=== PATIENT | female | born 1950 | race Caucasian/White ===

== ENCOUNTER → 2017-06-16 09:21 | Outpatient (CLI) | payer MEDICARE, OTHER, SELFPAY ==
[2017-06-16 10:08] LABS: Hemoglobin A1C 6.4 % (0.0-7.0)
[2017-06-16 10:50] LABS: Alanine Aminotransferase 48 U/L (12-78); Albumin Level 3.6 gm/dL (3.4-5.0); Albumin/Globulin Ratio 1.2 (1.1-1.8); Alkaline Phosphatase 139 U/L (46-116); Anion Gap 15.3 mEq/L (5-15); Aspartate Amino Transferase 37 U/L (15-37); Bilirubin,Total 0.6 mg/dL (0.2-1.0); Blood Urea Nitrogen 17 mg/dL (7-18); Carbon Dioxide 29 mmol/L (21.0-32.0); Chloride 103 mmol/L (98-107); Chol/HDL Ratio 3.9 (1-3.5); Cholesterol 205 mg/dL (140-200); Creatinine,Serum 0.74 mg/dL (0.55-1.02); Estimated Glomerular Filt Rate 79 ml/min (>60); GFR (African American) 95 ML/MIN (>60); Globulin 3.1 gm/dl (1.3-3.2); Glucose 105 mg/dL (74-106); HDL Cholesterol 52 mg/dL (29-89); LDL Cholesterol 133 mg/dL (0-130); Potassium 3.3 mmoL/L (3.5-5.1); Sodium 144 mmol/L (136-145); Total Protein,Serum 6.7 gm/dL (6.4-8.2); Triglycerides 98 mg/dL (30-200); Uric Acid 4.6 mg/dL (2.6-7.2); VLDL Cholesterol 20 mg/dL (0-40)
[2017-06-18 17:12] LABS: Levetiracetam (Keppra) 54.4 ug/mL (10.0-40.0)
== END ==
PROVIDERS: PCP Family Medicine; Visit Provider Family Medicine
DX: E79.0 Hyperuricemia without signs of inflammatory arthritis and tophaceous disease (principal); R73.9 Hyperglycemia, unspecified; G40.909 Epilepsy, unspecified, not intractable, without status epilepticus; I10 Essential (primary) hypertension; E78.5 Hyperlipidemia, unspecified
CPT/HCPCS: 36415; 80053; 80061; 80177; 83036; 84550

== ENCOUNTER → 2017-11-30 10:00 | Outpatient (CLI) | payer MEDICARE, OTHER, SELFPAY ==
[2017-11-30 11:05] LABS: Basophils % 0.4 % (0.1-2.0); Eosinophils # 0.2 K/mm3 (0.0-0.4); Eosinophils % 2.2 % (0.1-12.0); Hematocrit 39.1 % (37.0-47.0); Hemoglobin 12.1 g/dL (12.2-16.2); Lymphocytes # 2.4 K/mm3 (0.7-4.5); Lymphocytes % 29.4 K/mm3 (10-50); Mean Corpuscular Hemoglobin 25.3 pg (27.0-31.2); Mean Corpuscular Volume 81.5 fl (81-99); Mean Platelet Volume 7.5 fl (7.4-10.4); Monocytes # 0.4 K/mm3 (0.1-1.0); Monocytes % 4.6 % (1.7-9.3); Neutrophils # 5.1 K/mm3 (1.8-7.8); Neutrophils % 63.4 % (37.0-80.0); Platelet Count 325 K/mm3 (142-424); Red Cell Distribution Width 14.5 % (11.5-17.5); White Blood Count 8.1 K/mm3 (4.8-10.8)
[2017-11-30 11:25] LABS: Alanine Aminotransferase 26 U/L (12-78); Albumin Level 3.5 gm/dL (3.4-5.0); Albumin/Globulin Ratio 1.1 (1.1-1.8); Alkaline Phosphatase 122 U/L (46-116); Anion Gap 10.6 mEq/L (5-15); Aspartate Amino Transferase 23 U/L (15-37); Bilirubin,Total 0.6 mg/dL (0.2-1.0); Blood Urea Nitrogen 13 mg/dL (7-18); Calcium 8.6 mg/dL (8.5-10.1); Carbon Dioxide 32 mmol/L (21.0-32.0); Chloride 100 mmol/L (98-107); Creatinine,Serum 0.64 mg/dL (0.55-1.02); Estimated Glomerular Filt Rate 93 ml/min (>60); GFR (African American) 112 ML/MIN (>60); Globulin 3.2 gm/dl (1.3-3.2); Glucose 88 mg/dL (74-106); Potassium 3.6 mmoL/L (3.5-5.1); Sodium 139 mmol/L (136-145); Total Protein,Serum 6.7 gm/dL (6.4-8.2)
[2017-11-30 11:26] LABS: Chol/HDL Ratio 3.9 (1-3.5); Cholesterol 221 mg/dL (140-200); HDL Cholesterol 56 mg/dL (29-89); LDL Cholesterol 145 mg/dL (0-130); Magnesium 2.1 mg/dL (1.4-2.2); Triglycerides 101 mg/dL (30-200); Uric Acid 3.6 mg/dL (2.6-7.2); VLDL Cholesterol 20 mg/dL (0-40)
[2017-11-30 12:24] LABS: Hemoglobin A1C 5.8 % (0.0-7.0)
[2017-11-30 12:28] LABS: Erythrocyte Sedimentation Rate 56 mm/hr (0-30)
[2017-12-01 10:14] LABS: Immunoglobulin A, Qn 307 mg/dL (87-352); Immunoglobulin G, Qn 705 mg/dL (700-1600); Immunoglobulin M, Qn 35 mg/dL (26-217); RA Latex Turbid. <10.0 IU/mL (0.0-13.9)
[2017-12-01 16:38] LABS: Cytoplasmic (C-ANCA) <1:20 titer (Neg:<1:20)
[2017-12-02 08:07] LABS: Anti-DNA (DS) Ab Qn 3 IU/mL (0-9); Hepatitis B Surface Antigen Negative (Negative)
[2017-12-02 08:08] LABS: Perinuclear (P-ANCA) <1:20 titer (Neg:<1:20)
== END ==
PROVIDERS: Family Medicine; Visit Provider Psychiatry & Neurology Neurology
DX: I10 Essential (primary) hypertension (principal); E78.5 Hyperlipidemia, unspecified; E11.9 Type 2 diabetes mellitus without complications; M21.371 Foot drop, right foot; G40.909 Epilepsy, unspecified, not intractable, without status epilepticus
CPT/HCPCS: 36415; 80053; 80061; 80177; 82784; 83036; 83735; 84550; 85025; 85651; 86225; 86256; 86431; 87340

== ENCOUNTER → 2018-08-05 09:20 | Outpatient (CLI) | payer MEDICARE, OTHER, SELFPAY ==
[2018-08-06 12:28] LABS: Occult Blood,Stool Negative (Negative)
[2018-08-06 12:28] LABS: Occult Blood,Stool Negative (Negative)
== END ==
PROVIDERS: Visit Provider Nurse Practitioner Acute Care
DX: R10.9 Unspecified abdominal pain (principal)
CPT/HCPCS: 82272; G0328

== ENCOUNTER → 2018-08-06 11:35 | Outpatient (CLI) | payer MEDICARE, OTHER, SELFPAY ==
[2018-08-06 12:28] LABS: Occult Blood,Stool Negative (Negative)
== END ==
PROVIDERS: Visit Provider Nurse Practitioner Acute Care
DX: R10.9 Unspecified abdominal pain (principal)
CPT/HCPCS: 82272; G0328

== ENCOUNTER → 2018-10-04 11:32 | Outpatient (CLI) | payer MEDICARE, OTHER, SELFPAY ==
[2018-10-04 12:02] LABS: Basophils # 0.1 K/mm3 (0-0.2); Basophils % 0.9 % (0.1-2.0); Eosinophils # 0.2 K/mm3 (0.0-0.4); Eosinophils % 2.5 % (0.1-12.0); Hematocrit 34.2 % (37.0-47.0); Hemoglobin 10.9 g/dL (12.2-16.2); Lymphocytes # 2.9 K/mm3 (0.7-4.5); Mean Corpuscular HGB Conc 31.8 g/dL (31.8-35.4); Mean Corpuscular Hemoglobin 27.3 pg (27.0-31.2); Mean Corpuscular Volume 85.8 fl (81-99); Mean Platelet Volume 7.2 fl (7.4-10.4); Monocytes # 0.4 K/mm3 (0.1-1.0); Monocytes % 4.4 % (1.7-9.3); Neutrophils # 5.3 K/mm3 (1.8-7.8); Neutrophils % 59.3 % (37.0-80.0); Platelet Count 372 K/mm3 (142-424); Red Blood Count 3.98 M/mm3 (4.20-5.40); Red Cell Distribution Width 14.7 % (11.5-17.5); White Blood Count 8.9 K/mm3 (4.8-10.8)
[2018-10-04 14:41] LABS: Alanine Aminotransferase 28 U/L (12-78); Albumin Level 4.2 gm/dL (3.4-5.0); Albumin/Globulin Ratio 1.2 (1.1-1.8); Alkaline Phosphatase 104 U/L (46-116); Anion Gap 15.2 mEq/L (5-15); Aspartate Amino Transferase 23 U/L (15-37); Bilirubin,Total 0.5 mg/dL (0.2-1.0); Blood Urea Nitrogen 25 mg/dL (7-18); Calcium 9.5 mg/dL (8.5-10.1); Carbon Dioxide 29 mmol/L (21.0-32.0); Chloride 102 mmol/L (98-107); Chol/HDL Ratio 3.8 (1-3.5); Cholesterol 252 mg/dL (140-200); Creatinine,Serum 0.89 mg/dL (0.55-1.02); Estimated Glomerular Filt Rate 63 ml/min (>60); GFR (African American) 77 ML/MIN (>60); Globulin 3.5 gm/dl (1.3-3.2); Glucose 98 mg/dL (74-106); HDL Cholesterol 66 mg/dL (29-89); LDL Cholesterol 173 mg/dL (0-130); Magnesium 2.5 mg/dL (1.4-2.2); Potassium 4.2 mmoL/L (3.5-5.1); Sodium 142 mmol/L (136-145); Total Protein,Serum 7.7 gm/dL (6.4-8.2); Triglycerides 66 mg/dL (30-200); Uric Acid 4.2 mg/dL (2.6-7.2); VLDL Cholesterol 13 mg/dL (0-40)
[2018-10-04 18:44] LABS: Hemoglobin A1C 5.5 % (0.0-7.0)
[2018-10-05 09:18] LABS: Iron 59 ug/dL (27-139); UIBC 265 ug/dL (118-369)
[2018-10-05 12:43] LABS: Iron Saturation 18 % (15-55)
[2018-10-07 08:06] LABS: Levetiracetam (Keppra) 65.9 ug/mL (10.0-40.0)
== END ==
PROVIDERS: Visit Provider Family Medicine
DX: E11.9 Type 2 diabetes mellitus without complications (principal); I10 Essential (primary) hypertension; E78.5 Hyperlipidemia, unspecified; E79.0 Hyperuricemia without signs of inflammatory arthritis and tophaceous disease; D50.9 Iron deficiency anemia, unspecified; G40.909 Epilepsy, unspecified, not intractable, without status epilepticus
CPT/HCPCS: 36415; 80053; 80061; 80177; 83036; 83540; 83550; 83735; 84550; 85025

== ENCOUNTER → 2019-01-25 14:01 | Outpatient (POV) | payer MEDICARE, OTHER, SELFPAY | DX: Z00.00 Encounter for general adult medical examination without abnormal findings (principal) ==

== ENCOUNTER → 2019-02-22 15:20 | Outpatient (POV) | payer MEDICARE, OTHER, SELFPAY | DX: Z00.00 Encounter for general adult medical examination without abnormal findings (principal) ==

== ENCOUNTER → 2019-03-29 14:30 | Outpatient (POV) | payer MEDICARE, OTHER, SELFPAY | DX: Z00.00 Encounter for general adult medical examination without abnormal findings (principal) ==

== ENCOUNTER → 2019-09-15 09:15 | Outpatient (CLI) | payer MEDICARE, OTHER, SELFPAY ==
[2019-09-15 11:27] LABS: Chloride 101 mmol/L (98-107)
[2019-09-15 11:28] LABS: Potassium 4.1 mmoL/L (3.5-5.1); Sodium 142 mmol/L (136-145)
[2019-09-15 11:30] LABS: Alanine Aminotransferase 27 U/L (12-78); Albumin Level 4.1 g/dl (3.5-5.0); Albumin/Globulin Ratio 1.6 (1.1-1.8); Alkaline Phosphatase 106 U/L (38-126); Anion Gap 11.1 mEq/L (5-15); Aspartate Amino Transferase 40 U/L (14-36); Bilirubin,Total 0.3 mg/dl (0.2-1.3); Blood Urea Nitrogen 34 mg/dl (7-17); Carbon Dioxide 34 mmol/L (22.0-30.0); Cholesterol 135 mg/dl (140-200); Estimated Glomerular Filt Rate 49 ml/min (>60); GFR (African American) 60 ML/MIN (>60); Globulin 2.6 g/dL (1.3-3.2); Total Protein,Serum 6.7 g/dl (6.3-8.2); Triglycerides 89 mg/dl (30-150); Uric Acid 4.3 mg/dl (2.5-6.2); VLDL Cholesterol 18 mg/dL (0-40)
[2019-09-15 11:31] LABS: Chol/HDL Ratio 2.3 (1-3.5); HDL Cholesterol 60 mg/dl (40-60)
[2019-09-15 11:37] LABS: Calcium 8.9 mg/dl (8.4-10.2)
[2019-09-15 11:42] LABS: Direct LDL Cholesterol 60.93 mg/dL (100-129)
[2019-09-15 11:49] LABS: Glucose 78 mg/dl (74-100)
[2019-09-15 18:04] LABS: Hemoglobin A1C 5.9 % (4.0-6.0)
[2019-09-17 16:19] LABS: Levetiracetam (Keppra) 75.4 ug/mL (10.0-40.0)
== END ==
PROVIDERS: Visit Provider Family Medicine
DX: G40.909 Epilepsy, unspecified, not intractable, without status epilepticus (principal); E79.0 Hyperuricemia without signs of inflammatory arthritis and tophaceous disease; E78.5 Hyperlipidemia, unspecified; I10 Essential (primary) hypertension
CPT/HCPCS: 36415; 80053; 80061; 80177; 83036; 84550

== ENCOUNTER → 2019-12-20 14:40 | Outpatient (POV) | payer MEDICARE, OTHER, SELFPAY | PROVIDERS: PCP Family Medicine | DX: Z00.00 Encounter for general adult medical examination without abnormal findings (principal) ==

== ENCOUNTER → 2019-12-26 10:33 | Outpatient (CLI) | payer MEDICARE, OTHER, SELFPAY ==
[2019-12-27 15:14] LABS: Covid-19 Nasal PCR Sendout Lex NOT DETECTED
== END ==
LOC: UTC.OUT 10:37 → COVID.OUT 10:45
PROVIDERS: PCP Family Medicine; Visit Provider Family Medicine
DX: Z03.818 Encounter for observation for suspected exposure to other biological agents ruled out (principal)
CPT/HCPCS: U0004

== ENCOUNTER → 2020-02-29 12:16 | Outpatient (CLI) | payer MEDICARE, OTHER, SELFPAY ==
[2020-03-01 14:21] LABS: Covid-19 Nasal PCR Sendout Lex NOT DETECTED
== END ==
PROVIDERS: PCP Family Medicine; Visit Provider Family Medicine
DX: Z03.818 Encounter for observation for suspected exposure to other biological agents ruled out (principal)
CPT/HCPCS: U0004

== ENCOUNTER → 2020-03-27 14:39 | Outpatient (POV) | payer MEDICARE, OTHER, SELFPAY | DX: Z00.00 Encounter for general adult medical examination without abnormal findings (principal) ==

== ENCOUNTER → 2020-04-03 14:31 | Outpatient (POV) | payer MEDICARE, OTHER, SELFPAY | DX: Z00.00 Encounter for general adult medical examination without abnormal findings (principal) ==

== ENCOUNTER → 2020-05-13 09:49 | Outpatient (CLI) | payer MEDICARE, OTHER, SELFPAY ==
[2020-05-13 10:58] LABS: Alanine Aminotransferase 23 U/L (12-78); Albumin Level 4.6 g/dl (3.5-5.0); Albumin/Globulin Ratio 1.7 (1.1-1.8); Alkaline Phosphatase 114 U/L (38-126); Anion Gap 12.4 mEq/L (5-15); Aspartate Amino Transferase 40 U/L (14-36); Bilirubin,Total 0.6 mg/dl (0.2-1.3); Blood Urea Nitrogen 34 mg/dl (7-17); Calcium 9.4 mg/dl (8.4-10.2); Carbon Dioxide 33 mmol/L (22.0-30.0); Chloride 99 mmol/L (98-107); Chol/HDL Ratio 2.4 (1-3.5); Cholesterol 180 mg/dl (140-200); Estimated Glomerular Filt Rate 49 ml/min (>60); GFR (African American) 60 ML/MIN (>60); Globulin 2.7 g/dL (1.3-3.2); Glucose 109 mg/dl (74-100); HDL Cholesterol 74 mg/dl (40-60); Potassium 4.4 mmoL/L (3.5-5.1); Sodium 140 mmol/L (136-145); Total Protein,Serum 7.3 g/dl (6.3-8.2); Triglycerides 102 mg/dl (30-150); Uric Acid 4.9 mg/dl (2.5-6.2); VLDL Cholesterol 20 mg/dL (0-40)
[2020-05-13 11:17] LABS: Direct LDL Cholesterol 72.71 mg/dL (100-129)
[2020-05-13 11:46] LABS: Hemoglobin A1C 6.2 % (4.0-6.0)
[2020-05-16 11:01] LABS: Levetiracetam (Keppra) 92.4 ug/mL (10.0-40.0)
== END ==
PROVIDERS: Visit Provider Family Medicine
DX: E79.0 Hyperuricemia without signs of inflammatory arthritis and tophaceous disease (principal); E78.5 Hyperlipidemia, unspecified; E11.9 Type 2 diabetes mellitus without complications; I10 Essential (primary) hypertension; G40.909 Epilepsy, unspecified, not intractable, without status epilepticus
CPT/HCPCS: 36415; 80053; 80061; 80177; 83036; 84550

== ENCOUNTER → 2020-06-22 11:29 | Outpatient (CLI) | payer MEDICARE, OTHER, SELFPAY ==
[2020-06-22 12:20] LABS: Basophils # 0.1 K/mm3 (0-0.2); Basophils % 0.7 % (0.1-2.0); Eosinophils # 0.4 K/mm3 (0.0-0.4); Eosinophils % 3.3 % (0.1-12.0); Hematocrit 33.5 % (37.0-47.0); Hemoglobin 10.5 g/dL (12.2-16.2); Lymphocytes # 2.5 K/mm3 (0.7-4.5); Lymphocytes % 22.4 % (10-50); Mean Corpuscular HGB Conc 31.2 g/dL (31.8-35.4); Mean Corpuscular Volume 86.3 fl (81-99); Mean Platelet Volume 7.6 fl (7.4-10.4); Monocytes # 0.4 K/mm3 (0.1-1.0); Monocytes % 3.3 % (1.7-9.3); Neutrophils # 7.8 K/mm3 (1.8-7.8); Neutrophils % 70.2 % (37.0-80.0); Platelet Count 385 K/mm3 (142-424); Red Blood Count 3.88 M/mm3 (4.20-5.40); Red Cell Distribution Width 15.6 % (11.5-17.5); White Blood Count 11.1 K/mm3 (4.8-10.8)
[2020-06-22 12:40] LABS: Iron 60 ug/dL (37-170)
[2020-06-22 13:16] LABS: Ferritin 89.8 ng/ml (11.1-264)
[2020-06-22 15:08] LABS: Coronavirus 19 IgG Antibody Negative (Negative); Coronavirus 19 IgM Antibody Negative (Negative)
== END ==
PROVIDERS: Physician Assistant Surgical; Visit Provider Internal Medicine Gastroenterology
DX: Z01.812 Encounter for preprocedural laboratory examination; Z11.52 Encounter for screening for COVID-19; E83.10 Disorder of iron metabolism, unspecified; E53.8 Deficiency of other specified B group vitamins; Z98.84 Bariatric surgery status
CPT/HCPCS: 36415; 82728; 83540; 85025; 86328

== ENCOUNTER 2020-06-24 12:16 | Day surgery (SDC) | payer MEDICARE, OTHER, SELFPAY ==
[2020-06-18 14:09] VITALS: BMI 29.9
[2020-06-24] VITALS (7 sets, daily range): BP systolic 95–128; BP diastolic 46–84; PULSE 62–93; RESP 12–20; TEMP 36.4–36.7; O2SAT 95–98
--- NOTE | 2020-06-24 14:27 | P.PCN_ITS ---
[facility] Procedure Note Procedure Note:: Colonoscopy Procedure Report: Colonoscopy with cold biopsies Endoscopist: Mike Rich II, MD Referring physician: Broderick Roberts MD Date of Procedure: June 24, 2020 Equipment: Olympus 180 variable stiffness pediatric colonoscope Sedation: MAC sedation Indication: Mrs. Mondragon is a 69-year-old female with chronic left lower quadrant abdominal pain and IBS. The patient does have a history of sucrase isomaltase deficiency and has improved with dietary changes. The patient does take a mixture of CALM and Konsyl. She has intermittent left lower quadrant abdominal pain that can be excruciating every couple of weeks. She reports no rectal bleeding and was Hemoccult negative last year. She reports no weight loss, change in bowel habits or family history of colon cancer. The patient's last colonoscopy was December 2012. She had a CAT scan of the abdomen and pelvis in April 2015 that showed some sigmoid diverticulosis. 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 She does report getting some leakage or fecal incontinence with fecal residue in her underpants. She also reports having back surgery. Procedure: Prior to the procedure, a history and physical exam was performed, and patient's medications and allergies were reviewed. The risks, benefits and alternatives of the sedation and procedure were discussed with the patient. All questions were answered and informed consent was obtained. The patient was brought to the procedure room. Patient identification and proposed procedure were verified by the physician and the nurse. The patient was placed in a left lateral decubitus position and the scope was passed under direct vision. Throughout the procedure, the patient's blood pressure, pulse, and oxygen saturations were monitored continuously. The colonoscopy was accomplished without difficulty. The patient tolerated the procedure well. Findings: On digital rectal examination there was normal rectal tone. There were no external hemorrhoids. The colonoscope was introduced through the anal canal to the rectum and advanced to the cecum. The ileocecal valve and appendiceal orifice were identified. The scope was advanced a short distance into the ileum which appeared grossly normal. The scope was then withdrawn into the colon. The cecum, ascending and transverse colon and mucosa were grossly normal. There were scattered diverticuli throughout the descending and sigmoid colon (LEFT colon). Cold biopsies were taken from the left colon/sigmoid colon to rule out microscopic colitis. The rectum itself was normal. Upon retroflexion within the rectum there were grade 1-2 internal hemorrhoids. The preparation was fair to good throughout with Kelly Preparation Score of 7 out of 9. The cecal time was 10 minutes. Impression: 1. Left-sided diverticulosis 2. Grade 1-2 internal hemorrhoids Plan: I will follow-up the biopsies. I would encourage bulk fiber but I would like for her to hold the magnesium based CALM. I do suspect that she has some fecal incontinence and obstipation related to some sacral nerve impairment. The patient will not require surveillance/screening colonoscopy again for 10 years by ACS guidelines.
== END 2020-06-24 15:18 | disposition home or self-care (01) ==
LOC: OUTP 12:19
PROVIDERS: PCP Family Medicine; Visit Provider Internal Medicine Gastroenterology
PROC: 0DJD8ZZ Inspection of Lower Intestinal Tract, Via Natural or Artificial Opening Endoscopic (ICD-10-PCS; CPT 45378; principal; 2020-06-24 13:30)
DX: K57.30 Diverticulosis of large intestine without perforation or abscess without bleeding (principal); K64.0 First degree hemorrhoids; Z98.84 Bariatric surgery status; K58.9 Irritable bowel syndrome, unspecified; E74.31 Sucrase-isomaltase deficiency; I10 Essential (primary) hypertension; E78.5 Hyperlipidemia, unspecified; J45.909 Unspecified asthma, uncomplicated; G47.33 Obstructive sleep apnea (adult) (pediatric); R56.9 Unspecified convulsions; Z83.3 Family history of diabetes mellitus; Z80.9 Family history of malignant neoplasm, unspecified
CPT/HCPCS: 45380; 88305

== ENCOUNTER → 2020-11-09 10:35 | Outpatient (CLI) | payer MEDICARE, OTHER, SELFPAY ==
[2020-11-09 11:34] LABS: Creatinine,Urine Random 103 mg/dL (Not Estab.)
[2020-11-09 11:37] LABS: Microalbumin/Creatinine Ratio 8.2
[2020-11-09 12:20] LABS: Hemoglobin A1C 5.7 % (4.0-6.0)
[2020-11-09 13:21] LABS: Alanine Aminotransferase 19 U/L (12-78); Albumin Level 4.2 g/dl (3.5-5.0); Albumin/Globulin Ratio 1.6 (1.1-1.8); Alkaline Phosphatase 107 U/L (38-126); Aspartate Amino Transferase 32 U/L (14-36); Bilirubin,Total 0.7 mg/dl (0.2-1.3); Blood Urea Nitrogen 28 mg/dl (7-17); Calcium 9.1 mg/dl (8.4-10.2); Carbon Dioxide 27 mmol/L (22.0-30.0); Chloride 103 mmol/L (98-107); Chol/HDL Ratio 3.5 (1-3.5); Cholesterol 176 mg/dl (140-200); Estimated Glomerular Filt Rate 55 ml/min (>60); GFR (African American) 67 ML/MIN (>60); Globulin 2.6 g/dL (1.3-3.2); Glucose 120 mg/dl (74-100); HDL Cholesterol 50 mg/dl (40-60); Sodium 136 mmol/L (136-145); Total Protein,Serum 6.8 g/dl (6.3-8.2); Triglycerides 123 mg/dl (30-150); VLDL Cholesterol 25 mg/dL (0-40)
[2020-11-09 13:32] LABS: Direct LDL Cholesterol 91.21 mg/dL (100-129)
[2020-11-12 22:38] LABS: Levetiracetam (Keppra) 62.6 ug/mL (10.0-40.0)
== END ==
PROVIDERS: Visit Provider Family Medicine
DX: I10 Essential (primary) hypertension (principal); E87.5 Hyperkalemia; E11.9 Type 2 diabetes mellitus without complications; R56.9 Unspecified convulsions; M15.9 Polyosteoarthritis, unspecified
CPT/HCPCS: 36415; 80053; 80061; 80177; 82043; 82570; 83036; 83735

== ENCOUNTER → 2020-12-30 08:33 | Outpatient (CLI) | payer MEDICARE, OTHER, SELFPAY ==
--- NOTE | 2020-12-30 08:42 | XR_ITS ---
PROCEDURE: XR LUMBAR SPINE MIN 4V CLINICAL INDICATION: SPONDYLOSIS OF LUMBAR REGION COMPARISON: CR [id number] LUMBAR SPINE-2 TO 3 VIEWS from 08/05/2015 FINDINGS: There are postsurgical changes with inter pedicular screws and connecting rods from T11 to S1. Screws are present also from the inferior aspect of the deisy extending into the sacrum. There is prominent zone of lucency around the sacral screws raising the suspicion of loosening or infection. In the paravertebral region bilaterally at L4 and L5 and on the right at L1-L2 and L3. There is only 1 inter pedicular screw at the L2 region which is on the right and is angulated inferiorly. There has been prior laminectomy from L1-L5. And anterior small bone plate is present at the S1 region. Degenerative disc disease is present involving the lower thoracic spine and the entire lumbar spine. There is 12 mm anterolisthesis of L4 on L5 slightly increased previously measuring 9 mm. There is retrolisthesis of L1 on L2 of 8 mm. No obvious acute fracture or dislocation. Other findings include surgical clips in the right upper quadrant, total left hip prosthesis, and suture lines in the left upper quadrant IMPRESSION: Extensive postsurgical changes of the lower thoracic lumbar spine and sacrum. Prominent zone of lucency around the sacral screws which may indicate loosening or infection. Diffuse spondylosis of the lumbar spine with anterolisthesis of L4 on L5 and retrolisthesis of L1 on L2. Please see above for detail Dictated by: Corey Keller MD 12/30/2020 09:10 Corey Keller MD in [place] 12/30/2020 09:10
== END ==
PROVIDERS: PCP Family Medicine; Visit Provider Family Medicine
DX: M47.816 Spondylosis without myelopathy or radiculopathy, lumbar region (principal)
CPT/HCPCS: 72110

== ENCOUNTER → 2021-01-02 09:03 | Outpatient (CLI) | payer MEDICARE, OTHER, SELFPAY ==
[2021-01-02 11:58] LABS: Basophils # 0.1 K/mm3 (0-0.2); Basophils % 0.9 % (0.1-2.0); Eosinophils # 0.2 K/mm3 (0.0-0.4); Eosinophils % 3.3 % (0.1-12.0); Hematocrit 32.9 % (37.0-47.0); Hemoglobin 10.2 g/dL (12.2-16.2); Lymphocytes # 1.8 K/mm3 (0.7-4.5); Lymphocytes % 24.3 % (10-50); Mean Corpuscular HGB Conc 31.1 g/dL (31.8-35.4); Mean Corpuscular Hemoglobin 27.7 pg (27.0-31.2); Mean Corpuscular Volume 88.9 fl (81-99); Mean Platelet Volume 8.2 fl (7.4-10.4); Monocytes # 0.3 K/mm3 (0.1-1.0); Neutrophils % 67.5 % (37.0-80.0); Platelet Count 283 K/mm3 (142-424); White Blood Count 7.4 K/mm3 (4.8-10.8)
== END ==
LOC: UTC.OUT 09:05 → COVID.OUT 11:12
PROVIDERS: PCP Family Medicine; Visit Provider Nurse Practitioner Family
DX: Z20.822 Contact with and (suspected) exposure to COVID-19 (principal)
CPT/HCPCS: 36415; 85025; U0003

== ENCOUNTER → 2021-01-27 13:43 | Outpatient (CLI) | payer MEDICARE, OTHER, SELFPAY | PROVIDERS: PCP Family Medicine; Visit Provider Family Medicine | DX: Z20.822 Contact with and (suspected) exposure to COVID-19 (principal) | CPT/HCPCS: U0003 ==

== ENCOUNTER → 2021-03-26 08:02 | Outpatient (CLI) | payer MEDICARE, OTHER, SELFPAY ==
[2021-03-26 08:58] LABS: Alanine Aminotransferase 23 U/L (12-78); Albumin Level 3.9 g/dl (3.5-5.0); Albumin/Globulin Ratio 1.5 (1.1-1.8); Alkaline Phosphatase 82 U/L (38-126); Anion Gap 11.4 mEq/L (5-15); Aspartate Amino Transferase 36 U/L (14-36); Bilirubin,Total 0.3 mg/dl (0.2-1.3); Blood Urea Nitrogen 25 mg/dl (7-17); Calcium 9.1 mg/dl (8.4-10.2); Carbon Dioxide 29 mmol/L (22.0-30.0); Chloride 103 mmol/L (98-107); Chol/HDL Ratio 2.5 (1-3.5); Cholesterol 148 mg/dl (140-200); Estimated Glomerular Filt Rate 62 ml/min (>60); GFR (African American) 75 ML/MIN (>60); Globulin 2.6 g/dL (1.3-3.2); Glucose 99 mg/dl (74-100); HDL Cholesterol 60 mg/dl (40-60); Potassium 4.4 mmoL/L (3.5-5.1); Sodium 139 mmol/L (136-145); Total Protein,Serum 6.5 g/dl (6.3-8.2); Triglycerides 113 mg/dl (30-150); Uric Acid 6.5 mg/dl (2.5-6.2); VLDL Cholesterol 23 mg/dL (0-40)
[2021-03-26 09:09] LABS: Direct LDL Cholesterol 59.46 mg/dL (100-129)
[2021-03-29 17:08] LABS: Levetiracetam (Keppra) 85.1 ug/mL (10.0-40.0)
== END ==
PROVIDERS: Visit Provider Family Medicine
DX: I10 Essential (primary) hypertension (principal); E78.5 Hyperlipidemia, unspecified; E79.0 Hyperuricemia without signs of inflammatory arthritis and tophaceous disease; G40.909 Epilepsy, unspecified, not intractable, without status epilepticus
CPT/HCPCS: 36415; 80053; 80061; 80177; 84550

== ENCOUNTER → 2021-09-20 08:33 | Outpatient (CLI) | payer MEDICARE, OTHER, SELFPAY ==
[2021-09-20 09:24] LABS: Basophils # 0.1 K/mm3 (0-0.2); Eosinophils # 0.2 K/mm3 (0.0-0.4); Eosinophils % 2.8 % (0.1-12.0); Hematocrit 34.6 % (37.0-47.0); Hemoglobin 10.9 g/dL (12.2-16.2); Lymphocytes # 2.4 K/mm3 (0.7-4.5); Lymphocytes % 28.5 % (10-50); Mean Corpuscular HGB Conc 31.4 g/dL (31.8-35.4); Mean Corpuscular Hemoglobin 28.3 pg (27.0-31.2); Mean Corpuscular Volume 90.4 fl (81-99); Mean Platelet Volume 8.5 fl (7.4-10.4); Monocytes # 0.4 K/mm3 (0.1-1.0); Monocytes % 4.4 % (1.7-9.3); Neutrophils # 5.3 K/mm3 (1.8-7.8); Neutrophils % 63.3 % (37.0-80.0); Platelet Count 317 K/mm3 (142-424); Red Blood Count 3.83 M/mm3 (4.20-5.40); Red Cell Distribution Width 15.2 % (11.5-17.5); White Blood Count 8.3 K/mm3 (4.8-10.8)
[2021-09-20 11:03] LABS: Alanine Aminotransferase 22 U/L (12-78); Albumin Level 3.9 g/dl (3.5-5.0); Albumin/Globulin Ratio 1.8 (1.1-1.8); Alkaline Phosphatase 86 U/L (38-126); Anion Gap 8.8 mEq/L (5-15); Aspartate Amino Transferase 34 U/L (14-36); Bilirubin,Total 0.7 mg/dl (0.2-1.3); Blood Urea Nitrogen 20 mg/dl (7-17); Calcium 8.8 mg/dl (8.4-10.2); Carbon Dioxide 32 mmol/L (22.0-30.0); Chloride 101 mmol/L (98-107); Chol/HDL Ratio 2.8 (1-3.5); Cholesterol 147 mg/dl (140-200); Estimated Glomerular Filt Rate 62 ml/min (>60); GFR (African American) 75 ML/MIN (>60); Globulin 2.2 g/dL (1.3-3.2); Glucose 102 mg/dl (74-100); HDL Cholesterol 53 mg/dl (40-60); Lipase 248 U/L (23-300); Potassium 3.8 mmoL/L (3.5-5.1); Sodium 138 mmol/L (136-145); Total Protein,Serum 6.1 g/dl (6.3-8.2); Triglycerides 101 mg/dl (30-150); Uric Acid 4.2 mg/dl (2.5-6.2); VLDL Cholesterol 20 mg/dL (0-40)
[2021-09-20 11:14] LABS: Direct LDL Cholesterol 61.08 mg/dL (100-129)
[2021-09-25 17:44] LABS: Levetiracetam (Keppra) 103.7 ug/mL (10.0-40.0)
== END ==
PROVIDERS: PCP Family Medicine; Visit Provider Family Medicine
DX: I10 Essential (primary) hypertension (principal); E78.5 Hyperlipidemia, unspecified; E79.0 Hyperuricemia without signs of inflammatory arthritis and tophaceous disease; K21.9 Gastro-esophageal reflux disease without esophagitis; R11.0 Nausea; G40.909 Epilepsy, unspecified, not intractable, without status epilepticus
CPT/HCPCS: 36415; 80053; 80061; 80177; 83690; 84550; 85025

== ENCOUNTER 2021-09-23 13:00 | Outpatient (RCR) | payer MEDICARE, OTHER, SELFPAY | END 2021-09-23 13:05 | disposition home or self-care (01) | LOC: PT 13:00 | PROVIDERS: PCP Family Medicine; Visit Provider Orthopaedic Surgery Adult Reconstructive Orthopaedic Surgery | DX: M25.552 Pain in left hip (principal); Z96.641 Presence of right artificial hip joint; Z98.1 Arthrodesis status; Z47.1 Aftercare following joint replacement surgery | CPT/HCPCS: 97010; 97014; 97033; 97110; 97163; 97164; G0283 ==

== ENCOUNTER → 2021-10-02 11:51 | Outpatient (CLI) | payer MEDICARE, OTHER, SELFPAY ==
[2021-10-02 12:24] LABS: Basophils # 0.1 K/mm3 (0-0.2); Basophils % 0.7 % (0.1-2.0); Eosinophils # 0.2 K/mm3 (0.0-0.4); Eosinophils % 2.4 % (0.1-12.0); Hematocrit 34.9 % (37.0-47.0); Hemoglobin 10.8 g/dL (12.2-16.2); Lymphocytes # 2.3 K/mm3 (0.7-4.5); Lymphocytes % 23.3 % (10-50); Mean Corpuscular HGB Conc 30.9 g/dL (31.8-35.4); Mean Corpuscular Hemoglobin 27.4 pg (27.0-31.2); Mean Corpuscular Volume 88.7 fl (81-99); Mean Platelet Volume 7.9 fl (7.4-10.4); Monocytes # 0.4 K/mm3 (0.1-1.0); Monocytes % 4.1 % (1.7-9.3); Neutrophils # 6.7 K/mm3 (1.8-7.8); Neutrophils % 69.4 % (37.0-80.0); Platelet Count 313 K/mm3 (142-424); Red Blood Count 3.93 M/mm3 (4.20-5.40); Red Cell Distribution Width 14.5 % (11.5-17.5); White Blood Count 9.7 K/mm3 (4.8-10.8)
[2021-10-02 13:04] LABS: Iron 56 ug/dL (37-170)
[2021-10-02 13:15] LABS: Total Iron Binding Capacity 341 ug/dL (265-497)
[2021-10-02 14:27] LABS: Vitamin B12 530 pg/mL (239-931)
== END ==
PROVIDERS: PCP Family Medicine; Visit Provider Family Medicine
DX: D64.9 Anemia, unspecified (principal)
CPT/HCPCS: 36415; 82607; 82746; 83540; 83550; 85025

== ENCOUNTER → 2022-02-19 10:11 | Outpatient (CLI) | payer MEDICARE, OTHER, SELFPAY ==
[2022-02-19 11:22] LABS: Basophils # 0.1 K/mm3 (0-0.2); Basophils % 0.9 % (0.1-2.0); Eosinophils # 0.4 K/mm3 (0.0-0.4); Eosinophils % 3.9 % (0.1-12.0); Hematocrit 33.2 % (37.0-47.0); Hemoglobin 10.6 g/dL (12.2-16.2); Lymphocytes # 2.2 K/mm3 (0.7-4.5); Lymphocytes % 23.5 % (10-50); Mean Corpuscular HGB Conc 31.8 g/dL (31.8-35.4); Mean Corpuscular Hemoglobin 27.9 pg (27.0-31.2); Mean Corpuscular Volume 87.6 fl (81-99); Mean Platelet Volume 8.4 fl (7.4-10.4); Monocytes # 0.4 K/mm3 (0.1-1.0); Monocytes % 4.1 % (1.7-9.3); Neutrophils # 6.2 K/mm3 (1.8-7.8); Neutrophils % 67.6 % (37.0-80.0); Platelet Count 337 K/mm3 (142-424); Red Blood Count 3.79 M/mm3 (4.20-5.40); Red Cell Distribution Width 15.9 % (11.5-17.5); White Blood Count 9.2 K/mm3 (4.8-10.8)
[2022-02-19 11:30] LABS: Alanine Aminotransferase 20 U/L (12-78); Albumin Level 3.7 g/dl (3.5-5.0); Albumin/Globulin Ratio 1.4 (1.1-1.8); Alkaline Phosphatase 107 U/L (38-126); Anion Gap 16.2 mEq/L (5-15); Aspartate Amino Transferase 36 U/L (14-36); Bilirubin,Total 0.4 mg/dl (0.2-1.3); Blood Urea Nitrogen 30 mg/dl (7-17); Carbon Dioxide 25 mmol/L (22.0-30.0); Chloride 100 mmol/L (98-107); Chol/HDL Ratio 2.6 (1-3.5); Cholesterol 137 mg/dl (140-200); Estimated Glomerular Filt Rate 49 ml/min (>60); GFR (African American) 59 ML/MIN (>60); Globulin 2.6 g/dL (1.3-3.2); Glucose 101 mg/dl (74-100); HDL Cholesterol 52 mg/dl (40-60); Potassium 4.2 mmoL/L (3.5-5.1); Sodium 137 mmol/L (136-145); Total Protein,Serum 6.3 g/dl (6.3-8.2); Triglycerides 101 mg/dl (30-150); Uric Acid 5.1 mg/dl (2.5-6.2); VLDL Cholesterol 20 mg/dL (0-40)
[2022-02-19 11:41] LABS: Direct LDL Cholesterol 56.84 mg/dL (100-129)
[2022-02-25 19:22] LABS: Levetiracetam (Keppra) 117.8 ug/mL (10.0-40.0)
== END ==
PROVIDERS: PCP Family Medicine; Visit Provider Family Medicine
DX: G40.909 Epilepsy, unspecified, not intractable, without status epilepticus (principal); D50.9 Iron deficiency anemia, unspecified; I10 Essential (primary) hypertension; E78.5 Hyperlipidemia, unspecified; E79.0 Hyperuricemia without signs of inflammatory arthritis and tophaceous disease
CPT/HCPCS: 36415; 80053; 80061; 80177; 84550; 85025

== ENCOUNTER → 2022-06-03 11:11 | Outpatient (CLI) | payer MEDICARE, OTHER, SELFPAY ==
[2022-06-03 13:16] LABS: Albumin Level 4.4 g/dl (3.5-5.0); Anion Gap 13.8 mEq/L (5-15); Blood Urea Nitrogen 29 mg/dl (7-17); Calcium 9.6 mg/dl (8.4-10.2); Carbon Dioxide 26 mmol/L (22.0-30.0); Chloride 104 mmol/L (98-107); Estimated Glomerular Filt Rate 40 ml/min (>60); GFR (African American) 49 ML/MIN (>60); Glucose 91 mg/dl (74-100); Phosphorous 4.5 mg/dl (2.5-4.5); Potassium 4.8 mmoL/L (3.5-5.1); Sodium 139 mmol/L (136-145)
[2022-06-05 08:13] LABS: Cystatin C 1.52 mg/L (0.78-1.15)
== END ==
PROVIDERS: PCP Family Medicine; Visit Provider Internal Medicine
DX: M81.0 Age-related osteoporosis without current pathological fracture (principal); R94.4 Abnormal results of kidney function studies
CPT/HCPCS: 36415; 80069; 82610

== ENCOUNTER → 2022-07-10 15:18 | Outpatient (CLI) | payer MEDICARE, OTHER, SELFPAY | PROVIDERS: PCP Family Medicine; Visit Provider Orthopaedic Surgery Orthopaedic Surgery of the Spine | DX: Z01.812 Encounter for preprocedural laboratory examination (principal); Z11.52 Encounter for screening for COVID-19 | CPT/HCPCS: C9803; U0003; U0005 ==

== ENCOUNTER → 2022-07-17 14:02 | Outpatient (CLI) | payer MEDICARE, OTHER, SELFPAY | PROVIDERS: PCP Family Medicine; Visit Provider Orthopaedic Surgery Orthopaedic Surgery of the Spine | DX: Z01.812 Encounter for preprocedural laboratory examination (principal); Z11.52 Encounter for screening for COVID-19 | CPT/HCPCS: C9803; U0003; U0005 ==

== ENCOUNTER → 2022-08-17 11:49 | Outpatient (CLI) | payer MEDICARE, OTHER, SELFPAY ==
[2022-08-17 13:03] LABS: Magnesium 2.1 mg/dl (1.6-2.3)
[2022-08-20 05:23] LABS: Tandem-R Ostase 35.9 ug/L (.)
[2022-08-23 13:45] LABS: C-Telopeptide Serum 1339 pg/mL (.)
== END ==
PROVIDERS: PCP Family Medicine; Visit Provider Internal Medicine
DX: M81.0 Age-related osteoporosis without current pathological fracture (principal)
CPT/HCPCS: 36415; 82523; 83735; 83937; 84080

== ENCOUNTER → 2022-09-08 11:20 | Outpatient (CLI) | payer MEDICARE, OTHER, SELFPAY ==
[2022-09-08 13:55] LABS: Albumin Level 3.9 g/dl (3.5-5.0); Anion Gap 12.7 mEq/L (5-15); Blood Urea Nitrogen 21 mg/dl (7-17); Calcium 8.6 mg/dl (8.4-10.2); Carbon Dioxide 26 mmol/L (22.0-30.0); Chloride 104 mmol/L (98-107); Estimated Glomerular Filt Rate 71 ml/min (>60); GFR (African American) 86 ML/MIN (>60); Glucose 81 mg/dl (74-100); Phosphorous 4.3 mg/dl (2.5-4.5); Potassium 4.7 mmoL/L (3.5-5.1); Sodium 138 mmol/L (136-145)
== END ==
PROVIDERS: PCP Family Medicine; Visit Provider Internal Medicine
DX: M81.0 Age-related osteoporosis without current pathological fracture (principal)
CPT/HCPCS: 36415; 80069

== ENCOUNTER → 2022-10-07 08:52 | Outpatient (CLI) | payer MEDICARE, OTHER, SELFPAY ==
[2022-10-07 09:31] LABS: Basophils # 0.1 K/mm3 (0-0.2); Eosinophils # 0.4 K/mm3 (0.0-0.4); Eosinophils % 5.6 % (0.1-12.0); Hematocrit 33.6 % (37.0-47.0); Hemoglobin 10.3 g/dL (12.2-16.2); Lymphocytes # 2.9 K/mm3 (0.7-4.5); Lymphocytes % 36.6 % (10-50); Mean Corpuscular HGB Conc 30.8 g/dL (31.8-35.4); Mean Corpuscular Hemoglobin 26.9 pg (27.0-31.2); Mean Corpuscular Volume 87.5 fl (81-99); Mean Platelet Volume 8.1 fl (7.4-10.4); Monocytes # 0.3 K/mm3 (0.1-1.0); Monocytes % 4.4 % (1.7-9.3); Neutrophils # 4.1 K/mm3 (1.8-7.8); Neutrophils % 52.5 % (37.0-80.0); Platelet Count 361 K/mm3 (142-424); Red Blood Count 3.84 M/mm3 (4.20-5.40); Red Cell Distribution Width 15.8 % (11.5-17.5); White Blood Count 7.8 K/mm3 (4.8-10.8)
[2022-10-07 09:55] LABS: Hemoglobin A1C 5.3 % (4.0-6.0)
[2022-10-07 09:59] LABS: Chloride 95 mmol/L (98-107)
[2022-10-07 10:00] LABS: Potassium 4.6 mmoL/L (3.5-5.1); Sodium 138 mmol/L (136-145)
[2022-10-07 10:02] LABS: Alanine Aminotransferase 22 U/L (12-78); Albumin Level 3.8 g/dl (3.5-5.0); Albumin/Globulin Ratio 1.5 (1.1-1.8); Alkaline Phosphatase 102 U/L (38-126); Aspartate Amino Transferase 36 U/L (14-36); Bilirubin,Total 0.4 mg/dl (0.2-1.3); Blood Urea Nitrogen 23 mg/dl (7-17); Carbon Dioxide 34 mmol/L (22.0-30.0); Estimated Glomerular Filt Rate 71 ml/min (>60); GFR (African American) 86 ML/MIN (>60); Globulin 2.6 g/dL (1.3-3.2); Total Protein,Serum 6.4 g/dl (6.3-8.2)
[2022-10-07 10:03] LABS: Calcium 8.7 mg/dl (8.4-10.2); Chol/HDL Ratio 1.9 (1-3.5); Cholesterol 134 mg/dl (140-200); Glucose 84 mg/dl (74-100); HDL Cholesterol 70 mg/dl (40-60); Triglycerides 93 mg/dl (30-150); Uric Acid 4.4 mg/dl (2.5-6.2); VLDL Cholesterol 19 mg/dL (0-40)
[2022-10-07 10:08] LABS: Anion Gap 13.6 mEq/L (5-15)
[2022-10-07 10:14] LABS: Direct LDL Cholesterol 54.97 mg/dL (100-129)
[2022-10-10 15:44] LABS: Levetiracetam (Keppra) 82.9 ug/mL (10.0-40.0)
== END ==
PROVIDERS: PCP Family Medicine; Visit Provider Family Medicine
DX: G40.909 Epilepsy, unspecified, not intractable, without status epilepticus (principal); D50.9 Iron deficiency anemia, unspecified; I10 Essential (primary) hypertension; E78.5 Hyperlipidemia, unspecified; E79.0 Hyperuricemia without signs of inflammatory arthritis and tophaceous disease
CPT/HCPCS: 36415; 80053; 80061; 80177; 83036; 84550; 85025

== ENCOUNTER → 2022-11-11 14:50 | Outpatient (CLI) | payer MEDICARE, OTHER, SELFPAY ==
[2022-11-11 16:49] LABS: Albumin Level 4.2 g/dl (3.5-5.0); Anion Gap 16.2 mEq/L (5-15); Blood Urea Nitrogen 26 mg/dl (7-17); Carbon Dioxide 31 mmol/L (22.0-30.0); Chloride 96 mmol/L (98-107); Estimated Glomerular Filt Rate 71 ml/min (>60); GFR (African American) 86 ML/MIN (>60); Glucose 114 mg/dl (74-100); Phosphorous 3.8 mg/dl (2.5-4.5); Potassium 4.2 mmoL/L (3.5-5.1); Sodium 139 mmol/L (136-145)
[2022-11-16 16:12] LABS: Osteocalcin 30.9 ng/mL (.)
[2022-11-16 21:19] LABS: C-Telopeptide Serum 785 pg/mL (.)
[2022-11-17 02:53] LABS: Tandem-R Ostase 23.6 ug/L (.)
== END ==
PROVIDERS: PCP Family Medicine; Visit Provider Internal Medicine
DX: M81.0 Age-related osteoporosis without current pathological fracture (principal)
CPT/HCPCS: 36415; 80069; 82523; 83937; 84080

== ENCOUNTER → 2023-01-14 12:50 | Outpatient (CLI) | payer MEDICARE, OTHER, SELFPAY ==
--- NOTE | 2023-01-14 12:57 | XR_ITS ---
FINAL REPORT CLINICAL HISTORY: lt foot pain pain in toes around 3rd and 4th tingles at night FINDINGS: LEFT FOOT Three views of the left foot demonstrate no acute fracture or dislocation. The visualized joint spaces are normally aligned. There are mild and moderate degenerative changes. The soft tissues are unremarkable. IMPRESSION: No acute bony abnormality. Reviewed, Interpreted and Dictated by Jorge Santana III, MD Transcribed by Yvette Haynes Authenticated and [facility]
== END ==
PROVIDERS: PCP Family Medicine; Visit Provider Orthopaedic Surgery
DX: M79.672 Pain in left foot (principal)
CPT/HCPCS: 73630

== ENCOUNTER 2023-01-15 14:37 | Outpatient (RCR) | payer MEDICARE, OTHER, SELFPAY | END 2023-01-15 15:30 | disposition home or self-care (01) | LOC: PT 14:37 | PROVIDERS: Visit Provider Orthopaedic Surgery | DX: M79.672 Pain in left foot (principal); M25.572 Pain in left ankle and joints of left foot | CPT/HCPCS: 97760 ==

== ENCOUNTER → 2023-04-20 09:36 | Outpatient (POV) | payer MEDICARE, OTHER, SELFPAY | PROVIDERS: PCP Family Medicine; Visit Provider Dermatology | DX: Z00.00 Encounter for general adult medical examination without abnormal findings (principal) ==

== ENCOUNTER → 2023-05-10 10:45 | Outpatient (CLI) | payer MEDICARE, OTHER, SELFPAY ==
--- OUTSIDE RECORDS SUMMARY | 2023-05-10 10:49 | XMS_ITS | Summary of Care ---
Author Name Unknown Organization [facility] Address [address] [place] [address]- Encounter 10/02/20 - 10/02/20 [facility] [address] [place] [address] Discharge Disposition: Discharged to Home or Self Care Attending Physician: Lakeshia Veloz DO Admitting Physician: Lakeshia Veloz DO Referring Physician: Devendra Mcadams MD Allergies, Adverse Reactions, Alerts Substance Reaction Severity Status penicillin unknown Active Entocort Confusion Active Clinoril Chest pain Active Reglan Active Sulfacetamide Sodium Unknown Active Medications Allergy Injections Allergy Injections, Misc, Subcutaneous, q2wk, 0 Refill(s) Start Date: 10/02/20 Status: Ordered allopurinol 100 mg oral tablet 100 mg = 1 tab, Oral, Daily, 30 tab, 0 Refill(s) Start Date: 10/02/20 Status: Ordered azelastine 137 mcg/inh (0.1%) nasal spray 2 spray, Nasal, BID, 0 Refill(s) Start Date: 10/02/20 Status: Ordered Benicar 20 mg oral tablet 20 mg, 1 tab, Tab, Oral, Daily, 30 tab, 0 Refill(s) Start Date: 10/02/20 Status: Ordered fluticasone 50 mcg/inh nasal spray 1 spray, [place]-Nasal, Nasal, BID, 16 gm, 0 Refill(s) Start Date: 10/02/20 Status: Ordered gabapentin 100 mg oral capsule 100 mg, 1 cap, Cap, Oral, QID, 120 cap, 0 Refill(s), Takes 2-4 capsules per day as indicated Start Date: 10/02/20 Status: Ordered Keppra XR 500 mg oral tablet, extended release mg tab, Oral, BID, 0 Refill(s) Start Date: 10/02/20 Status: Ordered meloxicam 15 mg oral tablet 15 mg = 1 tab, Tab, Oral, Daily, 30 tab, 0 Refill(s) Start Date: 10/02/20 Status: Ordered Nitro-Bid 2% transdermal ointment Topical BID, Refill(s) 0 Start Date: 10/02/20 Status: Ordered omeprazole 40 mg oral delayed release capsule 40 mg = 1 cap, Cap-DR, Oral, Before breakfast, 0 Refill(s) Start Date: 10/02/20 Status: Ordered Qvar Redihaler 80 mcg/inh inhalation aerosol 160 mcg = 2 puff, Aerosol, INH, BID, 1 EA, 0 Refill(s) Start Date: 10/02/20 Status: Ordered rosuvastatin 10 mg oral tablet 10 mg, 1 tab, Tab, Oral, QHS, 30 tab, 0 Refill(s) Start Date: 10/02/20 Status: Ordered Vagifem 10 mcg vaginal tablet mcg tab, Vaginal, qM,W,F, 0 Refill(s) Start Date
[2023-05-10 11:11] LABS: Basophils % 0.6 % (0.1-2.0); Eosinophils # 0.2 K/mm3 (0.0-0.4); Eosinophils % 2.2 % (0.1-12.0); Hemoglobin 10.7 g/dL (12.2-16.2); Lymphocytes # 2.2 K/mm3 (0.7-4.5); Mean Corpuscular HGB Conc 31.6 g/dL (31.8-35.4); Mean Corpuscular Hemoglobin 29.1 pg (27.0-31.2); Mean Corpuscular Volume 92.1 fl (81-99); Mean Platelet Volume 8.5 fl (7.4-10.4); Monocytes # 0.4 K/mm3 (0.1-1.0); Neutrophils # 4.5 K/mm3 (1.8-7.8); Neutrophils % 62.2 % (37.0-80.0); Platelet Count 345 K/mm3 (142-424); Red Blood Count 3.69 M/mm3 (4.20-5.40); Red Cell Distribution Width 14.9 % (11.5-17.5); White Blood Count 7.2 K/mm3 (4.8-10.8)
[2023-05-10 12:01] LABS: Uric Acid 4.9 mg/dl (2.5-6.2)
[2023-05-10 12:01] LABS: Alanine Aminotransferase 37 U/L (12-78); Albumin Level 3.9 g/dl (3.5-5.0); Albumin/Globulin Ratio 1.4 (1.1-1.8); Alkaline Phosphatase 83 U/L (38-126); Anion Gap 8.9 mEq/L (5-15); Aspartate Amino Transferase 44 U/L (14-36); Bilirubin,Total 0.5 mg/dl (0.2-1.3); Blood Urea Nitrogen 16 mg/dl (7-17); Calcium 8.6 mg/dl (8.4-10.2); Carbon Dioxide 30 mmol/L (22.0-30.0); Chloride 101 mmol/L (98-107); Chol/HDL Ratio 1.9 (1-3.5); Cholesterol 165 mg/dl (140-200); Estimated Glomerular Filt Rate 82 ml/min (>60); GFR (African American) 100 ML/MIN (>60); Globulin 2.7 g/dL (1.3-3.2); Glucose 94 mg/dl (74-100); HDL Cholesterol 85 mg/dl (40-60); Potassium 3.9 mmoL/L (3.5-5.1); Sodium 136 mmol/L (136-145); Total Protein,Serum 6.6 g/dl (6.3-8.2); Triglycerides 88 mg/dl (30-150); VLDL Cholesterol 18 mg/dL (0-40)
[2023-05-10 12:11] LABS: Direct LDL Cholesterol 70.65 mg/dL (100-129)
[2023-05-10 13:37] LABS: Iron 57 ug/dL (37-170)
[2023-05-17 09:15] LABS: Levetiracetam (Keppra) 70.6
== END ==
PROVIDERS: PCP Family Medicine; Visit Provider Nurse Practitioner Family
DX: I10 Essential (primary) hypertension (principal); E78.5 Hyperlipidemia, unspecified; E79.0 Hyperuricemia without signs of inflammatory arthritis and tophaceous disease; D50.9 Iron deficiency anemia, unspecified; G40.909 Epilepsy, unspecified, not intractable, without status epilepticus
CPT/HCPCS: 36415; 80053; 80061; 80177; 83540; 84550; 85025

== ENCOUNTER → 2023-05-14 16:30 | Outpatient (CLI) | payer MEDICARE, OTHER, SELFPAY ==
--- NOTE | 2023-05-14 16:35 | XR_ITS ---
PROCEDURE INFORMATION: Exam: XR Left Foot Exam date and time: 05/14/2023 4:36 PM Age: 72 years old Clinical indication: Pain; Foot; Left; Additional info: Plantar fascitis of lt foot TECHNIQUE: Imaging protocol: Radiologic exam of the left foot. Views: 3 or more views. COMPARISON: CR XR FOOT LT MIN 3V 01/14/2023 12:58 PM FINDINGS: Bones/joints: Degenerative changes in the tarsometatarsal joints and IP joint and tarsal bones. There is no evidence of acute fracture in any of the visualized osseous structures.. There is no evidence of malalignment or dislocation of any visualized joint. Soft tissues: Normal. IMPRESSION: 1. Degenerative changes in the tarsometatarsal joints and IP joint and tarsal bones. 2. There is no evidence of acute fracture in any of the visualized osseous structures.. 3. There is no evidence of malalignment or dislocation of any visualized joint.
== END ==
PROVIDERS: PCP Family Medicine; Visit Provider Physician Assistant
DX: M72.2 Plantar fascial fibromatosis (principal)
CPT/HCPCS: 73630

== ENCOUNTER 2023-05-24 10:48 | Outpatient (CLI) | payer MEDICARE, OTHER, SELFPAY ==
[2023-05-24 11:10] VITALS: BP 144/75; PULSE 71; RESP 18; TEMP 36.7; O2SAT 97
== END 2023-05-24 11:20 | disposition home or self-care (01) ==
LOC: INF 10:49
PROVIDERS: PCP Family Medicine; Visit Provider Internal Medicine
DX: M81.0 Age-related osteoporosis without current pathological fracture (principal)
CPT/HCPCS: 96372; J0897

== ENCOUNTER 2023-08-10 10:01 | Outpatient (CLI) | payer MEDICARE, OTHER, SELFPAY ==
[2023-08-10 10:44] LABS: Basophils # 0.1 K/mm3 (0-0.2); Basophils % 0.7 % (0.1-2.0); Eosinophils # 0.2 K/mm3 (0.0-0.4); Eosinophils % 2.6 % (0.1-12.0); Hematocrit 37.6 % (37.0-47.0); Hemoglobin 11.5 g/dL (12.2-16.2); Lymphocytes # 2.8 K/mm3 (0.7-4.5); Mean Corpuscular HGB Conc 30.7 g/dL (31.8-35.4); Mean Corpuscular Hemoglobin 28.9 pg (27.0-31.2); Mean Platelet Volume 8.1 fl (7.4-10.4); Monocytes # 0.4 K/mm3 (0.1-1.0); Monocytes % 4.8 % (1.7-9.3); Neutrophils # 5.3 K/mm3 (1.8-7.8); Platelet Count 306 K/mm3 (142-424); Red Blood Count 3.99 M/mm3 (4.20-5.40); Red Cell Distribution Width 15.1 % (11.5-17.5); White Blood Count 8.9 K/mm3 (4.8-10.8)
[2023-08-10 11:03] LABS: Alanine Aminotransferase 26 U/L (12-78); Albumin Level 4.3 g/dl (3.5-5.0); Albumin/Globulin Ratio 1.7 (1.1-1.8); Alkaline Phosphatase 78 U/L (38-126); Anion Gap 12.1 mEq/L (5-15); Aspartate Amino Transferase 39 U/L (14-36); Bilirubin,Total 0.7 mg/dl (0.2-1.3); Blood Urea Nitrogen 18 mg/dl (7-17); Calcium 8.6 mg/dl (8.4-10.2); Carbon Dioxide 27 mmol/L (22.0-30.0); Chloride 104 mmol/L (98-107); Estimated Glomerular Filt Rate 82 ml/min (>60); GFR (African American) 100 ML/MIN (>60); Globulin 2.5 g/dL (1.3-3.2); Glucose 109 mg/dl (74-100); Potassium 4.1 mmoL/L (3.5-5.1); Sodium 139 mmol/L (136-145); Total Protein,Serum 6.8 g/dl (6.3-8.2)
[2023-08-10 11:33] LABS: Thyroid Stimulating Hormone 1.85 uIU/mL (0.465-4.68)
[2023-08-10 12:39] LABS: Iron 69 ug/dL (37-170)
== END 2023-08-10 23:59 ==
LOC: LAB 10:02
PROVIDERS: PCP Family Medicine; Visit Provider Family Medicine
DX: I10 Essential (primary) hypertension (principal); D50.8 Other iron deficiency anemias; R60.0 Localized edema; R74.01 Elevation of levels of liver transaminase levels; Z79.899 Other long term (current) drug therapy
CPT/HCPCS: 36415; 80053; 83540; 84443; 85025

== ENCOUNTER 2023-09-13 08:33 | Outpatient (CLI) | payer MEDICARE, OTHER, SELFPAY ==
--- NOTE | 2023-09-13 08:37 | CA_ITS ---
APPROVED REPORT EXAM: Comprehensive 2D, Doppler, and color-flow Echocardiogram Motor Checker: Jennifer Garza RDCS Ht: 5 ft 6 in Wt: 173lbs BSA: 1.88 BP: 128/82 mmHg Indications: EDEMA HTN M-Mode Dimensions RVDd 2.70 cm (0.9-2.6) LA Diam 3.93 cm (1.9-4.0) LVDd 5.14 cm (3.5-5.7) LVDs 3.42 cm (3.5-5.7) IVSd 0.61 cm (0.6-1.1) PWd 0.57 cm (0.6-1.1) EF (Teich) 61.90% FS 33.50% EDV (Teich) 126.10 mL ESV (Teich) 48.10 mL LV Diastology E Decel Time 280 (160-240 msec) E/A Ratio 0.8 Mitral Valve MV E Max Jason. 75.0 (40-130 cm/s) MV A Velocity 89.0 (40-130 cm/s) E/A Ratio 0.84 MV PHT 82.0 ms Left Ventricle The left ventricle is normal size. The left ventricular systolic function is normal. The left ventricular ejection fraction is within the normal range. There is normal left ventricular wall thickness. There is normal LV segmental wall motion. The left ventricular diastolic function is normal. LVEF is 55%. Right Ventricle The right ventricle is normal size. The right ventricular systolic function is normal. Atria The left atrium size is normal. The right atrium size is normal. There is no Doppler evidence of interatrial shunt. Aortic Valve The aortic valve opens well. There is no aortic valvular stenosis. Trace aortic regurgitation. Mitral Valve The mitral valve is normal in structure. Trace mitral regurgitation. Tricuspid Valve The tricuspid valve leaflets are thin and pliable. Trace tricuspid regurgitation. There is insufficient TR jet to estimate RVSP. Pulmonic Valve The pulmonary valve is normal in structure. Trace pulmonic regurgitation. Great Vessels The aortic root is normal in size. The ascending aorta is normal in size. IVC is normal in size and collapses >50% with inspiration. Pericardium There is no pericardial effusion. Other Information Study Quality: Fair Conclusion Normal biventricular systolic function. No significant valvular stenosis or regurgitation. Electronically signed by : Laura Ellis MD 09/15/2023 22:05:16
== END 2023-09-13 23:59 ==
LOC: RT 08:33
PROVIDERS: PCP Family Medicine; Visit Provider Family Medicine
DX: R60.0 Localized edema (principal); I10 Essential (primary) hypertension
CPT/HCPCS: 93306

== ENCOUNTER 2023-12-17 12:34 | Outpatient (CLI) | payer MEDICARE, OTHER, SELFPAY ==
--- NOTE | 2023-12-17 12:40 | XR_ITS ---
FINAL REPORT CLINICAL HISTORY: LEFT FOOT PAIN, fall one month ago, bruising COMPARISON: 05/14/2023 FINDINGS: Left foot Three views were obtained. There is an acute, comminuted fracture involving the distal aspect of the 2nd metatarsal. There is a chronic fracture of the distal 4th metatarsal. Mild degenerative changes and vascular calcification are identified. There is a plantar calcaneal spur. IMPRESSION: Fracture as above. Reviewed, Interpreted and Dictated by Jorge Santana III, MD Transcribed by Kristina Pfeiffer Authenticated and [facility]
== END 2023-12-17 23:59 | disposition home or self-care (01) ==
PROVIDERS: PCP Family Medicine; Visit Provider Family Medicine
DX: M79.672 Pain in left foot (principal)
CPT/HCPCS: 73630

== ENCOUNTER 2024-01-06 16:17 | Outpatient (CLI) | payer MEDICARE, OTHER, SELFPAY ==
[2024-01-10 15:19] LABS: Anion Gap 12.9 mEq/L (5-15); Blood Urea Nitrogen 27 mg/dl (7-17); Calcium 9.1 mg/dl (8.4-10.2); Carbon Dioxide 23 mmol/L (22.0-30.0); Chloride 108 mmol/L (98-107); Estimated Glomerular Filt Rate 54 ml/min (>60); GFR (African American) 66 ML/MIN (>60); Glucose 120 mg/dl (74-100); Phosphorous 4.5 mg/dl (2.5-4.5); Potassium 3.9 mmoL/L (3.5-5.1); Sodium 140 mmol/L (136-145)
== END 2024-01-06 23:59 | disposition home or self-care (01) ==
LOC: LAB 16:20
PROVIDERS: PCP Family Medicine; Visit Provider Internal Medicine
DX: M81.0 Age-related osteoporosis without current pathological fracture (principal)
CPT/HCPCS: 36415; 80069; 80076

== ENCOUNTER 2024-01-26 11:17 | Outpatient (CLI) | payer MEDICARE, OTHER, SELFPAY ==
[2024-01-26 11:40] VITALS: BP 140/68; PULSE 71; RESP 18; TEMP 36.4; O2SAT 99
[2024-01-26] MEDS: DENOSUMAB 60 MG/ML SYRINGE SQ (11:40)
== END 2024-01-26 11:55 | disposition home or self-care (01) ==
LOC: INF 11:18
PROVIDERS: PCP Family Medicine; Visit Provider Internal Medicine
DX: M81.0 Age-related osteoporosis without current pathological fracture (principal)
CPT/HCPCS: 96372; J0897

== ENCOUNTER 2024-02-14 15:13 | Outpatient (CLI) | payer MEDICARE, OTHER, SELFPAY ==
[2024-02-14 16:34] LABS: Albumin Level 3.9 g/dl (3.5-5.0); Anion Gap 8.8 mEq/L (5-15); Blood Urea Nitrogen 22 mg/dl (7-17); Calcium 8.7 mg/dl (8.4-10.2); Carbon Dioxide 27 mmol/L (22.0-30.0); Chloride 110 mmol/L (98-107); Estimated Glomerular Filt Rate 61 ml/min (>60); GFR (African American) 74 ML/MIN (>60); Glucose 124 mg/dl (74-100); Phosphorous 3.8 mg/dl (2.5-4.5); Potassium 4.8 mmoL/L (3.5-5.1); Sodium 141 mmol/L (136-145)
== END 2024-02-14 23:59 | disposition home or self-care (01) ==
LOC: LAB 15:20
PROVIDERS: PCP Family Medicine; Visit Provider Internal Medicine
DX: M81.0 Age-related osteoporosis without current pathological fracture (principal)
CPT/HCPCS: 36415; 80069

== ENCOUNTER 2024-03-14 11:04 | Outpatient (CLI) | payer MEDICARE, OTHER, SELFPAY ==
[2024-03-14 12:00] LABS: Basophils # 0.1 K/mm3 (0-0.2); Basophils % 0.9 % (0.1-2.0); Eosinophils # 0.3 K/mm3 (0.0-0.4); Eosinophils % 3.4 % (0.1-12.0); Hematocrit 34.7 % (37.0-47.0); Hemoglobin 11.2 g/dL (12.2-16.2); Lymphocytes # 2.1 K/mm3 (0.7-4.5); Lymphocytes % 22.3 % (10-50); Mean Corpuscular HGB Conc 32.2 g/dL (31.8-35.4); Mean Corpuscular Hemoglobin 28.7 pg (27.0-31.2); Mean Corpuscular Volume 89.1 fl (81-99); Mean Platelet Volume 7.7 fl (7.4-10.4); Monocytes # 0.4 K/mm3 (0.1-1.0); Monocytes % 4.3 % (1.7-9.3); Neutrophils # 6.5 K/mm3 (1.8-7.8); Platelet Count 319 K/mm3 (142-424); Red Cell Distribution Width 15.4 % (11.5-17.5); White Blood Count 9.5 K/mm3 (4.8-10.8)
[2024-03-14 12:12] LABS: Albumin Level 4.1 g/dl (3.5-5.0); Chloride 103 mmol/L (98-107)
[2024-03-14 12:13] LABS: Potassium 4.6 mmoL/L (3.5-5.1); Sodium 137 mmol/L (136-145)
[2024-03-14 12:15] LABS: Alanine Aminotransferase 26 U/L (12-78); Albumin/Globulin Ratio 1.6 (1.1-1.8); Anion Gap 12.6 mEq/L (5-15); Aspartate Amino Transferase 35 U/L (14-36); Blood Urea Nitrogen 18 mg/dl (7-17); Carbon Dioxide 26 mmol/L (22.0-30.0); Estimated Glomerular Filt Rate 70 ml/min (>60); GFR (African American) 85 ML/MIN (>60); Globulin 2.5 g/dL (1.3-3.2); Total Protein,Serum 6.6 g/dl (6.3-8.2)
[2024-03-14 12:16] LABS: Alkaline Phosphatase 89 U/L (38-126); Bilirubin,Total 0.7 mg/dl (0.2-1.3); Calcium 9.1 mg/dl (8.4-10.2); Chol/HDL Ratio 2.4 (1-3.5); Cholesterol 164 mg/dl (140-200); Glucose 113 mg/dl (74-100); HDL Cholesterol 67 mg/dl (40-60); Iron 69 ug/dL (37-170); Triglycerides 126 mg/dl (30-150); VLDL Cholesterol 25 mg/dL (0-40)
[2024-03-14 12:27] LABS: Direct LDL Cholesterol 58.95 mg/dL (100-129)
[2024-03-14 12:36] LABS: 25-OH Vitamin D, Total 43.6 ng/mL (30-100)
[2024-03-14 12:46] LABS: Hemoglobin A1C 6.2 % (4.0-6.0)
[2024-03-14 13:17] LABS: Uric Acid 4.6 mg/dl (2.5-6.2)
== END 2024-03-14 23:59 | disposition home or self-care (01) ==
LOC: LAB 11:05
PROVIDERS: PCP Family Medicine; Visit Provider Family Medicine
DX: D50.9 Iron deficiency anemia, unspecified (principal); I10 Essential (primary) hypertension; E78.5 Hyperlipidemia, unspecified; E79.0 Hyperuricemia without signs of inflammatory arthritis and tophaceous disease; G40.909 Epilepsy, unspecified, not intractable, without status epilepticus
CPT/HCPCS: 36415; 80053; 80061; 82306; 83036; 83540; 84550; 85025

== ENCOUNTER 2024-04-25 07:49 | Outpatient (CLI) | payer MEDICARE, OTHER, SELFPAY ==
--- NOTE | 2024-04-25 07:51 | CT_ITS ---
FINAL REPORT TECHNIQUE: Thin section axial images were obtained of the sinuses without contrast. Coronal and sagittal reconstructions were obtained and reviewed. This study was performed with techniques to keep radiation doses as low as reasonably achievable, (ALARA). Individualized dose reduction techniques using automated exposure control or adjustment of mA and/or kV according to the patient's size were employed. CLINICAL HISTORY: CHRONIC SINUSITIS COMPARISON: None FINDINGS: The paranasal sinuses are well aerated. The ostiomeatal units are patent. There is no fracture. There are no air-fluid levels. IMPRESSION: Unremarkable. Reviewed, Interpreted and Dictated by Timmy Jay MD Transcribed by Nahomy Vides Authenticated and [facility]
== END 2024-04-25 23:59 | disposition home or self-care (01) ==
LOC: RAD 07:49
PROVIDERS: PCP Family Medicine; Visit Provider Family Medicine
DX: J32.9 Chronic sinusitis, unspecified (principal)
CPT/HCPCS: 70486

== ENCOUNTER 2024-06-19 12:13 | Outpatient (CLI) | payer MEDICARE, OTHER, SELFPAY ==
--- NOTE | 2024-06-19 12:20 | XR_ITS ---
FINAL REPORT CLINICAL HISTORY: Foot Pain COMPARISON: 12/17/2023 FINDINGS: LEFT FOOT Three views of the left foot demonstrate partial interval healing of the 2nd metatarsal fracture with increased displacement from the prior study. There has been further healing of the 4th metatarsal fracture with complete bony union. Generalized osteopenia is noted. Scattered degenerative changes are seen. There is no new fracture identified. The soft tissues are unremarkable. IMPRESSION: Healed 4th metatarsal fracture. Partial healing 2nd metatarsal fracture with increased displacement. Reviewed, Interpreted and Dictated by Tate Ziegler MD Transcribed by Nahomy Vides Authenticated and [facility]
--- NOTE | 2024-06-19 12:20 | XR_ITS ---
FINAL REPORT CLINICAL HISTORY: Foot Pain COMPARISON: None FINDINGS: RIGHT FOOT 3 views of the right foot were obtained. There is no acute fracture or dislocation. There is severe osteopenia. Moderate diffuse degenerative changes are noted. There is calcaneal spurring. Soft tissues are unremarkable. IMPRESSION: No acute findings. Degenerative changes. Reviewed, Interpreted and Dictated by Tate Ziegler MD Transcribed by Nahomy Vides Authenticated and [facility]
== END 2024-06-19 23:59 | disposition home or self-care (01) ==
LOC: RAD 12:16
PROVIDERS: PCP Family Medicine; Visit Provider Podiatrist
DX: M79.671 Pain in right foot (principal); M79.672 Pain in left foot
CPT/HCPCS: 73630

== ENCOUNTER 2024-09-11 10:30 | Outpatient (CLI) | payer MEDICARE, OTHER, SELFPAY ==
[2024-09-11] MEDS: DENOSUMAB 60 MG/ML SYRINGE SUBCUT (10:38)
[2024-09-11 10:39] VITALS: BP 133/80; PULSE 76; RESP 18; O2SAT 98
== END 2024-09-11 10:41 | disposition home or self-care (01) ==
LOC: INF 10:31
PROVIDERS: PCP Family Medicine; Visit Provider Internal Medicine
DX: M81.0 Age-related osteoporosis without current pathological fracture (principal)
CPT/HCPCS: 96372; J0897

== ENCOUNTER 2024-09-28 13:05 | Outpatient (CLI) | payer MEDICARE, OTHER, SELFPAY ==
[2024-09-28 14:29] LABS: Albumin Level 3.9 g/dl (3.5-5.0); Anion Gap 12.3 mEq/L (5-15); Blood Urea Nitrogen 17 mg/dl (7-17); Calcium 8.1 mg/dl (8.4-10.2); Carbon Dioxide 28 mmol/L (22.0-30.0); Chloride 106 mmol/L (98-107); Estimated Glomerular Filt Rate 82 ml/min (>60); GFR (African American) 99 ML/MIN (>60); Glucose 101 mg/dl (74-100); Phosphorous 2.3 mg/dl (2.5-4.5); Potassium 4.3 mmoL/L (3.5-5.1); Sodium 142 mmol/L (136-145)
== END 2024-09-28 23:59 | disposition home or self-care (01) ==
LOC: LAB 13:07
PROVIDERS: PCP Family Medicine; Visit Provider Internal Medicine
DX: M81.0 Age-related osteoporosis without current pathological fracture (principal)
CPT/HCPCS: 36415; 80069

== ENCOUNTER 2024-10-17 12:42 | Outpatient (CLI) | payer MEDICARE, OTHER, SELFPAY ==
[2024-10-17 13:57] LABS: Albumin Level 4.2 g/dl (3.5-5.0); Anion Gap 9.2 mEq/L (5-15); Blood Urea Nitrogen 23 mg/dl (7-17); Calcium 9.2 mg/dl (8.4-10.2); Carbon Dioxide 28 mmol/L (22.0-30.0); Chloride 107 mmol/L (98-107); Estimated Glomerular Filt Rate 61 ml/min (>60); GFR (African American) 74 ML/MIN (>60); Glucose 121 mg/dl (74-100); Phosphorous 3.5 mg/dl (2.5-4.5); Potassium 4.2 mmoL/L (3.5-5.1); Sodium 140 mmol/L (136-145)
== END 2024-10-17 23:59 | disposition home or self-care (01) ==
LOC: LAB 12:43
PROVIDERS: PCP Family Medicine; Visit Provider Internal Medicine
DX: M81.0 Age-related osteoporosis without current pathological fracture (principal)
CPT/HCPCS: 36415; 80069

== ENCOUNTER 2024-10-31 12:49 | Outpatient (CLI) | payer MEDICARE, OTHER, SELFPAY ==
--- NOTE | 2024-10-31 | US_ITS ---
FINAL REPORT CLINICAL HISTORY: never smoked, HTN, hyperlipidemia, bilateral claudication COMPARISON: None FINDINGS: ANKLE-BRACHIAL PRESSURE INDICES Pressure indices are as follows: RIGHT LOWER EXTREMITY: Ankle-brachial pressure index: 1.33 Comments: Normal LEFT LOWER EXTREMITY: Ankle-brachial pressure index: Noncompressible, may be related to underlying vascular calcification. Comments: Normal IMPRESSION: Normal MARIE in the right. Left is noncompressible which may be related to underlying vascular calcification. No definite evidence of underlying arterial occlusive disease. Reviewed, Interpreted and Dictated by Timmy Jay MD Transcribed by Nahomy Vides Authenticated and [facility]
--- NOTE | 2024-10-31 13:00 | MR_ITS ---
FINAL REPORT CLINICAL HISTORY: eval 2nd met fx healing, plantar plate injury, drop in foot since 2017. entire foot pain. foot pain when walking FINDINGS: Multiplanar MR imaging of the left foot was performed without contrast. There is a healed fracture of the distal second metatarsal best seen on the sagittal images. There is slight deformity but no edema is identified. There is mild edema about the ankle. There is degenerative cyst formation in the anterior/inferior medial cuneiform. There are mild hypertrophic changes of the first tarsometatarsal joint. Couple of small degenerative cysts are seen along the articular surface of the distal tibia. IMPRESSION: Hypertrophic changes of osteoarthritis at the tarsal metatarsal joints, particularly the first tarsometatarsal joint. Healed fracture deformity of the distal second metatarsal. Degenerative cyst formation of the distal tibia. Reviewed, Interpreted and Dictated by Timmy Jay MD Transcribed by Kristina Pfeiffer Authenticated and [facility]
== END 2024-10-31 23:59 | disposition home or self-care (01) ==
PROVIDERS: PCP Family Medicine; Visit Provider Podiatrist
DX: S92.322P Displaced fracture of second metatarsal bone, left foot, subsequent encounter for fracture with malunion (principal); M85.662 Other cyst of bone, left lower leg; M19.072 Primary osteoarthritis, left ankle and foot; S92.34 Fracture of fourth metatarsal bone; R09.89 Other specified symptoms and signs involving the circulatory and respiratory systems; R53.1 Weakness
CPT/HCPCS: 73718; 93923

== ENCOUNTER 2024-12-05 09:59 | Outpatient (CLI) | payer MEDICARE, OTHER, SELFPAY ==
--- OUTSIDE RECORDS SUMMARY | 2024-11-01 13:40 | XMS_ITS | Encounter Summary ---
Author Organization [facility] Address [address] [place] [address] Care Team Providers Care Magazine Grinder Loader Name Role Phone Gary Roberts MD Primary Care Provider [phone] Reason for Visit * Reason Comments Shoulder Pain Left foot Hip Pain * Consultation (Routine) - Closed Specialty Diagnoses / Procedures Referred By Contact Referred To Contact Physical Medicine and Rehabilitation Diagnoses Trochanteric bursitis, left hip Fortino Anne, ALLISON [address] [place] [address] Phone: tel:[phone] fax:[phone] [facility] [address] [place] [address] Phone: tel: fax: Referral ID Status Reason Start Date Expiration Date V isits Requested Visits Authorized [id number] Closed Specialty Services Required 06/21/2024 12/21/2025 1 1 Encounter Details Date Type Department Care Team (Late st Contact Info) Description 11/01/2024 1:40 PM EDT Office Visit [facility] [address] [place] [address] Jace Valero, DO [address] [place] [address] Trochanteric bursitis, left hip (Primary Dx); Altered gait; History of foot fracture Social History Tobacco Use Types Packs/Day Years Used Date Smoking Tobacco: Never Passive Smoke Exposure: Never Smokeless Tobacco: Never Tobacco Cessation:Counseling Given: Not Answered 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. Alcohol Use Standard Drinks/Week Comments Yes 2 (1 standard drink = 0.6 oz pur e alcohol) social PHQ-2 Answer Date Recorded Patient Health Questionnaire-2 Score 0 11/01/2024 PHQ-9 Answer Date Recorded Patient Health Questionnaire-9 Score 0 11/01/2024 CAGE ASSESSMENT Answer Date Recorded Cage unable to access Not on file 07/23/2022 Cage max number of drinks Not on file 2022 Cage Beverages a week Not on file 07/23/2022 Have you ever felt you should CUT down on your d rinking? 0 07/23/2022 Have you been ANNOYED by people criticizing your drinking? 0 07/23/2022 Have you felt GUILTY about your drinking? 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 0 07/23/2022 CAGE Questionnaire Score 0 023 Comments No Sex and Gender Information Value Date Recorded Sex Assigned at Female 05/15/2021 3:09 PM EST Legal Sex Female 8:10 PM EDT Gender Identity Female 05/15/2021 3:09 PM EST Sexual Orientation Straight 05/15/2021 3: 09 PM EST documented as of this encounter Last Filed Vital Signs Vital Sign Reading Time Taken Comments Blood Pressure 121/75 11/01/2024 1:30 PM EDT Pulse 70 11/01/2024 1:30 PM EDT Temperature - - Respiratory Rate 16 11/01/2024 1:30 PM EDT Oxygen Saturation 96% 11/01/2024 1:30 PM EDT Inhaled Oxygen Concentration - - Weight 88.9 kg (196 lb) 11/01/2024 1:30 PM EDT Height - - Body Mass Index 35.85 09/14/2024 10:44 AM EDT documented in this encounter Functional Status * Over the past 2 weeks, how often have you been bothered by any of the following problems? Question Answer Date of Assessment Author Little interest or pleasure in doing things Not at all 11/01/2024 1:34 PM Alyssa López RN Feeling down, depressed, or hopeless Not at all 11/01/2024 1:34 PM Alyssa López RN Patient Health Questionnaire -2 Score 0 11/01/2024 1:34 PM Alyssa López RN * Question Answer Date of Assessment Author Trouble falling or staying asleep, or sleeping too much Not at all 11/01/2024 1:34 PM Ayla López RN Feeling tired or having simon le energy Not at all 11/01/2024 1:34 PM Alyssa López RN Poor appetite or overeating Not at all 11/01/2024 1: 34 PM Alyssa López RN Feeling bad about yourself - or that you are a failure or have let yourself or your family down Not at all 11/01/2024 1:34 PM Alyssa López RN Trouble concentrating on things, such as reading the newspaper or watching television Not at all 11/01/2024 1:34 PM Alyssa López RN Moving or speaking so slowly that other people could have noticed? Or the opposite - being so fidgety or restless that you have been moving around a lot more than usual. Not at all 11/01/2024 1:34 PM Alyssa López RN Thoughts that you would be better off or hurting yourself in some way Not at all 11/01/2024 1:34 PM Alyssa López RN Patient Health Questionnaire -9 Score 0 11/01/2024 1:34 PM Alyssa López RN * If you checked off any problems on this questionnaire so far, Question Answer Date of Assessment Author How difficult have these problems made it for you to do your work, take care of things at home, or get along with other people? Not difficult at all 11/01/2024 1:34 PM Alyssa López RN documented as of this encounter Miscellaneous Notes * Progress Notes - Jace Valero DO - 11/01/2024 1:40 PM EDT Dear ALLISON Gore Thank you for you request for consultation. The reason(s) for this visit is/are M70.62 (ICD-10-CM) - Trochanteric bursitis, left hip Chief Complaint: Back pain Is this visit related to: Worker's Compensation Case No Motor Vehicle Accident No HPI Onset: 2017 - has had ongoing left hip pain, ADINA done in 2018. Location: Lower back/buttock Duration: Staying the same Character: Aching, burning Radiation: Left thigh/foot Timing: Daily, constant Associated Factors: History of left ADINA, bilateral TKA, and T6-T12 and L4-pelvic spinal fusions. Recent left foot fracture (November 2023) and is nonhealing, is working with podiatry and attending therapy for this currently. Admits to intermittent drop foot on the left side. Exacerbating Factors: Being on her feet, extended walking Alleviating Factors: Sitting, laying down Severity: On average pain level 7/10 and at worst pain level 9/10. Red flags: Negative for changes in bowel or bladder function, saddle anesthesia, night sweats, nighttime fever chills, and no unintentional weight loss greater than 20 lb in the last 6 months. Prior Treatment Have You Tried Any Benefit Comments Rest Yes Yes Ice Yes Yes Heat Yes Yes Topical Medications: Voltaren gel, Lidocaine, Aspercream, BenGay, Icy Hot, etc Yes Yes Diclofenac gel/Voltaren and Biofreeze NSAIDs Ibuprofen, Advil, Naproxen, Aleve, Meloxicam, Diclofenac, Celebrex Yes Yes Meloxicam/Mobic - off now with renal issues Tylenol No Muscle Relaxants No Manual Medicine No Other Treatments: Denies Physical Therapy: Patient has completed PT for this concern - Fall 2022; has restarted PT recently for the foot/gait changes at [facility] Injection Therapies: Left GTB CSI 06/2024 - continued benefit Pertinent Imaging: Pelvic xrays 06/21/24 Review of Systems 14 point ROS negative other than mentioned above in HPI. Medical Histories Past Medical: Medical History[1] Past Surgical: Surgical History[2] Allergies: Allergies[3] Family History: Family History[4] Family history reviewed with patient and not pertinent. Social History: Patient lives in [place], [place]. Lives in a(n) house with 2 stairs to enter and [facility] Patient is and lives at home with spouse. 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 Psych: Alert and oriented. Mood and affect normal. Eyes: PERRLA and EOMI. HEENT: Supple, no JVD. Trachea midline Respiratory: nonlabored breathing and normal rate Cardiovascular: no edema and no clubbing Skin: warm, dry and intact. No rashes on exposed skin. Neuro: Speech fluent. Follows commands. MSK: Utilizing cane on right side, mildly antalgic gait. Mild TTP along left GTB with no palpable warmth, reproducing pain. No significant TTP over left SIJ or piriformis muscle. Motor Exam: Lower Extremity Motor Strength Right Left L2: Hip flexion (Iliopsoas) 5/5 5/5 L3: Knee extension (Quads) 5/5 5/5 L4: Ankle DF (TA) 5/5 5/5 L5: Great Toe DF (EHL) 5/5 5/5 S1: Ankle PF (Gastroc and Soleus) Foot Eversion (Peroneal longus/brevis) 5/5 5/5 S2: Great Toe flexion (FHL) Knee flexion 5/5 5/5 Neuro Exam: Sensation Right Left L2: Proximal anterior thigh Normal Normal L3: Mid anterior thigh Normal Normal L4: Medial leg/foot, great toe (Saphenous n.) Normal Normal L5: Dorsum of mid foot Normal Normal S1: Lateral leg/foot, little toe, Back of leg (Sural n.) Normal Normal Results/Data: Referral documentation and associated imaging reviewed today in office. XRAY === 08/08/24 === XR THORACIC SPINE 2 VIEWS - Narrative - CLINICAL INDICATION: pain TECHNIQUE: XR THORACIC SPINE 2 VIEWS COMPARISON: June 22, 2024 FINDINGS: 2 views of the thoracic spine show posterior fusion from T6 into the lumbar spine. Ankylosis of [id number] disc space with thickening of the left paraspinal stripe, unchanged. Moderate degenerative disc changes at C3-C4 through C6-C7 with minimal anterior subluxation at C4-C5. No fracture or bone destruction. Hypoinflated lungs with expected bibasilar atelectasis. Chain sutures in the left upperabdomen. - Impression - 1. Posterior fusion from T6 into the lumbar spine with unchanged ankylosis of the T10-T11 disc space. No hardware complication or acute osseous abnormality. 2. Moderate degenerative disc changes at C3-C4 through C6-C7 with minimal anterior subluxation at C4-C5. CRITICAL RESULT: No. COMMUNICATION: Per this written report. Drafted by Dilan Kirk MD on 08/08/2024 1:59 PM Final report signed by Dilan Kirk MD on 08/08/2024 2:05 PM MRI === 01/15/22 === MR THORACIC SPINE WO IV CONTRAST - Narrative - [facility] - Phone Outpatient NAME: Fani Mondragon DATE OF EXAM: 01/15/2022 Patient No: [id number] Physician: Yuko Date of : 1950 Past Medical/Surgical History (entered by technologist): Symptoms/Reason For Exam (entered by technologist): Spinal fusion, thoracic, follow up Tech Notes (entered by technologist): no contrast Additional History (per [facility]): Exam: MRI thoracic spine without contrast Indication: Spinal fusion, follow-up Comparison: Correlation made with CT thoracic spine performed concurrently. Technique: Noncontrast MRI of the thoracic spine was obtained. FINDINGS: Alignment is normal. There are findings related to prior posterior fusion at T11, T12, L1. Vertebral body heights are maintained. Loss of disc height at T10-11. Suggestion of mild T2 hyperintensity in the thoracic spinal cord at the level of T10-11. Prevertebral structures are unremarkable. Significant findings by level: T1-2: No significant spinal canal or neural foraminal stenosis. T2-3: No significant spinal canal or neural foraminal stenosis. T3-4: No significant spinal canal or neural foraminal stenosis. T4-5: Mild disc bulging and facet degenerative changes. Mild right neural foraminal stenosis without significant left neural foraminal stenosis.No significant spinal canal stenosis. T5-6: Facet degenerative changes with a T2 hypointense focus in the right lateral epidural space possibly a proteinaceous synovial cyst or a large osteophyte measuring approximately 6 mm. Mild spinalcanal stenosis (AP diameter 8 mm). No significant neural foraminal stenosis. T6-7: Mild disc bulging with a right central disc protrusion mildly indenting the right ventral aspect of the spinal cord. No significant spinal canal or neural foraminal stenosis. T7-8: Right central disc protrusion. No significant spinal canal or neural foraminal stenosis. T8-9: Mild disc bulging and facet degenerative changes. Thickening of the ligamentum flavum. Mild spinal canal stenosis (AP diameter 9 mm) without significant neural foraminal stenosis. T9-10: Mild disc bulging and facet degenerative changes. Thickening of the ligamentum flavum. Mild spinal canal stenosis (AP diameter 8 mm). No significant neural foraminal stenosis. T10-11: Disc bulging, facet degenerative changes with thickening of the ligamentum flavum. Severe spinal canal stenosis (AP diameter 5 mm). Moderate neural foraminal stenosis bilaterally. T11-12: Prior fusion. No significant spinal canal or neural foraminal stenosis. - Impression - Prior fusion at T11-L1. Degenerative changes most pronounced at T10-11 where there is severe spinal canal stenosis and mildT2 hyperintensity in the spinal cord. No definite evidence of cord expansion. This may be related to myelomalacia. Report sent at 9 AM Eastern time 01/16/2022 Jared Cabrera M.D. This report has been electronically signed and verified by the Radiologist whose name is printed above. / This report contains privileged and confidential information and is intended solely for the use of the individual or entity to which it is addressed. If you are not the intended recipient of this report, you are hereby notified that any copying, distribution, dissemination or action taken in relation to the contents of this report is strictly prohibited and may be unlawful. If you have received this report in error, please notify the sender immediately at [phone] and permanently delete theoriginal report and destroy any copies or printouts. Assessment: Fani Mondragon is a 73 y.o. 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 As she is working with PT and podiatry at this time with potential future surgery, discussed options of OMT to help with compensatory tissue mechanics with gait change and/or evaluation for PNS/Iovera options for any return of GTB pain for avoidance of repeat steroids with osteopenia history and poor healing of current fracture. Patient would like to pursue current plan for podiatry for the foot and reach out on an as needed basis here. Patient to RTC as needed Thank you very much for allowing me to participate in the care of this patient. If you have any questions, please do not hesitate to contact me. Time spent caring for the patient on today's visit including review of patient chart prior to entering the patient care room, [id number] time with the patient for complaints, history and examination, discussing care options, discussing discharge planning, preparing medication prescriptions and planning next follow-up was 52 minutes total by me. [1] Past Medical History: Diagnosis Date Anemia Most of my life Asthma Cataract Removed in 2018 & 2019 Chronic pain disorder over 20 years ago Depression 2011 GERD (gastroesophageal reflux disease) approx 1990 Gout 04/2021 Headache 1969 Hypertension 10 + years ago Joint pain 1989 Leg pain 2011 Low back pain 2011 Lumbosacral disc disease 2010 Neck pain 11/05/2021 Neuropathic pain 06/07/2002 Obesity Adult life CHER on CPAP uses cpap. Osteoarthritis 2009 Peripheral neuropathy 06/07/1999 Seizures (CMS/HCC) 1977 Spinal stenosis 2010 TMJ dysfunction 1994 [2] Past Surgical History: Procedure Laterality Date BACK SURGERY N/A Back Surgery from [facility] CHOLECYSTECTOMY 01/24/2010 EYE SURGERY Jan 2019 & December 2019 GALLBLADDER SURGERY N/A Gallbladder Surgery from [facility] HERNIA REPAIR HIP SURGERY 04/12/2018 HYSTERECTOMY N/A Hysterectomy from [facility] JOINT REPLACEMENT 03/17/2013; 11/15/2013; 04/12/2018 KNEE SURGERY 03/17/2013; 11/15/2013 LAMINECTOMY 07/03/14 ORTHOPEDIC SURGERY 07/03/2014 SLEEVE GASTROPLASTY N/A Gastrectomy Sleeve from [facility] SPINAL CORD STIMULATOR IMPLANT 04/05/2019 SPINAL FUSION 07/03/2014 SPINE SURGERY 04/04/2019 TONSILLECTOMY N/A Tonsillectomy from [facility] TRIGGER POINT INJECTION WRIST SURGERY 10+ years ago [3] Allergies Allergen Reactions Amlodipine Swelling Budesonide Hallucinations, Other - please document in the comment field and Unknown - Patient states they do not know rxn details chest pain Corticosteroids Metoclopramide Anxiety, Other - please document in the comment field, Unknown - Patient states theydo not know rxn details and Hives vertigo Reglan Karthik Inhibitors Cough Amoxicillin Unknown - Patient states they do not know rxn details and Other - please document in the comment field Pt cant remember, reaction was when she was 20 yrs old Penicillins Patient has tolerated cefuroxime (2nd gen cephalosporin) as outpatient amoxicillin trihydrate Cefdinir Headache Nabumetone Headache Prolia [Denosumab] Rash Noticed red blotchy spots on legs following administration. No systemic symptoms including SOA reported. Sulfa Drugs Unknown - Patient states they do not know rxn details and Other - please document in the comment field took a long time ago, doesnt remember but knows it made her feel bad Substance with sulfonamide structure and antibacterial mechanism of action (substance) Sulindac Unknown - Patient states they do not know rxn details, Other - please document in the comment field and Rash Pt doesnt remember, she does tolerate Mobic, which she takes daily, and IBU just fine sulindac Wound Dressing Adhesive Rash * request cloth tape only* [4] Family History Problem Relation Name Age of Onset Cancer Mother Maria Teresa Mccarthy Mendoza Diabetes Mother Maria Teresa Mccarthy Mendoza Stroke Mother Maria Teresa Mccarthy Mendoza Vision loss Mother Maria Teresa Mendoza Cancer Brother Marco Reynolds Mendoza Arthritis Brother Marco Reynolds Mendoaz Rheumatologic disease Maternal Grandmother Deysi Jones Mendoza Stroke Maternal Grandmother Deysi Jones Mendoza Rheumatologic disease Father's Sister Yessi Mendoza Molony Osteoporosis Father's Sister Yessi Mendoza Molony Kidney disease Father's Sister Yessi Mendoza Molony Arthritis Father's Sister Yessi Mendoza Molony Arthritis Other Diabetes Other Hypertension Other Other cancer Other Heart Problem Other Arthritis Father Broderick Mendoza Heart disease Father Broderick Mendoza Stroke Paternal Grandfather Hira Moncada Mendoza Arthritis Paternal Grandmother Deysi Jones Mendoza Rheumatologic disease Paternal Grandmother Deysi Jones Mendoza Arthritis Sister Zena Mendoza Colin Arthritis Father's Brother Luis Mendoza Arthritis Father's Brother Gold Mendoza Malig Hyperthermia Neg Hx Anesthesia problems Neg Hx [5] Current Outpatient Medications: acetaminophen (Tylenol) 500 MG tablet, Take 2 tablets (1,000 mg total) by mouth every 6 (six) hoursif needed for pain., Disp: 40 tablet, Rfl: 0 albuterol 108 (90 Base) MCG/ACT inhaler, INHALE TWO PUFFS BY MOUTH EVERY 4 TO 6 HOURS FOR SHORTNESSOF BREATH, WHEEZING, CHEST TIGHTNESS, OR COUGHING, Disp: , Rfl: allopurinol (Zyloprim) 300 MG tablet, 1 (one) time each day., Disp: , Rfl: aspirin 81 MG EC tablet, Take 1 tablet by mouth Daily., Disp: , Rfl: azelastine (Astelin) 0.1 % nasal spray, INSTILL 2 SPRAYS IN EACH NOSTRIL TWICE DAILY, Disp: , Rfl: calcitriol (Rocaltrol) 0.25 MCG capsule, Take 1 capsule by mouth daily., Disp: 30 capsule, Rfl: 5 Japfzci-Kzilqgfor-Xhkjnfu D (CALCIUM 1200+D3 PO), Take 1 tablet by mouth 1 (one) time each day., Disp: , Rfl: cetirizine (ZyrTEC) 10 MG tablet, Take 1 tablet (10 mg) by mouth daily., Disp: , Rfl: denosumab (Prolia) 60 MG/ML injection, Inject 1 mL (60 mg) under the skin 1 (one) time., Disp: , Rfl: estradiol (Vagifem) 10 MCG tablet vaginal tablet, 3 times a week, Disp: , Rfl: ferrous sulfate 325 (65 Fe) MG tablet, Take 1 tablet (325 mg) by mouth daily with breakfast., Disp:, Rfl: fluticasone (Flonase) 50 MCG/ACT nasal spray, , Disp: , Rfl: fluticasone (Flovent) 110 MCG/ACT inhaler, , Disp: , Rfl: furosemide (Lasix) 20 MG tablet, Take 1 tablet (20 mg) by mouth daily as needed., Disp: , Rfl: gabapentin (Neurontin) 100 MG capsule, 4 (four) times a day., Disp: , Rfl: Keppra XR 500 MG 24 hr tablet, TAKE ONE TABLET BY MOUTH IN THE MORNING & TAKE 4 TABLETS BY MOUTH AT BEDTIME DAILY DIRECTED, Disp: , Rfl: montelukast (Singulair) 10 MG tablet, Take 1 tablet (10 mg) by mouth nightly., Disp: , Rfl: Multiple Vitamin (multivitamin) tablet, Take 1 tablet by mouth daily., Disp: , Rfl: olmesartan (BENIcar) 20 MG tablet, , Disp: , Rfl: olopatadine (Patanol) 0.1 % ophthalmic solution, every 12 (twelve) hours., Disp: , Rfl: OLOPATADINE HCL OP, , Disp: , Rfl: omega-3 (Fish Oil) 1200 MG capsule, 1 (one) time each day at the same time., Disp: , Rfl: omeprazole (PriLOSEC) [address] capsule, Take 1 capsule by mouth daily., Disp: , Rfl: pancrelipase, Vxz-Beka-Ptiu, (Zenpep) 92861-54299 units capsule delayed-release particles capsule, 3 (three) times a day with meals., Disp: , Rfl: psyllium (Konsyl Daily Fiber) 100 % packet, Take 1 packet by mouth daily., Disp: , Rfl: rosuvastatin (Crestor) 10 MG tablet, Take 1 tablet (10 mg) by mouth daily., Disp: , Rfl: Xiidra 5 % solution, instill 1 drop IN EACH EYE EVERY TWELVE HOURS, Disp: , Rfl: documented in this encounter Plan of Treatment Upcoming Encounters Date Type Department Care Team (Late st Contact Info) Description 03/28/2025 11:00 AM EDT Evaluation [facility] [address], [address] [place] [address] Chapo Santoro, PharmD [address] [place] [address] 03/29/2025 10:40 AM EDT Office Visit [facility] [address], [address] [place] [address] Edinson Reyes MD [address] [place] [id number] documented as of this encounter Visit Diagnoses Diagnosis Trochanteric bursitis, left hip- Primary Altered gait Abnormality of gait History of foot fracture documented in this encounter Additional Health Concerns Assessment Noted Time PHQ-9 Depression Total Score: 0 11/02/19 25 1:34 PM EDT A fall risk assessment has been complete d for the patient 11/01/2024 1:34 PM EDT A Body Mass Index follow-up plan has been documented for the patient 11/01/2024 2:36 PM EDT documented as of this encounter Care Teams Magazine Grinder Loader Relationship Specialty Start Date End Date Gary Roberts MD [address] [place] [address] PCP - General 10/18/20 documented as of this encounter
--- OUTSIDE RECORDS SUMMARY | 2024-12-05 10:03 | XMS_ITS | Encounter Summary ---
Author Organization [facility] Address [address] [place] [address] Care Team Providers Care Steward/Stewardess Dining Room Name Role Phone Gary Roberts MD Primary Care Provider +1- [phone] Encounter Details Date Type Department Care Team (Latest Contact Info) Description 11/01/2024 Travel Social History Tobacco Use Types Packs/Day Years Used Date Smoking Tobacco: Never Passive Smoke Exposure: Never Smokeless Tobacco: Never Comments:Never Used but work ed in tobacco abdul and ata. Alcohol Use [...] drink first t figueroa in the morning (EYE-AWNING FRAME MAKER) to steady your nerves or to get rid of a hangover? 0 07/23/2022 CAGE Questionnaire Score 0 023 Comments No Sex and Gender Information Value Date Recorded Sex Assigned at Female 05/15/2021 3:09 PM EST Legal Sex Female 8:10 PM EDT Gender Identity Female 05/15/2021 3:09 PM EST Sexual Orientation Straight 05/15/2021 3: 09 PM EST documented as of this encounter Functional Status * Over the [...] Not difficult at all 11/01/2024 1:34 PM EDT Alyssa Talbert, RN documented as of this encounter Plan of Treatment Upcoming Encounters Date Type Department Care Team (Late st Contact Info) Description 03/28/2025 11:00 AM EDT Evaluation [facility] Bone & Mineral Metabolism [address] [facility], [address] [place] [address] Chapo Santoro, PharmD [address] [facility] [address] [place] [address] 03/29/2025 10:40 AM EDT Office Visit [facility] Nephrology, Bone & Mineral Metabolism [address], [address] [place] [address] Edinson Reyes MD [address] [place] [address] documented as of this encounter Visit Diagnoses Not on filedocumented in this encounter Additional Health Concerns Assessment Noted Time PHQ-9 Depression Total Score: 0 11/02/19 25 1:34 PM EDT A fall risk assessment has been complete d for the patient 11/01/2024 1:34 PM EDT A Body Mass Index follow-up plan has been documented for the patient 11/01/2024 2:36 PM EDT documented as of this encounter Care Teams Steward/Stewardess Dining Room Relationship Specialty Start Date End Date Gary Roberts MD [address] [place] [address] PCP - General 10/18/20 documented as of this encounter
--- OUTSIDE RECORDS SUMMARY | 2024-12-05 10:03 | XMS_ITS | Encounter Summary ---
Author Organization [facility] Address [address] [place] [address] Care Team Providers Care Song Writer Name Role Phone Gary Roberts MD Primary Care Provider +1- [phone] Encounter Details Date Type Department Care Team ([facility] st Contact Info) Description 10/02/2024 Telephone [facility] Bone & Mineral Metabolism [address] [facility], [address] [place] [address] Chapo Santoro, PharmD [address] [place] [address] Social History Tobacco Use Types Packs/Day Years Used Date Smoking Tobacco: Never Passive Smoke Exposure: Never Smokeless Tobacco: Never Comments:Never Used but work ed in tobacco abdul and ata. Alcohol Use Standard Drinks/Week Comments Yes 2 (1 standard drink = 0.6 oz pur e alcohol) social PHQ-2 Answer Date Recorded Patient Health Questionnaire-2 Score 0 08/25/2024 CAGE ASSESSMENT Answer Date Recorded Cage unable [...] drink first t figueroa in the morning (EYE-WASH MILL OPERATOR) to steady your nerves or to get rid of a hangover? 0 07/23/2022 CAGE Questionnaire Score 0 023 Comments No Sex and Gender Information Value Date Recorded Sex Assigned at Female 05/15/2021 3:09 PM EST Legal Sex Female 8:10 PM EDT Gender Identity Female 05/15/2021 3:09 PM EST Sexual Orientation Straight 05/15/2021 3: 09 PM EST documented as of this encounter Miscellaneous Notes * Clinician Note - Chapo Santoro PharmD - 10/19/2024 11:05 AM EDT External Labs: 10/17/24 Cr 0.90 Ca 9.2 Alb 4.2 Repeat labs return and show calcium has returned to WNL. Called and discussed with patient. She confirms adherence to new calcium supplement. No further intervention required at this time. Will recheck labs with next follow up. Patient expressed understanding of plan outlined above, encouraged to call clinic with any questions or concerns. Adriano ParraD, BCACP Clinical Pharmacist Nephrology, [facility] Clinic [address] [place] [address] * Clinician Note - Chapo Santoro, PharmD - 10/02/2024 12:59 PM EDT Evaluated BMP drawn following recent Prolia (denosumab) injection on 09/11/24. Values of interest returned as follow: Creatinine, Plasma (mg/dL) Date Value 09/14/2024 0.93 08/25/2024 1.00 eGFRcr (mL/min/1.73m*2) Date Value 09/14/2024 65.0 08/25/2024 59.6 Ionized Calcium, Whole Blood (mg/dL) Date Value 07/22/2022 5.4 (H) 07/22/2022 4.4 (L) Total Calcium, Plasma (mg/dL) Date Value 09/14/2024 9.0 08/25/2024 9.6 Albumin, Plasma (g/dL) Date Value 09/14/2024 4.2 08/25/2024 4.3 External Labs: 09/28/24 Cr 0.70 Ca 8.1 (8.4-10.2) Alb 3.9 Assessment/Plan: Calcium is low at 8.1. Patient confirms adherence to calcitriol 0.25mcg once daily that was startedby Dr. Barrientos at last visit. She does report stopping OTC calcium + vitamin D supplement once startingcalcitriol. She is going to restart at previous dose and ensure she is getting at least 600mg of calcium. Will repeat labs in ~2 weeks. Will fax lab orders to [facility]. Patient expressed understanding of plan outlined above, encouraged to call clinic with any questions or concerns. Chapo Santoro, AdrianoD, BCACP Clinical Pharmacist Nephrology, [facility] Clinic [address] [phone] documented in this encounter Plan of Treatment Upcoming Encounters Date Type Department Care Team (Late st Contact Info) Description 03/28/2025 11:00 AM EDT Evaluation [facility] Bone & Mineral Metabolism [address] [facility], [address] [place] [address] Chapo Santoro, PharmD [address] [facility] [address] [place] [address] 03/29/2025 10:40 AM EDT Office Visit [facility] Nephrology, Bone & Mineral Metabolism [address] [facility], [address] [place] [address] Edinson Reyes MD [address] [place] [phone] Scheduled Orders Name Type Priority Associated Diagnoses Orde r Schedule Renal function panel Lab Routine Age-related osteoporosis without current pathological fracture Expected: 10/16/2024 (Approximate), Expires: 04/03/2026 documented as of this encounter Visit Diagnoses Diagnosis Age-related osteoporosis without current pathological fracture- Primary documented in this encounter Additional Health Concerns Assessment Noted Time A fall risk assessment has been complete d for the patient 09/14/2024 10:57 AM EDT A Body Mass Index follow-up plan has been documented for the patient 09/14/2024 3:04 PM EDT documented as of this encounter Care Teams Song Writer Relationship Specialty Start Date End Date Gary Roberts MD [address] [place] [address] PCP - General 10/18/20 documented as of this encounter
--- OUTSIDE RECORDS SUMMARY | 2024-12-05 10:03 | XMS_ITS | Encounter Summary ---
Author Organization [facility] Address [address] [place] [address] Care Team Providers Care Presidential Helicopter Crew Chief Name Role Phone Gary Roberts MD Primary Care Provider +1- [phone] Reason for Visit * Reason Onset Date Comments Prolia 09/15/2024 Encounter Details Date Type Department Care Team (Late st Contact Info) Description 09/15/2024 Telephone [facility] [address] [facility] [address] [place] [address] Race, Hermila Rooney CNA [facility] Prolia Social History Tobacco Use Types Packs/Day Years [...] drink first t figueroa in the morning (EYE-WEIGHT LOSS PHYSICIAN) to steady your nerves or to get [...] as of this encounter Miscellaneous Notes * Telephone Encounter - Sheyla Kaye LPN - 09/18/2024 11:35 AM EDT Patient will have post Prolia labs week of 09/25/24 and will fax order to [facility]. P * Telephone Encounter - Sheyla Kaye LPN - 09/18/2024 10:55 AM EDT Called patient to coordinate post Prolia labs. Left voicemail to return call to the clinic. documented in this encounter Plan of Treatment Upcoming Encounters Date Type Department Care Team (Late st Contact Info) Description 03/28/2025 11:00 AM EDT Evaluation [facility] Bone & Mineral Metabolism [address] [facility], [address] [place] [address] Chapo Santoro, PharmD [address] [place] [facility] [address] [place] [address] 03/29/2025 10:40 AM EDT Office Visit [facility] Nephrology, Bone & Mineral Metabolism [address] [place] [facility], [address] [place] [address] Edinson Reyes MD [address] [place] [phone] documented as of this encounter Visit Diagnoses Not on filedocumented in this encounter Additional Health Concerns Assessment Noted Time A fall risk assessment has been complete d for the patient 09/14/2024 10:57 AM EDT A Body Mass Index follow-up plan has been documented for the patient 09/14/2024 3:04 PM EDT documented as of this encounter Care Teams Presidential Helicopter Crew Chief Relationship Specialty Start Date End Date Gary Roberts MD [address] [place] [address] PCP - General 10/18/20 documented as of this encounter
--- OUTSIDE RECORDS SUMMARY | 2024-12-05 10:03 | XMS_ITS | Encounter Summary ---
Author Organization [facility] Address [address] [place] [address] Care Team Providers Care Paste Mixing Supervisor Name Role Phone Gary Roberts MD Primary Care Provider +1- [phone] Encounter Details Date Type Department Care Team ([facility] st Contact Info) Description 09/18/2024 Results Follow-Up [facility] Nephrology, Bone & Mineral Metabolism [address] [facility], [address] [place] [address] Edinson Reyes MD [address] [place] [address] Social History Tobacco Use Types Packs/Day Years [...] drink first t figueroa in the morning (EYE-OFF PREMISE SERVICE REPRESENTATIVE) to steady your nerves or to get [...] way Not at all 11/01/2024 1:34 PM EDT Alyssa Talbert, RN Patient Health Questionnaire -9 Score 0 11/01/2024 1:34 PM EDT Alyssa Talbert, RN * If you checked off any [...] Info) Description 03/28/2025 11:00 AM EDT Evaluation [facility] Bone & Mineral Metabolism [address] [facility], [address] [place] [address] Chapo Santoro, PharmD [address] [facility] [address] [place] [address] 03/29/2025 10:40 AM EDT Office Visit [facility] Nephrology, Bone & Mineral Metabolism [address] [facility], [address] [place] [address] Edinson Reyes MD [address] [place] [address] documented as of this encounter Visit Diagnoses Not on filedocumented in this encounter Additional Health Concerns Assessment Noted Time A fall risk assessment has been complete d for the patient 09/14/2024 10:57 AM EDT A Body Mass Index follow-up plan has been documented for the patient 09/14/2024 3:04 PM EDT documented as of this encounter Care Teams Paste Mixing Supervisor Relationship Specialty Start Date End Date Gary Roberts MD [address] [place] [address] PCP - General 10/18/20 documented as of this encounter
--- OUTSIDE RECORDS SUMMARY | 2024-12-05 10:03 | XMS_ITS | Referral Summary ---
Author Organization [employer] [employer] [facility] ([place], [place], [place], [place]) Address [address] [place] [address] Care Team Providers Care Doctor Of Pharmacy Name Role Phone Gary Roberts MD Primary Care Provider +1- [phone] Allergies Active Allergy Reactions Criticality Noted Date Comments Karthik Inhibitors Low 03/17/2013 Other reaction(s): Cough Amoxicillin Low 11/30/2011 Other reaction(s): Unknown Penicillins Pt cant remember, reaction was when she was 20 yrs old Penicillins Patient has tolerated cefuroxime (2nd gen cephalosporin) as outpatient Budesonide Medium 11/30/2011 Other reaction(s): Hallucinations, Other, Uncoded Allergy (See Comment), Unknown 1'felt out of her Head' Corticosteroids chest pain Corticosteroids Corticosteroids Cheese 11/16/2022 Other reaction(s): Unknown Metoclopramide Anxiety Low 11/30/2011 Other reaction(s): Other, Unknown vertigo Sulfa (Sulfonamide Antibiotics) Low 11/30/2011 Other reaction(s): C/O - cough, Unknown took a long time ago, doesnt remember but knows it made her feel bad Sulindac Low 11/30/2011 Other reaction(s): Unknown Pt doesnt remember, she does tolerate Mobic, which she takes daily, and IBU just fine Medications estradioL (VAGIFEM) 10 mcg tablet SMARTSI Tablet(s) Vaginal 3 Times a Week 10/16/2022 Active allopurinoL (ZYLOPRIM) 300 MG tablet Take 1 tablet (300 mg total) by mouth in the morning. 08/18/2022 Active azelastine (ASTELIN) 137 mcg (0.1 %) nasal spray 1-2 sprays in the morning and 1-2 sprays before bedtime. 10/16/2022 Active Qvar RediHaler 80 mcg/actuation inhaler 2 puffs in the morning and 2 puffs before bedtime. 10/22/2022 Active omeprazole (PriLOSEC) 20 MG capsule Take 1 capsule (20 mg total) by mouth in the morning. 09/15/2022 Active Keppra XR 500 mg 24 hr tablet Take by mouth. 10/16/2022 Active Zenpep 20,000-63,000- 84,000 unit CpDR capsule Take 1 capsule (20,000 units of lipase total) by mouth in the morning and 1 capsule (20,000 units of lipase total) at noon and 1 capsule (20,000 units of lipase total) in the evening. 10/16/2022 Active acetaminophen (TYLENOL) 500 MG tablet Take 2 tablets (1,000 mg total) by mouth every 6 (six) hours if needed. 07/25/2022 Active aspirin 81 MG EC tablet Take 1 tablet (81 mg total) by mouth. Active cetirizine (ZyrTEC) 10 MG tablet Take 1 tablet (10 mg total) by mouth in the morning. 10/16/2022 Active cholecalciferol , vitamin D3, 50 mcg (2,000 unit) Cap Take 1 capsule (2,000 Units total) by mouth. Active olmesartan (BENICAR) 40 MG tablet Take 1 tablet (40 mg total) by mouth in the morning. 10/21/2022 Active traMADoL (ULTRAM) 50 mg tablet Take 1 tablet (50 mg total) by mouth in the morning and 1 tablet (50 mg total) at noon and 1 tablet (50 mg total) in the evening. Max Daily Amount: 150 mg. 10/23/2022 Active gabapentin (NEURONTIN) 100 MG capsule SMARTSI-3 Capsule(s) By Mouth 3 Times Daily 11/09/2022 Active montelukast (SINGULAIR) 10 mg tablet Take 1 tablet (10 mg total) by mouth nightly. 10/20/2022 Active rosuvastatin (CRESTOR) 10 MG tablet Take 1 tablet (10 mg total) by mouth in the morning. 08/18/2022 Active furosemide (LASIX) 40 MG tablet Take 1 tablet (40 mg total) by mouth daily as needed. 10/30/2022 Active Xhance 93 mcg/actuation AerB 1 spray in the morning and 1 spray before bedtime. 10/16/2022 Active teriparatide 20 mcg/dose (620mcg/2.48mL) PnIj Inject subcutaneous ly. 11/03/2022 Active Social History Tobacco Use Types Packs/Day Years Used Date Smoking Tobacco: Never Smokeless Tobacco: Never Alcohol Use Standard Drinks/Week Comments Never 0 (1 standard drink = 0.6 oz pur e alcohol) Food Insecurity Answer Date Recorded Food run out past 12 months Not on file 06/07 Food did not last past 12 months Not on file 06/18/2023 Employment Answer Date Recorded Help finding and keeping a job Not on file 0 06/18/2023 Family and Community Support Answer Silvestre e Recorded Help with Day to Day Activities Not on file 06/18/2023 Feeling Lonely or Isolated Not on file 06/18 Educational Attainment Answer Date Delfin rded Speak language other than Telugu at home Not on file 06/18/2023 Want help with school or training Not on file 06/18/2023 Substance Use Answer Date Recorded Used prescription meds for non-medical reasons N ot on file 06/18/2023 Used illegal drugs past 12 months Not on file 06/18/2023 Comments Unknown Sex and Gender Information Value Date Recorded Sex Assigned at Not on file Legal Sex Female 2:36 PM CDT Gender Identity Not on file Sexual Orientation Not on file Last Filed Vital Signs Vital Sign Reading Time Taken Comments Blood Pressure 130/80 11/16/2022 2:06 PM EDT Pulse 64 11/16/2022 2:06 PM EDT Temperature - - Respiratory Rate - - Oxygen Saturation - - Inhaled Oxygen Concentration - - Weight 78.5 kg (173 lb) 11/16/2022 2:06 PM EDT Height 167.6 cm (5' 6 ) 11/16/2022 2:06 PM EDT Body Mass Index 27.92 11/16/2022 2:06 PM EDT Plan of Treatment Upcoming Encounters Date Type Department Care Team (Late st Contact Info) Description 12/20/2024 1:00 PM EDT Office Visit [facility] Bariatric Services [address] [facility] [address] [place] [address] Shahida Orellana MD [address] [place] [address] Insurance [facility] MEDICARE ADVANTAGE Care Teams Doctor Of Pharmacy Relationship Specialty Start Date End Date Gary Roberts MD [address] [place] [address] PCP - General Family Medicine 11/16/22
--- OUTSIDE RECORDS SUMMARY | 2024-12-05 10:04 | XMS_ITS | Clinical Summary ---
Author Organization [facility] Address [address] [place] [address] Care Team Providers Care Automobile Mechanic Motor Name Role Phone Gary Roberts MD Primary Care Provider [phone]- [phone] Allergies Active Allergy Reactions Criticality Noted Date Comments Karthik Inhibitors Cough Low 03/17/2013 Amlodipine Swelling High 09/14/2024 Amoxicillin Unknown - Patient states they do not know rxn details,Other - please document in the comment field Low 11/30/2011 Pt cant remember, reaction was when she was 20 yrs old Penicillins Patient has tolerated cefuroxime (2nd gen cephalosporin) as outpatient amoxicillin trihydrate Budesonide Hallucinations,Oth er - please document in the comment field,Unknown - Patient states they do not know rxn details Medium 11/30/2011 chest pain Corticosteroids Cefdinir Headache Low 09/14/2024 Metoclopramide Anxiety,Other - please document in the comment field,Unknown - Patient states they do not know rxn details,Hives Medium 11/30/2011 vertigo Reglan Nabumetone Headache Low 09/14/2024 Denosumab Rash Low 06/02/2023 Noticed red blotchy spots on legs following administration. No systemic symptoms including SOA reported. Sulfa Drugs Unknown - Patient states they do not know rxn details,Other - please document in the comment field Low 11/30/2011 took a long time ago, doesnt remember but knows it made her feel bad Substance with sulfonamide structure and antibacterial mechanism of action (substance) Sulindac Unknown - Patient states they do not know rxn details,Other - please document in the comment field,Rash Low 11/30/2011 Pt doesnt remember, she does tolerate Mobic, which she takes daily, and IBU just fine sulindac Wound Dressing Adhesive Rash Low 01/29/2022 * request cloth tape only* Medications pancrelipase, Ehq-Lidt-Sqar, (Zenpep) 25193-01907 units capsule delayed-release particles capsule 3 (three) times a day with meals. 7 Active allopurinol (Zyloprim) 300 MG tablet 1 (one) time each day. 0 Active estradiol (Vagifem) 10 MCG tablet vaginal tablet 3 times a week 9 Active gabapentin (Neurontin) 100 MG capsule 4 (four) times a day. Active azelastine (Astelin) 0.1 % nasal spray INSTILL 2 SPRAYS IN EACH NOSTRIL TWICE DAILY 2 Active cetirizine (ZyrTEC) 10 MG tablet Take 1 tablet (10 mg) by mouth daily. 2 Active Keppra XR 500 MG 24 hr tablet TAKE ONE TABLET BY MOUTH IN THE MORNING & TAKE 4 TABLETS BY MOUTH AT BEDTIME DAILY DIRECTED 2 Active montelukast (Singulair) 10 MG tablet Take 1 tablet (10 mg) by mouth nightly. 2 Active rosuvastatin (Crestor) 10 MG tablet Take 1 tablet (10 mg) by mouth daily. Active Calcium-Magnesium -Vitamin D (CALCIUM 1200+D3 PO) Take 1 tablet by mouth 1 (one) time each day. Active ferrous sulfate 325 (65 Fe) MG tablet Take 1 tablet (325 mg) by mouth daily with breakfast. Active Multiple Vitamin (multivitamin) tablet Take 1 tablet by mouth daily. Active psyllium (Konsyl Daily Fiber) 100 % packet Take 1 packet by mouth daily. Active acetaminophen (Tylenol) 500 MG tablet Take 2 tablets (1,000 mg total) by mouth every 6 (six) hours if needed for pain. 40 tablet 3 Active denosumab (Prolia) 60 MG/ML injection Inject 1 mL (60 mg) under the skin 1 (one) time. Active albuterol 108 (90 Base) MCG/ACT inhaler INHALE TWO PUFFS BY MOUTH EVERY 4 TO 6 HOURS FOR SHORTNESS OF BREATH, WHEEZING, CHEST TIGHTNESS, OR COUGHING 3 Active fluticasone (Flonase) 50 MCG/ACT nasal spray 4 Active fluticasone (Flovent) 110 MCG/ACT inhaler 5 Active furosemide (Lasix) 20 MG tablet Take 1 tablet (20 mg) by mouth daily as needed. 4 Active Xiidra 5 % solution instill 1 drop IN EACH EYE EVERY TWELVE HOURS Active olmesartan (BENIcar) 20 MG tablet 5 Active calcitriol (Rocaltrol) 0.25 MCG capsuleIndication s:Age-related osteoporosis without current pathological fracture Take 1 capsule by mouth daily. 30 capsule 5 5 03/02/20 25 Active omega-3 (Fish Oil) 1200 MG capsule 1 (one) time each day at the same time. Active olopatadine (Patanol) 0.1 % ophthalmic solution every 12 (twelve) hours. Active aspirin 81 MG EC tablet Take 1 tablet by mouth Daily. Active omeprazole (PriLOSEC) [address] capsule Take 1 capsule by mouth daily. 5 Active OLOPATADINE HCL OP 4 Active Active Problems Problem Noted Date Diagnosed Date Stage 3a chronic kidney disease 08/25/2024 Fusion of spine of thoracolumbar region 08/09/19 25 Exocrine pancreatic insufficiency 05/04/2023 Fusion of lumbosacral spine 07/22/2022 Age-related osteoporosis wit hout current pathological fracture 04/23/2022 Seizures 04/15/2022 GERD (gastroesophageal reflux disease) 2 Spondylolisthesis, thoracic region 01/29/2022 Neurogenic claudication 01/29/2022 Overview (01/29/2022): Added automatically from request for surgery [id number] Pseudarthrosis after fusion or arthrodesis 01/29 S/P total hip arthroplasty 04/27/2018 Impairment of balance 01/04/2018 Foot drop, left foot 11/19/2017 Hiatal hernia 11/17/2016 Physical deconditioning 01/30/2016 Lumbar stenosis with neurogenic claudication History of bilateral knee replacement 01/30/2016 Borderline type 2 diabetes mellitus 01/30/2016 CHER on CPAP Overview (11/28/2022): uses cpap. Encounters Date Type Department Care Team Description 11/01/2024 1:40 PM EDT Office Visit [facility] [address] [address] Jace Valero, Trochanteric bursitis, left hip (Primary Dx); Altered gait; History of foot fracture 11/01/2024 Travel 10/03/[address] [facility] [address] [place] [address] Maude Macias, PharmD 10/02/2024 Telephone [facility] Mineral Metabolism [address] [place] [address] Chapo Santoro, PharmD 09/26/2024 Telephone [facility] [address] [facility], [address] [place] [address] Sheyla Kaye, PICTURE BOOKER 09/18/2024 Travel 09/18/2024 Results Follow-Up [facility] Nephrology, Bone & Mineral Metabolism [address], [address] [place] [address] Edinson Reyes MD 09/15/2024 Telephone [facility] [address] [place] [address] Hermila Gore CNA Prolia 09/14/2024 10:40 AM EDT Consult [facility] Nephrology, Bone & Mineral Metabolism [address], [address] [place] [address] Edinson Reyes MD Acute kidney injury superimposed on CKD (CMS/HCC) (Primary Dx); CKD (chronic kidney disease), stage II; Essential hypertension; Hyperuricemia; Chronic kidney disease-mineral and bone disorder; Age-related osteoporosis without current pathological fracture; Osteoarthritis, unspecified osteoarthritis type, unspecified site 09/14/2024 Travel 09/13/2024 Travel from Last 3 Months Immunizations Immunization Administration Dates Next Due Hep A, Adult 09/24/2018,03/23/2018 Influenza, Unspecified 03/07/2017 Influenza, high-dose, quadrivalent 04/03/2021 Influenza, injectable, quadrivalent 03/11/2020 Pneumococcal 20-rj Conj Vaccine 04/20/2023 Pneumococcal Polysaccharide PPV23 03/12/2017 Pneumococcal, Unspecified 03/07/2017 Rsvpref, Recombinant, Protein Subunit, Adjuvent 05/06/2023 Varicella 05/24/2007,03/29/2007 Family History Medical History Relation Name Comments Arthritis Brother Marco Reynolds Mendoza Cancer Brother Marco Reynolds Mendoza Arthritis Father Broderick Mendoza Heart disease Father Broderick Mendoza Arthritis Father's Brother 1 Luis Mendoza Arthritis Father's Brother 2 Gold Pablo Mendoza Arthritis Father's Sister Yessi Mendoza Molony Kidney disease Father's Sister Yessi Mendoza Molony Osteoporosis Father's Sister Yessi Mendoza Molony Rheumatologic disease Father's Sister Yessi Mendoza M olony Rheumatologic disease Maternal Grandmother Deysi Mendoza Stroke Maternal Grandmother Deysi Perla n Cancer Mother Maria Teresa Mendoza Diabetes Mother Maria Teresa Mendoza Stroke Mother Maria Teresa Mendoza Vision loss Mother Maria Teresa Mccarthy Mendoza Arthritis Other 1 Diabetes Other 2 Hypertension Other 3 Other cancer Other 4 Heart Problem Other 5 Stroke Paternal Grandfather Hira Mendoza Arthritis Paternal Grandmother Deysi tom Rheumatologic disease Paternal Grandmother Deysi Mendoza Arthritis Sister Zena Shaw Anesthesia problems Neg Hx Malig Hyperthermia Neg Hx Relation Name Status Comments Brother Marco Reynolds Mendoza Father Broderick Mendoza Alive Father's Brother 1 Luis Mendoza Alive Father's Brother 2 Gold Mendoza Alive Father's Sister Yessi Mendoza Molony Maternal Grandmother Deysi Mendoza Mother Maria Teresa Mendoza Other 1 Other 2 Other 3 Other 4 Other 5 Paternal Grandfather Hira Mendoza Alive Paternal Grandmother Deysi Mendoza Alive Sister Zena Shaw Alive Social History Tobacco Use Types Packs/Day Years Used Date Smoking Tobacco: Never Passive Smoke Exposure: Never Smokeless Tobacco: Never Tobacco Cessation:Counseling Given: Not Answered Comments:Never Used but 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 0 07/23/2022 CAGE Questionnaire Score 0 023 Comments No Sex and Gender Information Value Date Recorded Sex Assigned at Female 05/15/2021 3:09 PM EST Legal Sex Female 8:10 PM EDT Gender Identity Female 05/15/2021 3:09 PM EST Sexual Orientation Straight 05/15/2021 3: 09 PM EST Last Filed Vital Signs Vital Sign Reading Time Taken Comments Blood Pressure 121/75 11/01/2024 1:30 PM EDT Pulse 70 11/01/2024 1:30 PM EDT Temperature 36.7 C (98.1 F) 09/14/2024 10:44 AM EDT Respiratory Rate 16 11/01/2024 1:30 PM EDT Oxygen Saturation 96% 11/01/2024 1:30 PM EDT Inhaled Oxygen Concentration - - Weight 88.9 kg (196 lb) 11/01/2024 1:30 PM EDT Height 157.5 cm (5' 2 ) 09/14/2024 10:44 AM EDT Body Mass Index 35.85 09/14/2024 10:44 AM EDT Plan of Treatment Upcoming Encounters Date Type Department Care Team ([facility] st Contact Info) Description 03/28/2025 11:00 AM EDT Evaluation Professional [facility] Min[facility] [address] [facility], [address] [place] [address] Chapo Santoro, PharmD [address] [place] [address] 03/29/2025 10:40 AM EDT Office Visit [facility] Nephrology, Bone & Mineral Metabolism [address] , [address] [place] [address] Edinson Reyes MD [address] [place] [phone] Health Maintenance Due Date Last Done Comments [facility]-Hepatitis C Screening 1950 [facility]-Medicare Annual Wellness (AWV) 1950 [facility]-/Child/Adol SDOH Screenings 1950 [facility]- SDOH Screenings 1968 [facility]-Adult SDOH Screenings 1968 CT Colonography 12/24/1995 Colonoscopy 12/24/1995 FIT-DNA 12/24/1995 FIT 12/24/1995 FOBT 12/24/1995 Sigmoidoscopy 12/24/1995 [facility]-Colorectal Cancer Screening 12/24/1995 [facility]-Zoster Vaccines (1 of 2) 2000 05/24/2007, 03/29/2007 [id number] Vaccine ( season) 2024 03/11/2022, 03/12/2021, 07/22/2020, Additional history exists [facility]-Influenza Vaccine (Season Ended) 2025 04/03/2021, 03/11/2020, 02/23/2020, Additional history exists [facility]-DTaP,Tdap,and Td Vaccines (2 - Td or Tdap) 04/12/2025 04/12/2015 [facility]-Bone Density Scan 08/25/2025 08/25/2024 , 04/19/2023, 03/12/2022, Additional history exists [facility]-Depression Screening 11/01/2025 11/01/2024, 10/06 [facility]-Breast Cancer Screening 04/21/202604/07, 04/21/2024, 04/11/2024, Additional history exists [facility]-Hepatitis A Vaccines Aged Out 09/24/2018, 03/07 No longer eligible based on patient's age to complete this topic [facility]-Diabetes: Hemoglobin A1C Discontinued 04/09/2022, 03/20/2019 [facility]-Pneumococcal Vaccine: 50+ Years Completed 04/20/2023, 03/12/2017, 03/07/2017, Additional history exists [facility]-RSV Vaccine: 60+ Years or Completed 05/06/2023 [facility]-Obesity Intervention Completed 025, 09/14/2024, 08/25/2024, Additional history exists HPV Vaccines Aged Out No longer eligi ble based on patient's age to complete this topic [facility]-HIB Vaccines Aged Out No longer e ligible based on patient's age to complete this topic [facility]-IPV Vaccines Aged Out No longer e ligible based on patient's age to complete this topic [facility]-Rotavirus Vaccines Aged Out No lo nger eligible based on patient's age to complete this topic Medical Devices Implanted Type Area Farm 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-[id number] 02/23/2027 PCAN1/2 / [id number] / [id number] Screw 5.5mm Viper Ti Fen Crtcl Polyax 6mm X 30mm - [id number] Implanted:Qty: 8 on 07/22/2022 by Pratik Carver MD at [facility] N/A: Spine Lumbar [employer]-[id number] 07/22/2023 [id number] / / Chip Bone 40cc - [id number] - [id number] Implanted:Qty: 1 on 07/22/2022 by Pratik Carver MD at [facility] N/A: Spine Lumbar [facility]-[id number] 04/21/2027 PCAN1/2 / [id number] / [id number] Graft Vivigen 5cc - [id number] - [id number] Implanted:Qty: 1 on 07/22/2022 by Pratik Carver MD at [facility] N/A: Spine Lumbar [facility]-722856 07/01/2023 BL-1500-002 / [id number] / [id number] Screw 5.5mm Viper Ti Fen Crtcl Polyax 5mm X 40mm - [id number] Implanted:Qty: 2 on 07/22/2022 by Pratik Carver MD at [facility] N/A: Spine Lumbar [employer]-[id number] 07/22/2023 [id number] / / Screw Exp Viper Lg Tit 9x100 - [id number] Implanted:Qty: 1 on 07/22/2022 by Pratik Carver MD at [facility] N/A: Spine Lumbar [employer]-[id number] 07/22/2023 [id number] / / Screw 5.5mm Viper Ti Polyax Fullthrd 8mm X 100mm - [id number] Implanted:Qty: 1 on 07/22/2022 by Pratik Carver MD at [facility] N/A: Spine Lumbar [employer]-[id number] 07/22/2023 [id number] / / Single Inner Setscrew - [id number] Implanted:Qty: 23 on 07/22/2022 by Pratik Carver MD at [facility] N/A: Spine Lumbar [employer]-[id number] 07/22/2023 [id number] / / Ap Expedium Ti Precontoured Small 5.5mm - [id number] Implanted:Qty: 2 on 07/22/2022 by Pratik Carver MD at [facility] N/A: Spine Lumbar [employer]-[id number] 07/22/2023 [id number] / / Plate Sfx 5.5 Ti Med Size A5 - [id number] Implanted:Qty: 1 on 07/22/2022 by Pratik Carver MD at [facility] N/A: Spine Lumbar [employer]-[id number] 07/22/2023 [id number] / / Procedures Procedure Name Priority Date/Time Associated Diagnosis Comments CBC WITH AUTO DIFFERENTIAL Routine 09/14/2024 11:48 AM EDT Acute kidney injury superimposed on CKD (CMS/HCC) RENAL FUNCTION PANEL, PLASMA Routine 09/14/2024 11:48 AM EDT Acute kidney injury superimposed on CKD (CMS/HCC) PROTEIN, URINE, RANDOM WITH CREATININE Routine 09/14/2024 11:48 AM EDT Acute kidney injury superimposed on CKD (CMS/HCC) URINALYSIS WITH REFLEX MICROSCOPIC Routine 09/14/2024 11:48 AM EDT Acute kidney injury superimposed on CKD (CMS/HCC) DEXA BONE DENSITY Routine 08/25/2024 11: 50 AM EDT Age-related osteoporosis without current pathological fracture HEMOGLOBIN A1C Routine 04/09/2022 11:21 AM EDT Spondylolisthesis, thoracic region Neurogenic claudication (CMS/HCC) Pseudarthrosis after fusion or arthrodesis from Last 3 Months or Most Recently Relevant to Health Maintenance Results * Protein, Random, Urine with Creatinine (09/14/2024 11:48 AM EDT) Protein, Urine <6 mg/dL 09/14/2024 3:07 PM EDT [facility] Creatinine, Urine 35 mg/dL 09/14/2024 3:07 PM EDT [facility] Protein/Creati nine Ratio 09/14/2024 3:07 PM EDT [facility] Urine Urine specimen obtained by clean catch procedure / Unknown Non-blood Collection / Unknown 09/14/2024 11:48 AM EDT 09/14/2024 12:10 PM EDT us Edinson Reyes MD LAB URINE ORDERABLES Final Re sult [facility] [address] [place] [address] * Urinalysis with reflex microscopic (Culture NOT Included) (09/14/2024 11:48 AM EDT) Color, Urine Yellow LAB URINALYSIS - AUTOMATED METHOD 09/14/2024 2:35 PM EDT [facility] Clarity, Urine Clear LAB URINALYSIS - AUTOMATED METHOD 09/14/2024 2:35 PM EDT [facility] Spec C[place], Urine 1.010 1.005 - 1.030 LAB URINALYSIS - AUTOMATED METHOD 09/14/2024 2:35 PM EDT [facility] pH, Urine 6.0 5.0 - 8.0 LAB URINALYSIS - AUTOMATED METHOD 09/14/2024 2:35 PM EDT [facility] Protein, Urine Negative Negative mg/dL LAB URINALYSIS - AUTOMATED METHOD 09/14/2024 2:35 PM EDT [facility] Glucose, Urine Negative Negative mg/dL LAB URINALYSIS - AUTOMATED METHOD 09/14/2024 2:35 PM EDT [facility] Ketones, Urine Negative Negative mg/dL LAB URINALYSIS - AUTOMATED METHOD 09/14/2024 2:35 PM EDT [facility] Blood, Urine Negative Negative LAB URINALYSIS - AUTOMATED METHOD 09/14/2024 2:35 PM EDT [facility] Bilirubin, Urine Negative Negative LAB URINALYSIS - AUTOMATED METHOD 09/14/2024 2:35 PM EDT [facility] Urobilinogen, Urine 0.2 0.2 to 1.0 mg/dL LAB URINALYSIS - AUTOMATED METHOD 09/14/2024 2:35 PM EDT [facility] Leukocytes, Urine Negative Negative LAB URINALYSIS - AUTOMATED METHOD 09/14/2024 2:35 PM EDT [facility] Nitrite, Urine Negative Negative LAB URINALYSIS - AUTOMATED METHOD 09/14/2024 2:35 PM EDT [facility] Urine Urine specimen obtained by clean catch procedure / Unknown Non-blood Collection / Unknown 09/14/2024 11:48 AM EDT 09/14/2024 12:10 PM EDT us Edinson Reyes MD LAB URINE ORDERABLES Final Re sult [facility] [address] [place] [address] * (ABNORMAL) CBC and Differential (09/14/2024 11:48 AM EDT) WBC Count 12.02(H) 3.70 - 10.30 10*3/uL LAB HEMATOLOGY METHOD 09/14/2024 2:33 PM EDT [facility] RBC Count 4.10 3.90 - 5.20 10*6/uL LAB HEMATOLOGY METHOD 09/14/2024 2:33 PM EDT [facility] HGB 11.1(L) 11.2 - 15.7 g/dL LAB HEMATOLOGY METHOD 09/14/2024 2:33 PM EDT [facility] HCT 35.9 34.0 - 45.0 % LAB HEMATOLOGY METHOD 09/14/2024 2:33 PM EDT [facility] Platelet Count 343 155 - 369 10*3/uL LAB HEMATOLOGY METHOD 09/14/2024 2:33 PM EDT [facility] MCV 88 79 - 98 fL LAB HEMATOLOGY METHOD 09/14/2024 2:33 PM EDT [facility] MCH 27.1 26.0 - 32.0 pg LAB HEMATOLOGY METHOD 09/14/2024 2:33 PM EDT [facility] MCHC 30.9 30.7 - 35.5 g/dL LAB HEMATOLOGY METHOD 09/14/2024 2:33 PM EDT [facility] RDW 14.6(H) 11.5 - 14.5 % LAB HEMATOLOGY METHOD 09/14/2024 2:33 PM EDT [facility] MPV 10.4 8.8 - 12.5 fL LAB HEMATOLOGY METHOD 09/14/2024 2:33 PM EDT [facility] nRBC 0.0 <=0.0 per 100 WBCs LAB HEMATOLOGY METHOD 09/14/2024 2:33 PM EDT [facility] Differential Type Automated LAB HEMATOLOGY METHOD 09/14/2024 2:33 PM EDT [facility] Neutrophils % 63 % LAB HEMATOLOGY METHOD 09/14/2024 2:33 PM EDT [facility] Lymphocytes % 27 % LAB HEMATOLOGY METHOD 09/14/2024 2:33 PM EDT [facility] Monocytes % 6 % LAB HEMATOLOGY METHOD 09/14/2024 2:33 PM EDT [facility] Eosinophils % 2 % LAB HEMATOLOGY METHOD 09/14/2024 2:33 PM EDT [facility] Basophils % 1 % LAB HEMATOLOGY METHOD 09/14/2024 2:33 PM EDT [facility] Immature Granulocytes % 1 % LAB HEMATOLOGY METHOD 09/14/2024 2:33 PM EDT [facility] Neutrophils Absolute 7.73(H) 1.60 - 6.10 10*3/uL LAB HEMATOLOGY METHOD 09/14/2024 2:33 PM EDT [facility] Lymphocytes Absolute 3.25 1.20 - 3.90 10*3/uL LAB HEMATOLOGY METHOD 09/14/2024 2:33 PM EDT [facility] Monocytes Absolute 0.71 0.30 - 0.90 10*3/uL LAB HEMATOLOGY METHOD 09/14/2024 2:33 PM EDT [facility] Eosinophils Absolute 0.18 0.00 - 0.50 10*3/uL LAB HEMATOLOGY METHOD 09/14/2024 2:33 PM EDT [facility] Basophils Absolute 0.09 0.00 - 0.10 10*3/uL LAB HEMATOLOGY METHOD 09/14/2024 2:33 PM EDT [facility] Immature Granulocytes Absolute 0.06 0.00 - 0.06 10*3/uL LAB HEMATOLOGY METHOD 09/14/2024 2:33 PM EDT [facility] Blood Venous blood specimen / Unknown Venipuncture / Unknown 09/14/2024 11:48 AM EDT 09/14/2024 12:10 PM EDT Narrative [facility] - 09/14/2024 2:33 PM EDT Therapeutic decision making should be based on absolute values, rather than percentages. Edinson Reyes MD LAB BLOOD ORDERABLES Final Re sult [facility] [address] [place] [id number] * (ABNORMAL) Renal Function Panel, Plasma (09/14/2024 11:48 AM EDT) Glucose, Plasma 120(H) 74 - 99 mg/dL 09/14/2024 3:12 PM EDT [facility] BUN, Plasma 26(H) 8 - 23 mg/dL 09/14/2024 3:12 PM EDT [facility] Creatinine, Plasma 0.93 0.60 - 1.10 mg/dL 09/14/2024 3:12 PM EDT [facility] BUN/Creatinine Ratio 28 09/14/2024 3:12 PM EDT [facility] Sodium, Plasma 138 136 - 145 mmol/L 09/14/2024 3:12 PM EDT [facility] Potassium, Plasma 4.0 3.6 - 4.9 mmol/L 09/14/2024 3:12 PM EDT [facility] Chloride, Plasma 101 97 - 107 mmol/L 09/14/2024 3:12 PM EDT [facility] CO2, Plasma 24 22 - 29 mmol/L 09/14/2024 3:12 PM EDT [facility] Anion Gap 13 6 - 16 mmol/L 09/14/2024 3:12 PM EDT [facility] Total Calcium, Plasma 9.0 8.9 - 10.2 mg/dL 09/14/2024 3:12 PM EDT [facility] Phosphorus, Plasma 3.1 2.5 - 4.5 mg/dL 09/14/2024 3:12 PM EDT [facility] Albumin, Plasma 4.2 3.5 - 5.2 g/dL 09/14/2024 3:12 PM EDT [facility] eGFRcr 65.0 mL/min/1.7 3m*2 09/14/2024 3:12 PM EDT [facility] Comment:Reported eGFRcr in m L/min/1.73m2 is based the CKD-EPI 2020 equation that does not use a race coefficient. Blood Venous blood specimen / Unknown Venipuncture / Unknown 09/14/2024 11:48 AM EDT 09/14/2024 12:10 PM EDT us Edinson Reyes MD LAB BLOOD ORDERABLES Final Re sult [facility] [address] [place] [address] * Dexa Bone Density (08/25/2024 11:50 AM EDT) Anatomical Region Laterality Modality L-spine Radiographic Deepali ging Narrative 09/06/2024 8:02 AM EDT [facility] [address] [place] [address] DXA Bone Densitometry Report: [08/25/2024] BMD test performed using the [employer] DXA System (analysis version: 14.10) manufactured by [employer]. REFERRING PROVIDER: Dr. Eric Barrientos MD CLINICAL INFORMATION: osteoporosis PATIENT NAME: Fani Mondragon PATIENT AGE: 73 y.o. LEGAL SEX: female RADIOGRAPHIC VIEWS: Sites scanned: HIP Right , RADIUS Right , and RADIUS Left COMPARISON STUDY: DXA Axial 04/19/2023 and DXA Extremity 04/19/2023 FINDINGS: Based on WHO criteria (post-menopausal female) the diagnosis is Osteoporosis The lowest T- score is -2.5 in the LFA There is decline in the left forearm and stability in the right hip compared to prior measurements The presence of arthritic or degenerative joint changes in the spine could artefactually increase measured BMD. TREATMENT RECOMMENDATIONS: Measured bone density crosses threshold for treatment of osteoporosis Specific anti-osteoporotic therapy remains indicated given high risk of future fracture Patient has received specific treatment for osteoporosis in the last year. Work up for secondary osteoporosis and metabolic bone disease could be considered based on clinical indications. Treatment decisions may be based on clinical considerations. Suggest VFA for complete evaluation. Suggest general measures to optimize calcium and vitamin D status, fall prevention measures and reduce fracture risk. Consider repeating this study in 1 year(s) or as clinically indicated to assess bone density change or response to treatment (should be performed on the same DXA scanner to allow for direct comparison and calculation of change in BMD). Eric Barrientos MD [facility] [place] DXA PROCEDURES Final Resul t * (ABNORMAL) Hemoglobin A1c (04/09/2022 11:21 AM EDT) Hemoglobin A1c 6.4(H) <5.7 % 04/10/2022 8:39 AM EDT [facility] Blood Venous blood specimen / Unknown Venipuncture / Unknown 04/09/2022 11:21 AM EDT 04/09/2022 11:22 AM EDT Narrative [facility] - 04/10/2022 8:39 AM EDT HA1C Interpretive Data: Diagnosis of Diabetes: Diabetic > or = 6.5% Pre-diabetic 5.7 to 6.4% Non-diabetic < or = 5.6% Glycemic Targets for Type I and Type II Diabetics: Non- Adults <7.0% Adults <6.0% Children and Adolescents <7.5% Source: [place] [employer]. Standards of medical care in diabetes,2017. Diabetes Care.2017:40 (suppl 1):S1-S135. HbA1c assay performed by an ion-exchange chromatography method that is certified traceable to the DCCT. us Pratik Carver MD LAB BLOOD ORDERABLES Final Res [facility] [address] [place] [address] from Last 3 Months or Most Recently Relevant to Health Maintenance Insurance [place] [id number] [facility] MEDICARE Advance Directives * Full Code (Latest Code Status on File) Date Activated Date Inactivated Comments 07/22/2022 1:01 PM 07/25/2022 4:04 PM Question Answer Comments Patient has decision-making capacity? Yes Care Teams Automobile Mechanic Motor Relationship Specialty Start Date End Date Gary Roberts MD [address] [place] [id number] PCP - General 10/18/20
--- OUTSIDE RECORDS SUMMARY | 2024-12-05 10:04 | XMS_ITS | Data Portability ---
Author Organization CHATO Allison castillo, CKS HEADRICK CLOSED Address [address] [facility] [address] [place] [address] Care Team Providers Care Employment Educational Coord Name Role Phone IRWIN LUNA Primary Care Provider [phone] [place] Podiatric Surgeon Assessment Encounter Date Assessment Date Assessment LastModified by Organization Details LastModified Time 04/21/2021 04/21/2021 1. Peripheral neuropathy 2. Epilepsy, she is free of seizure 3. Restless Leg syndrome, she says doing well without med 4. Headaches, occurred during use of nabumetone headache stopped when stopped this med 5. Abnormal gait due to neuropathy. uses cane 5. impairment of balance Plan 1. Continue Keppra XR 750 mg 1 in AM and 4 at bed 2. Neuropathy is very stable, no changes evident 3. Continue walk with straight cane 4. Follow up in 1 year, sooner if needed. [email or web address] Not available 04/21/2021 12:13:31 10/16/2021 10/16/2021 1. Tired, feels never rested 2. Intermittent confusion 3. Epilepsy, complete control of seizure 4. Free of seizure for 16 years, last seizure approx 2005 5. Disease controlled on brand Keppra XR 6. Sensory neuropathy Plan 1. I do not known the cause of her symptoms 2. Today submit blood tests B12, B1, TSH, T4, CMP, CBC , ESR 3. Schedule brain MRI 4. Follow up with me on day of MRI to review images 5. I did not change any med or any doses today [email or web address] Not available 10/19/2021 10:15:16 04/21/2022 04/21/2022 1. Epilepsy 2. Free of seizure 3. Disease controlled by levetiracetam 4. Idiopathic neuropathy 5. Neuropathic pain better with gabapentin 100 mgm 2 caps tid and 2 hs ( 8 caps per day) 6 Severe DJD spine, S/p spine surgery 7. Abnormal gait, walks with cane Plan 1. She plans to wean off gabapentin to see if this is needed/necessary ; I advised slow wean over 3 or 4 or 5 weeks 2. Continue levetiracetam 500 mgm dose 1 in AM and 4 tabs hs 3. No changes needed 4. Follow up visit in 1 year Not available 04/21/2022 12:02:30 08/09/2023 08/09/2023 Assessment: 1. Epilepsy, onset at approximately late 20's 2. Seizure free on medication, her last seizure was July 2005 3. Disease controlled by Keppra XR 500mg (brand name) 1 tablet in the morning and 4 tablets at bedtime Plan: 1. She is doing very well 2. No changes are needed 3. I will e-scribe her medication for 3 month supply with refills 4. I commented to her that I plan to retire at [place] [id number]. We spoke that her next follow up will be scheduled with Kassandra Andrews PA-C. I commented to the patient that I will be present for all of 2023 and that she can telephone the office if needed. 5. Follow up in 1 year with Kassandra Andrews PA-C. NOTE: PCP is Dr. Broderick Luna [email or web address] Not available 08/16/2023 09:36:33 08/09/2024 08/09/2024 73 yo here today for recheck 1) neuropathy - continues on gabapentin 100mg 1 cap TID then 3 cap QHS. CSA signed today, CEE reviewed today. She will think about trying to eliminate 1 day time dose to see if she has any problems 2) seizure - last seizure in 2005. She continues on Keppra XR (brand name only per MD preference) 500mg 1 in am, 4 QHS. RTC 6m, PRN [email or web address] Not available 08/09/2024 14:12:48 Plan of Treatment Reminders Order Date Submit Date Provider Last Modified By Organization Details Last Modified Time Details Appointments NEUROLOG Y RECHECK 2024 01:00P [facility] Not available Not available Not available Lab CMP, serum or plasma 2021 [email or web address] [facility], [address] [place] [address], [phone], 10/16/2021 21:59:52 vitamin B12, serum 2021 [facility], [address] [place] [address], [address], 10/16/2021 21:59:52 ESR (erythro cyte sediment ation rate), blood 2021 [email or web address] [facility], [address] [place] [address], [address], 10/16/2021 21:59:52 TSH, serum or plasma 2021 [email or web address] [facility], [address] [place] [address], [address], 10/16/2021 21:59:52 T4, free, serum 2021 [email or web address] [facility], [address] [place] [address], [id number], 10/16/2021 21:59:52 CBC w/ auto diff [address] [facility], [address] [place] [address], [address], 10/16/2021 21:59:52 vitamin B1 (thiamin e), blood 2021 [facility], [address] [place] [address], [address], 10/20/2021 18:15:19 Referral None recorded . Procedures None recorded . Surgeries None recorded . Imaging MRI, brain, w/o contrast 2021 [facility], [address] [place], [address], 10/23/2021 08:57:00 Medication Orders Keppra XR 500 mg tablet,e xtended release 2024 025 [facility], [address] [place] [address] [place], [id number], 08/09/2024 14:01:47 gabapent in 100 mg capsule 2024 025 [facility], [address] [place] [address] [place], [id number], 08/09/2024 14:01:47 Keppra XR 500 mg tablet,e xtended release 2023 024 [facility], [address] [place] [address] [place], [id number], 06/26/2024 16:36:50 levetira cetam 500 mg tablet [email or web address], [address] [place] [address] [place], [id number], 08/09/2024 13:02:01 gabapent in 100 mg capsule 2021 022 [facility], [address] [place] [address] [place], [phone], 04/21/2022 12:11:24 Patient TargetsNo targets recorded. Patient InstructionsNo instructions recorded. Reason for Referral None Reported. Results Created Date Observation Date Name Description Value Unit Range Abnormal Flag Note LastModifiedBy Organization Detail LastModifiedTime 10/17/19 22 10/16/2021 COMPL ETE BLOOD COUNT white blood cells 10.1 K/uL 3.8-10 .8 normal Not Available [facility] [address] [place] [address], [address], 10/16/2021 17:39:13 10/17/19 22 10/16/2021 COMPL ETE BLOOD COUNT red blood cells 3.89 M/uL 3.80-5 .20 normal Not Available [facility] [address] [place] [address], [address], 10/16/2021 17:39:13 10/17/19 22 10/16/2021 COMPL ETE BLOOD COUNT hemoglobin 10.6 g/dL 12.0-1 6.0 low Not Available [facility] [address] [place] [address], [address], 10/16/2021 17:39:13 10/17/19 22 10/16/2021 COMPL ETE BLOOD COUNT hematocrit 32.5 % 35.0-4 7.0 low Not Available [facility] [address] [place] [address], [address], 10/16/2021 17:39:13 10/17/19 22 10/16/2021 COMPL ETE BLOOD COUNT MCV 84 fL 80-100 normal Not Available [facility] [address] [place] [address], [address], 10/16/2021 17:39:13 10/17/1910/16/2021 COMPL ETE BLOOD COUNT MCH 27 pg 26-35 normal Not Available [facility] [address] [place] [address], [address], 10/16/2021 17:39:13 10/17/1910/16/2021 COMPL ETE BLOOD COUNT MCHC 33 g/dL 32-36 normal Not Available [facility] [address] [place] [address], [address], 10/16/2021 17:39:13 10/17/19 22 10/16/2021 COMPL ETE BLOOD COUNT RDW 15.5 % 11.0-1 5.0 high Not Available [facility] [address] [place] [address], [address], 10/16/2021 17:39:13 10/17/19 22 10/16/2021 COMPL ETE BLOOD COUNT MPV 8.2 fL 6.2-10 .5 normal Not Available [facility] [address] [place] [address], [address], 10/16/2021 17:39:13 10/17/19 22 10/16/2021 COMPL ETE BLOOD COUNT platelet count 336 K/uL 130-40 0 normal Not Available [facility] [address] [place] [address], [address], 10/16/2021 17:39:13 10/17/19 22 10/16/2021 COMPL ETE BLOOD COUNT neutrophil,a bsolute 6.8 K/uL 1.6-8. 4 normal Not Available [facility] [address] [place] [address], [address], 10/16/2021 17:39:13 10/17/19 22 10/16/2021 COMPL ETE BLOOD COUNT lymphocyte,a bsolute 2.5 K/uL 0.4-5. 1 normal Not Available [facility] [address] [place] [address], [address], 10/16/2021 17:39:13 10/17/19 22 10/16/2021 COMPL ETE BLOOD COUNT monocyte,abs olute 0.6 K/uL 0.0-1. 2 normal Not Available [facility] [address] [place] [address], [address], 10/16/2021 17:39:13 10/17/19 22 10/16/2021 COMPL ETE BLOOD COUNT eosinophil,a bsolute 0.2 K/uL 0.0-0. 8 normal Not Available [facility] [address] [place] [address], [address], 10/16/2021 17:39:13 10/17/19 22 10/16/2021 COMPL ETE BLOOD COUNT basophil,abs olute 0.1 K/uL 0.0-0. 3 normal Not Available [facility] [address] [place] [address], [address], 10/16/2021 17:39:13 10/17/19 22 10/16/2021 COMPL ETE BLOOD COUNT % neutrophils 67.4 % 42.0-7 8.0 normal Not Available [facility] [address] [place] [address], [address], 10/16/2021 17:39:13 10/17/19 22 10/16/2021 COMPL ETE BLOOD COUNT % lymphocytes 24.3 % 11.0-4 7.0 normal Not Available [facility] [address] [place] [address], [address], 10/16/2021 17:39:13 10/17/19 22 10/16/2021 COMPL ETE BLOOD COUNT % monocytes 5.5 % 0.0-11 .0 normal Not Available [facility] [address] [place] [address], [address], 10/16/2021 17:39:13 10/17/19 22 10/16/2021 COMPL ETE BLOOD COUNT % eosinophils 1.9 % 0.0-7. 0 normal Not Available [facility] [address] [place] [address], [address], 10/16/2021 17:39:13 10/17/19 22 10/16/2021 COMPL ETE BLOOD COUNT % basophils 0.9 % 0.0-3. 0 normal Not Available [facility] [address] [place] [address], [address], 10/16/2021 17:39:13 10/17/1910/16/2021 COMPL ETE BLOOD COUNT nucleated red cells 0.1 % 0.0-0. 9 normal Not Available [facility] [address] [place] [address], [address], 10/16/2021 17:39:13 10/17/19 22 10/16/2021 COMPL ETE BLOOD COUNT nucleated RBCs, absolute 0.01 K/uL not estab. normal Not Available [facility] [address] [place] [address], [address], 10/16/2021 17:39:13 10/17/19 22 10/16/2021 COMP. METAB OLIC PANEL glucose 102 mg/dL 74-100 high Not Available [facility] [address] [place] [address], [address], 10/16/2021 18:01:02 10/17/19 22 10/16/2021 COMP. METAB OLIC PANEL blood urea nitrogen 23 mg/dL 6-20 high Not Available [facility] [address] [place] [address], [address], 10/16/2021 18:01:02 10/17/19 22 10/16/2021 COMP. METAB OLIC PANEL creatinine 1.09 mg/dL 0.50-0 .95 high Not Available [facility] [address] [place] [address], [address], 10/16/2021 18:01:02 10/17/19 22 10/16/2021 COMP. METAB OLIC PANEL BUN/creatini ne ratio 21 (calc ) 10-20 high Not Available [facility] [address] [place] [address], [address], 10/16/2021 18:01:02 10/17/19 22 10/16/2021 COMP. METAB OLIC PANEL sodium 142 mmol/ L 136-14 5 normal Not Available [facility] [address] [place] [address], [address], 10/16/2021 18:01:02 10/17/19 22 10/16/2021 COMP. METAB OLIC PANEL potassium 3.6 mmol/ L 3.4-5. 0 normal Not Available [facility] [address] [place] [address], [address], 10/16/2021 18:01:02 10/17/19 22 10/16/2021 COMP. METAB OLIC PANEL chloride 100 mmol/ L 98-107 normal Not Available [facility] [address] [place] [address], [address], 10/16/2021 18:01:02 10/17/19 22 10/16/2021 COMP. METAB OLIC PANEL carbon dioxide 28 mmol/ L 22-31 normal Not Available [facility] [address] [place] [address], [address], 10/16/2021 18:01:02 10/17/19 22 10/16/2021 COMP. METAB OLIC PANEL anion gap 14 (calc ) 7-25 normal Not Available [facility] [address] [place] [address], [address], 10/16/2021 18:01:02 10/17/19 22 10/16/2021 COMP. METAB OLIC PANEL calcium 9.4 mg/dL 8.6-10 .2 normal Not Available [facility] [address] [place] [address], [address], 10/16/2021 18:01:02 10/17/19 22 10/16/2021 COMP. METAB OLIC PANEL total protein 7.4 g/dL 6.4-8. 3 normal Not Available [facility] [address] [place] [address], [address], 10/16/2021 18:01:02 10/17/19 22 10/16/2021 COMP. METAB OLIC PANEL albumin 4.4 g/dL 3.5-5. 2 normal Not Available [facility] [address] [place] [address], [address], 10/16/2021 18:01:02 10/17/19 22 10/16/2021 COMP. METAB OLIC PANEL globulin 3.0 g/dL_ (calc ) 1.5-4. 5 normal Not Available [facility] [address] [place] [address], [address], 10/16/2021 18:01:02 10/17/19 22 10/16/2021 COMP. METAB OLIC PANEL albumin/glob ulin ratio 1.5 (calc ) 1.1-2. 5 normal Not Available [facility] [address] [place] [address], [address], 10/16/2021 18:01:02 10/17/19 22 10/16/2021 COMP. METAB OLIC PANEL bilirubin, total 0.3 mg/dL 0.1-1. 2 normal Not Available [facility] [address] [place] [address], [address], 10/16/2021 18:01:02 10/17/19 22 10/16/2021 COMP. METAB OLIC PANEL alkaline phosphatase 103 U/L 30-121 normal Not Available [facility] [address] [place] [address], [address], 10/16/2021 18:01:02 10/17/19 22 10/16/2021 COMP. METAB OLIC PANEL AST 20 U/L 0-32 normal Not Available [facility] [address] [place] [address], [address], 10/16/2021 18:01:02 10/17/19 22 10/16/2021 COMP. METAB OLIC PANEL ALT 12 U/L 0-33 normal Not Available [facility] [address] [place] [address], [address], 10/16/2021 18:01:02 10/17/19 22 10/16/2021 COMP. METAB OLIC PANEL GFR 59 >= 60 abnormal Not Available [facility] [address] [place] [address], [address], 10/16/2021 18:01:02 10/17/19 22 10/16/2021 COMP. METAB OLIC PANEL GFR non- 51 >= 60 abnormal NOT E Chron ic kidzack y disea se is defin ed as kidne y damag e for more than 3 month s or a GFR less than 60 mL/mi n/1.7 3 m2 for great er than 3 month s. This calcu latio n has not been valid ated in pregn ant women . For pedia tric patie nts refer to Maria Luz Zendejas y Found ation [email or web address] :[email or web address] [email or web address] rg/pr ofess ional s/KDO QI/gf r_cal culat orPed Not Available [facility] [address] [place] [address], [address], 10/16/2021 18:01:02 10/17/19 22 10/16/2021 T4,FR EE T4,free 1.40 NG/dL 0.93-1 .70 normal Not Available [facility] [address] [place] [address], [address], 10/16/2021 18:05:44 10/17/19 22 10/16/2021 TSH TSH 1.020 uIU/m L 0.270- 4.200 normal Not Available [facility] [address] [place] [address], [address], 10/16/2021 18:05:46 10/17/19 22 10/16/2021 ESR, AUTOM ATED ESR, automated 39 mm 0-29 high Not Available [facility] [address] [place] [address], [address], 10/16/2021 18:15:09 10/17/19 22 10/16/2021 VITAM IN B12 vitamin B12 635 pg/mL 232-12 45 normal Not Available [facility] [address] [place] [address], [address], 10/16/2021 18:42:24 10/17/19 22 10/20/2021 VITAM IN B1 vitamin B1 <7 nmol/ L 8-30 low Vitam in suppl ement ation withi n 24 hours prior to blood draw may affec t the accur acy of resul ts. This test was devel oped and its brittani tical perfo rmanc e quincy cteri stics have been deter mined by [facility]. It has not been clear ed or appro carrie by the FDA. This assay has been valid ated pursu ant to the CLIA regul ation s and is used for clini shawn purpo ses. TEST PERFO RMED AT: [facility] [address] [facility] [address] Nevin MAYA Not Available [facility] [address] [place] [address], [address], 10/20/2021 18:15:19 10/24/19 22 10/23/2021 MRI, brain , w/o contr ast [facility] [address] [place] [address], [place] [address] Patimira t Name: ISMAEL Gimenez t : 951 Patien t 0 Orderi ng Provid er: MITALI MCADAMS EXAM DATE: 2021 EXAM: MR BRAIN W/O CONTRA ST HISTOR Y: 70-yea r-old female with dizzin ess and confus ion. COMPAR DELORIS: None. FINDIN GS: The ventri cles are symmet leoncio, and mildly enlarg ed. There is no mass, mass effect , or midlin e shift. There is no abnorm al extra- axial fluid, intrac ranial hemorr gala, or infarc tion. The diffus ion weight ed sequen david are normal . There are mild perive ntricu lar white matter change s. The legal intern al caroti d and basila r flow-v oids are normal . There is no mucosa l thicke naresh in the parana tanisha sinuse s. The patien t is status post bilate ral catara ct surger y. The mastoi d air cells are clear. IMPRES DANELLE: 1. There is mild diffus e cerebr al atroph y and white matter change s in the brain. No acute intrac ranial abnorm ality is identi fied. Interp reted By: Rashida padilla MD Electr onical ly Signed By: Rashida padilla MD on 022 8:51 AM [email or web address] [facility] [address] [place] [address], [address], 10/30/2021 11:47:55 Result Notes Documentation Provider Name and Address Organization Details Recorded Time Mri, Brain, W/o Contrast : [facility] [address] [place] [address] Patient Name: ISMAEL CARTER Patient : 1950 Patient Ordering Provider: MITALI MCADAMS EXAM DATE: 10/23/2021 EXAM: MR BRAIN W/O CONTRAST HISTORY: 70-year-old female with dizziness and confusion. COMPARISON: None. FINDINGS: The ventricles are symmetric, and mildly enlarged. There is no mass, mass effect, or midline shift. There is no abnormal extra-axial fluid, intracranial hemorrhage, or infarction. The diffusion weighted sequences are normal. There are mild periventricular white matter changes. The internal carotid and basilar flow-voids are normal. There is no mucosal thickening in the paranasal sinuses. The patient is status post bilateral cataract surgery. The mastoid air cells are clear. IMPRESSION: 1. There is mild diffuse cerebral atrophy and white matter changes in the brain. No acute intracranial abnormality is identified. Interpreted By: Emre Muro MD Aftab Lemon [facility] 10/30/2021 11:47:55 Problems Name Problem SNOMED Code Status Onset Date Resolution Date Notes Provider Name and Address Organization Details Recorded Time Neuropath y 674405618 Active 2015 From Automated Load;Prov ider: Mitali Mcadams;Sta tus: Active Not Available [facility] 3 18:07:53 Clinical finding Active 2015 From Automated Load;Prov ider: Mitali Mcadams;Sta tus: Active Not Available [facility] 3 18:07:53 Abnormal gait 52024803 Active 2017 Not Available [facility] 3 18:07:53 Impairmen t of balance 091146653 Active 2017 Not Available [facility] 3 18:07:53 Difficult y walking up stairs 792988994 Active 2017 Not Available [facility] 3 18:07:53 Muscle weakness 31771037 Active 2017 Not Available [facility] 3 18:07:53 Ankle and/or foot joint stiffness Active 2018 Not Available [facility] 3 18:07:53 Pain of left hip joint 01990783050 9100 Active 2020 Not Available [facility] 3 18:07:53 Problem Notes None recorded. Procedures Surgical History Date Name Laterality Status Provider Name and Address Organization Details Recorded Time 021 PT Therapeutic Exercise cancelled BYRON FREITAS, PT, DPT [address] [place], [address], [facility] 02/11/2021 07:47:14 021 PT Therapeutic Exercise completed BYRON FREITAS, PT, DPT [address] [place], [address], [facility] 01/21/2021 12:02:26 021 PT Evaluation - Moderate Complexity completed BYRON FREITAS, PT, DPT [address] [place], [address], [facility] 01/09/2021 11:16:19 021 PT Therapeutic Exercise completed BYRON FREITAS, PT, DPT [address] [place], [address], [facility] 01/09/2021 11:14:32 020 Tympanogram completed KERLINE JONES , AUD [address] [place], [address], [facility] 11/16/2019 14:08:22 020 Audiogram completed KERLINE JONES , AUD [address] [place], [address], [facility] 11/16/2019 14:08:14 020 cataract surgery completed Rekha Alvarado [facility] 11/16/2019 13:39:48 019 PT Gait Training completed BYRON FREITAS, PT, DPT [address] [place], [address], [facility] 12/30/2018 13:42:33 019 PT Manual Therapy completed BYRON FREITAS, PT, DPT [address] [place], [address], [facility] 12/30/2018 13:41:47 019 PT Evaluation - Moderate Complexity completed BYRON FREITAS, PT, DPT [address] [place], [address], [facility] 12/16/2018 12:57:15 019 PT Therapeutic Exercise completed BYRON FREITAS, PT, DPT [address] [place], [address], [facility] 12/16/2018 12:57:36 018 PT Functional Reporting, Mobility, Discharge Status completed BYRON FREITAS, PT, DPT [address] [place], [address], [facility] 03/04/2018 10:28:39 018 PT Functional Reporting, Mobility, Projected Status completed BYRON FREITAS, PT, DPT [address] [place], [address], [facility] 03/04/2018 10:28:36 018 PT Therapeutic Exercise completed BYRON FREITAS, PT, DPT [address] [place], [address], [facility] 03/04/2018 10:22:41 018 PT/OT Neuromuscular Re-Education completed BYRON FREITAS, PT, DPT [address] [place], [address], [facility] 02/02/2018 12:01:54 018 PT Therapeutic Exercise completed BYRON FREITAS, PT, DPT [address] [place], [address], [facility] 02/02/2018 12:02:43 018 PT/OT Neuromuscular Re-Education completed BYRON FREITAS, PT, DPT [address] [place], [address], [facility] 01/18/2018 12:00:55 018 PT Therapeutic Exercise completed BYRON FREITAS, PT, DPT [address] [place], [address], [facility] 01/18/2018 12:01:00 018 PT Functional Reporting, Mobility, Current Status completed BYRON FREITAS, PT, DPT [address] [place], [address], [facility] 01/04/2018 13:20:18 018 PT Functional Reporting, Mobility, Projected Status completed BYRON FREITAS, PT, DPT [address] [place], [address], [facility] 01/04/2018 13:20:15 018 PT Evaluation - Moderate Complexity completed BYRON FREITAS, PT, DPT [address] [place], [address], [facility] 01/04/2018 13:20:22 018 PT/OT Neuromuscular Re-Education completed BYRON FREITAS, PT, DPT [address] [place], [address], [facility] 01/04/2018 14:22:37 018 Tonsillectomy completed Yareli Lai [facility] 02/01/2018 15:28:58 018 Electromyography (EMG) with Nerve Conduction Study (NCV) completed nAn Ryan (Camille) [facility] 11/30/2017 11:57:23 017 Electromyography (EMG) with Nerve Conduction Study (NCV) completed Moises Nicole [facility] 02/04/2017 14:51:24 015 Back Surgery completed Yareli Lai [facility] 02/01/2018 15:28:58 014 Knee Surgery completed Yareli Lai [facility] 02/01/2018 15:28:58 013 Knee Surgery completed Yareli Lai [facility] 02/01/2018 15:28:58 012 Hernia Repair completed Yarelila nena Lai [facility] 02/01/2018 15:28:58 010 Gastrointestinal Surgery completed Yarelila nena Lai [facility] 02/01/2018 15:28:58 008 Ears/Nose/Throat Surgery completed Yarelila nena Lai [facility] 02/01/2018 15:28:58 990 [place] Teeth Extraction completed Yareli Lai [facility] 02/01/2018 15:28:58 Back Surgery completed Darnell Roberts [facility] 04/19/2017 10:19:39 Knee Surgery completed Darnell Armando [facility] 04/19/2017 10:20:08 Hysterectomy completed Darnell Armando [facility] 04/19/2017 10:20:17 cataract surgery completed Rekha Alvarado [facility] 11/16/2019 13:39:51 Back Surgery completed Kathi Alvarezlin [facility] 08/09/2023 14:31:49 Imaging Results None recorded. Procedure Notes None recorded. Medical Equipment None Reported. Allergies Allergen ID Allergen Name Allergen Category Reaction Reaction Severity Criticality Documentation Date Start Date Code Code System Note Provider Name and Address Organization Details Recorded Time 021402 amoxicill in trihydrat e medicatio n Not available Not available Not available 04/30/20162011 02449 8 RxNorm Comme nt: Creat ed By: Surya Gloria; Creat ed Date: 2011 1:42: 36 PM; Not Available [facility] 6 12:01:21 [id number] Entocort medicatio n Not available Not available Not available 04/30/20162011 71183 1 RxNorm Comme nt: Creat ed By: Surya Gloria; Creat ed Date: 2011 1:42: 17 PM; Not Available [facility] 6 14:21:10 [id number] sulindac medicatio n Not available Not available Not available 04/30/20162011 84319 RxNorm Comme nt: Creat ed By: Surya Gloria; Creat ed Date: 2011 1:42: 49 PM; Not Available [facility] 6 14:21:10 [id number] Reglan medicatio n Not available Not available Not available 05/01/20162011 9230 RxNorm Comme nt: Creat ed By: Surya Gloria; Creat ed Date: 2011 1:42: 27 PM; Not Available [facility] 6 08:22:17 [id number] Substance with sulfonami de structure and antibacte rial mechanism of action (substanc e) medicatio n Not available Not available Not available 05/01/20162011 38056 8003 SNOMED Comme nt: Creat ed By: Surya Gloria; Creat ed Date: 2011 1:43: 00 PM; Not Available [facility] 6 08:22:17 Medications Name Sig Start Date Stop Date Status Note LastModified by Organization Details LastModified Time furosemid e 40 mg tablet Daily 08/04 completed Frequenc y: daily;Me dication Descript ion: furosemi de; Dosage:1 ; Route:or al; refills: 0; Quantity :30 tablet Not Available Not Available Not Available Qvar 80 mcg/actua tion Metered Aerosol oral inhaler 2 SPRAYS BID 08/09 completed Medicati on Descript ion: beclomet hasone; Route:in halation ; refills: 0 Not Available Not Available Not Available venlafaxi ne 75 mg tablet Take 1 tablet twice a day by oral route. 04/21 completed Not Available Not Available Not Available Multiple Vitamin capsule Daily active Duration : 30 days;Garo quency: daily;Me dication Descript ion: multivit vee; Dosage:1 ; Route:or al; refills: 3; Quantity :100 capsule Not Available Not Available Not Available tizanidin e 4 mg tablet Take 1 tablet every 6 hours by oral route. 08/09 completed Not Available Not Available Not Available levetirac etam 500 mg tablet 1 in am and 4 hs 08/09 completed Not Available Not Available Not Available meloxicam 15 mg tablet Take 1 tablet every day by oral route. active Not Available Not Available No t Available omeprazol e 40 mg capsule,d elayed release Take 1 capsule every day by oral route. active Not Available Not Available No t Available Nasacort AQ 55 mcg nasal spray aerosol Daily 04/19 completed Instruct ions: each nostril, Quantity 16.5g;Fr equency: daily;Me dication Descript ion: triamcin olone nasal; Dosage:2 ; Route:na tanisha; refills: 5; Quantity :1 spray Not Available Not Available Not Available potassium 99 mg tablet Take by oral route. active Not Available Not Available No t Available gabapenti n 300 mg capsule Take 1 capsule by oral route. 11/29 completed Not Available Not Available Not Available omeprazol e 20 mg capsule,d elayed release Two times a day 11/15 completed Duration : 90 days;Ins truction s: 2, bid;Freq uency: bid;Medi cation Descript ion: omeprazo le; Dosage:2 ; Route:or al; refills: 3; Quantity :360 delayed release capsule Not Available Not Available Not Available allopurin ol 300 mg tablet Take 1 tablet every day by oral route. active Not Available Not Available No t Available magnesium 250 mg tablet Take by oral route. active Not Available Not Available No t Available furosemid e 20 mg tablet Take 1 tablet by oral route. active Not Available Not Available No t Available gabapenti n 100 mg capsule Take 2 capsules 3 times a day by oral route for 90 days, for neuropat hy. 2024 active Not Available Not Available Not Avai lable azelastin e 137 mcg (0.1 %) nasal spray [place] 2 sprays twice a day by intranas al route. active Not Available Not Available No t Available fluticaso ne propionat e 50 mcg/actua tion nasal spray,luis alberto pension [place] 1 spray twice a day by intranas al route. 04/21 completed Not Available Not Available Not Available Benicar 20 mg tablet Daily 04/19 completed Duration : 30 days;Garo quency: daily;Me dication Descript ion: olmesart an; Dosage:1 ; Route:or al; refills: 0; Quantity :30 tablet Not Available Not Available Not Available iron 325 mg (65 mg iron) tablet Take 1 tablet every day by oral route. active Not Available Not Available No t Available Benicar HCT 20 mg-12.5 mg tablet 2017 active Not Available Not Available Not Avai lable Benicar HCT 40 mg-25 mg tablet Daily 04/19 completed Duration : 30 days;Garo quency: daily;Me dication Descript ion: hydrochl orothiaz lm-olme sartan; Route:or al; refills: 0; Quantity :30 tablet Not Available Not Available Not Available rosuvasta tin 10 mg tablet Take 1 tablet every day by oral route. active Not Available Not Available No t Available gabapenti n 100 mg tablet 04/19 completed Medicati on Descript ion: gabapent in; Route:or al; refills: 0; Quantity :30 Not Available Not Available Not Available aspirin 11/29 completed Medicati on Descript ion: aspirin; refills: 0 Not Available Not Available Not Available Calcium-V itamin D active Medicati on Descript ion: calcium- vitamin D; Route:or al; refills: 0; Quantity :otc tablet Not Available Not Available Not Available neomycin 08/20 completed Not Available Not Available Not Available Fish Oil active Not Available Not Avai lable Not Available ketorolac 08/20 completed Not Available Not Available Not Available prednisol one 08/20 completed Not Available Not Available Not Available Fluticaso ne Propionat e (Nasal) 11/29 completed 1spray twice a day Not Available Not Available Not Available montel[address] 1 qd active Not Available Not Available Not Available Glucosami ne 08/04 completed Not Available Not Available Not Available Vitamin D3 active Medicati on Descript ion: cholecal ciferol; Route:or al; refills: 0 Not Available Not Available Not Available Konsyl Fiber 11/29 completed Instruct ions: 1/4 tsp bid;Medi cation Descript ion: psyllium ; Route:or al; refills: 0 Not Available Not Available Not Available Zyrtec active Not Available Not Availa ble Not Available Miralax Two times a day 11/29 completed Instruct ions: 17gm in 8oz fluids QTY QS;Frequ ency: bid;Medi cation Descript ion: polyethy gonzalo glycol 3350; Dosage:a s directed ; Route:or al; refills: 0; Quantity :1 powder for reconsti tution Not Available Not Available Not Available Super B Complex + C active Not Available Not Available Not Available Keppra XR 500 mg tablet,ex tended release 2024 active Not Available Not Available Not Avai lable Keppra XR 750 mg tablet,ex tended release 04/19 completed Medicati on Descript ion: levetira cetam; Route:or al; refills: 0 Not Available Not Available Not Available Astepro 205.5 mcg (0.15 %) nasal spray 11/29 completed Medicati on Descript ion: azelasti ne nasal; Route:na tanisha; refills: 0 Not Available Not Available Not Available Zenpep 20,000 unit-68,0 00 unit-109, 000 unit capsule,d elayed release before meals 2015 active Instruct ions: 1, ac, 1, with meals, 20,000 unit capsule; Frequenc y: ac;Medic ation Descript ion: pancreli pase; Dosage:1 ; Route:or al; refills: 11; Quantity :180 delayed release capsule Not Available Not Available Not Available Vagifem 10 mcg vaginal tablet 08/09 completed Medicati on Descript ion: estradio l topical; Route:va ginal; refills: 0 Not Available Not Available Not Available Probiotic 04/21 completed Not Available Not Available Not Available Konsyl (sugar) 1 tbsp per day 08/09 completed Not Available Not Available Not Available Xhance active Not Available Not Availa ble Not Available Vitals Date Recorded Body weight Heart rate Oxygen saturation Oxygen saturation in Arterial blood by Pulse oximetry Systolic blood pressure Diastolic blood pressure Provider Name and Address Organization Details Last Updated DateTime 4 80619.1 4 g 78 /min 96 % 96 % 142 mm[Hg] 86 mm[Hg] Kathi Alvarezlin [facility] 4 14:29:33 Date Recorded Body weight Heart rate Oxygen saturation Oxygen saturation in Arterial blood by Pulse oximetry Systolic blood pressure Diastolic blood pressure Provider Name and Address Organization Details Last Updated DateTime 5 08104.2 9 g 77 /min 98 % 98 % 132 mm[Hg] 84 mm[Hg] Kathi Parham [facility] 5 13:00:50 Date Recorded Body height Body mass index (BMI) Body weight Provider Name and Address Organization Details Last Updated DateTime 10/16/2021 162.56 cm 31.8 kg/m2 67391.59 g Nae Thomasholz [facility] 10/16/2021 16:03:18 Date Recorded Body height Body mass index (BMI) Body weight Provider Name and Address Organization Details Last Updated DateTime 04/21/2021 162.56 cm 32.1 kg/m2 69699.77 g Nae Thomasholz [facility] 04/21/2021 11:40:54 Date Recorded Body height Body mass index (BMI) Body weight Systolic blood pressure Diastolic blood pressure Provider Name and Address Organization Details Last Updated DateTime 04/21/2022 162.56 cm 31.8 kg/m2 50823.69 g 124 mm[Hg] 76 mm[Hg] Luisneville Santizo [facility] 2 10:59:11 Social History Question Answer Notes LastModified by Organizat ion Details LastModified Time Tobacco Smoking Status [facility] 10:30:55 Marital Status Informatio n not available 04/19/2017 What Was The Date Of Your Most Recent Tobacco Screening? 04/21/2022 [email or web address] Information not available 04/21/2022 How Much Tobacco Do You Smoke? No [email or web address] Information not available 04/19/2017 Sex: Female Functional Status Question Answer Note LastModified by Organizat ion Details LastModified Time What is your level of alcohol consumption? None [email or web address] Information not available 04/19/2017 What is your occupation? Retired [employer] Information not available 04/19/2017 Mental Status None recorded. Family History Relationship Description Onset Age of this Age Resolved Age Notes LastModified by Organization Details LastModified Time Mother Hypertensive disorder 42 Not available 2018 08:48:43 Mother Family history of malignant neoplasm Not available 2018 08:48:43 Mother Diabetes mellitus 44 69 Not available 2017 15:28:35 Mother Obesity Not available 08/03/2018 08:48:43 Sister Hypertensive disorder 40 Not available 2018 08:48:43 Sister Arthritis 45 Not availabl e 08/03/2018 08:48:43 Brother Hypertensive disorder 46 Not available 2018 08:48:43 Brother Arthritis 50 Not availab le 08/03/2018 08:48:43 Father Heart disease 50 64 Not available 2017 15:28:35 Father Arthritis 45 Not availabl e 08/03/2018 08:48:43 Father Hypercholest erolemia 40 64 Not available 2017 15:28:35 Father Disorder of back 42 Not available 2018 08:48:43 Father Cerebrovascu lar accident 40 Not available 08:48:43 Maternal Grandfather Cerebrovascu lar accident Not available 15:28:35 Maternal Grandmother Diabetes mellitus 60 Not available 2018 08:48:43 Paternal Grandfather Hypertensive disorder 50 70 Not available 2017 15:28:35 Paternal Grandmother Rheumatoid arthritis 35 50 Not available 2017 15:28:35 Paternal Grandmother Arthritis 35 50 Not available 15:28:35 Son Hypercholest erolemia 10 Not available 2018 08:48:43 Maternal Aunt Diabetes mellitus 47 62 Not available 2017 15:28:35 Paternal Aunt Hypertensive disorder 45 Not available 2018 08:48:43 Medical History Condition Response Coronary Artery Disease N Gout Y Hyperthyroidism N Head Trauma/Injury Y Emphysema N Hernia N Depression Y COPD N Lung Disease N Hypothyroidism N Glaucoma N Pacemaker N Anxiety Disorder Y Muscle, Joint, or Bone Problems N Arthritis Y Serious Illness or Injuries N Cancer N Stroke N Neck Injury N Leg or Foot Ulcers N High Cholesterol Y Neurologic Disorder N Liver Disease N Organ Transplant N Rheumatoid Arthritis N Headaches N Kidney Disease N Allergies/Hayfever Y Heart Problems N Parkinson's Disease N Alzheimer's N Migraines Y Thyroid Problems N Carpel Tunnel N Anemia N Ulcers N Heart Attack ([place]) N Neurological Problems Y Diabetes N Bleeding Disorder N Seizures/Epilepsy N Tuberculosis N AIDS/HIV N Asthma Y Peripheral Vascular Disease N Reflux/GERD N Hepatitis N Neuropathy N Heart Disease N Pulmonary Embolism N Hypertension Y Osteoporosis N Gynecological HistoryNo gynecological history recorded. Obstetrics History GPAL:G 0 P 0 0 0 0 Immunizations Vaccine Type Date Status Note Provider Nam e and Address Organization Details Recorded Time influenza, unspecified formulation 7 completed Not Available [facility] 06/04/2023 18:07:54 pneumococcal, unspecified formulation 7 completed Not Available [facility] 06/04/2023 18:07:54 Influenza, split virus, quadrivalent, preservative 0 completed Not Available [facility] 06/04/2023 18:07:54 SARS-COV-2 (COVID-19) vaccine, UNSPECIFIED 1 completed Not Available [facility] 06/04/2023 18:07:54 SARS-COV-2 (COVID-19) vaccine, UNSPECIFIED 1 completed Not Available [facility] 06/04/2023 18:07:54 Past Encounters Encounter ID Performer Location Encounter Start Date Encounter Closed Date Diagnosis/Indication Diagnosis SNOMED-CT Code Diagnosis ICD10 Code Diagnosis Note [id number] JO-ANN MCHUGH MD NEUROLOGY [facility] CLOSED [address] [place] [address] 02/04/2017 13:43:14 02/04/2017 14:52:04 Lumbar radiculopathy 279172400 M54.16 Chronic right L5 radiculopa thy. Medial mary ntar nerve compression 973208013 G57.63 Bilateral medial plantar neuropathi es. [id number] MITALI MCADAMS MD NEUROLOGY [facility] [address] [place] [address] 04/19/2017 09:51:55 04/19/2017 12:01:11 Epilepsy 27301464 G40.909 Pain in le ft lower limb 625693803 M79.605 Long-term drug therapy 761515377 Z79.025 [id number] MITALI MCADAMS MD NEUROLOGY [facility] [address] [facility] [address] [place] [address] 11/29/2017 14:38:20 11/29/2017 17:20:48 Right foot drop 1039522063 15997 M21.371 Left foot drop 718778871 1 15809 M21.921 [id number] MITALI MCADAMS MD NEUROLOGY [facility] [address] 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 Erythrocyt e sedimentation rate above reference range 668977743 R70.0 Bilateral foot drop 1563 513905 5622766 M21.371 M21.372 Foot-drop gait 95105648 R26.89 At [facility] risk for falls 583394973 Z91.81 Epilepsy 41681451 G40.90 9 Low back pain 357450889 M54.5 Overweight 371467688 E66 .3 [id number] BYRON FREITAS, PT, DPT PHYSICAL THERAPY / HAND THERAPY [facility] [address] [place] [address] 01/04/2018 12:55:02 01/04/2018 15:12:19 Abnormal gait 80615284 R26.9 Impairment of balance 38 8394689 R26.89 Difficulty walking up stairs 976324335 R26.2 Muscle weakness 65365413 M62.81 [id number] BYRON FREITAS, PT, DPT PHYSICAL THERAPY / HAND THERAPY [facility] [address] [place] [address] 01/18/2018 10:59:22 01/18/2018 16:07:23 Muscle weakness 27888307 M62.81 Abnormal gait 71111670 R 26.9 Difficulty walking up stairs 014377676 R26.2 Impairment of balance 38 1147175 R26.89 [id number] BYRON FREITAS, PT, DPT PHYSICAL THERAPY / HAND THERAPY [facility] [address] [address] 02/02/2018 10:57:43 02/02/2018 13:18:35 Abnormal gait 58859143 R26.9 Impairment of balance 38 5740177 R26.89 Difficulty walking up stairs 669400811 R26.2 Muscle weakness 56455144 M62.81 [id number] MITALI MCADAMS MD NEUROLOGY [facility] [address] [facility] [address] [place] [address] 02/02/2018 14:49:58 02/02/2018 16:56:40 Impairment of balance 138356750 R26.89 Neuropathy 175230936 G62 .9 Abnormal gait 74487036 R 26.9 Bilateral foot drop 1563 148091 1404777 M21.371 M21.372 Epilepsy 54597926 G40.90 [id number] BYRON FREITAS, PT, DPT PHYSICAL THERAPY / HAND THERAPY [facility] [address] [address] 03/04/2018 09:36:45 03/04/2018 10:32:11 Abnormal gait 23075053 R26.9 Difficulty walking up stairs 759421801 R26.2 Impairment of balance 38 6847906 R26.89 Muscle weakness 37772209 M62.81 [id number] MITALI MCADAMS MD NEUROLOGY [facility] [address] [facility] [address] [place] [address] 08/04/2018 10:02:14 08/04/2018 11:10:00 Epilepsy 29519567 G40.909 Paresthesia 27667459 R20 .2 Right comm on peroneal nerve palsy 2484608063 81876 G57.31 Left commo n peroneal nerve palsy 0709691450 22310 G57.32 [id number] BYRON FREITAS, PT, DPT PHYSICAL THERAPY / HAND THERAPY [facility] [address] [place] [address] 12/16/2018 10:11:48 12/16/2018 13:32:47 Ankle and/or foot joint stiffness 442623318 M25.673 Muscle weakness 64419051 M62.81 Abnormal gait 42170863 R 26.9 [id number] BYRON FREITAS, PT, DPT PHYSICAL THERAPY / HAND THERAPY [facility] [address] [place] [address] 12/30/2018 11:18:49 12/30/2018 13:57:05 Ankle and/or foot joint stiffness 914110532 M25.673 Abnormal gait 99481213 R 26.9 Muscle weakness 92086579 M62.81 [id number] MITALI MCADAMS MD NEUROLOGY [facility] [address] [place] [address] 08/03/2019 09:15:16 08/03/2019 10:49:37 Epilepsy 22213728 G40.909 Paresthesia 73883593 R20 .2 [id number] NELLA AVILA MD [place] [facility] [address] [place] [address] 11/16/2019 12:26:01 11/16/2019 14:48:42 Sensorineural hearing loss of bilateral ears 720689604 H90.3 Bilateral earache 879007 003 H92.03 Bilateral tinnitus 51365 05230 102 H93.13 R>L Headache 26132534 R51 Migraine 51445256 G43.90 9 hx [id number] NAN LARRY [place] [facility] [address] [place] [address] 11/16/2019 13:50:33 11/16/2019 14:09:26 Sensorineural hearing loss of bilateral ears 212202232 H90.3 Bilateral earache 720999 003 H92.03 [id number] MITALI MCADAMS MD NEUROLOGY [facility] [address] [place] [address] 08/20/2020 10:39:57 08/20/2020 11:45:45 Neuropathy 290331162 G62.9 Epilepsy 60606954 G40.90 9 Abnormal gait 46998841 R 26.9 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 939232709 G40.009 Long-term current use of drug therapy 496338295 Z79.899 Abnormal g ait due to muscle weakness 849341485 M62.81 [id number] BYRON FREITAS, PT, DPT PHYSICAL THERAPY / HAND THERAPY [facility] [address] [place] [address] 01/09/2021 09:40:50 01/09/2021 14:10:52 Pain of left hip joint 7499702465 29397 M25.552 Muscle weakness 21163357 M62.81 Abnormal gait 43866834 R 26.9 [id number] BYRON FREITAS, PT, DPT PHYSICAL THERAPY / HAND THERAPY [facility] [address] [place] [address] 01/21/2021 10:44:59 01/21/2021 13:50:19 Pain of left hip joint 4769734529 19848 M25.552 Muscle weakness 02157555 M62.81 Abnormal gait 68406418 R 26.9 [id number] MITALI MCADAMS MD NEUROLOGY CLOSED [address] [place] [address] 1 04/21/2021 10:55:59 04/21/2021 12:22:07 Impairment of balance 789272643 R26.89 Pain of le ft hip joint 7260885537 57369 M25.552 Neuropathy 839831400 G62 .9 Abnormal gait 33363692 R 26.9 Muscle weakness 80801342 M62.81 Idiopathic peripheral neuropathy 14266435 G60.9 Epilepsy 36978962 G40.90 9 Long-term current use of drug therapy 589845309 Z79.899 Restless legs 25291367 G 25.81 Headache 66127072 R51.9 Abnormal g ait due to impairment of balance 544351223 R26.89 [id number] MITALI MCADAMS MD NEUROLOGY [facility] [address] [place] [address] 10/16/2021 14:45:57 10/16/2021 16:54:21 Muscle weakness 61505576 M62.81 Neuropathy 068778747 G62 .9 Poor short -term memory 383309456 R41.3 Tired all the time 33361 2008 R53.82 Intermitte nt confusion 719184856 R41.0 Epilepsy 66031095 G40.90 9 Long-term current use of drug therapy 065286959 Z79.899 Sensory neuropathy 53287 005 G62.9 [id number] MITALI MCADAMS MD NEUROLOGY [facility] [address] [place] [address] 1 04/21/2022 10:33:03 05/04/2022 09:24:53 Muscle weakness 13553992 M62.81 Neuropathy 013112753 G62 .9 Epilepsy 70392847 G40.90 9 Long-term current use of drug therapy 806250010 Z79.899 Abnormal gait 35071957 R 26.9 [id number] MITALI MCADAMS MD NEUROLOGY [facility] [address] [place] [address] 08/09/2023 14:19:20 08/17/2023 04:04:29 Epilepsy 33852138 G40.909 Long-term current use of drug therapy 832489305 Z79.899 [id number] MARTIN ANDREWS PA-C NEUROLOGY [facility] [address] [place] [address] 1 08/09/2024 12:45:31 08/10/2024 05:42:10 Neuropathy 247320651 G62.9 Long-term current use of drug therapy 923635546 Z79.899 Health Concerns Section Related Observation LastModified by Organization Detai ls LastModified Time None Recorded Concern Status LastModified by Organization Details LastModified Time None Recorded Advance Directives Directive None Recorded Payers Insurance Date Sequence Insurance Name Policy Number Policy Osborne Covered Member ID Osborne Member ID Guarantor Name 08/06/2024 1 [facility] (PPO) [id number] Ismael Carter [id number] Ismael Carter 09/05/2024 2 FOR LIFE ( - MEDICARE SUPPLEMENT) Ismael Carter [id number] Ismael Carter 04/16/2022 1 [facility] (MEDICARE REPLACEMENT/ ADVANTAGE - PPO) [id number] Ismael Carter [id number] Ismael Carter Notes Date Note Type Note Provider Name and Address Organization Details Recorded Time 1 text/htm l Recheck 70 year old woman she says she's overall doing well gabapentin 100 mg x 3 tid is helpful for neuropathy in feet this improves pins and needle sensation seizure free with brand name keppra XR 500 mg x 1 am and 4 hs last seizure was approx 2005 sudden headaches in the summerchanged arthritis meds and tizanidineheadaches have resolved MITALI [facility]ADAMS [facility] [place], [address], [facility] 04/21/2021 12:14:42 2 text/htm l Recheck 70 year old woman episodes of dizziness, disorientation she says levetiracetam level 103 Keppra XR 500 x 1 pill and 4 hs free of seizure x 16 years she says she's overall doing well gabapentin 100 mg x 3 tid is helpful for neuropathy in feet this improves pins and needle sensation seizure free with brand name keppra XR 500 mg x 1 am and 4 hs last seizure was approx 2005 recently began having light headedness and disorientation would like to review blood work from PCP I discussed the blood level ov levetiracetam range widely in all patients and are not reliable I said I think the current blood level is OK and does not require change loss of appetite and taste is off increasingly tiredsays this is very unusual says disorientationfeels like her body is lagging behindoccasional confusion RBC level was low says she sleeps well MITALI MCADAMS MD [facility] [place], [address], [facility] 10/19/2021 10:15:48 2 text/htm l Recheck 71 year old womanEpilepsyfree of seizureNeuropathyMuscle Weakness Gabapentin 100 mg x 3 tid is helpful for neuropathy in feet Pt has been seizure free with brand name keppra XR 500 mg x 1 am and 4 hs Pt stated medications are helping Pt stated no seizures since last visit Pt stated she is still having the issue of pins and needles in her feet Pt stated she only gets the pins and needles feeling in her feet when going to bed Pt is overall doing well MITALI MCADAMS MD [facility] [place], [address], [facility] 04/21/2022 12:06:05 4 text/htm l Recheck for Cloazhjk42 year old woman from [place] in [facility]. EpilepsyThe patient reports that she has had a good year and is seizure free. Seizures are controlled with Keppra XR 500mg. Current Medications:Keppra XR 500mg x1 tablet in the morning and 4 tablets, HS MITALI MCADAMS MD [address] [place], [address], [facility] 08/16/2023 09:37:46 5 text/htm l 73 yo here today for 1y seizure recheck. Last saw Dr. Mcadams on 24: 1. Epilepsy, onset at approximately late 20's 2. Seizure free on medication, her last seizure was July. Disease controlled by Keppra XR 500mg (brand name) 1 tablet in the morning and 4 tablets at bedtime Brand name Keppra only - this was the plan per Dr. Mcadams because it has worked well for her.Also on gabapentin 100mg 2-3 cap TID for paresthesia from Dr. Mcadams No seizure since last visit, confirms last seizure on 07/2005.She confirms Keppra XL 500mg 1in am, 4 QHS. Today she reports that she uses the gabapentin 100mg 1cap TID and then 3 QHSSome tingling in her toes.Really bothers her only at night, even if she lays down during the dayShe has noted sugar in the evening makes symptoms worse, dehydration makes symptoms worseWalks with a cane - trouble with left leg - had a left drop foot about 6-7 years ago - now more of an ankle mobility issue. MARTIN ANDREWS PA-C [address] [place], [address], [facility] 08/09/2024 14:13:11 OBGyn Episode No OBEpisode recorded.
--- OUTSIDE RECORDS SUMMARY | 2024-12-05 10:04 | XMS_ITS | Clinical Summary ---
Author Organization [employer] ([place], [place], [place], [place]) Address [address] [place] [address] Care Team Providers Care Break And Load Operator Name Role Phone Gary Roberts MD Primary Care Provider [phone] Allergies Active Allergy Reactions Criticality Noted Date [...] Date Delfin rded Speak language other than Solomon Islander at home Not on file 06/18/2023 Want [...] Description 12/20/2024 1:00 PM EDT Office Visit [facility] Bariatric Services [address] [facility] [address] [place] [address] Shahida Orellana MD [address] [facility] [address] [place] [address] Health Maintenance Due Date Last Done Comments CT Colonography 1950 Colonoscopy 1950 Colorectal Cancer Screening 1950 DXA SCAN 1950 FOBT/FIT 1950 Fit-DNA (Cologuard) 1950 Sigmoidoscopy 1950 Depression Screening (12+) 1962 Hepatitis C Screening 1968 DTAP/TDAP/TD VACCINES (1 - Tdap) 1969 Breast Cancer Screening 1990 Shingles Vaccine (Zoster) (1 of 2) 2000 Medicare Initial AWV G0438 06/08/2023 Tobacco Cessation Counseling and Screening (12+) 11/17/2023 11/16/2022 COVID-19 VACCINE ( - 2023-2 5 season) 2024 03/11/2022, 03/12/2021, 07/22/2020, Additional history exists Falls Risk Screening 06/07/2024 Influenza Vaccine (Season Ended) 2025 04/03/2021, 03/11/2020, 02/23/2020, Additional history exists Respiratory Syncytial Virus (RSV) Adult or (1 - 1-dose 75+ series) 2025 Pneumococcal 50+ years Completed 04/20/2023, 2016 Insurance [place] [id number] [facility] MEDICARE ADVANTAGE Care Teams Break And Load Operator Relationship Specialty Start Date End Date Gary Roberts MD [address] [place] [address] PCP - General Family Medicine 11/16/22
[2024-12-05 10:51] LABS: Hematocrit 37.0 % (37.0-47.0); Hemoglobin 11.0 g/dL (12.2-16.2); Immature Granulocytes % 0.4 %; Mean Corpuscular HGB Conc 29.7 g/dL (31.8-35.4); Mean Corpuscular Hemoglobin 26.1 pg (27.0-31.2); Mean Corpuscular Volume 87.9 fl (81-99); Nucleated Red Blood Cells % 0 %; Platelet Count 299 K/mm3 (142-424); Red Blood Count 4.21 M/mm3 (4.20-5.40); Red Cell Distribution Width-SD 46.4 fL; White Blood Count 10.1 K/mm3 (4.8-10.8)
[2024-12-05 11:42] LABS: Alanine Aminotransferase 27 U/L (12-78); Albumin Level 4.2 g/dl (3.5-5.0); Albumin/Globulin Ratio 1.7 (1.1-1.8); Alkaline Phosphatase 73 U/L (38-126); Anion Gap 12.0 mEq/L (5-15); Aspartate Amino Transferase 42 U/L (14-36); Bilirubin,Total 0.5 mg/dl (0.2-1.3); Blood Urea Nitrogen 19 mg/dl (7-17); Calcium 9.2 mg/dl (8.4-10.2); Carbon Dioxide 30 mmol/L (22.0-30.0); Chloride 100 mmol/L (98-107); Cholesterol 164 mg/dl (140-200); Creatinine,Serum 0.80 mg/dl (0.52-1.04); Estimated Glomerular Filt Rate 70 ml/min (>60); GFR (African American) 85 ML/MIN (>60); Globulin 2.5 g/dL (1.3-3.2); Glucose 103 mg/dl (74-100); HDL Cholesterol 63 mg/dl (40-60); Potassium 4.0 mmoL/L (3.5-5.1); Sodium 138 mmol/L (136-145); Total Protein,Serum 6.7 g/dl (6.3-8.2); Triglycerides 130 mg/dl (30-150); Uric Acid 4.8 mg/dl (2.5-6.2)
[2024-12-05 12:23] LABS: Iron 55 ug/dL (37-170)
== END 2024-12-05 23:59 | disposition home or self-care (01) ==
LOC: LAB 10:01
PROVIDERS: PCP Family Medicine; Visit Provider Family Medicine
DX: I10 Essential (primary) hypertension (principal); E78.5 Hyperlipidemia, unspecified; D50.9 Iron deficiency anemia, unspecified
CPT/HCPCS: 36415; 80053; 80061; 80177; 83540; 84550; 85025

== ENCOUNTER 2024-12-26 10:31 | Outpatient (CLI) | payer MEDICARE, OTHER, SELFPAY ==
--- OUTSIDE RECORDS SUMMARY | 2024-10-26 14:00 | XMS_ITS | Encounter Summary ---
[facility] Organization [facility] Address [address] [place] [address] Care Team Providers Care Special Events Planner Name Role Phone Gary Roberts MD Primary Care Provider Reason for Referral * Diagnostic Imaging (Routine) - Closed Specialty Diagnoses / Procedures Referred By Kenya hastings Referred To Contact Radiology Diagnoses Abnormal mammogram Procedures Mammo Diagnostic Digital Tomosynthesis Right With CAD Martha Hutchinson MD [address] [place] [address] Phone: tel: fax: Referral ID Status Reason Start Date Expiration Date Visits Re quested Visits Authorized [id number] Closed 04/24/2024 04/24/2025 1 1 Reason for Visit * Diagnostic Imaging (Routine) - Closed Specialty Diagnoses / Procedures Referred By Kenya hastings Referred To Contact Radiology Diagnoses Abnormal mammogram Procedures Mammo Diagnostic Digital Tomosynthesis Right With Martha Lee MD [address] [place] [address] Phone: tel: fax: Referral ID Status Reason Start Date Expiration Date Visits Re quested Visits Authorized [id number] Closed 04/24/2024 04/24/2025 1 1 Encounter Details Date Type Department Care Team (Late st Contact Info) Description 10/26/2024 2:00 PM EDT - 10/26/2024 11:59 PM EDT Hospital Encounter [facility] [address] [facility] [place] [address] Noemi Aguila MD [address] [facility] [address] [place] [address] Abnormal mammogram Discharge Disposition: Home or Self Care Social History Tobacco Use Types Packs/Day Years Used Date Smoking Tobacco: Never Smokeless Tobacco: Never Alcohol Use Standard Drinks/Week Comments No 0 (1 standard drink = 0.6 oz pur e alcohol) SOCIAL/OCCASIONAL Comments No Sex and Gender Information Value Date Recorded Sex Assigned at Not on file Legal Sex Female 10:06 AM EDT Gender Identity Not on file Sexual Orientation Straight 01/23/2022 3: 53 PM EDT documented as of this encounter Medications at Time of Discharge albuterol sulfate HFA 108 (90 Base) MCG/ACT inhaler INHALE TWO PUFFS BY MOUTH EVERY 4 HOURS NEEDED. MAY USE 2 puffs 20 TO 30 minutes BEFORE physical exertion. 01/08/2021 allopurinol (ZYLOPRIM) 300 MG tablet 07/24/2016 aspirin 81 MG EC tablet Take 1 tablet by mouth Daily. azelastine (ASTELIN) 0.1 % nasal spray Use in each nostril as directed cetirizine (zyrTEC) 10 MG tablet Take 10 mg by mouth Daily. 01/25/2021 Cholecalciferol 50 MCG (2000 UT) capsule Take 1 capsule by mouth Daily. clobetasol (TEMOVATE) 0.05 % ointment Apply 1 Application topically to the appropriate area as directed 2 (Two) Times a Day. 30 g 1 03/15/2024 denosumab (PROLIA) 60 MG/ML solution prefilled syringe syringe Inject 1 mL under the skin into the appropriate area as directed 1 (One) Time. estradiol (VAGIFEM) 10 MCG tablet vaginal tabletIndication s:Atrophy of vagina Insert 1 tablet into the vagina 3 (Three) Times a Week. 12 tablet 12 02/28/2024 ferrous sulfate 325 (65 FE) MG tablet Take 1 tablet by mouth Daily. furosemide (LASIX) 20 MG tablet Take 1 tablet by mouth Daily As Needed. gabapentin (NEURONTIN) 100 MG capsule Take 1 capsule by mouth 3 (Three) Times a Day. Patient also takes 300 mg at bedtime. 600 mg daily. levETIRAcetam XR (Keppra XR) 500 MG 24 hr tablet Keppra XR 500 mg tablet,extended release TAKE 1 TABLET BY MOUTH EVERY DAY IN THE MORNING AND TAKE 4 TABLETS EVERY DAY AT BEDTIME DIRECTED meloxicam (MOBIC) 7.5 MG tablet Take 1 tablet by mouth Daily. montelukast (SINGULAIR) 10 MG tablet Take 10 mg by mouth Daily. 11/13/2019 multivitamin tablet tablet Take 1 tablet by mouth Daily. olmesartan (BENICAR) 20 MG tablet Take 1 tablet by mouth Daily. 12/31/2022 [place]-3 Fatty Acids (fish oil) 1000 MG capsule capsule Take 1 capsule by mouth Daily With Breakfast. omeprazole (priLOSEC) 20 MG capsule Take 1 capsule by mouth Daily. 12/15/2022 PATIENT SUPPLIED ALLERGY INJECTION Inject under the skin 1 (One) Time Per Week. psyllium (Konsyl Daily Fiber) 100 % pack packet Take 1 packet by mouth Daily. Qvar RediHaler 80 MCG/ACT inhaler INHALE TWO PUFFS BY MOUTH EVERY TWELVE HOURS --SHAKE WELL BEFORE USE-- --RINSE MOUTH AFTER USE-- 01/22/2021 rosuvastatin (CRESTOR) 10 MG tablet Take 10 mg by mouth Daily. 10/19/2019 Xiidra 5 % ophthalmic solution Administer 1 drop to both eyes 2 (Two) Times a Day. 02/14/2024 ZENPEP 15927-36066 units capsule delayed-release particles TAKE 1 CAPSULE BY MOUTH BEFORE A MEAL (THREE TIMES DAILY) 11/07/2019 documented as of this encounter Plan of Treatment Upcoming Encounters Date Type Department Care Team (Late st Contact Info) Description 03/19/2025 2:10 PM EDT Office Visit [facility] [address] [address] Martha Hutchinson MD [address] [address] documented as of this encounter Procedures Procedure Name Priority Date/Time Associated Diagnosis Comments MAMMO DIAGNOSTIC DIGITAL TOMOSYNTHESIS RIGHT W CAD Routine 10/26/2024 3:09 PM EDT Abnormal mammogram documented in this encounter Results * Mammo Diagnostic Digital Tomosynthesis Right With CAD (10/26/2024 3:09 PM EDT) Anatomical Region Laterality Modality Breast Right Mammography 10/26/2024 3:08 PM EDT Impressions 10/26/2024 4:49 PM EDT Interval resolution of previously seen mass attributed to resolved fat necrosis. ACR BI-RADS CATEGORY: 2, BENIGN RECOMMENDATION: Patient may return to routine annual screening mammography. CAD was utilized. The standard false-negative rate of mammography is between 10% and 25%. Complex patterns or increased breast density will markedly elevate the false-negative rate of mammography. A letter, in lay terminology, with the results of this exam was given to the patient at the time of the visit. 10/26/2024 4:49 PM by Shelly Carmona MD on Narrative 10/26/2024 4:49 PM EDT RIGHT DIGITAL DIAGNOSTIC MAMMOGRAM WITH TOMOSYNTHESIS CLINICAL HISTORY: Short-term interval follow-up for probable area of fat necrosis within the lateral right breast TECHNIQUE: 2D and tomosynthesis CC and MLO views were obtained. COMPARISON: Prior diagnostic exam from 04/21/2024 MAMMOGRAM FINDINGS: The breasts are predominantly adipose tissue. There is been interval resolution of the previously seen oval mass which is consistent with resolved fat necrosis. There are no new masses, areas of distortion or suspicious microcalcifications in either breast. us Noemi Aguila MD IMG MAMMOGRAPHY ORDERABLES Final Result documented in this encounter Visit Diagnoses Diagnosis Abnormal mammogram Abnormal mammogram, unspecified documented in this encounter Care Teams Special Events Planner Relationship Specialty Start Date End Date Gary Roberts MD [address] [facility] [address] [place] [id number] PCP - General 11/11/15 documented as of this encounter
--- OUTSIDE RECORDS SUMMARY | 2024-11-01 13:40 | XMS_ITS | Encounter Summary ---
Author Organization [facility] Address [address] [place] [address] Care Team Providers Care Lamp Shade Sewer Name Role Phone Gary Roberts MD Primary Care Provider [phone]- [phone] Reason for Visit * Reason Comments Shoulder Pain Left foot Hip Pain * Consultation (Routine) - Closed Specialty Diagnoses / Procedures Referred By Contact Referred To Contact Physical Medicine and Rehabilitation Diagnoses Trochanteric bursitis, left hip Fortino Anne, ALLISON [address] [place] [address] Phone: tel:[phone] fax:[phone] [facility] [address] [address] Phone: tel: fax: Referral ID Status Reason Start Date Expiration Date V isits Requested Visits Authorized [id number] Closed Specialty Services Required 06/21/2024 12/21/2025 1 1 Encounter Details Date Type Department Care Team (Late st Contact Info) Description 11/01/2024 1:40 PM EDT Office Visit [facility] [address] [address] Jace Valero, DO [address] [place] [address] Trochanteric bursitis, left hip (Primary [...] drink first t figueroa in the morning (EYE-DINKEY MOTOR OPERATOR) to steady your nerves or to get [...] PT recently for the foot/gait changes at [facility] Injection Therapies: Left GTB CSI 06/2024 - continued benefit Pertinent Imaging: Pelvic xrays 06/21/24 Review of Systems 14 point ROS negative other than mentioned above in HPI. Medical Histories Past Medical: Medical History[1] Past Surgical: Surgical History[2] Allergies: Allergies[3] Family History: Family History[4] Family history reviewed with patient and not pertinent. Social History: Patient lives in [place], [place]. Lives in a(n) house with 2 stairs to enter and [facility] Patient is and lives at home with spouse. 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 [...] Mondragon DATE OF EXAM: 01/15/2022 Patient No: [id number] Physician: Yuko Date of : 1950 Past [...] error, please notify the sender immediately at [phone] and permanently delete theoriginal report and destroy [...] prior to entering the patient care room, [id number] time with the patient for complaints, history [...] Date BACK SURGERY N/A Back Surgery from [facility] CHOLECYSTECTOMY 01/24/2010 EYE SURGERY Jan 2019 & December 2019 GALLBLADDER SURGERY N/A Gallbladder Surgery from [facility] HERNIA REPAIR HIP SURGERY 04/12/2018 HYSTERECTOMY N/A Hysterectomy from [facility] JOINT REPLACEMENT 03/17/2013; 11/15/2013; 04/12/2018 KNEE SURGERY 03/17/2013; 11/15/2013 LAMINECTOMY 07/03/14 ORTHOPEDIC SURGERY 07/03/2014 SLEEVE GASTROPLASTY N/A Gastrectomy Sleeve from [facility] SPINAL CORD STIMULATOR IMPLANT 04/05/2019 SPINAL FUSION 07/03/2014 SPINE SURGERY 04/04/2019 TONSILLECTOMY N/A Tonsillectomy from [facility] TRIGGER POINT INJECTION WRIST SURGERY 10+ years [...] Marco Reynolds Mendoza Arthritis Brother Marco Reynolds Mendoza Rheumatologic disease Maternal Grandmother Deysi Jones Mendoza [...] mouth daily., Disp: 30 capsule, Rfl: 5 Yeyyrzt-Cmvszqhdp-Lhkurto D (CALCIUM 1200+D3 PO), Take 1 tablet [...] by mouth daily., Disp: , Rfl: pancrelipase, Rad-Qind-Lyjj, (Zenpep) [id number] units capsule delayed-release particles capsule, 3 (three) [...] Info) Description 03/28/2025 11:00 AM EDT Evaluation [facility] Bone & Mineral Metabolism [address] [facility], [address] [place] [address] Chapo Santoro, PharmD [address] [facility] [address] [place] [address] 03/29/2025 10:40 AM EDT Office Visit [facility] Nephrology, Bone & Mineral Metabolism [address] [facility], [address] [place] [address] Edinson Reyes MD [address] [place] [address] documented as of this encounter Visit [...] documented as of this encounter Care Teams Lamp Shade Sewer Relationship Specialty Start Date End Date Gary Roberts MD [address] [place] [address] PCP - General 10/18/20 documented as of this encounter
--- OUTSIDE RECORDS SUMMARY | 2024-12-12 05:15 | XMS_ITS ---
Author Organization [facility] Address [address] [place] [id number] Care Team Providers Care Fur Comber Name Role Phone Samy Roberts Primary Care Provider Allergies Allergen (clinical drug ingredient) Drug/Non Drug Allergy documented on EMR Reaction Allergy Type Onset Date Status amoxicillin Amoxicillin Unknown Drug Allergy Act alexis budesonide Budesonide Unknown Drug Allergy Activ e cefdinir Cefdinir does not help Drug Allergy Act alexis nabumetone Nabumetone Headaches Drug Allergy Activ e metoclopramide Reglan anxiety Drug Allergy Ac tive sulindac Sulindac chest tightness Drug Allergy A ctive angiotensin-convertin g enzyme inhibitor (FN) FABRICE Inhibitors cough Drug Allergy Active amlodipine amLODIPine swelling Drug Allergy Activ e Substance with sulfonamide structure and antibacterial mechanism of action (substance) Sulfa Antibiotics Unknown Drug Allergy Active REASON FOR VISIT checkup, f/u labs and Annual Wellness visit Medications Medication SIG (Take, Route, Frequency, Duration) Notes Start Date End Date Status Furosemide 20 MG 1 tablet Orally once daily; Duration: 90 days Active Allopurinol 300 mg TAKE ONE TABLET BY MOUTH EVERY DAY; Duration: 90 Active Zenpep 12200-17382 UNIT 1 cap(s) Orally Three times a day Active Nystatin-Triamcino lone 009071-6.1 UNIT/GM 1 application Externally Twice a day 04/28/2024 Active CPAP SUPPLIES DIRECTED *Please review for potential replacement for e-prescription and drug interaction check* 10/20/2022 Active CPAP SUPPLIES DIRECTED 2017 Act alexis CareTouch CPAP & BIPAP Hose 1 DIRECTED 08/18/2021 Active Keppra XR 500 MG 1 q am, 4 q hs orally Active Omeprazole 40 MG 1 cap(s) orally once a day Active Albuterol Sulfate HFA 108 (90 Base) MCG/ACT 1 puff as needed Inhalation every 4 hrs Active Vagifem 10 MCG 1 tab(s) intravaginally 3 times a week Active Azelastine HCl 137 MCG/SPRAY 2 spray(s) intranasally 2 times a day Active Fish Oil 1200 MG 1 cap(s) orally once daily Active Gabapentin 100 MG 2 caps orally qid Active Multiple Vitamin - 1 cap(s) orally once a day; Duration: 30 day(s) Active Calcium 600 + Minerals 600-200 MG-UNIT 2 tab(s) orally once a day; Duration: 30 day(s) Active Olmesartan Medoxomil 20 mg take 1 tablet orally once a day; Duration: 90 days Active Olopatadine HCl 0.1 % 1 drop into affected eye Ophthalmic Twice a day Active Prolia 60 MG/ML as directed Subcutaneous every 6 months Active Aspirin 81 81 MG 1 tablet Orally Once a day; Duration: 30 day(s) Active Rosuvastatin Calcium 10 mg TAKE ONE TABLET BY MOUTH EVERY DAY; Duration: 90 Active ZyrTEC Allergy 10 MG 1 tab(s) orally once a day Not-Taking Xhance 93 MCG/ACT 1 spray(s) in each nostril 2 times a day Not-Taking Montelukast Sodium 10 MG 1 tab(s) orally once a day Not-Taking Qvar RediHaler 40 MCG/ACT 2 puff(s) inhaled 2 times a day Not-Taking Problems Problem Type SNOMED Code ICD Code Onset Dates Problem Status W/U Status Risk Notes Problem BMI 30+ - obesity (385317011) BMI 32.0-32.9,a dult (Z68.32) Active confirmed Vital Signs Weight 194.0 lbs 12/12/2024 Blood pressure systolic 132 mm Hg 12/13/19 25 Blood pressure diastolic 70 mm Hg 025 Heart Rate 86 /min 12/12/2024 Height 64.50 in 12/12/2024 BMI 32.78 kg/m2 12/12/2024 Encounters Encounter Location Date Provider Diagnosis [facility] [address] [facility] [address] [place] [id number] 12/12/2024 Samy Roberts Adult general medica l examination Z00.00 ; HTN (hypertension) I10 ; Dyslipidemia E78.5 ; Hyperuricemia E79.0 ; Iron deficiency anemia, unspecified iron deficiency anemia type D50.9 ; Seizure disorder G40.909 ; Gastroesophageal reflux disease without esophagitis K21.9 ; Seasonal allergies J30.2 ; CHER (obstructive sleep apnea) G47.33 and BMI 32.0-32.9,adult Z68.32 Assessments Encounter Date Diagnosis (ICD Code) Assessment Notes Treatment Notes Treatment Clinical Notes Section Notes 12/12/2024 Adult general medical examination (ICD-10 - Z00.00) Patient instructed to return to office Annually for Annual Wellness Visits to include annual screenings of Pain assessment, Functional Ability assessment, Cognitive Ability assessment, Fall Risk assessment, Depression screening and Bladder control screening. 12/12/2024 HTN (hypertension) (ICD-10 - I10) 12/12/2024 Dyslipidemia (ICD-10 - E78.5) 12/12/2024 Hyperuricemia (ICD-10 - E79.0) 12/12/2024 Iron deficiency anemia, unspecified iron deficiency anemia type (ICD-10 - D50.9) 12/12/2024 Seizure disorder (ICD-10 - G40.909) 12/12/2024 Gastroesophageal reflux disease without esophagitis (ICD-10 - K21.9) 12/12/2024 Seasonal allergies (ICD-10 - J30.2) 12/12/2024 CHER (obstructive sleep apnea) (ICD-10 - G47.33) 12/12/2024 BMI 32.0-32.9,adult (ICD-10 - Z68.32) Plan Of Treatment Medication Medication Name Sig Start Date Stop Date Notes Olmesartan Medoxomil 20 mg take 1 tablet orally once a day; Duration: 90 days Rosuvastatin Calcium 10 mg TAKE ONE TABL ET BY MOUTH EVERY DAY; Duration: 90 Treatment Notes Assessment Notes Adult general medical examination Patien t instructed to return to office Annually for Annual Wellness Visits to include annual screenings of Pain assessment, Functional Ability assessment, Cognitive Ability assessment, Fall Risk assessment, Depression screening and Bladder control screening. Next Appt Details Follow Up: 6 Months, Reason: Progress Notes * RILEY CARTER:1950 ( 74 yo F)Acc No.[id number]:12/12/2024 Annual Wellness Visit Patient: ISMAEL HENLEY Provider: Samy Roberts M.D. :1950 A ge:73 Y S ex:Female Date:12/12/2024 Address:[address] [id number] Subjective: * Chief Complaints: * 1 . checkup, f/u labs and Annual Wellness visit. * HPI: H PI: Patient is here today for a check up , to f/u on labs and?a Medicare Annual Wellness Visit, see labs performed at [facility] 12/05/2024 in patient chart. Pt states she is having some itchy lesions on her legs and hands. Pt states this started about 2 weeks ago .? Denies rash. Pt states she has had her labs done at [facility] and would like to discuss the results. * ROS: D ERMATOLOGY: no R soto. n o H hubert. G ASTROENTEROLOGY: no N ausea. n o V omiting. n o D iarrhea.? O PTHALMOLOGY: Negative for d enies vision issues. U ROLOGY: no D ifficulty urinating. n o B lood in urine. * Medical History: S eizure disorder, Seasonal allergies, Hypertension, Sleep Apnea, Osteoarthritis, Lumbar Spinal Stenosis, GERD, Anemia, Depression, Hyperlipidemia. * Surgical History: D &C , Vocal Cord Callus Removal 1998, Lt Wrist Cyst Removal , Colonoscopy 11/2006, Tonsillectomy, Adenoidectomy 12/2007, Epidural Shot 06/04/2008, Cholecystectomy 12/31/2009, Lumbar Epidural Steroid Injection 08/28/2010, Back surgery 01/30/2011, MORRO/BSO - Dr. Quezada 12/07/2011, Hernia Repair 02/23/2012, Negative Heart Cath 02/2013, Lt Total Knee Replacement 03/17/2013, Rt Total Knee Replacement 11/15/2013, [facility]-Lumbar Fusion (L3,L4,L5) - Dr. Gipson 06/2014, Gastric Sleeve 03/26/17, Lt Eye Cataract- Dr. Zaman 02/2019, T11-L5 spinal fusion, Dr. Wen quintero 04/05/2019, Rt Cataract 10/2019, Back Surgery/ Rods placed by Dr. Carver - 07/22/2022. * Hospitalization/Major Diagno stic Procedure: S ranorman 1978 ,1995. * Family History: F ather: 64 yrs, [place]. M other: 69 yrs, [place]. P aternal Grand Father: . P aternal Grand Mother: . M aternal Grand Father: . M aternal Grand Mother: . 1 brother(s) , 1 sister(s) - healthy. 2 son(s) - healthy. . * Social History: C URRENT TOBACCO USE S moking Status: Patient does NOT smoke. C affeine: yes, frequency:. Exercise: yes. Home smoke detector use: yes. Marital Status: . New since last visit: none. Past smoking status: no, Smoking status: Does not smoke, Former Smoker: No. Occup. exposure: none. Recreational drug use: no. Alcohol: no, Type: , Frequency: ,Years: , Determination:. Sexually active: yes. Travel ouside [place]: no. * Medications: T aking Olopatadine HCl 0.1 % Solution 1 drop into affected eye Ophthalmic Twice a day , Taking Prolia 60 MG/ML Solution Prefilled Syringe as directed Subcutaneous every 6 months , Taking Aspirin 81 81 MG Tablet Delayed Release 1 tablet Orally Once a day , Taking Calcium 600 + Minerals 600-200 MG-UNIT Tablet 2 tab(s) orally once a day , Taking Multiple Vitamin - Capsule 1 cap(s) orally once a day , Taking Gabapentin 100 MG Capsule 2 caps orally qid , Taking Vagifem 10 MCG Tablet 1 tab(s) intravaginally 3 times a week , Taking Azelastine HCl 137 MCG/SPRAY Solution 2 spray(s) intranasally 2 times a day , Taking Fish Oil 1200 MG Capsule 1 cap(s) orally once daily , Taking CPAP SUPPLIES DIRECTED , Taking CareTouch CPAP & BIPAP Hose MACHINE AND SUPPLIES 1 DIRECTED , Taking Keppra XR 500 MG Tablet Extended Release 24 Hour 1 q am, 4 q hs orally , Taking Omeprazole 40 MG Capsule Delayed Release 1 cap(s) orally once a day , Taking Albuterol Sulfate HFA 108 (90 Base) MCG/ACT Aerosol Solution 1 puff as needed Inhalation every 4 hrs , Taking CPAP SUPPLIES DIRECTED , Notes to Pharmacist: *Please review for potential replacement for e-prescription and drug interaction check*, Taking Zenpep 39110-48353 UNIT Capsule Delayed Release Particles 1 cap(s) Orally Three times a day , Taking Nystatin-Triamcinolone 315562-4.1 UNIT/GM Cream 1 application Externally Twice a day , Taking Rosuvastatin Calcium 10 mg Tablet TAKE ONE TABLET BY MOUTH EVERY DAY , Taking Furosemide 20 MG Tablet 1 tablet Orally once daily , Taking Allopurinol 300 mg Tablet TAKE ONE TABLET BY MOUTH EVERY DAY , Taking Olmesartan Medoxomil 20 mg Tablet take 1 tablet orally once a day , Not-Taking ZyrTEC Allergy 10 MG Tablet 1 tab(s) orally once a day , Not-Taking Xhance 93 MCG/ACT Exhaler Suspension 1 spray(s) in each nostril 2 times a day , Not-Taking Montelukast Sodium 10 MG Tablet 1 tab(s) orally once a day , Not-Taking Qvar RediHaler 40 MCG/ACT Aerosol Breath Activated 2 puff(s) inhaled 2 times a day , Discontinued Magic Mouth Wash - - 1 or 2 tsp swish and spit every 4 to 6 hours , Discontinued Fluconazole 150 MG Tablet 1 tablet Orally once daily , Discontinued Cefuroxime Axetil 500 MG Tablet 1 tablet Orally Two times a day , Discontinued Zithromax Z-Devan 250 MG Tablet 2 pills first day then one daily for 4 days orally as directed , Medication List reviewed and reconciled with the patient * Allergies: A moxicillin, FABRICE Inhibitors: cough, Sulindac: chest tightness, Reglan: anxiety, Sulfa Antibiotics, Budesonide, Cefdinir: does not help, amLODIPine: swelling - Side Effects, Nabumetone: Headaches - Side Effects. Objective: * Vitals: W t: 194.0, Temp: 97.8, BP: 132/70, HR: 86, Nurse: REZA, Ht: 64.50, BMI:32.78. * Examination: G eneral Examination: General Appearance: N AD. H EENT: u nremarkable.?Oral cavity: n o lesions, mucosa moist and WNL, no erythema. N luh: s upple, no lymphadenopathy. C hest: n ormal shape and expansion. H eart: R SR. L ungs: c lear to auscultation. N eurologic Exam: I ntact, gait normal. S kin: T here are few purpuric lesions on her arms. No rash or excoriations.. P eripheral pulses: n ormal (2+) bilaterally. E xtremities: n o leg edema. * Physical Examination: G ENERAL: Pain Assessment: P ain level: 7, on a scale of 0-10 (with 10 being extreme pain). F unctional Status Assessment: P atient response to question of how often physical health interferes with daily activities: Frequently. Able to perform ADLs-including meal preparation, grocery shopping, housework, laundry, taking medications or handling finances. Cognitive Status: alert and oriented. Ambulation Status: Fully ambulatory. F all Risk Assessment: I ndependant in ambulation, adequate lighting in home. Patient has NOT fallen or had trouble walking within the past 12 months. D epression Screening: Windy anderson depressed mood or anxiety. Describes emotional health as: calm. B ladder Control Screening: D monica problems. Assessment: * Assessment: 1. A dult general medical examination - Z00.00 (Primary) 2 . H TN (hypertension) - I10 3 . D yslipidemia - E78.5 4 . H yperuricemia - E79.0 5 . I aidan deficiency anemia, unspecified iron deficiency anemia type - D50.9 6 . S eizure disorder - G40.909 7 . G astroesophageal reflux disease without esophagitis - K21.9 8 . S easonal allergies - J30.2 ? 9 . O SA (obstructive sleep apnea) - G47.33 1 0. B LA 32.0-32.9,adult - Z68.32 Plan: * Treatment: 2. H TN (hypertension) Refill Olmesartan Medoxomil Tablet, 20 mg, take 1 tablet, orally, once a day, 90 days, 90, Refills 1. 3. D yslipidemia Refill Rosuvastatin Calcium Tablet, 10 mg, TAKE ONE TABLET BY MOUTH EVERY DAY, 90, 90 Tablet, Refills 1. * Procedure Codes: G 0439 ANNUAL WELLNESS VST; PPS SUBSQT VST, G2211 Complex e/m visit add on, 1090F PRES/ABSN URINE INCON ASSESS, 3288F FALL RISK ASSESSMENT DOCD, 1170F FXNL STATUS ASSESSED, 1159F MED LIST DOCD IN RCRD, 1003F LEVEL OF ACTIVITY ASSESS, 3017F COLORECTAL CA SCREEN DOC REV, 1036F TOBACCO NON-USER, G8510 NEG SCR Depression PT NOT ELIG F/U/PLN DOC, G8950 PREHTN/HTN BP DOC INDCD F/U DOC, G8752 MOST RECENT SYSTOLIC BP < 140MM HG, G8754 MOST RECENT DIASTOLIC BP < 90MM HG * Preventive Medicine: Counseling: E motional health: D iscussed ways to improve socialization. B ladder control: M ethods of controlling or managing leakage of urine discussed. E xercise: Patient advised to start, increase or maintain level of exercise/physical activity. I njury prevention: F all prevention discussed. Discussed need for cane/walker. Potential trip hazards discussed. Immunizations: P neumococcal u p to date. I nfluenza u p to date, recommended seasonally. Screening / Special Tests: M ammogram R ecent history:, recommended today. C olonoscopy R ecent history:06/24/2020, diverticulosis, hemorrhoids, repeat 10 years. B one mineral Density R ecent history:, recommended. * Follow Up: 6 Months * Images: Billing Information: * Visit Code: 00748 Office Visit, Est Pt., Level 4. Modifiers: 25 * Procedure Codes: G0439 ANNUAL WELLNESS VST; PPS SUBSQT VST. G2211 Complex e/m visit add on. 1090F PRES/ABSN URINE INCON ASSESS. 3288F FALL RISK ASSESSMENT DOCD. 1170F FXNL STATUS ASSESSED. 1159F MED LIST DOCD IN RCRD. 1003F LEVEL OF ACTIVITY ASSESS. 3017F COLORECTAL CA SCREEN DOC REV. 1036F TOBACCO NON-USER. G8510 NEG SCR Depression PT NOT ELIG F/U/PLN DOC. G8950 PREHTN/HTN BP DOC INDCD F/U DOC. G8752 MOST RECENT SYSTOLIC BP < 140MM HG. G8754 MOST RECENT DIASTOLIC BP < 90MM HG. * Electronic signature of Samy Roberts MD on 12/26/2024 at 10:35 AM EDT Sign off status: Pending * Provider: Samy Roberts M.D. Date: 0 12/12/2024 Generated for Rose varela/Aida/Franitting on: 0 12/26/2024 10:35 AM EDT History and Physical Notes * HPI (History of Present Illness) Category Sub-Category Detail Notes Category Not es HPI Patient is here today for a [facility] k up , to f/u on labs and a Medicare Annual Wellness Visit, see labs performed at [facility] 12/05/2024 in patient chart. Pt states she is having some itchy lesions on her legs and hands. Pt states this started about 2 weeks ago . Denies rash. Pt states she has had her labs done at [facility] and would like to discuss the results Physical Examination Category Sub-Category Detail Notes Section Note s GENERAL Pain Assessment: Pain level: 7, on a scale of 0-10 (with 10 being extreme pain) Functional Status Assessment: Patient re sponse to question of how often physical health interferes with daily activities: Frequently. Able to perform ADLs-including meal preparation, grocery shopping, housework, laundry, taking medications or handling finances.Cognitive Status: alert and oriented.Ambulation Status: Fully ambulatory Fall Risk Assessment: Independant in amb ulation, adequate lighting in home. Patient has NOT fallen or had trouble walking within the past 12 months Depression Screening: Denies depressed m ood or anxiety. Describes emotional health as: calm Bladder Control Screening: Denies proble ms Examination Category Sub-Category Detail Notes Category Not es General Examination HEENT: unremarkable Heart: RSR Lungs: clear to auscultatio n Extremities: no leg edema General Appearance: NAD Skin: There are few purpur ic lesions on her arms. No rash or excoriations. Neurologic Exam: Intact, gait normal Neck: supple, no lymphaden opathy Oral cavity: no lesions, mucosa m oist and WNL, no erythema Peripheral pulses: normal (2+) bilatera lly Chest: normal shape and exp ansion
--- OUTSIDE RECORDS SUMMARY | 2024-12-14 11:30 | XMS_ITS ---
[facility] Address [address] [place] [id number] Care Team Providers Care Coal Crusher Operator Name Role Phone Samy Roberts Primary Care [...] (substance) Sulfa Antibiotics Unknown Drug Allergy Active Reason For Referral Reason [facility] physical therapy nurse apy; Percy Diagnosis 1 Muscle strain of rig ht upper back, initial encounter (S29.012A) [facility] Referring Provider First Name Samy Villafana Referring Provider Last Name Armando Referring Provider Speciality Family Pra ctice Referred Provider Physical Therapy, . Referred Provider Specialty Physical The rapist General Notes Lisseth Delgado 2024 04:09:26 PM > faxed to [facility] Referral Priority Routine REASON FOR VISIT Back Pain Medications Medication SIG (Take, Route, Frequency, Duration) Notes Start Date End Date Status Rosuvastatin Calcium 10 mg TAKE ONE TABLET BY MOUTH EVERY DAY; Duration: 90 Active Allopurinol 300 mg TAKE ONE TABLET BY MOUTH EVERY DAY; Duration: 90 Active Furosemide 20 MG 1 tablet Orally once daily; Duration: 90 days Active Nystatin-Triamcino lone 691875-3.1 UNIT/GM 1 application Externally Twice a day 04/28/2024 Active Zenpep 73266-86383 UNIT 1 cap(s) Orally Three times a day Active CPAP SUPPLIES DIRECTED *Please review for potential replacement for e-prescription and drug interaction check* 10/20/2022 Active Albuterol Sulfate HFA 108 (90 Base) MCG/ACT 1 puff as needed Inhalation every 4 hrs Active Omeprazole 40 MG 1 cap(s) orally once a day Active Keppra XR 500 MG 1 q am, 4 q hs orally Active CareTouch CPAP & BIPAP Hose 1 DIRECTED 08/18/2021 Active Gabapentin 100 MG 2 caps orally qid Active CPAP SUPPLIES DIRECTED 2017 Act alexis Fish Oil 1200 MG 1 cap(s) orally once daily Active Azelastine HCl 137 MCG/SPRAY 2 spray(s) intranasally 2 times a day Active Vagifem 10 MCG 1 tab(s) intravaginally 3 times a week Active Multiple Vitamin - 1 cap(s) orally once a day; Duration: 30 day(s) Active Calcium 600 + Minerals 600-200 MG-UNIT 2 tab(s) orally once a day; Duration: 30 day(s) Active Aspirin 81 81 MG 1 tablet Orally Once a day; Duration: 30 day(s) Active Prolia 60 MG/ML as directed Subcutaneous every 6 months Active Olopatadine HCl 0.1 % 1 drop into affected eye Ophthalmic Twice a day Active ZyrTEC Allergy 10 MG 1 tab(s) orally once a day Not-Taking Olmesartan Medoxomil 20 mg take 1 tablet orally once a day; Duration: 90 days Active Qvar RediHaler 40 MCG/ACT 2 puff(s) inhaled 2 times a day Not-Taking Montelukast Sodium 10 MG 1 tab(s) orally once a day Not-Taking Xhance 93 MCG/ACT 1 spray(s) in each nostril 2 times a day Not-Taking Problems Problem Type SNOMED Code ICD Code Onset Dates Problem Status W/U Status Risk Notes Problem Seasonal allergic rhinitis, unspecified trigger (J30.2) Active confirmed Vital Signs Weight 192.8 lbs 12/14/2024 Blood pressure systolic 120 mm Hg 12/15/19 25 Blood pressure diastolic 70 mm Hg 025 Heart Rate 94 /min 12/14/2024 Height 64.50 in 12/14/2024 BMI 32.58 kg/m2 12/14/2024 Encounters Encounter Location Date Provider Diagnosis [facility] [address] [facility] [address] [place] [id number] 12/14/2024 Samy Roberts Muscle strain of rig ht upper back, initial encounter S29.012A and Seasonal allergic rhinitis, unspecified trigger J30.2 Assessments Encounter Date Diagnosis (ICD Code) Assessment Notes Treatment Notes Treatment Clinical Notes Section Notes 12/14/2024 Muscle strain of right upper back, initial encounter (ICD-10 - S29.012A) Alternate heat and ice. Instructed on gentle stretching exercises. 12/14/2024 Seasonal allergic rhinitis, unspecified trigger (ICD-10 - J30.2) Plan Of Treatment Treatment Notes Assessment Notes Muscle strain of right upper back, initial encounter Alternate heat and ice. Instructed on gentle stretching exercises. Referrals Referral Date Details 12/14/2024 12/14/2024, [facility] therapy; [facility] Next Appt Details Follow Up: prn, Reason: Medications Administered Medication Instructions Date of Administration Dosage Notes allergy 12/14/2024 0.05 mL allergy 12/14/2024 Progress Notes * SADIA CARTERLEAB:1950 ( 74 yo F)Acc No.[id number]:12/14/2024 Extended Visit Patient: ISMAEL HENLEY Provider: Samy Roberts M.D. :1950 A ge:73 Y S ex:Female Date:12/14/2024 Address:[address] [place], [place] [address] Subjective: * Chief Complaints: * 1 . Back Pain. * HPI: U pper back: She presents with complaints of pain in her right upper back for the past 3 days. It has been insidious in onset but gradually getting worse. She recalls no specific injury. It does not keep her awake at night. It causes some stiffness in her neck as it pulls into the trapezius on rotation to the right. No radicular symptoms. H PI: c/o Patient is here today for P t would like her allergy shots today as well. * ROS: D ERMATOLOGY: no R soto. n o H hubert. G ASTROENTEROLOGY: no N ausea. n o V omiting. n o D iarrhea.? U ROLOGY: no D ifficulty urinating. n [...] Replacement 03/17/2013, Rt Total Knee Replacement 11/15/2013, [facility]Lumbar Fusion (L3,L4,L5) - Dr. Gipson 06/2014, Gastric Sleeve 03/26/17, Lt Eye Cataract- Dr. Zaman 02/2019, T11-L5 spinal fusion, Dr. Wen quintero 04/05/2019, Rt Cataract 10/2019, Back Surgery/ Rods placed by Dr. Carver - 07/22/2022. * Hospitalization/Major Diagno stic Procedure: S eizures 1978 ,1995. * Family History: F ather: 64 yrs, MD. M other: 69 yrs, DM. P aternal [...] , Taking CPAP SUPPLIES DIRECTED , [facility] B[facility] Hose MACHINE AND SUPPLIES [...] e-prescription and drug interaction check*, Taking Zenpep 83132-99024 UNIT Capsule Delayed Release Particles 1 cap(s) Orally Three times a day , Taking Nystatin-Triamcinolone 093714-5.1 UNIT/GM Cream 1 application Externally Twice a day , Taking Furosemide 20 MG Tablet 1 tablet Orally once daily , Taking Allopurinol 300 mg Tablet TAKE ONE TABLET BY MOUTH EVERY DAY , Taking Rosuvastatin Calcium 10 mg Tablet [...] puff(s) inhaled 2 times a day , Medication List reviewed and reconciled with the patient * Allergies: A moxicillin, FABRICE Inhibitors: cough, Sulindac: chest tightness, Reglan: anxiety, Sulfa Antibiotics, Budesonide, Cefdinir: does not help, amLODIPine: swelling - Side Effects, Nabumetone: Headaches - Side Effects. Objective: * Vitals: W t: 192.8, Temp: 97.8, BP: 120/70, HR: 94, Nurse: bari, Ht: 64.50, BMI:32.58. * Examination: G eneral Examination: General Appearance: N AD. N luh: H ead forward posturing. Moderate thoracic kyphosis. No bony tenderness of the C-spine. There is tenderness along the right lower trapezius to the medial scapula. Range of motion of the neck is nearly full with some increased pain on rotation to the right. Assessment: * Assessment: 1. M uscle strain of right upper back, initial encounter - S29.012A (Primary) 2 . S easonal allergic rhinitis, unspecified trigger - J30.2 Plan: * Treatment: * Therapeutic Injections: allergy : 0.05 mL (Route: Subcutaneous) given by BARI Li on subcutaneus (Seasonal allergic rhinitis, unspecified trigger) allergy (Route: Subcutaneous) given by BARI Li on subcutaneus (Seasonal allergic rhinitis, unspecified trigger) * Procedure Codes: 9 5115 IMMUNOTHERAPY, ONE INJECTION * Follow Up: p rn * Images: Billing Information: * Visit Code: 47049 Office Visit, Est Pt., Level 3. * Procedure Codes: 90461 IMMUNOTHERAPY, ONE INJECTION. * Electronic signature of Samy Roberts MD on 12/26/2024 at 10:35 AM EDT Sign off status: Pending * Provider: Samy Roberts M.D. Date: 12/14/2024 Generated for Rose varela/Aida/Franitting on: 12/26/2024 10:35 AM EDT History and Physical Notes * HPI (History of Present Illness) Category Sub-Category Detail Notes Category Not es HPI Patient is here today for Pt wou ld like her allergy shots today as well Examination Category Sub-Category Detail Notes Category Not es General Examination General Appearance: NAD Neck: Head forward posturi ng. Moderate thoracic kyphosis. No bony tenderness of the C-spine. There is tenderness along the right lower trapezius to the medial scapula. Range of motion of the neck is nearly full with some increased pain on rotation to the right Consultation Request Notes Referral Date Referring Provider Referred Provider Not es 12/14/2024 Samy Roberts Physical Therapy, . Dra dill physical therapy; [facility]
--- OUTSIDE RECORDS SUMMARY | 2024-12-20 13:00 | XMS_ITS | Encounter Summary ---
Author Organization [email or web address] ([place], [place], [place], [place]) Address [address] [place] [address] Care Team Providers Care Breastfeeding Peer Counselor Name Role Phone Gary Roberts MD Primary Care Provider [phone] Reason for Visit * Reason Comments Follow-up 8 yrs post op Encounter Details Date Type Department Care Team (Late st Contact Info) Description 12/20/2024 1:00 PM EDT Office Visit [facility]ariat[facility] [address] [address] Shahida Orellana MD [address] [facility] [address] [place] [address] S/P gastric sleeve procedure (Primary Dx); Disorder of iron metabolism; Vitamin D deficiency; Vitamin B deficiency; Weight gain Social History Tobacco Use Types Packs/Day Years Used Date Smoking Tobacco: Never Smokeless Tobacco: Never Tobacco Cessation:Counseling Given: Not Answered Alcohol Use Standard Drinks/Week Comments Never 0 (1 standard drink = 0.6 oz pur e alcohol) Family and Community Support Answer Silvestre e Recorded Help with Day to Day Activities Not on file 06/18/2023 Feeling Lonely or Isolated Not on file 06/18 Educational Attainment Answer Date Deflin rded Speak language other than Emirati at home Not on file 06/18/2023 Want [...] on file Sexual Orientation Not on file documented as of this encounter Last Filed Vital Signs Vital Sign Reading Time Taken Comments Blood Pressure 140/72 12/20/2024 1:21 PM EDT Pulse 64 12/20/2024 1:21 PM EDT Temperature - - Respiratory Rate - - Oxygen Saturation - - Inhaled Oxygen Concentration - - Weight 88.1 kg (194 lb 3.2 oz) 12/20/2024 1:21 P M EDT Height - - Body Mass Index 31.34 11/16/2022 2:06 PM EDT documented in this encounter Progress Notes * Shahida Orellana MD - 12/20/2024 1:00 PM EDT Subjective: Fani Mondragon is a 73 y.o. female. Chief Complaint Patient presents with Follow-up 8 yrs post op Pt reports tolerating diet no n/v. Reports not getting adequate fluids- 24 ozs and 1 protein supplements Taking vitamins as directed. Taking Mariano Adv Info given No complaints per pt. Up about 20 lbs since last appt 2 yrs ago. Wanting to lose 10-15 lbs. Electronically signed by Syl Johnson RN - 12/20/2024 - 1:21 PM EDT Doing well. No dysphagia. No reflux. Off PPIs. No complaints or concerns. Weight gain- 20lbs since last visit 2 years ago. Wants to lose 10-15lbs. Objective: BP (!) 140/72 Pulse 64 Wt 88.1 kg (194 lb 3.2 oz) BMI 31.34 kg/m?? Physical Exam Vitals and nursing note reviewed. Constitutional: General: She is not in acute distress. Appearance: Normal appearance. HENT: Head: Normocephalic and atraumatic. Nose: Nose normal. Mouth/Throat: Mouth: Mucous membranes are moist. Pharynx: Oropharynx is clear. Eyes: Extraocular Movements: Extraocular movements intact. Cardiovascular: Rate and Rhythm: Normal rate. Pulmonary: Effort: Pulmonary effort is normal. Abdominal: General: There is no distension. Palpations: Abdomen is soft. Musculoskeletal: General: No deformity. Cervical back: Neck supple. Skin: General: Skin is warm and dry. Coloration: Skin is not jaundiced. Neurological: General: No focal deficit present. Mental Status: She is alert and oriented to person, place, and time. Psychiatric: Mood and Affect: Mood normal. Behavior: Behavior normal. Assessment: 1. S/P gastric sleeve procedure 2. Disorder of iron metabolism 3. Vitamin D deficiency 4. Vitamin B deficiency 5. Weight gain Plan: Diagnoses and all orders for this visit: S/P gastric sleeve procedure - CBC with automated diff; Future - Comprehensive metabolic panel; Future - MMA Serum/Plasma, Vitamin B12 Status(SENDOUT); Future - Ferritin; Future - Iron, serum; Future - Vitamin D, 25-Hydroxy; Future - PTH, intact; Future Disorder of iron metabolism - CBC with automated diff; Future - Ferritin; Future - Iron, serum; Future Vitamin D deficiency - Comprehensive metabolic panel; Future - Vitamin D, 25-Hydroxy; Future - PTH, intact; Future Vitamin B deficiency - CBC with automated diff; Future - MMA Serum/Plasma, Vitamin B12 Status(SENDOUT); Future Weight gain - Doing fairly well. Has had weight regain of 20lbs in 2 years, due to injury . Will work to get back on track with weight loss with our dietary and exercise recommendations. She is interested in pursuing medical weight loss. Will check post op bariatric labs and call if any lab abnormalities. Follow up yearly. Shahida Orellana MD General and Bariatric Surgery 12/20/24 1:49 PM documented in this encounter Plan of Treatment Upcoming Encounters Date Type Department Care Team (Late st Contact Info) Description 02/15/2025 1:00 PM EDT Office Visit [facility] Bariat[facility] [address] [facility] [address] [place] [address] Jennifer Van, TIRE SETTER [address] [place] [address] 12/19/2025 1:00 PM EDT Office Visit [facility] Bariat[facility] [address] [facility] [address] [place] [id number] Shahida Orellana MD [address] [place] [address] [place] [address] documented as of this encounter Procedures Procedure Name Priority Date/Time Associated Diagnosis Comments VITAMIN D, 25-HYDROXY Routine 12/20/2024 2:06 PM EDT S/P gastric sleeve procedure Vitamin D deficiency PTH, INTACT Routine 12/20/2024 2:06 PM EDT S/P gastric sleeve procedure Vitamin D deficiency IRON, SERUM Routine 12/20/2024 2:06 PM EDT S/P gastric sleeve procedure Disorder of iron metabolism FERRITIN Routine 12/20/2024 2:06 PM EDT S/P gastric sleeve procedure Disorder of iron metabolism COMPREHENSIVE METABOLIC PANEL Routine 12/20/2024 2:06 PM EDT S/P gastric sleeve procedure Vitamin D deficiency documented in this encounter Results * (ABNORMAL) PTH, intact (12/20/2024 2:06 PM EDT) PTH 91.4(H) 18.4 - 80.1 pg/mL 12/20/2024 4:13 PM EDT [facility] PTH Type (pg/mL) Non-IntraO p pg/mL 12/20/2024 4:13 PM EDT [facility] Blood Venipuncture / Unknown 12/20/2024 2:06 PM EDT 12/20/2024 2:06 PM EDT us Shahida Orellana MD LAB BLOOD ORDERABLES Final Resu lt [facility] [address] [place] [address], [facility] [phone] * Vitamin D, 25-Hydroxy (12/20/2024 2:06 PM EDT) Vitamin D 25-Hydroxy 70.02 30.0 - 100.0 ng/mL 12/20/2024 6:53 PM EDT [facility] Blood Venipuncture / Unknown 12/20/2024 2:06 PM EDT 12/20/2024 2:06 PM EDT Shahida Orellana MD LAB BLOOD ORDERABLES Final Resu lt Performing Organization Address City/[facility]/ZIP Co de Phone Number [facility] [address] [place] [address], [facility] [phone] * Iron, serum (12/20/2024 2:06 PM EDT) Pathologist [facility] Iron 51 50.0 - 170.0 ug/dL 12/20/2024 6:53 PM EDT [facility] Blood Venipuncture / Unknown 12/20/2024 2:06 PM EDT 12/20/2024 2:06 PM EDT Shahida Orellana MD LAB BLOOD ORDERABLES Final Resu lt Performing Organization Address [facility] Co de Phone Number [facility] [address] [place] [address], [facility] [phone] * Ferritin (12/20/2024 2:06 PM EDT) Ferritin 92.00 8.00 - 252.00 ng/mL 12/20/2024 6:53 PM EDT [facility] Blood Venipuncture / Unknown 12/20/2024 2:06 PM EDT 12/20/2024 2:06 PM EDT us Shahida Orellana MD LAB BLOOD ORDERABLES Final Resu lt Performing Organization Address [facility]/ZIP Co de Phone Number [facility] [address] [place] [address], [facility] [phone] * MMA Serum/Plasma, Vitamin B12 Status(SENDOUT) (12/20/2024 2:06 PM EDT) Pathologist [facility] MMA Serum/Plasma, Vitamin B12 Status 0.23 0.00 - 0.40 umol/L 12/26/2024 2:15 AM EDT [facility] Comment: INTERPRETIVE INFORMATION: MMA Serum/Plasma, Vitamin B12 Status This test was developed and its performance characteristics determined by [facility]. It has not been cleared or approved by the US Food and Drug Administration. This test was performed in a CLIA certified laboratory and is intended for clinical purposes. Performed By: [facility] [address] [place] [address] Integration Director: Myron Dejesus MD, PhD CLIA Number: [id number] Blood Venipuncture / Unknown 12/20/2024 2:06 PM EDT 12/20/2024 2:06 PM EDT Shahida Orellana MD LAB BLOOD ORDERABLES Final Resu lt [facility] [address] [place] [address], [facility] [phone] * (ABNORMAL) Comprehensive metabolic panel (12/20/2024 2:06 PM EDT) Pathologist [facility] Sodium 141 136 - 146 meq/L 12/20/2024 6:53 PM EDT [facility] Potassium 4.5 3.5 - 5.1 meq/L 12/20/2024 6:53 PM EDT [facility] Chloride 105 102 - 112 meq/L 12/20/2024 6:53 PM EDT [facility] CO2 30 21 - 32 meq/L 12/20/2024 6:53 PM EDT [facility] Calcium 8.9 8.5 - 10.1 mg/dL 12/20/2024 6:53 PM EDT [facility] Glucose 96 74 - 106 mg/dL 12/20/2024 6:53 PM EDT [facility] BUN 19 7 - 22 mg/dL 12/20/2024 6:53 PM EDT [facility] Creatinine 0.89 0.55 - 1.02 mg/dL 12/20/2024 6:53 PM EDT [facility] BUN/Creatinine 21(H) 8 - 20 12/20/2024 6:53 PM EDT [facility] Albumin 3.5 3.4 - 5.0 g/dL 12/20/2024 6:53 PM EDT [facility] Alkaline Phosphatase 83 27 - 136 U/L 12/20/2024 6:53 PM EDT [facility] ALT 30 12 - 78 U/L 12/20/2024 6:53 PM EDT [facility] AST 27 5 - 37 U/L 12/20/2024 6:53 PM EDT [facility] Total Bilirubin 0.4 0.2 - 1.3 mg/dL 12/20/2024 6:53 PM EDT [facility] Protein, Total 7.0 6.4 - 8.2 gm/dL 12/20/2024 6:53 PM EDT [facility] Anion Gap 11 9 - 20 12/20/2024 6:53 PM EDT [facility] A/G Ratio 1.0(L) 1.1 - 2.5 12/20/2024 6:53 PM EDT [facility] Globulin 3.5 1.5 - 4.5 g/dL 12/20/2024 6:53 PM T [facility] Osmolality Calc 283.4 mOsm/kg 6:53 PM EDT [facility] eGFR (mL/min/1.73m2) >60 >=60 mL/min/1.7 3m2 12/20/2024 6:53 PM EDT [facility] Comment:ESTIMATED GFR IS NOT ACCURATE CREATININE CLEARANCE IN PREDICTING GLOMERULAR FILTRATION RATE. ESTIMATED GFR IS NOT APPLICABLE FOR DIALYSIS PATIENTS. Blood Venipuncture / Unknown 12/20/2024 2:06 PM EDT 12/20/2024 2:06 PM EDT us Shahida Orellana MD LAB BLOOD ORDERABLES Final Resu lt [facility] [address] [place] [address], [facility] [phone] * (ABNORMAL) CBC with automated diff (12/20/2024 2:06 PM EDT) WBC 11.8(H) 3.9 - 10.0 K/ L 12/20/2024 3:52 PM EDT [facility] RBC 4.17 3.93 - 6.08 M/ L 12/20/2024 3:52 PM EDT [facility] Hemoglobin 11.4 11.2 - 15.7 GM/DL 12/20/2024 3:52 PM EDT [facility] Hematocrit 36.9 34.1 - 44.9 % 12/20/2024 3:52 PM EDT [facility] MCV 89 79 - 95 fL 12/20/2024 3:52 PM EDT [facility] MCH 27.3 25.6 - 32.2 pg 12/20/2024 3:52 PM EDT [facility] MCHC 30.9(L) 32.2 - 36.5 GM/DL 12/20/2024 3:52 PM EDT [facility] RDW 14.8(H) 11.6 - 14.4 % 12/20/2024 3:52 PM EDT [facility] Platelets 310 163 - 369 K/CU MM 12/20/2024 3:52 PM EDT [facility] MPV 10.8 9.4 - 12.4 fL 12/20/2024 3:52 PM EDT [facility] % Neutros 64 34 - 71 % 12/20/2024 3:52 PM EDT [facility] % Lymphs 28 19 - 53 % 12/20/2024 3:52 PM EDT [facility] % Monos 6 4 - 13 % 12/20/2024 3:52 PM EDT [facility] % Eos 2 1 - 7 % 12/20/2024 3:52 PM EDT [facility] % Baso 1 0 - 1 % 12/20/2024 3:52 PM EDT [facility] # Neutros 7.55(H) 1.56 - 6.13 K/ L 12/20/2024 3:52 PM EDT [facility] # Lymphs 3.25 1.18 - 3.74 K/ L 12/20/2024 3:52 PM EDT [facility] # Monos 0.67 0.24 - 0.82 K/ L 12/20/2024 3:52 PM EDT [facility] # Eos 0.20 0.04 - 0.54 K/ L 12/20/2024 3:52 PM EDT [facility] # Baso 0.08 0.01 - 0.08 K/ L 12/20/2024 3:52 PM EDT [facility] Immature Granulocytes-Re lative 0.30 0.00 - 0.60 % 12/20/2024 3:52 PM EDT [facility] # IG 0.04 0.00 - 0.05 K/uL 12/20/2024 3:52 PM EDT [facility] Blood Venipuncture / Unknown 12/20/2024 2:06 PM EDT 12/20/2024 2:06 PM EDT Narrative [facility] - 12/20/2024 3:52 PM EDT When CBC w/ Auto Diff is ordered the lab will add a Manual Differential as a quality check at no additional charge if: Lymphocytes greater than seventy five percent with normal or increased WBC Monocytes greater than Fifteen percent Basophil greater than four percent Bands >10% or several immature myeloids are seen on scan Blast? 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
--- OUTSIDE RECORDS SUMMARY | 2024-12-20 14:00 | XMS_ITS | Encounter Summary ---
Author Organization [employer] ([place], [place], [place] Address [address] [place] [address] Care Team Providers Care Hydrogenation Still Operator Name Role Phone Gary Roberts MD Primary Care Provider +1- [phone] Encounter Details Date Type Department Care Team (Latest Contact Info) Description 12/20/2024 2:00 PM EDT Lab Patient Walk-In [facility] [address] [place] [address] S/P gastric sleeve procedure; Disorder of iron metabolism; Vitamin B deficiency Social History Tobacco Use Types Packs/Day Years [...] Date Delfin rded Speak language other than [place] at home Not on file 06/18/2023 Want [...] on file documented as of this encounter Plan of Treatment Upcoming Encounters Date Type Department Care Team (Late st Contact Info) Description 02/15/2025 1:00 PM EDT Office Visit [facility] [address] [facility] [address] [place] [address] Jennifer Van, SAND MILL OPERATOR CORE SAND [address] [place] [phone] 12/19/2025 1:00 PM EDT Office Visit 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 It has not been cleared or approved by the US Food and Drug Administration. This test was performed in a CLIA certified laboratory and is intended for clinical purposes. Performed By: [facility] [address] [place] [id number] Head Chef: Myron Dejesus MD, PhD CLIA Number: [id number] Blood Venipuncture / Unknown 12/20/2024 2:06 PM EDT 12/20/2024 2:06 PM EDT us Shahida Orellana MD LAB BLOOD ORDERABLES Final Resu lt [facility] [address] [phone] * (ABNORMAL) CBC with automated diff (12/20/2024 2:06 PM EDT) WBC 11.8(H) 3.9 - 10.0 K/ L 12/20/2024 3:52 PM EDT [facility] RBC 4.17 3.93 - 6.08 M/ L 12/20/2024 3:52 PM EDT [facility] Hemoglobin 11.4 11.2 - 15.7 GM/DL 12/20/2024 3:52 PM EDT [facility] Hematocrit 36.9 34.1 - 44.9 % 12/20/2024 3:52 PM EDT [facility] MCV 89 79 - 95 fL 12/20/2024 3:52 PM EDT [facility] MCH 27.3 25.6 - 32.2 pg 12/20/2024 3:52 PM EDT [facility] MCHC 30.9(L) 32.2 - 36.5 GM/DL 12/20/2024 3:52 PM EDT [facility] RDW 14.8(H) 11.6 - 14.4 % 12/20/2024 3:52 PM EDT [facility] Platelets 310 163 - 369 K/CU MM 12/20/2024 3:52 PM EDT [facility] MPV 10.8 9.4 - 12.4 fL 12/20/2024 3:52 PM EDT [facility] % Neutros 64 34 - 71 % 12/20/2024 3:52 PM EDT [facility] % Lymphs 28 19 - 53 % 12/20/2024 3:52 PM EDT [facility] % Monos 6 4 - 13 % 12/20/2024 3:52 PM EDT [facility] % Eos 2 1 - 7 % 12/20/2024 3:52 PM EDT [facility] % Baso 1 0 - 1 % 12/20/2024 3:52 PM EDT [facility] # Neutros 7.55(H) 1.56 - 6.13 K/ L 12/20/2024 3:52 PM EDT [facility] # Lymphs 3.25 1.18 - 3.74 K/ L 12/20/2024 3:52 PM EDT [facility] # Monos 0.67 0.24 - 0.82 K/ L 12/20/2024 3:52 PM EDT [facility] # Eos 0.20 0.04 - 0.54 K/ L 12/20/2024 3:52 PM EDT [facility] # Baso 0.08 0.01 - 0.08 K/ L 12/20/2024 3:52 PM EDT [facility] Immature Granulocytes-Re lative 0.30 0.00 - 0.60 % 12/20/2024 3:52 PM EDT [facility] # IG 0.04 0.00 - 0.05 K/uL 12/20/2024 3:52 PM EDT [facility] Blood Venipuncture / Unknown 12/20/2024 2:06 PM EDT 12/20/2024 2:06 PM EDT Narrative [facility] - 12/20/2024 3:52 PM EDT [...] MD LAB BLOOD ORDERABLES Final Resu lt [facility] [address] [place], [place] [address] [phone] documented in this encounter Visit Diagnoses Diagnosis S/P 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
--- OUTSIDE RECORDS SUMMARY | 2024-12-21 07:55 | XMS_ITS ---
Author Organization [facility] Address [address] [facility] [address] [place] [id number] Care Team Providers Care Strike Off Machine Operator Name Role Phone Samy Roberts Primary [...] (substance) Sulfa Antibiotics Unknown Drug Allergy Active Encounters Encounter Location Date Provider Diagnosis [facility] [facility] [address] [place] [id number] 12/21/2024 Samy Roberts Seasonal allergic rhinitis, unspecified trigger J30.2 Assessments Encounter Date Diagnosis (ICD Code) Assessment Notes Treatment Notes Treatment Clinical Notes Section Notes 12/21/2024 Seasonal allergic rhinitis, unspecified trigger (ICD-10 - J30.2) Plan Of Treatment No Information Medications Administered Medication Instructions Date of Administration Dosage Notes allergy 12/21/2024 allergy 12/21/2024 Progress Notes * JOSÉ MIGUEL CARTERB:1950 ( 74 yo F)Acc No.[id number]:12/21/2024 Patient: ISMAEL HENLEY Provider: Samy Roberts M.D. :1950 A ge:73 Y S ex:Female Date:12/21/2024 Address:[place], [id number] Subjective: * Chief Complaints: * * Medical History: S eizure disorder, Seasonal allergies, Hypertension, Sleep Apnea, Osteoarthritis, Lumbar Spinal Stenosis, GERD, Anemia, Depression, Hyperlipidemia. * Allergies: A moxicillin, FABRICE Inhibitors: cough, Sulindac: chest tightness, Reglan: anxiety, Sulfa Antibiotics, Budesonide, Cefdinir: does not help, amLODIPine: swelling - Side Effects, Nabumetone: Headaches - Side Effects. Objective: * Vitals: Assessment: * Assessment: 1. S easonal allergic rhinitis, unspecified trigger - J30.2 (Primary) Plan: * Treatment: * Therapeutic Injections: allergy (Route: Subcutaneous) given by VASYL Li on subcutaneus allergy (Route: Subcutaneous) given by VASYL Li on subcutaneus * Procedure Codes: 9 5115 IMMUNOTHERAPY, ONE INJECTION * Images: Billing Information: * Visit Code: * Procedure Codes: 54861 IMMUNOTHERAPY, ONE INJECTION. * Electronic signature of Samy Roberts MD on 12/26/2024 at 10:34 AM EDT Sign off status: Pending * Provider: Samy Roberts M.D. Date: 0 12/21/2024 Generated for Rose varela/Aida/Franitting on: 12/26/2024 10:34 AM EDT
--- OUTSIDE RECORDS SUMMARY | 2024-12-26 10:34 | XMS_ITS | Referral Summary ---
Author Organization [employer] ([place], [place], [place]) Address [address] [place] [address] Care Team Providers Care Tower Hoist Operator Name Role Phone Gary Roberts MD Primary Care Provider +1- [phone] Encounters Date Type Department Care Team Description 12/20/2024 2:00 PM EDT Lab Patient Walk-In [facility] [address] [place] [address] S/P gastric sleeve procedure; Disorder of iron metabolism; Vitamin B deficiency 12/20/2024 1:00 PM EDT Office Visit [facility] [address] [facility] [address] [place] [address] Shahida Orellana MD S/P gastric sleeve procedure (Primary Dx); Disorder of iron metabolism; Vitamin D deficiency; Vitamin B deficiency; Weight gain from Last 3 Months Allergies Active Allergy Reactions Criticality Noted Date Comments Karthik Inhibitors Low 03/17/2013 Other reaction(s): Cough Adhesive Bandage Rash Low 01/29/2022 * request cloth tape only* Amlodipine Swelling High 12/20/2024 Amoxicillin Low 11/30/2011 Other reaction(s): Unknown Penicillins Pt cant remember, reaction was when she was 20 yrs old Penicillins Patient has tolerated cefuroxime (2nd gen cephalosporin) as outpatient Budesonide Medium 11/30/2011 Other reaction(s): Hallucinations, Other, Uncoded Allergy (See Comment), Unknown 1'felt out of her Head' Corticosteroids chest pain Corticosteroids Corticosteroids Cefdinir Other (See Comments) Low 09/14/2024 Cheese 11/16/2022 Other reaction(s): Unknown Denosumab Rash Low 06/02/2023 Noticed red blotchy spots on legs following administration. No systemic symptoms including SOA reported. Metoclopramide Anxiety Low 11/30/2011 Other reaction(s): Other, Unknown vertigo Sulfa (Sulfonamide Antibiotics) Low 11/30/2011 Other reaction(s): C/O - cough, Unknown took a long time ago, doesnt remember but knows it made her feel bad Sulindac Low 11/30/2011 Other reaction(s): Unknown Pt doesnt remember, she does tolerate Mobic, which she takes daily, and IBU just fine Medications allopurinoL (ZYLOPRIM) 300 MG tablet Take 1 tablet (300 mg total) by mouth in the morning. 08/19/19 Active azelastine (ASTELIN) 137 mcg (0.1 %) nasal spray 1-2 sprays in the morning and 1-2 sprays before bedtime. 10/17/19 23 Active Keppra XR 500 mg 24 hr tablet Take by mouth. 10/17/19 23 Active Zenpep 20,000-63,000- 84,000 unit CpDR capsule Take 1 capsule (20,000 units of lipase total) by mouth in the morning and 1 capsule (20,000 units of lipase total) at noon and 1 capsule (20,000 units of lipase total) in the evening. 10/17/19 Active acetaminophen (TYLENOL) 500 MG tablet Take 2 tablets (1,000 mg total) by mouth every 6 (six) hours if needed. 07/25/19 Active aspirin 81 MG EC tablet Take 1 tablet (81 mg total) by mouth. Active cholecalcifero l, vitamin D3, 50 mcg (2,000 unit) Cap Take 1 capsule (2,000 Units total) by mouth. Active gabapentin (NEURONTIN) 100 MG capsule SMARTSI-3 Capsule(s) By Mouth 3 Times Daily 11/10/19 Active montelukast (SINGULAIR) 10 mg tablet Take 1 tablet (10 mg total) by mouth nightly. 10/21/19 Active rosuvastatin (CRESTOR) 10 MG tablet Take 1 tablet (10 mg total) by mouth in the morning. 08/19/19 Active omeprazole (PriLOSEC) 40 MG capsule Take 1 capsule (40 mg total) by mouth daily. 11/21/19 Active olmesartan (BENICAR) 20 MG tablet Take 1 tablet (20 mg total) by mouth daily. 09/17/19 Active furosemide (LASIX) 20 MG tablet Take 1 tablet (20 mg total) by mouth daily. 12/05/19 Active fluticasone propionate (FLOVENT HFA) 110 mcg/actuation inhaler 2 puffs 2 (two) times daily. 10/17/19 Active fluticasone propionate (FLONASE) 50 mcg/actuation nasal spray 1 spray 2 (two) times daily. 09/13/19 Active psyllium husk (Konsyl Sugar-Free) 6 gram pwpk packet Take 1 packet by mouth daily. Active multivitamin per tablet Take 1 tablet by mouth daily. Active Xiidra 5 % dpet 1 drop. 12/05/19 Active denosumab (Prolia) 60 mg/mL syrg as directed Subcutaneous every 6 months Active calcitRIOL (ROCALTROL) 0.25 MCG capsule Take 1 capsule (0.25 mcg total) by mouth daily. 12/05/19 Active estradioL (VAGIFEM) 10 mcg tablet SMARTSI Tablet(s) Vaginal 3 Times a Week 10/17/19 025 Discontinued Qvar RediHaler 80 mcg/actuation inhaler 2 puffs in the morning and 2 puffs before bedtime. 10/23/19 025 Discontinued omeprazole (PriLOSEC) 20 MG capsule Take 1 capsule (20 mg total) by mouth in the morning. 09/16/19 23 025 Discontinued cetirizine (ZyrTEC) 10 MG tablet Take 1 tablet (10 mg total) by mouth in the morning. 10/17/19 23 025 Discontinued olmesartan (BENICAR) 40 MG tablet Take 1 tablet (40 mg total) by mouth in the morning. 10/22/19 23 025 Discontinued traMADoL (ULTRAM) 50 mg tablet Take 1 tablet (50 mg total) by mouth in the morning and 1 tablet (50 mg total) at noon and 1 tablet (50 mg total) in the evening. Max Daily Amount: 150 mg. 10/24/19 025 Discontinued furosemide (LASIX) 40 MG tablet Take 1 tablet (40 mg total) by mouth daily as needed. 10/31/19 025 Discontinued Xhance 93 mcg/actuation AerB 1 spray in the morning and 1 spray before bedtime. 10/17/19 025 Discontinued teriparatide 20 mcg/dose (620mcg/2.48mL ) PnIj Inject subcutaneously. 11/04/19 025 Discontinued Social History Tobacco Use Types Packs/Day Years [...] Date Delfin rded Speak language other than Citizen [place] at home Not on file 06/18/2023 Want [...] oz) 12/20/2024 1:21 P M EDT Height 167.6 cm (5' 6 ) 11/16/2022 2:06 PM EDT Body Mass Index 31.34 11/16/2022 2:06 PM EDT Plan of Treatment Upcoming Encounters Date Type Department Care Team (Late st Contact Info) Description 02/15/2025 1:00 PM EDT Office Visit [facility] [address] [place] [address] Jennifer Van, AMUSEMENT PARK WORKER [address] [place] [phone] 12/19/2025 1:00 PM EDT Office Visit [facility] Bariat[facility] [address] [place] [address] Shahida Orellana MD [address] [place] [address] Procedures Procedure Name Priority Date/Time Associated Diagnosis Comments MMA SERUM/PLASMA, VITAMIN B12 STATUS(SENDOUT) Routine 12/20/2024 2:06 PM EDT S/P gastric sleeve procedure Vitamin B deficiency CBC W/ AUTO DIFF Routine 12/20/2024 2:06 PM EDT S/P gastric sleeve procedure Disorder of iron metabolism Vitamin B deficiency PTH, INTACT Routine 12/20/2024 2:06 PM EDT S/P gastric sleeve procedure Vitamin D deficiency VITAMIN D, 25-HYDROXY Routine 12/20/2024 2:06 PM EDT S/P gastric sleeve procedure Vitamin D deficiency IRON, SERUM Routine 12/20/2024 2:06 PM EDT S/P gastric sleeve procedure Disorder of iron metabolism FERRITIN Routine 12/20/2024 2:06 PM EDT S/P gastric sleeve procedure Disorder of iron metabolism COMPREHENSIVE METABOLIC PANEL Routine 12/20/2024 2:06 PM EDT S/P gastric sleeve procedure Vitamin D deficiency from Last 3 Months Results * (ABNORMAL) CBC with automated diff (12/20/2024 2:06 PM EDT) WBC 11.8(H) 3.9 - 10.0 K/ L 12/20/2024 3:52 PM EDT [facility] RBC 4.17 3.93 - 6.08 M/ L 12/20/2024 3:52 PM EDT [facility] Hemoglobin 11.4 11.2 - 15.7 GM/DL 12/20/2024 3:52 PM EDT [facility] Hematocrit 36.9 34.1 - 44.9 % 12/20/2024 3:52 PM EDT [facility] MCV 89 79 - 95 fL 12/20/2024 3:52 PM EDT [facility] MCH 27.3 25.6 - 32.2 pg 12/20/2024 3:52 PM EDT [facility] MCHC 30.9(L) 32.2 - 36.5 GM/DL 12/20/2024 3:52 PM EDT [facility] RDW 14.8(H) 11.6 - 14.4 % 12/20/2024 3:52 PM EDT [facility] Platelets 310 163 - 369 K/CU MM 12/20/2024 3:52 PM EDT [facility] MPV 10.8 9.4 - 12.4 fL 12/20/2024 3:52 PM EDT [facility] % Neutros 64 34 - 71 % 12/20/2024 3:52 PM EDT [facility] % Lymphs 28 19 - 53 % 12/20/2024 3:52 PM EDT [facility] % Monos 6 4 - 13 % 12/20/2024 3:52 PM EDT [facility] % Eos 2 1 - 7 % 12/20/2024 3:52 PM EDT [facility] % Baso 1 0 - 1 % 12/20/2024 3:52 PM EDT [facility] # Neutros 7.55(H) 1.56 - 6.13 K/ L 12/20/2024 3:52 PM EDT [facility] # Lymphs 3.25 1.18 - 3.74 K/ L 12/20/2024 3:52 PM EDT [facility] # Monos 0.67 0.24 - 0.82 K/ L 12/20/2024 3:52 PM EDT [facility] # Eos 0.20 0.04 - 0.54 K/ L 12/20/2024 3:52 PM EDT [facility] # Baso 0.08 0.01 - 0.08 K/ L 12/20/2024 3:52 PM EDT [facility] Immature Granulocytes-Re lative 0.30 0.00 - 0.60 % 12/20/2024 3:52 PM EDT [facility] # IG 0.04 0.00 - 0.05 K/uL 12/20/2024 3:52 PM EDT [facility] Blood Venipuncture / Unknown 12/20/2024 2:06 PM EDT 12/20/2024 2:06 PM EDT Narrative [facility] - 12/20/2024 3:52 PM EDT [...] MD LAB BLOOD ORDERABLES Final Resu lt [facility] [address] [place] [address], [facility] [phone] * MMA Serum/Plasma, Vitamin B12 Status(SENDOUT) (12/20/2024 2:06 PM EDT) MMA Serum/Plasma, Vitamin B12 Status 0.23 0.00 - 0.40 umol/L 12/26/2024 2:15 AM EDT [employer] Comment: INTERPRETIVE INFORMATION: MMA Serum/Plasma, Vitamin B12 Status This test was developed and its performance characteristics determined by [facility]. It has not been cleared or approved by the US Food and Drug Administration. This test was performed in a CLIA certified laboratory and is intended for clinical purposes. Performed By: [facility] [address] [place] [address] Travel Insurance Agent: Myron Dejesus MD, PhD CLIA Number: [id number] Blood Venipuncture / Unknown 12/20/2024 2:06 PM EDT 12/20/2024 2:06 PM EDT Shahida Orellana MD LAB BLOOD ORDERABLES Final Resu lt Performing Organization Address City/[facility]/ZIP Co de Phone Number [facility] [employer] [address] [phone] * Vitamin D, 25-Hydroxy (12/20/2024 2:06 PM EDT) Vitamin D 25-Hydroxy 70.02 30.0 - 100.0 ng/mL 12/20/2024 6:53 PM EDT [facility] Blood Venipuncture / Unknown 12/20/2024 2:06 PM EDT 12/20/2024 2:06 PM EDT Shahida Orellana MD LAB BLOOD ORDERABLES Final Resu lt Performing Organization Address [facility] de Phone Number [facility] [address] [phone] * (ABNORMAL) PTH, intact (12/20/2024 2:06 PM EDT) PTH 91.4(H) 18.4 - 80.1 pg/mL 12/20/2024 4:13 PM EDT [facility] PTH Type (pg/mL) Non-IntraO p pg/mL 12/20/2024 4:13 PM EDT [facility] Blood Venipuncture / Unknown 12/20/2024 2:06 PM EDT 12/20/2024 2:06 PM EDT Shahida Orellana MD LAB BLOOD ORDERABLES Final Resu lt Performing Organization Address [facility] Co de Phone Number [facility] [address] [phone] * Iron, serum (12/20/2024 2:06 PM EDT) Iron 51 50.0 - 170.0 ug/dL 12/20/2024 6:53 PM EDT [facility] Blood Venipuncture / Unknown 12/20/2024 2:06 PM EDT 12/20/2024 2:06 PM EDT Shahida Orellana MD LAB BLOOD ORDERABLES Final Resu lt [facility] [address] [phone] * Ferritin (12/20/2024 2:06 PM EDT) Ferritin 92.00 8.00 - 252.00 ng/mL 12/20/2024 6:53 PM EDT [facility] Blood Venipuncture / Unknown 12/20/2024 2:06 PM EDT 12/20/2024 2:06 PM EDT Shahida Orellana MD LAB BLOOD ORDERABLES Final Resu lt [facility] [address] [phone] * (ABNORMAL) Comprehensive metabolic panel (12/20/2024 2:06 PM EDT) Sodium 141 136 - 146 meq/L 12/20/2024 6:53 PM EDT [facility] Potassium 4.5 3.5 - 5.1 meq/L 12/20/2024 6:53 PM EDT [facility] Chloride 105 102 - 112 meq/L 12/20/2024 6:53 PM EDT [facility] CO2 30 21 - 32 meq/L 12/20/2024 6:53 PM EDT [facility] Calcium 8.9 8.5 - 10.1 mg/dL 12/20/2024 6:53 PM [facility] Glucose 96 74 - 106 mg/dL 12/20/2024 6:53 PM [facility] BUN 19 7 - 22 mg/dL 12/20/2024 6:53 PM [facility] Creatinine 0.89 0.55 - 1.02 mg/dL 12/20/2024 6:53 PM [facility] BUN/Creatinine 21(H) 8 - 20 12/20/2024 6:53 PM [facility] Albumin 3.5 3.4 - 5.0 g/dL 12/20/2024 6:53 PM [facility] Alkaline Phosphatase 83 27 - 136 U/L 12/20/2024 6:53 PM [facility] ALT 30 12 - 78 U/L 12/20/2024 6:53 PM [facility] AST 27 5 - 37 U/L 12/20/2024 6:53 PM [facility] Total Bilirubin 0.4 0.2 - 1.3 mg/dL 12/20/2024 6:53 PM [facility] Protein, Total 7.0 6.4 - 8.2 gm/dL 12/20/2024 6:53 PM [facility] Anion Gap 11 9 - 20 12/20/2024 6:53 PM [facility] A/G Ratio 1.0(L) 1.1 - 2.5 12/20/2024 6:53 PM [facility] Globulin 3.5 1.5 - 4.5 g/dL 12/20/2024 6:53 PM [facility] Osmolality Calc 283.4 mOsm/kg 6:53 PM [facility] eGFR (mL/min/1.73m2) >60 >=60 mL/min/1.7 3m2 12/20/2024 6:53 PM [facility] Comment:ESTIMATED GFR IS NOT ACCURATE CREATININE CLEARANCE IN PREDICTING GLOMERULAR FILTRATION RATE. ESTIMATED GFR IS NOT APPLICABLE FOR DIALYSIS PATIENTS. Blood Venipuncture / Unknown 12/20/2024 2:06 PM EDT 12/20/2024 2:06 PM EDT us Shahida Orellana MD LAB BLOOD ORDERABLES Final Resu lt [facility] [address] [place] [id number], [facility] [phone] from Last 3 Months Insurance [facility] MEDIC[facility] [employer] Care Teams Tower Hoist Operator Relationship Specialty Start Date End Date Gary Roberts MD [address] [place] [address] PCP - General Family Medicine 11/16/22
--- OUTSIDE RECORDS SUMMARY | 2024-12-26 10:34 | XMS_ITS | Encounter Summary ---
Author Organization Healthcare Address [address] [place] [address] Care Team Providers Care Data Warehousing Manager Name Role Phone Gary Roberts MD Primary Care Provider +1- [phone] Encounter Details Date Type Department Care Team [...] drink first t figueroa in the morning (EYE-DRUG REGULATORY AFFAIRS SPECIALIST) to steady your nerves or to get [...] Info) Description 03/28/2025 11:00 AM EDT Evaluation [facility] Bone & Mineral Metabolism [address], [address] [place] [address] Chapo Santoro, PharmD [address] [place] [address] 03/29/2025 10:40 AM EDT Office Visit [facility] Nephrology, Bone & Mineral Metabolism [address], [address] [place] [address] Edinson Reyes MD [address] [place] [address] documented as of this encounter Visit [...] documented as of this encounter Care Teams Data Warehousing Manager Relationship Specialty Start Date End Date Gary Roberts MD [address] [place] [address] PCP - General 10/18/20 documented as of this encounter
--- OUTSIDE RECORDS SUMMARY | 2024-12-26 10:34 | XMS_ITS | Encounter Summary ---
Author Organization [facility] Address [address] [place] [address] Care Team Providers Care Medical Record Assistant Name Role Phone Gary Roberts MD Primary Care Provider +1- [phone] Encounter Details Date Type Department Care Team ([facility] st Contact Info) Description 09/18/2024 Results Follow-Up [facility] Nephrology, Bone & Mineral Metabolism [address], [address] [place] [address] Edinson Reyes MD [address] [place] [address] Social History Tobacco Use Types [...] drink first t figueroa in the morning (EYE-CHIEF DOG LICENSE INSPECTOR) to steady your nerves or to get [...] Info) Description 03/28/2025 11:00 AM EDT Evaluation [facility] Bone & Mineral Metabolism [address], [address] [place] [address] Chapo Santoro, PharmD [address] [place] [address] 03/29/2025 10:40 AM EDT Office Visit [facility] Nephrology, Bone & Mineral Metabolism [address], [address] [place] [address] Edinson Reyes MD [address] [place] [address] documented as of this encounter Visit Diagnoses Not on filedocumented in this encounter Additional Health Concerns Assessment Noted Time A fall risk assessment has been complete d for the patient 09/14/2024 10:57 AM EDT A Body Mass Index follow-up plan has been documented for the patient 09/14/2024 3:04 PM EDT documented as of this encounter Care Teams Medical Record Assistant Relationship Specialty Start Date End Date Gary Roberts MD [address] [place] [address] PCP - General 10/18/20 documented as of this encounter
--- OUTSIDE RECORDS SUMMARY | 2024-12-26 10:34 | XMS_ITS | Clinical Summary ---
Author Organization [employer] ([place], [place], [place], [place]) Address [address] [place] [address] Care Team Providers Care Senior Vice President Name Role Phone Gary Roberts MD Primary Care Provider [phone] Allergies Active Allergy Reactions Criticality Noted Date [...] morning and 1-2 sprays before bedtime. 10/17/19 Active Keppra XR 500 mg 24 hr tablet Take by mouth. 10/17/19 Active Zenpep 20,000-63,000- 84,000 unit CpDR capsule [...] total) by mouth in the morning. 09/16/19 025 Discontinued cetirizine (ZyrTEC) 10 MG tablet Take 1 tablet (10 mg total) by mouth in the morning. 10/17/19 025 Discontinued olmesartan (BENICAR) 40 MG tablet Take 1 tablet (40 mg total) by mouth in the morning. 10/22/19 025 Discontinued traMADoL (ULTRAM) 50 mg tablet [...] ) PnIj Inject subcutaneously. 11/04/19 025 Discontinued Encounters Date Type Department Care Team Description 12/20/2024 2:00 PM EDT Lab Patient Walk-In [facility] [address] [place] [address] S/P gastric sleeve procedure; Disorder of iron metabolism; Vitamin B deficiency 12/20/2024 1:00 PM EDT Office Visit [facility] [address] [facility] [address] [place] [address] Shahida Orellana MD S/P gastric sleeve procedure (Primary Dx); Disorder of iron metabolism; Vitamin D deficiency; Vitamin B deficiency; Weight gain from Last 3 Months Social History Tobacco Use Types Packs/Day Years [...] Date 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 Speak language other than Czech at home Not on file 06/18/2023 Want [...] Description 02/15/2025 1:00 PM EDT Office Visit [facility] [address] [facility] [address] [place] [address] Jennifer Van, SUPERVISORY CLERK [address] [place] [id number] 12/19/2025 1:00 PM EDT Office Visit [facility] [address] [facility] [address] [place] [address] Shahida Orellana MD [address] [facility] [address] [place] [address] Health Maintenance Due Date Last Done Comments CT Colonography 1950 Colonoscopy 1950 Colorectal Cancer Screening 1950 DXA SCAN 1950 FOBT/FIT 1950 Fit-DNA (Cologuard) 1950 Sigmoidoscopy 1950 Depression Screening (12+) 1962 Hepatitis C Screening 1968 DTAP/TDAP/TD VACCINES (1 - Tdap) 1969 Shingles Vaccine (Zoster) (1 of 2) 2000 Medicare Initial AWV G0438 06/08/2023 COVID-19 VACCINE (7 - 2023-2 5 season) 2024 03/11/2022, 03/12/2021, 07/22/2020, Additional history exists Falls Risk Screening 06/07/2024 Influenza Vaccine (#1) 2025 , 03/11/2020, 02/23/2020, Additional history exists Tobacco Cessation Counseling and Screening (12+) 12/20/2025 12/20/2024 Respiratory Syncytial Virus (RSV) Adult or (1 - 1-dose 75+ series) 2025 Breast Cancer Screening 10/26/2026 10/26/2024, 10/26 Pneumococcal 50+ years Completed 04/20/2023, 2016 Procedures Procedure Name Priority Date/Time Associated Diagnosis [...] Blast? Flag noted Atypical Lymph flag noted Shahida Orellana MD LAB BLOOD ORDERABLES Final Resu lt Performing Organization Address City/[facility]/ZIP Co de Phone Number [facility] [address] [phone] * MMA Serum/Plasma, Vitamin B12 Status(SENDOUT) (12/20/2024 2:06 PM EDT) Pathologist [facility] MMA Serum/Plasma, Vitamin B12 Status 0.23 0.00 - 0.40 umol/L 12/26/2024 2:15 AM EDT [facility] Comment: INTERPRETIVE INFORMATION: MMA Serum/Plasma, Vitamin B12 Status This test was developed and its performance characteristics determined by [facility]. It has not been cleared or approved by the [place] Food and Drug Administration. This test was performed in a CLIA certified laboratory and is intended for clinical purposes. Performed By: [facility] [address] [place] [address] Break Out Man: Myron Dejesus MD, PhD CLIA Number: [id number] Blood Venipuncture / Unknown 12/20/2024 2:06 PM EDT 12/20/2024 2:06 PM EDT Shahida Orellana MD LAB BLOOD ORDERABLES Final Resu lt Performing Organization Address [facility] Co de Phone Number [facility] [address] [place] [address], [facility] [phone] * Vitamin D, 25-Hydroxy (12/20/2024 2:06 PM EDT) Pathologist [facility] Vitamin D 25-Hydroxy 70.02 30.0 - 100.0 ng/mL 12/20/2024 6:53 PM EDT [facility] Blood Venipuncture / Unknown 12/20/2024 2:06 PM EDT 12/20/2024 2:06 PM EDT Shaihda Orellana MD LAB BLOOD ORDERABLES Final Resu lt Performing Organization Address [facility]/ZIP Co de Phone Number [facility] [address] [phone] * (ABNORMAL) PTH, intact (12/20/2024 2:06 PM EDT) PTH 91.4(H) 18.4 - 80.1 pg/mL 12/20/2024 4:13 PM EDT [facility] PTH Type (pg/mL) Non-IntraO p pg/mL 12/20/2024 4:13 PM EDT [facility] Blood Venipuncture / Unknown 12/20/2024 2:06 PM EDT 12/20/2024 2:06 PM EDT Shahida Orellana MD LAB BLOOD ORDERABLES Final Resu lt Performing Organization Address [facility] Co de Phone Number [facility] [address] [place] [address], [facility] [phone] * Iron, serum (12/20/2024 2:06 PM EDT) Iron 51 50.0 - 170.0 ug/dL 12/20/2024 6:53 PM EDT [facility] Blood Venipuncture / Unknown 12/20/2024 2:06 PM EDT 12/20/2024 2:06 PM EDT Shahida Orellana MD LAB BLOOD ORDERABLES Final Resu lt Performing Organization Address [facility]/ZIP Co de Phone Number [facility] [address] [phone] * Ferritin (12/20/2024 2:06 PM EDT) Ferritin 92.00 8.00 - 252.00 ng/mL 12/20/2024 6:53 PM EDT [facility] Blood Venipuncture / Unknown 12/20/2024 2:06 PM EDT 12/20/2024 2:06 PM EDT us Shahida Orellana MD LAB BLOOD ORDERABLES Final Resu lt [facility] [address] [address], [facility] [phone] * (ABNORMAL) Comprehensive metabolic panel (12/20/2024 2:06 PM EDT) Sodium 141 136 - 146 meq/L 12/20/2024 6:53 PM EDT [facility] Potassium 4.5 3.5 - 5.1 meq/L 12/20/2024 6:53 PM EDT [facility] Chloride 105 102 - 112 meq/L 12/20/2024 6:53 PM EDT [facility] CO2 30 21 - 32 meq/L 12/20/2024 6:53 PM EDT [facility] Calcium 8.9 8.5 - 10.1 mg/dL 12/20/2024 6:53 PM EDT [facility] Glucose 96 74 - 106 mg/dL 12/20/2024 6:53 PM EDT [facility] BUN 19 7 - 22 mg/dL 12/20/2024 6:53 PM EDT [facility] Creatinine 0.89 0.55 - 1.02 mg/dL 12/20/2024 6:53 PM EDT [facility] BUN/Creatinine 21(H) 8 - 20 12/20/2024 6:53 PM EDT [facility] Albumin 3.5 3.4 - 5.0 g/dL 12/20/2024 6:53 PM EDT [facility] Alkaline Phosphatase 83 27 - 136 U/L 12/20/2024 6:53 PM EDT [facility] ALT 30 12 - 78 U/L 12/20/2024 6:53 PM EDT [facility] AST 27 5 - 37 U/L 12/20/2024 6:53 PM EDT [facility] Total Bilirubin 0.4 0.2 - 1.3 mg/dL 12/20/2024 6:53 PM EDT [facility] Protein, Total 7.0 6.4 - 8.2 gm/dL 12/20/2024 6:53 PM EDT [facility] Anion Gap 11 9 - 20 12/20/2024 6:53 PM EDT [facility] A/G Ratio 1.0(L) 1.1 - 2.5 12/20/2024 6:53 PM EDT [facility] Globulin 3.5 1.5 - 4.5 g/dL 12/20/2024 6:53 PM EDT [facility] Osmolality Calc 283.4 mOsm/kg 6:53 PM EDT [facility] eGFR (mL/min/1.73m2) >60 >=60 mL/min/1.7 3m2 12/20/2024 6:53 PM EDT [facility] Comment:ESTIMATED GFR IS NOT ACCURATE CREATININE CLEARANCE IN PREDICTING GLOMERULAR FILTRATION RATE. ESTIMATED GFR IS NOT APPLICABLE FOR DIALYSIS PATIENTS. Blood Venipuncture / Unknown 12/20/2024 2:06 PM EDT 12/20/2024 2:06 PM EDT us Shahida Orellana MD LAB BLOOD ORDERABLES Final Resu lt [facility] [address] [place] [address], [facility] [phone] from Last 3 Months Insurance [facility] [place] [phone] [facility] MEDICARE ADVANTAGE Care Teams Senior Vice President Relationship Specialty Start Date End Date Gary Roberts MD [address] [place] [id number] PCP - General Family Medicine 11/16/22
--- OUTSIDE RECORDS SUMMARY | 2024-12-26 10:36 | XMS_ITS | Clinical Summary ---
[facility] Address [address] [place] [address] Care Team Providers Care Geologic Technician Name Role Phone Gary Roberts MD Primary Care Provider Allergies Active Allergy Reactions Criticality Noted Date Comments Karthik Inhibitors 11/06/2015 Amoxicillin 11/06/2015 Penicillins Cheese Other (See Comments) 11/16/2022 Other reaction(s): Unknown Budesonide 02/09/2017 Corticosteroids Metoclopramide 11/06/2015 Sulfa Antibiotics 02/09/2017 Sulindac 11/06/2015 Wound Dressing Adhesive Rash Low 01/29/2022 Medications azelastine (ASTELIN) 0.1 % nasal spray Use in each nostril as directed Active PATIENT SUPPLIED ALLERGY INJECTION Inject under the skin 1 (One) Time Per Week. Active allopurinol (ZYLOPRIM) 300 MG tablet 7 Active ZENPEP 22448-13303 units capsule delayed-release particles TAKE 1 CAPSULE BY MOUTH BEFORE A MEAL (THREE TIMES DAILY) 0 Active levETIRAcetam XR (Keppra XR) 500 MG 24 hr tablet Keppra XR 500 mg tablet,extended release TAKE 1 TABLET BY MOUTH EVERY DAY IN THE MORNING AND TAKE 4 TABLETS EVERY DAY AT BEDTIME DIRECTED Active rosuvastatin (CRESTOR) 10 MG tablet Take 10 mg by mouth Daily. 0 Active montelukast (SINGULAIR) 10 MG tablet Take 10 mg by mouth Daily. 0 Active albuterol sulfate HFA 108 (90 Base) MCG/ACT inhaler INHALE TWO PUFFS BY MOUTH EVERY 4 HOURS NEEDED. MAY USE 2 puffs 20 TO 30 minutes BEFORE physical exertion. 1 Active Qvar RediHaler 80 MCG/ACT inhaler INHALE TWO PUFFS BY MOUTH EVERY TWELVE HOURS --SHAKE WELL BEFORE USE-- --RINSE MOUTH AFTER USE-- 1 Active cetirizine (zyrTEC) 10 MG tablet Take 10 mg by mouth Daily. 1 Active omeprazole (priLOSEC) 20 MG capsule Take 1 capsule by mouth Daily. 3 Active furosemide (LASIX) 20 MG tablet Take 1 tablet by mouth Daily As Needed. Active olmesartan (BENICAR) 20 MG tablet Take 1 tablet by mouth Daily. 3 Active Cholecalciferol 50 MCG (2000 UT) capsule Take 1 capsule by mouth Daily. Active psyllium (Konsyl Daily Fiber) 100 % pack packet Take 1 packet by mouth Daily. Active [place]-3 Fatty Acids (fish oil) 1000 MG capsule capsule Take 1 capsule by mouth Daily With Breakfast. Active multivitamin tablet tablet Take 1 tablet by mouth Daily. Active meloxicam (MOBIC) 7.5 MG tablet Take 1 tablet by mouth Daily. Active Xiidra 5 % ophthalmic solution Administer 1 drop to both eyes 2 (Two) Times a Day. 4 Active ferrous sulfate 325 (65 FE) MG tablet Take 1 tablet by mouth Daily. Active denosumab (PROLIA) 60 MG/ML solution prefilled syringe syringe Inject 1 mL under the skin into the appropriate area as directed 1 (One) Time. Active aspirin 81 MG EC tablet Take 1 tablet by mouth Daily. Active gabapentin (NEURONTIN) 100 MG capsule Take 1 capsule by mouth 3 (Three) Times a Day. Patient also takes 300 mg at bedtime. 600 mg daily. Active estradiol (VAGIFEM) 10 MCG tablet vaginal tabletIndicatio ns:Atrophy of vagina Insert 1 tablet into the vagina 3 (Three) Times a Week. 12 tablet 12 4 Active clobetasol (TEMOVATE) 0.05 % ointment Apply 1 Application topically to the appropriate area as directed 2 (Two) Times a Day. 30 g 1 4 Active Active Problems Problem Noted Date Diagnosed Date Hiatal hernia 11/17/2016 Physical deconditioning 01/30/2016 History of epilepsy 01/30/2016 Lumbar stenosis with neurogenic claudication History of lumbar fusion 01/30/2016 Cervical spondylosis without myelopathy 01/30/20 16 History of bilateral knee replacement 01/30/2016 Displacement of lumbar intervertebral disc 01/29 Borderline type 2 diabetes mellitus 01/30/2016 Cervical pain 12/20/2015 Vaginal atrophy Seizures Rectocele Obesity Menopause Hypertension GERD (gastroesophageal reflux disease) Epilepsy Resolved Problems Problem Noted Date Diagnosed Date Resolved Date Moderate obesity 01/30/2016 11/17/2016 Rectocele 11/17/2016 Encounters Date Type Department Care Team Description 10/26/2024 2:00 PM EDT - 10/26/2024 11:59 [place] [address] Noemi Aguila MD Abnormal mammogram Discharge Disposition: Home or Self Care 10/26/2024 Travel from Last 3 Months Family History Medical History Relation Name Comments Heart attack Father Heart disease Father Hypertension Father Osteoarthritis Father Heart failure Maternal Grandfather Stroke Maternal Grandmother Breast cancer Maternal Great-Grandmother DX AGE UNKNOWN Cancer Mother Diabetes Mother Hypertension Mother Stroke Mother Uterine cancer Mother Rheum arthritis Other Grandparent Stroke Other Grandparent Stroke Paternal Grandfather Rheum arthritis Paternal Grandmother Ovarian cancer Neg Hx Relation Name Status Comments Father Maternal Grandfather Maternal Grandmother Maternal Great-Grandmother Mother Other Grandparent Paternal Grandfather Paternal Grandmother Social History Tobacco Use Types Packs/Day Years Used Date Smoking Tobacco: Never Smokeless Tobacco: Never Tobacco Cessation:Counseling Given: Not Answered Alcohol Use Standard Drinks/Week Comments No 0 (1 standard drink = 0.6 oz pur e alcohol) SOCIAL/OCCASIONAL Comments No Sex and Gender Information Value Date Recorded Sex Assigned at Not on file Legal Sex Female 10:06 AM EDT Gender Identity Not on file Sexual Orientation Straight 01/23/2022 3: 53 PM EDT Last Filed Vital Signs Vital Sign Reading Time Taken Comments Blood Pressure 160/78 02/28/2024 1:03 PM EDT Pulse 77 02/15/2017 10:20 AM EDT Temperature 36.6 C (97.8 F) 12/29/2017 8:01 AM EDT Respiratory Rate 17 11/19/2017 10:29 AM EDT Oxygen Saturation 98% 11/19/2017 10:29 AM EDT Inhaled Oxygen Concentration - - Weight 88.2 kg (194 lb 6.4 oz) 02/28/2024 1:03 P M EDT Height 162.6 cm (5' 4 ) 02/28/2024 1:03 PM EDT Body Mass Index 33.37 02/28/2024 1:03 PM EDT Plan of Treatment Upcoming Encounters Date Type Department Care Team (Late st Contact Info) Description 03/19/2025 2:10 PM EDT Office Visit [facility] [address] [id number] Martha Hutchinson MD [address] [address] Health Maintenance Due Date Last Done Comments TDAP/TD VACCINES (1 - Tdap) 1969 COLOGUARD 12/24/1995 COLON CANCER SCREENING 5 YEA R SIGMOIDOSCOPY 12/24/1995 CT COLONOGRAPHY 12/24/1995 FECAL OCCULT BLOOD TEST 12/24/1995 FIT Testing (1 year) 12/24/1995 ZOSTER VACCINE (1 of 2) 2000 ANNUAL WELLNESS VISIT 10/09/2016 HEPATITIS C SCREENING 10/09/2016 HEMOGLOBIN A1C 10/07/2022 04/09/2022, 11/0 08/2021, 06/26/2014 COLONOSCOPY 12/21/2022 12/21/2012 COLORECTAL CANCER SCREENING 12/21/2022 COVID-19 Vaccine (7 2023-2 5 season) 2024 03/11/2022, 03/12/2021, 07/22/2020, Additional history exists INFLUENZA VACCINE 03/07/2025 04/03/2021, , 02/23/2020, Additional history exists DXA SCAN 08/25/2026 08/25/2024, 08/06, 04/19/2023, Additional history exists MAMMOGRAM 10/26/2026 10/26/2024, 04/07, 04/11/2024, Additional history exists Pneumococcal Vaccine 50+ Completed 023, 03/07/2018, 03/12/2017, Additional history exists Procedures Procedure Name Priority Date/Time Associated Diagnosis Comments MAMMO DIAGNOSTIC DIGITAL TOMOSYNTHESIS RIGHT W CAD Routine 10/26/2024 3:09 PM EDT Abnormal mammogram DEXA BONE DENSITY AXIAL Routine 11/22/2018 3:16 PM EDT Menopause HEMOGLOBIN A1C Routine 06/26/2014 10:55 AM EST from Last 3 Months or Most Recently Relevant to Health Maintenance Results * Mammo Diagnostic Digital Tomosynthesis Right [...] distortion or suspicious microcalcifications in either breast. Noemi Aguila MD IMG MAMMOGRAPHY ORDERABLES Final Result * DEXA Bone Density Axial (11/22/2018 3:16 PM EDT) Anatomical Region Laterality Modality Wrist, Hip, L-spine N/A Other 11/23/2018 3:10 PM EDT Impressions 11/24/2018 12:42 PM EDT Bone mineral density results are within normal limits. The ten year fracture risk assessment was not calculated because all T-scores were at or above -1.0, and because the patient has reported a previous hip, or vertebral fracture. All the treatment decisions require clinical judgment and consideration of individual patient factors, including patient preferences, co-morbidities, previous drug use, risk factors not captured in the FRAX model (frailty, falls, vitamin D deficiency, increased bone turnover, interval significant decline in bone density) and possible under or over estimation of fracture risk by FRAX. Approaches to reduce osteoporosis related fracture risk include optimizing calcium and vitamin D status, appropriate weight bearing exercises and fall-prevention measurements. The National Osteoporosis Foundation recommends (http://www.nof.org/hcp/practice/ssyedwdc-vyx-nhfuamed-guidelines/clinic ans-guide) that FDA-approved medical therapies be considered in postmenopausal women and men aged equal or greater than 50 years with : a) hip or vertebral (clinical or morphometric) fracture; b) T-score of -2.5 or less at the spine or hip; c) Ten-year fracture probability by FRAX of greater than 3% for hip fracture of greater than 20% for major osteoporotic fracture. Secondary causes of bone loss should be evaluated if clinically indicated since the etiology of low BMD cannot be determined by BMD measurement alone. FOLLOWUP: Consider repeating the study in 2-3 years to reassess the patient's status or sooner if there is some new clinical indication. INTERVAL CHANGE: There were no previous studies for comparison. At this facility, the least significant change in the BMD at the left hip with 95% confidence is 0.729726 gm/cm2 at the hip and 0.452187 g/cm2 at the lumbar spine. This report was finalized on 11/24/2018 12:[address] Jose Latif. Narrative 11/24/2018 12:42 PM EDT DUAL-ENERGY X-RAY ABSORPTIOMETRY (DXA) INDICATION: Postmenopausal, screening for osteoporosis, height loss, prior fracture, seizure disorder, asthma or emphysema, hysterectomy COMPARISON: There are no previous studies for comparison PROCEDURE: A DXA scan was performed using a Hologic densitometer. The total right hip was evaluated as well as the right forearm. The T-score compares the patient's bone mineral density with the peak bone mass of young normal patients. According to criteria established by the World Health Organization, patients with T-scores between 1.0 and 2.5 standard deviations BELOW the mean are osteopenic (low bone mass). Patients with T-scores EQUAL TO OR GREATER than 2.5 standard deviations below the mean are osteoporotic. The Z-score compares the patient bone mineral density with age and sex matched peers. According to the International Society for Clinical Densitometry's 2007 consensus conference: In women prior to menopause and men less than age 50, Z-scores, not T-scores are preferred. A Z-score of -2.0 or lower is defined as below the expected range for age and a Z-score above -2.0 is within the expected range for age. The WHO diagnostic criteria may be applied in women in the menopausal transition. Osteoporosis cannot be diagnosed in men under age 50 on the basis of BMD alone. TECHNICAL QUALITY: The study is of good technical quality. RESULTS: Total Hip: The BMD measured at the right total proximal femur is 0.903 g/cm2. The T-score is -0.3. The Z-score is 1.1. Femoral neck: The BMD measured at the right femoral neck is 0.758 g/cm2. The T score is -0.8. The Z score is 0.9. 1/3 Radius: The BMD measured at the right one-third radius is 0.663 g/cm2. The T-score is -0.5. The Z-score is 1.4. Procedure Note Zhanna Solano PA - 11/24/2018 DUAL-ENERGY X-RAY ABSORPTIOMETRY (DXA) INDICATION: Postmenopausal, screening for osteoporosis, height loss, prior fracture, seizure disorder, asthma or emphysema, hysterectomy COMPARISON: There are no previous studies for comparison PROCEDURE: A DXA scan was performed using a Hologic densitometer. The total right hip was evaluated as well as the right forearm. The T-score compares the patient's bone mineral density with the peak bone mass of young normal patients. According to criteria established by the World Health Organization, patients with T-scores between 1.0 and 2.5 standard deviations BELOW the mean are osteopenic (low bone mass). Patients with T-scores EQUAL TO OR GREATER than 2.5 standard deviations below the mean are osteoporotic. The Z-score compares the patient bone mineral density with age and sex matched peers. According to the International Society for Clinical Densitometry's 2007 consensus conference: In women prior to menopause and men less than age 50, Z-scores, not T-scores are preferred. A Z-score of -2.0 or lower is defined as below the expected range for age and a Z-score above -2.0 is within the expected range for age. The WHO diagnostic criteria may be applied in women in the menopausal transition. Osteoporosis cannot be diagnosed in men under age 50 on the basis of BMD alone. TECHNICAL QUALITY: The study is of good technical quality. RESULTS: Total Hip: The BMD measured at the right total proximal femur is 0.903 g/cm2. The T-score is -0.3. The Z-score is 1.1. Femoral neck: The BMD measured at the right femoral neck is 0.758 g/cm2. The T score is -0.8. The Z score is 0.9. 1/3 Radius: The BMD measured at the right one-third radius is 0.663 g/cm2. The T-score is -0.5. The Z-score is 1.4. IMPRESSION: Bone mineral density results are within normal limits. The ten year fracture risk assessment was not calculated because all T-scores were at or above -1.0, and because the patient has reported a previous hip, or vertebral fracture. All the treatment decisions require clinical judgment and consideration of individual patient factors, including patient preferences, co-morbidities, previous drug use, risk factors not captured in the FRAX model (frailty, falls, vitamin D deficiency, increased bone turnover, interval significant decline in bone density) and possible under or over estimation of fracture risk by FRAX. Approaches to reduce osteoporosis related fracture risk include optimizing calcium and vitamin D status, appropriate weight bearing exercises and fall-prevention measurements. The National Osteoporosis Foundation recommends (http://www.nof.org/hcp/practice/sxbantjh-xyb-pdfcfebm-guidelines/clinic ans-guide) that FDA-approved medical therapies be considered in postmenopausal women and men aged equal or greater than 50 years with : a) hip or vertebral (clinical or morphometric) fracture; b) T-score of -2.5 or less at the spine or hip; c) Ten-year fracture probability by FRAX of greater than 3% for hip fracture of greater than 20% for major osteoporotic fracture. Secondary causes of bone loss should be evaluated if clinically indicated since the etiology of low BMD cannot be determined by BMD measurement alone. FOLLOWUP: Consider repeating the study in 2-3 years to reassess the patient's status or sooner if there is some new clinical indication. INTERVAL CHANGE: There were no previous studies for comparison. At this facility, the least significant change in the BMD at the left hip with 95% confidence is 0.976552 gm/cm2 at the hip and 0.130314 g/cm2 at the lumbar spine. This report was finalized on 11/24/2018 12:[address] Jose Latif. us Jacky Quezada MD IMG DXA ORDERABLES Final Result * (ABNORMAL) Hemoglobin A1c (06/26/2014 10:55 AM EST) Hemoglobin A1C 6.5(H) 4.00 - 6.00 % [facility] Comment: DF by IF @ 06/26/2014 11:44 The [place] [employer] recommends maintenance of Hemoglobin A1C at 7.0% or lower. Goals for Hemoglobin A1C reduction may need to be modified if hypoglycemia is a problem. Mean Bld Glu Estim. 135 mg/dL [facility] Blood specimen (specimen) 06/26/2014 10:55 AM EST Narrative [facility] - 06/26/2014 11:44 AM EST Specimen Type: Blood us Curt Gipson MD LAB BLOOD ORDERABLES Final Resu lt [facility] [address] [place] [address], from Last 3 Months or Most Recently Relevant to Health Maintenance Insurance [place] [id number] [facility] SU[facility] Medicare Advantage [employer] PPO Care Teams Geologic Technician Relationship Specialty Start Date End Date Gary Roberts MD [address] [facility] [id number] [place] [id number] PCP - General 11/11/15
--- OUTSIDE RECORDS SUMMARY | 2024-12-26 10:36 | XMS_ITS | Patient Health Record ---
[facility] [address] [place] [id number] Care Team Providers Care Waiter/Waitress Club Name Role Phone Samy Roberts Primary Care Provider Paulzahida Gretchen Unavailable [phone] Allergies Allergen (clinical drug ingredient) Drug/Non Drug [...] (substance) Sulfa Antibiotics Unknown Drug Allergy Active Results Component Value Reference Range Notes H-Lipid Panel (Not yet revie wed by provider) Interpretation: Performing Lab: Notes/Report: Patient Fasting? Y TRIG 130 30-150 mg/dl CHOL 164 140-200 mg/dl DLDL 54.52 100-129 mg/dL VLDL 26 0-40 mg/dL HDL 63 40-60 mg/dl CHLHDL 2.6 1-3.5 H-CMP (Not yet reviewed by gabrielle lock) Interpretation: Performing Lab: Notes/Report: NA 138 136-145 mmol/L K 4.0 3.5-5.1 mmoL/L CL 100 98-107 mmol/L CO2 30 22.0-30.0 mmol/L GAP 12.0 5-15 mEq/L BUN 19 7-17 mg/dl CREATT 0.80 0.52-1.04 mg/dl GFRAA 85 >60 ML/MIN EGFR 70 >60 ml/min GLU 103 74-100 mg/dl CA 9.2 8.4-10.2 mg/dl BILIT 0.5 0.2-1.3 mg/dl AST 42 14-36 U/L ALT 27 12-78 U/L TP 6.7 6.3-8.2 g/dl ALB 4.2 3.5-5.0 g/dl GLOB 2.5 1.3-3.2 g/dL AGRATIO 1.7 1.1-1.8 ALP 73 38-126 U/L H-URIC ACID (Not yet reviewe d by provider) Interpretation: Performing Lab: Notes/Report: URIC 4.8 2.5-6.2 mg/dl H-Iron (Not yet reviewed by provider) Interpretation: Performing Lab: Notes/Report: FE 55 37-170 ug/dL H-Iron Reviewed date:12/11/2024 12:47:43 PM Interpretation:see cmp Performing Lab: Notes/Report: see cmp H-URIC ACID Reviewed date:12/11/2024 12:47:58 PM Interpretation:see cmp Performing Lab: Notes/Report: see cmp H-CMP Reviewed date:12/13/2024 02:48:28 PM Interpretation: Performing Lab: Notes/Report: H-Lipid Panel Reviewed date:12/11/2024 12:48:16 PM Interpretation:see cmp Performing Lab: Notes/Report: see cmp H-CBC (Not yet reviewed by gabrielle lock) Interpretation: Performing Lab: Notes/Report: WBC 10.1 4.8-10.8 K/mm3 RBC 4.21 4.20-5.40 M/mm3 HGB 11.0 12.2-16.2 g/dL HCT 37.0 37.0-47.0 % MCV 87.9 81-99 fl MCH 26.1 27.0-31.2 pg MCHC 29.7 31.8-35.4 g/dL RDW-SD 46.4 RDW 14.6 11.5-17.5 % PLT 299 142-424 K/mm3 MPV 10.2 7.4-10.4 fl NE% 61.6 37.0-80.0 % LY% 29.0 10-50 % MO% 5.7 1.7-9.3 % EO% 2.4 0.1-12.0 % BA% 0.9 0.1-2.0 % NRBC% 0 IG% 0.4 NE# 6.2 1.8-7.8 K/mm3 LY# 2.9 0.7-4.5 K/mm3 MO# 0.6 0.1-1.0 K/mm3 EO# 0.2 0.0-0.4 Kmm3 BA# 0.1 0-0.2 K/mm3 NRBC# 0 IG# 0.04 CBC Fingerstick (in house) Reviewed date:03/21/2024 12:02:23 PM Interpretation: Performing Lab: Notes/Report: wbc 9.6 3.5 - 10 lym 21.6 15 - 50 mid 4.5 2 - 15 gran 73.9 35 - 80 rbc 3.75 3.5 - 5.5 hgb 10.4 11.5 - 16.5 hct 33.6 35 - 55 mcv 89.6 75 - 100 mch 27.8 25 - 35 mchc 31.1 31 - 38 plat 302 100 - 400 CBC Fingerstick (in house) Reviewed date:10/03/2024 08:01:11 PM Interpretation: Performing Lab: Notes/Report: wbc 12.9 3.5 - 10 lym 19.6 15 - 50 mid 6.1 2 - 15 gran 74.3 35 - 80 rbc 4.07 3.5 - 5.5 hgb 11.4 11.5 - 16.5 hct 35.4 35 - 55 mcv 86.7 75 - 100 mch 28.0 25 - 35 mchc 32.3 31 - 38 plat 315 100 - 400 CBC Fingerstick (in house) Reviewed date:10/22/2024 11:23:03 PM Interpretation: Performing Lab: Notes/Report: wbc 10.5 3.5 - 10 lym 31.3 15 - 50 mid 7.1 2 - 15 gran 61.6 35 - 80 rbc 4.19 3.5 - 5.5 hgb 11.5 11.5 - 16.5 hct 36.1 35 - 55 mcv 86.1 75 - 100 mch 27.5 25 - 35 mchc 31.9 31 - 38 plat 259 100 - 400 H-Keppra (Not yet reviewed b y provider) Interpretation: Performing Lab: Notes/Report: LEV 63.2 10.0-40.0 ug/mL Performed at: [address] [id number] Forging Engineer: Emmett Savage MD, Phone: [phone] CMP Reviewed date:03/14/2024 01:53:34 PM Interpretation: Performing Lab: Notes/Report: VITAMIN D, 25-HYDROXY Reviewed date:03/14/2024 01:53:49 PM Interpretation: Performing Lab: Notes/Report: CBC Reviewed date:03/14/2024 01:54:12 PM Interpretation: Performing Lab: Notes/Report: H-CBC Reviewed date:03/19/2024 10:37:44 PM Interpretation:rbc 3.9, hgb 11.2, hct 34.7 Performing Lab: Notes/Report: WBC 9.5 4.8-10.8 K/mm3 RBC 3.90 4.20-5.40 M/mm3 HGB 11.2 12.2-16.2 g/dL HCT 34.7 37.0-47.0 % MCV 89.1 81-99 fl MCH 28.7 27.0-31.2 pg MCHC 32.2 31.8-35.4 g/dL RDW 15.4 11.5-17.5 % PLT 319 142-424 K/mm3 MPV 7.7 7.4-10.4 fl NE% 69.0 37.0-80.0 % LY% 22.3 10-50 % MO% 4.3 1.7-9.3 % EO% 3.4 0.1-12.0 % BA% 0.9 0.1-2.0 % NE# 6.5 1.8-7.8 K/mm3 LY# 2.1 0.7-4.5 K/mm3 MO# 0.4 0.1-1.0 K/mm3 EO# 0.3 0.0-0.4 K/mm3 BA# 0.1 0-0.2 K/mm3 H-VITAMIN D Reviewed date:03/19/2024 10:37:44 PM Interpretation:43.6 Performing Lab: Notes/Report: TVITD 43.6 30-100 ng/mL Deficient <20 ng/mL Insufficient 20-30 ng/mL Sufficient 30-100 ng/mL Potential Toxicity >100 ng/mL H-Lipid Panel Reviewed date:03/19/2024 10:37:44 PM Interpretation:dldl 59, hdl 67 Performing Lab: Notes/Report: Patient Fasting? Y TRIG 126 30-150 mg/dl CHOL 164 140-200 mg/dl DLDL 58.95 100-129 mg/dL VLDL 25 0-40 mg/dL HDL 67 40-60 mg/dl CHLHDL 2.4 1-3.5 H-CMP Reviewed date:03/19/2024 10:37:44 PM Interpretation:bun 18, gluc 113 Performing Lab: Notes/Report: NA 137 136-145 mmol/L K 4.6 3.5-5.1 mmoL/L CL 103 98-107 mmol/L CO2 26 22.0-30.0 mmol/L GAP 12.6 5-15 mEq/L BUN 18 7-17 mg/dl CREATT 0.80 0.52-1.04 mg/dl GFRAA 85 >60 ML/MIN EGFR 70 >60 ml/min GLU 113 74-100 mg/dl CA 9.1 8.4-10.2 mg/dl BILIT 0.7 0.2-1.3 mg/dl AST 35 14-36 U/L ALT 26 12-78 U/L TP 6.6 6.3-8.2 g/dl ALB 4.1 3.5-5.0 g/dl GLOB 2.5 1.3-3.2 g/dL AGRATIO 1.6 1.1-1.8 ALP 89 38-126 U/L H-Glycohemoglobin A1C Reviewed date:03/19/2024 10:37:44 PM Interpretation:6.2 Performing Lab: Notes/Report: HGBA1C 6.2 4.0-6.0 % < 6% Non-Diabetic Level < 7% Controlled Diabetic Level > 8% Poorly Controlled Diabetic Level H-URIC ACID Reviewed date:03/19/2024 10:37:44 PM Interpretation:Normal Performing Lab: Notes/Report: URIC 4.6 2.5-6.2 mg/dl H-Iron Reviewed date:03/19/2024 10:37:44 PM Interpretation:Normal Performing Lab: Notes/Report: FE 69 37-170 ug/dL Urinalysis - Inhouse Reviewed date:04/13/2024 04:56:16 PM Interpretation: Performing Lab: Notes/Report: Color/Clarity yellow/clear Leuk trace Nitrite neg Urobili 3.2 Protein neg pH 5.5 Blood neg Sp. Gr. <=1.005 Ketone neg Bili neg Gluc neg TEN-UTI panel Reviewed date:04/17/2024 12:48:10 PM Interpretation:Abnormal Performing Lab: Notes/Report: Abnormal CT Scan : Sinuses, without c ontrast Reviewed date:05/02/2024 08:21:25 AM Interpretation:unremarkable Performing Lab: Notes/Report: unremarkable Iron Reviewed date:03/14/2024 01:53:22 PM Interpretation: Performing Lab: Notes/Report: Uric acid Reviewed date:03/14/2024 01:53:10 PM Interpretation: Performing Lab: Notes/Report: Glycohemoglobin (HbA1C) Reviewed date:03/14/2024 01:52:58 PM Interpretation: Performing Lab: Notes/Report: Lipid Profile Reviewed date:03/14/2024 01:52:45 PM Interpretation: Performing Lab: Notes/Report: Covid test (in house) Reviewed date:01/21/2024 05:24:27 PM Interpretation:Negative Performing Lab: Notes/Report: Negative Result: neg CBC Fingerstick (in house) Reviewed date:01/21/2024 05:24:20 PM Interpretation: Performing Lab: Notes/Report: wbc 9.3 3.5 - 10 lym 27.3 15 - 50 mid 5.7 2 - 15 gran 67.0 35 - 80 rbc 3.78 3.5 - 5.5 hgb 10.6 11.5 - 16.5 hct 33.7 35 - 55 mcv 89.2 75 - 100 mch 28.0 25 - 35 mchc 31.4 31 - 38 plat 265 100 - 400 Influenza Screen (in house) Reviewed date:01/21/2024 05:24:34 PM Interpretation:Negative Performing Lab: Notes/Report: Negative results neg Medications Medication SIG (Take, Route, Frequency, Duration) Notes Start Date End Date Status ZyrTEC Allergy 10 MG 1 tab(s) orally onc e a day Not-Taking Olmesartan Medoxomil 20 mg take 1 tablet orally once a day; Duration: 90 days Active Rosuvastatin Calcium 10 mg TAKE ONE TABLET BY MOUTH EVERY DAY; Duration: 90 Active Allopurinol 300 mg TAKE ONE TABLET BY MOUTH EVERY DAY; Duration: 90 Active Furosemide 20 MG 1 tablet Orally once daily; Duration: 90 days Active Nystatin-Triamcinolone 115240-4.1 UNIT/GM 1 application Externally Twice a day 04/28/2024 Active Multiple Vitamin - 1 cap(s) orally once a day; Duration: 30 day(s) Active Zenpep 50405-36920 UNIT 1 cap(s) Orally Three times a day Active Calcium 600 + Minerals 600-200 MG-UNIT 2 tab(s) orally once a day; Duration: 30 day(s) Active Qvar RediHaler 40 MCG/ACT 2 puff(s) inha led 2 times a day Not-Taking Montelukast Sodium 10 MG 1 tab(s) orally once a day Not-Taking Cyclobenzaprine HCl 5 MG 1 tablet Orally twice a day 12/21/2024 Active Xhance 93 MCG/ACT 1 spray(s) in each nostril 2 times a day Not-Taking Gabapentin 100 MG 2 caps orally qid Active CareTouch CPAP & BIPAP Hose as directed 08/18/2021 Active Aspirin 81 81 MG 1 tablet Orally Once a day; Duration: 30 day(s) Active Albuterol Sulfate HFA 108 (90 Base) MCG/ACT 1 puff as needed Inhalation every 4 hrs Active Prolia 60 MG/ML as directed Subcutaneous every 6 months Active Omeprazole 40 MG 1 cap(s) orally once a day Active Olopatadine HCl 0.1 % 1 drop into affect ed eye Ophthalmic Twice a day Active Keppra XR 500 MG 1 q am, 4 q hs orally Active Fish Oil 1200 MG 1 cap(s) orally once daily Active Azelastine HCl 137 MCG/SPRAY 2 spray(s) intranasally 2 times a day Active Vagifem 10 MCG 1 tab(s) intravagina lly 3 times a week Active Immunizations Vaccine Route Administration Date Status Comme nts COVID 19 Moderna Unknown 06/12/2020 Administered COVID 19 Moderna Unknown 07/10/2020 Administered Fluzone High Dose (65yr and older) IM Intramuscular 02/14/2016 Administered Hepatitis A (adult) IM Intramuscular 09/24/2018 Administer ed Varivax Unknown 03/29/2007 Administered Varivax Unknown 05/24/2007 Administered Varivax Unknown 05/24/2007 Administered xFlu shot-36 months and older IM Intramuscular 02/27/2009 Administered xFlu shot-36 months and older IM 04/07/2010 Administered xFluzone Intradermal (18-64yrs)-trivalent ID Intradermal 03/11/2012 Administered xFlu shot-36 months and older IM Intramuscular 03/26/2008 Administered xFlu shot-36 months and older IM Intramuscular 03/12/2007 Administered Tetanus Tdap-Adacel (over 7yrs) ID Intradermal 04/12/2015 Administered Prevnar (PCV20) IM Intramuscular 04/20/2023 Administered Prevnar (PCV13) IM Intramuscular 03/13/2016 Administered PNEUMOVAX 23 VACCINE IM Intramuscular 03/11/2012 Administe red Fluzone High Dose (65yr and older) IM Intramuscular 03/07/2024 Administered Fluzone High Dose (65yr and older) IM Intramuscular 04/20/2023 Administered Fluzone High Dose (65yr and older) IM Intramuscular 03/24/2019 Administered xFluzone (6mos and older)-trivalent IM Intramuscular 03/26/2014 Administered xFlu shot-36 months and older IM Intramuscular 04/24/2005 Administered Fluzone High Dose (65yr and older) IM Intramuscular 02/23/2020 Administered Fluzone High Dose (65yr and older) IM Intramuscular 03/03/2018 Administered Fluzone High Dose (65yr and older) IM Intramuscular 04/03/2021 Administered xFluzone (6mos and older)-trivalent IM Intramuscular 05/19/2013 Administered Hepatitis A (adult) Unknown 03/23/2018 Administered xFlu shot-36 months and older IM Intramuscular 03/13/2011 Administered PNEUMOVAX 23 VACCINE IM Intramuscular 03/12/2017 Administe red Fluzone High Dose (65yr and older) IM Intramuscular 03/12/2017 Administered xFlu shot-36 months and older IM Intramuscular 04/21/2006 Administered COVID 19 Moderna Unknown 03/12/2021 Administered Problems Problem Type SNOMED Code ICD Code Onset Dates Problem Status W/U Status Risk Notes Problem Hypertension (95323346) HTN (hypertension) (I10) Active confirmed Problem Chronic renal insufficiency (879711456) Chronic renal insufficiency (N18.9) Active confirmed Problem Venous insufficiency of leg (disorder) (648983645) Venous insufficiency (I87.2) Active confirmed Problem Seasonal allergy (892703346) Seasonal allergies (J30.2) Active confirmed Problem Chronic sinusitis (96361870) Chronic sinusitis (J32.9) Active confirmed Problem Hyperuricemia (84377249) Hyperuricemia (E79.0) Active confirmed Problem BMI 30+ - obesity (826628722) BMI 32.0-32.9,adult (Z68.32) Active confirmed Problem Obese class I (409495009945510) BMI 33.0-33.9,adult (Z68.33) Active confirmed Problem Seizure disorder (385067832) Seizure disorder (G40.909) Active confirmed Problem Cataract (761594029) Cataract (H26.9) Active confirmed Problem Generalized osteoarthritis (479105578) Generalized osteoarthritis (M15.9) Active confirmed Problem Depressive disorder (40030823) Depressive disorder (F32.9) Active confirmed Problem Gastroesophageal reflux disease without esophagitis (508788915) Gastroesophageal reflux disease without esophagitis (K21.9) Active confirmed Problem Allergic rhinitis (61437144) Allergic rhinitis (J30.9) Active confirmed Problem Lumbosacral spondylosis without myelopathy (62217626) 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 myelopathy or radiculopathy (M47.816) Active confirmed Problem Obstructive sleep apnea syndrome (91554499) CHER (obstructive sleep apnea) (G47.33) Active confirmed Problem Iron deficiency anemia (70269663) Iron deficiency anemia, unspecified iron deficiency anemia type (D50.9) Active confirmed Problem Dyslipidemia (232675388) Dyslipidemia (E78.5) Active confirmed Problem Ulcer of left foot (disorder) (458704229) Foot ulcer, left, with unspecified severity (L97.529) Active confirmed Problem Seasonal allergic rhinitis (001194098) Seasonal allergic rhinitis, unspecified trigger (J30.2) Active confirmed Problem Allergic rhinitis (78768584) Allergic rhinitis, unspecified seasonality, unspecified trigger (J30.9) Active confirmed Problem Allergic rhinitis (80894258) Acute allergic rhinitis (J30.9) Active confirmed Problem Allergic rhinitis (02638957) Allergic rhinitis due to other allergic trigger, unspecified seasonality (J30.89) Active confirmed Vital Signs Heart Rate 94 /min 12/14/2024 Blood pressure diastolic 70 mm Hg 12/14/2024 Height 64.50 in 12/14/2024 Blood pressure systolic 120 mm Hg 12/14/2024 Weight 192.8 lbs 12/14/2024 BMI 32.58 kg/m2 12/14/2024 Encounters Encounter Location Date Provider Diagnosis Nikki 1210 [facility] [address] [place] [id number] 01/21/2024 Gretchen Oconnell Acute URI J06.9 [facility] [address] [place] [id number] 03/07/2024 R Broderick Armando Adult general medica l examination Z00.00 ; HTN (hypertension) I10 ; Dyslipidemia E78.5 ; Hyperuricemia E79.0 ; Gastroesophageal reflux disease without esophagitis K21.9 ; Seasonal allergies J30.2 ; 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 myelopathy or radiculopathy M47.816 ; Seizure disorder G40.909 ; CHER (obstructive sleep apnea) G47.33 ; Iron deficiency anemia, unspecified iron deficiency anemia type D50.9 and BMI 33.0-33.9,adult Z68.33 [facility] [address] [place] [id number] 03/16/2024 R Broderick Armando Seasonal allergies J 30.2 [facility] [address] [place] [id number] 03/21/2024 R Broderick Armando Acute sinusitis J01. 90 [facility] [address] [place] [id number] 03/24/2024 R Broderick Armando Allergic rhinitis, unspecified seasonality, unspecified trigger J30.9 [facility] [address] [place] [id number] 03/30/2024 R Broderick Armando Acute sinusitis J01. 90 and Allergic rhinitis J30.9 Thierry 1210 [facility] [address] [place] [id number] 04/07/2024 R Broderick Armando Allergic rhinitis J3 0.9 [facility] [address] [place], [place] [id number] 04/13/2024 R Broderick Armando Chronic sinusitis J3 2.9 ; Foot pain M79.673 ; Dysuria R30.0 and Allergic rhinitis, unspecified seasonality, unspecified trigger J30.9 [facility] [address] [place], [place] [id number] 04/21/2024 R Broderick Armando Allergic rhinitis J3 0.9 [facility] [address] [place], [place] [id number] 04/28/2024 Gretchen Crowdy Yeast infection B37. 9 [facility] [address] [place], [place] [id number] 05/05/2024 R Broderick Armando Seasonal allergies J 30.2 [facility] [address] [place], [place] [id number] 05/12/2024 R Broderick Armando [facility] [address] [place], [place] [id number] 05/18/2024 R Broderick Armando Seasonal allergies J 30.2 [facility] [address] [place], [place] [id number] 05/25/2024 R Broderick Armando Seasonal allergies J 30.2 and Leg edema R60.0 [facility] [address] [place], [place] [id number] 06/01/2024 R Broderick Armando Seasonal allergies J 30.2 [facility] [address] [place], [place] [id number] 06/09/2024 R Broderick Armando Allergic rhinitis J3 0.9 [facility] [address] [place], [place] [id number] 06/15/2024 R Broderick Armando Allergic rhinitis, unspecified seasonality, unspecified trigger J30.9 [facility] [address] [place], [place] [id number] 06/21/2024 R Broderick Armando [facility] [address] [place], [place] [id number] 06/29/2024 R Broderick Armando Allergic rhinitis, unspecified seasonality, unspecified trigger J30.9 [facility] [address] [place], [place] [id number] 08/10/2024 R Broderick Armando Allergic rhinitis, unspecified seasonality, unspecified trigger J30.9 [facility] [address] [place], [place] [id number] 08/17/2024 R Broderick Armando Allergic rhinitis J3 0.9 [facility] [address] [place] [id number] 08/24/2024 R Broderick Armando Allergic rhinitis J3 0.9 [facility] [address] [place] [id number] 09/07/2024 R Broderick Armando Allergic rhinitis J3 0.9 [facility] [address] [place], [place] [id number] 09/13/2024 R Broderick Armando Allergic rhinitis J3 0.9 and Acute allergic rhinitis J30.9 [facility] [address] [place] [id number] 09/21/2024 R Broderick Armando Seasonal allergies J 30.2 [facility] [address] [place], [place] [id number] 09/28/2024 R Broderick Armando Allergic rhinitis J3 0.9 [facility] [address] [place] [id number] 10/03/2024 R Broderick Armando Acute sinusitis J01. 90 [facility] [address] [place] [id number] 10/05/2024 R Broderick Armando [facility] [address] [place] [id number] 10/06/2024 R Broderick Armando Allergic rhinitis J3 0.9 [facility] [address] [place] [id number] 10/12/2024 R Broderick Armando Allergic rhinitis J3 0.9 [facility] [address] [place], [place] [id number] 10/20/2024 Gretchen Oconnell Acute URI J06.9 and HTN (hypertension) I10 [facility] [address] [place], [place] [id number] 10/31/2024 R Broderick Armando Allergic rhinitis J3 0.9 [facility] [address] [place], [place] [id number] 11/17/2024 R Broderick Armando Allergic rhinitis du e to other allergic trigger, unspecified seasonality J30.89 [facility] [address] [place], [place] [id number] 11/23/2024 R Broderick Armando [facility] [address] [place], [place] [id number] 12/12/2024 R Broderick Armando Adult general medica l examination Z00.00 ; HTN (hypertension) I10 ; Dyslipidemia E78.5 ; Hyperuricemia E79.0 ; Iron deficiency anemia, unspecified iron deficiency anemia type D50.9 ; Seizure disorder G40.909 ; Gastroesophageal reflux disease without esophagitis K21.9 ; Seasonal allergies J30.2 ; CHER (obstructive sleep apnea) G47.33 and BMI 32.0-32.9,adult Z68.32 [facility] [address] [place], [place] [id number] 12/14/2024 R Broderick Armando Muscle strain of rig ht upper back, initial encounter S29.012A and Seasonal allergic rhinitis, unspecified trigger J30.2 [facility] [address] [place] [id number] 12/21/2024 R Broderick Armando Seasonal allergic rhinitis, unspecified trigger J30.2 [facility] [address] [place] [id number] 01/27/2024 Gretchen Oconnell [facility] [address] [place] [id number] 01/27/2024 Gretchen Oconnell [facility] [address] [place], [place] [id number] 01/28/2024 R Broderick Armando Acute URI J06.9 [facility] [address] [place], [place] [id number] 03/19/2024 R Broderick Armando [facility] [address] [place] [id number] 04/10/2024 R Broderick Armando Left foot pain M79.6 72 [facility] [address] [place], [place] [id number] 04/17/2024 R Broderick Armando [facility] [address] [place], [place] [id number] 05/02/2024 R Broderick Armando [facility] [address] [place], [place] [id number] 06/21/2024 R Broderick Armando [facility] [address] [place], [place] [id number] 08/09/2024 R Broderick Armando [facility] [address] [place], [place] [id number] 10/05/2024 R Broderick Armando Leg edema R60.0 [facility] [address] [place], [place] [id number] 11/15/2024 R Broderick Armando [facility] [address] [place], [place] [id number] 11/30/2024 R Broderick Armando HTN (hypertension) I 10 ; Dyslipidemia E78.5 ; Hyperuricemia E79.0 ; Iron deficiency anemia, unspecified iron deficiency anemia type D50.9 and Seizure disorder G40.909 [facility] [address] [place], [place] [id number] 12/21/2024 R Broderick Armando CHER (obstructive sle ep apnea) G47.33 [facility] [address] [place], [place] [id number] 12/21/2024 Samy Roberts Assessments Encounter Date Diagnosis (ICD Code) Assessment Notes Treatment Notes Treatment Clinical Notes Section Notes 03/24/2024 Allergic rhinitis, unspecified seasonality, unspecified trigger (ICD-10 - J30.9) 06/15/2024 Allergic rhinitis, unspecified seasonality, unspecified trigger (ICD-10 - J30.9) 06/29/2024 Allergic rhinitis, unspecified seasonality, unspecified trigger (ICD-10 - J30.9) 08/10/2024 Allergic rhinitis, unspecified seasonality, unspecified trigger (ICD-10 - J30.9) 08/17/2024 Allergic rhinitis (ICD-10 - J30.9) 08/24/2024 Allergic rhinitis (ICD-10 - J30.9) 09/07/2024 Allergic rhinitis (ICD-10 - J30.9) 09/13/2024 Allergic rhinitis (ICD-10 - J30.9) 04/21/2024 Allergic rhinitis (ICD-10 - J30.9) 04/28/2024 Yeast infection (ICD-10 - B37.9) 05/05/2024 Seasonal allergies (ICD-10 - J30.2) 05/18/2024 Seasonal allergies (ICD-10 - J30.2) 05/25/2024 Seasonal allergies (ICD-10 - J30.2) 05/25/2024 Leg edema (ICD-10 - R60.0) Continue compression stockings. Elevate legs when possible. 06/01/2024 Seasonal allergies (ICD-10 - J30.2) 06/09/2024 Allergic rhinitis (ICD-10 - J30.9) 09/21/2024 Seasonal allergies (ICD-10 - J30.2) 09/28/2024 Allergic rhinitis (ICD-10 - J30.9) 10/03/2024 Acute sinusitis (ICD-10 - J01.90) 10/05/2024 Leg edema (ICD-10 - R60.0) 10/06/2024 Allergic rhinitis (ICD-10 - J30.9) 10/12/2024 Allergic rhinitis (ICD-10 - J30.9) 10/20/2024 HTN (hypertension) (ICD-10 - I10) 10/20/2024 Acute URI (ICD-10 - J06.9) 10/31/2024 Allergic rhinitis (ICD-10 - J30.9) 11/17/2024 Allergic rhinitis due to other allergic trigger, unspecified seasonality (ICD-10 - J30.89) 11/30/2024 HTN (hypertension) (ICD-10 - I10) 11/30/2024 Dyslipidemia (ICD-10 - E78.5) 12/12/2024 HTN (hypertension) (ICD-10 - I10) 12/12/2024 Adult general medical examination (ICD-10 - Z00.00) Patient instructed to return to office Annually for Annual Wellness Visits to include annual screenings of Pain assessment, Functional Ability assessment, Cognitive Ability assessment, Fall Risk assessment, Depression screening and Bladder control screening. 12/14/2024 Muscle strain of right upper back, initial encounter (ICD-10 - S29.012A) Alternate heat and ice. Instructed on gentle stretching exercises. 12/14/2024 Seasonal allergic rhinitis, unspecified trigger (ICD-10 - J30.2) 12/21/2024 CHER (obstructive sleep apnea) (ICD-10 - G47.33) 12/21/2024 Seasonal allergic rhinitis, unspecified trigger (ICD-10 - J30.2) 03/30/2024 Acute sinusitis (ICD-10 - J01.90) 03/30/2024 Allergic rhinitis (ICD-10 - J30.9) 04/07/2024 Allergic rhinitis (ICD-10 - J30.9) 04/10/2024 Left foot pain (ICD-10 - M79.672) 03/07/2024 Adult general medical examination (ICD-10 - Z00.00) Patient instructed to return to office Annually for Annual Wellness Visits to include annual screenings of Pain assessment, Functional Ability assessment, Cognitive Ability assessment, Fall Risk assessment, Depression screening and Bladder control screening. 03/16/2024 Seasonal allergies (ICD-10 - J30.2) 03/21/2024 Acute sinusitis (ICD-10 - J01.90) 04/13/2024 Chronic sinusitis (ICD-10 - J32.9) 04/13/2024 Foot pain (ICD-10 - M79.673) 01/21/2024 Acute URI (ICD-10 - J06.9) Covid and flu are negative. CBC is not bacterial. Will treat symptomatically . Patient has cough medication and an inhaler if she needs it. 01/28/2024 Acute URI (ICD-10 - J06.9) 03/07/2024 HTN (hypertension) (ICD-10 - I10) 04/13/2024 Dysuria (ICD-10 - R30.0) 03/07/2024 Dyslipidemia (ICD-10 - E78.5) 12/12/2024 Dyslipidemia (ICD-10 - E78.5) 11/30/2024 Hyperuricemia (ICD-10 - E79.0) 09/13/2024 Acute allergic rhinitis (ICD-10 - J30.9) 12/12/2024 Hyperuricemia (ICD-10 - E79.0) 11/30/2024 Iron deficiency anemia, unspecified iron deficiency anemia type (ICD-10 - D50.9) 03/07/2024 Hyperuricemia (ICD-10 - E79.0) 04/13/2024 Allergic rhinitis, unspecified seasonality, unspecified trigger (ICD-10 - J30.9) 03/07/2024 Gastroesophageal reflux disease without esophagitis (ICD-10 - K21.9) 12/12/2024 Iron deficiency anemia, unspecified iron deficiency anemia type (ICD-10 - D50.9) 11/30/2024 Seizure disorder (ICD-10 - G40.909) 12/12/2024 Seizure disorder (ICD-10 - G40.909) 03/07/2024 Seasonal allergies (ICD-10 - J30.2) 03/07/2024 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) 12/12/2024 Gastroesophageal reflux disease without esophagitis (ICD-10 - K21.9) 12/12/2024 Seasonal allergies (ICD-10 - J30.2) 03/07/2024 Seizure disorder (ICD-10 - G40.909) 03/07/2024 CHER (obstructive sleep apnea) (ICD-10 - G47.33) 12/12/2024 CHER (obstructive sleep apnea) (ICD-10 - G47.33) 12/12/2024 BMI 32.0-32.9,adult (ICD-10 - Z68.32) 03/07/2024 Iron deficiency anemia, unspecified iron deficiency anemia type (ICD-10 - D50.9) 03/07/2024 BMI 33.0-33.9,adult (ICD-10 - Z68.33) Plan Of Treatment Pending Test Test Name Order Date Uric acid 11/12/2020 H-CBC 11/30/2024 H-CBC 04/20/2023 H-Lipid Panel 04/20/2023 H-Lipid Panel 12/05/2024 H-CMP 12/05/2024 H-CMP 04/20/2023 H-Glycohemoglobin A1C 04/20/2023 H-URIC ACID 12/05/2024 H-URIC ACID 05/10/2023 H-Iron 04/20/2023 H-Iron 12/05/2024 H-Keppra 11/30/2024 Insurance Providers Payer Name Payer Address Payer Phone Subscriber Number Group Number Insured Name Patient Relationship to Insured Coverage Start Date Coverage End Date [facility] [address] [address] [place] [address] [id number] ISMAEL CARTER Self - patient is the insured [facility] [address] [place] [address] [phone] [id number] ISMAEL CARTER Self - patient is the insured Medications Administered Medication Instructions Date of Administration Dosage Notes allergy 02/09/2015 0.15 mL allergy 02/09/2015 0.15 mL allergy 01/17/2016 0.10 mL allergy 02/14/2016 0.10 mL allergy 02/14/2016 0.10 mL allergy 02/21/2016 0.10 mL allergy 02/21/2016 0.10 mL allergy 03/13/2016 .10 mL allergy 03/13/2016 .10 mL allergy 03/20/2016 0.05 mL allergy 03/20/2016 0.05 mL allergy 03/27/2016 .10 allergy 03/27/2016 .10 allergy 04/03/2016 0.15 mL allergy 04/03/2016 0.15 mL allergy 05/22/2016 0.50 mg allergy 05/22/2016 0.50 mg allergy 05/29/2016 0.05 mg allergy 05/29/2016 0.05 mg allergy 06/05/2016 0.10 mL allergy 06/05/2016 0.10 mL allergy 06/12/2016 0.15 mL allergy 06/12/2016 0.15 mL allergy 06/19/2016 0.20 mL allergy 06/19/2016 0.20 mL allergy 10/30/2016 .50 mL Gave .50. THe dose should have been .10 allergy 10/30/2016 .10 mL allergy 11/27/2016 0.20 mL allergy 11/27/2016 0.20 mL allergy 12/05/2016 0.25 mL allergy 12/05/2016 0.25 mL allergy 12/11/2016 30 mL allergy 12/11/2016 30 mL allergy 12/18/2016 0.35 mL allergy 12/18/2016 0.35 mL allergy 12/26/2016 0.40 mL allergy 12/26/2016 0.40 mL allergy 01/01/2017 0.50 mL allergy 01/01/2017 0.50 mL allergy 02/13/2017 .20 mL allergy 02/13/2017 0.20 mL allergy 02/19/2017 0.20 mL allergy 02/19/2017 0.20 mL allergy 02/26/2017 allergy 02/26/2017 allergy 03/05/2017 0.05 mL allergy 03/05/2017 0.05 mL allergy 03/12/2017 0.05 mL allergy 03/12/2017 0.05 mL allergy 06/11/2017 0.05 mL allergy 06/11/2017 0.05 mL allergy 07/23/2017 0.35 mL allergy 07/23/2017 0.35 mL allergy 07/30/2017 0.40 mL allergy 07/30/2017 0.40 mL allergy 08/06/2017 0.45 mL allergy 08/06/2017 0.45 mL allergy 12/10/2017 0.30 mL allergy 12/10/2017 0.30 mL allergy 12/24/2017 0.35 mL allergy 12/24/2017 0.35 mL allergy 01/07/2018 0.35 mL allergy 01/07/2018 0.35 mL allergy 01/24/2018 0.35 mL allergy 01/24/2018 0.35 mL allergy 02/18/2018 0.35 mL allergy 02/18/2018 0.35 mL allergy 03/03/2018 0.35 mL allergy 03/03/2018 0.35 mL allergy 05/13/2018 .30 mL allergy 05/13/2018 allergy 09/02/2018 allergy 09/02/2018 allergy 10/03/2018 0.35 mL allergy 10/03/2018 0.35 mL allergy 10/14/2018 0.35 mL allergy 10/14/2018 0.35 mL allergy 10/28/2018 0.35 mg allergy 10/28/2018 0.35 mg allergy 11/25/2018 0.35 mL allergy 11/25/2018 0.35 mL allergy 12/09/2018 0.35 mL allergy 12/09/2018 0.35 mL allergy 01/20/2019 0.20 mg allergy 01/20/2019 0.20 mg allergy 03/03/2019 .20 allergy 03/03/2019 .20 allergy 03/31/2019 0.25 allergy 03/31/2019 0.25 allergy 05/26/2019 0.20 mL allergy 05/26/2019 0.20 mL allergy 06/09/2019 0.25 mL allergy 06/09/2019 0.25 mL allergy 08/04/2019 0.35 mL allergy 08/04/2019 0.35 mL allergy 12/21/2019 0.35 mg allergy 12/21/2019 0.35 mg allergy 01/05/2020 0.35 mL allergy 01/05/2020 0.35 mL allergy 03/15/2020 0.20 mL allergy 03/15/2020 0.20 mL allergy 03/29/2020 0.25 mg allergy 03/29/2020 0.25 mg allergy 04/12/2020 0.30 mL allergy 04/12/2020 0.30 mL allergy 05/10/2020 0.35 mg allergy 05/10/2020 0.35 mg allergy 07/05/2020 0.35 mL allergy 07/05/2020 0.35 mL allergy 08/16/2020 0.25 mg allergy 08/16/2020 0.25 mg allergy 10/11/2020 0.35 mL allergy 10/11/2020 0.35 mL allergy 11/21/2020 0.35 mL allergy 11/21/2020 0.35 mL allergy 03/21/2021 .2 mL allergy 03/21/2021 .2 mL allergy 03/21/2021 .2 mL allergy 04/03/2021 0.4 mL allergy 04/03/2021 0.4 mL allergy 04/03/2021 0.4 mL allergy 04/21/2021 0.10 mL Vial #1 Left u pper arm top allergy 04/21/2021 0.10 mL Vial #3 right upper arm allergy 04/21/2021 0.10 mL Vial #2 Left u pper arm bottom allergy 04/23/2021 0.20 mL #1 RA top allergy 04/23/2021 0.20 mL #2 RA bottom allergy 04/23/2021 0.20 mL #3 LA allergy 04/28/2021 0.3 mL allergy 04/28/2021 0.3 mL allergy 04/28/2021 0.3 mL allergy 05/13/2021 0.1 mL allergy 05/13/2021 0.1 mL allergy 05/13/2021 0.1 mL allergy 05/27/2021 0.3 mL allergy 05/27/2021 0.3 mL allergy 05/27/2021 0.3 mL allergy 05/29/2021 0.35 mL allergy 05/29/2021 0.35 mL allergy 05/29/2021 0.35 allergy 06/02/2021 0.4 mL allergy 06/02/2021 0.4 mL allergy 06/02/2021 0.4 mL allergy 06/05/2021 0.45 mL Right arm allergy 06/05/2021 0.45 mL Left arm upper allergy 06/05/2021 0.45 mL Left arm lower allergy 03/30/2024 0.20 mL allergy 03/30/2024 0.20 mL allergy 05/05/2024 right arm allergy 05/05/2024 left arm allergy 05/25/2024 0.05 mL allergy 05/25/2024 0.05 mL allergy 06/01/2024 0.10 mL right arm allergy 06/01/2024 0.10 mL left arm allergy 08/24/2024 0.15 mL allergy 08/24/2024 0.15 mL allergy 09/28/2024 0.25 mL allergy 09/28/2024 0.25 mL allergy 10/12/2024 0.25 mL allergy 10/12/2024 0.25 mL allergy 11/17/2024 allergy 11/17/2024 allergy 12/14/2024 0.05 mL allergy 12/14/2024 allergy 12/21/2024 allergy 12/21/2024 Depo- Medrol 40 mg/ml 05/01/2016 1.5 mL Depo- Medrol 40 mg/ml 05/15/2016 1 mL Dexamethasone 04/25/2007 1 mL Dexamethasone 05/26/2022 1.5 mL Dexamethasone 12/04/2021 1 mL Dexamethasone 11/15/2018 1 mL Dexamethasone 11/11/2018 1 mL Dexamethasone 06/06/2007 1.5 mL Dexamethasone 10/28/2006 1 mL Dexamethasone 12/15/2005 1 mL Depo- Medrol 40 mg/ml 03/21/2024 1 mL Depo- Medrol 40 mg/ml 09/16/2015 1.5 mL Depo- Medrol 40 mg/ml 11/22/2007 1.5 mL allergy 10/31/2024 0.25 mL allergy 10/31/2024 0.25 mL allergy 10/06/2024 0.25 mL allergy 10/06/2024 0.25 mL allergy 09/21/2024 0.25 mL MCP right arm allergy 09/21/2024 0.25 mL DP left arm allergy 09/13/2024 0.20 mL allergy 09/13/2024 0.20 mL allergy 09/07/2024 0.15 mL allergy 09/07/2024 0.15 mL allergy 08/17/2024 0.1 mL allergy 08/17/2024 0.1 mL allergy 08/10/2024 DP right arm allergy 08/10/2024 RON left arm allergy 06/29/2024 0.20 mL allergy 06/29/2024 0.20 mL allergy 06/09/2024 0.1 mL allergy 06/09/2024 0.1 mL allergy 05/18/2024 0.05 mL allergy 05/18/2024 0.05 mL allergy 04/21/2024 0.35 mL allergy 04/21/2024 0.35 mL allergy 04/13/2024 0.30 mL allergy 04/13/2024 0.30 mL allergy 04/07/2024 0.25 mL allergy 04/07/2024 0.25 mL allergy 03/24/2024 0.15 mL allergy 03/24/2024 0.15 mL allergy 03/16/2024 0.10 mL Left Arm allergy 03/16/2024 0.10 mL Right Arm allergy 03/07/2024 0.05 mL Back of Right Arm allergy 03/07/2024 0.05 mL Back of Left A rm allergy 11/18/2021 0.5 mL allergy 11/18/2021 0.5 mL allergy 11/18/2021 0.5 mL allergy 11/13/2021 0.5 mL allergy 11/13/2021 0.5 mL allergy 11/13/2021 0.5 mL allergy 11/11/2021 0.5 mL allergy 11/11/2021 0.5 mL allergy 11/11/2021 0.5 mL allergy 11/07/2021 0.5 mL allergy 11/07/2021 0.5 mL allergy 11/07/2021 0.5 mL allergy 11/05/2021 0.5 mg allergy 11/05/2021 0.5 mg allergy 11/05/2021 0.5 mg allergy 10/31/2021 0.5 mL allergy 10/31/2021 0.5 mL allergy 10/31/2021 0.5 mL allergy 10/29/2021 allergy 10/29/2021 0.5 mL allergy 10/29/2021 0.5 mL allergy 10/24/2021 0.35 mL allergy 10/24/2021 0.35 mL Mix 2 allergy 10/24/2021 0.35 mL Mix 1 allergy 10/10/2021 0.5 mL allergy 10/10/2021 0.5 mL allergy 10/10/2021 0.5 mL allergy 10/07/2021 0.5 mL Mix 3 RU allergy 10/07/2021 0.5 mL Mix 2 LL allergy 10/07/2021 0.5 mL Mix 1 JOSE LUIS allergy 10/03/2021 0.5 mL allergy 10/03/2021 0.5 mL allergy 10/03/2021 0.5 mL allergy 09/26/2021 0.5 mL allergy 09/26/2021 0.5 mL allergy 09/26/2021 0.5 mL allergy 09/22/2021 0.5 mL allergy 09/22/2021 0.5 mL allergy 09/22/2021 0.5 mL allergy 09/19/2021 0.5 mL allergy 09/19/2021 0.5 mL allergy 09/19/2021 0.5 mL allergy 09/08/2021 0.35 mL Mix 3 allergy 09/08/2021 0.35 mL Mix 2 allergy 09/08/2021 0.35 mL Mix 1 allergy 09/01/2021 0.5 mg allergy 09/01/2021 0.5 mg allergy 09/01/2021 0.5 mg allergy 08/29/2021 0.5 mL allergy 08/29/2021 0.5 mL allergy 08/29/2021 0.5 mL allergy 08/22/2021 0.5 mL allergy 08/22/2021 0.5 mL allergy 08/22/2021 0.5 mL allergy 08/18/2021 0.5 mL Mix 3 RU allergy 08/18/2021 0.5 mL Mix 2 JOSE LUIS allergy 08/18/2021 0.5 mL Mix 1 LL allergy 08/14/2021 0.5 mL Mix 3 JOSE LUIS allergy 08/14/2021 0.5 mL Mix 2 RL allergy 08/14/2021 0.5 mL Mix 1 RU allergy 08/06/2021 0.5 mL allergy 08/06/2021 0.5 mL allergy 08/06/2021 0.5 mL Mix 1 allergy 07/31/2021 0.35 mL allergy 07/31/2021 0.35 mL allergy 07/31/2021 0.35 mL allergy 06/24/2021 0.5 mL allergy 06/24/2021 0.5 mL allergy 06/24/2021 0.5 mL allergy 06/10/2021 0.5 mL mix 3 allergy 06/10/2021 0.5 mL mix 2 allergy 06/10/2021 0.5 mL mix 1 allergy 05/23/2021 0.25 mL allergy 05/23/2021 0.25 mL allergy 05/23/2021 0.25 mL allergy 05/20/2021 0.2 mL allergy 05/20/2021 0.2 mL allergy 05/20/2021 0.2 allergy 05/17/2021 0.15 mL allergy 05/17/2021 0.15 mL allergy 05/17/2021 0.15 mL allergy 05/05/2021 0.5 mL allergy 05/05/2021 0.5 mL allergy 05/05/2021 0.5 mL allergy 05/02/2021 0.5 mL allergy 05/02/2021 0.5 mL allergy 05/02/2021 0.5 mL given by Vicki Singer allergy 04/07/2021 0.50 mL allergy 04/07/2021 0.50 mL allergy 04/07/2021 0.50 mL allergy 03/25/2021 0.20 mL Mix 3 allergy 03/25/2021 0.20 mL Mix 2 allergy 03/25/2021 0.20 mL Mix 1 allergy 03/18/2021 0.10 mL Blue Vial Mix 3 allergy 03/18/2021 0.10 mL Blue Vial Mix 2 allergy 03/18/2021 0.10 mL Blue vial Mix 1 allergy 03/07/2021 0.5 mL allergy 03/07/2021 0.5 mL allergy 03/07/2021 0.5 mL allergy 03/04/2021 0.4 mL allergy 03/04/2021 0.4 mL allergy 03/04/2021 0.4 mL allergy 02/27/2021 0.3 mg allergy 02/27/2021 0.3 mg allergy 02/27/2021 0.3 mg allergy 02/21/2021 0.20 mL allergy 02/21/2021 0.20 mL allergy 02/21/2021 0.20 mL allergy 02/13/2021 0.10 mL Left Upper- 3 allergy 02/13/2021 0.10 mL Right Upper-2 allergy 02/13/2021 0.10 mL Right Upper-1 allergy 01/17/2021 0.3 mL allergy 01/17/2021 0.3 mL allergy 01/03/2021 0.25 mL allergy 01/03/2021 0.25 mL allergy 12/20/2020 0.20 mL allergy 12/20/2020 0.20 mL allergy 12/06/2020 0.15 mL allergy 12/06/2020 0.15 mL allergy 11/12/2020 0.35 mL allergy 11/12/2020 0.35 mL allergy 10/25/2020 0.35 mL allergy 10/25/2020 .35 mL allergy 09/30/2020 0.35 mL allergy 09/30/2020 0.35 mL allergy 09/14/2020 0.35 mL allergy 09/14/2020 0.35 mL allergy 08/30/2020 0.3 mL allergy 08/30/2020 0.3 mL allergy 08/02/2020 0.20 mg allergy 08/02/2020 0.20 mg allergy 07/19/2020 0.15 mL allergy 07/19/2020 0.15 mL allergy 06/21/2020 0.35 mL allergy 06/21/2020 0.35 mL allergy 06/06/2020 0.35 mL allergy 06/06/2020 0.35 mL allergy 05/24/2020 0.35 mL allergy 05/24/2020 0.35 mL allergy 04/26/2020 0.30 mL allergy 04/26/2020 0.30 mL allergy 03/02/2020 0.15 mg allergy 03/02/2020 0.15 mg allergy 02/16/2020 0.35 mL allergy 02/16/2020 0.35 mL allergy 02/02/2020 0.35 mL allergy 02/02/2020 0.35 mL allergy 01/19/2020 0.35 mL allergy 01/19/2020 0.35 mL allergy 12/01/2019 0.35 mL allergy 12/01/2019 0.35 mL allergy 11/17/2019 allergy 11/17/2019 allergy 11/03/2019 0.25 mg allergy 11/03/2019 0.25 mg allergy 10/24/2019 0.20 mg allergy 10/24/2019 0.20 mg allergy 10/13/2019 0.15 mL allergy 10/13/2019 0.15 mL allergy 09/29/2019 allergy 09/29/2019 allergy 09/15/2019 0.35 mg allergy 09/15/2019 0.35 mg allergy 09/06/2019 allergy 09/06/2019 allergy 08/25/2019 0.35 allergy 08/25/2019 0.35 allergy 07/21/2019 0.35 allergy 07/21/2019 0.35 allergy 05/12/2019 .15 allergy 05/12/2019 .15 allergy 05/05/2019 0.30 mg allergy 05/05/2019 0.30 mg allergy 03/17/2019 .2 mL allergy 03/17/2019 .2 mL allergy 02/17/2019 allergy 02/17/2019 allergy 02/03/2019 0.20 mL allergy 02/03/2019 0.20 mL allergy 01/06/2019 .20 mL allergy 01/06/2019 .20 mL allergy 2018 0.15 mg allergy 2018 0.15 mg allergy 11/09/2018 0.35 allergy 11/09/2018 0.35 allergy 09/16/2018 0.30 mL allergy 09/16/2018 0.30 mL allergy 08/19/2018 0.20 mg allergy 08/19/2018 0.20 mg allergy 08/05/2018 0.15 mg allergy 08/05/2018 0.15 mg allergy 07/23/2018 0.35 mL allergy 07/23/2018 0.35 mL allergy 06/10/2018 0.35 mg allergy 06/10/2018 0.35 mg allergy 05/27/2018 0.35 mL allergy 05/27/2018 0.35 mL allergy 04/22/2018 0.25 mL allergy 04/22/2018 0.25 mL allergy 04/01/2018 0.20 mg allergy 04/01/2018 0.20 mg allergy 03/18/2018 0.35 mg allergy 03/18/2018 0.35 mg allergy 02/04/2018 0.35 mL allergy 02/04/2018 0.35 mL allergy 11/26/2017 0.25 mL allergy 11/26/2017 0.25 mL allergy 11/12/2017 0.20 mg allergy 11/12/2017 0.20 mg allergy 10/28/2017 0.15 mL allergy 10/28/2017 0.15 mL allergy 10/22/2017 0.35 mL allergy 10/22/2017 0.35 mL allergy 10/15/2017 0.35 mL allergy 10/15/2017 0.35 mL allergy 10/08/2017 0.35 mL allergy 10/08/2017 0.35 mL allergy 10/01/2017 0.35 mL allergy 10/01/2017 0.35 mL allergy 09/24/2017 0.30 mL allergy 09/24/2017 0.30 mL allergy 09/16/2017 0.25 mL allergy 09/16/2017 0.25 mL allergy 09/10/2017 0.20 mL allergy 09/10/2017 0.20 mL allergy 09/02/2017 0.15 mg allergy 09/02/2017 0.15 mg allergy 08/27/2017 0.10 mL allergy 08/27/2017 0.10 mL allergy 08/20/2017 0.05 mL allergy 08/20/2017 0.05 ng allergy 08/13/2017 0.50 mL allergy 08/13/2017 0.50 mL allergy 06/25/2017 0.15 mL allergy 06/25/2017 0.15 mL allergy 06/17/2017 allergy 06/17/2017 allergy 05/28/2017 0.15 mL allergy 05/28/2017 0.15 mL allergy 05/21/2017 0.10 mL allergy 05/21/2017 0.10 mL allergy 05/14/2017 0.05 mL allergy 05/14/2017 0.05 mL allergy 05/07/2017 0.40 mL allergy 05/07/2017 0.40 mL allergy 04/30/2017 0.35 mL allergy 04/30/2017 0.35 mL allergy 04/23/2017 0.30 mL allergy 04/23/2017 0.30 mL allergy 04/17/2017 0.25 mL allergy 04/17/2017 0.25 mL allergy 04/09/2017 0.20 mL allergy 04/09/2017 0.20 mL allergy 04/02/2017 0.15 mL allergy 04/02/2017 0.15 mL allergy 03/25/2017 0.10 mL allergy 03/25/2017 0.10 mL allergy 03/19/2017 0.05 mL allergy 03/19/2017 0.05 mL allergy 02/06/2017 0.20 mL allergy 02/06/2017 0.20 mL allergy 01/29/2017 0.20 mL allergy 01/29/2017 0.20 mL allergy 01/22/2017 0.20 mL allergy 01/22/2017 0.20 mL allergy 01/15/2017 0.15 mL allergy 01/15/2017 0.15 mL allergy 01/08/2017 0.10 mL allergy 01/08/2017 allergy 11/20/2016 0.20 mg allergy 11/20/2016 0.20 mg allergy 11/12/2016 0.15 mL allergy 11/12/2016 0.15 mL allergy 10/24/2016 0.05 mL allergy 10/24/2016 0.05 mL allergy 10/16/2016 0.50 mL allergy 10/16/2016 0.50 mL allergy 10/09/2016 0.45 mL allergy 10/09/2016 0.45 mL allergy 10/02/2016 0.40 mL allergy 10/02/2016 0.40 mL allergy 09/25/2016 0.35 mL allergy 09/25/2016 0.35 mL allergy 09/18/2016 0.30 mL allergy 09/18/2016 0.30 mL allergy 09/11/2016 0.25 mL allergy 09/11/2016 0.25 mL allergy 09/04/2016 0.20 mL allergy 09/04/2016 0.20 mL allergy 08/28/2016 0.15 mL allergy 08/28/2016 0.15 mL allergy 08/21/2016 0.10 mL allergy 08/21/2016 0.10 mL allergy 08/14/2016 0.05 mL allergy 08/14/2016 0.05 mL allergy 08/01/2016 0.50 mL allergy 08/01/2016 0.50 mL allergy 06/26/2016 0.25 mL allergy 06/26/2016 0.25 mL allergy 05/15/2016 0.45 mL allergy 05/15/2016 0.45 mL allergy 05/08/2016 0.40 mL allergy 05/08/2016 0.40 mL allergy 05/01/2016 0.35 mL allergy 05/01/2016 0.35 mL allergy 04/24/2016 0.30 mL allergy 04/24/2016 0.30 mL allergy 04/17/2016 0.25 mL allergy 04/17/2016 0.25 mL allergy 04/10/2016 0.20 mL allergy 04/10/2016 0.20 mL allergy 03/06/2016 0.10 mg allergy 03/06/2016 0.10 mg allergy 02/27/2016 0.10 mg allergy 02/27/2016 0.10 mL allergy 02/07/2016 0.10 mL allergy 02/07/2016 0.10 mL allergy 02/01/2016 0.10 mL allergy 02/01/2016 0.10 mL allergy 01/24/2016 0.10 mL allergy 01/24/2016 0.10 mL allergy 01/17/2016 0.10 mL allergy 01/10/2016 0.05 mL allergy 01/10/2016 0.05 mL allergy 11/28/2015 0.35 mL allergy 11/28/2015 0.35 mL allergy 10/28/2015 0.30 mL allergy 10/28/2015 0.30 mL allergy 09/27/2015 0.25 mL allergy 09/27/2015 0.25 mL allergy 08/29/2015 0.20 mL allergy 08/29/2015 0.20 mL allergy 08/05/2015 .15 mL allergy 08/05/2015 .15 mL allergy 06/01/2015 0.30 mL allergy 06/01/2015 0.30 mL allergy 05/03/2015 0.25 mL allergy 05/03/2015 0.25 mL allergy 04/05/2015 0.20 mL allergy 04/05/2015 0.20 mL allergy 03/12/2015 0.15 mL allergy 03/12/2015 0.15 mL Medical (General) History Medical History History ICD Code Seizure disorder Seasonal allergies Hypertension Sleep Apnea Osteoarthritis Lumbar Spinal Stenosis GERD Anemia Depression Hyperlipidemia Surgical History Surgery Date(Month/Year) D&C Vocal Cord Callus Removal 1998 Lt Wrist Cyst Removal Colonoscopy 11/2006 Tonsillectomy, Adenoidectomy 12/2007 Epidural Shot 06/04/2008 Cholecystectomy 12/31/2009 Lumbar Epidural Steroid Injection 2010 Back surgery 01/30/2011 MORRO/BSO - Dr. Quezada 12/07/2011 Hernia Repair 02/23/2012 Negative Heart Cath 02/2013 Lt Total Knee Replacement 03/17/2013 Rt Total Knee Replacement 11/15/2013 [facility],L4,L5) - Dr. Gipson 06/2014 Gastric Sleeve 03/26/17 Lt Eye Cataract- Dr. Zaman 02/2019 T11-L5 spinal fusion, Dr. Carver lexmeet ton 04/05/2019 Rt Cataract 10/2019 Back Surgery/ Rods placed by Dr. Carver - 07/22/2022 Hospitalization History Reason Date(Month/Year) Seizures 1978 ,1995
--- OUTSIDE RECORDS SUMMARY | 2024-12-26 10:36 | XMS_ITS | Clinical Summary ---
Author Organization [facility] Address [address] [place] [address] Care Team Providers Care Chef Under Name Role Phone Gary Roberts MD Primary Care Provider [phone] Allergies Active Allergy Reactions Criticality Noted Date [...] * request cloth tape only* Medications pancrelipase, Wcw-Mdon-Axea, (Zenpep) 85375-38061 units capsule delayed-release particles capsule 3 (three) [...] (01/29/2022): Added automatically from request for surgery [id number] Pseudarthrosis after fusion or arthrodesis 01/29 S/P [...] [facility] [address] [place] [address] Jace Valero, DO Trochanteric bursitis, left hip (Primary Dx); Altered gait; History of foot fracture 11/01/2024 Travel 10/03/2024 Orders Only [facility] [address] [place] [address] Maude Macias, PharmD 10/02/2024 [facility] Mineral Met[facility] [address], [address] [place] [address] Chapo Santoro, PharmD 09/26/2024 [facility] [address], [address] [place] [address] Sheyla Kaye, MATIAS from Last 3 Months Immunizations Immunization Administration Dates Next Due Hep A, Adult 09/24/2018,03/23/2018 Influenza, Unspecified 03/07/2017 Influenza, high-dose, quadrivalent 04/03/2021 Influenza, injectable, quadrivalent 03/11/2020 Pneumococcal 20-rj Conj Vaccine 04/20/2023 Pneumococcal Polysaccharide PPV23 03/12/2017 Pneumococcal, Unspecified 03/07/2017 Rsvpref, Recombinant, Protein Subunit, Adjuvent 05/06/2023 Varicella 05/24/2007,03/29/2007 Family History Medical History Relation Name Comments Arthritis Brother Marco Mendoza Cancer Brother Marco Mendoza Arthritis Father Broderick Mendoza Heart disease Father Broderick Mendoza Arthritis Father's Brother 1 Luis Reji Arthritis Father's Brother 2 Gold Mendoza Arthritis Father's Sister Yessi Buchanan Kidney disease Father's Sister Yessi Buchanan Osteoporosis Father's Sister Yessi Buchanan Rheumatologic disease Father's Sister Yessi Rooney olony Rheumatologic disease Maternal Grandmother Deysi Karen Mendoza Stroke Maternal Grandmother Deysi Perla n Cancer Mother Maria Teresa Mendoza Diabetes Mother Maria Teresa Mendoza Stroke Mother Maria Teresa Mendoza Vision loss Mother Maria Teresa Mendoza Arthritis Other 1 Diabetes Other 2 Hypertension Other 3 Other cancer Other 4 Heart Problem Other 5 Stroke Paternal Grandfather Hira Moncada Mendoza Arthritis Paternal Grandmother Deysi Perla n Rheumatologic disease Paternal Grandmother Deysi Mendoza Arthritis Sister Zena Shaw Anesthesia problems Neg Hx Malig Hyperthermia Neg Hx Relation Name Status Comments Brother Marco Reynolds Mendoza Father Broderick Mendoza Alive Father's Brother 1 Luis Mendoza Alive Father's Brother 2 Gold Pablo Mendoza Alive Father's Sister Yessi Mendoza Molony Maternal Grandmother Deysi Mendoza Mother Maria Teresa Mendoza Other 1 Other 2 Other 3 Other 4 Other 5 Paternal Grandfather Hira Moncada Mendoza Alive Paternal Grandmother Deysi Mendoza Alive Sister Zena Shaw Alive Social History Tobacco Use Types Packs/Day Years Used Date Smoking Tobacco: Never Passive Smoke Exposure: Never Smokeless Tobacco: Never Tobacco Cessation:Counseling Given: Not Answered Comments:Never Used 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) to steady your nerves or to [...] Upcoming Encounters Date Type Department Care Team ([facility] st Contact Info) Description 03/28/2025 11:00 AM EDT Evaluation [facility] Mineral Metabolism [address], [address] [place] [address] Chapo Santoro, PharmD [address] [place] [address] 03/29/2025 10:40 AM EDT Office Visit [facility] Nephrology, Bone & Mineral Metabolism [address], [address] [place] [address] Edinson Reyes MD [address] [place] [phone] Health Maintenance Due Date Last Done Comments [facility]-Hepatitis C Screening 1950 [facility]Medicare Annual Wellness (AWV) 1950 [facility]-Infant/Child/Adol SDOH Screenings 1950 [facility]- SDOH Screenings 1968 [facility]-Adult SDOH Screenings 1968 CT Colonography 12/24/1995 Colonoscopy 12/24/1995 FIT-DNA 12/24/1995 FIT 12/24/1995 FOBT 12/24/1995 Sigmoidoscopy 12/24/1995 [facility]-Colorectal Cancer Screening 12/24/1995 [facility]-Zoster Vaccines (1 of 2) 2000 05/24/2007, 03/29/2007 JSW-RAIZT-16 Vaccine ( season) 2024 03/11/2022, 03/12/2021, 07/22/2020, Additional history exists [facility]-Influenza Vaccine (#1) 02/05/202504/03, 03/11/2020, 02/23/2020, Additional history exists [facility]-DTaP,Tdap,and Td [...] this topic Medical Devices Implanted Type Area Manager Technical Training Device Identifier Shelf Expiration Date Model / Serial / Lot Chip Bone 40cc - [id number] - [id number] Implanted:Qty: 1 on 07/22/2022 by Pratik Carver MD at [facility] N/A: Spine Lumbar [facility]-[id number] 02/23/2027 PCAN1/2 / [id number] / [id number] Screw 5.5mm Viper Ti Fen Crtcl Polyax 6mm X 30mm - [id number] Implanted:Qty: 8 on 07/22/2022 by Pratik Carver MD at [facility] N/A: Spine Lumbar [id number] 07/22/2023 [id number] / / Chip Bone 40cc - [id number] - [id number] Implanted:Qty: 1 on 07/22/2022 by Pratik Carver MD at [facility] N/A: Spine Lumbar [facility]-[id number] 04/21/2027 PCAN1/2 / [id number] / [id number] Graft Vivigen 5cc - [id number] - [id number] Implanted:Qty: 1 on 07/22/2022 by Pratik Carver MD at [facility] N/A: Spine Lumbar [facility]-[id number] 07/01/2023 [id number] / [id number] / [id number] Screw 5.5mm Viper Ti Fen Crtcl Polyax 5mm X 40mm - [id number] Implanted:Qty: 2 on 07/22/2022 by Pratik Carver MD at [facility] N/A: Spine Lumbar [id number] 07/22/2023 [id number] / / Screw Exp Viper Lg Tit 9x100 - [id number] Implanted:Qty: 1 on 07/22/2022 by Pratik Carver MD at [facility] N/A: Spine Lumbar [employer] LP-[id number] 07/22/2023 [id number] / / Screw 5.5mm Viper Ti Polyax Fullthrd 8mm X 100mm - [id number] Implanted:Qty: 1 on 07/22/2022 by Pratik Carver MD at [facility] N/A: Spine Lumbar [employer]-[id number] 07/22/2023 [id number] / / Single Inner Setscrew - [id number] Implanted:Qty: 23 on 07/22/2022 by Pratik Carver MD at [facility] N/A: Spine Lumbar [employer]-[id number] 07/22/2023 [id number] / / Ap Expedium Ti Precontoured Small 5.5mm - [id number] Implanted:Qty: 2 on 07/22/2022 by Pratik Carver MD at [facility] N/A: Spine Lumbar [employer] [id number] 07/22/2023 [id number] / / Plate Sfx 5.5 Ti Med Size A5 - [id number] Implanted:Qty: 1 on 07/22/2022 by Pratik Carver MD at [facility] N/A: Spine Lumbar [employer] [id number] 07/22/2023 [id number] / / Procedures Procedure Name Priority Date/Time Associated Diagnosis Comments DEXA BONE DENSITY Routine 08/25/2024 11: 50 AM EDT Age-related osteoporosis without current pathological fracture HEMOGLOBIN A1C Routine 04/09/2022 11:21 AM EDT Spondylolisthesis, thoracic region Neurogenic claudication (CMS/HCC) Pseudarthrosis after fusion or arthrodesis from Last 3 Months or Most Recently Relevant to Health Maintenance Results * Dexa Bone Density (08/25/2024 11:50 AM EDT) Anatomical Region Laterality Modality L-spine Radiographic Deepali ging Narrative 09/06/2024 8:02 AM EDT [facility] - [facility] [address] [place] [address] DXA Bone Densitometry Report: [08/25/2024] BMD test performed using the [employer] DXA System (analysis version: 14.10) manufactured by [employer]. REFERRING PROVIDER: Dr. Eric Barrientos MD CLINICAL [...] of change in BMD). Eric Barrientos MD [facility] DXA PROCEDURES Final Resul t * (ABNORMAL) Hemoglobin A1c (04/09/2022 11:21 AM EDT) Hemoglobin A1c 6.4(H) <5.7 % 04/10/2022 8:39 AM EDT [facility] Blood Venous blood specimen / Unknown [...] Adults <6.0% Children and Adolescents <7.5% Source: [place] [employer]. Standards of medical care in diabetes,2017. Diabetes Care.2017:40 (suppl 1):S1-S135. HbA1c assay performed by an ion-exchange chromatography method that is certified traceable to the DCCT. us Pratik Carver MD LAB BLOOD ORDERABLES Final Res [facility] [address] [place] [address] from Last 3 Months or Most Recently Relevant to Health Maintenance Insurance [facility] MEDICARE Advance Directives * Full Code (Latest Code Status on File) Date Activated Date Inactivated Comments 07/22/2022 1:01 PM 07/25/2022 4:04 PM Question Answer Comments Patient has decision-making capacity? Yes Care Teams Chef Under Relationship Specialty Start Date End Date Gary Roberts MD [address] [place] [address] PCP - General 10/18/20
--- NOTE | 2024-12-26 10:45 | CT_ITS ---
FINAL REPORT CLINICAL HISTORY: ABNL MARIE, pain in left leg and foot FINDINGS: CT ABDOMEN, CT PELVIS, CTA ABDOMEN, CTA PELVIS AND CTA LOWER EXTREMITY RUNOFF COMPARISON: None TECHNIQUE: Thin section axial CT with IV contrast supplemented with 3D MIP reconstruction under CT Angiogram protocol This study was performed with techniques to keep radiation doses as low as reasonably achievable, (ALARA). Individualized dose reduction techniques using automated exposure control or adjustment of mA and/or kV according to the patient''s size were employed. FINDINGS: CT ANGIOGRAM ABDOMEN AND PELVIS: Abdominal aorta shows no significant stenosis, aneurysm or dissection. Central mesenteric and renal arteries are widely patent. Iliac vessels show no significant stenosis, dissection or aneurysm. CTA RIGHT LOWER EXTREMITY: The femoral and popliteal vessels showed no significant stenosis or occlusion. There is three-vessel runoff of the calf. CTA LEFT LOWER EXTREMITY: The femoral and popliteal vessels show no significant stenosis or occlusion. There is three-vessel runoff of the calf. Abdomen: There is a right renal cyst. Remaining solid abdominal organs are grossly unremarkable. No bowel obstruction is seen. There is no free fluid or free air. Patient is status post gastric sleeve. Pelvis: Patient is status post hysterectomy. Appendix is not visualized. There are surgical changes of the lower abdominal wall. Pelvic bowel loops are unremarkable. No mass or fluid collection is seen. IMPRESSION: No significant arterial inflow or outflow disease of the lower extremities Reviewed, Interpreted and Dictated by Tate Ziegler MD Transcribed by Yvette Haynes Authenticated and [facility]
[2024-12-26] MEDS: IOPAMIDOL-370 (76%);100ML BOTTLE 100 ML IV (10:58)
[2024-12-26] MEDS: 0.9 % SODIUM CHLORIDE 50 ML VIAL IV ×2 (10:58)
[2024-12-26] MEDS: SODIUM CHLORIDE 0.9% 10ML SYR (RAD ONLY) 10 ML IV (10:58)
[2024-12-26] MEDS: IOPAMIDOL-370 (76%);100ML BOTTLE 20 ML IV (10:59)
== END 2024-12-26 23:59 | disposition home or self-care (01) ==
LOC: RAD 10:32
PROVIDERS: PCP Family Medicine; Visit Provider Nurse Practitioner Family
DX: I70.212 Atherosclerosis of native arteries of extremities with intermittent claudication, left leg (principal); R94.39 Abnormal result of other cardiovascular function study
CPT/HCPCS: 75635; Q9967

== ENCOUNTER 2025-03-13 12:10 | Outpatient (CLI) | payer MEDICARE, OTHER, SELFPAY ==
--- OUTSIDE RECORDS SUMMARY | 2025-02-01 10:45 | XMS_ITS ---
Author Organization [facility] Address [address] [place] [phone] Care Team Providers Care Swahili Teacher Name Role Phone Samy Roberts Primary Care [...] Drug Allergy Active Reason For Referral Reason She is an establishe d patient with Percy at [facility] in [facility]. Needs referral to eval and treat for sciatica Diagnosis 1 Sciatica (M54.30) Referral Organization [facility] Referring Provider First Name Samy Villafana Referring Provider Last Name Armando Referring Provider Speciality Family Pra ctice Referred Provider Physical Therapy, . Referred Provider Specialty Physical The rapist General Notes Lisseth Delgado 2024 03:37:22 PM > faxed to [facility] Referral Priority Routine REASON FOR VISIT pulled muscle/sciatica in right leg Medications Medication SIG (Take, Route, Frequency, Duration) Notes Start Date End Date Status Rosuvastatin Calcium 10 mg TAKE ONE TABLET BY MOUTH EVERY DAY; Duration: 90 Active Allopurinol 300 mg TAKE ONE TABLET BY M OUT EVERY DAY; Duration: 90 Active CareTouch CPAP & BIPAP Hose as directed 08/18/2021 Active Olmesartan Medoxomil 20 mg take 1 tablet orally once a day; Duration: 90 days Active levoFLOXacin 500 MG 1 tablet Orally Once a day; Duration: 10 day(s) 01/23/2025 Active Furosemide 20 MG 1 tablet Orally once daily; Duration: 90 days Active Albuterol Sulfate HFA 108 (90 Base) MCG/ACT 1 puff as needed Inhalation every 4 hrs Active Omeprazole 40 MG 1 cap(s) orally once a day Active Nystatin-Triamcinolone 920178-5.1 UNIT/GM 1 application Externally Twice a day 04/28/2024 Active Zenpep 65694-24265 UNIT 1 cap(s) Orally Three times a day Active Gabapentin 100 MG 2 caps orally qid Active Azelastine HCl 137 MCG/SPRAY 2 spray(s) intranasally 2 times a day Active Vagifem 10 MCG 1 tab(s) intravagina lly 3 times a week Active Keppra XR 500 MG 1 q am, 4 q hs orally Active Fish Oil 1200 MG 1 cap(s) orally once daily Active Multiple Vitamin - 1 cap(s) orally once a day; Duration: 30 day(s) Active Olopatadine HCl 0.1 % 1 drop into affect ed eye Ophthalmic Twice a day Active Aspirin 81 81 MG 1 tablet Orally Once a day; Duration: 30 day(s) Active Prolia 60 MG/ML as directed Subcutan eous every 6 months Active Calcium 600 + Minerals 600-200 MG-UNIT 2 tab(s) orally once a day; Duration: 30 day(s) Active Problems Problem Type SNOMED Code ICD Code Onset Dates Problem Status W/U Status Risk Notes Problem Sciatica (23194231) Sciatica (M54.30) Active confirmed Vital Signs Blood pressure systolic 120 mm Hg 02/02/20 25 Blood pressure diastolic 76 mm Hg 025 Heart Rate 88 /min 02/01/2025 Height 64.50 in 02/01/2025 Weight 192.8 lbs 02/01/2025 BMI 32.58 kg/m2 02/01/2025 Encounters Encounter Location Date Provider Diagnosis [facility] [address] [facility] [address] [place] [id number] 02/01/2025 Samy Roberts Sciatica M54.30 and Allergic rhinitis, unspecified J30.9 Assessments Encounter Date Diagnosis (ICD Code) Assessment Notes Treatment Notes Treatment Clinical Notes Section Notes 02/01/2025 Sciatica (ICD-10 - M54.30) 02/01/2025 Allergic rhinitis, unspecified (ICD-10 - J30.9) Plan Of Treatment Referrals Referral Date Details 02/01/2025 02/01/2025, She is a n established patient with Percy at [facility] in [facility]. Needs referral to eval and treat for sciatica, . Physical Therapy Next Appt Details Follow Up: prn, Reason: Medications Administered Medication Instructions Date of Administration Dosage Notes allergy 02/01/2025 0.25 mL allergy 02/01/2025 0.25 mL Progress Notes * SADIA CARTERADOB:1950 ( 74 yo F)Acc No.[id number]:02/01/2025 Progress Notes Patient: ISMAEL HENLEY Provider: Samy Roberts M.D. :1950 A ge:74 Y S ex:Female Date:02/01/2025 Address:[address] [place] [address] [id number] Subjective: * Chief Complaints: * 1 . Pulled muscle/sciatica in right leg. * HPI: L eg: She presents with complaints of pain in the right posterior thigh which radiates down to the right foot for about a week. She recalls no specific injury but has been doing a lot of driving recently. She is following with [facility] in regards to the foot and would like referral to address her sciatica. * ROS: D ERMATOLOGY: no R soto. [...] Replacement 03/17/2013, Rt Total Knee Replacement 11/15/2013, [facility]-Lumbar Fusion (L3,L4,L5) - Dr. Gipson 06/2014, [...] Inhalation every 4 hrs , Taking Zenpep 44918-28912 UNIT Capsule Delayed Release Particles 1 cap(s) Orally Three times a day , Taking Nystatin-Triamcinolone 171673-2.1 UNIT/GM Cream 1 application Externally Twice a [...] MACHINE AND SUPPLIES as directed , Taking levoFLOXacin 500 MG Tablet 1 tablet Orally Once a day , Medication List reviewed and reconciled with the patient * Allergies: A moxicillin, FABRICE Inhibitors: cough, Sulindac: chest tightness, Reglan: anxiety, Sulfa Antibiotics, Budesonide, Cefdinir: does not help, amLODIPine: swelling - Side Effects, Nabumetone: Headaches - Side Effects. Objective: * Vitals: W t: 192.8, Temp: 97.7, BP: 120/76, HR: 88, O2 Sat: 96% on RA, Nurse: bari, Ht: 64.50, BMI:32.58. * Examination: G eneral Examination: B ut slowly from chair to standing position. Walks with a limp. Tenderness in the right hamstrings. Hamstrings are tight. No muscle weakness. Assessment: * Assessment: 1. S ciatica - M54.30 (Primary) 2 . A llergic rhinitis, unspecified - J30.9? Plan: * Treatment: * Therapeutic Injections: allergy : 0.25 mL (Route: Subcutaneous) given by BARI Li on subcutaneus (Allergic rhinitis, unspecified) allergy : 0.25 mL (Route: Subcutaneous) given by BARI Li on subcutaneus (Allergic rhinitis, unspecified) * Procedure Codes: G 2211 Complex e/[place], [address] IMMUNOTHERAPY INJECTIONS, 1036F TOBACCO NON-USER, G8783 BP SCR PRFRM RCMDD DEFIND SCR INTVL, G8752 MOST RECENT SYSTOLIC BP < 140MM HG, G8754 MOST RECENT DIASTOLIC BP < 90MM HG * Follow Up: p rn * Images: Billing Information: * Visit Code: 49928 Office Visit, Est Pt., Level 3. * Procedure Codes: G2211 Complex e/[place]. [address] IMMUNOTHERAPY INJECTIONS. 1036F TOBACCO NON-USER. G8783 BP SCR PRFRM RCMDD DEFIND SCR INTVL. G8752 MOST RECENT SYSTOLIC BP < 140MM HG. G8754 MOST RECENT DIASTOLIC BP < 90MM HG. * Electronic signature of Samy Roberts MD on 03/13/2025 at 12:13 PM EDT Sign off status: Pending * Provider: Samy Roberts M.D. Date: 0 02/01/2025 Generated for Rose varela/Aida/Jae on: 1 12:13 PM EDT History and Physical Notes * HPI (History of Present Illness) Category Sub-Category Detail Notes Category Not es Leg She is followin g with [facility] in regards to the foot and would like referral to address her sciatica Examination Category Sub-Category Detail Notes Category Not es General Examination But slow ly from chair to standing position. Walks with a limp. Tenderness in the right hamstrings. Hamstrings are tight. No muscle weakness. Consultation Request Notes Referral Date Referring Provider Referred Provider Not es 02/01/2025 Samy Roberts Therapy, . She is an established patient with Percy at [facility] in [facility]. Needs referral to eval and treat for sciatica
--- OUTSIDE RECORDS SUMMARY | 2025-02-08 12:15 | XMS_ITS ---
Author Organization [facility] [address] [facility] [address] [place] [phone] Care Team Providers Care Foreclosure Field Inspector Name Role Phone Samy Roberts Primary Care Provider [phone] REASON FOR VISIT allergy shot Medications Medication [...] needed Inhalation every 4 hrs Active Zenpep 98889-52636 UNIT 1 cap(s) Orally Three times a day Active Nystatin-Triamcinolone 748648-9.1 UNIT/GM 1 application Externally Twice a day [...] Provider Diagnosis [facility] [address] [facility] [address] [place] [id number] 02/08/2025 Samy Roberts Allergic rhinitis J30.9 Assessments [...] JOSÉ MIGUEL CARTERB:1950 ( 74 yo F)Acc No.[id number]:02/08/2025 Patient: Samy DARBY ISMAEL Provider: Samy Roberts M.D. :1950 A ge:74 Y S ex:Female Date:02/08/2025 Address:[address] [place], [place] [phone] Subjective: * Chief Complaints: * 1 . [...] Inhalation every 4 hrs , Taking Zenpep 34115-48264 UNIT Capsule Delayed Release Particles 1 cap(s) Orally Three times a day , Taking Nystatin-Triamcinolone 050848-4.1 UNIT/GM Cream 1 application Externally Twice a [...] Information: * Visit Code: * Procedure Codes: 98860 IMMUNOTHERAPY INJECTIONS. * Electronic signature of Samy Roberts MD on 03/13/2025 at 12:13 PM EDT Sign off status: Pending * Provider: Samy Roberts M.D. Date: 0 02/08/2025 Generated for Rose varela/Aida/Jae on: 1 12:13 PM EDT
--- OUTSIDE RECORDS SUMMARY | 2025-02-20 12:00 | XMS_ITS ---
Author Organization [facility] Address [address] [facility] [address] [place] [phone] Care Team Providers Care Motor Vehicle Representative Name Role Phone Samy Roberts Primary Care [...] a day; Duration: 90 days Active Zenpep 58604-24931 UNIT 1 cap(s) Orally Three times a day Active Furosemide 20 MG 1 tablet Orally once daily; Duration: 90 days Active Nystatin-Triamcinolone 691966-4.1 UNIT/GM 1 application Externally Twice a day [...] 3 times a week Active Vital Signs Blood pressure systolic 120 mm Hg 02/21/20 25 Blood pressure diastolic 72 mm Hg 025 Heart Rate 103 /min 02/20/2025 Height 64.50 in 02/20/2025 Weight 191.4 lbs 02/20/2025 BMI 32.34 kg/m2 02/20/2025 Encounters Encounter Location Date Provider Diagnosis [facility] [address] [place] [phone] 02/20/2025 Samy Roberts Allergic rhinitis J30.9 and [...] extract: RON- LA Progress Notes * SADIA CARTERLEAB:1950 ( 74 yo F)Acc No.[id number]:02/20/2025 Progress Notes Patient: ISMAEL HENLEY Provider: Samy Roberts M.D. :1950 A ge:74 Y S ex:Female Date:02/20/2025 Address:[address] [place] [id number] Subjective: * Chief Complaints: * 1 . [...] Replacement 03/17/2013, Rt Total Knee Replacement 11/15/2013, [facility]-Lumbar Fusion (L3,L4,L5) - Dr. Gipson 06/2014, Gastric Sleeve 03/26/17, Lt Eye Cataract- Dr. Zaman 02/2019, T11-L5 spinal fusion, Dr. Wen quintero 04/05/2019, Rt Cataract 10/2019, Back Surgery/ Rods placed by Dr. Carver - 07/22/2022. * Hospitalization/Major Diagno stic Procedure: S vijay 1978 ,1995. * Family History: F ather: 64 yrs, [place]. M other: 69 yrs, [place]. P aternal [...] Inhalation every 4 hrs , Taking Zenpep 03057-33464 UNIT Capsule Delayed Release Particles 1 cap(s) Orally Three times a day , Taking Nystatin-Triamcinolone 514452-5.1 UNIT/GM Cream 1 application Externally Twice a [...] 0.25 mL (Route: Subcutaneous) given by Sara Earlywine , EPE on left deltoid (Allergic rhinitis) [...] G 2211 Complex e/[place], [address] CAPILLARY BLOOD DRAW, 41987 CBC WITH AUTO DIFF, 70417 IMMUNOTHERAPY INJECTIONS, 1036F TOBACCO NON-USER, G8783 BP SCR PRFRM RCMDD DEFIND SCR INTVL, 3074F SYST BP LT 130 MM HG, 3078F DIAST BP < 80 MM HG * Follow Up: p rn * Images: Billing Information: * Visit Code: 63196 Office Visit, Est Pt., Level 3. Modifiers: 25 * Procedure Codes: G2211 Complex e/[place]. [address] CAPILLARY BLOOD DRAW. 33966 CBC WITH AUTO DIFF. 36445 IMMUNOTHERAPY INJECTIONS. 1036F TOBACCO NON-USER. G8783 BP SCR PRFRM RCMDD DEFIND SCR INTVL. 3074F SYST BP LT 130 MM HG. 3078F DIAST BP < 80 MM HG. * Electronic signature of Samy Roberts MD on 03/13/2025 at 12:13 PM EDT Sign off status: Pending * Provider: Samy Roberts M.D. Date: 0 02/20/2025 Generated for Rose varela/Aida/Jae on: 1 12:13 [...]
--- OUTSIDE RECORDS SUMMARY | 2025-02-26 12:29 | XMS_ITS | Encounter Summary ---
Author Organization Healthcare Address [address] 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 0 07/23/2022 CAGE Questionnaire Score 0 023 Comments No Sex and Gender Information Value Date Recorded Sex Assigned at Female 05/15/2021 3:09 PM EST Legal Sex Female 8:10 PM EDT Gender Identity Female 05/15/2021 3:09 PM EST Sexual Orientation Straight 05/15/2021 3: 09 PM EST documented as of this encounter Medications at Time of Discharge acetaminophen (Tylenol) 500 MG tablet Take 2 tablets (1,000 mg total) by mouth every 6 (six) hours if needed for pain. 40 tablet 07/25/2022 albuterol 108 (90 Base) MCG/ACT inhaler INHALE TWO PUFFS BY MOUTH EVERY 4 TO 6 HOURS FOR SHORTNESS OF BREATH, WHEEZING, CHEST TIGHTNESS, OR COUGHING 06/02/2023 allopurinol (Zyloprim) 300 MG tablet 1 (one) time each day. 05/03/2010 aspirin 81 MG EC tablet Take 1 tablet by mouth Daily. azelastine (Astelin) 0.1 % nasal spray INSTILL 2 SPRAYS IN EACH NOSTRIL TWICE DAILY 06/11/2021 calcium citrate 600 mg and vitamin D3 (Citrical & Minerals + Vit D) 600-200 MG-UNIT tablet 1 (one) time each day at the same time. Calcium-Magnesium- Vitamin D (CALCIUM 1200+D3 PO) Take 1 tablet by mouth 1 (one) time each day. cetirizine (ZyrTEC) 10 MG tablet Take 1 tablet (10 mg) by mouth daily. 10/21/2021 denosumab (Prolia) 60 MG/ML injection Inject 1 mL (60 mg) under the skin 1 (one) time. doxycycline (Vibramycin) 100 MG capsule TAKE ONE CAPSULE BY MOUTH TWICE DAILY -- FINISH ALL MEDICINE -- 02/20/2025 estradiol (Vagifem) 10 MCG tablet vaginal tablet 3 times a week 11/14/2018 ferrous sulfate 325 (65 Fe) MG tablet Take 1 tablet (325 mg) by mouth daily with breakfast. fluticasone (Flonase) 50 MCG/ACT nasal spray 03/06/2024 fluticasone (Flovent) 110 MCG/ACT inhaler 06/19/2024 furosemide (Lasix) 20 MG tablet Take 1 tablet (20 mg) by mouth daily as needed. 10/11/2023 gabapentin (Neurontin) 100 MG capsule 4 (four) times a day. Keppra XR 500 MG 24 hr tablet TAKE ONE TABLET BY MOUTH IN THE MORNING & TAKE 4 TABLETS BY MOUTH AT BEDTIME DAILY DIRECTED 10/24/2021 montelukast (Singulair) 10 MG tablet Take 1 tablet (10 mg) by mouth nightly. 01/19/2022 Multiple Vitamin (multivitamin) tablet Take 1 tablet by mouth daily. olmesartan (BENIcar) 20 MG tablet 06/19/2024 olopatadine (Patanol) 0.1 % ophthalmic solution every 12 (twelve) hours. OLOPATADINE HCL OP 03/06/2024 omega-3 (Fish Oil) 1200 MG capsule 1 (one) time each day at the same time. omeprazole (PriLOSEC) [address] capsule Take 1 capsule by mouth daily. 08/23/2024 pancrelipase, Zet-Tgzh-Ftvw, (Zenpep) 68919-38[address] units capsule delayed-release particles capsule 3 (three) times a day with meals. 03/15/2017 psyllium (Konsyl Daily Fiber) 100 % packet Take 1 packet by mouth daily. rosuvastatin (Crestor) 10 MG tablet Take 1 tablet (10 mg) by mouth daily. Xiidra 5 % solution instill 1 drop IN EACH EYE EVERY TWELVE HOURS calcitriol (Rocaltrol) 0.25 MCG capsuleIndications :Age-related osteoporosis without current pathological fracture Take 1 capsule by mouth daily. 30 capsule 5 09/03/2024 documented as of this encounter Plan of Treatment Upcoming Encounters Date Type Department Care Team (Late st Contact Info) Description 03/28/2025 11:00 AM EDT Pharmacist Visit [facility] [address], [address] [place] [address] Chapo Santoro, PharmD [address] [place] [address] 03/29/2025 10:40 AM EDT Office Visit [facility] Nephrology, Bone & Mineral Metabolism [address], [address] [place] [address] Edinson Reyes MD [address] [place] [address] documented as of this encounter Procedures Procedure Name Priority Date/Time Associated Diagnosis Comments XR HIPS BILATERAL 2 VIEWS Routine 02/26/2025 12:51 PM EDT Hip pain, bilateral XR KNEE RIGHT 1 OR 2 VIEWS Routine 02/26/2025 12:51 PM EDT Pain XR KNEE LEFT 1 OR 2 VIEWS Routine 02/26/2025 12:51 PM EDT Left knee pain, unspecified chronicity documented in this encounter Results * XR Knee Right 1 or 2 Views (02/26/2025 12:51 PM EDT) Anatomical Region Laterality Modality Lower Extremities, Knee Right Digital Radiography Impressions 02/26/2025 3:04 PM EDT Redemonstration of bilateral total knee arthroplasties in unchanged alignment with no hardware complications. Left total hip arthroplasty in unchanged alignment with no evidence of hardware loosening or failure. Nkfg-df-vpynrlff right hip osteoarthrosis. CRITICAL RESULT: No. COMMUNICATION: Per this written report. By electronically signing this report, I, the attending physician, attest that I have personally reviewed the images/data for the above examination(s) and agree with the final edited report. Drafted by Braulio Thurman MD on 02/26/2025 1:10 PM Final report signed by Jaiden Bower on 02/26/2025 3:04 PM Narrative 02/26/2025 3:04 PM EDT CLINICAL INDICATION: pain TECHNIQUE: XR KNEE RIGHT 1 OR 2 VIEWS, XR KNEE LEFT 1 OR 2 VIEWS, XR HIPS BILATERAL 2 VIEWS COMPARISON: X-ray 06/21/2024. FINDINGS: Right knee: Redemonstration of right total knee arthroplasty in unchanged alignment. No evidence of hardware loosening or failure. No newly visualized fractures. Soft tissue swelling. No suprapatellar effusion. Left knee: Redemonstration of left total knee arthroplasty in unchanged alignment. No evidence of hardware loosening or failure. Small suprapatellar effusion. No newly visualized fractures. Vascular calcifications.. Bilateral hips: Left total knee arthroplasty. No hardware loosening or fracture. Lower lumbar spine and sacroiliac joints posterior fusion hardware is partially visualized. Kajh-ad-cphjnpbp osteoarthrosis of the right hip. Femoral head is well-seated within the acetabulum. No acute fracture or dislocation.. Procedure Note Jaiden Bower MD - 02/26/2025 CLINICAL INDICATION: pain TECHNIQUE: XR KNEE RIGHT 1 OR 2 VIEWS, XR KNEE LEFT 1 OR 2 VIEWS, XR HIPS BILATERAL 2VIEWS COMPARISON: X-ray 06/21/2024. FINDINGS: Right knee: Redemonstration of right total knee arthroplasty in unchangedalignment. No evidence of hardware loosening or failure. No newlyvisualized fractures. Soft tissue swelling. No suprapatellar effusion. Left knee: Redemonstration of left total knee arthroplasty in unchangedalignment. No evidence of hardware loosening or failure. Smallsuprapatellar effusion. No newly visualized fractures. Vascularcalcifications.. Bilateral hips: Left total knee arthroplasty. No hardware loosening orfracture. Lower lumbar spine and sacroiliac joints posterior fusionhardware is partially visualized. Zvhx-nt-afyuozwc osteoarthrosis of theright hip. Femoral head is well-seated within the acetabulum. No acutefracture or dislocation.. IMPRESSION: Redemonstration of bilateral total knee arthroplasties in unchangedalignment with no hardware complications. Left total hip arthroplasty in unchanged alignment with no evidence ofhardware loosening or failure. Ybgj-vd-vlogutgf right hip osteoarthrosis. CRITICAL RESULT: No. COMMUNICATION: Per this written report. By electronically signing this report, I, the attending physician, attestthat I have personally reviewed the images/data for the aboveexamination(s) and agree with the final edited report. Drafted by Braulio Thurman MD on 02/26/2025 1:10 PM Final report signed by Jaiden Bower on 02/26/2025 3:04 PM us Fortino COOPER IMG XR PROCEDURES Final Resul t * New Patient: XR Hip (AP Pelvis Standing with Enmanuel Marker / Frog Leg Lateral Standing) (02/26/2025 12:51 PM EDT) Anatomical Region Laterality Modality Hip, Pelvis Bilateral Digital Radiogra phy Impressions 02/26/2025 3:04 PM EDT Redemonstration of bilateral total knee arthroplasties in unchanged alignment with no hardware complications. Left total hip arthroplasty in unchanged alignment with no evidence of hardware loosening or failure. Rdhi-pm-nohfpieo right hip osteoarthrosis. CRITICAL RESULT: No. COMMUNICATION: Per this written report. By electronically signing this report, I, the attending physician, attest that I have personally reviewed the images/data for the above examination(s) and agree with the final edited report. Drafted by Braulio Thurman MD on 02/26/2025 1:10 PM Final report signed by Jaiden Bower on 02/26/2025 3:04 PM Narrative 02/26/2025 3:04 PM EDT CLINICAL INDICATION: pain TECHNIQUE: XR KNEE RIGHT 1 OR 2 VIEWS, XR KNEE LEFT 1 OR 2 VIEWS, XR HIPS BILATERAL 2 VIEWS COMPARISON: X-ray 06/21/2024. FINDINGS: Right knee: Redemonstration of right total knee arthroplasty in unchanged alignment. No evidence of hardware loosening or failure. No newly visualized fractures. Soft tissue swelling. No suprapatellar effusion. Left knee: Redemonstration of left total knee arthroplasty in unchanged alignment. No evidence of hardware loosening or failure. Small suprapatellar effusion. No newly visualized fractures. Vascular calcifications.. Bilateral hips: Left total knee arthroplasty. No hardware loosening or fracture. Lower lumbar spine and sacroiliac joints posterior fusion hardware is partially visualized. Jerw-ju-gmspdzeh osteoarthrosis of the right hip. Femoral head is well-seated within the acetabulum. No acute fracture or dislocation.. Procedure Note Jaiden Bower MD - 02/26/2025 CLINICAL INDICATION: pain TECHNIQUE: XR KNEE RIGHT 1 OR 2 VIEWS, XR KNEE LEFT 1 OR 2 VIEWS, XR HIPS BILATERAL 2VIEWS COMPARISON: X-ray 06/21/2024. FINDINGS: Right knee: Redemonstration of right total knee arthroplasty in unchangedalignment. No evidence of hardware loosening or failure. No newlyvisualized fractures. Soft tissue swelling. No suprapatellar effusion. Left knee: Redemonstration of left total knee arthroplasty in unchangedalignment. No evidence of hardware loosening or failure. Smallsuprapatellar effusion. No newly visualized fractures. Vascularcalcifications.. Bilateral hips: Left total knee arthroplasty. No hardware loosening orfracture. Lower lumbar spine and sacroiliac joints posterior fusionhardware is partially visualized. Ptbi-fc-aohrtmbh osteoarthrosis of theright hip. Femoral head is well-seated within the acetabulum. No acutefracture or dislocation.. IMPRESSION: Redemonstration of bilateral total knee arthroplasties in unchangedalignment with no hardware complications. Left total hip arthroplasty in unchanged alignment with no evidence ofhardware loosening or failure. Usqz-gm-xicksrsm right hip osteoarthrosis. CRITICAL RESULT: No. COMMUNICATION: Per this written report. By electronically signing this report, I, the attending physician, attestthat I have personally reviewed the images/data for the aboveexamination(s) and agree with the final edited report. Drafted by Braulio Thurman MD on 02/26/2025 1:10 PM Final report signed by Jaiden Bower on 02/26/2025 3:04 PM us Jaiden Fuentes MD IMG XR PROCEDURES Final Resul t * XR Knee Left 1 or 2 Views (02/26/2025 12:51 PM EDT) Anatomical Region Laterality Modality Lower Extremities, Knee Left Digital Radiography Impressions 02/26/2025 3:04 PM EDT Redemonstration of bilateral total knee arthroplasties in unchanged alignment with no hardware complications. Left total hip arthroplasty in unchanged alignment with no evidence of hardware loosening or failure. Qeew-qf-yvkucqdk right hip osteoarthrosis. CRITICAL RESULT: No. COMMUNICATION: Per this written report. By electronically signing this report, I, the attending physician, attest that I have personally reviewed the images/data for the above examination(s) and agree with the final edited report. Drafted by Braulio Thurman MD on 02/26/2025 1:10 PM Final report signed by Jaiden Bower on 02/26/2025 3:04 PM Narrative 02/26/2025 3:04 PM EDT CLINICAL INDICATION: pain TECHNIQUE: XR KNEE RIGHT 1 OR 2 VIEWS, XR KNEE LEFT 1 OR 2 VIEWS, XR HIPS BILATERAL 2 VIEWS COMPARISON: X-ray 06/21/2024. FINDINGS: Right knee: Redemonstration of right total knee arthroplasty in unchanged alignment. No evidence of hardware loosening or failure. No newly visualized fractures. Soft tissue swelling. No suprapatellar effusion. Left knee: Redemonstration of left total knee arthroplasty in unchanged alignment. No evidence of hardware loosening or failure. Small suprapatellar effusion. No newly visualized fractures. Vascular calcifications.. Bilateral hips: Left total knee arthroplasty. No hardware loosening or fracture. Lower lumbar spine and sacroiliac joints posterior fusion hardware is partially visualized. Kqan-xy-icdaqtuf osteoarthrosis of the right hip. Femoral head is well-seated within the acetabulum. No acute fracture or dislocation.. Procedure Note Jaiden Bower MD - 02/26/2025 CLINICAL INDICATION: pain TECHNIQUE: XR KNEE RIGHT 1 OR 2 VIEWS, XR KNEE LEFT 1 OR 2 VIEWS, XR HIPS BILATERAL 2VIEWS COMPARISON: X-ray 06/21/2024. FINDINGS: Right knee: Redemonstration of right total knee arthroplasty in unchangedalignment. No evidence of hardware loosening or failure. No newlyvisualized fractures. Soft tissue swelling. No suprapatellar effusion. Left knee: Redemonstration of left total knee arthroplasty in unchangedalignment. No evidence of hardware loosening or failure. Smallsuprapatellar effusion. No newly visualized fractures. Vascularcalcifications.. Bilateral hips: Left total knee arthroplasty. No hardware loosening orfracture. Lower lumbar spine and sacroiliac joints posterior fusionhardware is partially visualized. Fhel-hz-ljjkmdow osteoarthrosis of theright hip. Femoral head is well-seated within the acetabulum. No acutefracture or dislocation.. IMPRESSION: Redemonstration of bilateral total knee arthroplasties in unchangedalignment with no hardware complications. Left total hip arthroplasty in unchanged alignment with no evidence ofhardware loosening or failure. Cvvu-qi-cmqpzyri right hip osteoarthrosis. CRITICAL RESULT: No. COMMUNICATION: Per this written report. By electronically signing this report, I, the attending physician, attestthat I have personally reviewed the images/data for the aboveexamination(s) and agree with the final edited report. Drafted by Braulio Thurman MD on 02/26/2025 1:10 PM Final report signed by Jaiden Bower on 02/26/2025 3:04 PM us Fortino COOPER IMG XR PROCEDURES Final Resul t documented in this encounter Visit Diagnoses Diagnosis Left knee pain, unspecified chronicity Hip pain, bilateral Pain in joint, pelvic region and thigh Pain Generalized pain documented in this encounter Additional Health Concerns Assessment Noted Time PHQ-9 Depression Total Score: 0 11/02/19 25 1:34 PM EDT A fall risk assessment has been complete d for the patient 02/26/2025 12:58 PM EDT A Body Mass Index follow-up plan has been documented for the patient 02/26/2025 3:03 PM EDT documented as of this encounter Care Teams Surveyor Oil Well Directional Relationship Specialty Start Date End Date Gary Roberts MD [address] [place] [address] PCP - General 10/18/20 documented as of this encounter
--- OUTSIDE RECORDS SUMMARY | 2025-02-26 12:50 | XMS_ITS | Encounter Summary ---
Author Organization [facility] Address [address] [place] [address] Care Team Providers Care Power Marketer Name Role Phone Gary Roberts MD Primary Care Provider +1- [phone] Reason for Referral * Other Medical (Routine) - Pending Review Specialty Diagnoses / Procedures Referred By Contac t Referred To Contact Diagnoses Hip pain, bilateral Procedures Injection - Large Joint: bilateral greater trochanteric bursa Jaiden Fuentes MD [address] [address] Phone: tel: fax: Referral ID Status Reason Start Date Expiration Date V isits Requested Visits Authorized [id number] Pending Review 02/26/2025 08/28/2026 1 1 Reason for Visit * Reason Comments Follow-up Follow-up Follow-up Follow-up Encounter Details Date Type Department Care Team ([facility] st Contact Info) Description 02/26/2025 12:50 PM EDT Office Visit Medical Office Building Surgery Spine & Joint [address], [address] [place] [address] [facility]iden [facility]entes MD [address] [facility] [address] [place] [address] Hip pain, bilateral (Primary Dx) [...] drink first t figueroa in the morning (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 She cannot take anti-inflammatories because her diesel technician mechanic told her she should not. HPI Review [...] procedure. Hank Painting MD PGY-5, Orthopaedic Surgery [facility] Patient ID: Fani Mondragon is a 74 [...] called to verify the correctpatient, procedure, equipment, care support representative and site/side marked as required. Patient was [...] Description 03/28/2025 11:00 AM EDT Pharmacist Visit [facility] [place] Bone & Mineral Metabolism [address], [address] [place] [address] Chapo Santoro, PharmD [address] [place] [address] 03/29/2025 10:40 AM EDT Office Visit [facility] [place] Nephrology, Bone & Mineral Metabolism [address], [address] [place] [address] Edinson Reyes MD [address] [place] [address] documented as of this encounter Procedures Procedure Name Priority Date/Time Associated Diagnosis Comments NE ARTHROCENTESIS ASPIR&/INJ MAJOR JT/BURSA W/O US Routine [...] no evidence of hardware loosening or failure. Iyec-lt-mbytqoxk right hip osteoarthrosis. CRITICAL RESULT: No. COMMUNICATION: [...] joints posterior fusion hardware is partially visualized. Rmnb-pc-rntsjiuc osteoarthrosis of the right hip. Femoral head [...] sacroiliac joints posterior fusionhardware is partially visualized. Dpnk-ye-hjeofseg osteoarthrosis of theright hip. Femoral head is well-seated within the acetabulum. No acutefracture or dislocation.. IMPRESSION: Redemonstration of bilateral total knee arthroplasties in unchangedalignment with no hardware complications. Left total hip arthroplasty in unchanged alignment with no evidence ofhardware loosening or failure. Edcw-ww-mtombihm right hip osteoarthrosis. CRITICAL RESULT: No. COMMUNICATION: [...] IMG XR PROCEDURES Final Resul t * NE ARTHROCENTESIS ASPIR&/INJ MAJOR JT/BURSA W/O US (02/26/2025 [...] to verify the correct patient, procedure, equipment, care support representative and site/side marked as required. Patient was [...] Once PRN Procedure, 1 dose, Starting on 02/26/25 at 1250, Until Wed02/26/25 at 1250, RoutineIndications:Hip [...] Time PHQ-9 Depression Total Score: 0 11/02/19 1:34 PM EDT A fall risk assessment has been complete d for the patient 02/26/2025 12:58 PM EDT A Body Mass Index follow-up plan has been documented for the patient 02/26/2025 3:03 PM EDT documented as of this encounter Care Teams Power Marketer Relationship Specialty Start Date End Date Gary Roberts MD [address] [place] [address] PCP - General 10/18/20 documented as of this encounter
--- OUTSIDE RECORDS SUMMARY | 2025-03-02 09:30 | XMS_ITS ---
[facility] Address [address] [place] [id number] Care Team Providers Care Pediatric Dental Assistant Name Role Phone Samy Roberts Primary Care Provider REASON FOR VISIT allergy shot Medications Medication [...] OUTH EVERY DAY; Duration: 90 Active Nystatin-Triamcinolone 640755-7.1 UNIT/GM 1 application Externally Twice a day 04/28/2024 Active Albuterol Sulfate HFA 108 (90 Base) MCG/ACT 1 puff as needed Inhalation every 4 hrs Active Zenpep 43790-55806 UNIT 1 cap(s) Orally Three times a [...] Active Encounters Encounter Location Date Provider Diagnosis [facility] [address] [facility] [address] [place], [place] [phone] 03/02/2025 Samy Roberts Allergic rhinitis, unspecified seasonality, [...] JOSÉ MIGUEL CARTERB:1950 ( 74 yo F)Acc No.[id number]:03/02/2025 Patient: ISMAEL HENLEY Provider: Samy Roberts M.D. :1950 A ge:74 Y S ex:Female Date:03/02/2025 Address:[address] [place], [place] [id number] Subjective: * Chief Complaints: * 1 . [...] Inhalation every 4 hrs , Taking Zenpep 04019-14841 UNIT Capsule Delayed Release Particles 1 cap(s) Orally Three times a day , Taking Nystatin-Triamcinolone 838238-3.1 UNIT/GM Cream 1 application Externally Twice a [...] Information: * Visit Code: * Procedure Codes: 85313 IMMUNOTHERAPY INJECTIONS. * Electronic signature of Samy Roberts MD on 03/13/2025 at 12:13 PM EDT Sign off status: Pending * Provider: Samy Roberts M.D. Date: 0 03/02/2025 Generated for Rose varela/Aida/Jae on: 1 12:13 PM EDT
--- OUTSIDE RECORDS SUMMARY | 2025-03-06 10:30 | XMS_ITS ---
[facility] Address [address] [place] [id number] Care Team Providers Care Large Animal Veterinarian Name Role Phone Samy Roberts Primary Care Provider [phone] Allergies Allergen (clinical drug ingredient) Drug/Non Drug [...] once daily; Duration: 90 days Active Nystatin-Triamcinolone 073821-5.1 UNIT/GM 1 application Externally Twice a day 04/28/2024 Active Zenpep 01627-67972 UNIT 1 cap(s) Orally Three times a [...] Status W/U Status Risk Notes Problem Leukocytosis (042883214) Leukocytosis (D72.829) Active confirmed Vital Signs Blood pressure systolic 100 mm Hg 03/06/20 25 Blood pressure diastolic 60 mm Hg 025 Heart Rate 90 /min 03/06/2025 Height 64.50 in 03/06/2025 Weight 191.4 lbs 03/06/2025 BMI 32.34 kg/m2 03/06/2025 Encounters Encounter Location Date Provider Diagnosis [facility] [address] [facility] [address] [place] [id number] 03/06/2025 Samy Roberts Leukocytosis D72.829 ; Cough [...] Follow Up: prn, Reason: Progress Notes * EMMA JOSÉ MIGUELB:1950 ( 74 yo F)Acc No.[id number]:03/06/2025 Progress Notes Patient: ISMAEL HENLEY Provider: Samy Roberts M.D. :1950 A ge:74 Y S ex:Female Date:03/06/2025 Address:[id number] Subjective: * Chief Complaints: * 1 . [...] Replacement 03/17/2013, Rt Total Knee Replacement 11/15/2013, [facility]-Lumbar Fusion (L3,L4,L5) - Dr. Gipson 06/2014, Gastric Sleeve 03/26/17, Lt Eye Cataract- Dr. Zaman 02/2019, T11-L5 spinal fusion, Dr. Wen quintero 04/05/2019, Rt Cataract 10/2019, Back Surgery/ Rods placed by Dr. Carver - 07/22/2022. * Hospitalization/Major Diagno stic Procedure: S vijay 1978 ,1995. * Family History: F ather: 64 yrs, [place]. M other: 69 yrs, [place]. P aternal [...] Inhalation every 4 hrs , Taking Zenpep 86971-46112 UNIT Capsule Delayed Release Particles 1 cap(s) Orally Three times a day , Taking Nystatin-Triamcinolone 294749-1.1 UNIT/GM Cream 1 application Externally Twice a [...] G 2211 Complex e/[place], [address] CBC WITH AUTO DIFF, 84282 GLUCOSE TEST, 27923 CAPILLARY BLOOD DRAW * Follow Up: p rn * Images: Billing Information: * Visit Code: 46264 Office Visit, Est Pt., Level 3. * Procedure Codes: G2211 Complex e/[place]. [address] CBC WITH AUTO DIFF. 57265 GLUCOSE TEST. 78617 CAPILLARY BLOOD DRAW. * Electronic signature of Samy Roberts MD on 03/13/2025 at 12:13 PM EDT Sign off status: Pending * Provider: Samy Roberts M.D. Date: 0 03/06/2025 Generated for Rose varela/Aida/Franitting on: 12:13 PM EDT History and Physical Notes * Examination Category Sub-Category Detail Notes Category Not es General Examination She come s in by wheelchair accompanied by her . She appears in no distress. HEENT is unremarkable. Neck is supple with no masses or bruits. Lungs are clear to auscultation. Heart is regular with no murmurs. Extremities no edema.
[2025-03-13 08:51] VITALS: BMI 34.9
--- NOTE | 2025-03-13 12:13 | XR_ITS ---
FINAL REPORT CLINICAL HISTORY: SOA, COUGH FINDINGS: 2 views of the chest were obtained . The heart is normal in size. The mediastinum is within normal limits. The lungs are clear. There is no pneumothorax. Osseous structures are unremarkable. IMPRESSION: No acute cardiopulmonary process. Reviewed, Interpreted and Dictated by Leila Basilio MD Transcribed by Yvette Haynes Authenticated and [facility]
--- OUTSIDE RECORDS SUMMARY | 2025-03-13 12:13 | XMS_ITS | Referral Summary ---
Author Organization [employer] ([place], [place], [place], [place]) Address [address] [place] [address] Care Team Providers Care Trade Specialist Name Role Phone Gary Roberts MD Primary Care Provider [phone]- [phone] Encounters Date Type Department Care Team Description 12/20/2024 2:00 PM EDT Lab Patient Walk-In Lab [address] [place] [address] S/P gastric sleeve procedure; Disorder of iron metabolism; Vitamin B deficiency 12/20/2024 1:00 PM EDT Office Visit Bariatric Services [address] [facility] [address] [place] [address] Shahida Orellana MD S/P gastric [...] mg total) by mouth in the morning. 3 Active azelastine (ASTELIN) 137 mcg (0.1 %) nasal spray 1-2 sprays in the morning and 1-2 sprays before bedtime. 3 Active Keppra XR 500 mg 24 hr tablet Take by mouth. 3 Active Zenpep 20,000-63,000- 84,000 unit CpDR capsule Take 1 capsule (20,000 units of lipase total) by mouth in the morning and 1 capsule (20,000 units of lipase total) at noon and 1 capsule (20,000 units of lipase total) in the evening. 3 Active acetaminophen (TYLENOL) 500 MG tablet Take 2 tablets (1,000 mg total) by mouth every 6 (six) hours if needed. 3 Active aspirin 81 MG EC tablet Take 1 tablet (81 mg total) by mouth. Active cholecalciferol , vitamin D3, 50 mcg (2,000 unit) Cap Take 1 capsule (2,000 Units total) by mouth. Active gabapentin (NEURONTIN) 100 MG capsule SMARTSI-3 Capsule(s) By Mouth 3 Times Daily 3 Active montelukast (SINGULAIR) 10 mg tablet Take 1 tablet (10 mg total) by mouth nightly. 3 Active rosuvastatin (CRESTOR) 10 MG tablet Take 1 tablet (10 mg total) by mouth in the morning. 3 Active omeprazole (PriLOSEC) 40 MG capsule Take 1 capsule (40 mg total) by mouth daily. 5 Active olmesartan (BENICAR) 20 MG tablet Take 1 tablet (20 mg total) by mouth daily. 5 Active furosemide (LASIX) 20 MG tablet Take 1 tablet (20 mg total) by mouth daily. 5 Active fluticasone propionate (FLOVENT HFA) 110 mcg/actuation inhaler 2 puffs 2 (two) times daily. 5 Active fluticasone propionate (FLONASE) 50 mcg/actuation nasal spray 1 spray 2 (two) times daily. 5 Active psyllium husk (Konsyl Sugar-Free) 6 gram pwpk packet Take 1 packet by mouth daily. Active multivitamin per tablet Take 1 tablet by mouth daily. Active Xiidra 5 % dpet 1 drop. 5 Active denosumab (Prolia) 60 mg/mL syrg as directed Subcutaneous every 6 months Active calcitRIOL (ROCALTROL) 0.25 MCG capsule Take 1 capsule (0.25 mcg total) by mouth daily. 5 Active Social History Tobacco Use Types Packs/Day [...] Date Delfin rded Speak language other than Botswanan at home Not on file 06/18/2023 Want [...] Care Team (Late st Contact Info) Description 12/19/2025 1:00 PM EDT Office Visit Bariatric Services [address] [place] [address] Shahida Orellana MD [address] [place] [address] Procedures Procedure Name Priority Date/Time Associated Diagnosis [...] 10.0 K/ L 12/20/2024 3:52 PM EDT [facility] RBC 4.17 3.93 - 6.08 M/ L 12/20/2024 3:52 PM EDT [facility] Hemoglobin 11.4 11.2 - 15.7 GM/DL 12/20/2024 3:52 PM EDT [facility] Hematocrit 36.9 34.1 - 44.9 % 12/20/2024 3:52 PM EDT [facility] MCV 89 79 - 95 fL 12/20/2024 3:52 PM EDT [facility] MCH 27.3 25.6 - 32.2 pg 12/20/2024 3:52 PM EDT [facility] MCHC 30.9(L) 32.2 - 36.5 GM/DL 12/20/2024 3:52 PM EDT [facility] RDW 14.8(H) 11.6 - 14.4 % 12/20/2024 3:52 PM EDT [facility] Platelets 310 163 - 369 K/CU MM 12/20/2024 3:52 PM EDT [facility] MPV 10.8 9.4 - 12.4 fL 12/20/2024 3:52 PM EDT [facility] % Neutros 64 34 - 71 % 12/20/2024 3:52 PM EDT [facility] % Lymphs 28 19 - 53 % 12/20/2024 3:52 PM EDT [facility] % Monos 6 4 - 13 % 12/20/2024 3:52 PM EDT [facility] % Eos 2 1 - 7 % 12/20/2024 3:52 PM EDT [facility] % Baso 1 0 - 1 % 12/20/2024 3:52 PM EDT [facility] # Neutros 7.55(H) 1.56 - 6.13 K/ L 12/20/2024 3:52 PM EDT [facility] # Lymphs 3.25 1.18 - 3.74 K/ L 12/20/2024 3:52 PM EDT [facility] # Monos 0.67 0.24 - 0.82 K/ L 12/20/2024 3:52 PM EDT [facility] # Eos 0.20 0.04 - 0.54 K/ L 12/20/2024 3:52 PM EDT [facility] # Baso 0.08 0.01 - 0.08 K/ L 12/20/2024 3:52 PM EDT [facility] Immature Granulocytes-Re lative 0.30 0.00 - 0.60 % 12/20/2024 3:52 PM EDT [facility] # IG 0.04 0.00 - 0.05 K/uL 12/20/2024 3:52 PM EDT [facility] Blood Venipuncture / Unknown 12/20/2024 2:06 PM EDT 12/20/2024 2:06 PM EDT Narrative [facility] - 12/20/2024 3:52 PM EDT When [...] MD LAB BLOOD ORDERABLES Final Resu lt [facility] [address] [phone] * MMA Serum/Plasma, Vitamin B12 Status(SENDOUT) (12/20/2024 2:06 PM EDT) MMA Serum/Plasma, Vitamin B12 Status 0.23 0.00 - 0.40 umol/L 12/26/2024 2:15 AM EDT [facility] Comment: INTERPRETIVE INFORMATION: MMA Serum/Plasma, Vitamin B12 Status This test was developed and its performance characteristics determined by [facility]. It has not been cleared or approved by the US Food and Drug Administration. This test was performed in a CLIA certified laboratory and is intended for clinical purposes. Performed By: [facility] [address] [place] [address] Car Inspector: Myron Dejesus MD, PhD CLIA Number: [id number] Blood Venipuncture / Unknown 12/20/2024 2:06 PM EDT 12/20/2024 2:06 PM EDT Shahida Orellana MD LAB BLOOD ORDERABLES Final Resu lt Performing Organization Address [facility]/ZIP Co de Phone Number [facility] [address] [place] [address], [facility] [phone] * Vitamin D, 25-Hydroxy (12/20/2024 2:06 PM EDT) Vitamin D 25-Hydroxy 70.02 30.0 - 100.0 ng/mL 12/20/2024 6:53 PM EDT [facility] Blood Venipuncture / Unknown 12/20/2024 2:06 PM EDT 12/20/2024 2:06 PM EDT Result [facility] Shahida Orellana MD LAB BLOOD ORDERABLES Final Resu lt Performing Organization Address City/[facility]/ZIP Co de Phone Number [facility] [address] [place] [address] * (ABNORMAL) PTH, intact (12/20/2024 2:06 PM EDT) PTH 91.4(H) 18.4 - 80.1 pg/mL 12/20/2024 4:13 PM EDT [facility] PTH Type (pg/mL) Non-IntraO p pg/mL 12/20/2024 4:13 PM EDT [facility] Blood Venipuncture / Unknown 12/20/2024 2:06 PM EDT 12/20/2024 2:06 PM EDT Result [facility] Shahida Orellana MD LAB BLOOD ORDERABLES Final Resu lt Performing Organization Address [facility]/ZIP Co de Phone Number [facility] [address] [phone] * Iron, serum (12/20/2024 2:06 PM EDT) Iron 51 50.0 - 170.0 ug/dL 12/20/2024 6:53 PM EDT [facility] Blood Venipuncture / Unknown 12/20/2024 2:06 PM EDT 12/20/2024 2:06 PM EDT Shahida Orellana MD LAB BLOOD ORDERABLES Final Resu lt Performing Organization Address [facility]/ZIP Co de Phone Number [facility] [address] [phone] * Ferritin (12/20/2024 2:06 PM EDT) Pathologist [facility] Ferritin 92.00 8.00 - 252.00 ng/mL 12/20/2024 6:53 PM EDT [facility] Blood Venipuncture / Unknown 12/20/2024 2:06 PM EDT 12/20/2024 2:06 PM EDT Shahida Orellana MD LAB BLOOD ORDERABLES Final Resu lt Performing Organization Address City/[facility]/ZIP Co de Phone Number [facility] [address] [phone] * (ABNORMAL) Comprehensive metabolic panel (12/20/2024 2:06 PM EDT) Sodium 141 136 - 146 meq/L 12/20/2024 6:53 PM EDT [facility] Potassium 4.5 3.5 - 5.1 meq/L 12/20/2024 6:53 PM EDT [facility] Chloride 105 102 - 112 meq/L 12/20/2024 6:[facility] CO2 30 21 - 32 meq/L 12/20/2024 6:53 PM [facility] Calcium 8.9 8.5 - 10.1 mg/dL 12/20/2024 6:53 PM [facility] Glucose 96 74 - 106 mg/dL 12/20/2024 6:53 PM [facility] BUN 19 7 - 22 mg/dL 12/20/2024 6:53 PM [facility] Creatinine 0.89 0.55 - 1.02 mg/dL 12/20/2024 6:53 PM [facility] BUN/Creatinine 21(H) 8 - 20 12/20/2024 6:53 PM [facility] Albumin 3.5 3.4 - 5.0 g/dL 12/20/2024 6:53 PM [facility] Alkaline Phosphatase 83 27 - 136 U/L 12/20/2024 6:53 PM [facility] ALT 30 12 - 78 U/L 12/20/2024 6:53 PM [facility] AST 27 5 - 37 U/L 12/20/2024 6:53 PM [facility] Total Bilirubin 0.4 0.2 - 1.3 mg/dL 12/20/2024 6:53 PM [facility] Protein, Total 7.0 6.4 - 8.2 gm/dL 12/20/2024 6:53 PM [facility] Anion Gap 11 9 - 20 12/20/2024 6:53 PM [facility] A/G Ratio 1.0(L) 1.1 - 2.5 12/20/2024 6:53 PM [facility] Globulin 3.5 1.5 - 4.5 g/dL 12/20/2024 6:53 PM [facility] Osmolality Calc 283.4 mOsm/kg 6:53 PM [facility] eGFR (mL/min/1.73m2) >60 >=60 mL/min/1.7 3m2 12/20/2024 6:53 PM [facility] Comment:ESTIMATED GFR IS NOT ACCURATE CREATININE CLEARANCE IN PREDICTING GLOMERULAR FILTRATION RATE. ESTIMATED GFR IS NOT APPLICABLE FOR DIALYSIS PATIENTS. Blood Venipuncture / Unknown 12/20/2024 2:06 PM EDT 12/20/2024 2:06 PM EDT us Shahida Orellana MD LAB BLOOD ORDERABLES Final Resu lt [facility] [address] [id number], [facility] [phone] from Last 3 Months Insurance [place] [id number] [facility] MEDICARE ADVANTAGE Care Teams Trade Specialist Relationship Specialty Start Date End Date Gary Rboerts MD [address] [place], [place] [address] PCP - General Family Medicine 11/16/22
--- OUTSIDE RECORDS SUMMARY | 2025-03-13 12:13 | XMS_ITS | Clinical Summary ---
Author Organization [employer] ([place], [place], [place], [place]) Address [address] [place] [address] Care Team Providers Care Bead Builder Name Role Phone Gary Roberts MD Primary Care Provider +1- [phone] Allergies Active Allergy Reactions Criticality Noted Date [...] Active Xiidra 5 % dpet 1 drop. Active denosumab (Prolia) 60 mg/mL syrg as directed Subcutaneous every 6 months Active calcitRIOL (ROCALTROL) 0.25 MCG capsule Take 1 capsule (0.25 mcg total) by mouth daily. 5 Active Encounters Date Type Department Care Team Description 12/20/2024 2:00 PM EDT Lab Patient Walk-In [facility] Lab [address] [place] [address] S/P gastric sleeve procedure; Disorder of iron metabolism; Vitamin B deficiency 12/20/2024 1:00 PM EDT Office Visit [facility] Bariatric Services [address] [facility] [address] [place] [address] Shahida Orellana MD S/P gastric [...] Date Delfin rded Speak language other than Beninese at home Not on file 06/18/2023 Want [...] Description 12/19/2025 1:00 PM EDT Office Visit [facility] Bariatric Services [address] [place] [address] Shahida Orellana MD [address] [place] [address] Health Maintenance Due Date Last Done Comments CT Colonography 1950 Colonoscopy 1950 Colorectal Cancer Screening 1950 DXA SCAN 1950 FOBT/FIT 1950 Fit-DNA (Cologuard) 1950 Sigmoidoscopy 1950 Depression Screening (12+) 1962 Hepatitis C Screening 1968 DTAP/TDAP/TD VACCINES (1 - Tdap) 1969 Shingles Vaccine (Zoster) (1 of 2) 2000 Medicare Initial AWV G0438 06/08/2023 Falls Risk Screening 06/07/2024 COVID-19 VACCINE (7 - 2024-2 6 season) 2025 03/11/2022, 03/12/2021, 07/22/2020, Additional history exists Influenza Vaccine (#1) 2025 , 03/11/2020, 02/23/2020, [...] 10.0 K/ L 12/20/2024 3:52 PM EDT [facility] RBC 4.17 3.93 - 6.08 M/ L 12/20/2024 3:52 PM EDT [facility] Hemoglobin 11.4 11.2 - 15.7 GM/DL 12/20/2024 3:52 PM EDT [facility] Hematocrit 36.9 34.1 - 44.9 % 12/20/2024 3:52 PM EDT [facility] MCV 89 79 - 95 fL 12/20/2024 3:52 PM EDT [facility] MCH 27.3 25.6 - 32.2 pg 12/20/2024 3:52 PM EDT [facility] MCHC 30.9(L) 32.2 - 36.5 GM/DL 12/20/2024 3:52 PM EDT [facility] RDW 14.8(H) 11.6 - 14.4 % 12/20/2024 3:52 PM EDT [facility] Platelets 310 163 - 369 K/CU MM 12/20/2024 3:52 PM EDT [facility] MPV 10.8 9.4 - 12.4 fL 12/20/2024 3:52 PM EDT [facility] % Neutros 64 34 - 71 % 12/20/2024 3:52 PM EDT [facility] % Lymphs 28 19 - 53 % 12/20/2024 3:52 PM EDT [facility] % Monos 6 4 - 13 % 12/20/2024 3:52 PM EDT [facility] % Eos 2 1 - 7 % 12/20/2024 3:52 PM EDT [facility] % Baso 1 0 - 1 % 12/20/2024 3:52 PM EDT [facility] # Neutros 7.55(H) 1.56 - 6.13 K/ L 12/20/2024 3:52 PM EDT [facility] # Lymphs 3.25 1.18 - 3.74 K/ L 12/20/2024 3:52 PM EDT [facility] # Monos 0.67 0.24 - 0.82 K/ L 12/20/2024 3:52 PM EDT [facility] # Eos 0.20 0.04 - 0.54 K/ L 12/20/2024 3:52 PM EDT [facility] # Baso 0.08 0.01 - 0.08 K/ L 12/20/2024 3:52 PM EDT [facility] Immature Granulocytes-Re lative 0.30 0.00 - 0.60 % 12/20/2024 3:52 PM EDT [facility] # IG 0.04 0.00 - 0.05 K/uL 12/20/2024 3:52 PM EDT [facility] Blood Venipuncture / Unknown 12/20/2024 2:06 PM EDT 12/20/2024 2:06 PM EDT Narrative [facility] - 12/20/2024 3:52 PM EDT When [...] ORDERABLES Final Resu lt Performing Organization Address [facility]/ZIP Co de Phone Number [facility] [address] [phone] * MMA Serum/Plasma, Vitamin B12 Status(SENDOUT) (12/20/2024 2:06 PM EDT) MMA Serum/Plasma, Vitamin B12 Status 0.23 0.00 - 0.40 umol/L 12/26/2024 2:15 AM EDT [facility] Comment: INTERPRETIVE INFORMATION: MMA Serum/Plasma, Vitamin B12 Status This test was developed and its performance characteristics determined by [facility]. It has not been cleared or approved by the US Food and Drug Administration. This test was performed in a CLIA certified laboratory and is intended for clinical purposes. Performed By: [facility] [address] [place] [address] Remote Sensing Engineer: Myron Dejesus MD, PhD CLIA Number: [id number] Blood Venipuncture / Unknown 12/20/2024 2:06 PM EDT 12/20/2024 2:06 PM EDT Shahida Orellana MD LAB BLOOD ORDERABLES Final Resu lt Performing Organization Address [facility] Co de Phone Number [facility] [address] [place] [address], [facility] [phone] * Vitamin D, 25-Hydroxy (12/20/2024 2:06 PM EDT) Vitamin D 25-Hydroxy 70.02 30.0 - 100.0 ng/mL 12/20/2024 6:53 PM EDT [facility] Blood Venipuncture / Unknown 12/20/2024 2:06 PM EDT 12/20/2024 2:06 PM EDT Shahida Orellana MD LAB BLOOD ORDERABLES Final Resu lt Performing Organization Address City/[facility]/ZIP Co de Phone Number [facility] [address] [place] [address], [facility] [phone] * (ABNORMAL) PTH, intact (12/20/2024 2:06 PM EDT) PTH 91.4(H) 18.4 - 80.1 pg/mL 12/20/2024 4:13 PM EDT [facility] PTH Type (pg/mL) Non-IntraO p pg/mL 12/20/2024 4:13 PM EDT [facility] Blood Venipuncture / Unknown 12/20/2024 2:06 PM EDT 12/20/2024 2:06 PM EDT us Shahida Orellana MD LAB BLOOD ORDERABLES Final Resu lt Performing Organization Address [facility]/ZIP Co de Phone Number [facility] [address] [place] [address], [facility] [phone] * Iron, serum (12/20/2024 2:06 PM EDT) Iron 51 50.0 - 170.0 ug/dL 12/20/2024 6:53 PM EDT [facility] Blood Venipuncture / Unknown 12/20/2024 2:06 PM EDT 12/20/2024 2:06 PM EDT Shahida Orellana MD LAB BLOOD ORDERABLES Final Resu lt [facility] [address] [place] [address], [facility] [phone] * Ferritin (12/20/2024 2:06 PM EDT) Pathologist [facility] Ferritin 92.00 8.00 - 252.00 ng/mL 12/20/2024 6:53 PM EDT [facility] Blood Venipuncture / Unknown 12/20/2024 2:06 PM EDT 12/20/2024 2:06 PM EDT us Shahida Orellana MD LAB BLOOD ORDERABLES Final Resu lt Performing Organization Address City/[facility]/ZIP Co de Phone Number [facility] [address] [phone] * (ABNORMAL) Comprehensive metabolic panel (12/20/2024 2:06 PM EDT) [facility] Sodium 141 136 - 146 meq/L 12/20/2024 6:53 PM EDT [facility] Potassium 4.5 3.5 - 5.1 meq/L 12/20/2024 6:53 PM EDT [facility] Chloride 105 102 - 112 meq/L 12/20/2024 6:53 PM EDT [facility] CO2 30 21 - 32 meq/L 12/20/2024 6:53 PM EDT [facility] Calcium 8.9 8.5 - 10.1 mg/dL 12/20/2024 6:53 PM EDT [facility] Glucose 96 74 - 106 mg/dL 12/20/2024 6:53 PM EDT [facility] BUN 19 7 - 22 mg/dL 12/20/2024 6:53 PM EDT [facility] Creatinine 0.89 0.55 - 1.02 mg/dL 12/20/2024 6:53 PM EDT [facility] BUN/Creatinine 21(H) 8 - 20 12/20/2024 6:53 PM EDT [facility] Albumin 3.5 3.4 - 5.0 g/dL 12/20/2024 6:53 PM EDT [facility] Alkaline Phosphatase 83 27 - 136 U/L 12/20/2024 6:53 PM EDT [facility] ALT 30 12 - 78 U/L 12/20/2024 6:53 PM EDT [facility] AST 27 5 - 37 U/L 12/20/2024 6:53 PM EDT [facility] Total Bilirubin 0.4 0.2 - 1.3 mg/dL 12/20/2024 6:53 PM EDT [facility] Protein, Total 7.0 6.4 - 8.2 gm/dL 12/20/2024 6:53 PM EDT [facility] Anion Gap 11 9 - 20 12/20/2024 6:53 PM EDT [facility] A/G Ratio 1.0(L) 1.1 - 2.5 12/20/2024 6:53 PM EDT [facility] Globulin 3.5 1.5 - 4.5 g/dL 12/20/2024 6:53 PM EDT [facility] Osmolality Calc 283.4 mOsm/kg 6:53 PM EDT [facility] eGFR (mL/min/1.73m2) >60 >=60 mL/min/1.7 3m2 12/20/2024 6:53 PM EDT [facility] Comment:ESTIMATED GFR IS NOT ACCURATE CREATININE CLEARANCE IN PREDICTING GLOMERULAR FILTRATION RATE. ESTIMATED GFR IS NOT APPLICABLE FOR DIALYSIS PATIENTS. Blood Venipuncture / Unknown 12/20/2024 2:06 PM EDT 12/20/2024 2:06 PM EDT us Shahida Orellana MD LAB BLOOD ORDERABLES Final Resu lt [facility] [address] [facility] [place] [address], [facility] [phone] from Last 3 Months Insurance [place] [id number] [employer] MEDICARE ADVANTAGE Care Teams Bead Builder Relationship Specialty Start Date End Date Gary Roberts MD [address] [place] [phone] PCP - General Family Medicine 11/16/22
--- OUTSIDE RECORDS SUMMARY | 2025-03-13 12:13 | XMS_ITS | Encounter Summary ---
Author Organization [facility] Address [address] [place] [address] Care Team Providers Care Business Area Manager Name Role Phone Gary Roberts MD Primary Care Provider +1- [phone] Reason for Visit * Reason Onset Date Comments Med Refill 03/12/2025 Encounter Details Date Type Department Care Team (Late st Contact Info) Description 03/12/2025 Refill [facility] [address], [address] [place] [address] Eric Barrientos MD [address] [place] [address] Age-related osteoporosis without current pathological fracture Social History Tobacco Use Types Packs/Day [...] drink first t figueroa in the morning (EYE-DIRECTOR OF LEADERSHIP DEVELOPMENT) to steady your nerves or to get [...] Telephone Encounter - Sheyla Kaye LPN - 03/13/2025 9:30 AM EDT Medication calcitriol 0.25 mcg capsule once daily refilled per protocol. #[facility] Follow up scheduled 03/28/25. documented in this encounter Plan of Treatment Upcoming Encounters Date Type Department Care Team (Late st Contact Info) Description 03/28/2025 11:00 AM EDT Pharmacist Visit [facility] [address] [facility], [address] [place] [address] Chapo Santoro, PharmD [address] [place] [address] 03/29/2025 10:40 AM EDT Office Visit [facility] Nephrology, Bone & Mineral Metabolism [address], [address] [place] [address] Edinson Reyes MD [address] [place] [phone] documented as of this encounter Visit Diagnoses Diagnosis Age-related osteoporosis without current pathological fracture documented in this encounter Additional Health Concerns Assessment Noted Time PHQ-9 Depression Total Score: 0 11/02/19 25 1:34 PM EDT A fall risk assessment has been complete d for the patient 02/26/2025 12:58 PM EDT A Body Mass Index follow-up plan has been documented for the patient 02/26/2025 3:03 PM EDT documented as of this encounter Care Teams Business Area Manager Relationship Specialty Start Date End Date Gary Roberts MD [address] [place] [id number] PCP - General 10/18/20 documented as of this encounter
--- OUTSIDE RECORDS SUMMARY | 2025-03-13 12:13 | XMS_ITS | Clinical Summary ---
[facility] Address [address] [place] [address] Care Team Providers Care Painter And Decorator Apprentice Name Role Phone Gary Roberts MD Primary [...] (ZYLOPRIM) 300 MG tablet 7 Active ZENPEP 60587-81478 units capsule delayed-release particles TAKE 1 CAPSULE [...] Take 1 packet by mouth Daily. Active [place]-3 Fatty Acids (fish oil) 1000 MG capsule [...] Date Moderate obesity 01/30/2016 11/17/2016 Rectocele 11/17/2016 Family History Medical History Relation Name Comments [...] Description 03/19/2025 2:10 PM EDT Office Visit [facility] [address] [address] Martha Hutchinson MD [address] [address] Health Maintenance Due Date Last Done Comments [...] COLONOSCOPY 12/21/2022 12/21/2012 COLORECTAL CANCER SCREENING 12/21/2022 INFLUENZA VACCINE 01/05/2025 04/03/2021, , 02/23/2020, Additional history exists COVID-19 Vaccine (2024-2 6 season) 2025 03/11/2022, 03/12/2021, 07/22/2020, Additional history exists DXA SCAN 08/25/2026 08/25/2024, [...] fall-prevention measurements. The National Osteoporosis Foundation recommends (http://www.nof.org/hcp/practice/ioociods-boi-xgzmssth-guidelines/clinic ans-guide) that FDA-approved medical therapies be considered [...] the left hip with 95% confidence is 0.463048 gm/cm2 at the hip and 0.577275 g/cm2 at the lumbar spine. This report [...] fall-prevention measurements. The National Osteoporosis Foundation recommends (http://www.nof.org/hcp/practice/wnptigms-xns-voglzwxn-guidelines/clinic ans-guide) that FDA-approved medical therapies be considered [...] the left hip with 95% confidence is 0.481548 gm/cm2 at the hip and 0.182966 g/cm2 at the lumbar spine. This report was finalized on 11/24/2018 12:[address] Jose Latif. Jacky Quezada MD IMG DXA ORDERABLES Final Result * (ABNORMAL) Hemoglobin A1c (06/26/2014 10:55 AM EST) Hemoglobin A1C 6.5(H) 4.00 - 6.00 % [facility] Comment: DF by IF @ 06/26/2014 11:44 The [place] [employer] recommends maintenance of Hemoglobin A1C at 7.0% or lower. Goals for Hemoglobin A1C reduction may need to be modified if hypoglycemia is a problem. Mean Bld Glu Estim. 135 mg/dL [facility] Blood specimen (specimen) 06/26/2014 10:55 AM EST Narrative [facility] [employer] [facility] - 06/26/2014 11:44 AM EST Specimen Type: Blood Curt Gpison MD LAB BLOOD ORDERABLES Final Resu lt [facility] [address] [place] [address], from Last 3 Months or Most Recently Relevant to Health Maintenance Insurance [facility] Medicare [employer] PPO Care Teams Painter And Decorator Apprentice Relationship Specialty Start Date End Date Gary Roberts MD [address] [facility] [address] [facility] [address] [place] [address] PCP - General 11/11/15
--- OUTSIDE RECORDS SUMMARY | 2025-03-13 12:13 | XMS_ITS | Clinical Summary ---
Author Organization [facility] Address [address] [place] [address] Care Team Providers Care Tinning Machine Set Up Operator Name Role Phone Gary Roberts MD Primary Care Provider +1- [phone] Allergies Active Allergy Reactions Criticality Noted Date [...] * request cloth tape only* Medications pancrelipase, Brr-Lzia-Bryb, (Zenpep) 53533-85199 units capsule delayed-release particles capsule 3 (three) [...] tablet (10 mg) by mouth daily. Active Calcium-Magnesiu m-Vitamin D (CALCIUM 1200+D3 PO) Take 1 tablet [...] olmesartan (BENIcar) 20 MG tablet 5 Active omega-3 (Fish Oil) 1200 MG capsule 1 (one) time each day at the same time. Active olopatadine (Patanol) 0.1 % ophthalmic solution every 12 (twelve) hours. Active aspirin 81 MG EC tablet Take 1 tablet by mouth Daily. Active omeprazole (PriLOSEC) [address] capsule Take 1 capsule by mouth daily. 5 Active OLOPATADINE HCL OP 4 Active doxycycline (Vibramycin) 100 MG capsule TAKE ONE CAPSULE BY MOUTH TWICE DAILY -- FINISH ALL MEDICINE -- 5 Active calcium citrate 600 mg and vitamin D3 (Citrical & Minerals + Vit D) 600-200 MG-UNIT tablet 1 (one) time each day at the same time. Active calcitriol (Rocaltrol) 0.25 MCG capsuleIndicatio ns:Age-related osteoporosis without current pathological fracture Take 1 capsule by mouth daily. 30 capsule 5 09/10/19 26 Active calcitriol (Rocaltrol) 0.25 MCG capsuleIndicatio ns:Age-related osteoporosis without current pathological fracture Take 1 capsule by mouth daily. 30 capsule 5 5 03/12/20 25 Discontin ued([facility]) Hospital, Clinic, or Other Facility Administered Medication Ordered Dose Route Frequency Start Date End Date Status bupivacaine (Marcaine) 0.5 % injection 20 mgIndications:Hip pain, bilateral 20 mg IJ Once PRN Procedure 02/26/2025 02/26/2025 Ended bupivacaine (Marcaine) 0.5 % injection 20 mgIndications:Hip pain, bilateral 20 mg IJ Once PRN Procedure 02/26/2025 02/26/2025 Ended triamcinolone acetonide (Kenalog-40) injection 80 mgIndications:Hip pain, bilateral 80 mg IX Once PRN Procedure 02/26/2025 02/26/2025 Ended triamcinolone acetonide (Kenalog-40) injection 80 mgIndications:Hip pain, bilateral 80 mg IX Once PRN Procedure 02/26/2025 02/26/2025 Ended lidocaine (Xylocaine) 1 % injection 40 mgIndications:Hip pain, bilateral 40 mg IX Once PRN Procedure 02/26/2025 02/26/2025 Ended lidocaine (Xylocaine) 1 % injection 40 mgIndications:Hip pain, bilateral 40 mg IX Once PRN Procedure 02/26/2025 02/26/2025 Ended Active Problems Problem Noted Date Diagnosed Date Stage 3a chronic kidney disease 08/25/2024 Fusion of spine of thoracolumbar region 08/09/19 Exocrine pancreatic insufficiency 05/04/2023 Fusion of lumbosacral spine 07/22/2022 Age-related osteoporosis wit hout current pathological fracture 04/23/2022 Seizures 04/15/2022 GERD (gastroesophageal reflux disease) Spondylolisthesis, thoracic region 01/29/2022 Neurogenic claudication 01/29/2022 Overview (01/29/2022): Added automatically from request for surgery [id number] Pseudarthrosis after fusion or arthrodesis 01/29 S/P total hip arthroplasty 04/27/2018 Impairment of balance 01/04/2018 Foot drop, left foot 11/19/2017 Hiatal hernia 11/17/2016 Lumbar stenosis with neurogenic claudication History of bilateral knee replacement 01/30/2016 Borderline type 2 diabetes mellitus 01/30/2016 CHER on CPAP Overview (11/28/2022): uses cpap. Resolved Problems Problem Noted Date Diagnosed Date Resolved Date Physical deconditioning 01/30/201602/06 Encounters Date Type Department Care Team Description 03/12/2025 [facility] [address], [address] [place] [address] Eric Barrientos MD Age-related osteoporosis without current pathological fracture 02/26/2025 12:50 PM EDT Office Visit Medical Office Building [facility] [address], [address] [place] [address] Jaiden Fuentes MD Hip pain, bilateral (Primary Dx) 02/26/2025 12:29 PM EDT - 02/26/2025 11:59 PM EDT Hospital Encounter Medical Office Building Radiology [address] [place] [address] Left knee pain, unspecified chronicity; Hip pain, bilateral; Pain Discharge Disposition: Home or Self Care 02/26/2025 Travel from Last 3 Months Immunizations Immunization Administration Dates Next Due Hep A, Adult 09/24/2018,03/23/2018 Influenza, Unspecified 03/07/2017 Influenza, high-dose, quadrivalent 04/03/2021 Influenza, injectable, quadrivalent 03/11/2020 Pneumococcal 20-rj Conj Vaccine 04/20/2023 Pneumococcal Polysaccharide PPV23 03/12/2017 Pneumococcal, Unspecified 03/07/2017 Rsvpref, Recombinant, Protein Subunit, Adjuvent 05/06/2023 Varicella 05/24/2007,03/29/2007 Family History Medical History Relation Name Comments Arthritis Brother Marco Mendoza Cancer Brother Marco Reynolds Mendoza Arthritis Father Broderick Mendoza Heart disease Father Broderick Mendoza Arthritis Father's Brother 1 Luis Mendoza Arthritis Father's Brother 2 Gold Samy Mendoza Arthritis Father's Sister Yessi Reji Molony Kidney disease Father's Sister Yessi Reji Molony Osteoporosis Father's Sister Yessi Mendoza Molony Rheumatologic disease Father's Sister Yessi Mendoza M olony Diabetes Maternal Grandmother Joy Ismael Mccarthy Rheumatologic disease Maternal Grandmother Joy Mohr M oss Stroke Maternal Grandmother Joylashawn Mccarthy Cancer Mother Maria Teresa Gonzalez Fabio Mendoza Diabetes Mother Maria Teresa Ellismaricruz Mccarthy Mendoza Obesity Mother Maria Teresa Gonzalez Fabio Mendoza Stroke Mother Maria Teresa Gonzalez Fabio Mendoza Vision loss Mother Maria Teresa Gonzalez Fabio Mendoza Arthritis Other 1 Joy Ismael Mccarthy Obesity Other 1 Joy Mccarthy Diabetes Other 2 Hank Fabio Obesity Other 2 Hank Mccarthy Hypertension Other 3 Sarabjit Liang Obesity Other 3 Sarabjit Liang Other cancer Other 4 Heart Problem Other 5 Stroke Paternal Grandfather Hira Moncada Mendoza Arthritis Paternal Grandmother Deysi Perla n Rheumatologic disease Paternal Grandmother Deysi Mendoza Arthritis Sister Zena Shaw Anesthesia problems Neg Hx Malig Hyperthermia Neg Hx Relation Name Status Comments Brother Marco Mendoza Father Broderick Mendoza Alive Father's Brother 1 Luis Natarajanburn Alive Father's Brother 2 Gold Pablo Mendoza Alive Father's Sister Yessi Loveony Maternal Grandmother Joy Mccarthy Mother Maria Teresa Mendoza Other 1 Joy Mccarthy Other 2 Hank Mccarthy Other 3 Sarabjit Liang Other 4 Other 5 Paternal Grandfather Hira [...] drink first t figueroa in the morning (EYE-AIR TRAFFIC CONTROL SPECIALIST) to steady your nerves or to [...] Pulse 77 02/26/2025 12:58 PM EDT Temperature 36.7 C (98.1 F) 09/14/2024 10:44 AM EDT Respiratory Rate 18 02/26/2025 12:58 PM EDT Oxygen Saturation 93% 02/26/2025 12:58 PM EDT Inhaled Oxygen Concentration - - Weight 87 kg (191 lb 12.8 oz) 02/26/2025 12:58 P M EDT Height 165.1 cm (5' 5 ) 02/26/2025 12:58 PM EDT Body Mass Index 31.92 02/26/2025 12:58 PM EDT Plan of Treatment Upcoming Encounters Date Type Department Care Team (Late st Contact Info) Description 03/28/2025 11:00 AM EDT Pharmacist Visit [facility] [address], [address] [place] [address] Chapo Santoro, PharmD [address] [place] [address] 03/29/2025 10:40 AM EDT Office Visit [facility] Nephrology, Bone & Mineral Metabolism [address], [address] [place] [address] Edinson Reyes MD [address] [place] [address] Health Maintenance Due Date Last Done Comments [facility]-Hepatitis C Screening 1950 [facility]Medicare Annual Wellness (AWV) 1950 [facility]-/Child/Adol SDOH Screenings 1950 [facility]- SDOH Screenings 1968 [facility]-Adult SDOH Screenings 1968 CT Colonography 12/24/1995 Colonoscopy 12/24/1995 FIT-DNA 12/24/1995 FIT 12/24/1995 FOBT 12/24/1995 Sigmoidoscopy 12/24/1995 [facility]-Colorectal Cancer Screening 12/24/1995 [facility]-Zoster Vaccines (1 of 2) 2000 05/24/2007, 03/29/2007 KNG-EDSEG-95 Vaccine ( season) 2025 03/11/2022, 03/12/2021, 07/22/2020, Additional history exists [facility]-Influenza [...] or Completed 05/06/2023 [facility]-Obesity Intervention Completed 025, 11/01/2024, 09/14/2024, Additional history exists HPV Vaccines Aged Out [...] this topic Medical Devices Implanted Type Area Plywood Layup Line Core Layer Device Identifier Shelf Expiration Date Model / Serial / Lot Chip Bone 40cc - [id number] - [id number] Implanted:Qty: 1 on 07/22/2022 by Pratik Carver MD at [facility] N/A: Spine Lumbar [facility]-[id number] 02/23/2027 PCAN1/2 / [id number] / [id number] Screw 5.5mm Viper Ti Fen Crtcl Polyax 6mm X 30mm - [id number] Implanted:Qty: 8 on 07/22/2022 by Pratik Carver MD at [facility] N/A: Spine Lumbar [employer] [id number] 07/22/2023 [id number] / / Chip Bone 40cc - [id number] - [id number] Implanted:Qty: 1 on 07/22/2022 by Pratik Carver MD at [facility] N/A: Spine Lumbar [facility]-[id number] 04/21/2027 PCAN1/2 / [id number] / [id number] Graft Vivigen 5cc - [id number] - [id number] Implanted:Qty: 1 on 07/22/2022 by Pratik Carver MD at [facility] N/A: Spine Lumbar [facility]-[id number] 07/01/2023 BL-1500-002 / [id number] / [id number] Screw 5.5mm Viper Ti Fen Crtcl Polyax 5mm X 40mm - [id number] Implanted:Qty: 2 on 07/22/2022 by Pratik Carver MD at [facility] N/A: Spine Lumbar [employer]-[id number] 07/22/2023 [id number] / / Screw Exp Viper Lg Tit 9x100 - [id number] Implanted:Qty: 1 on 07/22/2022 by Pratik Carver MD at [facility] N/A: Spine Lumbar [employer] LP-[id number] 07/22/2023 [id number] / / Screw 5.5mm Viper Ti Polyax Fullthrd 8mm X 100mm - [id number] Implanted:Qty: 1 on 07/22/2022 by Pratik Carver MD at [facility] N/A: Spine Lumbar [employer] LP-[id number] 07/22/2023 [id number] / / Single Inner Setscrew - [id number] Implanted:Qty: 23 on 07/22/2022 by Pratik Carver MD at [facility] N/A: Spine Lumbar [employer] LP-[id number] 07/22/2023 [id number] / / Ap Expedium Ti Precontoured Small 5.5mm - [id number] Implanted:Qty: 2 on 07/22/2022 by Pratik Carver MD at [facility] N/A: Spine Lumbar [employer] LP-[id number] 07/22/2023 [id number] / / Plate Sfx 5.5 Ti Med Size A5 - [id number] Implanted:Qty: 1 on 07/22/2022 by Pratik Carver MD at [facility] N/A: Spine Lumbar [employer] LP-[id number] 07/22/2023 [id number] / / Procedures Procedure Name Priority Date/Time Associated Diagnosis Comments XR KNEE RIGHT 1 OR 2 VIEWS Routine 02/26/2025 12:51 PM EDT Pain XR HIPS BILATERAL 2 VIEWS Routine 02/26/2025 12:51 PM EDT Hip pain, bilateral XR KNEE LEFT 1 OR 2 VIEWS Routine 02/26/2025 12:51 PM EDT Left knee pain, unspecified chronicity CA ARTHROCENTESIS ASPIR&/INJ MAJOR JT/BURSA W/O US Routine 02/26/2025 12:50 PM EDT Hip pain, bilateral DEXA BONE DENSITY Routine 08/25/2024 11: 50 AM EDT Age-related osteoporosis without current pathological fracture HEMOGLOBIN A1C Routine 04/09/2022 11:21 AM EDT Spondylolisthesis, thoracic region Neurogenic claudication (CMS/HCC) Pseudarthrosis after fusion or arthrodesis from Last 3 Months or Most Recently Relevant to Health Maintenance Results * New Patient: XR Hip (AP [...] no evidence of hardware loosening or failure. Omey-yo-rqxqtfkr right hip osteoarthrosis. CRITICAL RESULT: No. COMMUNICATION: [...] joints posterior fusion hardware is partially visualized. Cbum-up-mlwtlslj osteoarthrosis of the right hip. Femoral head [...] sacroiliac joints posterior fusionhardware is partially visualized. Hpkv-ij-uxfaaefs osteoarthrosis of theright hip. Femoral head is well-seated within the acetabulum. No acutefracture or dislocation.. IMPRESSION: Redemonstration of bilateral total knee arthroplasties in unchangedalignment with no hardware complications. Left total hip arthroplasty in unchanged alignment with no evidence ofhardware loosening or failure. Hrla-lb-lltsbtoc right hip osteoarthrosis. CRITICAL RESULT: No. COMMUNICATION: [...] PROCEDURES Final Resul t * XR Knee Right 1 or 2 Views (02/26/2025 12:51 PM EDT) Anatomical Region Laterality Modality Lower Extremities, Knee Right Digital Radiography Impressions 02/26/2025 3:04 PM EDT Redemonstration of bilateral total knee arthroplasties in unchanged alignment with no hardware complications. Left total hip arthroplasty in unchanged alignment with no evidence of hardware loosening or failure. Bnip-ji-xgyrvwag right hip osteoarthrosis. CRITICAL RESULT: No. COMMUNICATION: [...] joints posterior fusion hardware is partially visualized. Izsc-dd-sdtpdcww osteoarthrosis of the right hip. Femoral head [...] sacroiliac joints posterior fusionhardware is partially visualized. Mqku-ex-zwceknqi osteoarthrosis of theright hip. Femoral head is well-seated within the acetabulum. No acutefracture or dislocation.. IMPRESSION: Redemonstration of bilateral total knee arthroplasties in unchangedalignment with no hardware complications. Left total hip arthroplasty in unchanged alignment with no evidence ofhardware loosening or failure. Rkmo-az-bjngayak right hip osteoarthrosis. CRITICAL RESULT: No. COMMUNICATION: Per this written report. By electronically signing this report, I, the attending physician, attjuanat I have personally reviewed the images/data for [...] no evidence of hardware loosening or failure. Eabo-ff-hcrjdpxq right hip osteoarthrosis. CRITICAL RESULT: No. COMMUNICATION: [...] joints posterior fusion hardware is partially visualized. Egvy-gf-vnsdbkxs osteoarthrosis of the right hip. Femoral head [...] sacroiliac joints posterior fusionhardware is partially visualized. Ekir-rh-bpnjkczt osteoarthrosis of theright hip. Femoral head is well-seated within the acetabulum. No acutefracture or dislocation.. IMPRESSION: Redemonstration of bilateral total knee arthroplasties in unchangedalignment with no hardware complications. Left total hip arthroplasty in unchanged alignment with no evidence ofhardware loosening or failure. Uikx-el-usnapipt right hip osteoarthrosis. CRITICAL RESULT: No. COMMUNICATION: [...] IMG XR PROCEDURES Final Resul t * CA ARTHROCENTESIS ASPIR&/INJ MAJOR JT/BURSA W/O US (02/26/2025 [...] to verify the correct patient, procedure, equipment, child support investigator and site/side marked as required. Patient was prepped and draped in the usual sterile fashion. us Jaiden Fuentes MD IN CLINIC/BEDSIDE ORDERABLES Final Result * Dexa Bone Density (08/25/2024 11:50 AM EDT) Anatomical Region Laterality Modality L-spine Radiographic Deepali ging Narrative 09/06/2024 8:02 AM EDT [facility] - [facility] [address] [place] [address] DXA Bone Densitometry Report: [08/25/2024] BMD test performed using the [employer] DXA System (analysis version: 14.10) manufactured by [employer]. REFERRING PROVIDER: Dr. Eric Barrientos MD CLINICAL INFORMATION: osteoporosis PATIENT NAME: Ismael Carter PATIENT AGE: 73 y.o. LEGAL SEX: female [...] comparison and calculation of change in BMD). us Eric Barrientos MD IMG DXA PROCEDURES Final Resul t * (ABNORMAL) Hemoglobin A1c (04/09/2022 11:21 AM EDT) Hemoglobin A1c 6.4(H) <5.7 % 04/10/2022 8:39 AM EDT [facility] Blood Venous blood specimen / Unknown [...] Adults <6.0% Children and Adolescents <7.5% Source: [place] [employer]. Standards of medical care in diabetes,2017. Diabetes Care.2017:40 (suppl 1):S1-S135. HbA1c assay performed by an ion-exchange chromatography method that is certified traceable to the DCCT. us Pratik Carver MD LAB BLOOD ORDERABLES Final Res ult [facility] [address] [place] [address] from Last 3 Months or Most Recently Relevant to Health Maintenance [facility] [id number] [facility] MEDIC[facility] Advance Directives * Full Code (Latest Code Status on File) Date Activated Date Inactivated Comments 07/22/2022 1:01 PM 07/25/2022 4:04 PM Question Answer Comments Patient has decision-making capacity? Yes Care Teams Tinning Machine Set Up Operator Relationship Specialty Start Date End Date Gary Roberts MD [address] [place] [address] PCP - General 10/18/20
--- OUTSIDE RECORDS SUMMARY | 2025-03-13 12:14 | XMS_ITS | Encounter Summary ---
Author Organization Healthcare Address [address] [place] [address] Care Team Providers Care Kinesiotherapist Name Role Phone Gary Roberts MD Primary Care Provider +1- [phone] Encounter Details Date Type Department Care Team (Latest Contact Info) Description 02/26/2025 Travel Social History Tobacco Use Types Packs/Day [...] drink first t figueroa in the morning (EYE-RAGS LABORER) to steady your nerves or to get rid of a hangover? 0 07/23/2022 CAGE Questionnaire Score 0 023 Comments No Sex and Gender Information Value Date Recorded Sex Assigned at Female 05/15/2021 3:09 PM EST Legal Sex Female 8:10 PM EDT Gender Identity Female 05/15/2021 3:09 PM EST Sexual Orientation Straight 05/15/2021 3: 09 PM EST documented as of this encounter Plan of Treatment Upcoming Encounters Date Type Department Care Team ([facility] st Contact Info) Description 03/28/2025 11:00 AM EDT Pharmacist Visit [facility] Min[facility] [address] [facility], [address] [place] [address] Chapo Santoro, PharmD [address] [facility] [address] [place] [address] 03/29/2025 10:40 AM EDT Office Visit [facility] Nephrology, Bone & Mineral Metabolism [address] [facility], [address] [place] [address] Edinson Reyes MD [address] [place] [address] documented as of this encounter [...] documented as of this encounter Care Teams Kinesiotherapist Relationship Specialty Start Date End Date Gary Roberts MD [address] [place] [address] PCP - General 10/18/20 documented as of this encounter
--- OUTSIDE RECORDS SUMMARY | 2025-03-13 12:15 | XMS_ITS | Patient Health Record ---
[facility] [address] [place] [id number] Care Team Providers [employer] Coordinator Name Role Phone Samy Roberts Primary Care Provider Guero Estrada Unavailable [phone] Jared Oconnella Unavailable [phone] Allergies Allergen (clinical drug ingredient) Drug/Non Drug [...] - 38 plat 236 100 - 400 Glucose (In-House) Reviewed date:03/06/2025 04:11:20 PM Interpretation: [...] - 38 platlet 312 100 - 400 H-CBC Reviewed date:12/31/2024 10:26:15 PM Interpretation:hgb 11, mch 26.1, mchc 29.7 Performing Lab: Notes/Report: WBC 10.1 4.8-10.8 K/mm3 [...] 0.1 0-0.2 K/mm3 NRBC# 0 IG# 0.04 H-Lipid Panel Reviewed date:12/11/2024 12:48:16 PM Interpretation:see cmp Performing Lab: Notes/Report: see cmp H-CMP Reviewed date:12/13/2024 02:48:28 PM Interpretation: Performing Lab: Notes/Report: H-URIC ACID Reviewed date:12/11/2024 12:47:58 PM Interpretation:see cmp Performing Lab: Notes/Report: see cmp H-Iron Reviewed date:12/11/2024 12:47:43 PM Interpretation:see cmp Performing Lab: Notes/Report: see cmp H-Keppra Reviewed date:12/31/2024 10:26:15 PM Interpretation:63.2 Performing Lab: Notes/Report: LEV 63.2 10.0-40.0 ug/mL Performed at: [facility] [address] [id number] [employer] Furn[employer] Operator: Emmett Savage MD, Phone: [phone] CBC Fingerstick (in house) Reviewed date:03/21/2024 12:02:23 [...] - 38 plat 302 100 - 400 Influenza Screen (in house) Reviewed date:01/19/2025 05:02:40 [...] Interpretation:neg Performing Lab: Notes/Report: neg Result: neg H-URIC ACID Reviewed date:03/19/2024 10:37:44 PM Interpretation:Normal Performing Lab: Notes/Report: URIC 4.6 2.5-6.2 mg/dl H-Iron Reviewed date:03/19/2024 10:37:44 PM Interpretation:Normal Performing Lab: Notes/Report: FE 69 37-170 ug/dL H-CBC Reviewed date:03/19/2024 10:37:44 PM Interpretation:rbc 3.9, [...] Level > 8% Poorly Controlled Diabetic Level Urinalysis - Inhouse Reviewed date:04/13/2024 04:56:16 PM Interpretation: Performing Lab: Notes/Report: Color/Clarity yellow/clear Leuk trace Nitrite neg Urobili 3.2 Protein neg pH 5.5 Blood neg Sp. Gr. <=1.005 Ketone neg Bili neg Gluc neg TEN-UTI panel Reviewed date:04/17/2024 12:48:10 PM Interpretation:Abnormal Performing Lab: Notes/Report: Abnormal CT Scan : Sinuses, without c ontrast Reviewed date:05/02/2024 08:21:25 AM Interpretation:unremarkable Performing Lab: Notes/Report: unremarkable CBC Fingerstick (in house) Reviewed date:10/22/2024 11:23:03 [...] - 38 plat 259 100 - 400 CBC Fingerstick (in house) [...] - 400 CBC Fingerstick (in house) Reviewed date:01/25/2025 08:17:31 [...] - 38 plat 286 100 - 400 H-Lipid Panel Reviewed date:12/31/2024 10:26:15 PM Interpretation:LDL 54 Performing Lab: Notes/Report: Patient Fasting? Y TRIG 130 30-150 mg/dl CHOL 164 140-200 mg/dl DLDL 54.52 100-129 mg/dL VLDL 26 0-40 mg/dL HDL 63 40-60 mg/dl CHLHDL 2.6 1-3.5 H-CMP Reviewed date:12/31/2024 10:26:15 PM Interpretation:gluc 103, ast 42 Performing Lab: Notes/Report: NA 138 136-145 mmol/L [...] 1.1-1.8 ALP 73 38-126 U/L H-URIC ACID Reviewed date:12/31/2024 10:26:15 PM Interpretation:Normal Performing Lab: Notes/Report: URIC 4.8 2.5-6.2 mg/dl H-Iron Reviewed date:12/31/2024 10:26:15 PM Interpretation:Normal Performing Lab: Notes/Report: FE 55 37-170 ug/dL Medications Medication SIG (Take, Route, Frequency, Duration) Notes Start Date End Date Status Benzonatate 200 MG 1 capsule as needed Orally Three times a day 03/06/2025 Active CareTouch CPAP & BIPAP Hose as directed 08/18/2021 Active Olmesartan Medoxomil 20 mg take 1 tablet orally once a day; Duration: 90 days Active Gabapentin 100 MG 2 caps orally qid Active Rosuvastatin Calcium 10 mg TAKE ONE TABLET BY MOUTH EVERY DAY; Duration: 90 Active levoFLOXacin 500 MG 1 tablet Orally Once a day; Duration: 10 day(s) 03/06/2025 Active Multiple Vitamin - 1 cap(s) orally once a day; Duration: 30 day(s) Active Allopurinol 300 mg TAKE ONE TABLET BY M OUTH EVERY DAY; Duration: 90 Active Calcium 600 + Minerals 600-200 MG-UNIT 2 tab(s) orally once a day; Duration: 30 day(s) Active Furosemide 20 MG 1 tablet Orally once daily; Duration: 90 days Active Aspirin 81 81 MG 1 tablet Orally Once a day; Duration: 30 day(s) Active Nystatin-Triamcinolone 417301-3.1 UNIT/GM 1 application Externally Twice a day 04/28/2024 Active Prolia 60 MG/ML as directed Subcutan eous every 6 months Active Zenpep 31225-29627 UNIT 1 cap(s) Orally Three times a day Active Olopatadine HCl 0.1 % 1 drop into affect ed eye Ophthalmic Twice a day Active Albuterol Sulfate HFA 108 [...] (65yr and older) IM Intramuscular 04/03/2021 Administered Hepatitis A (adult) IM Intramuscular 09/24/2018 Administer ed Tetanus Tdap-Adacel (over 7yrs) ID Intradermal 04/12/2015 Administered Varivax Unknown 03/29/2007 Administered Varivax Unknown 05/24/2007 Administered xFlu shot-36 months and older IM Intramuscular 03/13/2011 Administered xFluzone Intradermal (18-64yrs)-trivalent ID Intradermal 03/11/2012 Administered xFlu shot-36 months and older IM Intramuscular 03/26/2008 Administered xFlu shot-36 months and older IM Intramuscular 04/21/2006 Administered Prevnar (PCV20) IM Intramuscular 04/20/2023 Administered PNEUMOVAX 23 VACCINE IM Intramuscular 03/12/2017 Administe red PNEUMOVAX 23 VACCINE IM Intramuscular 03/11/2012 Administe red Hepatitis A (adult) Unknown 03/23/2018 Administered Fluzone High Dose (65yr and older) IM Intramuscular 03/07/2024 Administered Fluzone High Dose (65yr and older) IM Intramuscular 04/20/2023 Administered Fluzone High Dose (65yr and older) IM Intramuscular 03/24/2019 Administered Fluzone High Dose (65yr and older) IM Intramuscular 03/03/2018 Administered Fluzone High Dose (65yr and older) IM Intramuscular 03/12/2017 Administered Fluzone High Dose (65yr and older) IM Intramuscular 02/14/2016 Administered COVID 19 Moderna Unknown 03/12/2021 Administered xFluzone (6mos and older)-trivalent IM Intramuscular 03/26/2014 Administered xFlu shot-36 months and older IM 04/07/2010 Administered xFlu shot-36 months and older IM Intramuscular 02/27/2009 Administered xFlu shot-36 months and older IM Intramuscular 03/12/2007 Administered xFlu shot-36 months and older IM Intramuscular 04/24/2005 Administered Varivax Unknown 05/24/2007 Administered Prevnar (PCV13) IM Intramuscular 03/13/2016 Administered Fluzone High Dose (65yr and older) IM Intramuscular 02/23/2020 Administered xFluzone (6mos and older)-trivalent IM Intramuscular 05/19/2013 Administered Problems Problem Type SNOMED Code ICD Code Onset Dates Problem Status W/U Status Risk Notes Problem Leukocytosis (655122090) Leukocytosis (D72.829) Active confirmed Problem Sciatica (22030544) Sciatica (M54.30) Active co nfirmed Problem Hypertension (43014985) HTN (hypertension) (I10) Active confirmed Problem Chronic renal insufficiency (861980738) Chronic renal insufficiency (N18.9) Active confirmed Problem Peripheral venous insufficiency (58809084) Venous insufficiency (I87.2) Active confirmed Problem Seasonal allergy (064836193) Seasonal allergies (J30.2) Active confirmed Problem Chronic sinusitis (40387518) Chronic sinusitis (J32.9) Active confirmed Problem Hyperuricemia (16236467) Hyperuricemia (E79.0) Active confirmed Problem BMI 30+ - obesity (148716629) BMI 32.0-32.9,adult (Z68.32) Active confirmed Problem Obese class I (161834784727697) BMI 33.0-33.9,adult (Z68.33) Active confirmed Problem Seizure disorder (586741084) Seizure disorder (G40.909) Active confirmed Problem Cataract (878080594) Cataract (H26.9) Active confirmed Problem Generalized osteoarthritis (508882943) Generalized osteoarthritis (M15.9) Active confirmed Problem Depressive disorder (50539554) Depressive disorder (F32.9) Active confirmed Problem Gastroesophageal reflux disease without esophagitis (054649012) Gastroesophageal reflux disease without esophagitis (K21.9) Active confirmed Problem Allergic rhinitis (55884417) Allergic rhinitis (J30.9) Active confirmed Problem Lumbosacral spondylosis without myelopathy (99358299) 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 myelopathy or radiculopathy (M47.816) Active confirmed Problem Obstructive sleep apnea syndrome (15871350) CHER (obstructive sleep apnea) (G47.33) Active confirmed Problem Iron deficiency anemia (55157278) Iron deficiency anemia, unspecified iron deficiency anemia type (D50.9) Active confirmed Problem Dyslipidemia (809442235) Dyslipidemia (E78.5) Active confirmed Problem Ulcer of left foot (disorder) (927151014) Foot ulcer, left, with unspecified severity (L97.529) Active confirmed Problem Seasonal allergic rhinitis (764658157) Seasonal allergic rhinitis, unspecified trigger (J30.2) Active confirmed Problem Allergic rhinitis (98649349) Allergic rhinitis, unspecified seasonality, unspecified trigger (J30.9) Active confirmed Problem Allergic rhinitis (45312820) Acute allergic rhinitis (J30.9) Active confirmed Problem Allergic rhinitis (83978131) Allergic rhinitis due to other allergic trigger, unspecified seasonality (J30.89) Active confirmed Vital Signs Heart Rate 90 /min 03/06/2025 Blood pressure diastolic 60 mm Hg 03/06/2025 Height 64.50 in 03/06/2025 Blood pressure systolic 100 mm Hg 03/06/2025 Weight 191.4 lbs 03/06/2025 BMI 32.34 kg/m2 03/06/2025 Encounters Encounter Location Date Provider Diagnosis [facility] [address] [facility] [address] [facility] [address] [place] [id number] 03/16/2024 R Broderick Elisefleet Seasonal allergies J 30.2 [facility] [address] [facility] [address] [facility] [address] [place] [id number] 03/21/2024 R Broderick Armando Acute sinusitis J01. 90 [facility] [address] [facility] [address] [facility] [address] [place] [id number] 03/24/2024 R Broderick Armando Allergic rhinitis, unspecified seasonality, unspecified trigger J30.9 [facility] [address] [facility] [address] [facility] [address] [place] [id number] 03/30/2024 R Broderick Armando Acute sinusitis J01. 90 and Allergic rhinitis J30.9 [facility] [address] [place], [place] [id number] 04/07/2024 R Broderick Armando Allergic rhinitis J3 0.9 [facility] [address] [place], [place] [id number] 04/13/2024 R Broderick Armando Chronic sinusitis J3 2.9 ; Foot pain M79.673 ; Dysuria R30.0 and Allergic rhinitis, unspecified seasonality, unspecified trigger J30.9 [facility] [address] [place], [place] [id number] 04/21/2024 R Broderick Armando Allergic rhinitis J3 0.9 [facility] [address] [place] [id number] 04/28/2024 Gretchen Crowdy Yeast infection B37. 9 [facility] [address] [place] [id number] 05/05/2024 R Broderick Armando Seasonal allergies J 30.2 [facility] [address] [place] [id number] 05/12/2024 R Broderick Armando [facility] [address] [place] [id number] 05/18/2024 R Broderick Armando Seasonal allergies J 30.2 [facility] [address] [place] [id number] 05/25/2024 R Broderick Armando Seasonal allergies J 30.2 and Leg edema R60.0 [facility] [address] [place] [id number] 06/01/2024 R Broderick Armando Seasonal allergies J 30.2 [facility] [address] [place] [id number] 06/09/2024 R Broderick Armando Allergic rhinitis J3 0.9 [facility] [address] [place] [id number] 06/15/2024 R Broderick Armando Allergic rhinitis, unspecified seasonality, unspecified trigger J30.9 [facility] [address] [place] [id number] 06/21/2024 R Broderick Armando [facility] [address] [place] [id number] 06/29/2024 R Broderick Armando Allergic rhinitis, unspecified seasonality, unspecified trigger J30.9 [facility] [address] [place] [id number] 08/10/2024 R Broderick Armando Allergic rhinitis, unspecified seasonality, unspecified trigger J30.9 [facility] [address] [place] [id number] 08/17/2024 R Broderick Armando Allergic rhinitis J3 0.9 [facility] [address] [place] [id number] 08/24/2024 R Broderick Armando Allergic rhinitis J3 0.9 [facility] [address] [place] [id number] 09/07/2024 R Broderick Armando Allergic rhinitis J3 0.9 [facility] [address] [place] [id number] 09/13/2024 R Broderick Armando Allergic rhinitis J3 0.9 and Acute allergic rhinitis J30.9 [facility] [address] [place] [id number] 09/21/2024 R Broderick Armando Seasonal allergies J 30.2 [facility] [address] [place] [id number] 09/28/2024 R Broderick Armando Allergic rhinitis J3 0.9 [facility] [address] [place] [id number] 10/03/2024 R Broderick Armando Acute sinusitis J01. 90 [facility] [address] [place] [id number] 10/05/2024 R Broderick Armando [facility] [address] [place] [id number] 10/06/2024 R Broderick Armando Allergic rhinitis J3 0.9 [facility] [address] [place] [id number] 10/12/2024 R Broderick Armando Allergic rhinitis J3 0.9 [facility] [address] [place] [id number] 10/20/2024 Gretchen Crowdy Acute URI J06.9 and HTN (hypertension) I10 [facility] [address] [place] [id number] 10/31/2024 R Broderick Armando Allergic rhinitis J3 0.9 [facility] [address] [facility] [address] [place] [id number] 11/17/2024 R Broderick Armando Allergic rhinitis du e to other allergic trigger, unspecified seasonality J30.89 [facility] [address] [place] [id number] 11/23/2024 R Broderick Armando [facility] [address] [place], [place] [id number] 12/12/2024 R Broderick Armando Adult general medica l examination Z00.00 ; HTN (hypertension) I10 ; Dyslipidemia E78.5 ; Hyperuricemia E79.0 ; Iron deficiency anemia, unspecified iron deficiency anemia type D50.9 ; Seizure disorder G40.909 ; Gastroesophageal reflux disease without esophagitis K21.9 ; Seasonal allergies J30.2 ; CHER (obstructive sleep apnea) G47.33 and BMI 32.0-32.9,adult Z68.32 [facility] [address] [facility] [address] [place] [id number] 12/14/2024 R Broderick Armando Muscle strain of rig ht upper back, initial encounter S29.012A and Seasonal allergic rhinitis, unspecified trigger J30.2 [facility] [address] [facility] [address] [place] [id number] 12/21/2024 R Broderick Armando Seasonal allergic rhinitis, unspecified trigger J30.2 [facility] [address] [place] [id number] 12/28/2024 R Broderick Armando Allergic rhinitis, unspecified seasonality, unspecified trigger J30.9 [facility] [address] [place] [id number] 01/05/2025 Guero [place] Allergic rhinitis, unspecified seasonality, unspecified trigger J30.9 [facility] [address] [place] [id number] 01/11/2025 R Broderick Armando Allergic rhinitis, unspecified seasonality, unspecified trigger J30.9 [facility] [address] [place] [id number] 01/19/2025 Gretchen Crowdy Acute URI J06.9 [facility] [address] [place] [id number] 01/23/2025 R Broderick Armando Acute sinusitis J01. 90 [facility] [address] [place] [id number] 02/01/2025 R Broderick Armando Sciatica M54.30 and Allergic rhinitis, unspecified J30.9 [facility] [address] [place] [id number] 02/08/2025 R Broderick Armando Allergic rhinitis J3 0.9 [facility] [address] [place] [id number] 02/20/2025 R Broderick Armando Allergic rhinitis J3 0.9 and Acute sinusitis J01.90 [facility] [address] [place] [id number] 03/02/2025 R Broderick Armando Allergic rhinitis, unspecified seasonality, unspecified trigger J30.9 [facility] [address] [place] [id number] 03/06/2025 R Broderick Armando Leukocytosis D72.829 ; Cough R05.9 ; Hypotension I95.9 and Hyperglycemia R73.9 [facility] [address] [place] [id number] 03/19/2024 R Broderick Armando [facility] [address] [place] [id number] 04/10/2024 R Broderick Armando Left foot pain M79.6 72 [facility] [address] [place] [id number] 04/17/2024 R Broderick Armando [facility] [address] [place] [id number] 05/02/2024 R Broderick Armando [facility] [address] [place] [id number] 06/21/2024 R Broderick Armando [facility] [address] [place] [id number] 08/09/2024 R Broderick Armando [facility] [address] [place] [id number] 10/05/2024 R Broderick Armando Leg edema R60.0 [facility] [address] [place] [id number] 11/15/2024 R Broderick Armando [facility] [address] [place] [id number] 11/30/2024 R Broderick Armando HTN (hypertension) I 10 ; Dyslipidemia E78.5 ; Hyperuricemia E79.0 ; Iron deficiency anemia, unspecified iron deficiency anemia type D50.9 and Seizure disorder G40.909 [facility] [address] [place] [id number] 12/21/2024 R Broderick Armando CHER (obstructive sle ep apnea) G47.33 [facility] [address] [place] [id number] 12/21/2024 R Broderick Armando [facility] [address] [place] [id number] 01/02/2025 Samy Roberts [facility] [facility] [address] [place], [place] [id number] 02/20/2025 R Broderick Roberts [facility] [address] [facility] [address] [facility] [address] [place], [place] [id number] 03/02/2025 R Broderick Roberts Assessments Encounter Date Diagnosis (ICD Code) [...] J30.9) 09/13/2024 Allergic rhinitis (ICD-10 - J30.9) 09/21/2024 Seasonal allergies (ICD-10 - J30.2) 09/28/2024 Allergic rhinitis (ICD-10 - J30.9) 10/03/2024 Acute sinusitis (ICD-10 - J01.90) 10/05/2024 Leg edema (ICD-10 - R60.0) 10/06/2024 Allergic rhinitis (ICD-10 - J30.9) 10/12/2024 Allergic rhinitis (ICD-10 - J30.9) 04/13/2024 Chronic sinusitis (ICD-10 - J32.9) 04/13/2024 Foot pain (ICD-10 - M79.673) 04/21/2024 Allergic rhinitis (ICD-10 - J30.9) 04/28/2024 Yeast infection (ICD-10 - B37.9) 05/05/2024 Seasonal allergies (ICD-10 - J30.2) 05/18/2024 Seasonal allergies (ICD-10 - J30.2) 05/25/2024 Seasonal allergies (ICD-10 - J30.2) 05/25/2024 Leg edema (ICD-10 - R60.0) Continue compression stockings. Elevate legs when possible. 06/01/2024 Seasonal allergies (ICD-10 - J30.2) 06/09/2024 Allergic rhinitis (ICD-10 - J30.9) 03/30/2024 Acute sinusitis (ICD-10 - J01.90) 03/30/2024 Allergic rhinitis (ICD-10 - J30.9) 04/07/2024 Allergic rhinitis (ICD-10 - J30.9) 04/10/2024 Left foot pain (ICD-10 - M79.672) 10/20/2024 Acute URI (ICD-10 - J06.9) 10/20/2024 HTN (hypertension) (ICD-10 - I10) 10/31/2024 Allergic rhinitis (ICD-10 - J30.9) 11/17/2024 Allergic rhinitis due to other allergic trigger, unspecified seasonality (ICD-10 - J30.89) 11/30/2024 HTN (hypertension) (ICD-10 - I10) 11/30/2024 Dyslipidemia (ICD-10 - E78.5) 12/12/2024 Adult general medical examination (ICD-10 - Z00.00) Patient instructed to return to office Annually for Annual Wellness Visits to include annual screenings of Pain assessment, Functional Ability assessment, Cognitive Ability assessment, Fall Risk assessment, Depression screening and Bladder control screening. 12/12/2024 HTN (hypertension) (ICD-10 - I10) 12/14/2024 Muscle strain of right upper back, initial encounter (ICD-10 - S29.012A) Alternate heat and ice. Instructed on gentle stretching exercises. 12/14/2024 Seasonal allergic rhinitis, unspecified trigger (ICD-10 - J30.2) 12/21/2024 CHER (obstructive sleep apnea) (ICD-10 - G47.33) 12/21/2024 Seasonal allergic rhinitis, unspecified trigger (ICD-10 - J30.2) 12/28/2024 Allergic rhinitis, unspecified seasonality, unspecified trigger (ICD-10 - J30.9) 01/05/2025 Allergic rhinitis, unspecified seasonality, unspecified trigger (ICD-10 - J30.9) 01/11/2025 Allergic rhinitis, unspecified seasonality, unspecified trigger (ICD-10 - J30.9) 01/19/2025 Acute URI (ICD-10 - J06.9) Has cough medication at home. 01/23/2025 Acute sinusitis (ICD-10 - J01.90) 02/01/2025 Sciatica (ICD-10 - M54.30) 02/01/2025 Allergic rhinitis, unspecified (ICD-10 - J30.9) 02/08/2025 Allergic rhinitis (ICD-10 - J30.9) 02/20/2025 Allergic rhinitis (ICD-10 - J30.9) 02/20/2025 Acute sinusitis (ICD-10 - J01.90) 03/02/2025 Allergic rhinitis, unspecified seasonality, unspecified trigger (ICD-10 - J30.9) 03/06/2025 Leukocytosis (ICD-10 - D72.829) Source of infection is not immediately evident. May be a stress reaction. 03/16/2024 Seasonal allergies (ICD-10 - J30.2) 03/21/2024 Acute sinusitis (ICD-10 - J01.90) 03/06/2025 Cough (ICD-10 - R05.9) 04/13/2024 Dysuria (ICD-10 - R30.0) 03/06/2025 Hypotension (ICD-10 - I95.9) She will monitor her blood pressure at home and hold her olmesartan for systolic pressure less than 110 12/12/2024 Dyslipidemia (ICD-10 - E78.5) 11/30/2024 Hyperuricemia (ICD-10 - E79.0) 09/13/2024 Acute allergic rhinitis (ICD-10 - J30.9) 04/13/2024 Allergic rhinitis, unspecified seasonality, unspecified trigger (ICD-10 - J30.9) 11/30/2024 Iron deficiency anemia, unspecified iron deficiency anemia type (ICD-10 - D50.9) 12/12/2024 Hyperuricemia (ICD-10 - E79.0) 03/06/2025 Hyperglycemia (ICD-10 - R73.9) 12/12/2024 Iron deficiency anemia, unspecified iron deficiency anemia type (ICD-10 - D50.9) 11/30/2024 Seizure disorder (ICD-10 - G40.909) 12/12/2024 Seizure disorder (ICD-10 - G40.909) 12/12/2024 Gastroesophageal reflux disease without esophagitis (ICD-10 - K21.9) 12/12/2024 Seasonal allergies (ICD-10 - J30.2) 12/12/2024 CHER (obstructive sleep apnea) (ICD-10 - G47.33) 12/12/2024 BMI 32.0-32.9,adult (ICD-10 - Z68.32) Plan Of Treatment Pending Test Test Name Order Date Uric acid 11/12/2020 H-CBC 04/20/2023 H-Lipid Panel 04/20/2023 H-CMP 04/20/2023 H-Glycohemoglobin A1C 04/20/2023 H-URIC ACID 05/10/2023 H-Iron 04/20/2023 Insurance Providers Payer Name Payer Address Payer Phone Subscriber Number Group Number Insured Name Patient Relationship to Insured Coverage Start Date Coverage End Date [facility] [address] [address] [place] [phone] [id number] ISMAEL CARTER Self - patient is the insured [facility] [address] [place] [id number] ISMAEL CARTER Self - patient is the insured Medications Administered Medication Instructions Date of Administration Dosage Notes allergy 03/12/2015 0.15 mL allergy 03/12/2015 0.15 mL allergy 05/03/2015 0.25 mL allergy 05/03/2015 0.25 mL allergy 10/28/2015 0.30 mL allergy 10/28/2015 0.30 mL allergy 11/28/2015 0.35 mL allergy 11/28/2015 0.35 mL allergy 01/17/2016 0.10 mL allergy 01/17/2016 0.10 mL allergy 01/24/2016 0.10 mL allergy 01/24/2016 0.10 mL allergy 02/14/2016 0.10 mL allergy 02/14/2016 0.10 mL allergy 02/21/2016 0.10 mL allergy 02/21/2016 0.10 mL allergy 03/13/2016 .10 mL allergy 03/13/2016 .10 mL allergy 03/27/2016 .10 allergy 03/27/2016 .10 allergy 04/03/2016 0.15 mL allergy 04/03/2016 0.15 mL allergy 05/01/2016 0.35 mL allergy 05/01/2016 0.35 mL allergy 05/08/2016 0.40 mL allergy 05/08/2016 0.40 mL allergy 05/15/2016 0.45 mL allergy 05/15/2016 0.45 mL allergy 05/22/2016 0.50 mg allergy 05/22/2016 0.50 mg allergy 06/12/2016 0.15 mL allergy 06/12/2016 0.15 mL allergy 06/19/2016 0.20 mL allergy 06/19/2016 0.20 mL allergy 08/01/2016 0.50 mL allergy 08/01/2016 0.50 mL allergy 09/04/2016 0.20 mL allergy 09/04/2016 0.20 mL allergy 09/11/2016 0.25 mL allergy 09/11/2016 0.25 mL allergy 09/18/2016 0.30 mL allergy 09/18/2016 0.30 mL allergy 10/24/2016 0.05 mL allergy 10/24/2016 0.05 mL allergy 12/26/2016 0.40 mL allergy 12/26/2016 0.40 mL allergy 01/01/2017 0.50 mL allergy 01/01/2017 0.50 mL allergy 02/26/2017 allergy 02/26/2017 allergy 03/12/2017 0.05 mL allergy 03/12/2017 0.05 mL allergy 04/02/2017 0.15 mL allergy 04/02/2017 0.15 mL allergy 04/23/2017 0.30 mL allergy 04/23/2017 0.30 mL allergy 04/30/2017 0.35 mL allergy 04/30/2017 0.35 mL allergy 07/23/2017 0.35 mL allergy 07/23/2017 0.35 mL allergy 07/30/2017 0.40 mL allergy 07/30/2017 0.40 mL allergy 08/06/2017 0.45 mL allergy 08/06/2017 0.45 mL allergy 09/02/2017 0.15 mg allergy 09/02/2017 0.15 mg allergy 09/10/2017 0.20 mL allergy 09/10/2017 0.20 mL allergy 09/16/2017 0.25 mL allergy 09/16/2017 0.25 mL allergy 09/24/2017 0.30 mL allergy 09/24/2017 0.30 mL allergy 10/08/2017 0.35 mL allergy 10/08/2017 0.35 mL allergy 10/28/2017 0.15 mL allergy 10/28/2017 0.15 mL allergy 11/12/2017 0.20 mg allergy 11/12/2017 0.20 mg allergy 11/26/2017 0.25 mL allergy 11/26/2017 0.25 mL allergy 12/10/2017 0.30 mL allergy 12/10/2017 0.30 mL allergy 12/24/2017 0.35 mL allergy 12/24/2017 0.35 mL allergy 01/07/2018 0.35 mL allergy 01/07/2018 0.35 mL allergy 01/24/2018 0.35 mL allergy 01/24/2018 0.35 mL allergy 03/03/2018 0.35 mL allergy 03/03/2018 0.35 mL allergy 03/18/2018 0.35 mg allergy 03/18/2018 0.35 mg allergy 04/01/2018 0.20 mg allergy 04/01/2018 0.20 mg allergy 07/23/2018 0.35 mL allergy 07/23/2018 0.35 mL allergy 08/19/2018 0.20 mg allergy 08/19/2018 0.20 mg allergy 09/16/2018 0.30 mL allergy 09/16/2018 0.30 mL allergy 10/28/2018 0.35 mg allergy 10/28/2018 0.35 mg allergy 11/25/2018 0.35 mL allergy 11/25/2018 0.35 mL allergy 12/09/2018 0.35 mL allergy 12/09/2018 0.35 mL allergy 2018 0.15 mg allergy 2018 0.15 mg allergy 01/06/2019 .20 mL allergy 01/06/2019 .20 mL allergy 03/31/2019 0.25 allergy 03/31/2019 0.25 allergy 05/05/2019 0.30 mg allergy 05/05/2019 0.30 mg allergy 07/21/2019 0.35 allergy 07/21/2019 0.35 allergy 08/04/2019 0.35 mL allergy 08/04/2019 0.35 mL allergy 03/02/2020 0.15 mg allergy 03/02/2020 0.15 mg allergy 03/15/2020 0.20 mL allergy 03/15/2020 0.20 mL allergy 03/29/2020 0.25 mg allergy 03/29/2020 0.25 mg allergy 05/24/2020 0.35 mL allergy 05/24/2020 0.35 mL allergy 06/06/2020 0.35 mL allergy 06/06/2020 0.35 mL allergy 07/19/2020 0.15 mL allergy 07/19/2020 0.15 mL allergy 09/14/2020 0.35 mL allergy 09/14/2020 0.35 mL allergy 09/30/2020 0.35 mL allergy 09/30/2020 0.35 mL allergy 11/12/2020 0.35 mL allergy 11/12/2020 0.35 mL allergy 02/13/2021 0.10 mL Right Upper-1 allergy 02/13/2021 0.10 mL Right Upper-2 allergy 02/13/2021 0.10 mL Left Upper- 3 allergy 02/21/2021 0.20 mL allergy 02/21/2021 0.20 mL allergy 02/21/2021 0.20 mL allergy 02/27/2021 0.3 mg allergy 02/27/2021 0.3 mg allergy 02/27/2021 0.3 mg allergy 03/04/2021 0.4 mL allergy 03/04/2021 0.4 mL allergy 03/04/2021 0.4 mL allergy 03/07/2021 0.5 mL allergy 03/07/2021 0.5 mL allergy 03/07/2021 0.5 mL allergy 04/03/2021 0.4 mL allergy 04/03/2021 0.4 mL allergy 04/03/2021 0.4 mL allergy 05/17/2021 0.15 mL allergy 05/17/2021 0.15 mL allergy 05/17/2021 0.15 mL allergy 05/20/2021 0.2 allergy 05/20/2021 0.2 mL allergy 05/20/2021 0.2 mL allergy 05/23/2021 0.25 mL allergy 05/23/2021 0.25 mL allergy 05/23/2021 0.25 mL allergy 06/05/2021 0.45 mL Right arm allergy 06/05/2021 0.45 mL Left arm upper allergy 06/05/2021 0.45 mL Left arm lower allergy 06/10/2021 0.5 mL mix 1 allergy 06/10/2021 0.5 mL mix 2 allergy 06/10/2021 0.5 mL mix 3 allergy 06/24/2021 0.5 mL allergy 06/24/2021 0.5 mL allergy 06/24/2021 0.5 mL allergy 08/06/2021 0.5 mL Mix 1 allergy 08/06/2021 0.5 mL allergy 08/06/2021 0.5 mL allergy 08/14/2021 0.5 mL Mix 1 RU allergy 08/14/2021 0.5 mL Mix 2 RL allergy 08/14/2021 0.5 mL Mix 3 JOSE LUIS allergy 08/22/2021 0.5 mL allergy 08/22/2021 0.5 mL allergy 08/22/2021 0.5 mL allergy 10/03/2021 0.5 mL allergy 10/03/2021 0.5 mL allergy 10/03/2021 0.5 mL allergy 10/10/2021 0.5 mL allergy 10/10/2021 0.5 mL allergy 10/10/2021 0.5 mL allergy 10/24/2021 0.35 mL Mix 1 allergy 10/24/2021 0.35 mL Mix 2 allergy 10/24/2021 0.35 mL allergy 11/11/2021 0.5 mL allergy 11/11/2021 0.5 mL allergy 11/11/2021 0.5 mL allergy 03/07/2024 0.05 mL Back of Left A rm allergy 03/07/2024 0.05 mL Back of Right Arm allergy 03/16/2024 0.10 mL Right Arm allergy 03/16/2024 0.10 mL Left Arm allergy 03/24/2024 0.15 mL allergy 03/24/2024 0.15 mL allergy 05/18/2024 0.05 mL allergy 05/18/2024 0.05 mL allergy 06/01/2024 0.10 mL right arm allergy 06/01/2024 0.10 mL left arm allergy 06/29/2024 0.20 mL allergy 06/29/2024 0.20 mL allergy 12/14/2024 0.05 mL allergy 12/14/2024 allergy 12/21/2024 allergy 12/21/2024 allergy 12/28/2024 0.1 mL mix 1; JOSE LUIS allergy 12/28/2024 0.10 mL mix 2; RU allergy 01/05/2025 0.1 mL Mix RON: RU allergy 01/05/2025 0.1 mL Mix DP: JOSE LUIS allergy 01/11/2025 0.20 mL allergy 01/11/2025 0.20 mL allergy 02/01/2025 0.25 mL allergy 02/01/2025 0.25 mL allergy 02/08/2025 0.20 mL mix DP: right arm allergy 02/08/2025 0.20 mL mix RON: left arm allergy 02/20/2025 0.25 mL extract: DP- R A allergy 02/20/2025 0.25 mL extract: RON- LA allergy 03/02/2025 0.30 mL allergy 03/02/2025 0.30 mL Depo- Medrol 40 mg/ml 05/01/2016 1.5 mL Depo- Medrol 40 mg/ml 05/15/2016 1 mL Depo- Medrol 40 mg/ml 03/21/2024 1 mL Dexamethasone 04/25/2007 1 mL allergy 11/17/2024 allergy 11/17/2024 allergy 10/31/2024 0.25 mL allergy 10/31/2024 0.25 mL allergy 10/12/2024 0.25 mL allergy 10/12/2024 0.25 mL allergy 10/06/2024 0.25 mL allergy 10/06/2024 0.25 mL allergy 09/28/2024 0.25 mL allergy 09/28/2024 0.25 mL allergy 09/21/2024 0.25 mL MCP right arm allergy 09/21/2024 0.25 mL DP left arm allergy 09/13/2024 0.20 mL allergy 09/13/2024 0.20 mL allergy 09/07/2024 0.15 mL allergy 09/07/2024 0.15 mL allergy 08/24/2024 0.15 mL allergy 08/24/2024 0.15 mL allergy 08/17/2024 0.1 mL allergy 08/17/2024 0.1 mL allergy 08/10/2024 DP right arm allergy 08/10/2024 RON left arm allergy 06/09/2024 0.1 mL allergy 06/09/2024 0.1 mL allergy 05/25/2024 0.05 mL allergy 05/25/2024 0.05 mL allergy 05/05/2024 left arm allergy 05/05/2024 right arm allergy 04/21/2024 0.35 mL allergy 04/21/2024 0.35 mL allergy 04/13/2024 0.30 mL allergy 04/13/2024 0.30 mL allergy 04/07/2024 0.25 mL allergy 04/07/2024 0.25 mL allergy 03/30/2024 0.20 mL allergy 03/30/2024 0.20 mL allergy 11/18/2021 0.5 mL allergy 11/18/2021 0.5 mL allergy 11/18/2021 0.5 mL allergy 11/13/2021 0.5 mL allergy 11/13/2021 0.5 mL allergy 11/13/2021 0.5 mL allergy 11/07/2021 0.5 mL allergy 11/07/2021 0.5 mL allergy 11/07/2021 0.5 mL allergy 11/05/2021 0.5 mg allergy 11/05/2021 0.5 mg allergy 11/05/2021 0.5 mg allergy 10/31/2021 0.5 mL allergy 10/31/2021 0.5 mL allergy 10/31/2021 0.5 mL allergy 10/29/2021 allergy 10/29/2021 0.5 mL allergy 10/29/2021 0.5 mL allergy 10/07/2021 0.5 mL Mix 3 RU allergy 10/07/2021 0.5 mL Mix 2 LL allergy 10/07/2021 0.5 mL Mix 1 JOSE LUIS allergy 09/26/2021 0.5 mL allergy 09/26/2021 0.5 [...] 0.5 mL allergy 08/29/2021 0.5 mL allergy 08/18/2021 0.5 mL Mix 3 RU allergy 08/18/2021 0.5 mL Mix 2 JOSE LUIS allergy 08/18/2021 0.5 mL Mix 1 LL allergy 07/31/2021 0.35 mL allergy 07/31/2021 0.35 mL allergy 07/31/2021 0.35 mL allergy 06/02/2021 0.4 mL allergy 06/02/2021 0.4 mL allergy 06/02/2021 0.4 mL allergy 05/29/2021 0.35 allergy 05/29/2021 0.35 mL allergy 05/29/2021 0.35 mL allergy 05/27/2021 0.3 mL allergy 05/27/2021 0.3 mL allergy 05/27/2021 0.3 mL allergy 05/13/2021 0.1 mL allergy 05/13/2021 0.1 mL allergy 05/13/2021 0.1 mL allergy 05/05/2021 0.5 mL allergy 05/05/2021 0.5 mL allergy 05/05/2021 0.5 mL allergy 05/02/2021 0.5 mL allergy 05/02/2021 0.5 mL allergy 05/02/2021 0.5 mL given by Vicki Singer allergy 04/28/2021 0.3 mL allergy 04/28/2021 0.3 mL allergy 04/28/2021 0.3 mL allergy 04/23/2021 0.20 mL #3 LA allergy 04/23/2021 0.20 mL #2 RA bottom allergy 04/23/2021 0.20 mL #1 RA top allergy 04/21/2021 0.10 mL Vial #2 Left u pper arm bottom allergy 04/21/2021 0.10 mL Vial #3 right upper arm allergy 04/21/2021 0.10 mL Vial #1 Left u pper arm top allergy 04/07/2021 0.50 mL allergy 04/07/2021 0.50 mL allergy 04/07/2021 0.50 mL allergy 03/25/2021 0.20 mL Mix 3 allergy 03/25/2021 0.20 mL Mix 2 allergy 03/25/2021 0.20 mL Mix 1 allergy 03/21/2021 .2 mL allergy 03/21/2021 .2 mL allergy 03/21/2021 .2 mL allergy 03/18/2021 0.10 mL Blue Vial Mix 3 allergy 03/18/2021 0.10 mL Blue Vial Mix 2 allergy 03/18/2021 0.10 mL Blue vial Mix 1 allergy 01/17/2021 0.3 mL allergy 01/17/2021 0.3 mL allergy 01/03/2021 0.25 mL allergy 01/03/2021 0.25 mL allergy 12/20/2020 0.20 mL allergy 12/20/2020 0.20 mL allergy 12/06/2020 0.15 mL allergy 12/06/2020 0.15 mL allergy 11/21/2020 0.35 mL allergy 11/21/2020 0.35 mL allergy 10/25/2020 0.35 mL allergy 10/25/2020 .35 mL allergy 10/11/2020 0.35 mL allergy 10/11/2020 0.35 mL allergy 08/30/2020 0.3 mL allergy 08/30/2020 0.3 mL allergy 08/16/2020 0.25 mg allergy 08/16/2020 0.25 mg allergy 08/02/2020 0.20 mg allergy 08/02/2020 0.20 mg allergy 07/05/2020 0.35 mL allergy 07/05/2020 0.35 mL allergy 06/21/2020 0.35 mL allergy 06/21/2020 0.35 mL allergy 05/10/2020 0.35 mg allergy 05/10/2020 0.35 mg allergy 04/26/2020 0.30 mL allergy 04/26/2020 0.30 mL allergy 04/12/2020 0.30 mL allergy 04/12/2020 0.30 mL allergy 02/16/2020 0.35 mL allergy 02/16/2020 0.35 mL allergy 02/02/2020 0.35 mL allergy 02/02/2020 0.35 mL allergy 01/19/2020 0.35 mL allergy 01/19/2020 0.35 mL allergy 01/05/2020 0.35 mL allergy 01/05/2020 0.35 mL allergy 12/21/2019 0.35 mg allergy 12/21/2019 0.35 mg allergy 12/01/2019 0.35 mL allergy 12/01/2019 0.35 mL allergy 11/17/2019 allergy 11/17/2019 allergy 11/03/2019 0.25 mg allergy 11/03/2019 0.25 mg allergy 10/24/2019 0.20 mg allergy 10/24/2019 0.20 mg allergy 10/13/2019 0.15 mL allergy 10/13/2019 0.15 mL allergy 09/29/2019 allergy 09/29/2019 allergy 09/15/2019 0.35 mg allergy 09/15/2019 0.35 mg allergy 09/06/2019 allergy 09/06/2019 allergy 08/25/2019 0.35 allergy 08/25/2019 0.35 allergy 06/09/2019 0.25 mL allergy 06/09/2019 0.25 mL allergy 05/26/2019 0.20 mL allergy 05/26/2019 0.20 mL allergy 05/12/2019 .15 allergy 05/12/2019 .15 allergy 03/17/2019 .2 mL allergy 03/17/2019 .2 mL allergy 03/03/2019 .20 allergy 03/03/2019 .20 allergy 02/17/2019 allergy 02/17/2019 allergy 02/03/2019 0.20 mL allergy 02/03/2019 0.20 mL allergy 01/20/2019 0.20 mg allergy 01/20/2019 0.20 mg allergy 11/09/2018 0.35 allergy 11/09/2018 0.35 allergy 10/14/2018 0.35 mL allergy 10/14/2018 0.35 mL allergy 10/03/2018 0.35 mL allergy 10/03/2018 0.35 mL allergy 09/02/2018 allergy 09/02/2018 allergy 08/05/2018 0.15 mg allergy 08/05/2018 0.15 mg allergy 06/10/2018 0.35 mg allergy 06/10/2018 0.35 mg allergy 05/27/2018 0.35 mL allergy 05/27/2018 0.35 mL allergy 05/13/2018 allergy 05/13/2018 .30 mL allergy 04/22/2018 0.25 mL allergy 04/22/2018 0.25 mL allergy 02/18/2018 0.35 mL allergy 02/18/2018 0.35 mL allergy 02/04/2018 0.35 mL allergy 02/04/2018 0.35 mL allergy 10/22/2017 0.35 mL allergy 10/22/2017 0.35 mL allergy 10/15/2017 0.35 mL allergy 10/15/2017 0.35 mL allergy 10/01/2017 0.35 mL allergy 10/01/2017 0.35 mL allergy 08/27/2017 0.10 mL allergy 08/27/2017 0.10 mL allergy 08/20/2017 0.05 mL allergy 08/20/2017 0.05 ng allergy 08/13/2017 0.50 mL allergy 08/13/2017 0.50 mL allergy 06/25/2017 0.15 mL allergy 06/25/2017 0.15 mL allergy 06/17/2017 allergy 06/17/2017 allergy 06/11/2017 0.05 mL allergy 06/11/2017 0.05 mL allergy 05/28/2017 0.15 mL allergy 05/28/2017 0.15 mL allergy 05/21/2017 0.10 mL allergy 05/21/2017 0.10 mL allergy 05/14/2017 0.05 mL allergy 05/14/2017 0.05 mL allergy 05/07/2017 0.40 mL allergy 05/07/2017 0.40 mL allergy 04/17/2017 0.25 mL allergy 04/17/2017 0.25 mL allergy 04/09/2017 0.20 mL allergy 04/09/2017 0.20 mL allergy 03/25/2017 0.10 mL allergy 03/25/2017 0.10 mL allergy 03/19/2017 0.05 mL allergy 03/19/2017 0.05 mL allergy 03/05/2017 0.05 mL allergy 03/05/2017 0.05 mL allergy 02/19/2017 0.20 mL allergy 02/19/2017 0.20 mL allergy 02/13/2017 0.20 mL allergy 02/13/2017 .20 mL allergy 02/06/2017 0.20 mL allergy 02/06/2017 0.20 mL allergy 01/29/2017 0.20 mL allergy 01/29/2017 0.20 mL allergy 01/22/2017 0.20 mL allergy 01/22/2017 0.20 mL allergy 01/15/2017 0.15 mL allergy 01/15/2017 0.15 mL allergy 01/08/2017 0.10 mL allergy 01/08/2017 allergy 12/18/2016 0.35 mL allergy 12/18/2016 0.35 mL allergy 12/11/2016 30 mL allergy 12/11/2016 30 mL allergy 12/05/2016 0.25 mL allergy 12/05/2016 0.25 mL allergy 11/27/2016 0.20 mL allergy 11/27/2016 0.20 mL allergy 11/20/2016 0.20 mg allergy 11/20/2016 0.20 mg allergy 11/12/2016 0.15 mL allergy 11/12/2016 0.15 mL allergy 10/30/2016 .10 mL allergy 10/30/2016 .50 mL Gave .50. THe dose should have been .10 allergy 10/16/2016 0.50 mL allergy 10/16/2016 0.50 mL allergy 10/09/2016 0.45 mL allergy 10/09/2016 0.45 mL allergy 10/02/2016 0.40 mL allergy 10/02/2016 0.40 mL allergy 09/25/2016 0.35 mL allergy 09/25/2016 0.35 mL allergy 08/28/2016 0.15 mL allergy 08/28/2016 0.15 mL allergy 08/21/2016 0.10 mL allergy 08/21/2016 0.10 mL allergy 08/14/2016 0.05 mL allergy 08/14/2016 0.05 mL allergy 06/26/2016 0.25 mL allergy 06/26/2016 0.25 mL allergy 06/05/2016 0.10 mL allergy 06/05/2016 0.10 mL allergy 05/29/2016 0.05 mg allergy 05/29/2016 0.05 mg allergy 04/24/2016 0.30 mL allergy 04/24/2016 0.30 mL allergy 04/17/2016 0.25 mL allergy 04/17/2016 0.25 mL allergy 04/10/2016 0.20 mL allergy 04/10/2016 0.20 mL allergy 03/20/2016 0.05 mL allergy 03/20/2016 0.05 mL allergy 03/06/2016 0.10 mg allergy 03/06/2016 0.10 mg allergy 02/27/2016 0.10 mg allergy 02/27/2016 0.10 mL allergy 02/07/2016 0.10 mL allergy 02/07/2016 0.10 mL allergy 02/01/2016 0.10 mL allergy 02/01/2016 0.10 mL allergy 01/10/2016 0.05 mL allergy 01/10/2016 0.05 mL allergy 09/27/2015 0.25 mL allergy 09/27/2015 0.25 mL allergy 08/29/2015 0.20 mL allergy 08/29/2015 0.20 mL allergy 08/05/2015 .15 mL allergy 08/05/2015 .15 mL allergy 06/01/2015 0.30 mL allergy 06/01/2015 0.30 mL allergy 04/05/2015 0.20 mL allergy 04/05/2015 0.20 mL allergy 02/09/2015 0.15 mL allergy 02/09/2015 0.15 mL Dexamethasone 05/26/2022 1.5 mL Dexamethasone 12/04/2021 1 mL Dexamethasone 11/15/2018 1 mL Dexamethasone 11/11/2018 1 mL Dexamethasone 06/06/2007 1.5 mL Dexamethasone 10/28/2006 1 mL Dexamethasone 12/15/2005 1 mL Depo- Medrol 40 mg/ml 09/16/2015 1.5 mL Depo- Medrol 40 mg/ml 11/22/2007 1.5 mL Medical (General) History Medical History History [...] Replacement 03/17/2013 Rt Total Knee Replacement 11/15/2013 [facility]-Lumbar Fusion (L3,L4,L5) - Dr. Gipson 06/2014 Gastric Sleeve 03/26/17 Lt Eye Cataract- Dr. Zaman 02/2019 T11-L5 spinal fusion, Dr. Wen castañeda ton 04/05/2019 Rt Cataract 10/2019 Back Surgery/ Rods placed by Dr. Carver - 07/22/2022 Hospitalization History Reason Date(Month/Year) Seizures 1978 ,1995
--- NOTE | 2025-03-13 12:45 | ECG_ITS ---
APPROVED REPORT Exam: Resting ECG HR:68 bpm ECG Measurements Heart Rate 68 AXES [place] 156 P 50 QRSd 83 QRS 58 QT 394 T 211 QTc 411 Conclusion SINUS RHYTHM LOW QRS VOLTAGE IN PRECORDIAL LEADS [QRS DEFLECTION < 1.0 mV IN CHEST LEADS] ANTEROSEPTAL MYOCARDIAL INFARCTION , OF INDETERMINATE AGE [40+ ms Q WAVE IN V1-V4] ABNORMAL ECG UNCONFIRMED REPORT Electronically signed by : Tiburcio Pinto MD 03/13/2025 17:04:42
[2025-03-13 13:04] LABS: Hematocrit 33.6 % (37.0-47.0); Hemoglobin 10.7 g/dL (12.2-16.2); Immature Granulocytes % 0.6 %; Mean Corpuscular HGB Conc 31.8 g/dL (31.8-35.4); Mean Corpuscular Hemoglobin 27.6 pg (27.0-31.2); Mean Corpuscular Volume 86.6 fl (81-99); Nucleated Red Blood Cells % 0 %; Platelet Count 335 K/mm3 (142-424); Red Blood Count 3.88 M/mm3 (4.20-5.40); Red Cell Distribution Width-SD 47.3 fL; White Blood Count 15.4 K/mm3 (4.8-10.8)
[2025-03-13 13:19] LABS: Alanine Aminotransferase 57 U/L (12-78); Albumin Level 3.7 g/dl (3.5-5.0); Albumin/Globulin Ratio 1.5 (1.1-1.8); Alkaline Phosphatase 87 U/L (38-126); Anion Gap 14.2 mEq/L (5-15); Aspartate Amino Transferase 44 U/L (14-36); Bilirubin,Total 0.7 mg/dl (0.2-1.3); Blood Urea Nitrogen 34 mg/dl (7-17); Calcium 8.5 mg/dl (8.4-10.2); Carbon Dioxide 23 mmol/L (22.0-30.0); Chloride 105 mmol/L (98-107); Creatinine Clearance Estimated 68 mL/min (50-200); Creatinine,Serum 1.00 mg/dl (0.52-1.04); Estimated Glomerular Filt Rate 54 ml/min (>60); GFR (African American) 66 ML/MIN (>60); Globulin 2.4 g/dL (1.3-3.2); Glucose 146 mg/dl (74-100); Potassium 4.2 mmoL/L (3.5-5.1); Sodium 138 mmol/L (136-145); Total Protein,Serum 6.1 g/dl (6.3-8.2)
[2025-03-13 13:27] LABS: Hemoglobin A1C 6.9 % (4.0-6.0)
[2025-03-13 15:03] LABS: 25-OH Vitamin D, Total 54.0 ng/mL (30-100)
== END 2025-03-13 23:59 | disposition home or self-care (01) ==
LOC: PREOP 12:11
PROVIDERS: PCP Family Medicine; Visit Provider Podiatrist
DX: Z01.810 Encounter for preprocedural cardiovascular examination (principal); Z01.811 Encounter for preprocedural respiratory examination; Z01.812 Encounter for preprocedural laboratory examination; I25.2 Old myocardial infarction; R94.31 Abnormal electrocardiogram [ECG] [EKG]
CPT/HCPCS: 71046; 80053; 82306; 83036; 85025; 93005

== ENCOUNTER 2025-03-15 10:49 | Outpatient (CLI) | payer MEDICARE, OTHER, SELFPAY ==
[2025-03-15 11:50] LABS: Albumin Level 3.5 g/dl (3.5-5.0); Anion Gap 13.1 mEq/L (5-15); Blood Urea Nitrogen 29 mg/dl (7-17); Calcium 8.4 mg/dl (8.4-10.2); Carbon Dioxide 25 mmol/L (22.0-30.0); Chloride 104 mmol/L (98-107); Creatinine,Serum 1.00 mg/dl (0.52-1.04); Estimated Glomerular Filt Rate 54 ml/min (>60); GFR (African American) 66 ML/MIN (>60); Glucose 164 mg/dl (74-100); Phosphorous 3.4 mg/dl (2.5-4.5); Potassium 4.1 mmoL/L (3.5-5.1); Sodium 138 mmol/L (136-145)
[2025-03-15 12:07] LABS: 25-OH Vitamin D, Total 51.2 ng/mL (30-100)
== END 2025-03-15 23:59 | disposition home or self-care (01) ==
LOC: LAB 10:50
PROVIDERS: PCP Family Medicine; Visit Provider Internal Medicine
DX: N18.31 Chronic kidney disease, stage 3a (principal); M81.0 Age-related osteoporosis without current pathological fracture
CPT/HCPCS: 36415; 80069; 82306; 82523; 82610; 83937; 84080

== ENCOUNTER 2025-03-30 10:09 | Outpatient (CLI) | payer MEDICARE, OTHER, SELFPAY ==
--- OUTSIDE RECORDS SUMMARY | 2025-01-05 09:40 | XMS_ITS ---
Author Organization [facility] Address [address] [place] [id number] Care Team Providers Care Automotive Tire Technician Name Role Phone Samy Roberts Primary Care Provider Mckinney, Guero Unavailable [phone] REASON FOR VISIT allergy shot Medications Medication SIG (Take, Route, Frequency, Duration) Notes Start Date End Date Status Furosemide 20 MG 1 tablet Orally once daily; Duration: 90 days Active CareTouch CPAP & BIPAP Hose as directed 08/18/2021 Active Rosuvastatin Calcium 10 mg TAKE ONE TABLET BY MOUTH EVERY DAY; Duration: 90 Active Olmesartan Medoxomil 20 mg take 1 tablet orally once a day; Duration: 90 days Active Allopurinol 300 mg TAKE ONE TABLET BY MOUTH EVERY DAY; Duration: 90 Active Nystatin-Triamcinolone 591023-3.1 UNIT/GM 1 application Externally Twice a day 04/28/2024 Active Albuterol Sulfate HFA 108 (90 Base) MCG/ACT 1 puff as needed Inhalation every 4 hrs Active Zenpep 47942-32261 UNIT 1 cap(s) Orally Three times a day Active Keppra XR 500 MG 1 q am, 4 q hs orally Active Omeprazole 40 MG 1 cap(s) orally once a day Active Azelastine HCl 137 MCG/SPRAY 2 spray(s) intranasally 2 times a day Active Fish Oil 1200 MG 1 cap(s) orally once daily Active Gabapentin 100 MG 2 caps orally qid Active Vagifem 10 MCG 1 tab(s) intravagina lly 3 times a week Active Multiple Vitamin - 1 cap(s) orally once a day; Duration: 30 day(s) Active Aspirin 81 81 MG 1 tablet Orally Once a day; Duration: 30 day(s) Active Calcium 600 + Minerals 600-200 MG-UNIT 2 tab(s) orally once a day; Duration: 30 day(s) Active Olopatadine HCl 0.1 % 1 drop into affect ed eye Ophthalmic Twice a day Active Prolia 60 MG/ML as directed Subcutaneous every 6 months Active Qvar RediHaler 40 MCG/ACT 2 puff(s) inha led 2 times a day Not-Taking Montelukast Sodium 10 MG 1 tab(s) orally once a day Not-Taking ZyrTEC Allergy 10 MG 1 tab(s) orally onc e a day Not-Taking Xhance 93 MCG/ACT 1 spray(s) in each nostril 2 times a day Not-Taking Cyclobenzaprine HCl 5 MG 1 tablet Orally twice a day 12/21/2024 Active Encounters Encounter Location Date Provider Diagnosis [facility] [address] [facility] [address] [place], [place] [id number] 01/05/2025 Guero Estrada Allergic rhinitis, unspecified seasonality, unspecified trigger J30.9 Assessments Encounter Date Diagnosis (ICD Code) Assessment Notes Treatment Notes Treatment Clinical Notes Section Notes 01/05/2025 Allergic rhinitis, unspecified seasonality, unspecified trigger (ICD-10 - J30.9) Plan Of Treatment No Information Medications Administered Medication Instructions Date of Administration Dosage Notes allergy 01/05/2025 0.1 mL Mix RON: RU allergy 01/05/2025 0.1 mL Mix DP: JOSE LUIS Progress Notes * JHONCLEMENTE JOSÉ MIGUELB:1950 ( 74 yo F)Acc No.[id number]:01/05/2025 Patient: ISMAEL HENLEY Provider: Aracelis Estrada M.D. :1950 A ge:74 Y S ex:Female Date:01/05/2025 Address:[id number] Pcp:Samy Roberts Subjective: * Chief Complaints: * 1 . Allergy shot. * Medical History: * Medications: T aking Olopatadine HCl 0.1 [...] 1 cap(s) orally once daily , Taking Keppra XR 500 MG Tablet Extended Release 24 Hour 1 q am, 4 q hs orally , Taking Omeprazole 40 MG Capsule Delayed Release 1 cap(s) orally once a day , Taking Albuterol Sulfate HFA 108 (90 Base) MCG/ACT Aerosol Solution 1 puff as needed Inhalation every 4 hrs , Taking Zenpep 47380-59167 UNIT Capsule Delayed Release Particles 1 cap(s) Orally Three times a day , Taking Nystatin-Triamcinolone 686150-9.1 UNIT/GM Cream 1 application Externally Twice a day , Taking Furosemide 20 MG Tablet 1 tablet Orally once daily , Taking Allopurinol 300 mg Tablet TAKE ONE TABLET BY MOUTH EVERY DAY , Taking Rosuvastatin Calcium 10 mg Tablet TAKE ONE TABLET BY MOUTH EVERY DAY , Taking Olmesartan Medoxomil 20 mg Tablet take 1 tablet orally once a day , Taking CareTouch CPAP & BIPAP Hose MACHINE AND SUPPLIES as directed , Taking Cyclobenzaprine HCl 5 MG Tablet 1 tablet Orally twice a day , Not-Taking ZyrTEC Allergy 10 [...] List reviewed and reconciled with the patient Objective: * Vitals: Assessment: * Assessment: 1. A llergic rhinitis, unspecified seasonality, unspecified trigger - J30.9 (Primary) ? Plan: * Treatment: * Therapeutic Injections: allergy : 0.1 mL (Route: Subcutaneous) given by Vicki Singer on subcutaneus (Allergic rhinitis, unspecified seasonality, unspecified trigger) allergy : 0.1 mL (Route: Subcutaneous) given by Vicki Singer on subcutaneus (Allergic rhinitis, unspecified seasonality, unspecified trigger) * Procedure Codes: 9 5117 IMMUNOTHERAPY INJECTIONS * Images: Billing Information: * Visit Code: * Procedure Codes: 34940 IMMUNOTHERAPY INJECTIONS. * Electronic signature of Deb Estrada MD on 03/30/2025 at 10:18 AM EDT Sign off status: Pending * Provider: Aracelis Estrada M.D. Date: 0 01/05/2025 Generated for Rose varela/Aida/Jae on: 1 10:18 AM EDT
--- OUTSIDE RECORDS SUMMARY | 2025-01-11 08:00 | XMS_ITS ---
Author Organization [facility] Address [address] [facility] [address] [facility] [address] [place] [id number] Care Team Providers Care Inventory Control Assistant Name Role Phone Samy Roberts Primary Care Provider REASON FOR VISIT allergy shot Encounters Encounter Location Date Provider Diagnosis [facility] [address] [facility] [address] [facility] [address] [place] [id number] 01/11/2025 Samy Roberts Allergic rhinitis, unspecified seasonality, unspecified trigger J30.9 Assessments Encounter Date Diagnosis (ICD Code) Assessment Notes Treatment Notes Treatment Clinical Notes Section Notes 01/11/2025 Allergic rhinitis, unspecified seasonality, unspecified trigger (ICD-10 - J30.9) Plan Of Treatment No Information Medications Administered Medication Instructions Date of Administration Dosage Notes allergy 01/11/2025 0.20 mL allergy 01/11/2025 0.20 mL Progress Notes * SADIA CARTERADOB:1950 ( 74 yo F)Acc No.[id number]:01/11/2025 Patient: ISMAEL HENLEY Provider: Samy Roberts M.D. :1950 A ge:74 Y S ex:Female Date:01/11/2025 Address:[id number] Subjective: * Chief Complaints: * 1 . Allergy shot. * Medical History: Objective: * Vitals: Assessment: * Assessment: 1. A llergic rhinitis, unspecified seasonality, unspecified trigger - J30.9 (Primary) ? Plan: * Treatment: * Therapeutic Injections: allergy : 0.20 mL (Route: Subcutaneous) given by VASYL Li on subcutaneus allergy : 0.20 mL (Route: Subcutaneous) given by VASYL Li on subcutaneus * Procedure Codes: 9 5117 IMMUNOTHERAPY INJECTIONS * Images: Billing Information: * Visit Code: * Procedure Codes: 83806 IMMUNOTHERAPY INJECTIONS. * Electronic signature of Samy Roberts MD on 03/30/2025 at 10:20 AM EDT Sign off status: Pending * Provider: Samy Roberts M.D. Date: 0 01/11/2025 Generated for Rose varela/Aida/Jae on: 1 10:20 AM EDT
--- OUTSIDE RECORDS SUMMARY | 2025-01-19 10:15 | XMS_ITS ---
Author Organization [facility] Address [address] [place] [id number] Care Team Providers Care Service Secretary Name Role Phone Samy Roberts Primary Care Provider Gretchen Oconnell Unavailable [phone] Allergies Allergen (clinical drug ingredient) Drug/Non Drug Allergy documented on EMR Reaction Allergy Type Onset Date Status Information temporarily unavailable Amoxicillin Unknown Drug Allergy Active Information temporarily unavailable Budesonide Unknown Drug Allergy Active Information temporarily unavailable Cefdinir does not help Drug Allergy Active Information temporarily unavailable Nabumetone Headaches Drug Allergy Active Information temporarily unavailable Reglan anxiety Drug Allergy Active Information temporarily unavailable Sulindac chest tightness Drug Allergy Active Information temporarily unavailable FABRICE Inhibitors cough Drug Allergy Active Information temporarily unavailable amLODIPine swelling Drug Allergy Active Information temporarily unavailable Sulfa Antibiotics Unknown Drug Allergy Active Results Component Value Reference Range Notes Influenza Screen (in house) Reviewed date:01/19/2025 05:02:40 PM Interpretation:neg Performing Lab: Notes/Report: neg results neg CBC Fingerstick (in house) Reviewed date:01/19/2025 05:02:40 PM Interpretation: Performing Lab: Notes/Report: wbc 9.3 3.5 - 10 lym 28.4 15 - 50 mid 6.4 2 - 15 gran 65.2 35 - 80 rbc 4.27 3.5 - 5.5 hgb 11.7 11.5 - 16.5 hct 36.5 35 - 55 mcv 85.5 75 - 100 mch 27.4 25 - 35 mchc 32.0 31 - 38 plat 298 100 - 400 Covid test (in house) Reviewed date:01/19/2025 05:02:40 PM Interpretation:neg Performing Lab: Notes/Report: neg Result: neg REASON FOR VISIT Headache Medications Medication SIG (Take, Route, Frequency, Duration) Notes Start Date End Date Status ZyrTEC Allergy 10 MG 1 tab(s) orally onc e a day Not-Taking Xhance 93 MCG/ACT 1 spray(s) in each nostril 2 times a day Not-Taking Olopatadine HCl 0.1 % 1 drop into affect ed eye Ophthalmic Twice a day Active Montelukast Sodium 10 MG 1 tab(s) orally once a day Not-Taking Qvar RediHaler 40 MCG/ACT 2 puff(s) inha led 2 times a day Not-Taking Allopurinol 300 mg TAKE ONE TABLET BY MOUTH EVERY DAY; Duration: 90 Active Rosuvastatin Calcium 10 mg TAKE ONE TABLET BY MOUTH EVERY DAY; Duration: 90 Active Olmesartan Medoxomil 20 mg take 1 tablet orally once a day; Duration: 90 days Active CareTouch CPAP & BIPAP Hose as directed 08/18/2021 Active Cyclobenzaprine HCl 5 MG 1 tablet Orally twice a day 12/21/2024 Not-Taking Nystatin-Triamcinolone 139207-9.1 UNIT/GM 1 application Externally Twice a day 04/28/2024 Active Furosemide 20 MG 1 tablet Orally once daily; Duration: 90 days Active Omeprazole 40 MG 1 cap(s) orally once a day Active Albuterol Sulfate HFA 108 (90 Base) MCG/ACT 1 puff as needed Inhalation every 4 hrs Active Zenpep 96718-23525 UNIT 1 cap(s) Orally Three times a day Active Vagifem 10 MCG 1 tab(s) intravagina lly 3 times a week Active Gabapentin 100 MG 2 caps orally qid Active Keppra XR 500 MG 1 q am, 4 q hs orally Active Azelastine HCl 137 MCG/SPRAY 2 spray(s) intranasally 2 times a day Active Fish Oil 1200 MG 1 cap(s) orally once daily Active Aspirin 81 81 MG 1 tablet Orally Once a day; Duration: 30 day(s) Active Calcium 600 + Minerals 600-200 MG-UNIT 2 tab(s) orally once a day; Duration: 30 day(s) Active Multiple Vitamin - 1 cap(s) orally once a day; Duration: 30 day(s) Active Prolia 60 MG/ML as directed Subcutaneous every 6 months Active Vital Signs Weight 192.2 lbs 01/19/2025 Blood pressure systolic 120 mm Hg 01/20/20 25 Blood pressure diastolic 74 mm Hg 025 Heart Rate 94 /min 01/19/2025 Height 64.50 in 01/19/2025 BMI 32.48 kg/m2 01/19/2025 Encounters Encounter Location Date Provider Diagnosis [facility] [address] [place] [id number] 01/19/2025 Gretchen Kourtney Acute URI J06.9 Assessments Encounter Date Diagnosis (ICD Code) Assessment Notes Treatment Notes Treatment Clinical Notes Section Notes 01/19/2025 Acute URI (ICD-10 - J06.9) Has cough medication at home. Plan Of Treatment Treatment Notes Assessment Notes Acute URI Has cough medication at home. Next Appt Details Follow Up: prn, Reason: Progress Notes * SADIA CARTERADOB:1950 ( 74 yo F)Acc No.[id number]:01/19/2025 Progress Notes Patient: ISMAEL HENLEY Provider: ALLISON Pagan :1950 A ge:74 Y S ex:Female Date:01/19/2025 Address:[address] [place] [address] [id number] Pcp:Samy Roberts Subjective: * Chief Complaints: * 1 . Headache. * HPI: E NT/respiratory: 74 year old female presents with c/o cough P t sts she has a cough off and on and sts it is a small cough. c/o headache P t sts she started feeling bad on Wednesday and sts afternoon she had light headaches throughout the day and felt stopped up. Pt sts this morning she woke up with a terrible headache. Pt sts she has been using tylenol for her headaches. c/o body aches P t sts she has aches in both legs. Denies : sore throat. D enies : Fever. * ROS: D ERMATOLOGY: no R soto. [...] Replacement 03/17/2013, Rt Total Knee Replacement 11/15/2013, [facility]-Lumbar Fusion (L3,L4,L5) - Dr. Gipson 06/2014, Gastric Sleeve 03/26/17, Lt Eye Cataract- Dr. Zaman 02/2019, T11-L5 spinal fusion, Dr. Wen quintero 04/05/2019, Rt Cataract 10/2019, Back Surgery/ Rods placed by Dr. Carver - 07/22/2022. * Hospitalization/Major Diagno stic Procedure: S eizures 1978 ,1995. * Family History: F ather: 64 yrs, [place]. M other: 69 yrs, [place]. P aternal [...] Inhalation every 4 hrs , Taking Zenpep 41475-93399 UNIT Capsule Delayed Release Particles 1 cap(s) Orally Three times a day , Taking Nystatin-Triamcinolone 042910-4.1 UNIT/GM Cream 1 application Externally Twice a [...] Hose MACHINE AND SUPPLIES as directed , Not-Taking Cyclobenzaprine HCl 5 MG Tablet 1 tablet Orally twice a day , Not- Taking ZyrTEC Allergy 10 MG Tablet 1 tab(s) [...] Side Effects. Objective: * Vitals: W t: 192.2, Temp: 98.2, BP: 120/74, HR: 94, Nurse: bari, Ht: 64.50, BMI:32.48. * Examination: E NT/Respiratory: General Appearance: N AD. E ars: a uditory canals normal bilaterally, TM's WNL. N ose : t urbinates red, congested. S inuses : t ken maxillary sinuses bilaterally. O ral cavity : e rythema without exudate on pharynx. N luh : n o cervical lymphadenopathy. H eart : R RR, normal S1 S2, no murmurs. L ungs:?clear to auscultation bilaterally. Assessment: * Assessment: 1. Ayla lea URI - J06.9 (Primary) Plan: * Treatment: Value Reference Range r esults neg * Yin Walker 01/19/2025 02:4 6:38 PM EDT > Provider reviewed results while patient in office. ?LAB: CBC Fingerstick (in house) (Collection Date & Time - 01/19/2025)* Value Reference Range w bc 9.3 3.5 - 10 * l ym 28.4 15 - 50 * m id 6.4 2 - 15 * g ran 65.2 35 - 80 * r bc 4.27 3.5 - 5.5 * h gb 11.7 11.5 - 16.5 * h ct 36.5 35 - 55 * m cv 85.5 75 - 100 * m ch 27.4 25 - 35 * m chc 32.0 31 - 38 * p lat 298 100 - 400 * Yin Walker 01/19/2025 02:1 6:16 PM EDT > Provider reviewed results while patient in office. ?LAB: Covid test (in house) (Collection Date & Time - 01/19/2025)?neg* Value Reference Range R esult: neg * Yin Walker 01/19/2025 02:4 6:55 PM EDT > Provider reviewed results while patient in office. Notes: Has cough medication at home.?? * Procedure Codes: 3 4050 CAPILLARY BLOOD DRAW, 40945 CBC WITH AUTO DIFF, 76695 Flu Test- Nasal Swab, Modifiers: QW , 63916 COVID TEST IN HOUSE, Modifiers: QW , G2211 Complex e/m visit add on, 1036F TOBACCO NON-USER, G8783 BP SCR PRFRM RCMDD DEFIND SCR INTVL, G8752 MOST RECENT SYSTOLIC BP < 140MM HG, G8754 MOST RECENT DIASTOLIC BP < 90MM HG * Follow Up: p rn * Images: Billing Information: * Visit Code: 00648 Office Visit, Est Pt., Level 3. * Procedure Codes: 57645 CAPILLARY BLOOD DRAW. 89205 CBC WITH AUTO DIFF. 26841 Flu Test- Nasal Swab. Modifiers: QW 85622 COVID TEST IN HOUSE. Modifiers: QW G2211 Complex e/m visit add on. 1036F TOBACCO NON-USER. G8783 BP SCR PRFRM RCMDD DEFIND SCR INTVL. G8752 MOST RECENT SYSTOLIC BP < 140MM HG. G8754 MOST RECENT DIASTOLIC BP < 90MM HG. * Electronic signature of ALLISON Robert on 03/30/2025 at 10:18 AM EDT Sign off status: Pending * Provider: ALLISON Pagan Date: 0 01/19/2025 Generated for Rose varela/Fafede/eTransmitting on: 1 10:18 AM EDT History and Physical Notes * HPI (History of Present Illness) Category Sub-Category Detail Notes Category Not es ENT/respiratory sore throat cough Pt sts she has a cou gh off and on and sts it is a small cough Fever headache Pt sts she started f eeling bad on Wednesday and sts yesterday afternoon she had light headaches throughout the day and felt stopped up. Pt sts this morning she woke up with a terrible headache. Pt sts she has been using tylenol for her headaches body aches Pt sts she has aches in both legs Examination Category Sub-Category Detail Notes Category Not es ENT/Respiratory Oral cavity : erythema without exudate on pharynx Sinuses : tender maxillary sin uses bilaterally Ears: auditory canals norm al bilaterally, TM's WNL Neck : no cervical lymphade nopathy Heart : RRR, normal S1 S2, n o murmurs Lungs: clear to auscultatio n bilaterally General Appearance: NAD Nose : turbinates red, misbah ested
--- OUTSIDE RECORDS SUMMARY | 2025-01-23 11:45 | XMS_ITS ---
Author Organization [facility] Address [address] [place] [id number] Care Team Providers Care Logging Shovel Operator Name Role Phone Samy Roberts Primary [...] Active Results Component Value Reference Range Notes CBC Fingerstick (in house) Reviewed date:01/25/2025 08:17:31 AM Interpretation: Performing Lab: Notes/Report: wbc 11.8 3.5 - 10 lym 23.9% 15 - 50 mid 6.4% 2 - 15 gran 69.7% 35 - 80 rbc 4.30 3.5 - 5.5 hgb 11.9 11.5 - 16.5 hct 37.1 35 - 55 mcv 86.2 75 - 100 mch 27.7 25 - 35 mchc 32.1 31 - 38 plat 286 100 - 400 REASON FOR VISIT not feeling well Medications Medication SIG (Take, Route, Frequency, Duration) Notes Start Date End Date Status Olmesartan Medoxomil 20 mg take 1 tablet orally once a day; Duration: 90 days Active Rosuvastatin Calcium 10 mg TAKE ONE TABLET BY MOUTH EVERY DAY; Duration: 90 Active CareTouch CPAP & BIPAP Hose as directed 08/18/2021 Active Allopurinol 300 mg TAKE ONE TABLET BY M OUT EVERY DAY; Duration: 90 Active Furosemide 20 MG 1 tablet Orally once daily; Duration: 90 days Active Nystatin-Triamcinolone 159214-3.1 UNIT/GM 1 application Externally Twice a day 04/28/2024 Active Zenpep 06177-82844 UNIT 1 cap(s) Orally Three times a day Active Keppra XR 500 MG 1 q am, 4 q hs orally Active Albuterol Sulfate HFA 108 (90 Base) MCG/ACT 1 puff as needed Inhalation every 4 hrs Active Omeprazole 40 MG 1 cap(s) orally once a day Active Vagifem 10 MCG 1 tab(s) intravagina lly 3 times a week Active Gabapentin 100 MG 2 caps orally qid Active Fish Oil 1200 MG 1 cap(s) orally once daily Active Azelastine HCl 137 MCG/SPRAY 2 spray(s) intranasally 2 times a day Active Multiple Vitamin - 1 cap(s) orally once a day; Duration: 30 day(s) Active levoFLOXacin 500 MG 1 tablet Orally Once a day; Duration: 10 day(s) 01/23/2025 Active Aspirin 81 81 MG 1 tablet Orally Once a day; Duration: 30 day(s) Active Prolia 60 MG/ML as directed Subcutan eous every 6 months Active Calcium 600 + Minerals 600-200 MG-UNIT 2 tab(s) orally once a day; Duration: 30 day(s) Active Olopatadine HCl 0.1 % 1 drop into affect ed eye Ophthalmic Twice a day Active Vital Signs Weight 192 lbs 01/23/2025 Blood pressure systolic 122 mm Hg 01/24/20 25 Blood pressure diastolic 70 mm Hg 025 Heart Rate 82 /min 01/23/2025 Height 64.50 in 01/23/2025 BMI 32.44 kg/m2 01/23/2025 Encounters Encounter Location Date Provider Diagnosis [facility] [address] [place] [id number] 01/23/2025 Samy Roberts Acute sinusitis J01.90 Assessments Encounter Date Diagnosis (ICD Code) Assessment Notes Treatment Notes Treatment Clinical Notes Section Notes 01/23/2025 Acute sinusitis (ICD-10 - J01.90) Plan Of Treatment Medication Medication Name Sig Start Date Stop Date Notes levoFLOXacin 500 MG 1 tablet Orally Once a day; Duration: 10 day(s) 01/23/2025 Next Appt Details Follow Up: prn, Reason: Progress Notes * JOSÉ MIGUEL CARTERB:1950 ( 74 yo F)Acc No.[id number]:01/23/2025 Progress Notes Patient: ISMAEL HENLEY Provider: Samy Roberts M.D. :1950 A ge:74 Y S ex:Female Date:01/23/2025 Address:[address] [place] [address] [id number] Subjective: * Chief Complaints: * 1 . Not feeling well. * HPI: E NT/respiratory: Pt states these symptoms stared 2 weeks ago. Pt was here Friday 01/19 and she is some worse and some better she states. 74 year old female presents with c/o cough s mall amount of white sputum. c/o nasal congestion a ll the time. c/o Short of Breath. c/o headache. c/o dizziness. c/o ringing in ear. Denies : sore throat. D enies : Fever. D enies : ear pain. D enies : Chest Pain. D enies : chest congestion. D enies : body aches. * ROS: D ERMATOLOGY: no R soto. [...] Epidural Steroid Injection 08/28/2010, Back surgery 01/30/2011, [facility] - Dr. Quezada 12/07/2011, Hernia Repair 02/23/2012, Negative Heart Cath 02/2013, Lt Total Knee Replacement 03/17/2013, Rt Total Knee Replacement 11/15/2013, [facility]-Lumbar Fusion (L3,L4,L5) - Dr. Gipson 06/2014, Gastric Sleeve 03/26/17, Lt Eye Cataract- Dr. Zaman 02/2019, T11-L5 spinal fusion, Dr. Wen quintero 04/05/2019, Rt Cataract 10/2019, Back Surgery/ Rods placed by Dr. Carver - 07/22/2022. * Hospitalization/Major Diagno stic Procedure: S vijay 1978 ,1995. * Family History: F ather: 64 yrs, [place]. M other: 69 yrs, [place]. P aternal [...] Inhalation every 4 hrs , Taking Zenpep 85927-38439 UNIT Capsule Delayed Release Particles 1 cap(s) Orally Three times a day , Taking Nystatin-Triamcinolone 108384-7.1 UNIT/GM Cream 1 application Externally Twice a [...] Hose MACHINE AND SUPPLIES as directed , Discontinued Cyclobenzaprine HCl 5 MG Tablet 1 tablet Orally twice a day , Discontinued ZyrTEC Allergy 10 MG Tablet 1 tab(s) orally once a day , Discontinued Xhance 93 MCG/ACT Exhaler Suspension 1 spray(s) in each nostril 2 times a day , Discontinued Montelukast Sodium 10 MG Tablet 1 tab(s) orally once a day , Discontinued Qvar RediHaler 40 MCG/ACT Aerosol Breath Activated 2 puff(s) inhaled 2 times a day , Medication List reviewed and reconciled with the patient * Allergies: A moxicillin, FABRICE Inhibitors: cough, Sulindac: chest tightness, Reglan: anxiety, Sulfa Antibiotics, Budesonide, Cefdinir: does not help, amLODIPine: swelling - Side Effects, Nabumetone: Headaches - Side Effects. Objective: * Vitals: W t: 192, Temp: 97.5, BP: 122/70, HR: 82, O2 Sat: 93% on ra, Nurse: pe, Ht: 64.50, BMI:32.44. * Examination: E NT/Respiratory: Ears: d iminished light reflex. N ose : m ild congestion. S inuses : T ken over left maxillary sinus. H eart : R RR, normal S1 S2, no murmurs. L ungs: c lear to auscultation bilaterally. Assessment: * Assessment: 1. A lea sinusitis - J01.90 (Primary) Plan: * Treatment: * Labs: * L ab: CBC Fingerstick (in house) (Collection Date & Time - 01/23/2025) Value Reference Range w bc 11.8 3.5 - 10 * l ym 23.9% 15 - 50 * m id 6.4% 2 - 15 * g ran 69.7% 35 - 80 * r bc 4.30 3.5 - 5.5 * h gb 11.9 11.5 - 16.5 * h ct 37.1 35 - 55 * m cv 86.2 75 - 100 * m ch 27.7 25 - 35 * m chc 32.1 31 - 38 * p lat 286 100 - 400 * Sara Thornton 01/23/2025 0 4:03:34 PM EDT > Provider reviewed results while patient in office. * Procedure Codes: G 2211 Complex e/[place], [address] CAPILLARY BLOOD DRAW, 04476 CBC WITH AUTO DIFF, 1036F TOBACCO NON-USER, G8783 BP SCR PRFRM RCMDD DEFIND SCR INTVL, G8752 MOST RECENT SYSTOLIC BP < 140MM HG, G8754 MOST RECENT DIASTOLIC BP < 90MM HG * Follow Up: p rn * Images: Billing Information: * Visit Code: 93293 Office Visit, Est Pt., Level 3. * Procedure Codes: G2211 Complex e/[place]. [address] CAPILLARY BLOOD DRAW. 87072 CBC WITH AUTO DIFF. 1036F TOBACCO NON-USER. G8783 BP SCR PRFRM RCMDD DEFIND SCR INTVL. G8752 MOST RECENT SYSTOLIC BP < 140MM HG. G8754 MOST RECENT DIASTOLIC BP < 90MM HG. * Electronic signature of Samy Roberts MD on 03/30/2025 at 10:17 AM EDT Sign off status: Pending * Provider: Samy Roberts M.D. Date: 0 01/23/2025 Generated for Rose varela/Aida/Jae on: 1 10:17 AM EDT History and Physical Notes * HPI (History of Present Illness) Category Sub-Category Detail Notes Category Not es ENT/respiratory sore throat ear pain Short of Breath Chest Pain cough small amount of whit e sputum Fever headache chest congestion nasal congestion all the time dizziness body aches ringing in ear Examination Category Sub-Category Detail Notes Category Not es ENT/Respiratory Sinuses : Tender over left maxillar y sinus Ears: diminished light ref james Heart : RRR, normal S1 S2, n o murmurs Lungs: clear to auscultatio n bilaterally Nose : mild congestion
--- OUTSIDE RECORDS SUMMARY | 2025-02-01 10:45 | XMS_ITS ---
Author Organization [facility] Address [address] [place] [id number] Care Team Providers Care Certified Surgical Tech/First Assistant Name Role Phone Samy Roberts Primary Care Provider [phone] Allergies Allergen (clinical drug ingredient) Drug/Non Drug [...] unavailable Sulfa Antibiotics Unknown Drug Allergy Active Reason For Referral Reason She is an establishe d patient with Percy at [facility] in [facility]. Needs referral to eval and treat for sciatica Diagnosis 1 Sciatica (M54.30) Referral Organization [facility] Referring Provider First Name Samy Villafana Referring [...] 300 mg TAKE ONE TABLET BY M OUTH EVERY DAY; Duration: 90 Active CareTouch CPAP [...] cap(s) orally once a day Active Nystatin-Triamcinolone 977168-4.1 UNIT/GM 1 application Externally Twice a day 04/28/2024 Active Zenpep 56555-80514 UNIT 1 cap(s) Orally Three times a [...] Problem Status W/U Status Risk Notes Problem Information temporarily unavailable Sciatica (M54.30) Active confirmed Vital Signs Weight 192.8 lbs 02/01/2025 Blood pressure systolic 120 mm Hg 02/02/20 25 Blood pressure diastolic 76 mm Hg 025 Heart Rate 88 /min 02/01/2025 Height 64.50 in 02/01/2025 BMI 32.58 kg/m2 02/01/2025 Encounters Encounter Location Date Provider Diagnosis [facility] [address] [facility] [address] [place], [place] [id number] 02/01/2025 R Broderick Roberts Sciatica M54.30 and Allergic rhinitis, unspecified J30.9 Assessments Encounter Date Diagnosis (ICD Code) Assessment Notes Treatment Notes Treatment Clinical Notes Section Notes 02/01/2025 Sciatica (ICD-10 - M54.30) 02/01/2025 Allergic rhinitis, unspecified (ICD-10 - J30.9) Plan Of Treatment Referrals Referral Date Details 02/01/2025 02/01/2025, She is a n established patient with Percy at [facility] in [facility]. Needs referral to eval and treat for sciatica, . Physical Therapy Next Appt Details Follow Up: prn, Reason: Medications Administered Medication Instructions Date of Administration Dosage Notes allergy 02/01/2025 0.25 mL allergy 02/01/2025 0.25 mL Progress Notes * JOSÉ MIGUEL CARTERB:1950 ( 74 yo F)Acc No.[id number]:02/01/2025 Progress Notes Patient: ISMAEL HENLEY Provider: Samy Roberts M.D. :1950 A ge:74 Y S ex:Female Date:02/01/2025 Address:[address] [place], [place] [phone] Subjective: * Chief Complaints: * 1 . [...] Replacement 03/17/2013, Rt Total Knee Replacement 11/15/2013, [facility]-Lumbar Fusion (L3,L4,L5) - Dr. Gipson 06/2014, Gastric Sleeve 03/26/17, Lt Eye Cataract- Dr. Zaman 02/2019, T11-L5 spinal fusion, Dr. Wen quintero 04/05/2019, Rt Cataract 10/2019, Back Surgery/ Rods placed by Dr. Carver - 07/22/2022. * Hospitalization/Major Diagno stic Procedure: S vijay 1978 ,1995. * Family History: F ather: 64 yrs, [place]. M other: 69 yrs, [place]. P aternal [...] Inhalation every 4 hrs , Taking Zenpep 47174-88161 UNIT Capsule Delayed Release Particles 1 cap(s) Orally Three times a day , Taking Nystatin-Triamcinolone 359506-1.1 UNIT/GM Cream 1 application Externally Twice a [...] G 2211 Complex e/[place], [address] IMMUNOTHERAPY INJECTIONS, 1036F TOBACCO NON-USER, G8783 BP SCR PRFRM RCMDD DEFIND SCR INTVL, G8752 MOST RECENT SYSTOLIC BP < 140MM HG, G8754 MOST RECENT DIASTOLIC BP < 90MM HG * Follow Up: p rn * Images: Billing Information: * Visit Code: 69579 Office Visit, Est Pt., Level 3. * Procedure Codes: G2211 Complex e/[place]. [address] IMMUNOTHERAPY INJECTIONS. 1036F TOBACCO NON-USER. G8783 BP SCR PRFRM RCMDD DEFIND SCR INTVL. G8752 MOST RECENT SYSTOLIC BP < 140MM HG. G8754 MOST RECENT DIASTOLIC BP < 90MM HG. * Electronic signature of Samy Roberts MD on 03/30/2025 at 10:18 AM EDT Sign off status: Pending * Provider: Samy Roberts M.D. Date: 0 02/01/2025 Generated for Rose varela/Aida/Aliyahsmitting on: 1 10:18 AM EDT History and [...] Referred Provider Not es 02/01/2025 Samy Roberts Physical Therapy, . She is an established patient with Percy at [facility] in [facility]. Needs referral to eval and treat for sciatica
--- OUTSIDE RECORDS SUMMARY | 2025-02-08 12:15 | XMS_ITS ---
Author Organization [facility] Address [address] [facility] [address] [place] [phone] Care Team Providers Care Learning Disabilities Teacher Name Role Phone Samy Roberts Primary Care Provider [phone] REASON FOR VISIT allergy shot Medications Medication [...] needed Inhalation every 4 hrs Active Zenpep 01657-94565 UNIT 1 cap(s) Orally Three times a day Active Nystatin-Triamcinolone 428771-6.1 UNIT/GM 1 application Externally Twice a day [...] Provider Diagnosis [facility] [address] [facility] [address] [place] [phone] 02/08/2025 Samy Roberts Allergic rhinitis J30.9 Assessments Encounter Date Diagnosis (ICD Code) Assessment Notes Treatment Notes Treatment Clinical Notes Section Notes 02/08/2025 Allergic rhinitis (ICD-10 - J30.9) Plan Of Treatment Next Appt Details Follow Up: as scheduled, Thelma son: Medications Administered Medication Instructions Date of Administration Dosage Notes allergy 02/08/2025 0.20 mL mix DP: right arm allergy 02/08/2025 0.20 mL mix RON: left arm Progress Notes * JOSÉ MIGUEL CARTERB:1950 ( 74 yo F)Acc No.[id number]:02/08/2025 Patient: Samy DARBY ISMAEL Provider: Samy Roberts M.D. :1950 A ge:74 Y S ex:Female Date:02/08/2025 Address:[address] [place], [place] [phone] Subjective: * Chief Complaints: * 1 . [...] Inhalation every 4 hrs , Taking Zenpep 69785-32729 UNIT Capsule Delayed Release Particles 1 cap(s) Orally Three times a day , Taking Nystatin-Triamcinolone 936251-7.1 UNIT/GM Cream 1 application Externally Twice a [...] Information: * Visit Code: * Procedure Codes: 29415 IMMUNOTHERAPY INJECTIONS. * Electronic signature of Samy Roberts MD on 03/30/2025 at 10:18 AM EDT Sign off status: Pending * Provider: Samy Roberts M.D. Date: 0 02/08/2025 Generated for Rose varela/Aida/Jae on: 10:18 AM EDT
--- OUTSIDE RECORDS SUMMARY | 2025-02-20 12:00 | XMS_ITS ---
[facility] Address [address] [place] [phone] Care Team Providers Care Animal Services Officer Name Role Phone Samy Roberts Primary Care [...] a day; Duration: 90 days Active Zenpep 19589-61243 UNIT 1 cap(s) Orally Three times a day Active Furosemide 20 MG 1 tablet Orally once daily; Duration: 90 days Active Nystatin-Triamcinolone 727790-4.1 UNIT/GM 1 application Externally Twice a day [...] 02/20/2025 Encounters Encounter Location Date Provider Diagnosis [facility] [address] [facility] [address] [place], [place] [address], [place] [phone] 02/20/2025 R Broderick Roberts Allergic rhinitis J30.9 and Acute sinusitis [...] mL extract: RON- LA Progress Notes * SADIA CARTERADOB:1950 ( 74 yo F)Acc No.[id number]:02/20/2025 Progress Notes Patient: ISMAEL HENLEY Provider: Samy Roberts M.D. :1950 A ge:74 Y S ex:Female Date:02/20/2025 Address:[address] [place], [place] [phone] Subjective: * Chief Complaints: * 1 . [...] Epidural Steroid Injection 08/28/2010, Back surgery 01/30/2011, [facility] - Dr. Quezada 12/07/2011, Hernia Repair 02/23/2012, Negative Heart Cath 02/2013, Lt Total Knee Replacement 03/17/2013, Rt Total Knee Replacement 11/15/2013, [facility]-Lumbar Fusion (L3,L4,L5) - Dr. Gipson 06/2014, Gastric Sleeve 03/26/17, Lt Eye Cataract- Dr. Zaman 02/2019, T11-L5 spinal fusion, Dr. Wen quintero 04/05/2019, Rt Cataract 10/2019, Back Surgery/ Rods placed by Dr. Carver - 07/22/2022. * Hospitalization/Major Diagno stic Procedure: S vijay 1978 ,1995. * Family History: F ather: 64 yrs, [place]. M other: 69 yrs, [place]. P aternal [...] Inhalation every 4 hrs , Taking Zenpep 40617-08865 UNIT Capsule Delayed Release Particles 1 cap(s) Orally Three times a day , Taking Nystatin-Triamcinolone 434251-1.1 UNIT/GM Cream 1 application Externally Twice a [...] G 2211 Complex e/[place], [address] CAPILLARY BLOOD DRAW, 37410 CBC WITH AUTO DIFF, 99490 IMMUNOTHERAPY INJECTIONS, 1036F TOBACCO NON-USER, G8783 BP SCR PRFRM RCMDD DEFIND SCR INTVL, 3074F SYST BP LT 130 MM HG, 3078F DIAST BP < 80 MM HG * Follow Up: p rn * Images: Billing Information: * Visit Code: 07088 Office Visit, Est Pt., Level 3. Modifiers: 25 * Procedure Codes: G2211 Complex e/[place]. [address] CAPILLARY BLOOD DRAW. 83564 CBC WITH AUTO DIFF. 76918 IMMUNOTHERAPY INJECTIONS. 1036F TOBACCO NON-USER. G8783 BP SCR PRFRM RCMDD DEFIND SCR INTVL. 3074F SYST BP LT 130 MM HG. 3078F DIAST BP < 80 MM HG. * Electronic signature of Samy Roberts MD on 03/30/2025 at 10:19 AM EDT Sign off status: Pending * Provider: Samy Roberts M.D. Date: 0 02/20/2025 Generated for Geovannyi ng/Aida/eTransmitting on: 1 10:19 AM EDT History and Physical Notes * [...]
--- OUTSIDE RECORDS SUMMARY | 2025-02-26 12:29 | XMS_ITS | Encounter Summary ---
Author Organization Healthcare Address [address] 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 denosumab (Prolia) 60 MG/ML injection Inject 1 [...] BY MOUTH AT BEDTIME DAILY DIRECTED 10/24/2021 Multiple Vitamin (multivitamin) tablet Take 1 tablet by mouth daily. olmesartan (BENIcar) 20 MG tablet 06/19/2024 olopatadine (Patanol) 0.1 % ophthalmic solution every 12 (twelve) hours. OLOPATADINE HCL OP 03/06/2024 omega-3 (Fish Oil) 1200 MG capsule 1 (one) time each day at the same time. omeprazole (PriLOSEC) [address] capsule Take 1 capsule by mouth daily. 08/23/2024 pancrelipase, Exn-Fido-Iogp, (Zenpep) 11579-59749 units capsule delayed-release particles capsule 3 (three) [...] by mouth daily. 30 capsule 5 09/03/2024 cetirizine (ZyrTEC) 10 MG tablet Take 1 tablet (10 mg) by mouth daily. 10/21/2021 montelukast (Singulair) 10 MG tablet Take 1 tablet (10 mg) by mouth nightly. 01/19/2022 5 documented as of this encounter Plan of Treatment Upcoming Encounters Date Type Department Care Team (Late st Contact Info) Description 03/21/2026 11:40 AM EDT Office Visit Professional [facility] Nephrology, Bone & Mineral Metabolism [address], [address] [place] [address] Edinson Reyes MD [address] [place] [address] documented as of this encounter [...] no evidence of hardware loosening or failure. Ugrv-kz-ynizzwhp right hip osteoarthrosis. CRITICAL RESULT: No. COMMUNICATION: [...] joints posterior fusion hardware is partially visualized. Mbmh-jc-agvwqomv osteoarthrosis of the right hip. Femoral head [...] sacroiliac joints posterior fusionhardware is partially visualized. Qlul-ed-qyovszml osteoarthrosis of theright hip. Femoral head is well-seated within the acetabulum. No acutefracture or dislocation.. IMPRESSION: Redemonstration of bilateral total knee arthroplasties in unchangedalignment with no hardware complications. Left total hip arthroplasty in unchanged alignment with no evidence ofhardware loosening or failure. Diio-lm-eptqoqur right hip osteoarthrosis. CRITICAL RESULT: No. COMMUNICATION: [...] no evidence of hardware loosening or failure. Luiu-ll-uxovlkyf right hip osteoarthrosis. CRITICAL RESULT: No. COMMUNICATION: [...] joints posterior fusion hardware is partially visualized. Wtcc-wf-bdbdruvj osteoarthrosis of the right hip. Femoral head [...] sacroiliac joints posterior fusionhardware is partially visualized. Afzu-wt-yijpdmcl osteoarthrosis of theright hip. Femoral head is well-seated within the acetabulum. No acutefracture or dislocation.. IMPRESSION: Redemonstration of bilateral total knee arthroplasties in unchangedalignment with no hardware complications. Left total hip arthroplasty in unchanged alignment with no evidence ofhardware loosening or failure. Rtga-du-mlonuvrq right hip osteoarthrosis. CRITICAL RESULT: No. COMMUNICATION: [...] no evidence of hardware loosening or failure. Ttnk-ye-wszbfnmw right hip osteoarthrosis. CRITICAL RESULT: No. COMMUNICATION: [...] joints posterior fusion hardware is partially visualized. Xunu-yl-popdcfou osteoarthrosis of the right hip. Femoral head [...] sacroiliac joints posterior fusionhardware is partially visualized. Mhqr-nn-qxpvitep osteoarthrosis of theright hip. Femoral head is well-seated within the acetabulum. No acutefracture or dislocation.. IMPRESSION: Redemonstration of bilateral total knee arthroplasties in unchangedalignment with no hardware complications. Left total hip arthroplasty in unchanged alignment with no evidence ofhardware loosening or failure. Skke-az-txiwhgsh right hip osteoarthrosis. CRITICAL RESULT: No. COMMUNICATION: Per this written report. By electronically signing this report, I, the attending physician, attlindathat I have personally reviewed the images/data for [...] documented as of this encounter Care Teams Preform Plate Maker Relationship Specialty Start Date End Date Gary Roberts MD [address] [place] [address] PCP - General 10/18/20 documented as of this encounter
--- OUTSIDE RECORDS SUMMARY | 2025-02-26 12:50 | XMS_ITS | Encounter Summary ---
Author Organization [facility] Address [address] [place] [address] Care Team Providers Care Animal Impersonator Name Role Phone Gary Roberts MD Primary Care Provider +1- [phone] Reason for Referral * Other Medical (Routine) - Pending Review Specialty Diagnoses / Procedures Referred By Contac t Referred To Contact Diagnoses Hip pain, bilateral Procedures Injection - Large Joint: bilateral greater trochanteric bursa Jaiden Fuentes MD [address] [address] Phone: tel: fax: Referral ID Status Reason Start Date Expiration Date V isits Requested Visits Authorized [id number] Pending Review 02/26/2025 08/28/2026 1 1 Reason for Visit * Reason Comments Follow-up Follow-up Follow-up Follow-up Encounter Details Date Type Department Care Team ([facility] st Contact Info) Description 02/26/2025 12:50 PM EDT Office Visit Medical Office Building Surgery Spine & Joint [address], [address] [place] [address] Jaiden Fuentes MD [address] [facility] [address] [place] [address] Hip pain, bilateral (Primary Dx) Social History Tobacco Use Types Packs/Day Years Used Date Smoking Tobacco: Never Passive Smoke Exposure: Never Smokeless Tobacco: Never Tobacco Cessation:Counseling Given: No 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 [...] drink first t figueroa in the morning (EYE-FITNESS MANAGEMENT DIRECTOR) to steady your nerves or to get [...] Sign Reading Time Taken Comments Blood Pressure 126/76 02/26/2025 12:58 PM EDT Pulse 77 02/26/2025 12:58 PM EDT Temperature - - Respiratory Rate 18 02/26/2025 12:58 PM EDT Oxygen Saturation 93% 02/26/2025 12:58 PM EDT Inhaled Oxygen Concentration - - Weight 87 kg (191 lb 12.8 oz) 02/26/2025 12:58 P M EDT Height 165.1 cm (5' 5 ) 02/26/2025 12:58 PM EDT Body Mass Index 31.92 02/26/2025 12:58 PM EDT documented in this encounter Miscellaneous Notes * Progress Notes - Hank Painting MD - 02/26/2025 12:50 PM EDTAssociated Order(s): Injection - Large Joint: bilateral greater trochanteric bursa Post-Procedure Diagnose(s): Hip pain, bilateral Subjective: Fani Mondragon is a 74 y.o. female who comes in today for evaluation of bilateral lower extremity pain. On the right side, she says that the pain radiates down her leg into the bottom of her foot. It is worse when she is using the accelerator a break in the car. She has a longstanding history of back issues in his had a fusion before. She has not discuss these with her spine doctors. She also states on the right side that she has pain over the lateral aspect of the hip. He has been present for about 6 months. It was not associated with an injury. She does not have pain in the right groin. On the left side she says that the pain is located over the lateral aspect of the hip just like it is on the right side. She does not have any radicular pain on the left. She had a overall denies numbnesstingling or weakness. She has been doing physical therapy and has not had much improvement. She cannot take anti-inflammatories because her solar thermal technician told her she should not. HPI Review of Systems Tobacco Use History[1] Allergies[2] Objective: BMI is Body mass index is 31.92 kg/m??. On examination of the bilateral lower extremities, she is tender to palpation over the greater trochanters bilaterally. It is mild. She is also tender over the proximal portion of the iliotibial band. On the right side, she has hip internal rotation to 25?? and external rotation to 35?? and there was no pain in the groin. She is tender to palpation over the adductors bilaterally. On the left sideshe is tender to palpation over the greater trochanter and she has symmetric internal and external rotation without pain. She has painless knee range of motion. There was no effusion. My independent interpretation of radiographic testing shows: Radiographs obtained today show well-appearing bilateral total knee arthroplasties without loosening or complication. Ulcer shows a left total hip arthroplasty in place without any complication. The hardware that is visualized in her lumbosacral spine is in good position without failure. Previous imaging shows: none viewed Assessment and plan: Hip pain, bilateral Orders Placed This Encounter Injection - Large Joint New Patient: XR Hip (AP Pelvis Standing with Enmanuel Marker / Frog Leg Lateral Standing) This is a 74-year-old female with atraumatic onset of 6 months of bilateral lateral hip pain. She says that the pain has not improved despite physical therapy. We discussed options for this includingcontinued therapy to focus on trochanteric bursitis, anti-inflammatories, ultimately an injection. She would like to proceed with an injection today. We will see how she does with this. A lot of the pain on the right side probably coming from her back in his seems like she has an S1 radiculopathy. The bilateral groin pain that is really over the proximal adductor compartment does not seem to be related to her hips and is more so tender to palpation over the muscles and subcutaneous tissues than anything deep. We will see her back as needed for any concerns. This problem is an undiagnosed new with uncertain prognosis problem with out progression. Minor procedure risk factors were discussed: (Injection site pain, infection, inflammation) and decision was made for procedure. Hank Painting MD PGY-5, Orthopaedic Surgery [facility] Patient ID: Fani Mondragon is a 74 y.o. female. Encounter Diagnosis Name Primary? Hip pain, bilateral Yes Injection - Large Joint: bilateral greater trochanteric bursa Indications: pain Details: 22 G needle, lateral approach Medications (Right): 20 mg bupivacaine 0.5 %; 40 mg lidocaine 1 %; 80 mg Kenalog-40 40 MG/ML Medications (Left): 20 mg bupivacaine 0.5 %; 40 mg lidocaine 1 %; 80 mg Kenalog- 40 40 MG/ML Outcome: tolerated well, no immediate complications Procedure, treatment alternatives, risks and benefits explained, specific risks discussed. Consent was given by the patient. Immediately prior to procedure a time out was called to verify the correctpatient, procedure, equipment, sales support engineer and site/side marked as required. Patient was prepped and draped in the usual sterile fashion. 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 [2] Allergies Allergen Reactions Amlodipine Swelling Budesonide Hallucinations, [...] Adhesive Rash * request cloth tape only* Cosigned by Jaiden Fuentes MD at 02/26/2025 3:03 PM EDT Associated attestation - Jaiden Fuentes MD - 02/26/2025 3:03 PM EDT I saw and evaluated the patient with the resident/fellow. I discussed the case with the resident/fellow and agree with the findings and plan as documented. I was present for the entirety of the procedure. documented in this encounter Plan of Treatment Upcoming Encounters Date Type Department Care Team (Late st Contact Info) Description 03/21/2026 11:40 AM EDT Office Visit [facility] Nephrology, Bone & Mineral Metabolism [address], [address] [place] [address] Edinson Reyes MD [address] [place] [address] documented as of this encounter Procedures Procedure Name Priority Date/Time Associated Diagnosis Comments FL ARTHROCENTESIS ASPIR&/INJ MAJOR JT/BURSA W/O US Routine 02/26/2025 12:50 PM EDT Hip pain, bilateral documented in this encounter Results * New Patient: XR Hip (AP Pelvis Standing with Enmanuel Marker / Frog Leg Lateral Standing) (02/26/2025 12:51 PM EDT) Anatomical Region Laterality Modality Hip, Pelvis Bilateral Digital Radiogra phy Impressions 02/26/2025 3:04 PM EDT Redemonstration of bilateral total knee arthroplasties in unchanged alignment with no hardware complications. Left total hip arthroplasty in unchanged alignment with no evidence of hardware loosening or failure. Numm-gk-xnrpniim right hip osteoarthrosis. CRITICAL RESULT: No. COMMUNICATION: [...] joints posterior fusion hardware is partially visualized. Ocfp-re-xhagimtd osteoarthrosis of the right hip. Femoral head [...] sacroiliac joints posterior fusionhardware is partially visualized. Yrey-gh-fwogskcl osteoarthrosis of theright hip. Femoral head is well-seated within the acetabulum. No acutefracture or dislocation.. IMPRESSION: Redemonstration of bilateral total knee arthroplasties in unchangedalignment with no hardware complications. Left total hip arthroplasty in unchanged alignment with no evidence ofhardware loosening or failure. Migj-lz-vbxqehwf right hip osteoarthrosis. CRITICAL RESULT: No. COMMUNICATION: Per this written report. By electronically signing this report, I, the attending physician, melva I have personally reviewed the images/data for the aboveexamination(s) and agree with the final edited report. Drafted by Braulio Thurman MD on 02/26/2025 1:10 PM Final report signed by Jaiden Bower on 02/26/2025 3:04 PM us Jaiden Fuentes MD IMG XR PROCEDURES Final Resul t * FL ARTHROCENTESIS ASPIR&/INJ MAJOR JT/BURSA W/O US (02/26/2025 12:50 PM EDT) Narrative Jaiden Fuentes MD - 02/26/2025 12:50 PM EDT Jaiden Fuentes MD 02/26/2025 3:03 PM Injection - Large Joint: bilateral greater trochanteric bursa Indications: pain Details: 22 G needle, lateral approach Medications (Right): 20 mg bupivacaine 0.5 %; 40 mg lidocaine 1 %; 80 mg Kenalog-40 40 MG/ML Medications (Left): 20 mg bupivacaine 0.5 %; 40 mg lidocaine 1 %; 80 mg Kenalog-40 40 MG/ML Outcome: tolerated well, no immediate complications Procedure, treatment alternatives, risks and benefits explained, specific risks discussed. Consent was given by the patient. Immediately prior to procedure a time out was called to verify the correct patient, procedure, equipment, sales support engineer and site/side marked as required. Patient was prepped and draped in the usual sterile fashion. us Jaiden Fuentes MD IN CLINIC/BEDSIDE ORDERABLES Final Result documented in this encounter Visit Diagnoses Diagnosis Hip pain, bilateral- Primary Pain in joint, pelvic region and thigh Left knee pain, unspecified chronicity Hip pain, bilateral Pain in joint, pelvic region and thigh Pain Generalized pain documented in this encounter Administered Medications Inactive Administered Medications - up to 3 most recent administrations Medication Order MAR Action Action Date Dose Rate Site bupivacaine (Marcaine) 0.5 % injection 20 mg 20 mg, Injection, Once PRN Procedure, 1 dose, Starting on Wed02/26/25 at 1250, Until Wed02/26/25 at 1250, RoutineIndications:Hip pain, bilateral Given 02/26/2025 12:50 PM EDT 20 mg bupivacaine (Marcaine) 0.5 % injection 20 mg 20 mg, Injection, Once PRN Procedure, 1 dose, Starting on Wed02/26/25 at 1250, Until Wed02/26/25 at 1250, RoutineIndications:Hip pain, bilateral Given 02/26/2025 12:50 PM EDT 20 mg lidocaine (Xylocaine) 1 % injection 40 mg 40 mg, Intra-articular, Once PRN Procedure, 1 dose, Starting on Wed02/26/25 at 1250, Until Wed02/26/25 at 1250, RoutineIndications:Hip pain, bilateral Given 02/26/2025 12:50 PM EDT 40 mg lidocaine (Xylocaine) 1 % injection 40 mg 40 mg, Intra-articular, Once PRN Procedure, 1 dose, Starting on Wed02/26/25 at 1250, Until Wed02/26/25 at 1250, RoutineIndications:Hip pain, bilateral Given 02/26/2025 12:50 PM EDT 40 mg triamcinolone acetonide (Kenalog-40) injection 80 mg 80 mg, Intra-articular, Once PRN Procedure, 1 dose, Starting on Wed02/26/25 at 1250, Until 9/22/25 at 1250, RoutineIndications:Hip pain, bilateral Given 02/26/2025 12:50 PM EDT 80 mg triamcinolone acetonide (Kenalog-40) injection 80 mg 80 mg, Intra-articular, Once PRN Procedure, 1 dose, Starting on Wed02/26/25 at 1250, Until Wed02/26/25 at 1250, RoutineIndications:Hip pain, bilateral Given 02/26/2025 12:50 PM EDT 80 mg documented in this encounter Additional Health Concerns Assessment Noted Time PHQ-9 Depression Total Score: 0 11/02/19 25 1:34 PM EDT A fall risk assessment has been complete d for the patient 02/26/2025 12:58 PM EDT A Body Mass Index follow-up plan has been documented for the patient 02/26/2025 3:03 PM EDT documented as of this encounter Care Teams Animal Impersonator Relationship Specialty Start Date End Date Gary Roberts MD [address] [place] [address] PCP - General 10/18/20 documented as of this encounter
--- OUTSIDE RECORDS SUMMARY | 2025-03-02 09:30 | XMS_ITS ---
Author Organization [facility] Address [address] [place] [id number] Care Team Providers Care [employer] French Teacher Name Role Phone Samy Roberts Primary Care Provider [phone] REASON FOR VISIT allergy shot Medications Medication [...] OUTH EVERY DAY; Duration: 90 Active Nystatin-Triamcinolone 899647-9.1 UNIT/GM 1 application Externally Twice a day 04/28/2024 Active Albuterol Sulfate HFA 108 (90 Base) MCG/ACT 1 puff as needed Inhalation every 4 hrs Active Zenpep 35527-08568 UNIT 1 cap(s) Orally Three times a [...] Active Encounters Encounter Location Date Provider Diagnosis [facility] [address] [facility] [address] [place], [place] [id number] 03/02/2025 Samy Roberts Allergic rhinitis, unspecified seasonality, unspecified trigger J30.9 Assessments Encounter Date Diagnosis (ICD Code) Assessment Notes Treatment Notes Treatment Clinical Notes Section Notes 03/02/2025 Allergic rhinitis, unspecified seasonality, unspecified trigger (ICD-10 - J30.9) Plan Of Treatment No Information Medications Administered Medication Instructions Date of Administration Dosage Notes allergy 03/02/2025 0.30 mL allergy 03/02/2025 0.30 mL Progress Notes * JOSÉ MIGUEL CARTERB:1950 ( 74 yo F)Acc No.[id number]:03/02/2025 Patient: ISMAEL HENLEY Provider: Samy Roberts M.D. :1950 A ge:74 Y S ex:Female Date:03/02/2025 Address:[address] [place], [place] [phone] Subjective: * Chief Complaints: * 1 . [...] Inhalation every 4 hrs , Taking Zenpep 03363-90860 UNIT Capsule Delayed Release Particles 1 cap(s) Orally Three times a day , Taking Nystatin-Triamcinolone 258675-1.1 UNIT/GM Cream 1 application Externally Twice a [...] Information: * Visit Code: * Procedure Codes: 40671 IMMUNOTHERAPY INJECTIONS. * Electronic signature of Samy Roberts MD on 03/30/2025 at 10:18 AM EDT Sign off status: Pending * Provider: Samy Roberts M.D. Date: 0 03/02/2025 Generated for Rose varela/Aida/Jae on: 10:18 AM EDT
--- OUTSIDE RECORDS SUMMARY | 2025-03-06 10:30 | XMS_ITS ---
Author Organization [facility] Address [address] [place] [id number] Care Team Providers Care Transit Planning Manager Name Role Phone Samy Roberts Primary Care [...] once daily; Duration: 90 days Active Nystatin-Triamcinolone 985183-8.1 UNIT/GM 1 application Externally Twice a day 04/28/2024 Active Zenpep 13725-59907 UNIT 1 cap(s) Orally Three times a [...] Status Risk Notes Problem Information temporarily unavailable Leukocytosis (D72.829) Active confirmed Vital Signs Weight 191.4 lbs 03/06/2025 Blood pressure systolic 100 mm Hg 03/06/20 25 Blood pressure diastolic 60 mm Hg 025 Heart Rate 90 /min 03/06/2025 Height 64.50 in 03/06/2025 BMI 32.34 kg/m2 03/06/2025 Encounters Encounter Location Date Provider Diagnosis [facility] [address] [place] [id number] 03/06/2025 Samy Roberts Leukocytosis D72.829 ; Cough [...] * SADIA CARTERADOB:1950 ( 74 yo F)Acc No.[id number]:03/06/2025 Progress Notes Patient: ISMAEL HENLEY Provider: Samy Roberts M.D. :1950 A ge:74 Y S ex:Female Date:03/06/2025 Address:[address] [place], [place] [address] Subjective: * Chief Complaints: * 1 . [...] Replacement 03/17/2013, Rt Total Knee Replacement 11/15/2013, [facility]-Lumbar Fusion (L3,L4,L5) - Dr. Gipson 06/2014, Gastric Sleeve 03/26/17, Lt Eye Cataract- Dr. Zaman 02/2019, T11-L5 spinal fusion, Dr. Wen quintero 04/05/2019, Rt Cataract 10/2019, Back Surgery/ Rods placed by Dr. Carver - 07/22/2022. * Hospitalization/Major Diagno stic Procedure: S vijay 1978 ,1995. * Family History: F ather: 64 yrs, [place]. M other: 69 yrs, [place]. P aternal [...] Inhalation every 4 hrs , Taking Zenpep 27472-13903 UNIT Capsule Delayed Release Particles 1 cap(s) Orally Three times a day , Taking Nystatin-Triamcinolone 177675-4.1 UNIT/GM Cream 1 application Externally Twice a [...] 90, O2 Sat: 94% on ra, Nurse: pe, Ht: 64.50, BMI:32.34. * Examination: G eneral [...] 312 100 - 400 * Cira Sears L 03/06/2025 03 :01:49 PM EDT > Provider reviewed results while patient in office. * Procedure Codes: G 2211 Complex e/[place], [address] CBC WITH AUTO DIFF, 59502 GLUCOSE TEST, 15318 CAPILLARY BLOOD DRAW * Follow Up: p rn * Images: Billing Information: * Visit Code: 21801 Office Visit, Est Pt., Level 3. * Procedure Codes: G2211 Complex e/[place]. [address] CBC WITH AUTO DIFF. 87281 GLUCOSE TEST. 16955 CAPILLARY BLOOD DRAW. * Electronic signature of Samy Roberts MD on 03/30/2025 at 10:19 AM EDT Sign off status: Pending * Provider: Samy Roberts M.D. Date: 0 03/06/2025 Generated for Printi avery/Aida/eTransmitting on: 1 10:19 AM EDT History and Physical Notes * Examination Category Sub-Category Detail Notes Category Not es General Examination She come s in by wheelchair accompanied by her . She appears in no distress. HEENT is unremarkable. Neck is supple with no masses or bruits. Lungs are clear to auscultation. Heart is regular with no murmurs. Extremities no edema.
--- OUTSIDE RECORDS SUMMARY | 2025-03-19 14:10 | XMS_ITS | Encounter Summary ---
[facility] Address [address] [place] [address] Care Team Providers Care Boat Dock Operator Name Role Phone Gary Roberts MD Primary Care Provider Reason for Referral * Diagnostic Imaging (Routine) - Authorized Specialty Diagnoses / Procedures Referred By Contac t Referred To Contact Radiology Diagnoses Encounter for screening mammogram for breast cancer Procedures Mammo Screening Digital Tomosynthesis Bilateral With CAD Martha Hutchinson MD [address] [place] [address] Phone: tel: fax: [facility] [address] [place] [address] Phone: tel: Referral ID Status Reason Start Date Expiration Date V isits Requested Visits Authorized [id number] Authorized 03/19/2025 06/18/2026 1 1 Reason for Visit * Reason Comments Gynecologic Exam Annual, pt c/o bladd er leaking with bending over. Encounter Details Date Type Department Care Team (Late st Contact Info) Description 03/19/2025 2:10 PM EDT Office Visit [facility] [address] [place] [phone] Martha Hutchinson MD [address] [place] [address] Women's annual routine gynecological examination (Primary Dx); [...] of sciatica and drop foot managed by pairer odds. She also reports a history of a [...] of the external genitalia including Bartholin's and [place]'s glands. : urethral meatus normal; urethra normal: [...] Medications Ordered This Visit Medications nystatin (MYCOSTATIN) 749859 UNIT/GM powder Sig: Apply topically to the appropriate area as directed 2 (Two) Times a Day. For 14 days or until symptom resolution Dispense: 30 g Refill: 3 Patient or patient patient care representative verbalized consent for the use of Ambient Listening during the visit with Martha Hutchinson MD for chart documentation. 03/19/2025 15:53 EDT This note was electronically signed. Martha Hutchinson MD March 19, 2025 documented in this encounter Plan of Treatment Upcoming Encounters Date Type Department Care Team (Late st Contact Info) Description 03/28/2026 11:10 AM EDT Office Visit [facility] [address] [phone] Martha Hutchinson MD [address] [address] Scheduled Orders Name Type Priority Associated Diagnoses Orde r Schedule Mammo Screening Digital Tomosynthesis Bilateral With CAD Imaging Routine Encounter for screening mammogram for breast cancer Expected: 09/15/2025, Expires: 03/19/2026 documented as of this encounter Visit Diagnoses Diagnosis Women's annual routine gynecological examination- Primary Encounter for screening mammogram for breast cancer Vaginal atrophy Postmenopausal atrophic vaginitis documented in this encounter Care Teams Boat Dock Operator Relationship Specialty Start Date End Date Gary Roberts MD [address] [place] [facility] [address] [facility] [address] [place] [id number] PCP - General 11/11/15 documented as of this encounter
--- OUTSIDE RECORDS SUMMARY | 2025-03-20 11:30 | XMS_ITS ---
Author Organization [facility] Address [address] [place] [id number] Care Team Providers Care Sand Mixer Operator Name Role Phone Samy Roberts Primary Care Provider [phone] Allergies Allergen (clinical drug ingredient) Drug/Non Drug [...] growth Performing Lab: Notes/Report: Test performed by [facility], [address] , [address], [place] [address] Eddie Rose MD, Pack Puller CLIA: [id number] Specimen Source Urine - Void Culture, Urine [...] needed Inhalation every 4 hrs Active Zenpep 47946-12653 UNIT 1 cap(s) Orally Three times a day Active Nystatin-Triamcinolone 195297-3.1 UNIT/GM 1 application Externally Twice a day [...] 03/20/2025 Encounters Encounter Location Date Provider Diagnosis [facility] [address] [place], [place] [id number] 03/20/2025 Samy Roberts Leucocytosis D72.829 ; Allergic [...] mL mix RON: LA Progress Notes * SADIA CARTERLEAB:1950 ( 74 yo F)Acc No.[id number]:03/20/2025 Progress Notes Patient: ISMAEL HENLEY Provider: Samy Roberts M.D. :1950 A ge:74 Y S ex:Female Date:03/20/2025 Address[id number] Subjective: * Chief Complaints: * 1 . [...] Replacement 03/17/2013, Rt Total Knee Replacement 11/15/2013, [facility]-Lumbar Fusion (L3,L4,L5) - Dr. Gipson 06/2014, Gastric Sleeve 03/26/17, Lt Eye Cataract- Dr. Zaman 02/2019, T11-L5 spinal fusion, Dr. Wen quintero 04/05/2019, Rt Cataract 10/2019, Back Surgery/ Rods placed by Dr. Carver - 07/22/2022. * Hospitalization/Major Diagno stic Procedure: Angelique linares 1978 ,1995. * Family History: F ather: 64 yrs, [place]. M other: 69 yrs, [place]. P aternal [...] Inhalation every 4 hrs , Taking Zenpep 70448-95368 UNIT Capsule Delayed Release Particles 1 cap(s) Orally Three times a day , Taking Nystatin-Triamcinolone 477739-9.1 UNIT/GM Cream 1 application Externally Twice a [...] Temp: 97.5, BP: 126/62, HR: 64, Nurse: pe, Ht: 64.50, BMI:32.31. * Examination: E NT/Respiratory: [...] Source Urine - Void - * Samy Roberts 03/23/2025 10:24:55 PM EDT > reviewed Notes: [...] p lat 283 100 - 400 * Cira Sears 03/20/2025 0 4:23:41 PM EDT > Provider reviewed results while patient in office. * Procedure Codes: 3 6416 CAPILLARY BLOOD DRAW, 78388 CBC WITH AUTO DIFF, 45428 Urinalysis, no micro, 33647 IMMUNOTHERAPY, ONE INJECTION * Follow Up: 3 Months * Images: Billing Information: * Visit Code: 41142 Office Visit, Est Pt., Level 4. * Procedure Codes: 64191 CAPILLARY BLOOD DRAW. 31481 CBC WITH AUTO DIFF. 35170 Urinalysis, no micro. 68431 IMMUNOTHERAPY, ONE INJECTION. * Electronic signature of Samy Roberts MD on 03/30/2025 at 10:19 AM EDT Sign off status: Pending * Provider: Samy Roberts M.D. Date: Generated for Printi ng/Faxing/eTransmitting on: 10:19 AM EDT History and Physical Notes [...]
--- OUTSIDE RECORDS SUMMARY | 2025-03-28 11:00 | XMS_ITS | Encounter Summary ---
Author Organization [facility] Address [address] [place] [address] Care Team Providers Care Business Solutions Architect Name Role Phone Gary Roberts MD Primary Care Provider [phone]- [phone] Reason for Referral * Consultation (Routine) - Authorized Specialty Diagnoses / Procedures Referred By Contac t Referred To Contact Diagnoses Age-related osteoporosis without current pathological fracture Eric Barrientos MD [address] [place] [address] Phone: tel: fax: Referral ID Status Reason Start Date Expiration Date V isits Requested Visits Authorized [id number] Authorized 03/28/2025 09/27/2026 1 1 Reason for Visit * Reason Comments Follow-up Osteoporosis Encounter Details Date Type Department Care Team (Latest Contact Info) Description 03/28/2025 11:00 AM EDT Pharmacist Visit [facility] [address], [address] [place] [address] Chapo Santoro, PharmD [address] [place] [address] Age-related osteoporosis without current pathological [...] drink first t figueroa in the morning (EYE-PHARMACEUTICAL WORKER) to steady your nerves or to get [...] Miscellaneous Notes * Patient Instructions - Chapo Santoro, PharmD - 03/28/2025 11:00 AM EDT Prolia now. Labs 2 weeks after dose to check calcium. Follow up in 7 months with labs and DXA with provider documented in this encounter Plan of Treatment Upcoming Encounters Date Type Department Care Team (Late st Contact Info) Description 03/21/2026 11:40 AM EDT Office Visit [facility] Nephrology, Bone & Mineral Metabolism [address] [facility], [address] [place] [address] Edinson Reyes MD [address] [place] [address] Scheduled Orders Name Type Priority Associated Diagnoses [...] as of this encounter Care Teams Business Solutions Architect Relationship Specialty Start Date End Date Gary Roberts MD [address] [place] [address] PCP - General 10/18/20 documented as of this encounter
--- OUTSIDE RECORDS SUMMARY | 2025-03-29 10:40 | XMS_ITS | Encounter Summary ---
Author Organization [facility] Address [address] [place] [address] Care Team Providers Care Paranormal Investigator Name Role Phone Gary Roberts MD Primary Care Provider +1- [phone] Reason for Referral * Consultation (Routine) - Authorized Specialty Diagnoses / Procedures Referred By Contac t Referred To Contact Diagnoses Stage 3a chronic kidney disease (CMS/HCC) Edinson Reyes MD [address] [place] [address] Phone: tel: fax: Referral ID Status Reason Start Date Expiration Date V isits Requested Visits Authorized [id number] Authorized 03/29/2025 09/28/2026 1 1 Reason for Visit * Reason Comments Follow-up Encounter Details Date Type Department Care Team ([facility] Contact Info) Description 03/29/2025 10:40 AM EDT Office Visit [facility] [place] Nephrology, Bone & Mineral Metabolism [address], [address] [place] [address] Edinson Reyes MD [address] [place] [address] Acute kidney injury superimposed on [...] drink first t figueroa in the morning (EYE-VIDEO ARCADE MANAGER) to steady your nerves or to [...] 600-200 MG- UNIT tablet Every 24 hours Kheolcf-Crgkehkud-Nzqxcrm D (CALCIUM 1200+D3 PO) 1 tablet, Daily [...] hours omeprazole (PRILOSEC) 40 mg, Daily pancrelipase, Dvu-Beuc-Wfyr, (Zenpep) 66089-69906 units capsule delayed-release particles capsule 3times daily [...] Expiration Date: 03/29/2026 [facility]: Immediate Urinalysis with reflex microscopic (Culture NOT Included) Standing Status: Future Expected Date: 03/29/2026 Expiration Date: 03/29/2026 Release [facility]: Immediate Protein, Random, Urine with Creatinine Standing Status: Future Expected Date: 03/29/2026 Expiration Date: 03/29/2026 Release to [facility]: Immediate Creatinine, Random, Urine Standing Status: Future Expected Date: 03/29/2026 Expiration Date: 03/29/2026 Release to [facility]: Immediate CBC W/O Differential Standing Status: Future Expected Date: 03/29/2026 Expiration Date: 03/29/2026 Release to [facility]: Immediate Cystatin C Standing Status: Future Expected Date: 03/29/2026 Expiration Date: 09/30/2026 [facility] [[facility]] Follow Up Nephrology Standing Status: Future Expected Date: 03/29/2026 Expiration Date: 04/29/2026 Referral Priority: Routine Referral Type: Consultation Number of Visits Requested: 1 [1] Past Medical History: Diagnosis Date Anemia Most of my life Asthma Cataract Removed in 2018 & 2019 Chronic pain disorder over 20 years ago Depression 2012 Flexion contractures October 2018 GERD (gastroesophageal reflux disease) approx 1990 Gout 04/2021 Headache 1969 Hypertension 10 + years ago Joint pain 1989 Leg pain 2011 Low back pain 2012 Lumbosacral disc disease 2011 Neck pain 11/05/2021 Neuropathic pain 06/07/2002 Obesity Adult life CHER on CPAP uses cpap. Osteoarthritis 2010 Peripheral neuropathy 06/07/1999 Scoliosis 2018 Seizures (CMS/HCC) 1978 Spinal stenosis 2010 TMJ dysfunction 1994 [...] Description 03/21/2026 11:40 AM EDT Office Visit [facility] [place] Nephrology, Bone & Mineral Metabolism [address], [address] [place] [address] Edinson Reyes MD [address] [place] [phone] Scheduled Orders Name Type Priority Associated Diagnoses Orde r Schedule Renal Function Panel, Plasma Lab Routine Stage 3a chronic kidney disease ([facility]/HCC) Expected: 03/29/2026, Expires: 03/29/2026 Urinalysis with reflex microscopic (Culture NOT Included) Lab Routine Stage 3a chronic kidney disease ([facility]/HCC) Expected: 03/29/2026, Expires: 03/29/2026 Protein, Random, Urine with Creatinine Lab Routine Stage 3a chronic kidney disease ([facility]/HCC) Expected: 03/29/2026, Expires: 03/29/2026 Creatinine, Random, [...] documented as of this encounter Care Teams Paranormal Investigator Relationship Specialty Start Date End Date Gary Roberts MD [address] [place] [address] PCP - General 10/18/20 documented as of this encounter
--- OUTSIDE RECORDS SUMMARY | 2025-03-30 10:17 | XMS_ITS | Encounter Summary ---
[facility] Address [address] [place] [id number] Care Team Providers Care Shop Tech Name Role Phone Gary Roberts MD Primary Care Provider Encounter Details Date Type Department Care Team (Latest Contact Info) Description 03/19/2025 Travel Social History Tobacco Use Types Packs/Day [...] PM EDT documented as of this encounter Plan of Treatment Upcoming Encounters Date Type Department Care Team (Late st Contact Info) Description 03/28/2026 11:10 AM EDT Office Visit [facility] GYNECOLOGY [address] [facility] [address] [place] [phone] Martha Hutchinson MD [address] [facility] [address] [place] [address] documented as of this encounter Visit Diagnoses Not on filedocumented in this encounter Care Teams Shop Tech Relationship Specialty Start Date End Date Gary Roberts MD [address] [facility] [address] [place] [address] PCP - General 11/11/15 documented as of this encounter
--- OUTSIDE RECORDS SUMMARY | 2025-03-30 10:17 | XMS_ITS | Encounter Summary ---
Author Organization [facility] Address [address] [place] [address] Care Team Providers Care Magazine Designer Name Role Phone Gary Roberts MD Primary Care Provider +1- [phone] Encounter Details Date Type Department Care Team ([facility] st Contact Info) Description 03/20/2025 Telephone [facility] Mineral Metabolism [address] [facility], [address] [place] [address] Kalia Sanz Social History Tobacco Use Types Packs/Day Years [...] drink first t figueroa in the morning (EYE-PROJECT INSPECTOR) to steady your nerves or to [...] encounter Miscellaneous Notes * Telephone Encounter - Kalia Sanz - 03/20/2025 2:51 PM EDT Called pt regarding labs, pt states she did labs last at [facility] documented in this encounter Plan of Treatment Upcoming Encounters Date Type Department Care Team (Late st Contact Info) Description 03/21/2026 11:40 AM EDT Office Visit [facility] Nephrology, Bone & Mineral Metabolism [address] [facility], [address] [place] [phone] Edinson Reyes MD [address] [place] [phone] documented as of this encounter Visit Diagnoses [...] as of this encounter Care Teams Magazine Designer Relationship Specialty Start Date End Date Gary Roberts MD [address] [place] [address] PCP - General 10/18/20 documented as of this encounter
--- OUTSIDE RECORDS SUMMARY | 2025-03-30 10:17 | XMS_ITS | Encounter Summary ---
[facility] [address] [place] [address] Care Team Providers Care Field Artillery Cannoneer Name Role Phone Gary Roberts MD Primary Care Provider Reason for Visit * Reason Onset Date Comments Med Refill 03/13/2025 Encounter Details Date Type Department Care Team (Late st Contact Info) Description 03/13/2025 Telephone [facility] GYNECOLOGY [address] [place] [phone] Martha Hutchinson MD [address] [place] [address] Med Refill Social History Tobacco Use Types Packs/Day Years [...] PM EDT documented as of this encounter Miscellaneous Notes * Telephone Encounter - Ann Waterman MA - 03/13/2025 2:24 PM EDT Pt informed and stated understanding. * Telephone Encounter - Ann Waterman MA - 03/13/2025 2:24 PM EDT ----- Message from Martha Hutchinson sent at 03/13/2025 2:19 PM EDT ----- Requested rx for Vagifem sent to listed pharmacy. Martha Hutchinson MD ----- Message ----- From: Shelly Rojas Sent: 03/13/2025 1:31 PM EDT To: Martha Hutchinson MD documented in this encounter Plan of Treatment Upcoming Encounters Date Type Department Care Team (Late st Contact Info) Description 03/28/2026 11:10 AM EDT Office Visit [facility] GYNECOLOGY [address] [address] Martha Hutchinson MD [address] [address] documented as of this encounter Visit Diagnoses Not on filedocumented in this encounter Care Teams Field Artillery Cannoneer Relationship Specialty Start Date End Date Gary Roberts MD [address] [facility] [address] [facility] 2 [place] [address] PCP - General 11/11/15 documented as of this encounter
--- OUTSIDE RECORDS SUMMARY | 2025-03-30 10:17 | XMS_ITS | Clinical Summary ---
Author Organization [facility] ([place], [place] Address [address] [place] [address] Care Team Providers Care Scoop Operator Name Role Phone Gary Roberts MD Primary Care Provider +1- [phone] Allergies Active Allergy Reactions Criticality Noted Date [...] capsule (0.25 mcg total) by mouth daily. Active Social History Tobacco Use Types Packs/Day [...] Date Delfin rded Speak language other than [place]ese at home Not on file 06/18/2023 Want [...] Description 12/19/2025 1:00 PM EDT Office Visit [facility] Bariatric Services [address] [place] [address] Shahida Orellana MD [address] [place] [address] Health Maintenance Due Date Last [...] 10/26 Pneumococcal 50+ years Completed 04/20/2023, 2016 [place] [facility] [place] [id number] [facility] MEDICARE ADVANTAGE Care Teams Scoop Operator Relationship Specialty Start Date End Date Gary Roberts MD [address] [place] [address] PCP - General Family Medicine 11/16/22
--- OUTSIDE RECORDS SUMMARY | 2025-03-30 10:17 | XMS_ITS | Encounter Summary ---
Author Organization [facility] Address [address] [place] [address] Care Team Providers Care Manager Dialysis Name Role Phone Gary Roberts MD Primary Care Provider +1- [phone] Encounter Details Date Type Department Care Team ([facility] st Contact Info) Description 03/13/2025 Telephone [facility] [address] [facility], [address] [place] [address] Kalia Sanz Social History Tobacco [...] drink first t figueroa in the morning (EYE-CHICK ROOM SUPERVISOR) to steady your nerves or to get [...] * Telephone Encounter - Kalia Sanz - 03/13/2025 3:35 PM EDT Called pt regarding labs, pt states she wants labs fax to [facility], pt states diana try to go this week documented in this encounter Plan of Treatment Upcoming Encounters Date Type Department Care Team (Late st Contact Info) Description 03/21/2026 11:40 AM EDT Office Visit [facility] Nephrology, Bone & Mineral Metabolism [address] [facility], [address] [place] [address] Edinson Reyes MD [address] [place] [phone] documented as of this encounter Visit Diagnoses [...] documented as of this encounter Care Teams Manager Dialysis Relationship Specialty Start Date End Date Gary Roberts MD [address] [place] [address] PCP - General 10/18/20 documented as of this encounter
--- OUTSIDE RECORDS SUMMARY | 2025-03-30 10:17 | XMS_ITS | Referral Summary ---
Author Organization [employer] ([place], [place], [place], [place]) Address [address] [place] [address] Care Team Providers Care Wood Tile Installation Helper Name Role Phone Gary Roberts MD Primary Care Provider +1- [phone] Allergies Active Allergy Reactions Criticality Noted Date [...] Date Delfin rded Speak language other than [place] Leonean at home Not on file 06/18/2023 Want [...] Description 12/19/2025 1:00 PM EDT Office Visit [facility] Bariatric Services [address] [place] [address] Shahida Orellana MD [address] [place] [phone] Insurance [facility] MEDICARE ADVANTAGE Care Teams Wood Tile Installation Helper Relationship Specialty Start Date End Date Gary Roberts MD [address] [place] [address] PCP - General Family Medicine 11/16/22
--- OUTSIDE RECORDS SUMMARY | 2025-03-30 10:18 | XMS_ITS | Encounter Summary ---
Author Organization [facility] Address [address] [place] [address] Care Team Providers Care Liner Installer Name Role Phone Gary Roberts MD Primary Care Provider +1- [phone] Reason for Visit * Reason Onset Date Comments Med Refill 03/12/2025 Encounter Details Date Type Department Care Team (Late st Contact Info) Description 03/12/2025 Refill [facility] [address], [address] [place] [address] Eric Barrientos MD [address] [place] [address] Age-related osteoporosis without current pathological [...] drink first t figueroa in the morning (EYE-ART OBJECTS REPAIRER) to steady your nerves or to [...] Description 03/21/2026 11:40 AM EDT Office Visit [facility] Nephrology, Bone & Mineral Metabolism [address] [facility], [address] [place] [address] Edinson Reyes MD [address] [place] [phone] documented as of this encounter Visit [...] documented as of this encounter Care Teams Liner Installer Relationship Specialty Start Date End Date Gary Roberts MD [address] [place] [address] PCP - General 10/18/20 documented as of this encounter
--- OUTSIDE RECORDS SUMMARY | 2025-03-30 10:18 | XMS_ITS | Clinical Summary ---
Author Organization [facility] Address [address] [place] [address] Care Team Providers Care Tag And Label Cutter Name Role Phone Gary Robetrs MD Primary Care Provider [phone] Allergies Active Allergy Reactions Criticality Noted Date [...] * request cloth tape only* Medications pancrelipase, Tts-Tfuh-Waeu, (Zenpep) 19688-98093 units capsule delayed-release particles capsule 3 (three) times a day with meals. 03/15/20 17 Active allopurinol (Zyloprim) 300 MG tablet 1 (one) time each day. 05/03/20 10 Active estradiol (Vagifem) 10 MCG tablet vaginal tablet 3 times a week 11/15/19 19 Active gabapentin (Neurontin) 100 MG capsule 4 (four) times a day. Active azelastine (Astelin) 0.1 % nasal spray INSTILL 2 SPRAYS IN EACH NOSTRIL TWICE DAILY 06/11/19 22 Active Keppra XR 500 MG 24 hr tablet TAKE ONE TABLET BY MOUTH IN THE MORNING & TAKE 4 TABLETS BY MOUTH AT BEDTIME DAILY DIRECTED 10/25/19 22 Active rosuvastatin (Crestor) 10 MG tablet Take 1 tablet (10 mg) by mouth daily. Active Calcium-Magnesi um-Vitamin D (CALCIUM 1200+D3 PO) Take 1 tablet [...] hours if needed for pain. 40 tablet 07/25/19 23 Active denosumab (Prolia) 60 MG/ML injection Inject 1 mL (60 mg) under the skin 1 (one) time. Active albuterol 108 (90 Base) MCG/ACT inhaler INHALE TWO PUFFS BY MOUTH EVERY 4 TO 6 HOURS FOR SHORTNESS OF BREATH, WHEEZING, CHEST TIGHTNESS, OR COUGHING 06/02/20 23 Active fluticasone (Flonase) 50 MCG/ACT nasal spray 03/06/20 24 Active fluticasone (Flovent) 110 MCG/ACT inhaler 06/19/19 25 Active furosemide (Lasix) 20 MG tablet Take 1 tablet (20 mg) by mouth daily as needed. 10/11/19 24 Active Xiidra 5 % solution instill 1 drop IN EACH EYE EVERY TWELVE HOURS Active olmesartan (BENIcar) 20 MG tablet 06/19/19 25 Active omega-3 (Fish Oil) 1200 MG capsule 1 (one) time each day at the same time. Active olopatadine (Patanol) 0.1 % ophthalmic solution every 12 (twelve) hours. Active aspirin 81 MG EC tablet Take 1 tablet by mouth Daily. Active omeprazole (PriLOSEC) [address] capsule Take 1 capsule by mouth daily. 08/24/19 25 Active OLOPATADINE HCL OP 03/06/20 24 Active doxycycline (Vibramycin) 100 MG capsule TAKE ONE CAPSULE BY MOUTH TWICE DAILY -- FINISH ALL MEDICINE -- 02/21/20 25 Active calcium citrate 600 mg and vitamin D3 (Citrical & Minerals + Vit D) 600-200 MG-UNIT tablet 1 (one) time each day at the same time. Active calcitriol (Rocaltrol) 0.25 MCG capsuleIndicati ons:Age-related osteoporosis without current pathological fracture Take 1 capsule by mouth daily. 30 capsule 03/13/20 25 026 Active cetirizine (ZyrTEC) 10 MG tablet Take 1 tablet (10 mg) by mouth daily. 10/22/19 22 025 Discontinued montelukast (Singulair) 10 MG tablet Take 1 tablet (10 mg) by mouth nightly. 01/20/20 22 025 Discontinued calcitriol (Rocaltrol) 0.25 MCG capsuleIndicati ons:Age-related osteoporosis without current pathological fracture Take 1 capsule by mouth daily. 30 capsule 5 09/04/19 25 025 Discontinued(Re order) Active Problems Problem Noted Date Diagnosed Date Stage 3a chronic kidney disease 08/25/2024 Fusion of spine of thoracolumbar region 08/09/19 25 Exocrine pancreatic insufficiency 05/04/2023 Fusion of lumbosacral spine 07/22/2022 Age-related osteoporosis wit hout current pathological fracture 04/23/2022 Seizures 04/15/2022 GERD (gastroesophageal reflux disease) Spondylolisthesis, thoracic region 01/29/2022 Neurogenic claudication 01/29/2022 Overview (01/29/2022): Added automatically from request for surgery [id number] Pseudarthrosis after fusion or arthrodesis 01/29 S/P [...] Encounters Date Type Department Care Team Description 03/29/2025 10:40 AM EDT Office Visit [facility] Nephrology, Bone & Mineral Metabolism [address], [address] [place] [address] Edinson Reyes MD Acute kidney injury superimposed on CKD (Primary Dx); Stage 3a chronic kidney disease (CMS/HCC); Essential hypertension; Hyperuricemia; Chronic kidney disease-mineral and bone disorder; Hypervolemia, unspecified hypervolemia type 03/29/2025 Travel 03/28/2025 11:00 AM EDT Pharmacist Visit [facility] Bone & Mineral Metabolism [address], [address] [place] [address] Chapo Santoro, PharmD Age-related osteoporosis without current pathological fracture (Primary Dx) 03/28/2025 Travel 03/20/2025 Telephone [facility] Bone & Mineral Metabolism [address], [address] [place] [address] Kalia Sanz 03/13/2025 Telephone [facility] Bone & Mineral Metabolism [address], [address] [place] [address] Kalia Sanz 03/12/2025 Refill [facility] Bone & Mineral Metabolism [address], [address] [place] [address] Eric Barrientos MD Age-related osteoporosis without current pathological fracture 02/26/2025 12:50 PM EDT Office Visit [facility] [address], [address] [place] [address] Jaiden Fuentes MD Hip pain, bilateral (Primary Dx) 02/26/2025 12:29 PM EDT - 02/26/2025 11:59 PM EDT Hospital Encounter [facility] Radiology [address] [place] [address] Left knee pain, unspecified chronicity; [...] Broderick Mendoza Arthritis Father's Brother 1 Luis Natarajanburn Arthritis Father's Brother 2 Gold Pablo Mendoza Arthritis Father's Sister Yessi Natarajanburn Molony Kidney disease Father's Sister Yessi Natarajanburn Molony Osteoporosis Father's Sister Yessi Reji Molony Rheumatologic disease Father's Sister Yessi Reji Rooney olony Diabetes Maternal Grandmother Joy Mccarthy Rheumatologic disease Maternal Grandmother Joy Rooney oss Stroke Maternal Grandmother Joylashawn Mccarthy Cancer Mother Maria Teresa Carlos Mendoza Diabetes Mother Maria Teresa Gonzalez Fabio Mendoza Obesity Mother Maria Teresa Gonzalez Fabio Mendoza Stroke Mother Maria Teresa Gonzalez Fabio Mendoza Vision loss Mother Maria Teresa Gonzalez Fabio Mendoza Arthritis Other 1 Joy Mccarthy Obesity Other 1 Joy Mccarthy Diabetes Other 2 Hank Mccarthy Obesity Other 2 Hank Mccarthy Hypertension Other 3 Sarabjit Liang Obesity Other 3 Sarabjit Linag Other cancer Other 4 Heart Problem Other [...] No Comments:Never Used 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 Alcohol Use Standard Drinks/Week Comments Yes 2 [...] drink first t figueroa in the morning (EYE-HVAC SHEET METAL INSTALLER HELPER) to steady your nerves or to get [...] F) 03/29/2025 10:27 AM EDT Respiratory Rate 18 02/26/2025 12:58 PM EDT Oxygen Saturation 99% 03/29/2025 10:27 AM EDT Inhaled Oxygen Concentration - - Weight 87.2 kg (192 lb 3.9 oz) 03/29/2025 10:27 AM EDT Height 165.1 cm (5' 5 ) 03/29/2025 10:27 AM EDT Body Mass Index 31.99 03/29/2025 10:27 AM EDT Plan of Treatment Upcoming Encounters Date Type Department Care Team (Late st Contact Info) Description 03/21/2026 11:40 AM EDT Office Visit [facility] Nephrology, Bone & Mineral Metabolism [address] [facility], [address] [place] [address] Edinson Reyes MD [address] [place] [id number] Health Maintenance Due Date Last Done Comments [facility]-Hepatitis C Screening 1950 [facility]-Medicare Annual Wellness (AWV) 1950 [facility]-/Child/Adol SDOH Screenings 1950 [facility]- SDOH Screenings 1968 [facility]-Adult SDOH Screenings 1968 CT Colonography 12/24/1995 Colonoscopy 12/24/1995 FIT-DNA 12/24/1995 FIT 12/24/1995 FOBT 12/24/1995 Sigmoidoscopy 12/24/1995 [facility]-Colorectal Cancer Screening 12/24/1995 [facility]-Zoster Vaccines (1 of 2) 2000 05/24/2007, 03/29/2007 [id number] Vaccine ( season) 2025 03/11/2022, 03/12/2021, 07/22/2020, Additional history exists [facility]-DTaP,Tdap,and Td Vaccines (2 - Td or Tdap) 04/12/2025 04/12/2015 [facility]-Bone Density Scan 08/25/2025 08/25/2024 , 04/19/2023, 03/12/2022, Additional history exists [facility]-Depression Screening 03/29/2026 03/29/2025, 10/06 [facility]-Breast Cancer Screening 04/21/202604/07, 04/21/2024, 04/11/2024, Additional history exists [facility]-Hepatitis A Vaccines Aged Out 09/24/2018, 03/07 No longer eligible based on patient's age to complete this topic [facility]-Diabetes: Hemoglobin A1C Discontinued 04/09/2022, 03/20/2019 [facility]-Pneumococcal Vaccine: 50+ Years Completed 04/20/2023, 03/12/2017, 03/07/2017, Additional history exists [facility]-RSV Vaccine: 60+ Years or Completed 05/06/2023 [facility]-Influenza Vaccine Completed 03/15/2025 , 04/03/2021, 03/11/2020, Additional history exists [facility]-Obesity Intervention Completed 025, 02/26/2025, 11/01/2024, Additional history exists HPV Vaccines Aged Out [...] this topic Medical Devices Implanted Type Area Drafting Layout Worker Device Identifier Shelf Expiration Date Model / Serial / Lot Chip Bone 40cc - [id number] - [id number] Implanted:Qty: 1 on 07/22/2022 by Pratik Carver MD at [facility] N/A: Spine Lumbar [facility]-[id number] 02/23/2027 PCAN1/2 / [id number] / [id number] Screw 5.5mm Viper Ti Fen Crtcl Polyax 6mm X 30mm - [id number] Implanted:Qty: 8 on 07/22/2022 by Pratik Carver MD at [facility] N/A: Spine Lumbar [employer]-[id number] 07/22/2023 [id number] / / Chip Bone 40cc - [id number] - [id number] Implanted:Qty: 1 on 07/22/2022 by Pratik Carver MD at [facility] N/A: Spine Lumbar [facility]-[id number] 04/21/2027 PCAN1/2 / [id number] / [id number] Graft Vivigen 5cc - [id number] - [id number] Implanted:Qty: 1 on 07/22/2022 by Pratik Carver MD at [facility] N/A: Spine Lumbar [facility]-[id number] 07/01/2023 BL-1500-002 / [id number] / [id number] Screw 5.5mm Viper Ti Fen Crtcl Polyax 5mm X 40mm - [id number] Implanted:Qty: 2 on 07/22/2022 by Pratik Carver MD at [facility] N/A: Spine Lumbar [employer]-[id number] 07/22/2023 [id number] / / Screw Exp Viper Lg Tit 9x100 - [id number] Implanted:Qty: 1 on 07/22/2022 by Pratik Carver MD at [facility] N/A: Spine Lumbar [employer]-[id number] 07/22/2023 [id number] / / Screw 5.5mm Viper Ti Polyax Fullthrd 8mm X 100mm - [id number] Implanted:Qty: 1 on 07/22/2022 by Pratik Carver MD at [facility] N/A: Spine Lumbar [employer]-[id number] 07/22/2023 [id number] / / Single Inner Setscrew - [id number] Implanted:Qty: 23 on 07/22/2022 by Pratik Carver MD at [facility] N/A: Spine Lumbar [employer]-[id number] 07/22/2023 [id number] / / Ap Expedium Ti Precontoured Small 5.5mm - [id number] Implanted:Qty: 2 on 07/22/2022 by Pratik Carver MD at [facility] N/A: Spine Lumbar [employer]-[id number] 07/22/2023 [id number] / / Plate Sfx 5.5 Ti Med Size A5 - [id number] Implanted:Qty: 1 on 07/22/2022 by Pratik Carver MD at [facility] N/A: Spine Lumbar [employer]-[id number] 07/22/2023 [id number] / / Procedures Procedure Name Priority Date/Time Associated Diagnosis Comments XR KNEE RIGHT 1 OR 2 VIEWS Routine 02/26/2025 12:51 PM EDT Pain XR HIPS BILATERAL 2 VIEWS Routine 02/26/2025 12:51 PM EDT Hip pain, bilateral XR KNEE LEFT 1 OR 2 VIEWS Routine 02/26/2025 12:51 PM EDT Left knee pain, unspecified chronicity [place] ARTHROCENTESIS ASPIR&/INJ MAJOR JT/BURSA W/O US Routine [...] no evidence of hardware loosening or failure. Cicx-xj-metezjsb right hip osteoarthrosis. CRITICAL RESULT: No. COMMUNICATION: [...] joints posterior fusion hardware is partially visualized. Bmvt-jt-svvcicqp osteoarthrosis of the right hip. Femoral head [...] sacroiliac joints posterior fusionhardware is partially visualized. Lfsx-te-irgksqzx osteoarthrosis of theright hip. Femoral head is well-seated within the acetabulum. No acutefracture or dislocation.. IMPRESSION: Redemonstration of bilateral total knee arthroplasties in unchangedalignment with no hardware complications. Left total hip arthroplasty in unchanged alignment with no evidence ofhardware loosening or failure. Yrlr-ct-iqwepicr right hip osteoarthrosis. CRITICAL RESULT: No. COMMUNICATION: [...] no evidence of hardware loosening or failure. Quwe-og-cwzndkfc right hip osteoarthrosis. CRITICAL RESULT: No. COMMUNICATION: [...] joints posterior fusion hardware is partially visualized. Vjis-qs-vxvcujaj osteoarthrosis of the right hip. Femoral head [...] sacroiliac joints posterior fusionhardware is partially visualized. Vfym-qx-bffhhawi osteoarthrosis of theright hip. Femoral head is well-seated within the acetabulum. No acutefracture or dislocation.. IMPRESSION: Redemonstration of bilateral total knee arthroplasties in unchangedalignment with no hardware complications. Left total hip arthroplasty in unchanged alignment with no evidence ofhardware loosening or failure. Lhss-ji-jzpxveke right hip osteoarthrosis. CRITICAL RESULT: No. COMMUNICATION: [...] no evidence of hardware loosening or failure. Nfwq-ku-rkobpypn right hip osteoarthrosis. CRITICAL RESULT: No. COMMUNICATION: [...] joints posterior fusion hardware is partially visualized. Lbbd-tp-pxiwykww osteoarthrosis of the right hip. Femoral head [...] sacroiliac joints posterior fusionhardware is partially visualized. Vtfd-jz-itubdjsr osteoarthrosis of theright hip. Femoral head is well-seated within the acetabulum. No acutefracture or dislocation.. IMPRESSION: Redemonstration of bilateral total knee arthroplasties in unchangedalignment with no hardware complications. Left total hip arthroplasty in unchanged alignment with no evidence ofhardware loosening or failure. Sccb-ke-xykelzjl right hip osteoarthrosis. CRITICAL RESULT: No. COMMUNICATION: [...] IMG XR PROCEDURES Final Resul t * [place] ARTHROCENTESIS ASPIR&/INJ MAJOR JT/BURSA W/O US (02/26/2025 [...] to verify the correct patient, procedure, equipment, supportive employment case manager and site/side marked as required. Patient was prepped and draped in the usual sterile fashion. us Jaiden Fuentes MD IN CLINIC/BEDSIDE ORDERABLES Final Result * Dexa Bone Density (08/25/2024 11:50 AM EDT) Anatomical Region Laterality Modality L-spine Radiographic Deepali ging Narrative 09/06/2024 8:02 AM EDT [facility] - [facility] Mineral [facility] [address] [place] [address] DXA Bone Densitometry Report: [08/25/2024] BMD test performed using the [employer] DXA System (analysis version: 14.10) manufactured by [employer]. REFERRING PROVIDER: Dr. Eric Barrientos MD CLINICAL [...] 6.4(H) <5.7 % 04/10/2022 8:39 AM EDT [facility] Blood Venous blood [...] Adults <6.0% Children and Adolescents <7.5% Source: [place] Diabetes Association. Standards of medical care in diabetes,2017. Diabetes Care.2017:40 (suppl 1):S1-S135. HbA1c assay performed by an ion-exchange chromatography method that is certified traceable to the DCCT. us Pratik Carver MD LAB BLOOD ORDERABLES Final Res [facility] [address] [place] [phone] from Last 3 Months or Most Recently Relevant to Health Maintenance Insurance [facility] MEDICARE Advance Directives * Full Code (Latest Code Status on File) Date Activated Date Inactivated Comments 07/22/2022 1:01 PM 07/25/2022 4:04 PM Question Answer Comments Patient has decision-making capacity? Yes Care Teams Tag And Label Cutter Relationship Specialty Start Date End Date Gary Roberts MD [address] [place] [address] PCP - General 10/18/20
--- OUTSIDE RECORDS SUMMARY | 2025-03-30 10:19 | XMS_ITS | Clinical Summary ---
[facility] Organization [facility] Address [address] [place] [address] Care Team Providers Care Veterans Service Representative Name Role Phone Gary Roberts MD Primary Care Provider Allergies Active Allergy Reactions Criticality Noted Date Comments Karthik Inhibitors 11/06/2015 Amlodipine Swelling High 09/14/2024 Amoxicillin 11/06/2015 Penicillins Cefdinir Headache Low 09/14/2024 Cheese Other (See Comments) 11/16/2022 Other reaction(s): Unknown Budesonide 02/09/2017 Corticosteroids Nabumetone Headache Low 09/14/2024 Metoclopramide 11/06/2015 Sulfa Antibiotics 02/09/2017 Sulindac 11/06/2015 Wound Dressing Adhesive Rash Low 01/29/2022 Medications azelastine (ASTELIN) 0.1 % nasal spray Use in each nostril as directed Active PATIENT SUPPLIED ALLERGY INJECTION Inject under the skin 1 (One) Time Per Week. Active allopurinol (ZYLOPRIM) 300 MG tablet 7 Active ZENPEP 58629-67339 units capsule delayed-releas e particles TAKE 1 CAPSULE BY MOUTH BEFORE [...] 30 minutes BEFORE physical exertion. 1 Active omeprazole (priLOSEC) 20 MG capsule Take 1 capsule by mouth Daily. 3 Active furosemide (LASIX) 20 MG tablet Take 1 tablet by mouth Daily As Needed. Active olmesartan (BENICAR) 20 MG tablet Take 1 tablet by mouth Daily. 3 Active Cholecalcifero l 50 MCG (2000 UT) capsule Take 1 capsule by mouth Daily. Active psyllium (Konsyl Daily Fiber) 100 % pack packet Take 1 packet by mouth Daily. Active [place]-3 Fatty Acids (fish oil) 1000 MG capsule [...] mg at bedtime. 600 mg daily. Active clobetasol (TEMOVATE) 0.05 % ointment Apply 1 Application topically to the appropriate area as directed 2 (Two) Times a Day. 30 g 1 4 Active Additional Information Patient taking differently:1 Application Topical 2 Times Daily,As needed, Reported on 03/19/2025 SUPER B COMPLEX/C PO Active benzonatate (TESSALON) 200 MG capsule Every 8 (Eight) Hours. 5 Active calcitriol (ROCALTROL) 0.25 MCG capsule Take 1 capsule by mouth Daily. 5 09/10/19 26 Active Calcium Carbonate-Vit D-Min (Calcium 600 + Minerals) 600-200 MG-UNIT tablet 1 (one) time each day at the same time. Active fluticasone (FLONASE) 50 MCG/ACT nasal spray instill one spray in each nostril twice daily 5 Active fluticasone (FLOVENT HFA) 110 MCG/ACT inhaler Inhale 2 puffs 2 (Two) Times a Day. Active olopatadine (PATANOL) 0.1 % ophthalmic solution Every 12 (Twelve) Hours. Active nystatin (MYCOSTATIN) 486422 UNIT/GM powder Apply topically to the appropriate area as directed 2 (Two) Times a Day. For 14 days or until symptom resolution 30 g 3 5 Active estradiol (VAGIFEM) 10 MCG tablet vaginal tabletIndicati ons:Atrophy of vagina Insert 1 tablet into the vagina 3 (Three) Times a Week. 12 tablet 12 5 Active montelukast (SINGULAIR) 10 MG tablet Take 10 mg by mouth Daily. 0 03/19/20 25 Discontin ued(*Ther apy completed ) Qvar RediHaler 80 MCG/ACT inhaler INHALE TWO PUFFS BY MOUTH EVERY TWELVE HOURS --SHAKE WELL BEFORE USE-- --RINSE MOUTH AFTER USE-- 1 03/19/20 25 Discontin ued(Formu raghav change) cetirizine (zyrTEC) 10 MG tablet Take 10 mg by mouth Daily. 1 03/19/20 25 Discontin ued(*Ther apy completed ) meloxicam (MOBIC) 7.5 MG tablet Take 1 tablet by mouth Daily. 03/19/20 25 Discontin ued(*Ther apy completed ) estradiol (VAGIFEM) 10 MCG tablet vaginal tabletIndicati ons:Atrophy of vagina Insert 1 tablet into the vagina 3 (Three) Times a Week. 12 tablet 12 4 03/13/20 25 Discontin ued(Reord er) estradiol (VAGIFEM) 10 MCG tablet vaginal tabletIndicati ons:Atrophy of vagina Insert 1 tablet into the vagina 3 (Three) Times a Week. 12 tablet 12 5 03/28/20 25 Discontin ued(Reord er) Active Problems Problem Noted Date Diagnosed Date [...] Encounters Date Type Department Care Team Description 03/28/2025 Refill [facility] [address] [phone] Martha Hutchinson MD Atrophy of vagina 03/19/2025 2:10 PM EDT Office Visit [facility] [address] [address] Martha Hutchinson MD Women's annual routine gynecological examination (Primary Dx); Encounter for screening mammogram for breast cancer; Vaginal atrophy 03/19/2025 Travel 03/13/2025 Telephone [facility] [address] [address] Martha Hutchinson MD Med Refill from Last 3 Months Family History Medical [...] Pressure 144/74 03/19/2025 2:04 PM EDT Pulse 77 02/15/2017 10:20 AM EDT Temperature 36.6 C (97.8 F) 12/29/2017 8:01 AM EDT Respiratory Rate 17 11/19/2017 10:2 9 AM EDT Oxygen Saturation 98% 11/19/2017 10: 29 AM EDT Inhaled Oxygen Concentration - - Weight 86.1 kg (189 lb 12.8 oz) 03/19/2025 2:04 PM EDT Height 166.4 cm (5' 5.5 ) 03/19/2025 2:04 PM EDT per pt Body Mass Index 31.1 03/19/2025 2:04 PM EDT Plan of Treatment Upcoming Encounters Date Type Department Care Team (Late st Contact Info) Description 03/28/2026 11:10 AM EDT Office Visit [facility] [address] [address] Martha Hutchinson MD [address] [place] [address] Health Maintenance Due Date Last Done Comments TDAP/TD VACCINES (1 - Tdap) 1969 COLOGUARD 12/24/1995 COLON CANCER SCREENING 5 YEAR SIGMOIDOSCOPY 12/24/1995 CT COLONOGRAPHY 12/24/1995 FECAL OCCULT BLOOD TEST 12/24/1995 FIT Testing (1 year) 12/24/1995 ZOSTER VACCINE (1 of 2) 2000 ANNUAL WELLNESS VISIT 10/09/2016 HEPATITIS C SCREENING 10/09/2016 HEMOGLOBIN A1C 10/07/2022 04/09/2022, 11/0 08/2021, 06/26/2014 COLONOSCOPY 12/21/2022 12/21/2012 INFLUENZA VACCINE 01/05/2025 04/03/2021, , 02/23/2020, Additional history exists COVID-19 Vaccine ( season) 2025 03/11/2022, 03/12/2021, 07/22/2020, Additional history exists COLORECTAL CANCER SCREENING 05/07/2025 Postponed from 12/24/1995 (Pending event) DXA SCAN 08/25/2026 08/25/2024, 08/06, 04/19/2023, Additional [...] fall-prevention measurements. The National Osteoporosis Foundation recommends (http://www.nof.org/hcp/practice/rkxtwecq-afy-lnrbzomh-guidelines/clinic ans-guide) that FDA-approved medical therapies be considered [...] the left hip with 95% confidence is 0.303609 gm/cm2 at the hip and 0.457289 g/cm2 at the lumbar spine. This report [...] fall-prevention measurements. The National Osteoporosis Foundation recommends (http://www.nof.org/hcp/practice/duzfsugv-mjn-vhtpotih-guidelines/clinic ans-guide) that FDA-approved medical therapies be considered [...] the left hip with 95% confidence is 0.071921 gm/cm2 at the hip and 0.986161 g/cm2 at the lumbar spine. This report was finalized on 11/24/2018 12:[address] Jose Latif. us Jacky Quezada MD IMG DXA ORDERABLES Final Result * (ABNORMAL) Hemoglobin A1c (06/26/2014 10:55 AM EST) Hemoglobin A1C 6.5(H) 4.00 - 6.00 % [facility] Comment: DF by IF @ 06/26/2014 11:44 The [place] Diabetes Association recommends maintenance of Hemoglobin A1C at 7.0% or lower. Goals for Hemoglobin A1C reduction may need to be modified if hypoglycemia is a problem. Mean Bld Glu Estim. 135 mg/dL [facility] [employer] Blood specimen (specimen) 06/26/2014 10:55 AM EST [facility]ative [facility] - 06/26/2014 11:44 AM EST Specimen Type: Blood us Curt Gipson MD LAB BLOOD ORDERABLES Final Resu lt [facility] [address] [place] [address], from Last 3 Months or Most Recently Relevant to Health Maintenance Insurance [place] [id number] [facility] Medicare Advantage GROUP PPO Care Teams Veterans Service Representative Relationship Specialty Start Date End Date Gary Roberts MD [address] [facility] [address] [place] [id number] PCP - General 11/11/15
--- OUTSIDE RECORDS SUMMARY | 2025-03-30 10:19 | XMS_ITS | Encounter Summary ---
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, [address] [place] [phone] Edinson Reyes MD [address] [place] [phone] documented as of this encounter Visit Diagnoses [...] documented as of this encounter Care Teams Career Orientation Teacher Relationship Specialty Start Date End Date Gary Roberts MD [address] [place] [address] PCP - General 10/18/20 documented as of this encounter
--- OUTSIDE RECORDS SUMMARY | 2025-03-30 10:20 | XMS_ITS | Encounter Summary ---
[facility] [address] [place] [id number] Care Team Providers Care Flame Hardener Name Role Phone Gary Roberts MD Primary Care Provider Encounter Details Date Type Department Care Team (Late st Contact Info) Description 03/28/2025 Refill [facility] [address] [phone] Martha Hutchinson MD [address] [place] [address] Atrophy of vagina Social History Tobacco Use Types Packs/Day Years [...] encounter Miscellaneous Notes * Telephone Encounter - Alberta Hernandez MA - 03/28/2025 10:54 AM EDT Pharmacy change * Telephone Encounter - Umm Amaya RegSched Rep - 03/28/2025 9:38 AM EDT Patient needs a refill of Estradiol 10 MCG [facility] [place] [phone] documented in this encounter Plan of Treatment Upcoming Encounters Date Type Department Care Team (Late st Contact Info) Description 03/28/2026 11:10 AM EDT Office Visit [facility] [address] [phone] Martha Hutchinson MD [address] [id number] documented as of this encounter Visit Diagnoses Diagnosis Atrophy of vagina Postmenopausal atrophic vaginitis documented in this encounter Care Teams Flame Hardener Relationship Specialty Start Date End Date Gary Roberts MD [address] [facility] [address] [place] [address] PCP - General 11/11/15 documented as of this encounter
--- OUTSIDE RECORDS SUMMARY | 2025-03-30 10:21 | XMS_ITS | Patient Health Record ---
[facility] Organization [facility] Address [address] [place] [id number] Care Team Providers Care Manager Systems Name Role Phone Samy Roberts Primary Care Provider Guero Estrada Unavailable [phone] Gretchen Oconnell Unavailable [phone] Allergies Allergen (clinical drug ingredient) Drug/Non Drug [...] Interpretation:neg Performing Lab: Notes/Report: neg Result: neg CBC Fingerstick (in house) Reviewed date:01/25/2025 08:17:31 [...] - 38 plat 286 100 - 400 CBC Fingerstick (in house) Reviewed date:02/21/2025 10:08:22 [...] - 38 platlet 312 100 - 400 Urinalysis - Inhouse Reviewed date:03/21/2025 10:30:53 AM [...] growth Performing Lab: Notes/Report: Test performed by [facility] [address] [place] [address] , [address], [place] [address] Eddie Rose MD, Rn Ortho CLIA: [id number] Specimen Source Urine - Void Culture, Urine See Below Final Report : No growth Urinalysis - Inhouse Reviewed date:04/13/2024 04:56:16 PM Interpretation: Performing Lab: Notes/Report: Color/Clarity yellow/clear Leuk trace Nitrite neg Urobili 3.2 Protein neg pH 5.5 Blood neg Sp. Gr. <=1.005 Ketone neg Bili neg Gluc neg H-CBC Reviewed date:12/31/2024 10:26:15 PM Interpretation:hgb 11, [...] Notes/Report: LEV 63.2 10.0-40.0 ug/mL Performed at: [address] [id number] Instructional Technology Coordinator: Emmett Savage MD, Phone: [phone] TEN-UTI panel Reviewed date:04/17/2024 12:48:10 PM Interpretation:Abnormal Performing Lab: Notes/Report: Abnormal CT Scan : Sinuses, without c ontrast Reviewed date:05/02/2024 08:21:25 AM Interpretation:unremarkable Performing Lab: Notes/Report: unremarkable CBC Fingerstick (in house) Reviewed date:10/03/2024 08:01:11 [...] - 38 plat 259 100 - 400 H-Lipid Panel Reviewed date:12/31/2024 [...] Duration) Notes Start Date End Date Status Calcium 600 + Minerals 600-200 MG-UNIT 2 [...] needed Inhalation every 4 hrs Active Zenpep 01655-57013 UNIT 1 cap(s) Orally Three times a day Active Nystatin-Triamcinolone 206830-0.1 UNIT/GM 1 application Externally Twice a day 04/28/2024 Active Furosemide 20 MG 1 tablet Orally once daily; Duration: 90 days Active Azelastine HCl 137 MCG/SPRAY 2 spray(s) intranasally 2 times a day Active Fish Oil 1200 MG 1 cap(s) orally once daily Active Keppra XR 500 MG 1 q am, 4 q hs orally Active Xiidra 5 % 1 drop into affected eye Ophthalmic Twice a day Active Omeprazole 40 MG 1 cap(s) orally once a day Active Benzonatate 200 MG 1 capsule as needed Orally Three times a day 03/06/2025 Active Allopurinol 300 mg TAKE ONE TABLET BY M OUTH EVERY DAY; Duration: 90 Active Rosuvastatin Calcium 10 mg TAKE ONE TABLET BY MOUTH EVERY DAY; Duration: 90 Active Olmesartan Medoxomil 20 mg take 1 tablet orally once a day; Duration: 90 days Active CareTouch CPAP & BIPAP Hose as directed 08/18/2021 Active Immunizations Vaccine Route Administration Date Status Comme nts xFluzone Intradermal (18-64yrs)-trivalent ID Intradermal 03/11/2012 Administered xFluzone (6mos and older)-trivalent IM Intramuscular 05/19/2013 Administered xFluzone (6mos and older)-trivalent IM Intramuscular 03/26/2014 Administered xFlu shot-36 months and older IM Intramuscular 04/24/2005 Administered xFlu shot-36 months and older IM Intramuscular 04/21/2006 Administered xFlu shot-36 months and older IM Intramuscular 03/12/2007 Administered xFlu shot-36 months and older IM Intramuscular 03/26/2008 Administered xFlu shot-36 months and older IM Intramuscular 02/27/2009 Administered xFlu shot-36 months and older IM 04/07/2010 Administered xFlu shot-36 months and older IM Intramuscular 03/13/2011 Administered Varivax Unknown 03/29/2007 Administered Varivax Unknown 05/24/2007 Administered Varivax Unknown 05/24/2007 Administered Tetanus Tdap-Adacel (over 7yrs) ID Intradermal 04/12/2015 Administered Prevnar (PCV20) IM Intramuscular 04/20/2023 Administered Prevnar (PCV13) IM Intramuscular 03/13/2016 Administered Fluzone High Dose (65yr and older) IM Intramuscular 02/14/2016 Administered Fluzone High Dose (65yr and older) IM Intramuscular 03/12/2017 Administered Fluzone High Dose (65yr and older) IM Intramuscular 03/03/2018 Administered Fluzone High Dose (65yr and older) IM Intramuscular 03/24/2019 Administered Fluzone High Dose (65yr and older) IM Intramuscular 02/23/2020 Administered Fluzone High Dose (65yr and older) IM Intramuscular 04/03/2021 Administered Fluzone High Dose (65yr and older) IM Intramuscular 04/20/2023 Administered Fluzone High Dose (65yr and older) IM Intramuscular 03/07/2024 Administered COVID 19 Moderna Unknown 06/12/2020 Administered COVID 19 Moderna Unknown 07/10/2020 Administered COVID 19 Moderna Unknown 03/12/2021 Administered PNEUMOVAX 23 VACCINE IM Intramuscular 03/11/2012 Administe red PNEUMOVAX 23 VACCINE IM Intramuscular 03/12/2017 Administe red Hepatitis A (adult) Unknown 03/23/2018 Administered Hepatitis A (adult) IM Intramuscular 09/24/2018 Administer ed Problems Problem Type SNOMED Code ICD Code Onset Dates Problem Status W/U Status Risk Notes Problem Information temporarily unavailable Leukocytosis (D72.829) Active confirmed Problem Information temporarily unavailable Sciatica (M54.30) Active confirmed Problem Information temporarily unavailable HTN (hypertension) (I10) Active confirmed Problem Information temporarily unavailable Chronic renal insufficiency (N18.9) Active confirmed Problem Information temporarily unavailable Venous insufficiency (I87.2) Active confirmed Problem Information temporarily unavailable Seasonal allergies (J30.2) Active confirmed Problem Information temporarily unavailable Chronic sinusitis (J32.9) Active confirmed Problem Information temporarily unavailable Hyperuricemia (E79.0) Active confirmed Problem Information temporarily unavailable BMI 32.0-32.9,adult (Z68.32) Active confirmed Problem Information temporarily unavailable BMI 33.0-33.9,adult (Z68.33) Active confirmed Problem Information temporarily unavailable Seizure disorder (G40.909) Active confirmed Problem Information temporarily unavailable Cataract (H26.9) Active confirmed Problem Information temporarily unavailable Generalized osteoarthritis (M15.9) Active confirmed Problem Information temporarily unavailable Depressive disorder (F32.9) Active confirmed Problem Information temporarily unavailable Gastroesophageal reflux disease without esophagitis (K21.9) Active confirmed Problem Information temporarily unavailable Allergic rhinitis (J30.9) Active confirmed Problem Information temporarily unavailable 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 myelopathy or radiculopathy (M47.816) Active confirmed Problem Information temporarily unavailable CHER (obstructive sleep apnea) (G47.33) Active confirmed Problem Information temporarily unavailable Iron deficiency anemia, unspecified iron deficiency anemia type (D50.9) Active confirmed Problem Information temporarily unavailable Dyslipidemia (E78.5) Active confirmed Problem Information temporarily unavailable Foot ulcer, left, with unspecified severity (L97.529) Active confirmed Problem Information temporarily unavailable Seasonal allergic rhinitis, unspecified trigger (J30.2) Active confirmed Problem Information temporarily unavailable Allergic rhinitis, unspecified seasonality, unspecified trigger (J30.9) Active confirmed Problem Information temporarily unavailable Acute allergic rhinitis (J30.9) Active confirmed Problem Information temporarily unavailable Allergic rhinitis due to other allergic trigger, unspecified seasonality (J30.89) Active confirmed Vital Signs Heart Rate 64 /min 03/20/2025 Blood pressure diastolic 62 mm Hg 03/20/2025 Height 64.50 in 03/20/2025 Blood pressure systolic 126 mm Hg 03/20/2025 Weight 191.2 lbs 03/20/2025 BMI 32.31 kg/m2 03/20/2025 Encounters Encounter Location Date Provider Diagnosis [facility] [address] [place], [place] [id number] 03/30/2024 R Broderick Armando Acute sinusitis J01. 90 and Allergic rhinitis J30.9 [facility] [address] [place], [place] [id number] 04/07/2024 R Broderick Armando Allergic rhinitis J3 0.9 [facility] [address] [place], [place] [id number] 04/13/2024 R Broderick Armando Chronic sinusitis J3 2.9 ; Foot pain M79.673 ; Dysuria R30.0 and Allergic rhinitis, unspecified seasonality, unspecified trigger J30.9 [facility] [address] [place], [place] [id number] 04/21/2024 R Broderick Armando Allergic rhinitis J3 0.9 [facility] [address] [place] [id number] 04/28/2024 Gretchen Crowdy Yeast infection B37. 9 [facility] [address] [place], [place] [id number] 05/05/2024 R Broderick Armando Seasonal allergies J 30.2 [facility] [address] [place] [id number] 05/12/2024 R Broderick Armando [facility] [address] [place] [id number] 05/18/2024 R Broderick Armando Seasonal allergies J 30.2 [facility] [address] [place] [id number] 05/25/2024 R Broderick Armando Seasonal allergies J 30.2 and Leg edema R60.0 [facility] [address] [place] [id number] 06/01/2024 R Broderick Armando Seasonal allergies J 30.2 [facility] [address] [place] [id number] 06/09/2024 R Broderick Armando Allergic rhinitis J3 0.9 [facility] [address] [place], [place] [id number] 06/15/2024 R Broderick Armadno Allergic rhinitis, unspecified seasonality, unspecified trigger J30.9 [facility] [address] [place] [id number] 06/21/2024 R Broderick Armando [facility] [address] [place] [id number] 06/29/2024 R Broderick Armando Allergic rhinitis, unspecified seasonality, unspecified trigger J30.9 [facility] [address] [place] [id number] 08/10/2024 R Broderick Armando Allergic rhinitis, unspecified seasonality, unspecified trigger J30.9 [facility] [address] [place] [id number] 08/17/2024 R Broderick Armando Allergic rhinitis J3 0.9 [facility] [address] [place] [id number] 08/24/2024 R Broderick Armando Allergic rhinitis J3 0.9 [facility] [address] [place] [id number] 09/07/2024 R Broderick Armando Allergic rhinitis J3 0.9 [facility] [address] [place] [id number] 09/13/2024 R Broderick Armando Allergic rhinitis J3 0.9 and Acute allergic rhinitis J30.9 [facility] [address] [place] [id number] 09/21/2024 R Broderick Armando Seasonal allergies J 30.2 [facility] [address] [place] [id number] 09/28/2024 R Broderick Armando Allergic rhinitis J3 0.9 [facility] [address] [place] [id number] 10/03/2024 R Broderick Armando Acute sinusitis J01. 90 [facility] [address] [place] [id number] 10/05/2024 R Broderick Armando [facility] [address] [place] [id number] 10/06/2024 R Broderick Armando Allergic rhinitis J3 0.9 [facility] [address] [place] [id number] 10/12/2024 R Broderick Armando Allergic rhinitis J3 0.9 [facility] [address] [place] [id number] 10/20/2024 Gretchen Crowdy Acute URI J06.9 and HTN (hypertension) I10 [facility] [address] [place], [place] [id number] 10/31/2024 R Broderick Armando Allergic rhinitis J3 0.9 [facility] [address] [facility] [address] [place], [place] [id number] 11/17/2024 R Broderick Armando Allergic rhinitis du e to other allergic trigger, unspecified seasonality J30.89 [facility] [address] [place] [id number] 11/23/2024 R Broderick Armando [facility] [address] [place] [id number] 12/12/2024 R Broderick Armando Adult general medica l examination Z00.00 ; HTN (hypertension) I10 ; Dyslipidemia E78.5 ; Hyperuricemia E79.0 ; Iron deficiency anemia, unspecified iron deficiency anemia type D50.9 ; Seizure disorder G40.909 ; Gastroesophageal reflux disease without esophagitis K21.9 ; Seasonal allergies J30.2 ; CHER (obstructive sleep apnea) G47.33 and BMI 32.0-32.9,adult Z68.32 [facility] [address] [place] [id number] 12/14/2024 R Broderick Armando Muscle strain of rig ht upper back, initial encounter S29.012A and Seasonal allergic rhinitis, unspecified trigger J30.2 [facility] [address] [facility] [address] [place] [id number] 12/21/2024 R Broderick Armando Seasonal allergic rhinitis, unspecified trigger J30.2 [facility] [address] [place] [id number] 12/28/2024 R Broderick Armando Allergic rhinitis, unspecified seasonality, unspecified trigger J30.9 [facility] [address] [place] [id number] 01/05/2025 Guero Eldorado Allergic rhinitis, unspecified seasonality, unspecified trigger J30.9 [facility] [address] [place] [id number] 01/11/2025 R Broderick Armando Allergic rhinitis, unspecified seasonality, unspecified trigger J30.9 [facility] [address] [place] [id number] 01/19/2025 Gretchen Crowdy Acute URI J06.9 [facility] [address] [place] [id number] 01/23/2025 R Broderick Armando Acute sinusitis J01. 90 [facility] [address] [place] [id number] 02/01/2025 R Broderick Armando Sciatica M54.30 and Allergic rhinitis, unspecified J30.9 [facility] [address] [place] [id number] 02/08/2025 R Broderick Armando Allergic rhinitis J3 0.9 [facility] [address] [place] [id number] 02/20/2025 R Broderick Armando Allergic rhinitis J3 0.9 and Acute sinusitis J01.90 [facility] [address] [place] [id number] 03/02/2025 R Broderick Armando Allergic rhinitis, unspecified seasonality, unspecified trigger J30.9 [facility] [address] [place] [id number] 03/06/2025 R Broderick Armando Leukocytosis D72.829 ; Cough R05.9 ; Hypotension I95.9 and Hyperglycemia R73.9 [facility] [address] [place] [id number] 03/20/2025 R Broderick Armando Leucocytosis D72.829 ; Allergic rhinitis J30.9 ; Abnormal EKG R94.31 and Shoulder pain, left M25.512 [facility] [address] [place] [id number] 03/29/2025 R Broderick Armando [facility] [address] [place] [id number] 04/10/2024 R Broderick Armando Left foot pain M79.6 72 [facility] [address] [place] [id number] 04/17/2024 R Broderick Armando [facility] [address] [place] [id number] 05/02/2024 R Broderick Armando [facility] [address] [place] [id number] 06/21/2024 R Broderick Armando [facility] [address] [place] [id number] 08/09/2024 R Broderick Armando [facility] [address] [place] [id number] 10/05/2024 R Broderick Armando Leg edema R60.0 [facility] [address] [place] [id number] 11/15/2024 R Broderick Armando [facility] [address] [place] [id number] 11/30/2024 R Broderick Armando HTN (hypertension) I 10 ; Dyslipidemia E78.5 ; Hyperuricemia E79.0 ; Iron deficiency anemia, unspecified iron deficiency anemia type D50.9 and Seizure disorder G40.909 [facility] [address] [place] [id number] 12/21/2024 R Broderick Armando CHER (obstructive sle ep apnea) G47.33 [facility] [address] [place] [id number] 12/21/2024 R Broderick Armando [facility] [address] [place] [id number] 01/02/2025 R Broderick Armando [facility] [address] [place] [id number] 02/20/2025 R Broderick Armando [facility] [address] [place] [id number] 03/02/2025 R Broderick Armando Assessments Encounter Date Diagnosis (ICD Code) Assessment Notes Treatment Notes Treatment Clinical Notes Section Notes 06/15/2024 Allergic rhinitis, unspecified seasonality, unspecified trigger [...] J30.89) 11/30/2024 HTN (hypertension) (ICD-10 - I10) 04/13/2024 Chronic sinusitis (ICD-10 - J32.9) 04/13/2024 Foot pain (ICD-10 - M79.673) 11/30/2024 Dyslipidemia (ICD-10 - E78.5) 12/12/2024 HTN [...] 02/08/2025 Allergic rhinitis (ICD-10 - J30.9) 02/20/2025 Acute sinusitis (ICD-10 - J01.90) 02/20/2025 Allergic rhinitis (ICD-10 - J30.9) 03/02/2025 Allergic rhinitis, unspecified seasonality, unspecified trigger (ICD-10 - J30.9) 03/06/2025 Leukocytosis (ICD-10 - D72.829) Source of infection is not immediately evident. May be a stress reaction. 03/06/2025 Cough (ICD-10 - R05.9) 03/20/2025 Allergic rhinitis (ICD-10 - J30.9) 03/20/2025 Leucocytosis (ICD-10 - D72.829) She has no obvious source for infection. Recent preop chest x-ray was normal. Will check UA and culture 03/30/2024 Acute sinusitis (ICD-10 - J01.90) 03/30/2024 Allergic rhinitis (ICD-10 - J30.9) 04/07/2024 Allergic rhinitis (ICD-10 - J30.9) 04/10/2024 Left foot pain (ICD-10 - M79.672) 04/13/2024 Dysuria (ICD-10 - R30.0) 03/20/2025 Abnormal EKG (ICD-10 - R94.31) Concur with cardiology consultation 12/12/2024 Dyslipidemia (ICD-10 - E78.5) 03/06/2025 Hypotension (ICD-10 - I95.9) She will monitor her blood pressure at home and hold her olmesartan for systolic pressure less than 110 11/30/2024 Hyperuricemia (ICD-10 - E79.0) 09/13/2024 Acute allergic rhinitis (ICD-10 - J30.9) 04/13/2024 Allergic rhinitis, unspecified seasonality, unspecified trigger (ICD-10 - J30.9) 12/12/2024 Hyperuricemia (ICD-10 - E79.0) 11/30/2024 Iron deficiency anemia, unspecified iron deficiency anemia type (ICD-10 - D50.9) 03/20/2025 Shoulder pain, left (ICD-10 - M25.512) Continue working with therapy. If symptoms persist, may need advanced imaging 03/06/2025 Hyperglycemia (ICD-10 - R73.9) 12/12/2024 Iron [...] Insured Coverage Start Date Coverage End Date [facility] [address] [address] [place] [address] [id number] ISMAEL CARTER Self - patient is the insured [facility] [address] [place] [id number] ISMAEL CARTER Self - patient is the insured Medications Administered Medication Instructions Date of Administration Dosage Notes allergy 02/09/2015 0.15 mL allergy 02/09/2015 0.15 mL allergy 03/12/2015 0.15 mL allergy 03/12/2015 0.15 mL allergy 04/05/2015 0.20 mL allergy 04/05/2015 0.20 mL allergy 05/03/2015 0.25 mL allergy 05/03/2015 0.25 mL allergy 06/01/2015 0.30 mL allergy 06/01/2015 0.30 mL allergy 08/05/2015 .15 mL allergy 08/05/2015 .15 mL allergy 08/29/2015 0.20 mL allergy 08/29/2015 0.20 mL allergy 09/27/2015 0.25 mL allergy 09/27/2015 0.25 mL allergy 10/28/2015 0.30 mL allergy 10/28/2015 0.30 mL allergy 11/28/2015 0.35 mL allergy 11/28/2015 0.35 mL allergy 01/10/2016 0.05 mL allergy 01/10/2016 0.05 mL allergy 01/17/2016 0.10 mL allergy 01/17/2016 0.10 mL allergy 01/24/2016 0.10 mL allergy 01/24/2016 0.10 mL allergy 02/01/2016 0.10 mL allergy 02/01/2016 0.10 mL allergy 02/07/2016 0.10 mL allergy 02/07/2016 0.10 mL allergy 02/14/2016 0.10 mL allergy 02/14/2016 0.10 mL allergy 02/21/2016 0.10 mL allergy 02/21/2016 0.10 mL allergy 02/27/2016 0.10 mL allergy 02/27/2016 0.10 mg allergy 03/06/2016 0.10 mg allergy 03/06/2016 0.10 mg allergy 03/13/2016 .10 mL allergy 03/13/2016 .10 mL allergy 03/20/2016 0.05 mL allergy 03/20/2016 0.05 mL allergy 03/27/2016 .10 allergy 03/27/2016 .10 allergy 04/03/2016 0.15 mL allergy 04/03/2016 0.15 mL allergy 04/10/2016 0.20 mL allergy 04/10/2016 0.20 mL allergy 04/17/2016 0.25 mL allergy 04/17/2016 0.25 mL allergy 04/24/2016 0.30 mL allergy 04/24/2016 0.30 mL allergy 05/01/2016 0.35 mL allergy 05/01/2016 [...] 0.20 mL allergy 06/19/2016 0.20 mL allergy 06/26/2016 0.25 mL allergy 06/26/2016 0.25 mL allergy 08/01/2016 0.50 mL allergy 08/01/2016 0.50 mL allergy 08/14/2016 0.05 mL allergy 08/14/2016 0.05 mL allergy 08/21/2016 0.10 mL allergy 08/21/2016 0.10 mL allergy 08/28/2016 0.15 mL allergy 08/28/2016 0.15 mL allergy 09/04/2016 0.20 mL allergy 09/04/2016 0.20 mL allergy 09/11/2016 0.25 mL allergy 09/11/2016 0.25 mL allergy 09/18/2016 0.30 mL allergy 09/18/2016 0.30 mL allergy 09/25/2016 0.35 mL allergy 09/25/2016 0.35 mL allergy 10/02/2016 0.40 mL allergy 10/02/2016 0.40 mL allergy 10/09/2016 0.45 mL allergy 10/09/2016 0.45 mL allergy 10/16/2016 0.50 mL allergy 10/16/2016 0.50 mL allergy 10/24/2016 0.05 mL allergy 10/24/2016 0.05 mL allergy 10/30/2016 .50 mL Gave .50. THe dose should have been .10 allergy 10/30/2016 .10 mL allergy 11/12/2016 0.15 mL allergy 11/12/2016 0.15 mL allergy 11/20/2016 0.20 mg allergy 11/20/2016 0.20 mg allergy 11/27/2016 0.20 mL allergy 11/27/2016 0.20 mL allergy 12/05/2016 0.25 mL allergy 12/05/2016 0.25 mL allergy 12/11/2016 30 mL allergy 12/11/2016 30 mL allergy 12/18/2016 0.35 mL allergy 12/18/2016 0.35 mL allergy 12/26/2016 0.40 mL allergy 12/26/2016 0.40 mL allergy 01/01/2017 0.50 mL allergy 01/01/2017 0.50 mL allergy 01/08/2017 allergy 01/08/2017 0.10 mL allergy 01/15/2017 0.15 mL allergy 01/15/2017 0.15 mL allergy 01/22/2017 0.20 mL allergy 01/22/2017 0.20 mL allergy 01/29/2017 0.20 mL allergy 01/29/2017 0.20 mL allergy 02/06/2017 0.20 mL allergy 02/06/2017 0.20 mL allergy 02/13/2017 .20 mL allergy 02/13/2017 0.20 mL allergy 02/19/2017 0.20 mL allergy 02/19/2017 0.20 mL allergy 02/26/2017 allergy 02/26/2017 allergy 03/05/2017 0.05 mL allergy 03/05/2017 0.05 mL allergy 03/12/2017 0.05 mL allergy 03/12/2017 0.05 mL allergy 03/19/2017 0.05 mL allergy 03/19/2017 0.05 mL allergy 03/25/2017 0.10 mL allergy 03/25/2017 0.10 mL allergy 04/02/2017 0.15 mL allergy 04/02/2017 0.15 mL allergy 04/09/2017 0.20 mL allergy 04/09/2017 0.20 mL allergy 04/17/2017 0.25 mL allergy 04/17/2017 0.25 mL allergy 04/23/2017 0.30 mL allergy 04/23/2017 0.30 mL allergy 04/30/2017 0.35 mL allergy 04/30/2017 0.35 mL allergy 05/07/2017 0.40 mL allergy 05/07/2017 0.40 mL allergy 05/14/2017 0.05 mL allergy 05/14/2017 0.05 mL allergy 05/21/2017 0.10 mL allergy 05/21/2017 0.10 mL allergy 05/28/2017 0.15 mL allergy 05/28/2017 0.15 mL allergy 06/11/2017 0.05 mL allergy 06/11/2017 0.05 mL allergy 06/17/2017 allergy 06/17/2017 allergy 06/25/2017 0.15 mL allergy 06/25/2017 0.15 mL allergy 07/23/2017 0.35 mL allergy 07/23/2017 0.35 mL allergy 07/30/2017 0.40 mL allergy 07/30/2017 0.40 mL allergy 08/06/2017 0.45 mL allergy 08/06/2017 0.45 mL allergy 08/13/2017 0.50 mL allergy 08/13/2017 0.50 mL allergy 08/20/2017 0.05 ng allergy 08/20/2017 0.05 mL allergy 08/27/2017 0.10 mL allergy 08/27/2017 0.10 mL allergy 09/02/2017 0.15 mg allergy 09/02/2017 0.15 mg allergy 09/10/2017 0.20 mL allergy 09/10/2017 0.20 mL allergy 09/16/2017 0.25 mL allergy 09/16/2017 0.25 mL allergy 09/24/2017 0.30 mL allergy 09/24/2017 0.30 mL allergy 10/01/2017 0.35 mL allergy 10/01/2017 0.35 mL allergy 10/08/2017 0.35 mL allergy 10/08/2017 0.35 mL allergy 10/15/2017 0.35 mL allergy 10/15/2017 0.35 mL allergy 10/22/2017 0.35 mL allergy 10/22/2017 0.35 mL allergy 10/28/2017 0.15 mL allergy 10/28/2017 0.15 mL allergy 11/12/2017 0.20 mg allergy 11/12/2017 0.20 mg allergy 11/26/2017 0.25 mL allergy 11/26/2017 0.25 mL allergy 12/10/2017 0.30 mL allergy 12/10/2017 0.30 mL allergy 12/24/2017 0.35 mL allergy 12/24/2017 0.35 mL allergy 01/07/2018 0.35 mL allergy 01/07/2018 0.35 mL allergy 01/24/2018 0.35 mL allergy 01/24/2018 0.35 mL allergy 02/04/2018 0.35 mL allergy 02/04/2018 0.35 mL allergy 02/18/2018 0.35 mL allergy 02/18/2018 0.35 mL allergy 03/03/2018 0.35 mL allergy 03/03/2018 0.35 mL allergy 03/18/2018 0.35 mg allergy 03/18/2018 0.35 mg allergy 04/01/2018 0.20 mg allergy 04/01/2018 0.20 mg allergy 04/22/2018 0.25 mL allergy 04/22/2018 0.25 mL allergy 05/13/2018 .30 mL allergy 05/13/2018 allergy 05/27/2018 0.35 mL allergy 05/27/2018 0.35 mL allergy 06/10/2018 0.35 mg allergy 06/10/2018 0.35 mg allergy 07/23/2018 0.35 mL allergy 07/23/2018 0.35 mL allergy 08/05/2018 0.15 mg allergy 08/05/2018 0.15 mg allergy 08/19/2018 0.20 mg allergy 08/19/2018 0.20 mg allergy 09/02/2018 allergy 09/02/2018 allergy 09/16/2018 0.30 mL allergy 09/16/2018 0.30 mL allergy 10/03/2018 0.35 mL allergy 10/03/2018 0.35 mL allergy 10/14/2018 0.35 mL allergy 10/14/2018 0.35 mL allergy 10/28/2018 0.35 mg allergy 10/28/2018 0.35 mg allergy 11/09/2018 0.35 allergy 11/09/2018 0.35 allergy 11/25/2018 0.35 mL allergy 11/25/2018 0.35 mL allergy 12/09/2018 0.35 mL allergy 12/09/2018 0.35 mL allergy 2018 0.15 mg allergy 2018 0.15 mg allergy 01/06/2019 .20 mL allergy 01/06/2019 .20 mL allergy 01/20/2019 0.20 mg allergy 01/20/2019 0.20 mg allergy 02/03/2019 0.20 mL allergy 02/03/2019 0.20 mL allergy 02/17/2019 allergy 02/17/2019 allergy 03/03/2019 .20 allergy 03/03/2019 .20 allergy 03/17/2019 .2 mL allergy 03/17/2019 .2 mL allergy 03/31/2019 0.25 allergy 03/31/2019 0.25 allergy 05/05/2019 0.30 mg allergy 05/05/2019 0.30 mg allergy 05/12/2019 .15 allergy 05/12/2019 .15 allergy 05/26/2019 0.20 mL allergy 05/26/2019 0.20 mL allergy 06/09/2019 0.25 mL allergy 06/09/2019 0.25 mL allergy 07/21/2019 0.35 allergy 07/21/2019 0.35 allergy 08/04/2019 0.35 mL allergy 08/04/2019 0.35 mL allergy 08/25/2019 0.35 allergy 08/25/2019 0.35 allergy 09/06/2019 allergy 09/06/2019 allergy 09/15/2019 0.35 mg allergy 09/15/2019 0.35 mg allergy 09/29/2019 allergy 09/29/2019 allergy 10/13/2019 0.15 mL allergy 10/13/2019 0.15 mL allergy 10/24/2019 0.20 mg allergy 10/24/2019 0.20 mg allergy 11/03/2019 0.25 mg allergy 11/03/2019 0.25 mg allergy 11/17/2019 allergy 11/17/2019 allergy 12/01/2019 0.35 mL allergy 12/01/2019 0.35 mL allergy 12/21/2019 0.35 mg allergy 12/21/2019 0.35 mg allergy 01/05/2020 0.35 mL allergy 01/05/2020 0.35 mL allergy 01/19/2020 0.35 mL allergy 01/19/2020 0.35 mL allergy 02/02/2020 0.35 mL allergy 02/02/2020 0.35 mL allergy 02/16/2020 0.35 mL allergy 02/16/2020 0.35 mL allergy 03/02/2020 0.15 mg allergy 03/02/2020 0.15 mg allergy 03/15/2020 0.20 mL allergy 03/15/2020 0.20 mL allergy 03/29/2020 0.25 mg allergy 03/29/2020 0.25 mg allergy 04/12/2020 0.30 mL allergy 04/12/2020 0.30 mL allergy 04/26/2020 0.30 mL allergy 04/26/2020 0.30 mL allergy 05/10/2020 0.35 mg allergy 05/10/2020 0.35 mg allergy 05/24/2020 0.35 mL allergy 05/24/2020 0.35 mL allergy 06/06/2020 0.35 mL allergy 06/06/2020 0.35 mL allergy 06/21/2020 0.35 mL allergy 06/21/2020 0.35 mL allergy 07/05/2020 0.35 mL allergy 07/05/2020 0.35 mL allergy 07/19/2020 0.15 mL allergy 07/19/2020 0.15 mL allergy 08/02/2020 0.20 mg allergy 08/02/2020 0.20 mg allergy 08/16/2020 0.25 mg allergy 08/16/2020 0.25 mg allergy 08/30/2020 0.3 mL allergy 08/30/2020 0.3 mL allergy 09/14/2020 0.35 mL allergy 09/14/2020 0.35 mL allergy 09/30/2020 0.35 mL allergy 09/30/2020 0.35 mL allergy 10/11/2020 0.35 mL allergy 10/11/2020 0.35 mL allergy 10/25/2020 .35 mL allergy 10/25/2020 0.35 mL allergy 11/12/2020 0.35 mL allergy 11/12/2020 0.35 mL allergy 11/21/2020 0.35 mL allergy 11/21/2020 0.35 mL allergy 12/06/2020 0.15 mL allergy 12/06/2020 0.15 mL allergy 12/20/2020 0.20 mL allergy 12/20/2020 0.20 mL allergy 01/03/2021 0.25 mL allergy 01/03/2021 0.25 mL allergy 01/17/2021 0.3 mL allergy 01/17/2021 0.3 mL allergy 02/13/2021 0.10 mL Right Upper-1 [...] 0.5 mL allergy 03/07/2021 0.5 mL allergy 03/18/2021 0.10 mL Blue vial Mix 1 allergy 03/18/2021 0.10 mL Blue Vial Mix 2 allergy 03/18/2021 0.10 mL Blue Vial Mix 3 allergy 03/21/2021 .2 mL allergy 03/21/2021 .2 mL allergy 03/21/2021 .2 mL allergy 03/25/2021 0.20 mL Mix 1 allergy 03/25/2021 0.20 mL Mix 2 allergy 03/25/2021 0.20 mL Mix 3 allergy 04/03/2021 0.4 mL allergy 04/03/2021 0.4 mL allergy 04/03/2021 0.4 mL allergy 04/07/2021 0.50 mL allergy 04/07/2021 0.50 mL allergy 04/07/2021 0.50 mL allergy 04/21/2021 0.10 mL Vial #1 [...] 0.3 mL allergy 04/28/2021 0.3 mL allergy 05/02/2021 0.5 mL given by Vicki Singer allergy 05/02/2021 0.5 mL allergy 05/02/2021 0.5 mL allergy 05/05/2021 0.5 mL allergy 05/05/2021 0.5 mL allergy 05/05/2021 0.5 mL allergy 05/13/2021 0.1 mL allergy 05/13/2021 0.1 mL allergy 05/13/2021 0.1 mL allergy 05/17/2021 0.15 mL allergy 05/17/2021 0.15 mL allergy 05/17/2021 0.15 mL allergy 05/20/2021 0.2 allergy 05/20/2021 0.2 mL allergy 05/20/2021 0.2 mL allergy 05/23/2021 0.25 mL allergy 05/23/2021 0.25 mL allergy 05/23/2021 0.25 mL allergy 05/27/2021 0.3 mL allergy 05/27/2021 [...] 0.5 mL allergy 06/24/2021 0.5 mL allergy 07/31/2021 0.35 mL allergy 07/31/2021 0.35 mL allergy 07/31/2021 0.35 mL allergy 08/06/2021 0.5 mL Mix 1 allergy 08/06/2021 0.5 mL allergy 08/06/2021 0.5 mL allergy 08/14/2021 0.5 mL Mix 1 RU allergy 08/14/2021 0.5 mL Mix 2 RL allergy 08/14/2021 0.5 mL Mix 3 JOSE LUIS allergy 08/18/2021 0.5 mL Mix 1 LL allergy 08/18/2021 0.5 mL Mix 2 JOSE LUIS allergy 08/18/2021 0.5 mL Mix 3 RU allergy 08/22/2021 0.5 mL allergy 08/22/2021 0.5 mL allergy 08/22/2021 0.5 mL allergy 08/29/2021 0.5 mL allergy 08/29/2021 0.5 mL allergy 08/29/2021 0.5 mL allergy 09/01/2021 0.5 mg allergy 09/01/2021 0.5 mg allergy 09/01/2021 0.5 mg allergy 09/08/2021 0.35 mL Mix 1 allergy 09/08/2021 0.35 mL Mix 2 allergy 09/08/2021 0.35 mL Mix 3 allergy 09/19/2021 0.5 mL allergy 09/19/2021 0.5 mL allergy 09/19/2021 0.5 mL allergy 09/22/2021 0.5 mL allergy 09/22/2021 0.5 mL allergy 09/22/2021 0.5 mL allergy 09/26/2021 0.5 mL allergy 09/26/2021 0.5 mL allergy 09/26/2021 0.5 mL allergy 10/03/2021 0.5 mL allergy 10/03/2021 0.5 mL allergy 10/03/2021 0.5 mL allergy 10/07/2021 0.5 mL Mix 1 JOSE LUIS allergy 10/07/2021 0.5 mL Mix 2 LL allergy 10/07/2021 0.5 mL Mix 3 RU allergy 10/10/2021 0.5 mL allergy 10/10/2021 0.5 mL allergy 10/10/2021 0.5 mL allergy 10/24/2021 0.35 mL Mix 1 allergy 10/24/2021 0.35 mL Mix 2 allergy 10/24/2021 0.35 mL allergy 10/29/2021 0.5 mL allergy 10/29/2021 0.5 mL allergy 10/29/2021 allergy 10/31/2021 0.5 mL allergy 10/31/2021 0.5 mL allergy 10/31/2021 0.5 mL allergy 11/05/2021 0.5 mg allergy 11/05/2021 0.5 mg allergy 11/05/2021 0.5 mg allergy 11/07/2021 0.5 mL allergy 11/07/2021 0.5 mL allergy 11/07/2021 0.5 mL allergy 11/11/2021 0.5 mL allergy 11/11/2021 0.5 mL allergy 11/11/2021 0.5 mL allergy 11/13/2021 0.5 mL allergy 11/13/2021 0.5 mL allergy 11/13/2021 0.5 mL allergy 11/18/2021 0.5 mL allergy 11/18/2021 0.5 mL allergy 11/18/2021 0.5 mL allergy 03/07/2024 0.05 mL Back of Left A rm allergy 03/07/2024 0.05 mL Back of Right Arm allergy 03/16/2024 0.10 mL Right Arm allergy 03/16/2024 0.10 mL Left Arm allergy 03/24/2024 0.15 mL allergy 03/24/2024 0.15 mL allergy 03/30/2024 0.20 mL allergy 03/30/2024 0.20 mL allergy 04/07/2024 0.25 mL allergy 04/07/2024 0.25 mL allergy 04/13/2024 0.30 mL allergy 04/13/2024 0.30 mL allergy 04/21/2024 0.35 mL allergy 04/21/2024 0.35 mL allergy 05/05/2024 right arm allergy 05/05/2024 left arm allergy 05/18/2024 0.05 mL allergy 05/18/2024 0.05 mL allergy 05/25/2024 0.05 mL allergy 05/25/2024 0.05 mL allergy 06/01/2024 0.10 mL right arm allergy 06/01/2024 0.10 mL left arm allergy 06/09/2024 0.1 mL allergy 06/09/2024 0.1 mL allergy 06/29/2024 0.20 mL allergy 06/29/2024 0.20 mL allergy 08/10/2024 RON left arm allergy 08/10/2024 DP right arm allergy 08/17/2024 0.1 mL allergy 08/17/2024 0.1 mL allergy 08/24/2024 0.15 mL allergy 08/24/2024 0.15 mL allergy 09/07/2024 0.15 mL allergy 09/07/2024 0.15 mL allergy 09/13/2024 0.20 mL allergy 09/13/2024 0.20 mL allergy 09/21/2024 0.25 mL DP left arm allergy 09/21/2024 0.25 mL MCP right arm allergy 09/28/2024 0.25 mL allergy 09/28/2024 0.25 mL allergy 10/06/2024 0.25 mL allergy 10/06/2024 0.25 mL allergy 10/12/2024 0.25 mL allergy 10/12/2024 0.25 mL allergy 10/31/2024 0.25 mL allergy 10/31/2024 0.25 mL allergy 11/17/2024 allergy 11/17/2024 allergy [...] 03/02/2025 0.30 mL allergy 03/02/2025 0.30 mL allergy 03/20/2025 0.30 mL mix DP: RA allergy 03/20/2025 0.30 mL mix RON: LA Depo- Medrol 40 mg/ml 11/22/2007 1.5 mL Depo- Medrol 40 mg/ml 09/16/2015 1.5 mL Depo- Medrol 40 mg/ml 05/01/2016 1.5 mL Depo- Medrol 40 mg/ml 05/15/2016 1 mL Depo- Medrol 40 mg/ml 03/21/2024 1 mL Dexamethasone 12/15/2005 1 mL Dexamethasone 10/28/2006 1 mL Dexamethasone 04/25/2007 1 mL Dexamethasone 06/06/2007 1.5 mL Dexamethasone 11/11/2018 1 mL Dexamethasone 11/15/2018 1 mL Dexamethasone 12/04/2021 1 mL Dexamethasone 05/26/2022 1.5 mL Medical (General) History Medical History [...] Replacement 03/17/2013 Rt Total Knee Replacement 11/15/2013 [facility]-Lumbar Fusion (L3,L4,L5) - Dr. Gipson 06/2014 Gastric Sleeve 03/26/17 Lt Eye Cataract- Dr. Zaman 02/2019 T11-L5 [facility] 04/05/2019 Rt Cataract 10/2019 Back Surgery/ Rods placed by Dr. Carver - 07/22/2022 Hospitalization History Reason Date(Month/Year) Seizures 1978 ,1995
--- OUTSIDE RECORDS SUMMARY | 2025-03-30 10:21 | XMS_ITS | Continuity of Care Document ---
Author Organization [facility], NEUROLOGY [address] [place] [address] Care Team Providers Care Filling Separator Name Role Phone IRWIN LUNA Primary Care Provider RUBY [place] Podiatric Surgeon Assessment Encounter Date Assessment Date Assessment LastModified by Organization Details LastModified Time 02/06/2025 02/06/2025 1. Neuropathy 2. Seizure disorder last seizure 19 yrs ago, July 2005 Plan 1. No changes needed. 2. I will e-scribe 2 Rx gabapentin 100 mg and Keppra XR 3. Follow up in [address] Abbey Guzman 4. She continues regular follow up with Dr. Broderick Luna Addendum: I have known patient very well for many years of my practice. She has been aware that I retired in September. Today I explained that I am fill-in neurologist for today's visit. She was scheduled to see ALLISON Ladd who moved to a position at [facility]. I explained that I have returned to work to see the patients already scheduled to see Ms. Quinn. I will be present this summer, December thru March [email or web address] Not available 02/06/2025 22:33:25 Plan of Treatment Reminders Order Date Submit Date Provider Last Modified By Organization Details Last Modified Time Details Appointments NEUROLOGY RECHECK 2025 01:45P Nevin GUZMAN DO Not available Not available Not available Lab None recorded. Referral None recorded. Procedures None recorded. Surgeries None recorded. Imaging None recorded. Medication Orders Keppra XR 500 mg tablet,ex tended release 2024 025 [facility], [address], [place], [address], 02/06/2025 13:38:26 gabapenti n 100 mg capsule 2024 025 [facility], [address], [place], [address], 02/06/2025 13:38:27 Patient TargetsNo targets recorded. Patient InstructionsNo instructions recorded. Reason for Referral None Reported. Problems Name Problem SNOMED Code Status Onset Date Resolution Date Notes Provider Name and Address Organization Details Recorded Time Neuropath y 846183856 Active 2015 From Automated Load;Prov ider: Mitali Mcadams;Sta tus: Active Not Available [facility] 3 18:07:53 Clinical finding Active 2015 From Automated Load;Prov ider: Mitali Mcadams;Sta tus: Active Not Available [facility] 3 18:07:53 Abnormal gait 50468948 Active 2017 Not Available [facility] 3 18:07:53 Impairmen t of balance 163604395 Active 2017 Not Available [facility] 3 18:07:53 Difficult y walking up stairs 478876816 Active 2017 Not Available [facility] 3 18:07:53 Muscle weakness 14361009 Active 2017 Not Available [facility] 3 18:07:53 Ankle and/or foot joint stiffness Active 2018 Not Available [facility] 3 18:07:53 Pain of left hip joint 06789380586 9100 Active 2020 Not Available [facility] 3 18:07:53 Problem Notes None recorded. Procedures Surgical History Date Name Laterality Status Provider Name and Address Organization Details Recorded Time 021 PT Therapeutic Exercise cancelled BYRON FREITAS, PT, DPT [address] [place], [address], [facility] 02/11/2021 07:47:14 021 PT Therapeutic Exercise completed BYRON FREITAS, PT, DPT [address] [place], [address], [facility] 01/21/2021 12:02:26 021 PT Evaluation - Moderate Complexity completed BYRON FREITAS, PT, DPT [address] [place], [address], [facility] 01/09/2021 11:16:19 021 PT Therapeutic Exercise completed BYRON FREITAS, PT, DPT [address] [place], [address], [facility] 01/09/2021 11:14:32 020 Tympanogram completed KERLINE JONES , AUD [address] [place], [address], [facility] 11/16/2019 14:08:22 020 Audiogram completed KERLINE JONES , AUD [address] [place], [address], [facility] 11/16/2019 14:08:14 020 cataract surgery completed Rekha Alvarado [facility] 11/16/2019 13:39:48 019 PT Gait Training completed BYRON FREITAS, PT, DPT [address] [place], [address], [facility] 12/30/2018 13:42:33 019 PT Manual Therapy completed BYRON FREITAS, PT, DPT [address] [place], [address], [facility] 12/30/2018 13:41:47 019 PT Evaluation - Moderate Complexity completed BYRON FREITAS, PT, DPT [address] [place], [address], [facility] 12/16/2018 12:57:15 019 PT Therapeutic Exercise completed BYRON FREITAS, PT, DPT [address] [place], [address], [facility] 12/16/2018 12:57:36 09/28/2 018 PT Functional Reporting, Mobility, Discharge Status completed BYRON FREITAS, PT, DPT [address] [place], [address], [facility] 03/04/2018 10:28:39 018 PT Functional Reporting, Mobility, Projected Status completed BYRON FREITAS, PT, DPT [address] [place], [address], [facility] 03/04/2018 10:28:36 018 PT Therapeutic Exercise completed BYRON FREITAS, PT, DPT [address] [place], [address], [facility] 03/04/2018 10:22:41 018 PT/OT Neuromuscular Re-Education completed BYRON FREITAS, PT, DPT [address] [place], [address], [facility] 02/02/2018 12:01:54 018 PT Therapeutic Exercise completed BYRON FREITAS, PT, DPT [address] [place], [address], [facility] 02/02/2018 12:02:43 018 PT/OT Neuromuscular Re-Education completed BYRON FREITAS, PT, DPT [address] [place], [address], [facility] 01/18/2018 12:00:55 018 PT Therapeutic Exercise completed BYRON FREITAS, PT, DPT [address] [place], [address], [facility] 01/18/2018 12:01:00 018 PT Functional Reporting, Mobility, Current Status completed BYRON FREITAS, PT, DPT [address] [place], [address], [facility] 01/04/2018 13:20:18 018 PT Functional Reporting, Mobility, Projected Status completed BYRON FREITAS, PT, DPT [address] [place], [address], [facility] 01/04/2018 13:20:15 018 PT Evaluation - Moderate Complexity completed BYRON FREITAS, PT, DPT [address] [place], [address], [facility] 01/04/2018 13:20:22 018 PT/OT Neuromuscular Re-Education completed BYRON FREITAS, PT, DPT [address] [place], [address], [facility] 01/04/2018 14:22:37 018 [facility] 15:28:58 018 Electromyography (EMG) with Nerve Conduction Study (NCV) completed Ann Ryan (Camille) [facility] 11/30/2017 11:57:23 017 Electromyography (EMG) with Nerve Conduction Study (NCV) completed Moises Nicole [facility] 02/04/2017 14:51:24 015 Back Surgery completed Yareli Joelle [facility] 02/01/2018 15:28:58 014 Knee Surgery completed Yareli Joelle [facility] 02/01/2018 15:28:58 013 Knee Surgery completed Yareli Joelle [facility] 02/01/2018 15:28:58 012 Hernia Repair completed Yareli Joelle [facility] 02/01/2018 15:28:58 010 Gastrointestinal Surgery completed Yareli Joelle [facility] 02/01/2018 15:28:58 008 Ears/Nose/Throat Surgery completed Yareli Joelle [facility] 02/01/2018 15:28:58 990 [place] Teeth Extraction completed Yareli Joelle [facility] 02/01/2018 15:28:58 Back Surgery completed Darnell Roberts [facility] 04/19/2017 10:19:39 Knee Surgery completed Darnell Roberts [facility] 04/19/2017 10:20:08 Hysterectomy completed Darnell Roberts [facility] 04/19/2017 10:20:17 cataract surgery completed Leifvan Alvarado [facility] 11/16/2019 13:39:51 Back Surgery completed Kathi Parham [facility] 08/09/2023 14:31:49 Imaging Results None recorded. Procedure Notes None recorded. Medical Equipment None Reported. Allergies Allergen ID Allergen Name Allergen Category Reaction Reaction Severity Criticality Documentation Date Start Date Code Code System Note Provider Name and Address Organization Details Recorded Time 328674 amoxicill in trihydrat e medicatio n Not available Not available Not available 04/30/20162011 73657 8 RxNorm Comme nt: Creat ed By: Surya Gloria; Creat ed Date: 2011 1:42: 36 PM; Not Available [facility] 6 12:01:21 754275 Entocort medicatio n Not available Not available Not available 04/30/20162011 38270 1 RxNorm Comme nt: Creat ed By: Surya Gloria; Creat ed Date: 2011 1:42: 17 PM; Not Available [facility] 6 14:21:10 042225 sulindac medicatio n Not available Not available Not available 04/30/20162011 87306 RxNorm Comme nt: Creat ed By: Surya Gloria; Creat ed Date: 2011 1:42: 49 PM; Not Available [facility] 6 14:21:10 277588 Reglan medicatio n Not available Not available Not available 05/01/20162011 9230 RxNorm Comme nt: Creat ed By: Surya Gloria; Creat ed Date: 2011 1:42: 27 PM; Not Available [facility] 6 08:22:17 291944 Substance with sulfonami de structure and antibacte rial mechanism of action (substanc e) medicatio n Not available Not available Not available 05/01/20162011 43953 8003 SNOMED Comme nt: Creat ed By: Surya Gloria; Creat ed Date: 2011 1:43: 00 PM; Not Available [facility] 6 08:22:17 Medications Name Sig Start Date [...] t Available gabapenti n 100 mg capsule 1 tid and 3 hs 2024 active Not Available Not Available Not Avai lable azelastin e 137 mcg (0.1 %) nasal spray [place] 2 sprays twice a day by intranas al route. active Not Available Not Available No t Available fluticaso ne propionat e 50 mcg/actua tion nasal spray,luis alberto pension [place] 1 spray twice a day by intranas [...] Keppra XR 500 mg tablet,ex tended release TAKE ONE TABLET BY MOUTH EVERY DAY IN THE MORNING and TAKE FOUR TABLETS BY MOUTH EVERY DAY AT BEDTIME DIRECTED 2024 active Not Available Not Available Not [...] in Arterial blood by Pulse oximetry Systolic And Diastolic Provider Name and Address Organization Details Last Updated DateTime 5 87713.9 2 g 74 /min 98 % 98 % 122/80 mm[Hg] Kathi Parham [facility] 5 12:58:02 Social History Question Answer Notes LastModified by Organizat ion Details LastModified Time Tobacco Smoking Status [facility] 10:30:55 What Is Your Level Of Caffeine Consumption? Moderate [email or web address] Information not available 02/06/2025 Marital Status [email or web address] Informatio n not available 04/19/2017 What Was The Date Of Your Most Recent Tobacco Screening? 04/21/2022 [email or web address] Information not available 04/21/2022 How Much Tobacco Do You Smoke? No [email or web address] Information not available 04/19/2017 Sex: Female Functional Status Question Answer Note LastModified by Organizat ion Details LastModified Time What is your level of alcohol consumption? 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 Information not available 04/19/2017 Mental Status None [...] N Anemia N Ulcers N Heart Attack ([place]) N Neurological Problems Y Diabetes N Bleeding [...] influenza, unspecified formulation 7 completed Not Available [facility] 06/04/2023 18:07:54 pneumococcal, unspecified formulation 7 completed Not Available [facility] 06/04/2023 18:07:54 Influenza, split virus, quadrivalent, preservative 0 completed Not Available [facility] 06/04/2023 18:07:54 SARS-COV-2 (COVID-19) vaccine, UNSPECIFIED 1 completed Not Available [facility] 06/04/2023 18:07:54 SARS-COV-2 (COVID-19) vaccine, UNSPECIFIED 1 completed Not Available [facility] 06/04/2023 18:07:54 Past Encounters Encounter ID Performer Location Encounter Start Date Encounter Closed Date Diagnosis/Indication Diagnosis SNOMED-CT Code Diagnosis ICD10 Code Diagnosis IMO Codes Diagnosis Note [id number] MITALI MCADAMS MD NEUROLOGY [address] [place] [address] 02/06/2025 12:44:50 02/06/2025 13:40:24 Neuropathy 499072749 G62.9 Seizure disorder 0989463 02 G40.909 45621 Health Concerns Section Related Observation LastModified by Organization Detai ls LastModified Time None Recorded Concern Status LastModified by Organization Details LastModified Time None Recorded Payers Encounter Date Sequence Insurance Name Policy Number Policy Osborne Covered Member ID Osborne Member ID Guarantor Name 02/06/2025 2 [employer] LIFE ( - MEDICARE SUPPLEMENT) Fani Mondragon [id number] Fani uLcerojessica 02/06/2025 1 [facility] [id number] Fani Aracelis Lucerojessica [id number] Fani Lucerojessica Notes Date Note Type Note Provider Name and Address Organization Details Recorded Time 02/06/2025 text/html ROS as noted in the HPI 74 yr old woman from [facility] Dr. Broderick Luna She has neuropathy takes gabapentin 100 mg x 1 caps tid and 3 hs also history of seizures brand name Keppra XR 500 mg x 1 in Am and 4 hs MITALI MCADAMS MD [address] [place] [address], [address], [facility] 02/06/2025 22:34:10 OBGyn Episode No OBEpisode recorded.
--- OUTSIDE RECORDS SUMMARY | 2025-03-30 10:21 | XMS_ITS | Encounter Summary ---
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) to steady your nerves or to get [...] Functional Status documented as of this encounter Plan of Treatment Upcoming Encounters Date Type Department Care Team (Late st Contact Info) Description 03/21/2026 11:40 AM EDT Office Visit [facility] Nephrology, Bone & Mineral Metabolism [address], [address] [place] [address] Edinson Reyes MD [address] [place] [address] documented as of this encounter Visit Diagnoses [...] documented as of this encounter Care Teams Blasting Machine Operator Relationship Specialty Start Date End Date Gary Roberts MD [address] [place] [address] PCP - General 10/18/20 documented as of this encounter
--- OUTSIDE RECORDS SUMMARY | 2025-03-30 10:21 | XMS_ITS | Encounter Summary ---
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 nerves or to get [...] Teresa Duval documented as of this encounter Plan of Treatment Upcoming Encounters Date Type Department Care Team (Late st Contact Info) Description 03/21/2026 11:40 AM EDT Office Visit [facility] [place] Nephrology, Bone [facility] Mineral Metabolism [address] [facility], [address] [place] [address] Edinson Reyes MD [address] [place] [phone] documented as of this encounter Visit [...] documented as of this encounter Care Teams Endodontic Assistant Relationship Specialty Start Date End Date Gary Roberts MD [address] [place] [address] PCP - General 10/18/20 documented as of this encounter
[2025-03-30 10:48] LABS: Hematocrit 34.3 % (37.0-47.0); Hemoglobin 11.0 g/dL (12.2-16.2); Immature Granulocytes % 0.5 %; Mean Corpuscular HGB Conc 32.1 g/dL (31.8-35.4); Mean Corpuscular Hemoglobin 28.1 pg (27.0-31.2); Mean Corpuscular Volume 87.7 fl (81-99); Nucleated Red Blood Cells % 0 %; Platelet Count 258 K/mm3 (142-424); Red Blood Count 3.91 M/mm3 (4.20-5.40); Red Cell Distribution Width-SD 47.6 fL; White Blood Count 9.2 K/mm3 (4.8-10.8)
[2025-03-30 11:49] LABS: Albumin Level 3.6 g/dl (3.5-5.0); Chloride 102 mmol/L (98-107); Potassium 4.5 mmoL/L (3.5-5.1); Sodium 135 mmol/L (136-145)
[2025-03-30 11:52] LABS: Alanine Aminotransferase 45 U/L (12-78); Albumin/Globulin Ratio 1.3 (1.1-1.8); Alkaline Phosphatase 79 U/L (38-126); Anion Gap 6.5 mEq/L (5-15); Aspartate Amino Transferase 47 U/L (14-36); Bilirubin,Total 0.7 mg/dl (0.2-1.3); Blood Urea Nitrogen 25 mg/dl (7-17); Calcium 8.9 mg/dl (8.4-10.2); Carbon Dioxide 31 mmol/L (22.0-30.0); Creatinine,Serum 0.90 mg/dl (0.52-1.04); Estimated Glomerular Filt Rate 61 ml/min (>60); GFR (African American) 74 ML/MIN (>60); Globulin 2.7 g/dL (1.3-3.2); Glucose 114 mg/dl (74-100); Total Protein,Serum 6.3 g/dl (6.3-8.2)
== END 2025-03-30 23:59 | disposition home or self-care (01) ==
LOC: LAB 10:10
PROVIDERS: PCP Family Medicine; Visit Provider Podiatrist
DX: M89.8X7 Other specified disorders of bone, ankle and foot (principal); D72.829 Elevated white blood cell count, unspecified
CPT/HCPCS: 36415; 80053; 85025

== ENCOUNTER 2025-04-04 11:52 | Day surgery (SDC) | payer MEDICARE, OTHER, SELFPAY ==
[2025-03-13 14:07] VITALS: BMI 31.8
[2025-04-04] VITALS (10 sets, daily range): BP systolic 122–165; BP diastolic 53–87; PULSE 64–77; RESP 16–17; TEMP 36.2–43; O2SAT 93–98
[2025-04-04] MEDS: 0.9 % SODIUM CHLORIDE 1000ML 1,000 ML 25 ML IV (13:00)
--- NOTE | 2025-04-04 13:15 | P.PNANES_ITS ---
[facility] Disclaimer: The information contained in this section may have been updated after the patient was seen, as this information can be updated by other users. Medical History Elevated WBCs Atherosclerosis of [place] arteries of extremities with intermittent claudication, left leg Elevated BP without diagnosis of hypertension Seasonal allergies GERD (gastroesophageal reflux disease) Seizures Osteoporosis Asthma Hyperlipemia Hypertension Surgical History History of hernia repair Hx of cholecystectomy Hx of tonsillectomy H/O: hysterectomy History of left hip replacement History of bilateral knee replacement Previous back surgery Family History Other Family history of cancer Family history of diabetes mellitus Family history of heart disease Family history of hypertension Social History Smoking Status: Never smoker second hand exposure: No alcohol intake: never substance use type: denies use current occupational status: retired Travel in the last 8 weeks?: None household members: spouse housing: house current occupational exposures/hazards: No caffeine: Yes [facility] Anesthesia Checklist Patient Identification Patient Identification: Arm Band Structural Data Admitted From: Home Planned Operative Procedure/s: Left Foot Exostectomy Consent for Planned Operative Procedure(s) Verified: Yes Verified Documents: Surgical Consent and History and Physical NPO Status Verified Time NPO: 00:00 Additional verifications Anesthesia Reactions: No Hx Blood Transfusions: No Blood Transfusion Reaction: No Airway Assessment Mallampati Score:: Class II C-Spine Mobility Assessed: Yes TMJ Mobility Assessed: Yes Dentition: Good Dentition Neurological Assessment Level of Consciousness: Awake, Alert and Appropriate Anesthesia Plan Anesthesia Risk discussed: Yes Anesthesia Plan: Verified ASA Class: II Anesthesia Type: General
[2025-04-04] MEDS: CLINDAMYCIN PHOSPHATE/D5W 900 MG/50 ML PIGGYBACK 100 MG IV (13:40)
[2025-04-04] MEDS: BUPIVACAINE 0.5% 30ML VIAL 150 MG (14:07)
--- NOTE | 2025-04-04 14:33 | EXP.ANES.I ---
[facility] Anesthesia Record Part I Anesthesia Record I Intake, IV Amount: 900 Hydration: Adequate Estimated blood loss (mL): 5 Urine output (mL): 0 Blood Products used (#): none Blood Pressure: 133/78 SaO2: 94 Pulse Rate: 77 Airway Patency: Patent Respiratory Rate: 16 Temperature: 98 F Patient is:: Drowsy and Stable Stable to PACU at:: 14:30
--- NOTE | 2025-04-04 14:36 | P.OP_ITS ---
Date of procedure: 04/04/25 Pre-op Diagnosis:: Left foot exostosis/bone spur Neuritis Post-op Diagnosis:: Same Procedure performed:: Left foot exostectomy/partial resection tarsal (81102) Nerve decompression, application of amniotic graft Surgeon:: Lexie Hunt DPM HUMANITIES DEPARTMENT CHAIR:: Arnoldo Ahuja Anesthesia: GETA and local (20cc 0.5% marcaine plain) Estimated blood loss (mL): 10 Clinical Note:: Patient is a 74F who presents with left foot pain and deformity. Explained due t o the sequela of the second metatarsal fracture displacing and shortening there is an abnormal parabola with the second ray now being short. As she is walking she is putting more stress to the first and third MTPJ's which is causing metatarsalgia symptoms and pain to the ball of the foot. Due to this deformity it is also causing the second toe to ride more dorsally and overlap the third toe. Also discussed the left flatfoot is worse on the right, the left dropfoot history could contribute to this. Patient has tried and failed conservative care including: modification of activity, modification of shoe gear, toe spacers, toe sleeves, hernán taping options, Darco splint, orthotics/inserts, wide deep inlay supportive shoes, fracture boot, Voltaren 1% gel, metatarsal pads, RICE protocol, NSAIDs, stretching, formal physical therapy. She has seen multiple providers and exhausted traditional conservative therapy options. We discussed alternative therapies, she declined fat pad/Liposana injections. Discussed conservative or surgical treatment options. Discussed surgery to include hammertoe repair, MPJ capsulotomy, possible plantar plate repair, met osteotomy, ORIF 2nd met malunion, flatfoot reconstruction, midfoot exostectomy. Patient does not want a lengthy left foot reconstruction. Her goals: Patient wants the dorsal exostosis/spur removed so she can comfortably fit issue for fall/winter. The patient has been instructed on the planned procedure, risk versus benefits of the non-surgery vs procedure to including but not limited to: bleeding, infection, nerve and blood vessel damage, need for further surgery, delay in healing of soft tissue or bone, incomplete removal of spur, recurrence of spur, progression of deformity, intraop fracture, failure of bones to heal, delayed/non-union, mal-union, prolonged/permanent swelling/pain and recovery, prolonged swelling, CRPS/RSD, DVT/PE and anesthetic complications including . Discussed increased risk of wound healing complications due to vascular calcifications. Did have pre-op testing including ABIs, saw cardiology for CT angio which showed no significant arterial inflow or outflow disease in the lower extremity. Patient understands if there is wound complications, it could lead to infection warranting oral or IV antibiotics, gangrene necessitating toe amputation. No guarantees were given. All questions fully answered. The patient verbalized understanding and agreed to proceed with surgery. Verbal and written consent was obtained. Medical and cardiac clearance granted. Operative findings:: Significant forefoot deformity noted including crossover left 2nd and 3rd toes, pes planus with history of dropfoot. Palpable firm bone spur noted to the dorsal aspect of the midfoot over the first metatarsal cuneiform joint. There is a medial dorsal cutaneous nerve was noted with minimal soft tissue coverage between the nerve and the bone spur, likely source of pain from nerve entrapment. Synovitis around the nerve was debrided decompressing the nerve. Tarsal bone was resected removing the exostosis/bone spur. Bone was soft consistent with decreased bone density/osteoporosis. No purulence malodor or signs of infection noted. Operative note:: On this date and time, the patient was deemed an appropriate surgical candidate. With informed consent signed, the patient was taken to the operating theater. The patient was positioned supine. General anesthesia was induced. No tourniquet was applied. The left lower extremity was prepped and draped in normal sterile fashion. 20cc 0.5% marcaine plain given in local forefoot and ankle block. IV Clinda infused. Left exostectomy/partial tarsal resection: Attention was directed to the dorsal medial midfoot where a linear incision was mapped out extending over the first metatarsal-cuneiform joint directly over the bone spur. Dissection was carried through skin to subcutaneous tissue with care taken to maintain surgical hemostasis and safely retract neurovascular structures. The medial dorsal cutaneous nerve was identified and noted to be entrapped within some synovitic scar tissue. It was retracted during this portion of the procedure. Palpable and visualized dorsal spurring noted over the first MCP joint. Utilizing a rongeur the bone spur was excised in total and sent to pathology specimen. Hand rasp was utilized to smooth down to near bony irregularity so there is a smooth bone without dorsal prominence. Wound was flushed with copious amounts normal sterile saline. Nerve decompression, application of amniotic graft: The medial dorsal cutaneous nerve was identified. Utilizing 15 blade and forceps the synovitic tissue was debrided from around the nerve decompressing it. A 2x3cm amniotic graft was then wrapped around the nerve to prevent scar tissue and adhesions to help decrease nerve symptoms. Subcutaneous tissue reapproximated with 3-0 Vicryl in a running fashion. Monocryl used to reapproximate the skin in a running fashion. Skin was very thin and easily bruised. Dermabond Prineo applied over incision. The skin was cleansed. Betadine soaked gauze, dry sterile dressing was applied to the foot. The patient was awoken from anesthesia and transferred to recovery with vital signs stable and neurovascular status intact. Patient appeared to tolerate procedure and anesthesia well without complication. Materials: Paligen amniotic graft x 1 (2x3cm), Dermabond Prineo x1 Discharge/Plan: Patient is to maintain dressing clean dry and intact. Ice to the top of the foot and elevate on two pillows. Partial weight bearing to the left lower extremity in post op shoe with walker. Avoid FWB to avoid increased tension/edema to the foot which could cause wound dehiscence. Follow up in one week as scheduled for incision check and dressing change. Condition: stable Disposition: same day Specimens:: Left foot bone spur Complications:: None
--- NOTE | 2025-04-04 15:00 | XR_ITS ---
FINAL REPORT CLINICAL HISTORY: s/p foot exostectomy/dorsal midfoot spur removal COMPARISON: None FINDINGS: LEFT FOOT Three views of the left foot demonstrate no acute fracture or dislocation. There is a moderate plantar spur. Old healed fracture deformity of the 2nd and 4th metatarsals is noted. There is mild narrowing of the first MTP joint space. The soft tissues are unremarkable. IMPRESSION: Degenerative/chronic changes without acute bony abnormality. Reviewed, Interpreted and Dictated by Timmy Jay MD Transcribed by Nahomy Vides Authenticated and [facility]
--- NOTE | 2025-04-06 07:45 | EXP.ANES.II ---
[facility] Anesthesia Record Part II Anesthesia Record Part II Discharge Time: 15:00 Destination: Surgical Day Care (OP Surgery) PACU nurse assessment reviewed?: Yes Patient Condition:: Good Anesthesia Complications:: None Swallowing reflex intact?: Yes Airway Patency: Patent Cyanosis?: No Blood Pressure: 154/86 SaO2: 98 Respiratory Rate: 16 Pulse Rate: 69 Temperature: 98 F Mental Status: Alert & Oriented Pain level:: 0 Nausea and/or vomitting:: None Intake, IV Amount: 0 Hydration: Adequate
[2025-04-06 07:46] VITALS: BP 154/86; PULSE 69; RESP 16; TEMP 36.6; O2SAT 98
--- NOTE | 2025-04-09 08:15 | EXP.HP ---
History of Present Illness *Admission Date: 04/04/25 *Reason for visit:: Left foot surgery *History of present illness: -Patient lives at home with her , ambulates with a cane and has a antalgic steppage gait due to left dropfoot. Explained the ideal surgery for her may not be the most appropriate given her ability/restrictions to function postoperatively. I explained that if patient cannot be strict nonweightbearing with a rolling knee scooter or walker, the surgery plan may need to be modified in order to get a satisfactory outcome. I explained some procedures can be done where the patient can have some protected weightbearing in the fracture boot to the heel with a walker. I also have concerns with her balance and gait. She has been doing to formal physical therapy to help strengthen the left side prior to doing any surgical intervention, which has helped. Patient feels comfortable that she can successfully ambulate in a fracture boot with a walker on the left side. [facility] Disclaimer: The information contained in this section may have been updated after the patient was seen, as this information can be updated by other users. Medical History Elevated WBCs Atherosclerosis of paimiut arteries of extremities with intermittent claudication, left leg Elevated BP without diagnosis of hypertension Seasonal allergies GERD (gastroesophageal reflux disease) Seizures Osteoporosis Asthma Hyperlipemia Hypertension Surgical History History of hernia repair Hx of cholecystectomy Hx of tonsillectomy H/O: hysterectomy History of left hip replacement History of bilateral knee replacement Previous back surgery Family History Other Family history of cancer Family history of diabetes mellitus Family history of heart disease Family history of hypertension Social History (Updated 04/04/25 @ 13:17 by Arnoldo Ahuja CRNA) Smoking Status: Never smoker second hand exposure: No alcohol intake: never substance use type: denies use current occupational status: retired Travel in the last 8 weeks?: None household members: spouse housing: house current occupational exposures/hazards: No caffeine: Yes Have you lived/traveled outside US in past 30 days?: No Contact w/someone who lives/traveled outside US past 30 days?: No Exposure to someone with infectious disease in past 14 days?: No Do you have a fever (greater than 100.4 F or 38 C)?: No Have you tested positive for COVID-19?: No Exposed to someone with COVID-19 in past 14 days?: No Do you have a sore throat?: No Do you have a cough?: No Do you have any weakness?: No Do you have any diarrhea?: No Are you experiencing any unusual bleeding?: No Do you have any muscle aches/pain?: No Do you have any abdominal pain?: No Are you experiencing loss of taste or smell?: No Other Medical History Have you received the Flu Vaccine for this season: Yes Have you received the Pneumonia Vaccine: Yes Review of Systems Review of Systems Review of systems:: pertinent systems reviewed and negative unless documented below Constitutional Constitutional: Reports system reviewed and no additional complaints, except as documented Eyes Eyes: Reports system reviewed and no additional complaints, except as documented ENT Ears, Nose, Mouth, and Throat: Reports system reviewed and no additional complaints, except as documented *Cardiovascular Cardiovascular: Reports system reviewed and no additional complaints, except as documented *Respiratory Respiratory: Reports system reviewed and no additional complaints, except as documented *Gastrointestinal Gastrointestinal: Reports system reviewed and no additional complaints, except as documented *Genitourinary Genitourinary: Reports system reviewed and no additional complaints, except as documented *Musculoskeletal Musculoskeletal: Reports arthralgias, Reports deformity, Reports limited range of motion, Reports numbness and Reports tingling Integumentary/Breasts Skin/Breast: Reports system reviewed and no additional complaints, except as documented *Neurologic Neurologic: Reports system reviewed and no additional complaints, except as documented, Reports numbness and Reports tingling Psychiatric Psychiatric: Reports system reviewed and no additional complaints, except as documented Meds Home Medications and Allergies Home Medications ?Medication ?Instructions ?Recorded ?Confirmed ?Type aller xt-weed pollen-goldenrod 10 ml IJ WEEKLY allergies 06/18/20 04/04/25 History 1:20 injection solution allopurinol 300 mg tablet 300 mg PO DAILY gout 06/18/20 04/04/25 History azelastine 137 mcg (0.1 %) nasal 137 mcg intranasal BID allergies 06/18/20 04/04/25 History spray fluticasone propionate 50 50 mcg inhalation DAILY allergies 06/18/20 04/04/25 History mcg/actuation blister powder for inhalation olmesartan 40 0.5 each PO DAILY bp 06/18/20 04/04/25 History mg-hydrochlorothiazide 25 mg tablet olopatadine 0.2 % eye drops 2.5 ml ophthalmic (eye) NEEDED 06/18/20 04/04/25 History PRN allergies rosuvastatin 10 mg tablet 10 mg PO DAILY Cholesterol 06/18/20 04/04/25 History ivigje-kckkazdc-gqbcesi (pork) 1 cap PO TID #90 caps 03/28/24 04/04/25 Rx 20,000-63,000-84k unit capsule, del rel (Zenpep) lifitegrast 5 % eye drops in a 1 drp Eye-Both QAM AND QPM DRY EYES 06/19/24 04/04/25 History dropperette (Xiidra) omeprazole 40 mg capsule,delayed See Rx Instructions .Route 11/20/24 04/04/25 Rx release .COMPLEX #90 caps calcitriol 0.25 mcg capsule 0.25 mcg PO DAILY 11/21/24 04/04/25 History albuterol sulfate 90 mcg/actuation 2 puff inhalation Q4-6H PRN soa 03/27/25 04/04/25 History aerosol inhaler estradiol 10 mcg vaginal tablet 10 mcg vaginal 2XW dryness 04/03/25 04/04/25 History furosemide 20 mg tablet 20 mg PO DAILY DIEURETIC 04/03/25 04/04/25 History gabapentin 100 mg capsule 500 mg PO DAILY TINGLING FEET 04/03/25 04/04/25 History levetiracetam 500 mg 2,500 mg PO DAILY seizures 04/03/25 04/04/25 History tablet,extended release 24 hr New Prescriptions to Start Prescriptions: Allergies Allergy/AdvReac Type Severity Reaction Status Date / Time adhesive tape Allergy Mild Rash Verified 04/04/25 12:51 amoxicillin Allergy Unknown Other Verified 04/04/25 12:51 budesonide (From Entocort EC) Allergy Unknown Chest Pain Verified 04/04/25 12:51 metoclopramide (From Reglan) Allergy Unknown Other Verified 04/04/25 12:51 sulindac Allergy Unknown Unknown Verified 04/04/25 12:51 allergy reaction Exam Data for Last 24 hours Vital signs and Labs for Last 24 Hours: Temp Pulse Resp BP Pulse Ox O2 Del Method 97.6 F 77 16 165/75 H 97 Room Air 04/04/25 15:31 04/04/25 15:31 04/06/25 07:46 04/04/25 15:31 04/04/25 15:31 04/04/25 15:31 I & O for Last 24 hours: Intake & Output 04/06/25 04/07/25 04/08/25 04/09/25 11:59 11:59 10:59 11:59 Intake Total 0 / 0 Balance 0 / 0 *Routine HEENT Exam Head: Present normocephalic Eye: Present EOMI ENT: Present mucous membranes moist *Routine Neck Exam Neck: Present supple *Routine Respiratory Exam Respiratory: Present normal respiratory effort *Routine Cardiovascular Exam Cardiovascular: Present RRR *Routine Abdominal Exam Abdominal: Present soft *Routine Rectal Exam Rectal:: deferred *Routine Genitalia Exam Genitalia:: deferred *Routine Extremities Exam Extremities: Present joint swelling *Routine Skin Exam Skin: Present intact *Routine Neurological Exam Neurological: Present alert and oriented X3 Assessment and Plan *Assessment and plan (1) Injury of plantar plate of left foot: Status: Acute Qualifiers: Encounter type: sequela Qualified Code(s): S99.922S - Unspecified injury of left foot, sequela Category: Medical Code(s): S99.922A - Unspecified injury of left foot, initial encounter (2) Exostosis of left foot: Status: Acute Category: Medical Code(s): M89.8X7 - Other specified disorders of bone, ankle and foot (3) Fat pad atrophy of foot: Status: Acute Category: Medical Code(s): L90.9 - Atrophic disorder of skin, unspecified (4) Acquired left foot drop: Status: Acute Category: Medical Code(s): M21.372 - Foot drop, left foot (5) Crossover toe deformity of left foot: Status: Acute Category: Medical Code(s): M20.5X2 - Other deformities of toe(s) (acquired), left foot (6) Metatarsalgia of left foot: Status: Acute Category: Medical Code(s): M77.42 - Metatarsalgia, left foot (7) Lumbar radiculopathy: Status: Acute Category: Medical Code(s): M54.16 - Radiculopathy, lumbar region (8) Fracture of second metatarsal bone with malunion: Status: Acute Qualifiers: Fracture type: closed Fracture alignment: displaced Laterality: left Qualified Code(s): S92.322P - Displaced fracture of second metatarsal bone, left foot, subsequent encounter for fracture with malunion Category: Medical Code(s): S92.323P - Displaced fracture of second metatarsal bone, unspecified foot, subsequent encounter for fracture with malunion Plan Pre-op Indications: Patient is a 74F who presents with left foot pain and deformity. Explained due to the sequela of the second metatarsal fracture displacing and shortening there is an abnormal parabola with the second ray now being short. As she is walking she is putting more stress to the first and third MTPJ's which is causing metatarsalgia symptoms and pain to the ball of the foot. Due to this deformity it is also causing the second toe to ride more dorsally and overlap the third toe. Also discussed the left flatfoot is worse on the right, the left dropfoot history could contribute to this. Patient has tried and failed conservative care including: modification of activity, modification of shoe gear, toe spacers, toe sleeves, hernán taping options, Darco splint, orthotics/inserts, wide deep inlay supportive shoes, fracture boot, Voltaren 1% gel, metatarsal pads, RICE protocol, NSAIDs, stretching, formal physical therapy. She has seen multiple providers and exhausted traditional conservative therapy options. We discussed alternative therapies, she declined fat pad/Liposana injections. Discussed conservative or surgical treatment options. Discussed surgery to include hammertoe repair, MPJ capsulotomy, possible plantar plate repair, met osteotomy, ORIF 2nd met malunion, flatfoot reconstruction, midfoot exostectomy. Patient does not want a lengthy left foot reconstruction. Her goals: Patient wants the dorsal exostosis/spur removed so she can comfortably fit issue for fall/winter. The patient has been instructed on the planned procedure, risk versus benefits of the non-surgery vs procedure to including but not limited to: bleeding, infection, nerve and blood vessel damage, need for further surgery, delay in healing of soft tissue or bone, incomplete removal of spur, recurrence of spur, progression of deformity, intraop fracture, failure of bones to heal, delayed/non-union, mal-union, prolonged/permanent swelling/pain and recovery, prolonged swelling, CRPS/RSD, DVT/PE and anesthetic complications including . Discussed increased risk of wound healing complications due to vascular calcifications. Did have pre-op testing including ABIs, saw cardiology for CT angio which showed no significant arterial inflow or outflow disease in the lower extremity. Patient understands if there is wound complications, it could lead to infection warranting oral or IV antibiotics, gangrene necessitating toe amputation. No guarantees were given. All questions fully answered. The patient verbalized understanding and agreed to proceed with surgery. Verbal and written consent was obtained. ? Medical clearance per PCP. Necessary labs and pre-op testing ordered: CBC, CMP, Ha1c (6.2% in past borderline DM), vit D, EKG, CXR. Required clearances granted. ? Plan surgery for: Wed04/04/25 left foot exostectomy/partial resection tarsal (30302) (confirmed: patient does not want hammertoe repair or reconstruction)
== END 2025-04-04 16:10 | disposition home or self-care (01) ==
PROVIDERS: PCP Family Medicine; Visit Provider Podiatrist
PROC: (CPT 28122; principal; 2025-04-04 13:30)
DX: M25.775 Osteophyte, left foot (principal); S92.322S Displaced fracture of second metatarsal bone, left foot, sequela; L90.9 Atrophic disorder of skin, unspecified; M21.372 Foot drop, left foot; M54.16 Radiculopathy, lumbar region; I10 Essential (primary) hypertension; E78.5 Hyperlipidemia, unspecified; M81.0 Age-related osteoporosis without current pathological fracture; I70.219 Atherosclerosis of native arteries of extremities with intermittent claudication, unspecified extremity; Z88.0 Allergy status to penicillin; Z90.710 Acquired absence of both cervix and uterus; Z90.49 Acquired absence of other specified parts of digestive tract; Z96.653 Presence of artificial knee joint, bilateral; Z88.8 Allergy status to other drugs, medicaments and biological substances; X58.XXXS Exposure to other specified factors, sequela
CPT/HCPCS: 28122; 64708; 73630; 88304; 96374; J0665; J0736; J1100; J2003; J2405; J2704; J3010; J7030; Q4173

== ENCOUNTER 2025-05-07 13:28 | Outpatient (CLI) | payer MEDICARE, OTHER, SELFPAY ==
--- OUTSIDE RECORDS SUMMARY | 2025-03-19 13:10 | XMS_ITS | Encounter Summary ---
[facility] Address [address] [place] [address] Care Team Providers Care Filler Mixer Name Role Phone Gary Roberts MD Primary Care Provider Reason for Referral * Diagnostic Imaging (Routine) - Authorized Specialty Diagnoses / Procedures Referred By Contac t Referred To Contact Radiology Diagnoses Encounter for screening mammogram for breast cancer Procedures Mammo Screening Digital Tomosynthesis Bilateral With CAD Martha Hutchinson MD [address] [place] [address] Phone: tel: fax: [facility] [address] [place] [address] Phone: tel: Referral ID Status Reason Start Date Expiration Date V isits Requested Visits Authorized [id number] Authorized 03/19/2025 06/18/2026 1 1 Reason for Visit * Reason Comments Gynecologic Exam Annual, pt c/o bladd er leaking with bending over. Encounter Details Date Type Department Care Team (Late st Contact Info) Description 03/19/2025 2:10 PM EDT Office Visit [facility] [address] [place] [phone] Martha Hutchinson MD [address] [place] [address] Women's annual routine gynecological examination (Primary Dx); [...] of sciatica and drop foot managed by blister packing machine tender. She also reports a history of a [...] of the external genitalia including Bartholin's and [place]'s glands. : urethral meatus normal; urethra normal: [...] Medications Ordered This Visit Medications nystatin (MYCOSTATIN) 652342 UNIT/GM powder Sig: Apply topically to the appropriate area as directed 2 (Two) Times a Day. For 14 days or until symptom resolution Dispense: 30 g Refill: 3 Patient or patient desk representative verbalized consent for the use of Ambient Listening during the visit with Martha Hutchinson MD for chart documentation. 03/19/2025 15:53 EDT This note was electronically signed. Martha Hutchinson MD March 19, 2025 documented in this encounter Plan of Treatment Upcoming Encounters Date Type Department Care Team (Late st Contact Info) Description 09/17/2025 11:10 AM EDT Appointment [facility] [place] [phone] 03/28/2026 11:10 AM EDT Office Visit [facility] [address] [phone] Martha Hutchinson MD [address] [address] Scheduled Orders Name Type Priority Associated Diagnoses Orde r Schedule Mammo Screening Digital Tomosynthesis Bilateral With CAD Imaging Routine Encounter for screening mammogram for breast cancer Expected: 09/15/2025, Expires: 03/19/2026 documented as of this encounter Visit Diagnoses Diagnosis Women's annual routine gynecological examination- Primary Encounter for screening mammogram for breast cancer Vaginal atrophy Postmenopausal atrophic vaginitis documented in this encounter Care Teams Filler Mixer Relationship Specialty Start Date End Date Gary Roberts MD [address] [facility] [place] [address] PCP - General 11/11/15 documented as of this encounter
--- OUTSIDE RECORDS SUMMARY | 2025-03-28 10:00 | XMS_ITS | Encounter Summary ---
Author Organization [facility] Address [address] [place] [address] Care Team Providers Care Market Development Specialist Name Role Phone Gary Roberts MD Primary Care Provider +1- [phone] Reason for Referral * Consultation (Routine) - Authorized Specialty Diagnoses / Procedures Referred By Contac t Referred To Contact Diagnoses Age-related osteoporosis without current pathological fracture Eric Barrientos MD [address] [place] [address] Phone: tel: fax: Referral ID Status Reason Start Date Expiration Date V isits Requested Visits Authorized [id number] Authorized 03/28/2025 09/27/2026 1 1 Reason for Visit * Reason Comments Follow-up Osteoporosis Encounter Details Date Type Department Care Team (Latest Contact Info) Description 03/28/2025 11:00 AM EDT Pharmacist Visit [facility] [address], [address] [place] [address] Chapo Santoro, PharmD [address] [place] [address] Age-related osteoporosis without current pathological fracture (Primary Dx) Social History Tobacco Use Types Packs/Day Years Used Date Smoking Tobacco: Never Passive Smoke Exposure: Never Smokeless Tobacco: Never Comments:Never Used but work ed in tobacco abdul and ata. Alcohol Use Standard Drinks/Week Comments Yes 2 (1 standard drink = 0.6 oz pur e alcohol) social PHQ-2 Answer Date Recorded Patient Health Questionnaire-2 Score 0 03/29/2025 PHQ-9 Answer Date Recorded Patient Health Questionnaire-9 Score 0 11/01/2024 AUDIT-C Answer Date Recorded Frequency of Alcohol Consumption Not on file 03/28/2025 Q2: How many drinks containi ng alcohol do you have on a typical day when you are drinking? Patient does not drink Frequency of Binge Drinking Not on file 03/08 CAGE ASSESSMENT Answer Date Recorded Cage unable [...] drink first t figueroa in the morning (EYE-MAIN GALLEY SCULLION) to steady your nerves or to get rid of a hangover? 0 07/23/2022 CAGE Questionnaire Score 0 023 Comments No Sex and Gender Information Value Date Recorded Sex Assigned at Female 05/15/2021 3:09 PM EST Legal Sex Female 8:10 PM EDT Gender Identity Female 05/15/2021 3:09 PM EST Sexual Orientation Straight 05/15/2021 3: 09 PM EST documented as of this encounter Functional Status documented as of this encounter Miscellaneous Notes * Patient Instructions - Chapo Santoro PharmD - 03/28/2025 11:00 AM EDT Prolia now. Labs 2 weeks after dose to check calcium. Follow up in 7 months with labs and DXA with provider * Progress Notes - Chapo Santoro PharmD - 03/28/2025 11:00 AM EDT Telehealth Statement Patient Verification Patient identity has been confirmed using name and date of ? Yes Authorizations and Agreements/Telemedicine Consent sent and consent confirmed? Yes Patient Location: Home/Other Patient confirms they are physically located in [place]? Yes If the patient is not physically located in [place], the provider has confirmed with [facility] thatthe provider is authorized to provide services in patient's stated location? N/A Provider Location: [facility] facility Audio and video or audio only? Audio only Total visit time: 20 minutes HPI: Fani Mondragon is a 74 y.o. female with a past medical history of osteoporosis. Fani Mondragon presents to [facility] for evaluation of Denosumab (Prolia) therapy. Patient expresses they have tolerated regimen well. Calcium Vitamin D Supplementation: calcitriol 0.25mcg once daily, Citracal 1 tablet once daily Medication Adherence: Patient reports 0 missed doses of Denosumab (Prolia) since last visit and 0 missed doses of Ca/VitD. Tolerability: Patient reports excellent tolerability. She endorses the following tolerability issues: none Pharmacotherapy History: Prolia (denosumab): 05/2023, 01/2024, 09/2024 Forteo (teriparatide): started 06/2021 and completed 1 year at reduced dose of 5/7 days weekly Fracture History: negative Radiation History: negative Esophageal abnormalities: positive - GERD Menopause status: postmenopausal Planned dental procedures: negative Bone Biopsy: None ASCVD: negative Home Medications: Current Medications[1] Objective: Labs: Potassium, Plasma (mmol/L) Date Value 09/14/2024 4.0 Creatinine, Plasma (mg/dL) Date Value 09/14/2024 0.93 08/25/2024 1.00 08/11/2024 1.37 (H) eGFRcr (mL/min/1.73m*2) Date Value 09/14/2024 65.0 08/25/2024 59.6 08/11/2024 40.9 Albumin, Plasma (g/dL) Date Value 09/14/2024 4.2 08/25/2024 4.3 08/11/2024 4.1 PTH Intact Total (pg/mL) Date Value 08/25/2024 95 (H) 04/09/2022 68 Ionized Calcium, Whole Blood (mg/dL) Date Value 07/22/2022 5.4 (H) 07/22/2022 4.4 (L) 04/06/2019 4.4 (L) Total Calcium, Plasma (mg/dL) Date Value 09/14/2024 9.0 08/25/2024 9.6 08/11/2024 9.1 Phosphorus, Plasma (mg/dL) Date Value 09/14/2024 3.1 08/25/2024 4.1 08/11/2024 4.1 Magnesium, Plasma (mg/dL) Date Value 12/22/2023 2.5 (H) Vitamin D 25 Hydroxy (ng/mL) Date Value 08/11/2024 48.1 12/22/2023 45.9 04/19/2023 42.7 Bone Specific Alkaline Phosphatase (ug/L) Date Value 08/11/2024 12.8 12/22/2023 14.3 04/19/2023 13.8 12/17/2022 19.6 07/03/2022 19.7 04/09/2022 21.0 OSTEOCALCIN BY ECIA (ng/mL) Date Value 08/11/2024 11 12/22/2023 28 04/19/2023 29 12/17/2022 58 (H) 07/03/2022 69 (H) 04/09/2022 55 (H) C Telopeptide Beta Cross Linked Serum Result (pg/mL) Date Value 08/11/2024 503 12/22/2023 812 04/19/2023 860 12/17/2022 1167 07/03/2022 1679 04/09/2022 1022 N-Telopeptide, Cross-Linked, Serum (nM BCE) Date Value 08/11/2024 21.9 04/19/2023 29.1 12/17/2022 37.0 07/03/2022 41.2 04/09/2022 40.4 External Labs: 03/15/25 Cr 1.00 Ca 8.4 (8.4-10.2) Alb 3.5 Rupali Ca 8.8 Vit D 51.2 BSAP 13.6 CTX 589 Osteocalcin 2.5 Cystatin C 1.5 eGFR ~49 (2020 CKD-EPI creatinine/cystatin equation) DXA scan Date Aug 2024 T-scores RFN: -2.2 RTH:-0.8 LFA 2.5 RFA: -2.4 Assessment/Plan: Patient has tolerated regimen well and has no complaints. Calcium WNL. Bone markers demonstrate recovery. Will proceed with Prolia at this time.Patient denies any active infections, ongoing use of antibiotics, or new immunosuppressive medications. Will repeat RFP 2 weeks after dose to ensure adequate calcium. Follow up in 7 months with provider with labs and DXA. Patient expressed understanding of plan outlined above, encouraged to call clinic with any questions or concerns. Chapo Santoro, PharmD, BCACP Clinical Pharmacist Nephrology, [facility] [address] [place] [address] [1] Current Outpatient Medications Medication Sig Dispense Refill acetaminophen (Tylenol) 500 MG tablet Take 2 tablets (1,000 mg total) by mouth every 6 (six) hours if needed for pain. 40 tablet 0 albuterol 108 (90 Base) MCG/ACT inhaler INHALE TWO PUFFS BY MOUTH EVERY 4 TO 6 HOURS FOR SHORTNESS OF BREATH, WHEEZING, CHEST TIGHTNESS, OR COUGHING allopurinol (Zyloprim) 300 MG tablet 1 (one) time each day. aspirin 81 MG EC tablet Take 1 tablet by mouth Daily. azelastine (Astelin) 0.1 % nasal spray INSTILL 2 SPRAYS IN EACH NOSTRIL TWICE DAILY calcitriol (Rocaltrol) 0.25 MCG capsule Take 1 capsule by mouth daily. 30 capsule 0 calcium citrate 600 mg and vitamin D3 (Citrical & Minerals + Vit D) 600-200 MG- UNIT tablet 1 (one) time each day at the same time. Wrijdcg-Pdenegntk-Mqjkwaf D (CALCIUM 1200+D3 PO) Take 1 tablet by mouth 1 (one) time each day. cetirizine (ZyrTEC) 10 MG tablet Take 1 tablet (10 mg) by mouth daily. denosumab (Prolia) 60 MG/ML injection Inject 1 mL (60 mg) under the skin 1 (one) time. doxycycline (Vibramycin) 100 MG capsule TAKE ONE CAPSULE BY MOUTH TWICE DAILY -- FINISH ALL MEDICINE -- estradiol (Vagifem) 10 MCG tablet vaginal tablet 3 times a week ferrous sulfate 325 (65 Fe) MG tablet Take 1 tablet (325 mg) by mouth daily with breakfast. fluticasone (Flonase) 50 MCG/ACT nasal spray fluticasone (Flovent) 110 MCG/ACT inhaler furosemide (Lasix) 20 MG tablet Take 1 tablet (20 mg) by mouth daily as needed. gabapentin (Neurontin) 100 MG capsule 4 (four) times a day. Keppra XR 500 MG 24 hr tablet TAKE ONE TABLET BY MOUTH IN THE MORNING & TAKE 4 TABLETS BY MOUTHAT BEDTIME DAILY DIRECTED montelukast (Singulair) 10 MG tablet Take 1 tablet (10 mg) by mouth nightly. Multiple Vitamin (multivitamin) tablet Take 1 tablet by mouth daily. olmesartan (BENIcar) 20 MG tablet olopatadine (Patanol) 0.1 % ophthalmic solution every 12 (twelve) hours. OLOPATADINE HCL OP omega-3 (Fish Oil) 1200 MG capsule 1 (one) time each day at the same time. omeprazole (PriLOSEC) [address] capsule Take 1 capsule by mouth daily. pancrelipase, Ppp-Kkgw-Ymab, (Zenpep) 27067-18599 units capsule delayed-release particles capsule 3(three) times a day with meals. psyllium (Konsyl Daily Fiber) 100 % packet Take 1 packet by mouth daily. rosuvastatin (Crestor) 10 MG tablet Take 1 tablet (10 mg) by mouth daily. Xiidra 5 % solution instill 1 drop IN EACH EYE EVERY TWELVE HOURS No current facility-administered medications for this visit. Cosigned by Eric Barrientos MD at 04/08/2025 8:52 PM EST Associated attestation - Eric aBrrientos MD - 04/08/2025 8:52 PM EST ATTESTATION: I discussed the evaluation with the Clinical Pharmacist and concur with the treatment plan as documented in the note. Eric Barrientos MD documented in this encounter Plan of Treatment Upcoming Encounters Date Type Department Care Team ([facility] st Contact Info) Description 03/21/2026 11:40 AM EDT Office Visit [facility] Nephrology, Bone & Mineral Metabolism [address], [address] [place] [address] Edinson Reyes MD [address] [place] [id number] Scheduled Orders Name Type Priority Associated Diagnoses Orde r Schedule Vitamin D 25 Hydroxy Lab Routine Age-related osteoporosis without current pathological fracture Expected: 09/26/2025, Expires: 03/28/2026 Renal Function Panel, Plasma Lab Routine Age-related osteoporosis without current pathological fracture Expected: 09/26/2025 (Approximate), Expires: 03/28/2026 Osteocalcin by ECIA Lab Routine Age-related osteoporosis without current pathological fracture Expected: 09/26/2025 (Approximate), Expires: 03/28/2026 N telopeptide, cross-linked, serum Lab Routine Age-related osteoporosis without current pathological fracture Expected: 09/26/2025 (Approximate), Expires: 03/28/2026 C-Telopeptide Lab Routine Age-related osteoporosis without current pathological fracture Expected: 09/26/2025 (Approximate), Expires: 03/28/2026 Bone Specific Alkaline Phosphatase Lab Routine Age-related osteoporosis without current pathological fracture Expected: 09/26/2025 (Approximate), Expires: 09/26/2026 Dexa Bone Density Imaging Routine Age-related osteoporosis without current pathological fracture Expected: 09/26/2025 (Approximate), Expires: 09/26/2026 Scheduled Referrals Name Type Priority Associated Diagnoses Orde r Schedule Follow Up Bone Mineral Metabolism Outpatient Referral Routine Age-related osteoporosis without current pathological fracture Expected: 10/26/2025 (Approximate), Expires: 04/28/2026 documented as of this encounter Visit Diagnoses [...] documented as of this encounter Care Teams Market Development Specialist Relationship Specialty Start Date End Date Gary Roberts MD [address] [place] [address] PCP - General 10/18/20 documented as of this encounter
--- OUTSIDE RECORDS SUMMARY | 2025-03-29 09:40 | XMS_ITS | Encounter Summary ---
Author Organization [facility] Address [address] [place] [address] Care Team Providers Care Wheel Cleaner Name Role Phone Gary Roberts MD Primary Care Provider [phone]- [phone] Reason for Referral * Consultation (Routine) - Authorized Specialty Diagnoses / Procedures Referred By Contac t Referred To Contact Diagnoses Stage 3a chronic kidney disease (CMS/HCC) Edinson Reyes MD [address] [place] [address] Phone: tel: fax: Referral ID Status Reason Start Date Expiration Date V isits Requested Visits Authorized [id number] Authorized 03/29/2025 09/28/2026 1 1 Reason for Visit * Reason Comments Follow-up Encounter Details Date Type Department Care Team ([facility] Contact Info) Description 03/29/2025 10:40 AM EDT Office Visit [facility] Nephrology, Bone & Mineral Metabolism [address] [facility] [address], [address] [place] [address] Edinson Reyes MD [address] [place] [address] Acute kidney injury superimposed on CKD (Primary Dx); Stage 3a chronic kidney disease (CMS/HCC); Essential hypertension; Hyperuricemia; Chronic kidney disease-mineral and bone disorder; Hypervolemia, unspecified hypervolemia type Social History Tobacco Use Types Packs/Day Years [...] drink first t figueroa in the morning (EYE-EVENT SET UP SPECIALIST) to steady your nerves or to [...] Sign Reading Time Taken Comments Blood Pressure 127/82 03/29/2025 10:34 AM EDT Pulse 64 03/29/2025 10:27 AM EDT Temperature 36.4 C (97.6 F) 03/29/2025 10:27 AM EDT Respiratory Rate - - Oxygen Saturation 99% 03/29/2025 10:27 AM EDT Inhaled Oxygen Concentration - - Weight 87.2 kg (192 lb 3.9 oz) 03/29/2025 10:27 AM EDT Height 165.1 cm (5' 5 ) 03/29/2025 10:27 AM EDT Body Mass Index 31.99 03/29/2025 10:27 AM EDT documented in this encounter Functional [...] encounter Miscellaneous Notes * Progress Notes - Edinson Reyes MD - 03/29/2025 10:40 AM EDT Nephrology Patient: Fani Mondragon Chief complain / Reason for visit : Follow-up for kidney dysfunction. HPI: Ms. Mondragon is a 74 y.o. woman with a history of HTN, osteoporosis, and CKD III seen for regular follow-up of CKD. Today in clinic, reports no major changes in health. Following with [facility] and next dose of Prolia to be scheduled soon. Does note some recent orthostatic symptoms, now improved (occurred shortly following the of her brother, and attributes to stress and lack of sleep). ROS: ROS was obtained in 14 points and is negative except otherwise as noted in the HPI. History: Past Medical History[1] Allergies[2] Medications: Home Medications: Current Outpatient Medications Medication Instructions acetaminophen (TYLENOL) 1,000 mg, Oral, Every 6 hours PRN albuterol 108 (90 Base) MCG/ACT inhaler INHALE TWO PUFFS BY MOUTH EVERY 4 TO 6 HOURS FOR SHORTNESS OF BREATH, WHEEZING, CHEST TIGHTNESS, OR COUGHING allopurinol (Zyloprim) 300 MG tablet ZZ Daily RT aspirin 81 MG EC tablet 1 tablet, Daily azelastine (Astelin) 0.1 % nasal spray INSTILL 2 SPRAYS IN EACH NOSTRIL TWICE DAILY calcitriol (ROCALTROL) 0.25 mcg, Oral, Daily calcium citrate 600 mg and vitamin D3 (Citrical & Minerals + Vit D) 600-200 MG- UNIT tablet Every 24 hours Zxmycwu-Glglzootr-Meaukxu D (CALCIUM 1200+D3 PO) 1 tablet, Daily denosumab (PROLIA) 60 mg, Once doxycycline (Vibramycin) 100 MG capsule TAKE ONE CAPSULE BY MOUTH TWICE DAILY -- FINISH ALL MEDICINE -- estradiol (Vagifem) 10 MCG tablet vaginal tablet 3 times a week ferrous sulfate 325 mg, Daily with breakfast fluticasone (Flonase) 50 MCG/ACT nasal spray fluticasone (Flovent) 110 MCG/ACT inhaler furosemide (LASIX) 20 mg, Daily PRN gabapentin (Neurontin) 100 MG capsule 4 times daily Keppra XR 500 MG 24 hr tablet TAKE ONE TABLET BY MOUTH IN THE MORNING & TAKE 4 TABLETS BY MOUTHAT BEDTIME DAILY DIRECTED Multiple Vitamin (multivitamin) tablet 1 tablet, Daily olmesartan (BENIcar) 20 MG tablet olopatadine (Patanol) 0.1 % ophthalmic solution Every 12 hours OLOPATADINE HCL OP omega-3 (Fish Oil) 1200 MG capsule Every 24 hours omeprazole (PRILOSEC) 40 mg, Daily pancrelipase, Ghb-Loaw-Ylak, (Zenpep) 38645-10272 units capsule delayed-release particles capsule 3times daily with meals psyllium (Konsyl Daily Fiber) 100 % packet 1 packet, Daily rosuvastatin (CRESTOR) 10 mg, Daily Xiidra 5 % solution instill 1 drop IN EACH EYE EVERY TWELVE HOURS Physical Exam: Visit Vitals BP 127/82 (BP Location: Right arm, Patient Position: Sitting, BP Cuff Size: Large adult) Pulse 64 Temp 36.4 ??C (97.6 ??F) (Oral) Ht 1.651 m (5' 5 ) Wt 87.2 kg (192 lb 3.9 oz) SpO2 99% BMI 31.99 kg/m?? OB Status Postmenopausal Smoking Status Never BSA 2 m?? Gen: Awake, alert, NAD HEENT: MMM, neck supple Pulm: Normal respiratory effort, on room air Abd: Soft, non-distended Extremities: No LE edema, no digital clubbing Skin: No rashes noted on observed skin, warm to touch Neuro: Awake and alert. Non focal. Laboratory: Creatinine, Plasma (mg/dL) Date/Time Value 09/14/2024 1148 0.93 08/25/2024 1343 1.00 08/11/2024 1227 1.37 (H) eGFRcr (mL/min/1.73m*2) Date/Time Value 09/14/2024 1148 65.0 08/25/2024 1343 59.6 08/11/2024 1227 40.9 BUN, Plasma (mg/dL) Date/Time Value 09/14/2024 1148 26 (H) 08/25/2024 1343 19 08/11/2024 1227 24 (H) Albumin, Plasma (g/dL) Date/Time Value 09/14/2024 1148 4.2 08/25/2024 1343 4.3 08/11/2024 1227 4.1 Potassium, Plasma (mmol/L) Date/Time Value 09/14/2024 1148 4.0 08/25/2024 1343 4.0 08/11/2024 1227 3.8 CO2, Plasma (mmol/L) Date/Time Value 09/14/2024 1148 24 08/25/2024 1343 28 08/11/2024 1227 22 Sodium, Plasma (mmol/L) Date/Time Value 09/14/2024 1148 138 08/25/2024 1343 140 Total Calcium, Plasma (mg/dL) Date/Time Value 09/14/2024 1148 9.0 08/25/2024 1343 9.6 08/11/2024 1227 9.1 Ionized Calcium, Serum (mg/dL) Date/Time Value 08/25/2024 1343 4.9 04/09/2022 1121 5.1 Phosphorus, Plasma (mg/dL) Date/Time Value 09/14/2024 1148 3.1 08/25/2024 1343 4.1 08/11/2024 1227 4.1 Magnesium, Plasma (mg/dL) Date/Time Value 12/22/2023 1205 2.5 (H) 12/17/2022 1153 2.9 (H) 04/09/2022 1121 1.8 (L) WBC Count (10*3/uL) Date/Time Value 09/14/2024 1148 12.02 (H) 07/24/2022 1331 16.78 (H) 07/23/2022 0335 19.55 (H) HGB (g/dL) Date/Time Value 09/14/2024 1148 11.1 (L) 07/24/2022 2226 8.0 (L) 07/24/2022 1331 5.9 (LL) Platelet Count (10*3/uL) Date/Time Value 09/14/2024 1148 343 07/24/2022 1331 238 07/23/2022 0335 251 Vitamin D 25 Hydroxy (ng/mL) Date/Time Value 08/11/2024 1227 48.1 12/22/2023 1205 45.9 PTH Intact Total (pg/mL) Date/Time Value 08/25/2024 1343 95 (H) 04/09/2022 1121 68 RBC, Urine (/HPF) Date/Time Value 11/17/2013 0500 TOO NUMEROUS TO COUNT WBC, Urine (/HPF) Date/Time Value 11/17/2013 0500 5-10 Transferrin Saturation (%) Date/Time Value 04/15/2022 1320 14 Ferritin, Serum (ng/mL) Date/Time Value 04/15/2022 1320 177 (H) Outside labs, 03/15/25: Na 138 K 4.1 Cl 104 Co2 25 BUN 29 Cr 1.00 eGFR 54 Ca 8.4 P 3.4 Alb 3.5 Vit D 51.2 Cystatin C 1.50 Impression & Plan: Ms. Mondragon is a 74 y.o. woman with a history of HTN, osteoporosis, and CKD III seen for regular follow-up of CKD. Impression: # JESENIA on CKD, resolved # CKD, stage III, baseline creatinine ~1 (with cystatin C of 1.5); suspect primarily due to interstitial fibrosis from prolonged NSAID therapy, also with longstanding hypertension as risk factor -no proteinuria on most recent urine studies # Hypertension in CKD, well-controlled; on olmesartan # Hyperuricemia, on allopurinol # Hypervolemia, on furosemide daily # CKD-MBD # Osteoporosis, follows with [facility] # Osteoarthritis, symptoms controlled with topical NSAIDs Plan: -renal function, acid-base and volume status reviewed; overall stable -discussed diagnosis and prognosis of CKD -continue current antihypertensives, diuretics -MBD labs on follow-up -counseled to avoid dehydration, NSAIDs -RTC in 1 year with repeat labs Armand Reyes MD Nephrology Orders Placed This Encounter Procedures Renal Function Panel, Plasma Standing Status: Future Expected Date: 03/29/2026 Expiration Date: 03/29/2026 Release to patient in [facility]: Immediate Urinalysis with reflex microscopic (Culture NOT Included) Standing Status: Future Expected Date: 03/29/2026 Expiration Date: 03/29/2026 Release to patient in [facility]: Immediate Protein, Random, Urine with Creatinine Standing Status: Future Expected Date: 03/29/2026 Expiration Date: 03/29/2026 Release to patient in [facility]: Immediate Creatinine, Random, Urine Standing Status: Future Expected Date: 03/29/2026 Expiration Date: 03/29/2026 Release to patient in [facility]: Immediate CBC W/O Differential Standing Status: Future Expected Date: 03/29/2026 Expiration Date: 03/29/2026 [facility] Cystatin C Standing Status: Future Expected Date: 03/29/2026 Expiration Date: 09/30/2026 Release to patient in [facility]: Immediate [1] Follow Up Nephrology Standing Status: Future Expected Date: 03/29/2026 Expiration Date: 04/29/2026 Referral Priority: Routine Referral Type: Consultation Number of Visits Requested: 1 [1] Past Medical History: Diagnosis Date Anemia Most of my life Asthma Cataract Removed in 2018 & 2019 Chronic pain disorder over 20 years ago Depression 2011 Flexion contractures October 2018 GERD (gastroesophageal reflux disease) approx 1990 Gout 04/2021 Headache 1969 Hypertension 10 + years ago Joint pain 1990 Leg pain 2011 Low back pain 2012 Lumbosacral disc disease 2011 Neck pain 11/05/2021 Neuropathic pain 06/07/2002 Obesity Adult life CHER on CPAP uses cpap. Osteoarthritis 2010 Peripheral neuropathy 06/07/1999 Scoliosis 2018 Seizures ([facility] 1978 Spinal stenosis 2010 TMJ dysfunction 1994 [2] Allergies Allergen Reactions Amlodipine Swelling Budesonide [...] Adhesive Rash * request cloth tape only* documented in this encounter Plan of Treatment Upcoming Encounters Date Type Department Care Team (Late st Contact Info) Description 03/21/2026 11:40 AM EDT Office Visit [facility] Nephrology, Bone & Mineral Metabolism [address] [facility] [facility], [address] [place] [address] Edinson Reyes MD [address] [place] [phone] Scheduled Orders Name Type Priority Associated Diagnoses Orde r Schedule Renal Function Panel, Plasma Lab Routine Stage 3a chronic kidney disease ([facility]) Expected: 03/29/2026, Expires: 03/29/2026 Urinalysis with reflex microscopic (Culture NOT Included) Lab Routine Stage 3a chronic kidney disease ([facility]) Expected: 03/29/2026, Expires: 03/29/2026 Protein, Random, Urine with Creatinine Lab Routine Stage 3a chronic kidney disease ([facility]) Expected: 03/29/2026, Expires: 03/29/2026 Creatinine, Random, Urine Lab Routine Stage 3a chronic kidney disease (CMS/HCC) Expected: 03/29/2026, Expires: 03/29/2026 CBC W/O Differential Lab Routine Stage 3a chronic kidney disease (CMS/HCC) Expected: 03/29/2026, Expires: 03/29/2026 Cystatin C Lab Routine Stage 3a chronic kidney disease (CMS/HCC) Expected: 03/29/2026 (Approximate), Expires: 09/30/2026 Scheduled Referrals Name Type Priority Associated Diagnoses Order Schedule Follow Up Nephrology Outpatient Referral Routine Stage 3a chronic kidney disease (CMS/HCC) Expected: 03/29/2026 (Approximate), Expires: 04/29/2026 documented as of this encounter Visit Diagnoses Diagnosis Acute kidney injury superimposed on CKD- Primary Stage 3a chronic kidney disease (CMS/HCC) Essential hypertension Unspecified essential hypertension Hyperuricemia Other abnormal blood chemistry Chronic kidney disease-mineral and bone disorder Hypervolemia, unspecified hypervolemia type documented in this encounter Additional Health Concerns Assessment Noted Time PHQ-9 Depression Total Score: 0 11/02/19 25 1:34 PM EDT A fall risk assessment has been complete d for the patient 03/29/2025 10:34 AM EDT A Body Mass Index follow-up plan has been documented for the patient 03/29/2025 11:16 AM EDT documented as of this encounter Care Teams Wheel Cleaner Relationship Specialty Start Date End Date aGry Roberts MD [address] [place] [address] PCP - General 10/18/20 documented as of this encounter
--- OUTSIDE RECORDS SUMMARY | 2025-05-07 13:30 | XMS_ITS | Encounter Summary ---
[facility] Address [address] [place] [address] Care Team Providers Care Rubber Goods Repairer Name Role Phone Gary Roberts MD Primary [...] Info) Description 09/17/2025 11:10 AM EDT Appointment [facility] [address] [place], [place] [address] [address] 03/28/2026 11:10 AM EDT Office Visit [facility] MEDICAL [facility] GYNECOLOGY [address] [phone] Martha Hutchinson MD [address] [phone] documented as of this encounter Visit Diagnoses Not on filedocumented in this encounter Care Teams Rubber Goods Repairer Relationship Specialty Start Date End Date Gary Roberts MD [address] [place] [address] PCP - General 11/11/15 documented as of this encounter
--- OUTSIDE RECORDS SUMMARY | 2025-05-07 13:30 | XMS_ITS | Encounter Summary ---
Author Organization Healthcare Address [address] [place] [address] Care Team Providers Care Acetaldehyde Converter Operator Name Role Phone Gary Roberts MD Primary Care Provider +1- [phone] Encounter Details Date Type Department Care Team ([facility] st Contact Info) Description 03/20/2025 Telephone [facility] [address], [address] [place] [address] Kalia Sanz Social History Tobacco [...] drink first t figueroa in the morning (EYE-LEAN MANAGER) to steady your nerves or to [...] pt states she did labs last at [facility] documented in this encounter Plan of Treatment Upcoming Encounters Date Type Department Care Team (Late st Contact Info) Description 03/21/2026 11:40 AM EDT Office Visit [facility] Nephrology, Bone & Mineral Metabolism [address], [address] [place] [phone] Edinson Reyes MD [address] [place] [phone] documented as of this encounter Visit Diagnoses [...] documented as of this encounter Care Teams Acetaldehyde Converter Operator Relationship Specialty Start Date End Date Gary Roberts MD [address] [place] [address] PCP - General 10/18/20 documented as of this encounter
--- OUTSIDE RECORDS SUMMARY | 2025-05-07 13:30 | XMS_ITS | Encounter Summary ---
[facility] [address] [place] [address] Care Team Providers Care Head Of Data Name Role Phone Gary Roberts MD Primary Care Provider Reason for Visit * Reason Onset Date Comments Med Refill 03/13/2025 Encounter Details Date Type Department Care Team (Late st Contact Info) Description 03/13/2025 Telephone [facility] GYNECOLOGY [address] [phone] Martha Hutchinson MD [address] [place] [address] Med Refill Social History Tobacco Use Types [...] and stated understanding. * Telephone Encounter - nAn Waterman MA - 03/13/2025 2:24 PM EDT [...] Info) Description 09/17/2025 11:10 AM EDT Appointment [facility] [address] [place] [address] 03/28/2026 11:10 AM EDT Office Visit [facility] MEDICAL [facility] GYNECOLOGY [address] [phone] Martha Hutchinson MD [address] [address] documented as of this encounter Visit Diagnoses Not on filedocumented in this encounter Care Teams Head Of Data Relationship Specialty Start Date End Date Gary Roberts MD [address] [facility] [address] [place] [address] PCP - General 11/11/15 documented as of this encounter
--- OUTSIDE RECORDS SUMMARY | 2025-05-07 13:30 | XMS_ITS | Clinical Summary ---
Author Organization [facility] ([place], [place], [place], [place], [place]) Address [address] [place] [address] Care Team Providers Care Repairer Veneer Sheet Name Role Phone Gary Roberts MD Primary Care Provider +1- [phone] Allergies Active Allergy Reactions Criticality Noted Date [...] spray 1 spray 2 (two) times daily. Active psyllium husk (Konsyl Sugar-Free) 6 gram [...] Date Delfin rded Speak language other than Nauruan at home Not on file 06/18/2023 Want [...] Description 12/19/2025 1:00 PM EDT Office Visit [facility] [address] [facility] [address] [place] [address] Shahida Orellana MD [address] [place] [address] Health Maintenance Due Date Last [...] Pneumococcal 50+ years Completed 04/20/2023, 2016 [place] [id number] [facility] MEDICARE ADVANTAGE Care Teams Repairer Veneer Sheet Relationship Specialty Start Date End Date Gary Roberts MD [address] [place] [address] PCP - General Family Medicine 11/16/22
--- OUTSIDE RECORDS SUMMARY | 2025-05-07 13:30 | XMS_ITS | Referral Summary ---
Author Organization [employer] ([place], [place], [place], [place], [place]) Address [address] [place] [address] Care Team Providers Care Floral Assistant Name Role Phone Gary Roberts MD Primary Care Provider +1- [phone] Allergies Active Allergy Reactions Criticality Noted Date [...] Date Delfin rded Speak language other than Malian at home Not on file 06/18/2023 Want [...] Description 12/19/2025 1:00 PM EDT Office Visit [facility] Bariatric Services [address] [facility] [address] [place] [address] Shahida Orellana MD [address] [place] [address] [place] [id number] [facility] MEDICARE ADVANTAGE Care Teams Floral Assistant Relationship Specialty Start Date End Date Gary Roberts MD [address] [place] [address] PCP - General Family Medicine 11/16/22
--- OUTSIDE RECORDS SUMMARY | 2025-05-07 13:30 | XMS_ITS | Encounter Summary ---
Author Organization [facility] Address [address] [place] [address] Care Team Providers Care Wireless Development Manager Name Role Phone Gary Roberts MD Primary Care Provider +1- [phone] Reason for Visit * Reason Onset Date Comments Med Refill 03/12/2025 Encounter Details Date Type Department Care Team (Late st Contact Info) Description 03/12/2025 Refill [facility] [address], [address] [place] [address] Eric Barrientos MD [address] [place] [address] Age-related osteoporosis without current pathological [...] drink first t figueroa in the morning (EYE-DELIVERY SALES WORKER) to steady your nerves or to [...] Description 03/21/2026 11:40 AM EDT Office Visit [facility] Nephrology, Bone & Mineral Metabolism [address] [facility], [address] [place] [address] Edinson Reyes MD [address] [place] [phone] documented as of this encounter Visit [...] documented as of this encounter Care Teams Wireless Development Manager Relationship Specialty Start Date End Date Gary Roberts MD [address] [place] [address] PCP - General 10/18/20 documented as of this encounter
--- OUTSIDE RECORDS SUMMARY | 2025-05-07 13:30 | XMS_ITS | Encounter Summary ---
Author Organization Healthcare Address [address] [place] [address] Care Team Providers Care Stone Driller Helper Name Role Phone Gary Roberts MD Primary Care Provider +1- [phone] Encounter Details Date Type Department Care Team ([facility] st Contact Info) Description 03/13/2025 Telephone [facility] [address] [facility], [address] [place] [address] Kalia Sanz Social History Tobacco [...] drink first t figueroa in the morning (EYE-REFRIGERATING TECHNICIAN) to steady your nerves or to get [...] pt states she wants labs fax to [facility], pt states diana try to go this week documented in this encounter Plan of Treatment Upcoming Encounters Date Type Department Care Team (Late st Contact Info) Description 03/21/2026 11:40 AM EDT Office Visit [facility] Nephrology, Bone & Mineral Metabolism [address] [facility], [address] [place] [address] Edinson Reyes MD [address] [place] [phone] documented as of this encounter Visit Diagnoses [...] documented as of this encounter Care Teams Stone Driller Helper Relationship Specialty Start Date End Date Gary Roberts MD [address] [place] [address] PCP - General 10/18/20 documented as of this encounter
--- OUTSIDE RECORDS SUMMARY | 2025-05-07 13:31 | XMS_ITS | Encounter Summary ---
Author Organization Healthcare Address [address] [place] [address] Care Team Providers Care Home Worker Name Role Phone Gary Roberts MD Primary Care Provider +1- [phone] Encounter Details Date Type Department Care Team ([facility] st Contact Info) Description 04/12/2025 Orders Only [facility] [address] [facility], [address] [place] [address] Chapo Santoro, PharmD [address] [place] [address] Age-related osteoporosis without current pathological [...] drink first t figueroa in the morning (EYE-HAND STRIPER) to steady your nerves or to get [...] Miscellaneous Notes * Clinician Note - Chapo Santoro, PharmD - 04/12/2025 9:33 AM EST Patient called to request refills for calcitriol. Will send in Rx today. documented in this encounter Plan of Treatment Upcoming Encounters Date Type Department Care Team (Late st Contact Info) Description 03/21/2026 11:40 AM EDT Office Visit [facility] Nephrology, Bone & Mineral Metabolism [address] [facility], [address] [place] [address] Edinson Reyes MD [address] [place] [phone] documented as of this encounter Visit [...] documented as of this encounter Care Teams Home Worker Relationship Specialty Start Date End Date Gary Roberts MD [address] [place] [address] PCP - General 10/18/20 documented as of this encounter
--- OUTSIDE RECORDS SUMMARY | 2025-05-07 13:31 | XMS_ITS | Encounter Summary ---
Author Organization Healthcare Address [address] [place] [address] Care Team Providers Care Slot Machine Key Person Name Role Phone Gary Roberts MD Primary Care Provider +1- [phone] Encounter Details Date Type Department Care Team [...] drink first t figueroa in the morning (EYE-MACHINE ICER) to steady your nerves or to get [...] Description 03/21/2026 11:40 AM EDT Office Visit [facility] Nephrology, Bone & Mineral Metabolism [address] [facility], [address] [place] [address] Edinson Reyes MD [address] [place] [phone] documented as of this encounter Visit [...] documented as of this encounter Care Teams Slot Machine Key Person Relationship Specialty Start Date End Date Gary Roberts MD [address] [place] [address] PCP - General 10/18/20 documented as of this encounter
--- OUTSIDE RECORDS SUMMARY | 2025-05-07 13:31 | XMS_ITS | Clinical Summary ---
[facility] [address] [place] [address] Care Team Providers Care Pillowcase Cleaner Name Role Phone Gary Roberts MD [...] (ZYLOPRIM) 300 MG tablet 7 Active ZENPEP [address]9426-[address] units capsule delayed-release particles TAKE 1 CAPSULE [...] Take 1 packet by mouth Daily. Active Selma-3 Fatty Acids (fish oil) 1000 MG capsule [...] Every 12 (Twelve) Hours. Active nystatin (MYCOSTATIN) 792323 UNIT/GM powder Apply topically to the appropriate area as directed 2 (Two) Times a Day. For 14 days or until symptom resolution 30 g 3 5 Active estradiol (VAGIFEM) 10 MCG tablet vaginal tabletIndicatio ns:Atrophy of vagina Insert 1 tablet into the vagina 3 (Three) Times a Week. 12 tablet 12 5 Active Active Problems Problem Noted Date Diagnosed [...] Encounters Date Type Department Care Team Description 04/04/2025 Prior Authorization [facility] GYNECOLOGY [address] [address] Martha Hutchinson MD 03/28/2025 Refill [facility] GYNECOLOGY [address] [address] Martha Hutchinson MD Atrophy of vagina 03/19/2025 2:10 PM EDT Office Visit [facility] GYNECOLOGY [address] [address] Martha Hutchinson MD Women's annual routine gynecological examination (Primary Dx); Encounter for screening mammogram for breast cancer; Vaginal atrophy 03/19/2025 Travel 03/13/2025 Telephone [facility] [address] [facility] [address] [place] [address] Martha Hutchinson MD Med Refill from Last [...] Info) Description 09/17/2025 11:10 AM EDT Appointment [facility] [address] [place] [address] 03/28/2026 11:10 AM EDT Office Visit [facility] GYNECOLOGY [address] [place] [phone] Martha Hutchinson MD [address] [facility] [address] [place] [address] Health Maintenance Due Date Last Done Comments TDAP/TD VACCINES (1 - Tdap) 1969 COLOGUARD 12/24/1995 COLON CANCER SCREENING 5 YEAR SIGMOIDOSCOPY 12/24/1995 CT COLONOGRAPHY 12/24/1995 FECAL OCCULT BLOOD TEST 12/24/1995 FIT Testing (1 year) 12/24/1995 ZOSTER VACCINE (1 of 2) 2000 ANNUAL WELLNESS VISIT 10/09/2016 HEPATITIS C SCREENING 10/09/2016 HEMOGLOBIN A1C 10/07/2022 04/09/2022, 1108/2021, 06/26/2014 COLONOSCOPY 12/21/2022 12/21/2012 INFLUENZA VACCINE 01/05/2025 [...] fall-prevention measurements. The National Osteoporosis Foundation recommends (http://www.nof.org/hcp/practice/saaqvpyg-zmc-xgewrscu-guidelines/clinic ans-guide) that FDA-approved medical therapies be considered [...] the left hip with 95% confidence is 0.520056 gm/cm2 at the hip and 0.965094 g/cm2 at the lumbar spine. This report [...] fall-prevention measurements. The National Osteoporosis Foundation recommends (http://www.nof.org/hcp/practice/nppufawh-kgt-aecqjpjf-guidelines/clinic ans-guide) that FDA-approved medical therapies be considered [...] the left hip with 95% confidence is 0.005633 gm/cm2 at the hip and 0.172431 g/cm2 at the lumbar spine. This report was finalized on 11/24/2018 12:[address] Jose Latif. Jacky Quezada MD IMG DXA ORDERABLES Final Result * (ABNORMAL) Hemoglobin A1c (06/26/2014 10:55 AM EST) Hemoglobin A1C 6.5(H) 4.00 - 6.00 % [facility] Comment: DF by IF @ 06/26/2014 11:44 The [place] [employer] recommends maintenance of Hemoglobin A1C at 7.0% or lower. Goals for Hemoglobin A1C reduction may need to be modified if hypoglycemia is a problem. Mean Bld Glu Estim. 135 mg/dL [facility] Blood specimen (specimen) 06/26/2014 10:55 AM EST Narrative [facility] - 06/26/2014 11:44 AM EST Specimen Type: Blood us Curt Gipson MD LAB BLOOD ORDERABLES Final Resu lt [facility] [address] [place] [address], from Last 3 Months or Most Recently Relevant to Health Maintenance Insurance [email or web address] [facility] Medicare Advantage [employer] PPO Care Teams Pillowcase Cleaner Relationship Specialty Start Date End Date Gary Roberts MD [address] [place] [address] [address] [facility] [address] [place] [address] PCP - General 11/11/15
--- OUTSIDE RECORDS SUMMARY | 2025-05-07 13:31 | XMS_ITS | Encounter Summary ---
Author Organization [facility] Address [address] [place] [address] Care Team Providers Care Environmental Resource Specialist Name Role Phone Gary Roberts MD Primary Care Provider +1- [phone] Encounter Details Date Type Department Care Team ([facility] st Contact Info) Description 04/26/2025 Telephone [facility] [address] [facility], [address] [place] [address] Chapo Santoro, PharmD [address] [place] [address] Social History Tobacco Use Types [...] drink first t figueroa in the morning (EYE-PAINT POURER) to steady your nerves or to get [...] Clinician Note - Chapo Santoro, PharmD - 04/26/2025 9:29 AM EST Called and spoke with patient today to see if she has had Prolia administered yet. She states Prolia has not been administered as she has been in hospital for afib and cellulitis. She was discharged and is seeing PCP today. She continues on antibiotics for cellulitis but is unsure of duration. She believes it will be ~7-10 days. Recommended patient wait ~2 weeks after finishing antibiotics before calling [facility] to schedule. Patient expressed understanding of plan outlined above, encouraged to call clinic with any questions or concerns. Chapo Santoro, AdrianoD, BCACP Clinical Pharmacist Nephrology, [facility] [address] [place] [address] documented in this encounter Plan of Treatment Upcoming Encounters Date Type Department Care Team (Late st Contact Info) Description 03/21/2026 11:40 AM EDT Office Visit [facility] Nephrology, Bone & Mineral Metabolism [address] [facility] [place], [address] [place] [address] Edinson Reyes MD [address] [place] [phone] documented as of this encounter Visit Diagnoses [...] documented as of this encounter Care Teams Environmental Resource Specialist Relationship Specialty Start Date End Date Gary Roberts MD [address] [place] [address] PCP - General 10/18/20 documented as of this encounter
--- OUTSIDE RECORDS SUMMARY | 2025-05-07 13:31 | XMS_ITS | Clinical Summary ---
Author Organization [facility] Address [address] [place] [address] Care Team Providers Care Waste Paper Hammermill Operator Name Role Phone Gary Roberts MD Primary Care Provider +1- [phone] Allergies Active Allergy Reactions Criticality Noted Date [...] * request cloth tape only* Medications pancrelipase, Bgr-Kpuk-Uvmf, (Zenpep) 60484-33227 units capsule delayed-release particles capsule 3 (three) [...] IN EACH NOSTRIL TWICE DAILY 2 Active Keppra XR 500 MG 24 hr tablet TAKE ONE TABLET BY MOUTH IN THE MORNING & TAKE 4 TABLETS BY MOUTH AT BEDTIME DAILY DIRECTED 2 Active rosuvastatin (Crestor) 10 MG tablet [...] fracture Take 1 capsule by mouth daily. 90 capsule 2 5 Active calcitriol (Rocaltrol) 0.25 MCG capsuleIndicatio ns:Age-related osteoporosis without current pathological fracture Take 1 capsule by mouth daily. 30 capsule 5 04/12/20 25 Discontin ued(Reord er) Active Problems Problem [...] (01/29/2022): Added automatically from request for surgery [id number] Pseudarthrosis after fusion or arthrodesis 01/29 S/P [...] Encounters Date Type Department Care Team Description 04/26/2025 Telephone [facility] Bone & Mineral Metabolism [address], [address] [place] [address] Chapo Santoro, PharmD 04/12/2025 Orders Only [facility] Bone & Mineral Metabolism [address], [address] [place] [address] Chapo Santoro, PharmD Age-related osteoporosis without current pathological fracture 04/04/2025 Telephone [facility] Infusion [address] [place] [address] Frida Gallardo RN 03/29/2025 10:40 AM EDT Office Visit [facility] Nephrology, Bone & Mineral Metabolism [address] [place] [address] Edinson Reyes MD Acute kidney injury superimposed on CKD (Primary Dx); Stage 3a chronic kidney disease (CMS/HCC); Essential hypertension; Hyperuricemia; Chronic kidney disease-mineral and bone disorder; Hypervolemia, unspecified hypervolemia type 03/29/2025 Travel 03/28/2025 11:00 AM EDT Pharmacist Visit [facility] Bone & Mineral Metabolism [address], [address] [place] [address] Chapo Santoro, PharmD Age-related osteoporosis without current pathological fracture (Primary Dx) 03/28/2025 Travel 03/20/2025 Telephone [facility] Bone & Mineral Metabolism [address], [address] [place] [address] Kalia Sanz 03/13/2025 Telephone [facility] Bone & Mineral Metabolism [address], [address] [place] [address] Kalia Sanz 03/12/2025 [facility] Bone & Mineral Metabolism [address], [address] [place] [address] Eric Barrientos MD Age-related osteoporosis without current pathological fracture 02/26/2025 12:50 PM EDT Office Visit [facility] Spine [facility] [address], [address] [place] [address] Jaiden Fuentes MD Hip pain, bilateral (Primary Dx) 02/26/2025 12:29 PM EDT - 02/26/2025 11:59 PM EDT Hospital Encounter [facility] Radiology [address] [place] [address] Left knee pain, unspecified chronicity; [...] Luis Mendoza Arthritis Father's Brother 2 Gold Mendoza Arthritis Father's Sister Yessi Buchanan Kidney disease Father's Sister Yessi Loveony Osteoporosis Father's Sister Yessi Loveony Rheumatologic disease Father's Sister Yessi Rooney olony Diabetes Maternal Grandmother Joy Mccarthy Rheumatologic disease Maternal Grandmother Joy Rooney oss Stroke Maternal Grandmother Joy Mccarthy Cancer Mother Maria Teresa Mendoza Diabetes Mother Maria Teresa Mendoza Obesity Mother Maria Teresa Mendoza Stroke Mother Maria Teresa Mendoza Vision loss Mother Maria Teresa Mccarthy Mendoza Arthritis Other 1 Joy Mccarthy Obesity [...] Father's Sister Yessi Mendoza Molony Maternal Grandmother Joy Mccarthy Mother Maria Teresa [...] No Comments: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 Alcohol Use Standard Drinks/Week Comments [...] drink first t figueroa in the morning (EYE-POLICE SURGEON) to steady your nerves or to get [...] 11:40 AM EDT Office Visit [facility]ph[facility], Bone & Mineral Metabolism [address], [address] [place] [address] Edinson Reyes MD [address] [place] [address] Health Maintenance Due Date Last Done Comments [facility]-Hepatitis C Screening 1950 [facility]Medicare Annual Wellness (AWV) 1950 [facility]-Infant/Child/Adol SDOH Screenings 1950 [facility]- SDOH Screenings 1968 [facility]-Adult SDOH Screenings 1968 CT Colonography 12/24/1995 Colonoscopy 12/24/1995 FIT-DNA 12/24/1995 FIT 12/24/1995 FOBT 12/24/1995 Sigmoidoscopy 12/24/1995 [facility]-Colorectal Cancer Screening 12/24/1995 [facility]-Zoster Vaccines (1 of 2) 2000 05/24/2007, 03/29/2007 [id number] Vaccine ( season) 2025 03/11/2022, 03/12/2021, 07/22/2020, [...] this topic Medical Devices Implanted Type Area Director Global Sales Device Identifier Shelf Expiration Date Model / Serial / Lot Chip Bone 40cc - [id number] - [id number] Implanted:Qty: 1 on 07/22/2022 by Pratik Carver MD at [facility] N/A: Spine Lumbar [facility]-[id number] 02/23/2027 PCAN1/2 / [id number] / [id number] Screw 5.5mm Viper Ti Fen Crtcl Polyax 6mm X 30mm - [id number] Implanted:Qty: 8 on 07/22/2022 by Pratik Carver MD at [facility] N/A: Spine Lumbar [employer]-[id number] 07/22/2023 [id number] / / Chip Bone 40cc - [id number] - [id number] Implanted:Qty: 1 on 07/22/2022 by Pratik Carver MD at [facility] N/A: Spine Lumbar [facility]-[id number] 04/21/2027 PCAN1/2 / [id number] / [id number] Graft Vivigen 5cc - [id number] - [id number] Implanted:Qty: 1 on 07/22/2022 by Pratik Carver MD at [facility] N/A: Spine Lumbar [facility]-[id number] 07/01/2023 BL-1500-002 / [id number] / [id number] Screw 5.5mm Viper Ti Fen Crtcl Polyax 5mm X 40mm - [id number] Implanted:Qty: 2 on 07/22/2022 by Pratik Carver MD at [facility] N/A: Spine Lumbar [employer]-[id number] 07/22/2023 [id number] / / Screw Exp Viper Lg Tit 9x100 - [id number] Implanted:Qty: 1 on 07/22/2022 by Pratik Carver MD at [facility] N/A: Spine Lumbar [employer]-[id number] 07/22/2023 [id number] / / Screw 5.5mm Viper Ti Polyax Fullthrd 8mm X 100mm - [id number] Implanted:Qty: 1 on 07/22/2022 by Pratik Carver MD at [facility] N/A: Spine Lumbar [employer]-[id number] 07/22/2023 [id number] / / Single Inner Setscrew - [id number] Implanted:Qty: 23 on 07/22/2022 by Pratik Carver MD at [facility] N/A: Spine Lumbar [employer]-[id number] 07/22/2023 [id number] / / Ap Expedium Ti Precontoured Small 5.5mm - [id number] Implanted:Qty: 2 on 07/22/2022 by Pratik Carver MD at [facility] N/A: Spine Lumbar [employer]-[id number] 07/22/2023 [id number] / / Plate Sfx 5.5 Ti Med Size A5 - [id number] Implanted:Qty: 1 on 07/22/2022 by Pratik Carver MD at [facility] N/A: Spine Lumbar [employer] -[id number] 07/22/2023 [id number] / / Procedures Procedure Name Priority Date/Time Associated Diagnosis Comments XR KNEE RIGHT 1 OR 2 VIEWS Routine 02/26/2025 12:51 PM EDT Pain XR HIPS BILATERAL 2 VIEWS Routine 02/26/2025 12:51 PM EDT Hip pain, bilateral XR KNEE LEFT 1 OR 2 VIEWS Routine 02/26/2025 12:51 PM EDT Left knee pain, unspecified chronicity NM ARTHROCENTESIS ASPIR&/INJ MAJOR JT/BURSA W/O US Routine [...] no evidence of hardware loosening or failure. Vmaj-hm-xrksnbst right hip osteoarthrosis. CRITICAL RESULT: No. COMMUNICATION: [...] joints posterior fusion hardware is partially visualized. Yuln-le-sszirixx osteoarthrosis of the right hip. Femoral head [...] sacroiliac joints posterior fusionhardware is partially visualized. Sqdr-fq-mbzfgonl osteoarthrosis of theright hip. Femoral head is well-seated within the acetabulum. No acutefracture or dislocation.. IMPRESSION: Redemonstration of bilateral total knee arthroplasties in unchangedalignment with no hardware complications. Left total hip arthroplasty in unchanged alignment with no evidence ofhardware loosening or failure. Wzik-ob-ouvqnuoi right hip osteoarthrosis. CRITICAL RESULT: No. COMMUNICATION: [...] no evidence of hardware loosening or failure. Nidz-bs-skmidlck right hip osteoarthrosis. CRITICAL RESULT: No. COMMUNICATION: [...] joints posterior fusion hardware is partially visualized. Wixh-yn-blprxvlp osteoarthrosis of the right hip. Femoral head [...] sacroiliac joints posterior fusionhardware is partially visualized. Rzaq-ko-mboeqkrn osteoarthrosis of theright hip. Femoral head is well-seated within the acetabulum. No acutefracture or dislocation.. IMPRESSION: Redemonstration of bilateral total knee arthroplasties in unchangedalignment with no hardware complications. Left total hip arthroplasty in unchanged alignment with no evidence ofhardware loosening or failure. Cayn-dg-dqwhbbwm right hip osteoarthrosis. CRITICAL RESULT: No. COMMUNICATION: [...] no evidence of hardware loosening or failure. Lben-bg-gbnbjiui right hip osteoarthrosis. CRITICAL RESULT: No. COMMUNICATION: [...] joints posterior fusion hardware is partially visualized. Vhti-gx-nvwvmrkw osteoarthrosis of the right hip. Femoral head [...] sacroiliac joints posterior fusionhardware is partially visualized. Mydr-aj-gvqcchzf osteoarthrosis of theright hip. Femoral head is well-seated within the acetabulum. No acutefracture or dislocation.. IMPRESSION: Redemonstration of bilateral total knee arthroplasties in unchangedalignment with no hardware complications. Left total hip arthroplasty in unchanged alignment with no evidence ofhardware loosening or failure. Ebod-jr-wykdsxpa right hip osteoarthrosis. CRITICAL RESULT: No. COMMUNICATION: [...] IMG XR PROCEDURES Final Resul t * NM ARTHROCENTESIS ASPIR&/INJ MAJOR JT/BURSA W/O US (02/26/2025 [...] to verify the correct patient, procedure, equipment, network support engineer and site/side marked as required. Patient was prepped and draped in the usual sterile fashion. us Jaiden Fuentes MD IN CLINIC/BEDSIDE ORDERABLES Final Result * Dexa Bone Density (08/25/2024 11:50 AM EDT) Anatomical Region Laterality Modality L-spine Radiographic Deepali ging Narrative 09/06/2024 8:02 AM EDT [facility] - Bone & Mineral Metabolism Clinic [address] [place] [address] DXA Bone Densitometry Report: [08/25/2024] BMD test performed using the IRI DXA System (analysis version: 14.10) manufactured by [employer]. REFERRING PROVIDER: Dr. Eric Barrientos MD CLINICAL [...] of change in BMD). Eric Barrientos MD IMG DXA PROCEDURES Final Resul t * (ABNORMAL) Hemoglobin A1c (04/09/2022 11:21 AM EDT) Hemoglobin A1c 6.4(H) <5.7 % 04/10/2022 8:39 AM EDT [facility] Blood Venous blood specimen / Unknown Venipuncture / Unknown 04/09/2022 11:21 AM EDT 04/09/2022 11:22 AM EDT Narrative [facility] - 04/10/2022 8:39 AM EDT HA1C Interpretive Data: Diagnosis of Diabetes: Diabetic > or = 6.5% Pre-diabetic 5.7 to 6.4% Non-diabetic < or = 5.6% Glycemic Targets for Type I and Type II Diabetics: Non- Adults <7.0% Adults <6.0% Children and Adolescents <7.5% Source: [place] Diabetes Association. Standards of medical care in diabetes,2017. Diabetes Care.2017:40 (suppl 1):S1-S135. HbA1c assay performed by an ion-exchange chromatography method that is certified traceable to the DCCT. us Pratik Carver MD LAB BLOOD ORDERABLES Final Res ult [facility] [address] [place] [phone] from Last 3 Months or Most Recently Relevant to Health Maintenance Insurance [facility] MEDICARE Advance Directives * Full Code (Latest Code Status on File) Date Activated Date Inactivated Comments 07/22/2022 1:01 PM 07/25/2022 4:04 PM Question Answer Comments Patient has decision-making capacity? Yes Care Teams Waste Paper Hammermill Operator Relationship Specialty Start Date End Date Gary Roberts MD [address] [place] [address] PCP - General 10/18/20
--- OUTSIDE RECORDS SUMMARY | 2025-05-07 13:31 | XMS_ITS | Encounter Summary ---
[facility] Address [address] [place] [id number] Care Team Providers Care Hospital Recruiter Name Role Phone Gary Roberts MD Primary Care Provider Encounter Details Date Type Department Care Team (Late st Contact Info) Description 03/28/2025 Refill [facility] GYNECOLOGY [address] [address] Martha Hutchinson MD [address] [place] [address] Atrophy of vagina Social History Tobacco Use [...] refill of Estradiol 10 MCG VA TAB [facility] [phone] documented in this encounter Plan of Treatment Upcoming Encounters Date Type Department Care Team (Late st Contact Info) Description 09/17/2025 11:10 AM EDT Appointment [facility] [address] [place] [address] 03/28/2026 11:10 AM EDT Office Visit [facility] GYNECOLOGY [address] [phone] Martha Hutchinson MD [address] [address] documented as of this encounter Visit Diagnoses Diagnosis Atrophy of vagina Postmenopausal atrophic vaginitis documented in this encounter Care Teams Hospital Recruiter Relationship Specialty Start Date End Date Gary Roberts MD [address] [facility] [address] [place] [address] PCP - General 11/11/15 documented as of this encounter
--- OUTSIDE RECORDS SUMMARY | 2025-05-07 13:31 | XMS_ITS | Encounter Summary ---
Author Organization [facility] Address [address] [place] [address] Care Team Providers Care Gravity Prospecting Operator Helper Name Role Phone Gary Roberts MD Primary Care Provider +1- [phone] Encounter Details Date Type Department Care Team (Late st Contact Info) Description 04/04/2025 Telephone [facility] Infusion [address] [place] [address] Frida Gallardo, [place] [address] Social History Tobacco Use Types Packs/Day Years [...] drink first t figueroa in the morning (EYE-PATIENT SERVICE COORDINATOR) to steady your nerves or to [...] encounter Miscellaneous Notes * Telephone Encounter - Frida Gallardo RN - 04/04/2025 5:16 PM EDT Infusion Authorization Information Specialty Medication: Prolia J-Code: J0897 CPT Code: n/a S-Codes (Mystic): n/a Quantity and Units of Measure Authorized: 120 Day Supply: 180 Diagnosis Code: M81.0 Insurance Name: [facility] Insurance Type: Medicare Where did you submit request and how (portal/fax/phone number): [facility] portal Authorization/Reference Number: [id number] Approval Dates: 04/04/2025-04/04/2026 Filling Pharmacy/SOC: [facility] Patient has been approved to receive infusion treatment at outside facility. [facility] will follow up with facility to make sure patient has been scheduled and received first dose. Specialty Medication: Prolia Filling Pharmacy/SOC: [facility] documented in this encounter Plan of Treatment Upcoming Encounters Date Type Department Care Team ([facility] st Contact Info) Description 03/21/2026 11:40 AM EDT Office Visit [facility] Nephrology, Bone & Mineral Metabolism [address], [address] [place] [address] Edinson Reyes MD [address] [place] [address] documented as of this encounter [...] documented as of this encounter Care Teams Gravity Prospecting Operator Helper Relationship Specialty Start Date End Date Gary Roberts MD [address] [place] [address] PCP - General 10/18/20 documented as of this encounter
--- OUTSIDE RECORDS SUMMARY | 2025-05-07 13:31 | XMS_ITS | Encounter Summary ---
Author Organization Healthcare Address [address] [place] [address] Care Team Providers Care Ranger Aide Name Role Phone Gary Roberts MD Primary Care Provider +1- [phone] Encounter Details Date Type Department Care Team [...] drink first t figueroa in the morning (EYE-AVAYA ENGINEER) to steady your nerves or to get [...] Description 03/21/2026 11:40 AM EDT Office Visit [facility] Nephrology, Bone & Mineral Metabolism [address] [facility], [address] [place] [address] Edinson Reyes MD [address] [place] [address] documented as of this encounter Visit Diagnoses [...] documented as of this encounter Care Teams Ranger Aide Relationship Specialty Start Date End Date Gary Roberts MD [address] [place] [address] PCP - General 10/18/20 documented as of this encounter
--- OUTSIDE RECORDS SUMMARY | 2025-05-07 13:31 | XMS_ITS | Encounter Summary ---
[facility] [address] [place] [address] Care Team Providers Care Water Softener Servicer And Installer Name Role Phone Gary Roberts MD Primary Care Provider Encounter Details Date Type Department Care Team (Late st Contact Info) Description 04/04/2025 Prior Authorization [facility] GYNECOLOGY [address] [address] Martha Hutchinson MD [address] [place] [address] Social History Tobacco Use Types Packs/Day Years [...] encounter Miscellaneous Notes * Telephone Encounter - Treasure Martinez MA - 04/04/2025 11:40 AM EDT Received a prior authorization request for vagifem. Spoke with Viraj at the [facility] Pharm[facility] and he stated that Yuvafem was actually filled with a $0 co-pay and no PA is needed. documented in this encounter Plan of Treatment Upcoming Encounters Date Type Department Care Team (Late st Contact Info) Description 09/17/2025 11:10 AM EDT Appointment [facility] [place] [address] 03/28/2026 11:10 AM EDT Office [facility] [address] [facility] [address] [place] [address] Martha Hutchinson MD [address] [place] [address] documented as of this encounter Visit Diagnoses Not on filedocumented in this encounter Care Teams Water Softener Servicer And Installer Relationship Specialty Start Date End Date Gary Roberts MD [address] [facility] [address] [facility] [place] [address] PCP - General 11/11/15 documented as of this encounter
--- NOTE | 2025-05-07 13:41 | XR_ITS ---
FINAL REPORT TECHNIQUE: 3 views left tibia and fibula CLINICAL HISTORY: r/o abscess/fracture COMPARISON: None FINDINGS: AP and lateral views of the left tibia and fibula were obtained. There is no prior exam for comparison. The patient has undergone a prior total knee arthroplasty. The hardware appears intact on this examination. There is no acute fracture of the left tibia or fibula. No bone destruction is identified. The ankle appears intact. The soft tissues are normal. IMPRESSION: Prior total hip arthroplasty, with intact hardware. Otherwise, no acute osseous abnormality of the left tibia or fibula. Reviewed, Interpreted and Dictated by Leila Basilio MD Transcribed by Amanda Bernardo Authenticated and [facility]
[2025-05-07 15:27] LABS: Hematocrit 31.8 % (37.0-47.0); Hemoglobin 10.0 g/dL (12.2-16.2); Immature Granulocytes % 0.3 %; Mean Corpuscular HGB Conc 31.4 g/dL (31.8-35.4); Mean Corpuscular Hemoglobin 27.6 pg (27.0-31.2); Mean Corpuscular Volume 87.8 fl (81-99); Nucleated Red Blood Cells % 0 %; Platelet Count 423 K/mm3 (142-424); Red Blood Count 3.62 M/mm3 (4.20-5.40); Red Cell Distribution Width-SD 46.2 fL; White Blood Count 9.8 K/mm3 (4.8-10.8)
[2025-05-07 15:57] LABS: Blood Urea Nitrogen 17 mg/dl (7-17); Creatinine,Serum 0.90 mg/dl (0.52-1.04); Estimated Glomerular Filt Rate 61 ml/min (>60); GFR (African American) 74 ML/MIN (>60)
[2025-05-07 15:58] LABS: Alanine Aminotransferase 35 U/L (12-78); Alkaline Phosphatase 110 U/L (38-126); Aspartate Amino Transferase 35 U/L (14-36); Bilirubin,Total 0.4 mg/dl (0.2-1.3); Calcium 9.0 mg/dl (8.4-10.2); Carbon Dioxide 27 mmol/L (22.0-30.0); Glucose 141 mg/dl (74-100); Total Protein,Serum 8.1 g/dl (6.3-8.2)
[2025-05-07 16:07] LABS: C-Reactive Protein 6.2 mg/L (0-4)
[2025-05-07 16:09] LABS: Albumin Level 3.8 g/dl (3.5-5.0); Albumin/Globulin Ratio 0.9 (1.1-1.8); Anion Gap 16.6 mEq/L (5-15); Chloride 102 mmol/L (98-107); Globulin 4.3 g/dL (1.3-3.2); Potassium 3.6 mmoL/L (3.5-5.1); Sodium 142 mmol/L (136-145)
== END 2025-05-07 23:59 | disposition home or self-care (01) ==
LOC: LAB 13:28
PROVIDERS: PCP Family Medicine; Visit Provider Podiatrist
DX: L03.116 Cellulitis of left lower limb (principal); I83.029 Varicose veins of left lower extremity with ulcer of unspecified site; L97.929 Non-pressure chronic ulcer of unspecified part of left lower leg with unspecified severity; Z96.642 Presence of left artificial hip joint
CPT/HCPCS: 36415; 73590; 80053; 85025; 85651; 86140

== ENCOUNTER 2025-05-08 15:02 | Outpatient (CLI) | payer MEDICARE, OTHER, SELFPAY ==
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
--- OUTSIDE RECORDS SUMMARY | 2025-03-28 10:00 | XMS_ITS | Encounter Summary ---
Author Organization [facility] Address [address] [place] [address] Care Team Providers Care Meat And Seafood Manager Name Role Phone Gary Roberts MD Primary Care Provider +1- [phone] Reason for Referral * Consultation (Routine) - Authorized Specialty Diagnoses / Procedures Referred By Contac t Referred To Contact Diagnoses Age-related osteoporosis without current pathological fracture Eric Barrientos MD [address] [place] [address] Phone: tel: fax: Referral ID Status Reason Start Date Expiration Date V isits Requested Visits Authorized [id number] Authorized 03/28/2025 09/27/2026 1 1 Reason for Visit * Reason Comments Follow-up Osteoporosis Encounter Details Date Type Department Care Team (Latest Contact Info) Description 03/28/2025 11:00 AM EDT Pharmacist Visit [facility] [address], [address] [place] [address] Chapo Santoro, PharmD [address] [place] [address] Age-related osteoporosis without current pathological [...] drink first t figueroa in the morning (EYE-LOGISTIC MANAGER) to steady your nerves or to get [...] Patient confirms they are physically located in [place]? Yes If the patient is not physically located in [place], the provider has confirmed with [facility] thatthe provider is authorized to provide services in patient's stated location? N/A Provider Location: [facility] facility Audio and video or audio only? Audio only Total visit time: 20 minutes HPI: Fani Mondragon is a 74 y.o. female with a past medical history of osteoporosis. Fani Mondragon presents to [facility] for evaluation of Denosumab (Prolia) therapy. [...] Nephrology, [facility] Clinic [address] [place] [address] [1] Current Outpatient Medications Medication Sig Dispense [...] time each day at the same time. Eovyssj-Vyyothlnu-Fxccrtt D (CALCIUM 1200+D3 PO) Take 1 tablet [...] Take 1 capsule by mouth daily. pancrelipase, Kde-Qvhr-Yran, (Zenpep) 28120-28096 units capsule delayed-release particles capsule 3(three) times [...] 8:52 PM EST Associated attestation - Eric Barrientos MD - 04/08/2025 8:52 PM EST ATTESTATION: I discussed the evaluation with the Clinical Pharmacist and concur with the treatment plan as documented in the note. Eric Barrientos MD documented in this encounter Plan of Treatment Upcoming Encounters Date Type Department Care Team ([facility] st Contact Info) Description 03/21/2026 11:40 AM EDT Office Visit [facility] Nephrology, Bone & Mineral Metabolism [address], [address] [place] [address] Edinson Reyes MD [address] [place] [phone] Scheduled Orders Name Type Priority Associated Diagnoses [...] documented as of this encounter Care Teams Meat And Seafood Manager Relationship Specialty Start Date End Date Gary Roberts MD [address] [place] [address] PCP - General 10/18/20 documented as of this encounter
--- OUTSIDE RECORDS SUMMARY | 2025-03-29 09:40 | XMS_ITS | Encounter Summary ---
Author Organization [facility] Address [address] [place] [address] Care Team Providers Care Buggy Man Name Role Phone Gary Roberts MD Primary Care Provider [phone]- [phone] Reason for Referral * Consultation (Routine) - Authorized Specialty Diagnoses / Procedures Referred By Contac t Referred To Contact Diagnoses Stage 3a chronic kidney disease (CMS/HCC) Edinson Reyes MD [address] [place] [address] Phone: tel: fax: Referral ID Status Reason Start Date Expiration Date V isits Requested Visits Authorized [id number] Authorized 03/29/2025 09/28/2026 1 1 Reason for Visit * Reason Comments Follow-up Encounter Details Date Type Department Care Team ([facility] Contact Info) Description 03/29/2025 10:40 AM EDT Office Visit [facility] Nephrology, Bone & Mineral Metabolism [address] [facility], [address] [place] [address] Edinson Reyes MD [address] [place] [address] Acute kidney injury superimposed on [...] drink first t figueroa in the morning (EYE-DRAGGER OUT) to steady your nerves or to get [...] 600-200 MG- UNIT tablet Every 24 hours Mppcnnh-Wbienakqr-Khjzlmq D (CALCIUM 1200+D3 PO) 1 tablet, Daily [...] hours omeprazole (PRILOSEC) 40 mg, Daily pancrelipase, Kvc-Msgs-Apuj, (Zenpep) 82298-22071 units capsule delayed-release particles capsule 3times daily [...] Date: 03/29/2026 Release [address] patient [address] [facility]: Immediate Urinalysis with reflex microscopic (Culture NOT Included) Standing Status: Future Expected Date: 03/29/2026 Expiration Date: 03/29/2026 Release to patient in [facility]: Immediate Protein, Random, Urine with Creatinine Standing Status: Future Expected Date: 03/29/2026 Expiration Date: 03/29/2026 Release to patient in [facility]: Immediate Creatinine, Random, Urine Standing Status: Future Expected Date: 03/29/2026 Expiration Date: 03/29/2026 Release [address] patient in [facility]: Immediate CBC W/O Differential Standing Status: Future Expected Date: 03/29/2026 Expiration Date: 03/29/2026 [facility] Cystatin C Standing Status: Future Expected Date: 03/29/2026 Expiration Date: 09/30/2026 Release to patient in [facility]: Immediate [1] Follow Up Nephrology Standing Status: [...] 2010 Peripheral neuropathy 06/07/1999 Scoliosis 2018 Seizures ([facility]) 1978 Spinal stenosis 2010 TMJ dysfunction [...] Description 03/21/2026 11:40 AM EDT Office Visit [facility] Nephrology, Bone & Mineral Metabolism [address] [facility], [address] [place] [address] Edinson Reyes MD [address] [place] [phone] Scheduled Orders Name Type Priority Associated Diagnoses Orde r Schedule Renal Function Panel, Plasma Lab Routine Stage 3a chronic kidney disease ([facility]) Expected: 03/29/2026, Expires: 03/29/2026 Urinalysis with reflex microscopic (Culture NOT Included) Lab Routine Stage 3a chronic kidney disease ([facility]) Expected: 03/29/2026, Expires: 03/29/2026 Protein, Random, Urine with Creatinine Lab Routine Stage 3a chronic kidney disease ([facility]) Expected: 03/29/2026, Expires: 03/29/2026 Creatinine, Random, [...] documented as of this encounter Care Teams Buggy Man Relationship Specialty Start Date End Date Gary oRberts MD [address] [place] [address] PCP - General 10/18/20 documented as of this encounter
--- OUTSIDE RECORDS SUMMARY | 2025-05-08 15:06 | XMS_ITS | Encounter Summary ---
[facility] Address [address] [place] [address] Care Team Providers Care Zyglo Technician Name Role Phone Gary Roberts MD [...] Info) Description 09/17/2025 11:10 AM EDT Appointment [facility] [address] [place] [address], [place] [phone] 03/28/2026 11:10 AM EDT Office Visit [facility] G[facility] [address] [phone] Martha Hutchinson MD [address] [place] [phone] documented as of this encounter Visit Diagnoses Not on filedocumented in this encounter Care Teams Zyglo Technician Relationship Specialty Start Date End Date Gary Roberts MD [address] [place] [address] PCP - General 11/11/15 documented as of this encounter
--- OUTSIDE RECORDS SUMMARY | 2025-05-08 15:06 | XMS_ITS | Encounter Summary ---
Author Organization [facility] Address [address] [place] [address] Care Team Providers Care Surgical Manager Name Role Phone Gary Roberts MD Primary Care Provider +1- [phone] Encounter Details Date Type Department Care Team ([facility] st Contact Info) Description 03/20/2025 Telephone [facility] [address], [address] [place] [address] Kalia Sanz Social History Tobacco [...] drink first t figueroa in the morning (EYE-OIL FILTERS INSPECTOR) to steady your nerves or to [...] pt states she did labs last at [facility] documented in this encounter Plan of Treatment Upcoming Encounters Date Type Department Care Team (Late st Contact Info) Description 03/21/2026 11:40 AM EDT Office Visit [facility] Nephrology, Bone & Mineral Metabolism [address], [address] [place] [phone] Edinson Reyes MD [address] [place] [phone] documented as of this encounter Visit Diagnoses [...] documented as of this encounter Care Teams Surgical Manager Relationship Specialty Start Date End Date Gary Roberts MD [address] [place] [address] PCP - General 10/18/20 documented as of this encounter
--- OUTSIDE RECORDS SUMMARY | 2025-05-08 15:06 | XMS_ITS | Encounter Summary ---
Author Organization [facility] Address [address] [place] [address] Care Team Providers Care Residential Real Estate Sales Manager Name Role Phone Gary Roberts MD Primary Care Provider Reason for Visit * Reason Onset Date Comments Med Refill 03/13/2025 Encounter Details Date Type Department Care Team (Late st Contact Info) Description 03/13/2025 Telephone [facility] G[facility]ECOLOGY [address] [phone] [place] Hutchinson MD [address] [place] [address] Med Refill Social History Tobacco Use Types [...] Info) Description 09/17/2025 11:10 AM EDT Appointment [facility] [address] [place] [place] [phone] 03/28/2026 11:10 AM EDT Office Visit [facility] G[facility] [address] [phone] Martha Hutchinson MD [address] [address] documented as of this encounter Visit Diagnoses Not on filedocumented in this encounter Care Teams Residential Real Estate Sales Manager Relationship Specialty Start Date End Date Gary Roberts MD [address] [facility] [address] [place] [address] PCP - General 11/11/15 documented as of this encounter
--- OUTSIDE RECORDS SUMMARY | 2025-05-08 15:06 | XMS_ITS | Encounter Summary ---
Author Organization [facility] Address [address] [place] [address] Care Team Providers Care Instructor Warper Name Role Phone Gary Roberts MD Primary Care Provider +1- [phone] Encounter Details Date Type Department Care Team ([facility] st Contact Info) Description 03/13/2025 Telephone [facility] [address], [address] [place] [address] Kalia Sanz Social History Tobacco [...] drink first t figueroa in the morning (EYE-KILN HAND) to steady your nerves or to get [...] pt states she wants labs fax to [facility], pt states diana try to go this week documented in this encounter Plan of Treatment Upcoming Encounters Date Type Department Care Team (Late st Contact Info) Description 03/21/2026 11:40 AM EDT Office Visit [facility] Nephrology, Bone & Mineral Metabolism [address], [address] [place] [phone] Edinson Reyes MD [address] [place] [phone] documented as of this encounter Visit Diagnoses [...] documented as of this encounter Care Teams Instructor Warper Relationship Specialty Start Date End Date Gary Roberts MD [address] [place] [address] PCP - General 10/18/20 documented as of this encounter
--- OUTSIDE RECORDS SUMMARY | 2025-05-08 15:06 | XMS_ITS | Clinical Summary ---
Author Organization [facility] ([place], [place], [place], [place], [place]) Address [address] [place] [address] Care Team Providers Care Rnfa Name Role Phone Gary Roberts MD Primary Care Provider +1- [phone] Allergies Active Allergy Reactions Criticality Noted Date [...] Date Delfin rded Speak language other than Togolese at home Not on file 06/18/2023 Want [...] Description 12/19/2025 1:00 PM EDT Office Visit [facility] Bariatric Services [address] [facility] [address] [place] [address] Shahida Orellana MD [address] [place] [address] Health Maintenance Due Date Last [...] Pneumococcal 50+ years Completed 04/20/2023, 2016 [place] [facility] [id number] [facility] MEDICARE ADVANTAGE Care Teams Rnfa Relationship Specialty Start Date End Date Gary Roberts MD [address] [place] [address] PCP - General Family Medicine 11/16/22
--- OUTSIDE RECORDS SUMMARY | 2025-05-08 15:06 | XMS_ITS | Referral Summary ---
Author Organization [facility] ([place], [place], [place], [place], [place]) Address [address] [place] [address] Care Team Providers Care Developer Designer Name Role Phone Gary Roberts MD Primary Care Provider +1- [phone] Allergies Active Allergy Reactions Criticality Noted Date [...] Date Delfin rded Speak language other than Fijian at home Not on file 06/18/2023 Want [...] Description 12/19/2025 1:00 PM EDT Office Visit [facility] Bariatric Services [address] [facility] [address] [place] [address] Shahida Orellana MD [address] [place] [address] [place] [id number] [facility] MEDIC[facility] ADV[facility] Care Teams Developer Designer Relationship Specialty Start Date End Date Gary Roberts MD [address] [place] [address] PCP - General Family Medicine 11/16/22
--- OUTSIDE RECORDS SUMMARY | 2025-05-08 15:07 | XMS_ITS | Encounter Summary ---
[facility] Address [address] [place] [phone] Care Team Providers Care Funeral Pre Need Consultant Name Role Phone Gary Roberts MD Primary Care Provider Encounter Details Date Type Department Care Team (Late st Contact Info) Description 03/28/2025 Refill [facility] GYNECOLOGY [address] [phone] [place] Hutchinson MD [address] [place] [address] Atrophy of vagina Social History Tobacco Use [...] refill of Estradiol 10 MCG VA TAB [facility] [place] [phone] documented in this encounter Plan of Treatment Upcoming Encounters Date Type Department Care Team (Late st Contact Info) Description 09/17/2025 11:10 AM EDT Appointment [facility] [address] [place] [address] 03/28/2026 11:10 AM EDT Office Visit [facility] GYN[facility]OLOGY [address] [phone] Martha Hutchinson MD [address] [address] documented as of this encounter Visit Diagnoses Diagnosis Atrophy of vagina Postmenopausal atrophic vaginitis documented in this encounter Care Teams Funeral Pre Need Consultant Relationship Specialty Start Date End Date Gary Roberts MD [address] [facility] [address] [place] [address] PCP - General 11/11/15 documented as of this encounter
--- OUTSIDE RECORDS SUMMARY | 2025-05-08 15:07 | XMS_ITS | Clinical Summary ---
Author Organization [facility] Address [address] [place] [address] Care Team Providers Care Agile Test Lead Name Role Phone Gary Roberts MD Primary Care Provider +1- [phone] Allergies Active Allergy Reactions Criticality Noted Date [...] * request cloth tape only* Medications pancrelipase, Etc-Fagj-Zgoy, (Zenpep) 91511-[address] units capsule delayed-release particles capsule 3 (three) [...] (01/29/2022): Added automatically from request for surgery [id number] Pseudarthrosis after fusion or arthrodesis 01/29 S/P [...] Department Care Team Description 04/26/2025 Telephone [facility] Bone & Mineral Metabolism [address], [address] [place] [address] Chapo Santoro, PharmD 04/12/2025 Orders Only [facility] Bone & Mineral Metabolism [address], [address] [place] [address] Chapo Santoro, PharmD Age-related osteoporosis without current pathological fracture 04/04/2025 Telephone [facility] [address] [place] [phone] Frida Gallardo RN 03/29/2025 10:40 AM EDT Office Visit [facility] Nephrology, Bone & Mineral Metabolism [address] [place] [address] Edinson Reyes MD Acute kidney injury superimposed on CKD (Primary Dx); Stage 3a chronic kidney disease (CMS/HCC); Essential hypertension; Hyperuricemia; Chronic kidney disease-mineral and bone disorder; Hypervolemia, unspecified hypervolemia type 03/29/2025 Travel 03/28/2025 11:00 AM EDT Pharmacist Visit [facility] Bone & Mineral Metabolism [address], [address] [place] [address] Chapo Santoro, PharmD Age-related osteoporosis without current pathological fracture (Primary Dx) 03/28/2025 Travel 03/20/2025 Telephone [facility] Bone & Mineral Metabolism [address], [address] [place] [address] Kalia Sanz 03/13/2025 Telephone [facility] Bone & Mineral Metabolism [address], [address] [place] [address] Kalia Sanz 03/12/2025 [facility] Bone & Mineral Metabolism [address] [facility], [address] [place] [address] Eric Barrientos MD Age-related osteoporosis without current pathological fracture 02/26/2025 12:50 PM EDT Office Visit [facility] Spine [facility] Joint [address] [facility], [address] [place] [address] Jaiden Fuentes MD Hip pain, bilateral (Primary Dx) 02/26/2025 12:29 PM EDT - 02/26/2025 11:59 PM EDT Hospital Encounter [facility] Radiology [address] [place] [address] Left knee pain, unspecified chronicity; [...] No Comments:Never Used but worked in [employer] and [employer]. Alcohol Use Standard Drinks/Week Comments [...] drink first t figueroa in the morning (EYE-WHISKEY REGAUGER) to steady your nerves or to get [...] 11:40 AM EDT Office Visit [facility], Bone & Mineral Metabolism [address] [facility], [address] [place] [address] Edinson Reyes MD [address] [place] [phone] Health Maintenance Due Date Last Done Comments [facility]-Hepatitis C Screening 1950 [facility]Medicare Annual Wellness (AWV) 1950 [facility]-Infant/Child/Adol SDOH Screenings 1950 [facility]- SDOH Screenings 1968 [facility]-Adult SDOH Screenings 1968 CT Colonography 12/24/1995 Colonoscopy 12/24/1995 FIT-DNA 12/24/1995 FIT 12/24/1995 FOBT 12/24/1995 Sigmoidoscopy 12/24/1995 [facility]-Colorectal Cancer Screening 12/24/1995 [facility]-Zoster Vaccines (1 of 2) 2000 05/24/2007, 03/29/2007 [id number] Vaccine ( season) 2025 03/11/2022, 03/12/2021, 07/22/2020, [...] this topic Medical Devices Implanted Type Area Veneer Patcher Device Identifier Shelf Expiration Date Model / Serial / Lot Chip Bone 40cc - [id number] - [id number] Implanted:Qty: 1 on 07/22/2022 by Pratik Carver MD at [facility] N/A: Spine Lumbar [facility]-[id number] 02/23/2027 PCAN1/2 / [id number] / [id number] Screw 5.5mm Viper Ti Fen Crtcl Polyax 6mm X 30mm - [id number] Implanted:Qty: 8 on 07/22/2022 by Pratik Carver MD at [facility] N/A: Spine Lumbar [id number] 07/22/2023 [id number] / / Chip Bone 40cc - [id number] - [id number] Implanted:Qty: 1 on 07/22/2022 by Pratik Carver MD at [facility] N/A: Spine Lumbar [facility]-[id number] 04/21/2027 PCAN1/2 / [id number] / [id number] Graft Vivigen 5cc - [id number] - [id number] Implanted:Qty: 1 on 07/22/2022 by Pratik Carver MD at [facility] N/A: Spine Lumbar [facility]-[id number] 07/01/2023 BL-1500-002 / [id number] / [id number] Screw 5.5mm Viper Ti Fen Crtcl Polyax 5mm X 40mm - [id number] Implanted:Qty: 2 on 07/22/2022 by Pratik Carver MD at [facility] N/A: Spine Lumbar [id number] 07/22/2023 [id number] / / Screw Exp Viper Lg Tit 9x100 - [id number] Implanted:Qty: 1 on 07/22/2022 by Pratik Carver MD at [facility] N/A: Spine Lumbar [employer]-[id number] 07/22/2023 [id number] / / Screw 5.5mm Viper Ti Polyax Fullthrd 8mm X 100mm - [id number] Implanted:Qty: 1 on 07/22/2022 by Pratik Carver MD at [facility] N/A: Spine Lumbar [employer]-[id number] 07/22/2023 [id number] / / Single Inner Setscrew - [id number] Implanted:Qty: 23 on 07/22/2022 by Pratik Carver MD at [facility] N/A: Spine Lumbar [employer]-[id number] 07/22/2023 [id number] / / Ap Expedium Ti Precontoured Small 5.5mm - [id number] Implanted:Qty: 2 on 07/22/2022 by Pratik Carver MD at [facility] N/A: Spine Lumbar [employer]-[id number] 07/22/2023 [id number] / / Plate Sfx 5.5 Ti Med Size A5 - [id number] Implanted:Qty: 1 on 07/22/2022 by Pratik Carver MD at [facility] N/A: Spine Lumbar [employer] -[id number] 07/22/2023 [id number] / / Procedures Procedure Name Priority Date/Time Associated Diagnosis Comments XR KNEE RIGHT 1 OR 2 VIEWS Routine 02/26/2025 12:51 PM EDT Pain XR HIPS BILATERAL 2 VIEWS Routine 02/26/2025 12:51 PM EDT Hip pain, bilateral XR KNEE LEFT 1 OR 2 VIEWS Routine 02/26/2025 12:51 PM EDT Left knee pain, unspecified chronicity VT ARTHROCENTESIS ASPIR&/INJ MAJOR JT/BURSA W/O US Routine [...] no evidence of hardware loosening or failure. Tjaj-jq-fencpcna right hip osteoarthrosis. CRITICAL RESULT: No. COMMUNICATION: [...] joints posterior fusion hardware is partially visualized. Hnyg-xl-ataqybiv osteoarthrosis of the right hip. Femoral head [...] sacroiliac joints posterior fusionhardware is partially visualized. Ryhl-ui-nzrlupnq osteoarthrosis of theright hip. Femoral head is well-seated within the acetabulum. No acutefracture or dislocation.. IMPRESSION: Redemonstration of bilateral total knee arthroplasties in unchangedalignment with no hardware complications. Left total hip arthroplasty in unchanged alignment with no evidence ofhardware loosening or failure. Rkjm-yh-iexsrkwx right hip osteoarthrosis. CRITICAL RESULT: No. COMMUNICATION: [...] no evidence of hardware loosening or failure. Geuo-nd-publlkcf right hip osteoarthrosis. CRITICAL RESULT: No. COMMUNICATION: [...] joints posterior fusion hardware is partially visualized. Aauu-gj-tamcmrdr osteoarthrosis of the right hip. Femoral head [...] sacroiliac joints posterior fusionhardware is partially visualized. Ppoi-no-rdkcreik osteoarthrosis of theright hip. Femoral head is well-seated within the acetabulum. No acutefracture or dislocation.. IMPRESSION: Redemonstration of bilateral total knee arthroplasties in unchangedalignment with no hardware complications. Left total hip arthroplasty in unchanged alignment with no evidence ofhardware loosening or failure. Vptj-ov-yfnugvnw right hip osteoarthrosis. CRITICAL RESULT: No. COMMUNICATION: [...] no evidence of hardware loosening or failure. Bobi-nf-ybliufae right hip osteoarthrosis. CRITICAL RESULT: No. COMMUNICATION: [...] joints posterior fusion hardware is partially visualized. Vgju-fh-vexslues osteoarthrosis of the right hip. Femoral head [...] sacroiliac joints posterior fusionhardware is partially visualized. Dhat-fm-ghqkkhcz osteoarthrosis of theright hip. Femoral head is well-seated within the acetabulum. No acutefracture or dislocation.. IMPRESSION: Redemonstration of bilateral total knee arthroplasties in unchangedalignment with no hardware complications. Left total hip arthroplasty in unchanged alignment with no evidence ofhardware loosening or failure. Zhca-jz-nqtbecve right hip osteoarthrosis. CRITICAL RESULT: No. COMMUNICATION: [...] IMG XR PROCEDURES Final Resul t * VT ARTHROCENTESIS ASPIR&/INJ MAJOR JT/BURSA W/O US (02/26/2025 [...] to verify the correct patient, procedure, equipment, naval surface fire support planner and site/side marked as required. Patient was prepped and draped in the usual sterile fashion. us Jaiden Fuentes MD IN CLINIC/BEDSIDE ORDERABLES Final Result * Dexa Bone Density (08/25/2024 11:50 AM EDT) Anatomical Region Laterality Modality L-spine Radiographic Deepali ging Narrative 09/06/2024 8:02 AM EDT [facility] - Bone & Mineral Metabolism Clinic [address] [place] [address] DXA Bone Densitometry Report: [08/25/2024] BMD test performed using the [employer] DXA System (analysis version: 14.10) manufactured by [employer]. REFERRING PROVIDER: Dr. Eric Barrientos MD CLINICAL [...] 6.4(H) <5.7 % 04/10/2022 8:39 AM EDT [facility] Blood Venous blood specimen / Unknown [...] Adults <6.0% Children and Adolescents <7.5% Source: [place] Diabetes Association. Standards of medical care in diabetes,2017. Diabetes Care.2017:40 (suppl 1):S1-S135. HbA1c assay performed by an ion-exchange chromatography method that is certified traceable to the DCCT. us Pratik Carver MD LAB BLOOD ORDERABLES Final Res ult [facility] [address] [place] [phone] from Last 3 Months or Most Recently Relevant to Health Maintenance Insurance [facility] MEDICARE Advance Directives * Full Code (Latest Code Status on File) Date Activated Date Inactivated Comments 07/22/2022 1:01 PM 07/25/2022 4:04 PM Question Answer Comments Patient has decision-making capacity? Yes Care Teams Agile Test Lead Relationship Specialty Start Date End Date Gary Roberts MD [address] [place] [address] PCP - General 10/18/20
--- OUTSIDE RECORDS SUMMARY | 2025-05-08 15:07 | XMS_ITS | Encounter Summary ---
[facility] Address [address] [place] [address] Care Team Providers Care Program Developer Name Role Phone Gary Roberts MD Primary Care Provider Encounter Details Date Type Department Care Team (Late st Contact Info) Description 04/04/2025 Prior Authorization [facility] [address] [address] Martha Hutchinson MD [address] [place] [address] Social History Tobacco Use Types Packs/Day Years [...] Info) Description 09/17/2025 11:10 AM EDT Appointment [facility] [address] 03/28/2026 11:10 AM EDT Office Visit [facility] [address] [facility] [address] [place] [address] Martha Hutchinson MD [address] [place] [address] documented as of this encounter Visit Diagnoses Not on filedocumented in this encounter Care Teams Program Developer Relationship Specialty Start Date End Date Gary Roberts MD [address] [facility] [address] [facility] [address] PCP - General 11/11/15 documented as of this encounter
--- OUTSIDE RECORDS SUMMARY | 2025-05-08 15:07 | XMS_ITS | Clinical Summary ---
[facility] Organization [facility] Address [address] [place] [address] Care Team Providers Care Quarter Doper Name Role Phone Gary Roberts MD Primary [...] (ZYLOPRIM) 300 MG tablet 7 Active ZENPEP 57593-63868 units capsule delayed-release particles TAKE 1 CAPSULE [...] Take 1 packet by mouth Daily. Active [place]-3 Fatty Acids (fish oil) 1000 MG capsule [...] Every 12 (Twelve) Hours. Active nystatin (MYCOSTATIN) 247903 UNIT/GM powder Apply topically to the appropriate [...] Department Care Team Description 04/04/2025 Prior Authorization [facility] [address] [address] Martha Hutchinson MD 03/28/2025 Refill [facility] [address] [address] Martha Hutchinson MD Atrophy of vagina 03/19/2025 2:10 PM EDT Office Visit [facility] [address] [address] Martha Hutchinson MD Women's annual routine gynecological examination (Primary Dx); Encounter for screening mammogram for breast cancer; Vaginal atrophy 03/19/2025 Travel 03/13/2025 Telephone [facility] [address] [facility] [address] [place] [address] Martha Hutchinson MD Med Refill [...] Info) Description 09/17/2025 11:10 AM EDT Appointment [facility] [address] [place] [address] 03/28/2026 11:10 AM EDT Office Visit [facility] [address] [place] [address] Martha Hutchinson MD [address] [facility] [address] [place] [address] Health Maintenance Due Date Last Done Comments [...] fall-prevention measurements. The National Osteoporosis Foundation recommends (http://www.nof.org/hcp/practice/nfpubmey-ymp-lwyfmdzu-guidelines/clinic ans-guide) that FDA-approved medical therapies be considered [...] the left hip with 95% confidence is 0.921311 gm/cm2 at the hip and 0.861703 g/cm2 at the lumbar spine. This report [...] fall-prevention measurements. The National Osteoporosis Foundation recommends (http://www.nof.org/hcp/practice/hswonvgz-wow-olaieqpq-guidelines/clinic ans-guide) that FDA-approved medical therapies be considered [...] the left hip with 95% confidence is 0.584674 gm/cm2 at the hip and 0.574646 g/cm2 at the lumbar spine. This report was finalized on 11/24/2018 12:[address] Jose Latif. Jacky Quezada MD IMG DXA ORDERABLES Final Result * (ABNORMAL) Hemoglobin A1c (06/26/2014 10:55 AM EST) Hemoglobin A1C 6.5(H) 4.00 - 6.00 % [facility] Comment: DF by IF @ 06/26/2014 11:44 The [place] Diabetes Association recommends maintenance of Hemoglobin A1C at 7.0% or lower. Goals for Hemoglobin A1C reduction may need to be modified if hypoglycemia is a problem. Mean Bld Glu Estim. 135 mg/dL [facility] Blood specimen (specimen) 06/26/2014 10:55 AM EST Narrative [facility] - 06/26/2014 11:44 AM EST Specimen Type: Blood us Curt Gipson MD LAB BLOOD ORDERABLES Final Resu lt [facility] [address] [place] [address], from Last 3 Months or Most Recently Relevant to Health Maintenance Insurance [employer] [facility] Medicare Advantage GROUP PPO Care Teams Quarter Doper Relationship Specialty Start Date End Date Gary Roberts MD [address] [place] [address] [address] [facility] [address] [place] [address] PCP - General 11/11/15
--- OUTSIDE RECORDS SUMMARY | 2025-05-08 15:07 | XMS_ITS | Encounter Summary ---
Author Organization [facility] Address [address] [place] [address] Care Team Providers Care Watcher Lookout Tower Name Role Phone Gary Roberts MD Primary Care Provider +1- [phone] Encounter Details Date Type Department Care Team (Late st Contact Info) Description 04/04/2025 Telephone [facility] [address] [place] [address] Frida Gallardo, [place] [address] Social History Tobacco Use Types Packs/Day Years [...] drink first t figueroa in the morning (EYE-SCARFER) to steady your nerves or to get [...] Prolia J-Code: J0897 CPT Code: n/a S-Codes (Aldrich): n/a Quantity and Units of Measure Authorized: 120 Day Supply: 180 Diagnosis Code: M81.0 Insurance Name: [facility] Insurance Type: Medicare Where did you submit request and how (portal/fax/phone number): [facility] portal Authorization/Reference Number: [id number] Approval Dates: 04/04/2025-04/04/2026 Filling Pharmacy/SOC: [facility] Patient has been approved to receive infusion treatment at outside facility. [facility] will follow up with facility to make sure patient has been scheduled and received first dose. Specialty Medication: Prolia Filling Pharmacy/SOC: [facility] documented in this encounter Plan of Treatment Upcoming Encounters Date Type Department Care Team ([facility] st Contact Info) Description 03/21/2026 11:40 AM EDT Office Visit [facility] Nephrology, Bone & Mineral Metabolism [address] [facility], [address] [place] [address] Edinson Reyes MD [address] [place] [address] documented as of this encounter [...] documented as of this encounter Care Teams Watcher Lookout Tower Relationship Specialty Start Date End Date Gary Roberts MD [address] [place] [address] PCP - General 10/18/20 documented as of this encounter
--- OUTSIDE RECORDS SUMMARY | 2025-05-08 15:07 | XMS_ITS | Encounter Summary ---
Author Organization [facility] Address [address] [place] [address] Care Team Providers Care Manager Statistics Name Role Phone Gary Roberts MD Primary Care Provider +1- [phone] Encounter Details Date Type Department Care Team ([facility] st Contact Info) Description 04/26/2025 Telephone [facility] Mineral Met[facility] [address] [facility], [address] [place] [address] Chapo Santoro, PharmD [address] [place] [address] Social History Tobacco Use Types [...] drink first t figueroa in the morning (EYE-CLOTH COLORER) to steady your nerves or to get [...] ~2 weeks after finishing antibiotics before calling [facility] to schedule. Patient expressed understanding of plan outlined above, encouraged to call clinic with any questions or concerns. Chapo Santoro, AdrianoD, BCACP Clinical Pharmacist Nephrology, Bone & Mineral Metabolism Clinic [address] [place] [address] documented in this encounter Plan of Treatment Upcoming Encounters Date Type Department Care Team (Late st Contact Info) Description 03/21/2026 11:40 AM EDT Office Visit [facility] Nephrology, Bone & Mineral Metabolism [address] [facility], [address] [place] [address] Edinson Reyes MD [address] [place] [address] documented as of this encounter Visit Diagnoses [...] as of this encounter Care Teams Manager Statistics Relationship Specialty Start Date End Date Gary Roberts MD [address] [place] [address] PCP - General 10/18/20 documented as of this encounter
--- OUTSIDE RECORDS SUMMARY | 2025-05-08 15:07 | XMS_ITS | Encounter Summary ---
Author Organization [facility] Address [address] [place] [address] Care Team Providers Care Switch Foreman Name Role Phone Gary Roberts MD Primary Care Provider +1- [phone] Reason for Visit * Reason Onset Date Comments Med Refill 03/12/2025 Encounter Details Date Type Department Care Team (Late st Contact Info) Description 03/12/2025 Refill [facility] Met[facility] [address], [address] [place] [address] Eric Barrientos MD [address] [place] [address] Age-related osteoporosis without current pathological [...] drink first t figueroa in the morning (EYE-RUNSTITCHING MACHINE OPERATOR) to steady your nerves or [...] Description 03/21/2026 11:40 AM EDT Office Visit [facility] Nephrology, Bone & Mineral Metabolism [address] [facility], [address] [place] [address] Edinson Reyes MD [address] [place] [address] documented as of this encounter Visit [...] documented as of this encounter Care Teams Switch Foreman Relationship Specialty Start Date End Date Gary Roberts MD [address] [place] [address] PCP - General 10/18/20 documented as of this encounter
--- OUTSIDE RECORDS SUMMARY | 2025-05-08 15:07 | XMS_ITS | Encounter Summary ---
Author Organization [facility] Address [address] [place] [address] Care Team Providers Care Vp Customer Development Name Role Phone Gary Roberts MD Primary Care Provider +1- [phone] Encounter Details Date Type Department Care Team [...] drink first t figueroa in the morning (EYE-SALES FLOOR TEAM MEMBER) to steady your nerves or to get [...] AM EDT Office Visit [facility] Nephrology, Bone & Mineral Metabolism [address] [facility], [address] [place] [address] Edinson Reyes MD [address] [place] [address] documented as of this encounter Visit Diagnoses [...] documented as of this encounter Care Teams Vp Customer Development Relationship Specialty Start Date End Date Gary Roberts MD [address] [place] [address] PCP - General 10/18/20 documented as of this encounter
--- OUTSIDE RECORDS SUMMARY | 2025-05-08 15:07 | XMS_ITS | Encounter Summary ---
Author Organization [facility] Address [address] [place] [address] Care Team Providers Care Meat Slicer Name Role Phone Gary Roberts MD Primary Care Provider +1- [phone] Encounter Details Date Type Department Care Team ([facility] st Contact Info) Description 04/12/2025 Orders Only [facility] [address] [facility], [address] [place] [address] Chapo Santoro, PharmD [address] [place] [address] Age-related osteoporosis without current pathological [...] t figueroa in the morning (EYE-DIRECTOR OF PURCHASING) to steady your nerves or to get [...] Description 03/21/2026 11:40 AM EDT Office Visit [facility] Nephrology, Bone & Mineral Metabolism [address] [facility], [address] [place] [address] Edinson Reyes MD [address] [place] [address] documented as of this encounter Visit [...] as of this encounter Care Teams Meat Slicer Relationship Specialty Start Date End Date Gary Roberts MD [address] [place] [address] PCP - General 10/18/20 documented as of this encounter
--- OUTSIDE RECORDS SUMMARY | 2025-05-08 15:07 | XMS_ITS | Encounter Summary ---
Author Organization [facility] Address [address] [place] [place] [address] Care Team Providers Care Professor Of English Name Role Phone Gary Roberts MD Primary Care Provider +1- [phone] Encounter Details Date Type Department Care Team [...] drink first t figueroa in the morning (EYE-BURN OUT SCARFING OPERATOR) to steady your nerves or to [...] & Mineral Metabolism [address] [facility], [address] [place] [address] Edinson Reyes MD [address] [place] [address] documented as of this encounter Visit [...] documented as of this encounter Care Teams Professor Of English Relationship Specialty Start Date End Date Gary Roberts MD [address] [place] [address] PCP - General 10/18/20 documented as of this encounter
== END 2025-05-08 23:59 | disposition home or self-care (01) ==
LOC: RT 15:02
PROVIDERS: PCP Family Medicine; Visit Provider Physician Assistant
DX: I48.91 Unspecified atrial fibrillation (principal)
CPT/HCPCS: 93270

== ENCOUNTER 2025-05-14 12:51 | Outpatient (CLI) | payer MEDICARE, OTHER, SELFPAY ==
--- NOTE | 2025-05-14 12:53 | CT_ITS ---
PROCEDURE INFORMATION: Exam: CT Left Lower Extremity Without and With Contrast, Ankle Exam date and time: 05/14/2025 1:14 PM Age: 74 years old Clinical indication: Other: Evaluate infected hematoma vs abscess TECHNIQUE: Imaging protocol: CT of the left lower extremity without and with intravenous contrast was performed. Exam focused on the ankle. Radiation optimization: All CT scans at this facility use at least one of these dose optimization techniques: automated exposure control; mA and/or kV adjustment per patient size (includes targeted exams where dose is matched to clinical indication); or iterative reconstruction. Contrast material: ISOVUE; Contrast volume: 120 ml; Contrast route: IV; COMPARISON: MR FOOT LT WO CON 10/31/2024 12:59 PM FINDINGS: Bones/joints: No acute fracture or dislocation. No cortical erosions or periosteal reaction to suggest osteomyelitis. Plantar calcaneal enthesophyte. Midfoot degenerative changes. Heterotopic ossification medial to the talonavicular joint. Soft tissues: Diffuse soft tissue swelling of the lower leg and ankle. No focal fluid collection or abscess. Vasculature: Vascular calcifications. IMPRESSION: 1. Diffuse soft tissue swelling of the lower leg and ankle. Correlate clinically for cellulitis. No focal fluid collection or abscess. 2. No CT evidence of acute osteomyelitis. MRI is more sensitive and may be obtained for further evaluation if clinical suspicion is high.
[2025-05-14] MEDS: 0.9 % SODIUM CHLORIDE 50 ML VIAL IV (13:24)
[2025-05-14] MEDS: SODIUM CHLORIDE 0.9% 10ML SYR (RAD ONLY) 10 ML IV (13:24)
[2025-05-14] MEDS: IOPAMIDOL-370 (76%);100ML BOTTLE 120 ML IV (13:24)
== END 2025-05-14 23:59 | disposition home or self-care (01) ==
LOC: RAD 12:52
PROVIDERS: PCP Family Medicine; Visit Provider Podiatrist
DX: M79.89 Other specified soft tissue disorders (principal); L03.116 Cellulitis of left lower limb; I83.029 Varicose veins of left lower extremity with ulcer of unspecified site; L97.929 Non-pressure chronic ulcer of unspecified part of left lower leg with unspecified severity
CPT/HCPCS: 73702; Q9967

== ENCOUNTER 2025-05-23 10:55 | Outpatient (CLI) | payer MEDICARE, OTHER, SELFPAY ==
--- OUTSIDE RECORDS SUMMARY | 2025-02-08 11:15 | XMS_ITS ---
Author Organization [facility] Address [address] [facility] [address] [place] [phone] Care Team Providers Care Store Management Trainee Name Role Phone Samy Roberts Primary Care Provider [phone] REASON FOR VISIT allergy shot Medications Medication SIG (Take, Route, Frequency, Duration) Notes Start Date End Date Status levoFLOXacin 500 MG 1 tablet Orally Once a day; Duration: 10 day(s) 01/23/2025 Active Olmesartan Medoxomil 20 mg take 1 tablet orally once a day; Duration: 90 days Active CareTouch CPAP & BIPAP Hose as directed 08/18/2021 Active Rosuvastatin Calcium 10 mg TAKE ONE TABLET BY MOUTH EVERY DAY; Duration: 90 Active Allopurinol 300 mg TAKE ONE TABLET BY M OUTH EVERY DAY; Duration: 90 Active Omeprazole 40 MG 1 cap(s) orally once a day Active Albuterol Sulfate HFA 108 (90 Base) MCG/ACT 1 puff as needed Inhalation every 4 hrs Active Zenpep 72260-88714 UNIT 1 cap(s) Orally Three times a day Active Nystatin-Triamcinolone 767400-2.1 UNIT/GM 1 application Externally Twice a day 04/28/2024 Active Furosemide 20 MG 1 tablet Orally once daily; Duration: 90 days Active Fish Oil 1200 MG 1 cap(s) orally once daily Active Keppra XR 500 MG 1 q am, 4 q hs orally Active Azelastine HCl 137 MCG/SPRAY 2 spray(s) intranasally 2 times a day Active Gabapentin 100 MG 2 caps orally qid Active Vagifem 10 MCG 1 tab(s) intravagina lly 3 times a week Active Olopatadine HCl 0.1 % 1 drop into affect ed eye Ophthalmic Twice a day Active Prolia 60 MG/ML as directed Subcutan eous every 6 months Active Aspirin 81 81 MG 1 tablet Orally Once a day; Duration: 30 day(s) Active Calcium 600 + Minerals 600-200 MG-UNIT 2 tab(s) orally once a day; Duration: 30 day(s) Active Multiple Vitamin - 1 cap(s) orally once a day; Duration: 30 day(s) Active Encounters Encounter Location Date Provider Diagnosis [facility] [address] [facility] [address] [place] [id number] 02/08/2025 Samy Roberts Allergic rhinitis J30.9 Assessments Encounter Date Diagnosis (ICD Code) Assessment Notes Treatment Notes Treatment Clinical Notes Section Notes 02/08/2025 Allergic rhinitis (ICD-10 - J30.9) Plan Of Treatment Next Appt Details Follow Up: as scheduled, Carson son: Medications Administered Medication Instructions Date of Administration Dosage Notes allergy 02/08/2025 0.20 mL mix DP: right arm allergy 02/08/2025 0.20 mL mix RON: left arm Progress Notes * Stella MONDRAGONB:1950 ( 74 yo F)Acc No.[id number]:02/08/2025 Patient: Samy DARBY Fani Provider: Samy Roberts M.D. :1950 A ge:74 Y S ex:Female Date:02/08/2025 Address:[address] [place], [place] [phone] Subjective: * Chief Complaints: * 1 . [...] Inhalation every 4 hrs , Taking Zenpep 89775-38634 UNIT Capsule Delayed Release Particles 1 cap(s) Orally Three times a day , Taking Nystatin-Triamcinolone 252532-7.1 UNIT/GM Cream 1 application Externally Twice a [...] Vitals: Assessment: * Assessment: 1. A llergic rhinitis - J30.9 (Primary) Plan: * Treatment: * Therapeutic Injections: allergy : 0.20 mL (Route: Subcutaneous) given by CANDIDO Guzman on right deltoid (Allergic rhinitis) allergy : 0.20 mL (Route: Subcutaneous) given by CANDIDO Guzman on left deltoid (Allergic rhinitis) * Procedure Codes: 9 5117 IMMUNOTHERAPY INJECTIONS * Follow Up: a s scheduled * Images: Billing Information: * Visit Code: * Procedure Codes: 16297 IMMUNOTHERAPY INJECTIONS. * Electronic signature of Samy Roberts MD on 05/23/2025 at 12:34 PM EST Sign off status: Pending * Provider: Samy Roberts M.D. Date: 0 02/08/2025 Generated for Rose varela/Aida/Jae on: 1 07/24/2024 12:34 PM EST
--- OUTSIDE RECORDS SUMMARY | 2025-02-20 11:00 | XMS_ITS ---
Author Organization [facility] Address [address] [facility] [address] [place] [id number] Care Team Providers Care Physician Underwriter Name Role Phone Samy Roberts Primary Care Provider Allergies Allergen (clinical drug ingredient) Drug/Non Drug Allergy documented on EMR Reaction Allergy Type Onset Date Status amoxicillin Amoxicillin Unknown Drug Allergy Act alexis budesonide Budesonide Unknown Drug Allergy Activ e Cefdinir does not help Drug Allergy Act [...] Range Notes CBC Fingerstick (in house) Reviewed date:02/21/2025 10:08:22 AM Interpretation: Performing Lab: Notes/Report: wbc 13.2 3.5 - 10 lym 25.5% 15 - 50 mid 6.2% 2 - 15 gran 68.3% 35 - 80 rbc 4.47 3.5 - 5.5 hgb 12.3 11.5 - 16.5 hct 38.3 35 - 55 mcv 85.5 75 - 100 mch 27.5 25 - 35 mchc 32.1 31 - 38 plat 236 100 - 400 REASON FOR VISIT poss.sinsus Medications Medication SIG (Take, Route, Frequency, Duration) Notes Start Date End Date Status Prolia 60 MG/ML as directed Subcutan eous every 6 months Active Calcium 600 + Minerals 600-200 MG-UNIT 2 tab(s) orally once a day; Duration: 30 day(s) Active Aspirin 81 81 MG 1 tablet Orally Once a day; Duration: 30 day(s) Active Gabapentin 100 MG 2 caps orally qid Active Multiple Vitamin - 1 cap(s) orally once a day; Duration: 30 day(s) Active Doxycycline Hyclate 100 MG 1 capsule Orally twice a day; Duration: 10 days 02/20/2025 Active levoFLOXacin 500 MG 1 tablet Orally Once a day; Duration: 10 day(s) 01/23/2025 Active Olopatadine HCl 0.1 % 1 drop into affect ed eye Ophthalmic Twice a day Active CareTouch CPAP & BIPAP Hose as directed 08/18/2021 Active Olmesartan Medoxomil 20 mg take 1 tablet orally once a day; Duration: 90 days Active Zenpep 35003-72921 UNIT 1 cap(s) Orally Three times a day Active Furosemide 20 MG 1 tablet Orally once daily; Duration: 90 days Active Nystatin-Triamcinolone 653200-0.1 UNIT/GM 1 application Externally Twice a day 04/28/2024 Active Rosuvastatin Calcium 10 mg TAKE ONE TABLET BY MOUTH EVERY DAY; Duration: 90 Active Allopurinol 300 mg TAKE ONE TABLET BY M OUTH EVERY DAY; Duration: 90 Active Fish Oil 1200 MG 1 cap(s) orally once daily Active Omeprazole 40 MG 1 cap(s) orally once a day Active Keppra XR 500 MG 1 q am, 4 q hs orally Active Albuterol Sulfate HFA 108 (90 Base) MCG/ACT 1 puff as needed Inhalation every 4 hrs Active Azelastine HCl 137 MCG/SPRAY 2 spray(s) intranasally 2 times a day Active Vagifem 10 MCG 1 tab(s) intravagina lly 3 times a week Active Vital Signs Weight 191.4 lbs 02/20/2025 Blood pressure systolic 120 mm Hg 02/21/20 25 Blood pressure diastolic 72 mm Hg 025 Heart Rate 103 /min 02/20/2025 Height 64.50 in 02/20/2025 BMI 32.34 kg/m2 02/20/2025 Encounters Encounter Location Date Provider Diagnosis [facility] [address] [place] [phone] 02/20/2025 Samy Roberts Allergic rhinitis J30.9 and Acute sinusitis J01.90 Assessments Encounter Date Diagnosis (ICD Code) Assessment Notes Treatment Notes Treatment Clinical Notes Section Notes 02/20/2025 Allergic rhinitis (ICD-10 - J30.9) 02/20/2025 Acute sinusitis (ICD-10 - J01.90) Plan Of Treatment Medication Medication Name Sig Start Date Stop Date Notes Doxycycline Hyclate 100 MG 1 capsule Ora lly twice a day; Duration: 10 days 02/20/2025 Next Appt Details Follow Up: prn, Reason: Medications Administered Medication Instructions Date of Administration Dosage Notes allergy 02/20/2025 0.25 mL extract: DP- R A allergy 02/20/2025 0.25 mL extract: RON- LA Progress Notes * Ana MONDRAGONAlexB:1950 ( 74 yo F)Acc No.[id number]:02/20/2025 Progress Notes Patient: Fani HENLEY Provider: Samy Roberts M.D. :1950 A ge:74 Y S ex:Female Date:02/20/2025 Address:[address] [place], [place] [phone] Subjective: * Chief Complaints: * 1 . Poss.sinsus. * HPI: E NT/respiratory: 74 year old female presents with c/o cough P t states cough has been within the last several days. Pt states it feels like a tickle. Pt states she has some yellow sputum in the morning . c/o headache P t states she feels like she has sinus pressure. nasal congestion r unny nose. * Medical History: S eizure disorder, Seasonal [...] Replacement 03/17/2013, Rt Total Knee Replacement 11/15/2013, [facility]-Lumbar Fusion (L3,L4,L5) - Dr. Gipson 06/2014, Gastric Sleeve 03/26/17, Lt Eye Cataract- Dr. Zaman 02/2019, T11-L5 spinal fusion, Dr. Wen quintero 04/05/2019, Rt Cataract 10/2019, Back Surgery/ Rods placed by Dr. Carver - 07/22/2022. * Hospitalization/Major Diagno stic Procedure: S vijay 1978 ,1995. * Family History: F ather: 64 yrs, [place]. M other: 69 yrs, [place]. P aternal [...] Inhalation every 4 hrs , Taking Zenpep 67992-46023 UNIT Capsule Delayed Release Particles 1 cap(s) Orally Three times a day , Taking Nystatin-Triamcinolone 428717-0.1 UNIT/GM Cream 1 application Externally Twice a [...] Side Effects. Objective: * Vitals: W t: 191.4, Temp: 98.3, BP: 120/72, HR: 103, Nurse: SHIRA, Ht: 64.50, BMI:32.34. * Examination: E NT/Respiratory: General Appearance: N AD. E ars: a uditory canals normal bilaterally, TM's WNL. N ose : m ild congestion. S inuses : T ken over left maxillary sinus. O ral cavity : n o erythema or exudate seen on pharynx. H eart : R RR, normal S1 S2, no murmurs. L ungs: c lear to auscultation bilaterally. ? Assessment: * Assessment: 1. A llergic rhinitis - J30.9 (Primary) 2 . A cute sinusitis - J01.90 ? Plan: * Treatment: * Therapeutic Injections: allergy : 0.25 mL (Route: Subcutaneous) given by Sara Thornton , EPE on right deltoid (Allergic rhinitis) allergy : 0.25 mL (Route: Subcutaneous) given by Sara Thornton , EPE on left deltoid (Allergic rhinitis) * Labs: * L ab: CBC Fingerstick (in house) (Collection Date & Time - 02/20/2025) Value Reference Range w bc 13.2 3.5 - 10 * l ym 25.5% 15 - 50 * m id 6.2% 2 - 15 * g ran 68.3% 35 - 80 * r bc 4.47 3.5 - 5.5 * h gb 12.3 11.5 - 16.5 * h ct 38.3 35 - 55 * m cv 85.5 75 - 100 * m ch 27.5 25 - 35 * m chc 32.1 31 - 38 * p lat 236 100 - 400 * Vicki Singer 02/20/2025 04:29: 58 PM EDT > Provider reviewed results while patient in office. * Procedure Codes: G 2211 Complex e/[place], [address] CAPILLARY BLOOD DRAW, 88731 CBC WITH AUTO DIFF, 39169 IMMUNOTHERAPY INJECTIONS, 1036F TOBACCO NON-USER, G8783 BP SCR PRFRM RCMDD DEFIND SCR INTVL, 3074F SYST BP LT 130 MM HG, 3078F DIAST BP < 80 MM HG * Follow Up: p rn * Images: Billing Information: * Visit Code: 89242 Office Visit, Est Pt., Level 3. Modifiers: 25 * Procedure Codes: G2211 Complex e/[place]. [address] CAPILLARY BLOOD DRAW. 95713 CBC WITH AUTO DIFF. 97019 IMMUNOTHERAPY INJECTIONS. 1036F TOBACCO NON-USER. G8783 BP SCR PRFRM RCMDD DEFIND SCR INTVL. 3074F SYST BP LT 130 MM HG. 3078F DIAST BP < 80 MM HG. * Electronic signature of Samy Roberts MD on 05/23/2025 at 12:35 PM EST Sign off status: Pending * Provider: Samy Roberts M.D. Date: 0 02/20/2025 Generated for Rose varela/Aida/Jae on: 1 07/24/2024 12:35 PM EST History and Physical Notes * HPI (History of Present Illness) Category Sub-Category Detail Notes Category Not es ENT/respiratory cough Pt states cough has been within the last several days. Pt states it feels like a tickle. Pt states she has some yellow sputum in the morning headache Pt states she feels like she has sinus pressure nasal congestion runny nose Examination Category Sub-Category Detail Notes Category Not es ENT/Respiratory Oral cavity : no erythema or exudate s een on pharynx Sinuses : Tender over left max illary sinus Ears: auditory canals norm al bilaterally, TM's WNL Heart : RRR, normal S1 S2, n o murmurs Lungs: clear to auscultatio n bilaterally General Appearance: NAD Nose : mild congestion
--- OUTSIDE RECORDS SUMMARY | 2025-03-02 08:30 | XMS_ITS ---
Author Organization [facility] Address [address] [place] [id number] Care Team Providers Care Sharepoint Administrator Name Role Phone Samy Roberts Primary Care Provider [phone] REASON FOR VISIT allergy shot Medications Medication SIG (Take, Route, Frequency, Duration) Notes Start Date End Date Status Doxycycline Hyclate 100 MG 1 capsule Orally twice a day; Duration: 10 days 02/20/2025 Active CareTouch CPAP & BIPAP Hose as directed 08/18/2021 Active Rosuvastatin Calcium 10 mg TAKE ONE TABLET BY MOUTH EVERY DAY; Duration: 90 Active Olmesartan Medoxomil 20 mg take 1 tablet orally once a day; Duration: 90 days Active Furosemide 20 MG 1 tablet Orally once daily; Duration: 90 days Active Allopurinol 300 mg TAKE ONE TABLET BY M OUTH EVERY DAY; Duration: 90 Active Nystatin-Triamcinolone 609755-8.1 UNIT/GM 1 application Externally Twice a day 04/28/2024 Active Albuterol Sulfate HFA 108 (90 Base) MCG/ACT 1 puff as needed Inhalation every 4 hrs Active Zenpep 95584-96128 UNIT 1 cap(s) Orally Three times a day Active Keppra XR 500 MG 1 q am, 4 q hs orally Active Omeprazole 40 MG 1 cap(s) orally once a day Active Azelastine HCl 137 MCG/SPRAY 2 spray(s) intranasally 2 times a day Active Fish Oil 1200 MG 1 cap(s) orally once daily Active Vagifem 10 MCG 1 tab(s) intravagina lly 3 times a week Active Gabapentin 100 MG 2 caps orally qid Active Calcium 600 + Minerals 600-200 MG-UNIT 2 tab(s) orally once a day; Duration: 30 day(s) Active Multiple Vitamin - 1 cap(s) orally once a day; Duration: 30 day(s) Active Aspirin 81 81 MG 1 tablet Orally Once a day; Duration: 30 day(s) Active Prolia 60 MG/ML as directed Subcutan eous every 6 months Active Olopatadine HCl 0.1 % 1 drop into affect ed eye Ophthalmic Twice a day Active Encounters Encounter Location Date Provider Diagnosis [facility] [address] [facility] [address] [place], [place] [id number] 03/02/2025 Samy Roberts Allergic rhinitis, unspecified seasonality, unspecified trigger J30.9 Assessments Encounter Date Diagnosis (ICD Code) Assessment Notes Treatment Notes Treatment Clinical Notes Section Notes 03/02/2025 Allergic rhinitis, unspecified seasonality, unspecified trigger (ICD-10 - J30.9) Plan Of Treatment No Information Medications Administered Medication Instructions Date of Administration Dosage Notes allergy 03/02/2025 0.30 mL allergy 03/02/2025 0.30 mL Progress Notes * Stella MONDRAGONB:1950 ( 74 yo F)Acc No.[id number]:03/02/2025 Patient: Fani HENLEY Provider: Samy Roberts M.D. :1950 A ge:74 Y S ex:Female Date:03/02/2025 Address:[address] [place], [place] [id number] Subjective: * Chief Complaints: * 1 . [...] Inhalation every 4 hrs , Taking Zenpep 91444-89952 UNIT Capsule Delayed Release Particles 1 cap(s) Orally Three times a day , Taking Nystatin-Triamcinolone 483281-9.1 UNIT/GM Cream 1 application Externally Twice a [...] MACHINE AND SUPPLIES as directed , Taking Doxycycline Hyclate 100 MG Capsule 1 capsule Orally twice a day , Discontinued levoFLOXacin 500 MG Tablet 1 tablet Orally Once a day , Medication List reviewed and reconciled with the patient Objective: * Vitals: Assessment: * Assessment: 1. A llergic rhinitis, unspecified seasonality, unspecified trigger - J30.9 (Primary) ? Plan: * Treatment: * Therapeutic Injections: allergy : 0.30 mL (Route: Subcutaneous) given by Vicki Singer on subcutaneus (Allergic rhinitis, unspecified seasonality, unspecified trigger) allergy : 0.30 mL (Route: Subcutaneous) given by Vicki Singer on subcutaneus (Allergic rhinitis, unspecified seasonality, unspecified trigger) * Procedure Codes: 9 5117 IMMUNOTHERAPY INJECTIONS * Images: Billing Information: * Visit Code: * Procedure Codes: 03989 IMMUNOTHERAPY INJECTIONS. * Electronic signature of Samy Roberts MD on 05/23/2025 at 12:34 PM EST Sign off status: Pending * Provider: Samy Roberts M.D. Date: 0 03/02/2025 Generated for Rose varela/Aida/Jae on: 07/24/2024 12:34 PM EST
--- OUTSIDE RECORDS SUMMARY | 2025-03-06 09:30 | XMS_ITS ---
[facility] Address [address] [facility] [address] [place] [id number] Care Team Providers Care Direct Chill Caster Name Role Phone Samy Roberts Primary Care Provider [phone] Allergies Allergen (clinical drug ingredient) Drug/Non Drug [...] Active Results Component Value Reference Range Notes Glucose (In-House) Reviewed date:03/06/2025 04:11:20 PM Interpretation: Performing Lab: Notes/Report: blood glucose 233 74 - 106 mg/dL CBC Venipuncture (in house) Reviewed date:03/06/2025 04:11:20 PM Interpretation: Performing Lab: Notes/Report: wbc 23.5 3.5 - 10 lymph 7.2% 15 - 50 mid 2.8% 2 - 15 gran 90.0% 35 - 80 rbc 4.01 3.5 - 5.5 hgb 11.3 11.5 - 16.5 hct 34.2 35 - 55 mcv 85.1 75 - 100 mch 28.2 25 - 35 mchc 33.1 31 - 38 platlet 312 100 - 400 REASON FOR VISIT legs are weak, b/p is low, dizziness Medications Medication SIG (Take, Route, Frequency, Duration) Notes Start Date End Date Status Benzonatate 200 MG 1 capsule as needed Orally Three times a day 03/06/2025 Active CareTouch CPAP & BIPAP Hose as directed 08/18/2021 Active Olmesartan Medoxomil 20 mg take 1 tablet orally once a day; Duration: 90 days Active levoFLOXacin 500 MG 1 tablet Orally Once a day; Duration: 10 day(s) 03/06/2025 Active Rosuvastatin Calcium 10 mg TAKE ONE TABLET BY MOUTH EVERY DAY; Duration: 90 Active Allopurinol 300 mg TAKE ONE TABLET BY M OUTH EVERY DAY; Duration: 90 Active Furosemide 20 MG 1 tablet Orally once daily; Duration: 90 days Active Nystatin-Triamcinolone 017080-1.1 UNIT/GM 1 application Externally Twice a day 04/28/2024 Active Zenpep 89545-63472 UNIT 1 cap(s) Orally Three times a day Active Albuterol Sulfate HFA 108 [...] Once a day; Duration: 30 day(s) Active Vagifem 10 MCG 1 tab(s) intravagina lly 3 times a week Active Prolia 60 MG/ML as directed Subcutan eous every 6 months Active Olopatadine HCl 0.1 % 1 drop into affect ed eye Ophthalmic Twice a day Active Problems Problem Type SNOMED Code ICD Code Onset Dates Problem Status W/U Status Risk Notes Problem Leukocytosis (870695070) Leukocytosis (D72.829) Active confirmed Vital Signs Weight 191.4 lbs 03/06/2025 Blood pressure systolic 100 mm Hg 09/30/20 25 Blood pressure diastolic 60 mm Hg 025 Heart Rate 90 /min 03/06/2025 Height 64.50 in 03/06/2025 BMI 32.34 kg/m2 03/06/2025 Encounters Encounter Location Date Provider Diagnosis [facility] [address] [facility] [address] [place] [id number] 03/06/2025 Samy Roberts Leukocytosis D72.829 ; Cough R05.9 ; Hypotension I95.9 and Hyperglycemia R73.9 Assessments Encounter Date Diagnosis (ICD Code) Assessment Notes Treatment Notes Treatment Clinical Notes Section Notes 03/06/2025 Leukocytosis (ICD-10 - D72.829) Source of infection is not immediately evident. May be a stress reaction. 03/06/2025 Cough (ICD-10 - R05.9) 03/06/2025 Hypotension (ICD-10 - I95.9) She will monitor her blood pressure at home and hold her olmesartan for systolic pressure less than 110 03/06/2025 Hyperglycemia (ICD-10 - R73.9) Plan Of Treatment Medication Medication Name Sig Start Date Stop Date Notes Benzonatate 200 MG 1 capsule as needed Orally Three times a day 03/06/2025 levoFLOXacin 500 MG 1 tablet Orally Once a day; Duration: 10 day(s) 03/06/2025 Treatment Notes Assessment Notes Leukocytosis Source of infection is not immediately evident. May be a stress reaction. Hypotension She will monitor her blood pressure at home and hold her olmesartan for systolic pressure less than 110 Next Appt Details Follow Up: prn, Reason: Progress Notes * JHONCLEMENTE StellaB:1950 ( 74 yo F)Acc No.[id number]:03/06/2025 Progress Notes Patient: Fani HENLEY Provider: Samy Roberts M.D. :1950 A ge:74 Y S ex:Female Date:03/06/2025 Address:[id number] Subjective: * Chief Complaints: * 1 . Legs are weak, b/p is low, dizziness. * HPI: C ardiology: Her brother suddenly 2 days ago and she was busy yesterday with arrangements, etc. but felt fine. After getting up this morning, she initially felt well but then developed nausea, dizziness, and weakness of her legs. She had some associated tightness in her chest but no felicitas chest pain, shortness of breath, or palpitations. She has noticed a mostly dry cough. She has been able to eat normally today. Blood pressure at home was low. * Medical History: S eizure disorder, Seasonal [...] Replacement 03/17/2013, Rt Total Knee Replacement 11/15/2013, [facility]-Lumbar Fusion (L3,L4,L5) - Dr. Gipson 06/2014, Gastric Sleeve 03/26/17, Lt Eye Cataract- Dr. Zaman 02/2019, T11-L5 spinal fusion, Dr. Wen quintero 04/05/2019, Rt Cataract 10/2019, Back Surgery/ Rods placed by Dr. Carver - 07/22/2022. * Hospitalization/Major Diagno stic Procedure: S eizures 1978 ,1995. * Family History: F ather: 64 yrs, [place]. M other: 69 yrs, [place]. P aternal [...] Inhalation every 4 hrs , Taking Zenpep 05583-36674 UNIT Capsule Delayed Release Particles 1 cap(s) Orally Three times a day , Taking Nystatin-Triamcinolone 789451-7.1 UNIT/GM Cream 1 application Externally Twice a [...] MACHINE AND SUPPLIES as directed , Discontinued Doxycycline Hyclate 100 MG Capsule 1 capsule Orally twice a day , Medication List reviewed and reconciled with the patient * Allergies: A moxicillin, FABRICE Inhibitors: cough, Sulindac: chest tightness, Reglan: anxiety, Sulfa Antibiotics, Budesonide, Cefdinir: does not help, amLODIPine: swelling - Side Effects, Nabumetone: Headaches - Side Effects. Objective: * Vitals: W t: 191.4, Temp: 97.6, BP: 100/60, HR: 90, O2 Sat: 94% on ra, Nurse: jaymie, Ht: 64.50, BMI:32.34. * Examination: G eneral Examination: S he comes in by wheelchair accompanied by her . She appears in no distress. HEENT is unremarkable. Neck is supple with no masses or bruits. Lungs are clear to auscultation. Heart is regular with no murmurs. Extremities no edema. Assessment: * Assessment: 1. L eukocytosis - D72.829 (Primary) 2 . C ough - R05.9 3 .?Hypotension - I95.9 4 . H yperglycemia - R73.9 Plan: * Treatment: 2. C ough Start Benzonatate Capsule, 200 MG, 1 capsule as needed, Orally, Three times a day, 24. 3. H ypotension Notes: She will monitor her blood pressure at home and hold her olmesartan for systolic pressure less than 110 * Labs: * L ab: Glucose (In-House) (Collection Date & Time - 03/06/2025) Value Reference Range b lood glucose 233 74 - 106 mg/dL * Sara Thornton 03/06/2025 0 2:58:00 PM EDT > Provider reviewed results while patient in office. ?Lab: CBC Venipuncture (in house) (Collection Date & Time - 03/06/2025)* Value Reference Range w bc 23.5 3.5 - 10 * l ymph 7.2% 15 - 50 * m id 2.8% 2 - 15 * g ran 90.0% 35 - 80 * r bc 4.01 3.5 - 5.5 * h gb 11.3 11.5 - 16.5 * h ct 34.2 35 - 55 * m cv 85.1 75 - 100 * m ch 28.2 25 - 35 * m chc 33.1 31 - 38 * p latlet 312 100 - 400 * Cira Sears 03/06/2025 03 :01:49 PM EDT > Provider reviewed results while patient in office. * Procedure Codes: G 2211 Complex e/[place], [address] CBC WITH AUTO DIFF, 87550 GLUCOSE TEST, 89758 CAPILLARY BLOOD DRAW * Follow Up: p rn * Images: Billing Information: * Visit Code: 59736 Office Visit, Est Pt., Level 3. * Procedure Codes: G2211 Complex e/[place]. [address] CBC WITH AUTO DIFF. 50865 GLUCOSE TEST. 04614 CAPILLARY BLOOD DRAW. * Electronic signature of Saym Roberts MD on 05/23/2025 at 12:35 PM EST Sign off status: Pending * Provider: Samy Roberts M.D. Date: 0 03/06/2025 Generated for Rose varela/Aida/Franitting on: 07/24/2024 12:35 PM EST History and Physical Notes * Examination Category Sub-Category Detail Notes Category Not es General Examination She come s in by wheelchair accompanied by her . She appears in no distress. HEENT is unremarkable. Neck is supple with no masses or bruits. Lungs are clear to auscultation. Heart is regular with no murmurs. Extremities no edema.
--- OUTSIDE RECORDS SUMMARY | 2025-03-20 10:30 | XMS_ITS ---
[facility] Address [address] [place] [id number] Care Team Providers Care Product Development Name Role Phone Samy Roberts Primary Care [...] Active Results Component Value Reference Range Notes Urinalysis - Inhouse Reviewed date:03/21/2025 10:30:53 AM Interpretation: Performing Lab: Notes/Report: Color/Clarity yellow/clear Leuk Neg Nitrite Neg Urobili 3.2 Protein Neg pH 6.0 Blood Neg Sp. Gr. 1.010 Ketone Neg Bili Neg Gluc Neg CBC Fingerstick (in house) Reviewed date:03/21/2025 10:30:53 AM Interpretation: Performing Lab: Notes/Report: wbc 15.2 3.5 - 10 lym 14.2% 15 - 50 mid 4.4% 2 - 15 gran 81.4% 35 - 80 rbc 4.25 3.5 - 5.5 hgb 11.6 11.5 - 16.5 hct 36.4 35 - 55 mcv 85.7 75 - 100 mch 27.3 25 - 35 mchc 31.8 31 - 38 plat 283 100 - 400 P-Culture, Urine Reviewed date:03/23/2025 10:25:06 PM Interpretation:No growth Performing Lab: Notes/Report: Test performed by [employer] [address] [place] [address] , [address], [place] [address] Eddie Rose MD, Screener Operator CLIA: [id number] Specimen Source Urine - Void Culture, Urine See Below Final Report : No growth REASON FOR VISIT LT leg and arm, BP, swelling in ankles Medications Medication SIG (Take, Route, Frequency, Duration) Notes Start Date End Date Status Benzonatate 200 MG 1 capsule as needed Orally Three times a day 03/06/2025 Active Rosuvastatin Calcium 10 mg TAKE ONE TABLET BY MOUTH EVERY DAY; Duration: 90 Active Olmesartan Medoxomil 20 mg take 1 tablet orally once a day; Duration: 90 days Active CareTouch CPAP & BIPAP Hose as directed 08/18/2021 Active Albuterol Sulfate HFA 108 (90 Base) MCG/ACT 1 puff as needed Inhalation every 4 hrs Active Zenpep 87268-66511 UNIT 1 cap(s) Orally Three times a day Active Nystatin-Triamcinolone 722887-2.1 UNIT/GM 1 application Externally Twice a day 04/28/2024 Active Furosemide 20 MG 1 tablet Orally once daily; Duration: 90 days Active Allopurinol 300 mg TAKE ONE TABLET BY M OUTH EVERY DAY; Duration: 90 Active Azelastine HCl 137 MCG/SPRAY 2 spray(s) intranasally 2 times a day Active Fish Oil 1200 MG 1 cap(s) orally once daily Active Keppra XR 500 MG 1 q am, 4 q hs orally Active Omeprazole 40 MG 1 cap(s) orally once a day Active Vagifem 10 MCG 1 tab(s) intravagina lly 3 times a week Active Calcium 600 + Minerals 600-200 MG-UNIT 2 tab(s) orally once a day; Duration: 30 day(s) Active Multiple Vitamin - 1 cap(s) orally once a day; Duration: 30 day(s) Active Gabapentin 100 MG 2 caps orally qid Active Prolia 60 MG/ML as directed Subcutan eous every 6 months Active Aspirin 81 81 MG 1 tablet Orally Once a day; Duration: 30 day(s) Active Olopatadine HCl 0.1 % 1 drop into affect ed eye Ophthalmic Twice a day Active Xiidra 5 % 1 drop into affected eye Ophthalmic Twice a day Active Vital Signs Weight 191.2 lbs 03/20/2025 Blood pressure systolic 126 mm Hg 03/20/20 25 Blood pressure diastolic 62 mm Hg 025 Heart Rate 64 /min 03/20/2025 Height 64.50 in 03/20/2025 BMI 32.31 kg/m2 03/20/2025 Encounters Encounter Location Date Provider Diagnosis [facility] [address] [place], [place] [phone] 03/20/2025 Samy Roberts Leucocytosis D72.829 ; Allergic rhinitis J30.9 ; Abnormal EKG R94.31 and Shoulder pain, left M25.512 Assessments Encounter Date Diagnosis (ICD Code) Assessment Notes Treatment Notes Treatment Clinical Notes Section Notes 03/20/2025 Leucocytosis (ICD-10 - D72.829) She has no obvious source for infection. Recent preop chest x-ray was normal. Will check UA and culture 03/20/2025 Allergic rhinitis (ICD-10 - J30.9) 03/20/2025 Abnormal EKG (ICD-10 - R94.31) Concur with cardiology consultation 03/20/2025 Shoulder pain, left (ICD-10 - M25.512) Continue working with therapy. If symptoms persist, may need advanced imaging Plan Of Treatment Treatment Notes Assessment Notes Leucocytosis She has no obvious s ource for infection. Recent preop chest x-ray was normal. Will check UA and culture Abnormal EKG Concur with cardiolo gy consultation Shoulder pain, left Continue working wit h therapy. If symptoms persist, may need advanced imaging Next Appt Details Follow Up: 3 Months, Reason: Medications Administered Medication Instructions Date of Administration Dosage Notes allergy 03/20/2025 0.30 mL mix DP: RA allergy 03/20/2025 0.30 mL mix RON: LA Progress Notes * Ana MONDRAGONAlexB:1950 ( 74 yo F)Acc No.[id number]:03/20/2025 Progress Notes Patient: Fani HENLEY Provider: Samy Roberts M.D. :1950 A ge:74 Y S ex:Female Date:03/20/2025 Address:[id number] Subjective: * Chief Complaints: * 1 . LT leg and arm, BP, swelling in ankles. * HPI: S houlder/Upper arm: She fell on 03/05/2025 and scraped her left forearm. Since then she has had ongoing pain in her left shoulder and upper arm. She has been working with her physical therapist who has been out of town for the past couple weeks but is to return this Wednesday. C ardiology: She brings in a diary of her blood pressure readings which have been more consistently normal. She has only had one low systolic reading of 102. She had recent preop workup for Dr. Martinez and apparently had an abnormal EKG and is scheduled to see cardiology this week. H ematology: Part of her preop labs showed a CBC with an elevated white count of 15,000. This was actually improved from her CBC 2 weeks ago with a 23,000 white count. She has a residual dry cough since completing her antibiotics but otherwise no respiratory symptoms. No GI or symptoms. * ROS: D ERMATOLOGY: no R soto. [...] Replacement 03/17/2013, Rt Total Knee Replacement 11/15/2013, [facility]-Lumbar Fusion (L3,L4,L5) - Dr. Gipson 06/2014, Gastric Sleeve 03/26/17, Lt Eye Cataract- Dr. Zaman 02/2019, T11-L5 spinal fusion, Dr. Wen quintero 04/05/2019, Rt Cataract 10/2019, Back Surgery/ Rods placed by Dr. Carver - 07/22/2022. * Hospitalization/Major Diagno stic Procedure: S vijay 1978 ,1995. * Family History: F ather: 64 yrs, [place]. M other: 69 yrs, [place]. P aternal [...] ouside US: no. * Medications: T aking Xiidra 5 % Solution 1 drop into affected eye Ophthalmic Twice a day , Taking Olopatadine HCl 0.1 % Solution 1 drop [...] Inhalation every 4 hrs , Taking Zenpep 38789-78339 UNIT Capsule Delayed Release Particles 1 cap(s) Orally Three times a day , Taking Nystatin-Triamcinolone 970312-3.1 UNIT/GM Cream 1 application Externally Twice a [...] MACHINE AND SUPPLIES as directed , Taking Benzonatate 200 MG Capsule 1 capsule as needed Orally Three times a day , Discontinued levoFLOXacin 500 MG Tablet 1 tablet Orally Once a day , Medication List reviewed and reconciled with the patient * Allergies: A moxicillin, FABRICE Inhibitors: cough, Sulindac: chest tightness, Reglan: anxiety, Sulfa Antibiotics, Budesonide, Cefdinir: does not help, amLODIPine: swelling - Side Effects, Nabumetone: Headaches - Side Effects. Objective: * Vitals: W t: 191.2, Temp: 97.5, BP: 126/62, HR: 64, Nurse: jaymie, Ht: 64.50, BMI:32.31. * Examination: E NT/Respiratory: General Appearance: N AD. E yes: P ERRLA, sclera clear. E ars: a uditory canals normal bilaterally, TM's WNL. N ose : n ormal, no lesions, nares patent. O ral cavity : n o erythema or exudate seen on pharynx. N luh : n o cervical lymphadenopathy. H eart : R RR, normal S1 S2, no murmurs. L ungs: c lear to auscultation bilaterally. Assessment: * Assessment: 1. L eucocytosis - D72.829 (Primary) 2 . A llergic rhinitis - J30.9 ? 3 . A bnormal EKG - R94.31 4 . S houlder pain, left - M25.512 ? Plan: * Treatment: Value Reference Range C olor/Clarity yellow/clear * L euk Neg * N itrite Neg * U robili 3.2 * P rotein Neg * p H 6.0 * B lood Neg * S p. Gr. 1.010 * K etone Neg * B maria l Neg * G elie Neg * Cira Sears 03/20/2025 0 5:03:08 PM EDT > Provider reviewed results while patient in office. ?LAB: P-Culture, Urine (Collection Date & Time - 03/21/2025 09:18 AM)?No growth* Value Reference Range C ulture, Urine See Below - * S pecimen Source Urine - Void - * Samy Robrets 03/23/2025 10:24:55 PM EDT > reviewed Notes: She has no obvious source for infection. Recent preop chest x-ray was normal. Will check UA and culture??2.?Abnormal EKG? Notes: Concur with cardiology consultation??3.?Shoulder pain, left? Notes: Continue working with therapy. If symptoms persist, may need advanced imaging?? * Therapeutic Injections: allergy : 0.30 mL (Route: Subcutaneous) given by Sara Thornton , EPE on right deltoid (Allergic rhinitis) allergy : 0.30 mL (Route: Subcutaneous) given by Sara Thornton , EPE on left deltoid (Allergic rhinitis) * Labs: * L ab: CBC Fingerstick (in house) (Collection Date & Time - 03/20/2025) Value Reference Range w bc 15.2 3.5 - 10 * l ym 14.2% 15 - 50 * m id 4.4% 2 - 15 * g ran 81.4% 35 - 80 * r bc 4.25 3.5 - 5.5 * h gb 11.6 11.5 - 16.5 * h ct 36.4 35 - 55 * m cv 85.7 75 - 100 * m ch 27.3 25 - 35 * m chc 31.8 31 - 38 * p lat 283 100 - 400 * RenuTaliastephanie Dodd 03/20/2025 0 4:23:41 PM EDT > Provider reviewed results while patient in office. * Procedure Codes: G 2211 Complex e/[place], [address] CAPILLARY BLOOD DRAW, 75771 CBC WITH AUTO DIFF, 16284 Urinalysis, no micro, 1036F TOBACCO NON-USER, 3074F SYST BP LT 130 MM HG, 3078F DIAST BP < 80 MM HG * Follow Up: 3 Months * Images: Billing Information: * Visit Code: 34128 Office Visit, Est Pt., Level 4. * Procedure Codes: G2211 Complex e/[place]. [address] CAPILLARY BLOOD DRAW. 23107 CBC WITH AUTO DIFF. 66326 Urinalysis, no micro. 1036F TOBACCO NON-USER. 3074F SYST BP LT 130 MM HG. 3078F DIAST BP < 80 MM HG. * Electronic signature of Samy Roberts MD on 05/23/2025 at 12:35 PM EST Sign off status: Pending * Provider: Samy Roberts M.D. Date: Generated for Rose varela/Aida/Jae on: 07/24/2024 12:35 PM EST History and Physical Notes * HPI (History of Present Illness) Category Sub-Category Detail Notes Category Not es Cardiology She had recent preop workup for Dr. Martinez and apparently had an abnormal EKG and is scheduled to see cardiology this week. Hematology She has a resid ual dry cough since completing her antibiotics but otherwise no respiratory symptoms. No GI or symptoms. Examination Category Sub-Category Detail Notes Category Not es ENT/Respiratory Oral cavity : no erythema or exudate s een on pharynx Ears: auditory canals norm al bilaterally, TM's WNL Neck : no cervical lymphade nopathy Heart : RRR, normal S1 S2, n o murmurs Lungs: clear to auscultatio n bilaterally General Appearance: NAD Nose : normal, no lesions, nares patent Eyes: PERRLA, sclera clear
--- OUTSIDE RECORDS SUMMARY | 2025-03-28 10:00 | XMS_ITS | Encounter Summary ---
Author Organization [facility] Address [address] [place] [address] Care Team Providers Care Field Hockey Coach Name Role Phone Gary Roberts MD Primary Care Provider +1- [phone] Reason for Referral * Consultation (Routine) - Authorized Specialty Diagnoses / Procedures Referred By Contac t Referred To Contact Diagnoses Age-related osteoporosis without current pathological fracture Eric Barrientos MD [address] [place] [address] Phone: tel: fax: Referral ID Status Reason Start Date Expiration Date V isits Requested Visits Authorized [id number] Authorized 05/15/2025 11/14/2026 1 1 Reason for Visit * Reason Comments Follow-up Osteoporosis Encounter Details Date Type Department Care Team (Latest Contact Info) Description 03/28/2025 11:00 AM EDT Pharmacist Visit [facility] [address], [address] [place] [address] Chapo Santoro, PharmD [address] [place] [address] Age-related osteoporosis without current pathological [...] drink first t figueroa in the morning (EYE-BUSINESS SERVICES SALES REPRESENTATIVE) to steady your nerves or to [...] pleasure in doing things Not at all 03/29/2025 10:33 AM EDT Jose Anne Feeling down, depressed, or hopeless Not at all 03/29/2025 10:33 AM EDT Jose Anne Patient Health Questionnaire -2 Score 0 03/29/2025 10:33 AM EDT Jose Anne * How difficult have these problems made it for you to do your work, take care of things at home, or get along with other people? Answer Date of Assessment Author Not difficult at all 03/29/2025 10:33 AM EDT Teresa Duval documented as of this encounter Miscellaneous Notes * Patient Instructions - Chapo Santoro PharmD - 03/28/2025 11:00 AM EDT Prolia now. Labs 2 weeks after dose to check calcium. Follow up in 7 months with labs and DXA with provider * Addendum Note - Chapo Santoro PharmD - 03/28/2025 11:00 AM EDTAddended by: CHAPO SANTORO on: 05/15/2025 12:42 PM Modules accepted: Orders * Progress Notes - Chapo Santoro PharmD - 03/28/2025 11:00 AM EDT Telehealth Statement Patient Verification Patient identity has been confirmed using name and date of ? Yes Authorizations and Agreements/Telemedicine Consent sent and consent confirmed? Yes Patient Location: Home/Other Patient confirms they are physically located in [place]? Yes If the patient is not physically located in [place], the provider has confirmed with [facility] thatthe provider is authorized to provide services in patient's stated location? N/A Provider Location: [facility] facility Audio and video or audio only? Audio only Total visit time: 20 minutes HPI: Fani Mondragon is a 74 y.o. female with a past medical history of osteoporosis. Fani Mondragon presents to [facility] for evaluation of Denosumab (Prolia) therapy. [...] Pharmacist Nephrology, [facility] Clinic [address] [place] [address] [1] Current Outpatient Medications Medication Sig Dispense [...] time each day at the same time. Nkfxgxf-Osenidkge-Lyleuxs D (CALCIUM 1200+D3 PO) Take 1 tablet [...] Take 1 capsule by mouth daily. pancrelipase, Fyu-Cphf-Uwbk, (Zenpep) 21326-85435 units capsule delayed-release particles capsule 3(three) times [...] documented in the note. Eric Barrientos MD * Progress Notes - Chapo Santoro PharmD - 03/28/2025 11:00 AM EDT Addendum 05/15/25: After visit, patient has dealt with cellulitis that required hospital admission. She remains on antibiotics and is undergoing imaging to further workup infection. Given this, we will change plan to Reclast. Dr. Barrientos is agreeable. We will also change request for follow up and push to 1 year with labsand DXA. Patient expressed understanding of plan outlined above, encouraged to call clinic with anyquestions or concerns. Chap[facility] Santoro PharmD, [facility] Clinical Pharmacist [facility] Clinic [address] [place] [address] documented in this encounter Plan of Treatment Upcoming Encounters Date Type Department Care Team (Late st Contact Info) Description 03/21/2026 11:40 AM EDT Office Visit [facility] Nephrology, Bone & Mineral Metabolism [address], [address] [place] [address] Edinson Reyes MD [address] [place] [address] 05/28/2026 11:20 AM EST Appointment [facility] Bone & Mineral Metabolism [address] [facility], [address] [place] [address] 05/28/2026 11:40 AM EST Office Visit [facility] Bone & Mineral Metabolism [address], [address] [place] [address] Eric Barrientos MD [address] [place] [address] Scheduled Orders Name Type Priority Associated Diagnoses Orde r Schedule Vitamin D 25 Hydroxy Lab Routine Age-related osteoporosis without current pathological fracture Expected: 05/15/2026 (Approximate), Expires: 05/15/2026 Renal Function Panel, Plasma Lab Routine Age-related osteoporosis without current pathological fracture Expected: 05/15/2026 (Approximate), Expires: 05/15/2026 Osteocalcin by ECIA Lab Routine Age-related osteoporosis without current pathological fracture Expected: 05/15/2026 (Approximate), Expires: 05/15/2026 N telopeptide, cross-linked, serum Lab Routine Age-related osteoporosis without current pathological fracture Expected: 05/15/2026 (Approximate), Expires: 05/15/2026 C-Telopeptide Lab Routine Age-related osteoporosis without current pathological fracture Expected: 05/15/2026 (Approximate), Expires: 05/15/2026 Bone Specific Alkaline Phosphatase Lab Routine Age-related osteoporosis without current pathological fracture Expected: 05/15/2026 (Approximate), Expires: 11/13/2026 Dexa Bone Density Imaging Routine Age-related osteoporosis without current pathological fracture Expected: 05/15/2026 (Approximate), Expires: 11/16/2026 Scheduled Referrals Name Type Priority Associated Diagnoses Orde r Schedule Follow Up Bone Mineral Metabolism Outpatient Referral Routine Age-related osteoporosis without current pathological fracture Expected: 05/15/2026 (Approximate), Expires: 06/15/2026 documented as of this encounter Visit Diagnoses [...] documented as of this encounter Care Teams Field Hockey Coach Relationship Specialty Start Date End Date Gary Roberts MD [address] [place] [address] PCP - General 10/18/20 documented as of this encounter
--- OUTSIDE RECORDS SUMMARY | 2025-03-29 09:40 | XMS_ITS | Encounter Summary ---
Author Organization [facility] Address [address] [place] [address] Care Team Providers Care Platform Consultant Name Role Phone Gary Roberts MD Primary Care Provider [phone]- [phone] Reason for Referral * Consultation (Routine) - Authorized Specialty Diagnoses / Procedures Referred By Contac t Referred To Contact Diagnoses Stage 3a chronic kidney disease (CMS/HCC) Edinson Reyes MD [address] [place] [address] Phone: tel: fax: Referral ID Status Reason Start Date Expiration Date V isits Requested Visits Authorized [id number] Authorized 03/29/2025 09/28/2026 1 1 Reason for Visit * Reason Comments Follow-up Encounter Details Date Type Department Care Team ([facility] Contact Info) Description 03/29/2025 10:40 AM EDT Office Visit [facility] Nephrology, Bone & Mineral Metabolism [address] [facility] [address], [address] [place] [address] Edinson Reyes MD [address] [place] [address] Acute kidney injury superimposed on [...] drink first t figueroa in the morning (EYE-TERMINAL OPERATIONS MANAGER) to steady your nerves or to [...] 600-200 MG- UNIT tablet Every 24 hours Oxvqwci-Qiyqaijin-Ggfjvnt D (CALCIUM 1200+D3 PO) 1 tablet, Daily [...] hours omeprazole (PRILOSEC) 40 mg, Daily pancrelipase, Cba-Vsrv-Fcqx, (Zenpep) 64727-43[address] units capsule delayed-release particles capsule 3times daily [...] Expiration Date: 03/29/[address] [facility]: Immediate Urinalysis with reflex microscopic (Culture NOT Included) Standing Status: Future Expected Date: 03/29/2026 Expiration Date: 03/29/2026 Release [address] patient in [facility]: Immediate Protein, Random, Urine with Creatinine Standing Status: Future Expected Date: 03/29/2026 Expiration Date: 03/29/2026 Release to patient in [facility]: Immediate Creatinine, Random, Urine Standing Status: Future Expected Date: 03/29/2026 Expiration Date: 03/29/2026 Release [address] patient in [facility]: Immediate CBC W/O Differential Standing Status: Future Expected Date: 03/29/2026 Expiration Date: 03/29/2026 [facility] Cystatin C Standing Status: Future Expected Date: 03/29/2026 Expiration Date: 09/30/2026 Release [address] patient in [facility]: Immediate [1] Follow Up Nephrology Standing Status: [...] 2010 Peripheral neuropathy 06/07/1999 Scoliosis 2018 Seizures ([facility]) 1978 Spinal stenosis 2010 TMJ dysfunction 1994 [...] Description 03/21/2026 11:40 AM EDT Office Visit [facility] Nephrology, Bone & Mineral Metabolism [address] [facility] [facility] [address], [address] [place] [address] Edinson Reyes MD [address] [place] [phone] 05/28/2026 11:20 AM EST Appointment [facility] Bone & Mineral Metabolism [address] [facility] [facility] [address], [address] [place] [address] 05/28/2026 11:40 AM EST Office Visit [facility] Bone & Mineral Metabolism [address] [facility] [facility] [address], [address] [place] [address] Eric Barrientos MD [address] [facility] [address] [place] [phone] Scheduled Orders Name Type Priority Associated Diagnoses Orde r Schedule Renal Function Panel, Plasma Lab Routine Stage 3a chronic kidney disease ([facility]) Expected: 03/29/2026, Expires: 03/29/2026 Urinalysis with reflex microscopic (Culture NOT Included) Lab Routine Stage 3a chronic kidney disease ([facility]) Expected: 03/29/2026, Expires: 03/29/2026 Protein, Random, Urine with Creatinine Lab Routine Stage 3a chronic kidney disease ([facility]) Expected: 03/29/2026, Expires: 03/29/2026 Creatinine, Random, Urine Lab Routine Stage 3a chronic kidney disease ([facility]) Expected: 03/29/2026, Expires: 03/29/2026 CBC W/O Differential Lab Routine Stage 3a chronic kidney disease ([facility]) Expected: 03/29/2026, Expires: 03/29/2026 Cystatin C Lab Routine Stage 3a chronic kidney disease ([facility]) Expected: 03/29/2026 (Approximate), Expires: 09/30/2026 Scheduled Referrals Name Type Priority Associated Diagnoses Order Schedule Follow Up Nephrology Outpatient Referral Routine Stage 3a chronic kidney disease ([facility]) Expected: 03/29/2026 (Approximate), Expires: 04/29/2026 documented as of this encounter Visit Diagnoses Diagnosis Acute kidney injury superimposed on CKD- Primary Stage 3a chronic kidney disease ([facility]) Essential hypertension Unspecified essential hypertension Hyperuricemia Other [...] documented as of this encounter Care Teams Platform Consultant Relationship Specialty Start Date End Date Gary Roberts MD [address] [place] [address] PCP - General 10/18/20 documented as of this encounter
--- OUTSIDE RECORDS SUMMARY | 2025-03-30 05:45 | XMS_ITS ---
[facility] [address] [place] [id number] Care Team Providers Care Dye Operator Name Role Phone Samy Roberts Primary Care Provider REASON FOR VISIT allergy shot Medications Medication SIG (Take, Route, Frequency, Duration) Notes Start Date End Date Status Xiidra 5 % 1 drop into affected eye Ophthalmic Twice a day Active Prolia 60 MG/ML as directed Subcutan eous every 6 months Active Olopatadine HCl 0.1 % 1 drop into affect ed eye Ophthalmic Twice a day Active Calcium 600 + Minerals 600-200 MG-UNIT 2 tab(s) orally once a day; Duration: 30 day(s) Active Aspirin 81 81 MG 1 tablet Orally Once a day; Duration: 30 day(s) Active Benzonatate 200 MG 1 capsule as needed [...] once a day; Duration: 90 days Active Omeprazole 40 MG 1 cap(s) orally once a day Active Zenpep 53403-93319 UNIT 1 cap(s) Orally Three times a day Active Albuterol Sulfate HFA 108 (90 Base) MCG/ACT 1 puff as needed Inhalation every 4 hrs Active Furosemide 20 MG 1 tablet Orally once daily; Duration: 90 days Active Nystatin-Triamcinolone 361391-2.1 UNIT/GM 1 application Externally Twice a day 04/28/2024 Active Keppra XR 500 MG 1 q [...] Active Encounters Encounter Location Date Provider Diagnosis [facility] [address] [facility] [address] [place] [id number] 03/30/2025 Samy Roberts Allergic rhinitis du e to other allergic trigger, unspecified seasonality J30.89 Assessments Encounter Date Diagnosis (ICD Code) Assessment Notes Treatment Notes Treatment Clinical Notes Section Notes 03/30/2025 Allergic rhinitis due to other allergic trigger, unspecified seasonality (ICD-10 - J30.89) Plan Of Treatment No Information Medications Administered Medication Instructions Date of Administration Dosage Notes allergy 03/30/2025 0.40 RIght Arm mix 2 allergy 03/30/2025 0.40 Left Arm Mix 1 Progress Notes * Ana MONDRAGONAlexB:1950 ( 74 yo F)Acc No.[id number]:03/30/2025 Patient: Fani HENLEY Provider: Samy Roberts M.D. :1950 A ge:74 Y S ex:Female Date:03/30/2025 Address:[address] [place], [place] [id number] Subjective: * Chief Complaints: * 1 . Allergy shot. * Medical History: * Medications: T aking Xiidra 5 % [...] Inhalation every 4 hrs , Taking Zenpep 87028-82555 UNIT Capsule Delayed Release Particles 1 cap(s) Orally Three times a day , Taking Nystatin-Triamcinolone 162124-8.1 UNIT/GM Cream 1 application Externally Twice a [...] needed Orally Three times a day , Medication List reviewed and reconciled with the patient Objective: * Vitals: Assessment: * Assessment: 1. A llergic rhinitis due to other allergic trigger, unspecified seasonality - J30.89 (Primary)? Plan: * Treatment: * Therapeutic Injections: allergy : 0.40 (Route: Subcutaneous) given by Cristina Daigle on right deltoid (Allergic rhinitis due to other allergic trigger, unspecified seasonality) allergy : 0.40 (Route: Subcutaneous) given by Cristina Daigle on left deltoid (Allergic rhinitis due to other allergic trigger, unspecified seasonality) * Procedure Codes: 9 5117 IMMUNOTHERAPY INJECTIONS * Images: Billing Information: * Visit Code: * Procedure Codes: 50768 IMMUNOTHERAPY INJECTIONS. * Electronic signature of Samy Roberts MD on 05/23/2025 at 12:34 PM EST Sign off status: Pending * Provider: Samy Roberts M.D. Date: Generated for Rose varela/Aida/Jae on: 07/24/2024 12:34 PM EST
--- OUTSIDE RECORDS SUMMARY | 2025-04-03 09:30 | XMS_ITS ---
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 Samy Roberts Primary Care [...] Unknown Drug Allergy Active REASON FOR VISIT follow up on fall Medications Medication SIG (Take, Route, Frequency, Duration) Notes Start Date End Date Status Benzonatate 200 MG 1 capsule as needed Orally Three times a day 03/06/2025 Active Olmesartan Medoxomil 20 mg take 1 tablet orally once a day; Duration: 90 days Active CareTouch CPAP & BIPAP Hose as directed 08/18/2021 Active Allopurinol 300 mg TAKE ONE TABLET BY M OUTH EVERY DAY; Duration: 90 Active Rosuvastatin Calcium 10 mg TAKE ONE TABL ET BY MOUTH EVERY DAY; Duration: 90 Active Omeprazole 40 MG 1 cap(s) orally once a day Active Albuterol Sulfate HFA 108 (90 Base) MCG/ACT 1 puff as needed Inhalation every 4 hrs Active Zenpep 04075-38133 UNIT 1 cap(s) Orally Three times a day Active Nystatin-Triamcinolone 098207-0.1 UNIT/GM 1 application Externally Twice a day 04/28/2024 Active Furosemide 20 MG 1 tablet Orally once daily; Duration: 90 days Active Fish Oil 1200 MG 1 cap(s) orally once daily Active Keppra XR 500 MG 1 q am, 4 q hs orally Active Vagifem 10 MCG 1 tab(s) intravagina lly 3 times a week Active Azelastine HCl 137 MCG/SPRAY 2 spray(s) intranasally 2 times a day Active Gabapentin 100 MG 2 caps orally qid Active Olopatadine HCl 0.1 % 1 drop into affect ed eye Ophthalmic Twice a day Active Prolia 60 MG/ML as directed Subcutan eous every 6 months Active Multiple Vitamin - 1 cap(s) orally once a day; Duration: 30 day(s) Active Aspirin 81 81 MG 1 tablet Orally Once a day; Duration: 30 day(s) Active Calcium 600 + Minerals 600-200 MG-UNIT 2 tab(s) orally once a day; Duration: 30 day(s) Active Cyclobenzaprine HCl 5 MG 1 tab Orally twice a day 04/03/2025 Active Xiidra 5 % 1 drop into affected eye Ophthalmic Twice a day Active Problems Problem Type SNOMED Code ICD Code Onset Dates Problem Status W/U Status Risk Notes Problem Coccydynia (54602401) Coccydynia (M53.3) Active confirmed Vital Signs Weight 188 lbs 04/03/2025 Blood pressure systolic 122 mm Hg 04/03/20 25 Blood pressure diastolic 70 mm Hg 025 Heart Rate 99 /min 04/03/2025 Height 64.50 in 04/03/2025 BMI 31.77 kg/m2 04/03/2025 Encounters Encounter Location Date Provider Diagnosis [facility] [address] [place], [place] [id number] 04/03/2025 R Broderick Roberts Fall W19.XXXA ; Coccydynia M53.3 and Allergic rhinitis J30.9 Assessments Encounter Date Diagnosis (ICD Code) Assessment Notes Treatment Notes Treatment Clinical Notes Section Notes 04/03/2025 Fall (ICD-10 - W19.XXXA) 04/03/2025 Coccydynia (ICD-10 - M53.3) Alternate heat and ice 04/03/2025 Allergic rhinitis (ICD-10 - J30.9) Plan Of Treatment Medication Medication Name Sig Start Date Stop Date Notes Cyclobenzaprine HCl 5 MG 1 tab Orally twice a day 04/03/20 25 Treatment Notes Assessment Notes Coccydynia Alternate heat and i ce Next Appt Details Follow Up: prn, Reason: Medications Administered Medication Instructions Date of Administration Dosage Notes allergy 04/03/2025 0.4 mL mix DP- RA allergy 04/03/2025 0.4 mL mix RON- LA Progress Notes * Ana MONDRAGONaDOB:1950 ( 74 yo F)Acc No.[id number]:04/03/2025 Progress Notes Patient: Fani HENLEY Provider: Samy Roberts M.D. :1950 A ge:74 Y S ex:Female Date:04/03/2025 Address:[address] [place], [place] [id number] Subjective: * Chief Complaints: * 1 . Follow up on fall. * HPI: Yousif garcia back: She suffered a minor fall last week when she slipped out of her computer chair and landed on her tailbone. She has had persistent pain directly over the tailbone which has improved slightly in the last few days after taking some Flexeril that she had at home. * ROS: D ERMATOLOGY: no R soto. [...] Replacement 03/17/2013, Rt Total Knee Replacement 11/15/2013, [facility]-Lumbar Fusion (L3,L4,L5) - Dr. Gipson 06/2014, Gastric Sleeve 03/26/17, Lt Eye Cataract- Dr. Zaman 02/2019, T11-L5 spinal fusion, Dr. Wen quintero 04/05/2019, Rt Cataract 10/2019, Back Surgery/ Rods placed by Dr. Carver - 07/22/2022. * Hospitalization/Major Diagno stic Procedure: S vijay 1978 ,1995. * Family History: F ather: 64 yrs, [place]. M other: 69 yrs, [place]. P aternal [...] Inhalation every 4 hrs , Taking Zenpep 91758-[address]645 UNIT Capsule Delayed Release Particles 1 cap(s) Orally Three times a day , Taking Nystatin-Triamcinolone 661196-7.1 UNIT/GM Cream 1 application Externally Twice a [...] Side Effects. Objective: * Vitals: W t: 188, Temp: 97.4, BP: 122/70, HR: 99, O2 Sat: 94% on RA, Nurse: jaymie, Ht: 64.50, BMI:31.77. * Examination: G eneral Examination: M oves slowly from chair to standing position. Decrease in normal lumbar lordosis. She has point tenderness over the coccyx. Assessment: * Assessment: 1. C occydynia - M53.3 (Primary) 2 . F all - W19.XXXA 3 .?Allergic rhinitis - J30.9 Plan: * Treatment: * Therapeutic Injections: allergy : 0.4 mL (Route: Subcutaneous) given by Sara Thornton , EPE on right deltoid (Allergic rhinitis) allergy : 0.4 mL (Route: Subcutaneous) given by Sara Thornton , EPE on left deltoid (Allergic rhinitis) * Procedure Codes: G 2211 Complex e/[place], [address] IMMUNOTHERAPY INJECTIONS, G8783 BP SCR PRFRM RCMDD DEFIND SCR INTVL, G8752 MOST RECENT SYSTOLIC BP < 140MM HG, G8754 MOST RECENT DIASTOLIC BP < 90MM HG, 3074F SYST BP LT 130 MM HG, 3078F DIAST BP < 80 MM HG * Follow Up: p rn * Images: Billing Information: * Visit Code: 19171 Office Visit, Est Pt., Level 3. Modifiers: 25 * Procedure Codes: G2211 Complex e/[place]. [address] IMMUNOTHERAPY INJECTIONS. G8783 BP SCR PRFRM RCMDD DEFIND SCR INTVL. G8752 MOST RECENT SYSTOLIC BP < 140MM HG. G8754 MOST RECENT DIASTOLIC BP < 90MM HG. 3074F SYST BP LT 130 MM HG. 3078F DIAST BP < 80 MM HG. * Electronic signature of Samy Roberts MD on 05/23/2025 at 12:34 PM EST Sign off status: Pending * Provider: Samy Roberts M.D. Date: Generated for Rose varela/Aida/Aliyahsmitting on: 07/24/2024 12:34 PM EST History and Physical Notes * Examination Category Sub-Category Detail Notes Category Not es General Examination Moves sl owly from chair to standing position. Decrease in normal lumbar lordosis. She has point tenderness over the coccyx.
--- OUTSIDE RECORDS SUMMARY | 2025-04-16 05:55 | XMS_ITS ---
Author Organization [facility] Address [address] [facility] [address] [facility] [address] [place] [id number] Care Team Providers Care [employer] Name Role Phone Samy Roberts Primary Care Provider REASON FOR VISIT allergy shots Encounters Encounter Location Date Provider Diagnosis [facility] [address] [facility] [address] [facility] [address] [place] [id number] 04/16/2025 Samy Roberts Seasonal allergies J30.2 Assessments Encounter Date Diagnosis (ICD Code) Assessment Notes Treatment Notes Treatment Clinical Notes Section Notes 04/16/2025 Seasonal allergies (ICD-10 - J30.2) Plan Of Treatment No Information Medications Administered Medication Instructions Date of Administration Dosage Notes allergy 04/16/2025 0.15 mL Vial #1 LA Pt started new vials allergy 04/16/2025 0.15 mL Vial #2 RA Pt started new vial Progress Notes * Ana MONDRAGONaDOB:1950 ( 74 yo F)Acc No.[id number]:04/16/2025 Patient: Fani HENLEY Provider: Samy Roberts M.D. :1950 A ge:74 Y S ex:Female Date:04/16/2025 Address:[id number] Subjective: * Chief Complaints: * 1 . Allergy shots. * Medical History: Objective: * Vitals: Assessment: * Assessment: 1. S easonal allergies - J30.2 (Primary) Plan: * Treatment: * Therapeutic Injections: allergy : 0.15 mL (Route: Subcutaneous) given by Cira Sears on subcutaneus (Seasonal allergies)? allergy : 0.15 mL (Route: Subcutaneous) given by Cira Sears on subcutaneus (Seasonal allergies) * Procedure Codes: 9 5117 IMMUNOTHERAPY INJECTIONS * Images: Billing Information: * Visit Code: * Procedure Codes: 90531 IMMUNOTHERAPY INJECTIONS. * Electronic signature of Samy Roberts MD on 05/23/2025 at 12:35 PM EST Sign off status: Pending * Provider: Samy Roberts M.D. Date: 06/16/2024 Generated for Rose varela/Aida/Franitting on: 07/24/2024 12:35 PM EST
--- OUTSIDE RECORDS SUMMARY | 2025-04-26 06:35 | XMS_ITS ---
Author Organization [facility] Address [address] [facility] [address] [place] [place] [phone] Care Team Providers Care Cytogenetic Technologist Name Role Phone Samy Roberts Primary Care [...] Drug Allergy Active Reason For Referral Reason New onset atrial fib Diagnosis 1 Atrial fibrillation (I48.91) Referral Organization [facility] Referring Provider First Name Samy Villafana Referring Provider Last Name Armando Referring Provider [facility] ctice Referred Provider Laura Ellis Referred Provider Specialty Cardiovascul ar Disease General Notes Lisseth Delgado 2024 12:38:49 PM > faxed to [facility] CardiologySandy Brynn 04/27/2025 10:30:28 AM > 05/08/2025 at 02:30pm Referral Priority Routine Reason Home health eval pos t hospitalization for PT/OT Diagnosis 1 Generalized weakness (R53.1) Referral Organization [facility] Referring Provider First Akshat Villafana Referring Provider Last Name Armando Referring Provider Speciality Family Pra ctice Referred Provider Home, [facility] Referred Provider Specialty Home Health Agency General Notes Lisseth Deglado 2024 12:39:37 PM > [facility] Referral Priority Routine REASON FOR VISIT Hospital f/u , leg infection Medications Medication SIG (Take, Route, Frequency, Duration) Notes Start Date End Date Status Rosuvastatin Calcium 10 mg TAKE ONE TABL [...] 1 cap(s) orally once a day Active Furosemide 20 MG 1 tablet Orally once daily; Duration: 90 days Active Zenpep 25944-59194 UNIT 1 cap(s) Orally Three times a day Active Keppra XR 500 MG 1 q am, 4 q hs orally Active Calcium 600 + Minerals 600-200 MG-UNIT 2 tab(s) orally once a day; Duration: 30 day(s) Active Azelastine HCl 137 MCG/SPRAY 2 spray(s) intranasally 2 times a day Active Vagifem 10 MCG 1 tab(s) intravagina lly 3 times a week Active Gabapentin 100 MG 2 caps orally qid Active Multiple Vitamin - 1 cap(s) orally once a day; Duration: 30 day(s) Active Prolia 60 MG/ML as directed Subcutan eous every 6 months Active Xiidra 5 % 1 drop into affected eye Ophthalmic Twice a day Active Acidophilus Lactobacillus - as directed Active Eliquis 5 MG as directed Orally Active Augmentin 125-31.25 MG/5ML as directed Orally Active Linezolid 600 MG 1 tablet Orally ever y 12 hrs Active Toprol XL 25 MG 1/2 tablet Orally On ce a day Active Problems Problem Type SNOMED Code ICD Code Onset Dates Problem Status W/U Status Risk Notes Problem Atrial fibrillation (21998197) Atrial fibrillation (I48.91) Active confirmed Vital Signs Weight 000 lbs 04/26/2025 Blood pressure systolic 126 mm Hg 04/26/20 25 Blood pressure diastolic 80 mm Hg 025 Heart Rate 65 /min 04/26/2025 Height 64.50 in 04/26/2025 Encounters Encounter Location Date Provider Diagnosis [facility] [address] [place] [phone] 04/26/2025 Samy Roberts Cellulitis L03.90 ; Generalized weakness R53.1 and Atrial fibrillation I48.91 Assessments Encounter Date Diagnosis (ICD Code) Assessment Notes Treatment Notes Treatment Clinical Notes Section Notes 04/26/2025 Cellulitis (ICD-10 - L03.90) 04/26/2025 Generalized weakness (ICD-10 - R53.1) 04/26/2025 Atrial fibrillation (ICD-10 - I48.91) Plan Of Treatment Medication Medication Name Sig Start Date Stop Date Notes Eliquis 5 MG as directed Orally Augmentin 125-31.25 MG/5ML as directed Orally Linezolid 600 MG 1 tablet Orally every 12 hrs Toprol XL 25 MG 1/2 tablet Orally Once a day Referrals Referral Date Details 04/26/2025 04/26/2025, New onse t atrial fib, Laura Daaboul 04/26/2025 04/26/2025, [facility], Health Home Next Appt Details Follow Up: after consultatio n, Reason: Progress Notes * Ana CARTERaDOB:1950 ( 74 yo F)Acc No.[id number]:04/26/2025 Progress Notes Patient: Fani HENLEY Provider: Samy Roberts M.D. :1950 A ge:74 Y S ex:Female Date:04/26/2025 Address:[address] [place] [address] [facility] Subjective: * Chief Complaints: * 1 . Hospital f/u , leg infection. * HPI: H PI: Fani comes in for follow-up on recent hospital admission. She was traveling in [facility] about a week ago when she developed a febrile illness and altered mental status. Her took her to a local hospital where she was admitted and treated for cellulitis of the left leg and sepsis. She also had intermittent bouts of atrial fibrillation with RVR during the admission. There is a bump in her cardiac enzymes that was felt to be due to demand ischemia. She was treated with IV antibiotics and discharged home 2 days ago. Her mental status has cleared but she remains generally weak and lethargic. Her is having to help her with transfers. She has had no further fevers. No chest pain or palpitations. * ROS: D ERMATOLOGY: no R soto. [...] Replacement 03/17/2013, Rt Total Knee Replacement 11/15/2013, [facility] (L3,L4,L5) - Dr. [...] ouside US: no. * Medications: T aking Linezolid 600 MG Tablet 1 tablet Orally every 12 hrs , Taking Toprol XL 25 MG Tablet Extended Release 24 Hour 1/2 tablet Orally Once a day , Taking Eliquis 5 MG Tablet as directed Orally , Taking Augmentin 125-31.25 MG/5ML Suspension Reconstituted as directed Orally , Taking Acidophilus Lactobacillus - Powder as directed , Taking Xiidra 5 % Solution 1 drop into affected eye Ophthalmic Twice a day , Taking Prolia 60 MG/ML Solution Prefilled Syringe as directed Subcutaneous every 6 months , Taking Calcium 600 + Minerals 600-200 [...] intranasally 2 times a day , Taking Keppra XR 500 MG Tablet Extended Release 24 Hour 1 q am, 4 q hs orally , Taking Omeprazole 40 MG Capsule Delayed Release 1 cap(s) orally once a day , Taking Albuterol Sulfate HFA 108 (90 Base) MCG/ACT Aerosol Solution 1 puff as needed Inhalation every 4 hrs , Taking Zenpep 67854-56646 UNIT Capsule Delayed Release Particles 1 cap(s) Orally Three times a day , Taking Furosemide 20 MG Tablet 1 tablet Orally once daily , Taking Allopurinol 300 mg Tablet TAKE ONE TABLET BY MOUTH EVERY DAY , Taking Rosuvastatin Calcium 10 mg Tablet TAKE ONE TABLET BY MOUTH EVERY DAY , Taking CareTouch CPAP & BIPAP Hose MACHINE AND SUPPLIES as directed , Discontinued Benzonatate 200 MG Capsule 1 capsule as needed Orally Three times a day , Discontinued Olopatadine HCl 0.1 % Solution 1 drop into affected eye Ophthalmic Twice a day , Discontinued Aspirin 81 81 MG Tablet Delayed Release 1 tablet Orally Once a day , Discontinued Fish Oil 1200 MG Capsule 1 cap(s) orally once daily , Discontinued Nystatin-Triamcinolone 289317-9.1 UNIT/GM Cream 1 application Externally Twice a day , Discontinued Olmesartan Medoxomil 20 mg Tablet take 1 tablet orally once a day , Discontinued Cyclobenzaprine HCl 5 MG Tablet 1 tab Orally twice a day , Medication List reviewed and reconciled with the patient * Allergies: A moxicillin, FABRICE Inhibitors: cough, Sulindac: chest tightness, Reglan: anxiety, Sulfa Antibiotics, Budesonide, Cefdinir: does not help, amLODIPine: swelling - Side Effects, Nabumetone: Headaches - Side Effects. Objective: * Vitals: W t: 000, Temp: 97.5, BP: 126/80, HR: 65, O2 Sat: 96% on RA, Nurse: jaymie, Ht: 64.50. * Examination: G eneral Examination: S he comes in via wheelchair accompanied by her . She is alert and oriented. She appears weak but no distress. Lungs are clear to auscultation. Heart is regular. Abdomen soft and nondistended with no tenderness. Extremities show no edema. Distal left lower extremity is involved with cellulitis circumferentially with weeping bullous lesions. No purulent drainage. There is no erythema of the foot. Surgical wound is healing well with no redness or induration. Assessment: * Assessment: 1. C ellulitis - L03.90 (Primary) 2 . G eneralized weakness - R53.1 ? 3 . A trial fibrillation - I48.91 Plan: * Treatment: 2. G eneralized weakness Referral To:Health Home Home Health Agency Reason:Home health eval post hospitalization for PT/OT 3. A trial fibrillation Continue Eliquis Tablet, 5 MG, as directed, Orally; C ontinue Toprol XL Tablet Extended Release 24 Hour, 25 MG, 1/2 tablet, Orally, Once a day. ? Referral To:[facility] Reason:New onset atrial fib * Procedure Codes: G 2211 Complex e/m visit add on, G8783 BP SCR PRFRM RCMDD DEFIND SCR INTVL, G8752 MOST RECENT SYSTOLIC BP < 140MM HG, G8754 MOST RECENT DIASTOLIC BP < 90MM HG, 3074F SYST BP LT 130 MM HG, 3079F DIAST BP 80-89 MM HG * Follow Up: a fter consultation * Images: Billing Information: * Visit Code: 44760 Office Visit, Est Pt., Level 4. * Procedure Codes: G2211 Complex e/m visit add on. G8783 BP SCR PRFRM RCMDD DEFIND SCR INTVL. G8752 MOST RECENT SYSTOLIC BP < 140MM HG. G8754 MOST RECENT DIASTOLIC BP < 90MM HG. 3074F SYST BP LT 130 MM HG. 3079F DIAST BP 80-89 MM HG. * Electronic signature of Samy Roberts MD on 05/23/2025 at 12:33 PM EST Sign off status: Pending * Provider: Samy Roberts M.D. Date: 06/26/2024 Generated for Rose varela/Aida/Franitting on: 07/24/2024 12:33 PM EST History and Physical Notes * Examination Category Sub-Category Detail Notes Category Not es General Examination She come s in via wheelchair accompanied by her . She is alert and oriented. She appears weak but no distress. Lungs are clear to auscultation. Heart is regular. Abdomen soft and nondistended with no tenderness. Extremities show no edema. Distal left lower extremity is involved with cellulitis circumferentially with weeping bullous lesions. No purulent drainage. There is no erythema of the foot. Surgical wound is healing well with no redness or induration. Consultation Request Notes Referral Date Referring Provider Referred Provider Not es 04/26/2025 Samy Roberts Yaz New onset atrial fib 04/26/2025 Samy Roberts [place], [facility] Home healt h eval post hospitalization for PT/OT
--- OUTSIDE RECORDS SUMMARY | 2025-05-08 05:00 | XMS_ITS ---
Author Organization [facility] Address [address] [facility] [address] [place] [id number] Care Team Providers Care Porcelain Enameling Supervisor Name Role Phone Samy Roberts Primary Care Provider [phone] Allergies Allergen (clinical drug ingredient) Drug/Non Drug [...] Unknown Drug Allergy Active REASON FOR VISIT poss yeast inf. and F/U from hospital Medications Medication SIG (Take, Route, Frequency, Duration) Notes Start Date End Date Status Furosemide 20 MG 1 tablet Orally once daily; Duration: 90 days Active Diflucan 150 MG 1 tablet Orally; Duration: 10 day(s) 05/08/2025 Active CareTouch CPAP & BIPAP Hose as directed 08/18/2021 Active Rosuvastatin Calcium 10 mg TAKE ONE TABLET BY MOUTH EVERY DAY; Duration: 90 Active Allopurinol 300 mg TAKE ONE TABLET BY M OUTH EVERY DAY; Duration: 90 Active Zenpep 32061-19006 UNIT 1 cap(s) Orally Three times a [...] Active Acidophilus Lactobacillus - as directed Active Augmentin 125-31.25 MG/5ML as directed Orally Not-Takin g Linezolid 600 MG 1 tablet Orally ever y 12 hrs Not-Taking Doxycycline Hyclate 100 MG 1 capsule Orally Once a day Not-Taking levoFLOXacin 500 MG 1 tablet Orally Once a day Not-Taking Toprol XL 25 MG 1/2 tablet Orally On ce a day Active Eliquis 5 MG as directed Orally Active Vital Signs Weight 000 lbs 05/08/2025 Blood pressure systolic 122 mm Hg 05/08/20 25 Blood pressure diastolic 74 mm Hg 025 Heart Rate 73 /min 05/08/2025 Height 64.50 in 05/08/2025 Encounters Encounter Location Date Provider Diagnosis [facility] [address] [phone] 05/08/2025 R Broderick Roberts Cellulitis L03.90 ; Yeast vaginitis B37.31 ; Generalized weakness R53.1 ; Atrial fibrillation I48.91 and Seasonal allergic rhinitis, unspecified trigger J30.2 Assessments Encounter Date Diagnosis (ICD Code) Assessment Notes Treatment Notes Treatment Clinical Notes Section Notes 05/08/2025 Cellulitis (ICD-10 - L03.90) Continue follow-up with Dr. Hunt 05/08/2025 Yeast vaginitis (ICD-10 - B37.31) 05/08/2025 Generalized weakness (ICD-10 - R53.1) 05/08/2025 Atrial fibrillation (ICD-10 - I48.91) Keep appointment with cardiology today 05/08/2025 Seasonal allergic rhinitis, unspecified trigger (ICD-10 - J30.2) Plan Of Treatment Medication Medication Name Sig Start Date Stop Date Notes Diflucan 150 MG 1 tablet Orally; Duration: 10 day(s) 05/08 Toprol XL 25 MG 1/2 tablet Orally Once a day Eliquis 5 MG as directed Orally Treatment Notes Assessment Notes Cellulitis Continue follow-up w bart Hunt Atrial fibrillation Keep appointment wit h cardiology today Next Appt Details Follow Up: 4 Weeks, Reason: Medications Administered Medication Instructions Date of Administration Dosage Notes allergy 05/08/2025 .20 mL Vial 1 allergy 05/08/2025 .20 mL Vial 2 Progress Notes * Ana CARTERaDOB:1950 ( 74 yo F)Acc No.[id number]:05/08/2025 Patient: Fani HENLEY Provider: Samy Roberts M.D. :1950 A ge:74 Y S ex:Female Date:05/08/2025 Address:[address] [place], [place] [id number] Subjective: * Chief Complaints: * 1 . poss yeast inf. and F/U from hospital. * HPI: H PI: She comes in for follow-up on her cellulitis. She has completed her course of antibiotics. Since her last visit, she also had follow-up with Dr. Hunt who debrided an area on the left lower leg and applied an Unna boot for about 5 days. Fani notes the swelling has gone down and her pain is improved. She is getting around a little easier at home. She has not yet heard from home health regarding starting her PT and OT. U rology: Pt states she has some vaginal itching likely from her course of antibiotics. C ardiology: She is scheduled to see cardiology later today regarding her new onset of atrial fibrillation. * ROS: D ERMATOLOGY: no R soto. [...] Replacement 03/17/2013, Rt Total Knee Replacement 11/15/2013, [facility]-Lumbar Fusion (L3,L4,L5) - Dr. Gipson 06/2014, [...] . * Social History: C URRENT TOBACCO USE: No S moking Status: Patient does NOT smoke. [...] ouside US: no. * Medications: T aking Acidophilus Lactobacillus - Powder as directed , [...] Inhalation every 4 hrs , Taking Zenpep 69075-92720 UNIT Capsule Delayed Release Particles 1 cap(s) [...] MACHINE AND SUPPLIES as directed , Taking Toprol XL 25 MG Tablet Extended Release 24 Hour 1/2 tablet Orally Once a day , Taking Eliquis 5 MG Tablet as directed Orally twice a day , Not-Taking levoFLOXacin 500 MG Tablet 1 tablet Orally Once a day , Not-Taking Doxycycline Hyclate 100 MG Capsule 1 capsule Orally Once a day , Not-Taking Linezolid 600 MG Tablet 1 tablet Orally every 12 hrs , Not-Taking Augmentin 125-31.25 MG/5ML Suspension Reconstituted as directed Orally , Medication List reviewed and reconciled with the patient * Allergies: A moxicillin, FABRICE Inhibitors: cough, Sulindac: chest tightness, Reglan: anxiety, Sulfa Antibiotics, Budesonide, Cefdinir: does not help, amLODIPine: swelling - Side Effects, Nabumetone: Headaches - Side Effects. Objective: * Vitals: W t: 000, Temp: 97.9, BP: 122/74, HR: 73, Nurse: SHIRA, Ht: 64.50. * Examination: G eneral Examination: S he comes in by wheelchair accompanied by her . She is alert and oriented. The edema in the left lower leg has completely resolved. There is a dressing in place over the left lateral lower leg. The surrounding erythema has regressed. Assessment: * Assessment: 1. Y east vaginitis - B37.31 (Primary) 2 . C ellulitis - L03.90 ?3. G eneralized weakness - R53.1 4 . A trial fibrillation - I48.91? 5. S easonal allergic rhinitis, unspecified trigger - J30.2 Plan: * Treatment: 2. C sheryl Notes: Continue follow-up with Dr. Hunt 3. A trial fibrillation Continue Eliquis Tablet, 5 MG, as directed, Orally; C ontinue Toprol XL Tablet Extended Release 24 Hour, 25 MG, 1/2 tablet, Orally, Once a day. Notes: Keep appointment with cardiology today * Therapeutic Injections: allergy : .20 mL (Route: Subcutaneous) given by Cristina Daigle on right deltoid (Seasonal allergic rhinitis, unspecified trigger) allergy : .20 mL (Route: Subcutaneous) given by Cristina Daigle on left deltoid (Seasonal allergic rhinitis, unspecified trigger) * Procedure Codes: G 2211 Complex e/[place], [address] IMMUNOTHERAPY INJECTIONS, G8783 BP SCR PRFRM RCMDD DEFIND SCR INTVL, G8752 MOST RECENT SYSTOLIC BP < 140MM HG, G8754 MOST RECENT DIASTOLIC BP < 90MM HG, 3074F SYST BP LT 130 MM HG, 3078F DIAST BP < 80 MM HG * Follow Up: 4 Weeks * Images: Billing Information: * Visit Code: 68696 Office Visit, Est Pt., Level 3. Modifiers: 25 * Procedure Codes: G2211 Complex e/[place]. [address] IMMUNOTHERAPY INJECTIONS. G8783 BP SCR PRFRM RCMDD DEFIND SCR INTVL. G8752 MOST RECENT SYSTOLIC BP < 140MM HG. G8754 MOST RECENT DIASTOLIC BP < 90MM HG. 3074F SYST BP LT 130 MM HG. 3078F DIAST BP < 80 MM HG. * Electronic signature of Samy Roberts MD on 05/23/2025 at 12:34 PM EST Sign off status: Pending * Provider: Samy Roberts M.D. Date: 07/09/2024 Generated for Rose varela/Aida/Jae on: 07/24/2024 12:34 PM EST History and Physical Notes * HPI (History of Present Illness) Category Sub-Category Detail Notes Category Not es Urology Pt states she h as some vaginal itching likely from her course of antibiotics Examination Category Sub-Category Detail Notes Category Not es General Examination She come s in by wheelchair accompanied by her . She is alert and oriented. The edema in the left lower leg has completely resolved. There is a dressing in place over the left lateral lower leg. The surrounding erythema has regressed.
--- NOTE | 2025-05-23 | CA_ITS ---
APPROVED REPORT Exam: Pharmacologic Technologist: Paloma Sandhu Ht: 5 ft 2 in Wt: 179 lbs BSA: 1.82 m2 HR: 65 bpm BP: 136/67 mmHg Indications: New onset of atrial fibrillation, dizziness,abnormal electrocardiogram, rule out ischemia Stress Test Details Test: Lexiscan HR Resting HR: 65 bpm Max Heart Rate (APMHR): 146.226911 bpm Max HR Achieved: 93 bpm Target HR (85% APMHR): 124.464364 bpm % of APMHR: 63.70 Recovery HR: 71 bpm BP Resting BP: 136.0/67.0 mmHg Max BP: 160.0/72.0 mmHg Recovery BP: 133.0/68.0 mmHg ECG Stress ECG Conclusion EKG nondiagnostic- Lexiscan Electronically signed by : Laura Ellis MD 05/25/2025 13:36:24
--- NOTE | 2025-05-23 11:30 | NM_ITS ---
APPROVED REPORT Exam: Nuclear Stress Test Indication: high bp..high cholesterol Patient Location: Outpatient Stress Tech: Paloma Sandhu [place] Tech:Starr Munguia, ARRT, RT (R)(N) Ht: 5 ft 5 in Wt: 179 lbs Bra Size: 40dd HR: 65 bpm BP: 136/67 mmHg BSA: 1.89 m2 TID: 0.91 BMI: 29.7 History: high bp..high cholesterol Procedure: Patient received 0.4 mg of intravenous Lexiscan, resting heart rate 65 bpm, resting blood pressure 136/67 mmHg, with Lexiscan maximum heart rate achieved was 84 bpm which is 85 % of the maximum predicted heart rate and blood pressure was 143/63 mmHg. With Lexiscan, patient denied any complaint of chest pain. Cardiac Stress and Resting SPECT Images: Cardiac Stress and Resting SPECT images were obtained using technetium 99m Myoview 30.3 mCi stress and 10.65 mCi at rest. Resting and stress imaging in supine and prone positions demonstrate a medium-sized, moderate, reversible perfusion defect in the basal to mid lateral LV wall. Gated imaging demonstrates normal global LV systolic function. LVEF is calculated at 53%. Conclusion: Medium-sized, moderate, reversible perfusion defect in the basal to mid lateral LV wall. Gated imaging demonstrates normal global LV systolic function. LVEF is calculated at 53%. Electronically signed by : Laura Ellis MD 05/25/2025 13:29:29
--- OUTSIDE RECORDS SUMMARY | 2025-05-23 12:33 | XMS_ITS | Referral Summary ---
Author Organization [employer] ([place], [place], [place], [place], [place]) Address [address] [place] [address] Care Team Providers Care Linen Sorter Name Role Phone Gary Roberts MD Primary Care Provider +1- [phone] Allergies Active Allergy Reactions Criticality Noted Date [...] Date Delfin rded Speak language other than Lithuanian at home Not on file 06/18/2023 Want [...] Description 12/19/2025 1:00 PM EDT Office Visit [facility] Bariatric Services [address] [facility] [address] [place] [address] Shahida Orellana MD [address] [place] [address] [place] [phone] [facility] MEDICARE ADVANTAGE Care Teams Linen Sorter Relationship Specialty Start Date End Date Gary Roberts MD [address] [place] [address] PCP - General Family Medicine 11/16/22
--- OUTSIDE RECORDS SUMMARY | 2025-05-23 12:33 | XMS_ITS | Clinical Summary ---
Author Organization [employer] ([place], [place], [place], [place], [place]) Address [address] [place] [address] Care Team Providers Care Vice President & General Manager [employer] Name Role Phone Gary Roberts MD Primary Care Provider +1- [phone] Allergies Active Allergy Reactions Criticality Noted Date [...] Date Delfin rded Speak language other than Bangladeshi at home Not on file 06/18/2023 Want [...] Description 12/19/2025 1:00 PM EDT Office Visit [facility] Bariatric Services [address] [facility] [address] [place] [address] Shahida Orellana MD [address] [place] [address] Health Maintenance Due Date Last [...] Pneumococcal 50+ years Completed 04/20/2023, 2016 Insurance [facility] [place] [phone] [facility] MEDICARE ADVANTAGE Care Teams Vice President & General Manager [employer] Relationship Specialty Start Date End Date Gary Roberts MD [address] [place] [address] PCP - General Family Medicine 11/16/22
--- OUTSIDE RECORDS SUMMARY | 2025-05-23 12:35 | XMS_ITS | Encounter Summary ---
Author Organization [facility] Address [address] [place] [address] Care Team Providers Care Merchandising Execution Associate Name Role Phone Gary Roberts MD Primary Care Provider Encounter Details Date Type Department Care Team (Late st Contact Info) Description 04/04/2025 Prior Authorization [facility] MED[facility] GYNECOLOGY [address] [address] Martha Hutchinson MD [address] [place] [address] Social History Tobacco Use Types Packs/Day Years [...] Info) Description 09/17/2025 11:10 AM EDT Appointment [facility] [place] [address] 03/28/2026 11:10 AM EDT Office Visit [facility] MED[facility] GYNECOLOGY [address] [facility] [address] [place] [address] Martha Hutchinson MD [address] [place] [address] documented as of this encounter Visit Diagnoses Not on filedocumented in this encounter Care Teams Merchandising Execution Associate Relationship Specialty Start Date End Date Gary Roberts MD [address] [facility] [address] [facility] [place] [address] PCP - General 11/11/15 documented as of this encounter
--- OUTSIDE RECORDS SUMMARY | 2025-05-23 12:35 | XMS_ITS | Clinical Summary ---
Author Organization [facility] Address [address] [place] [address] Care Team Providers Care Account Associate Name Role Phone Gary Roberts MD Primary Care Provider +1- [phone] Allergies Active Allergy Reactions Criticality Noted Date [...] * request cloth tape only* Medications pancrelipase, Xgl-Heve-Aftl, (Zenpep) [address] units capsule delayed-release particles capsule 3 (three) [...] for pain. 40 tablet 07/25/19 23 Active albuterol 108 (90 Base) MCG/ACT inhaler [...] capsule by mouth daily. 90 capsule 2 04/12/20 25 Active denosumab (Prolia) 60 MG/ML injection Inject 1 mL (60 mg) under the skin 1 (one) time. 025 Discontinued Active Problems Problem Noted Date Diagnosed Date Stage 3a chronic kidney disease 08/25/2024 Fusion of spine of thoracolumbar region 08/09/19 Exocrine pancreatic insufficiency 05/04/2023 Fusion of lumbosacral spine 07/22/2022 Age-related osteoporosis wit hout current pathological fracture 04/23/2022 Seizures 04/15/2022 GERD (gastroesophageal reflux disease) 2 Spondylolisthesis, thoracic region 01/29/2022 Neurogenic claudication 01/29/2022 Overview (01/29/2022): Added automatically from request for surgery [id number] Pseudarthrosis after fusion or arthrodesis 01/29 S/P [...] Type Department Care Team Description 04/26/2025 Telephone [facility] Bone & Mineral Metabolism [address] [place] [address] Chapo Santoro, PharmD 04/12/2025 Orders Only [facility] Bone & Mineral Metabolism [address] , [address] [place] [address] Chapo Santoro, PharmD Age-related osteoporosis without current pathological fracture 04/04/2025 Telephone [facility] [address] [place] [phone] Frida Gallardo RN 03/29/2025 10:40 AM EDT Office Visit [facility] Nephrology, Bone & Mineral Metabolism [address] , [address] [place] [address] Edinson Reyes MD Acute kidney injury superimposed on CKD (Primary Dx); Stage 3a chronic kidney disease (CMS/HCC); Essential hypertension; Hyperuricemia; Chronic kidney disease-mineral and bone disorder; Hypervolemia, unspecified hypervolemia type 03/29/2025 Travel 03/28/2025 11:00 AM EDT Pharmacist Visit [facility] Bone & Mineral Metabolism [address] , [address] [place] [address] Chapo Santoro, PharmD Age-related osteoporosis without current pathological fracture (Primary Dx) 03/28/2025 Travel 03/20/2025 Telephone [facility] Bone & Mineral Metabolism [address], [address] [place] [address] Kalia Sanz 03/13/2025 Telephone [facility] Bone & Mineral Metabolism [address], [address] [place] [address] Kalia Sanz 03/12/2025 Refill [facility] Bone & Mineral Metabolism [address], [address] [place] [address] Eric Barrientos MD Age-related osteoporosis without current pathological fracture 02/26/2025 12:50 PM EDT Office Visit [facility] Sp[facility] [address] [facility], [address] [place] [address] Jaiden Fuentes MD Hip pain, bilateral (Primary Dx) 02/26/2025 12:29 PM EDT - 02/26/2025 11:59 PM EDT Hospital Encounter [facility] Radiology [address] [place] [address] Left knee pain, unspecified chronicity; [...] Yessi Natarajanburn Molony Osteoporosis Father's Sister Yessi Mendoza Molony Rheumatologic disease Father's Sister Yessi Reji M olony Diabetes Maternal Grandmother Joy Mccarthy Rheumatologic disease Maternal Grandmother Joy Rooney oss Stroke Maternal Grandmother Joylashawn Mccarthy Cancer Mother Maria Teresa Carlos Natarajanburn Diabetes Mother Maria Teresa Gonzalez Fabio Mendoza Obesity Mother Maria Teresa Gonzalez Fabio Mendoza Stroke Mother Maria Teresa Gonzalez Fabio Mendoza Vision loss Mother Maria Teresa Carlos Mendoza Arthritis Other 1 Joy Mccarthy Obesity [...] Luis Natarajanburn Alive Father's Brother 2 Gold Natarajanburn Alive Father's Sister Yessi Mendoza Molony Maternal [...] No Comments:Never Used but worked in [employer]. Alcohol Use Standard Drinks/Week Comments [...] drink first t figueroa in the morning (EYE-HAIR DRYER) to steady your nerves or to get [...] Metabolism [address] [facility], [address] [place] [address] Edinson Reyes MD [address] [place] [phone] 05/28/2026 11:20 AM EST Appointment [facility] Bone & Mineral Metabolism [address] [facility], [address] [place] [address] 05/28/2026 11:40 AM EST Office Visit [facility] Bone & Mineral Metabolism [address] [facility], [address] [place] [address] Eric Barrientos MD [address] [place] [address] Health Maintenance Due Date Last Done Comments [facility]-Hepatitis C Screening 1950 [facility]-Medicare Annual Wellness (AWV) 1950 [facility]-/Child/Adol SDOH Screenings 1950 [facility]- SDOH Screenings 1968 [facility]-Adult SDOH Screenings 1968 CT Colonography 12/24/1995 Colonoscopy 12/24/1995 FIT-DNA 12/24/1995 FIT 12/24/1995 FOBT 12/24/1995 Sigmoidoscopy 12/24/1995 [facility]-Colorectal Cancer Screening 12/24/1995 [facility]-Zoster Vaccines (1 of 2) 2000 05/24/2007, 03/29/2007 [facility]-YHUEE-89 Vaccine ( season) 2025 03/11/2022, 03/12/2021, 07/22/2020, [...] 02/26/2025, 11/01/2024, Additional history exists HPV Vaccines (No Doses Required) Completed [facility]-HIB Vaccines Aged Out No longer e ligible based on patient's age to complete this topic [facility]-IPV Vaccines Aged Out No longer e ligible based on patient's age to complete this topic [facility]-Rotavirus Vaccines Aged Out No lo nger eligible based on patient's age to complete this topic Medical Devices Implanted Type Area Metal Gauge Maker Device Identifier Shelf Expiration Date Model / Serial / Lot Chip Bone 40cc - [id number] - [id number] Implanted:Qty: 1 on 07/22/2022 by Pratik Carver MD at [facility] N/A: Spine Lumbar [facility]-[id number] 02/23/2027 PCAN1/2 / [id number] / [id number] Screw 5.5mm Viper Ti Fen Crtcl Polyax 6mm X 30mm - [id number] Implanted:Qty: 8 on 07/22/2022 by Pratik Carver MD at [facility] N/A: Spine Lumbar [employer] -[id number] 07/22/2023 [id number] / / Chip Bone 40cc - [id number] - [id number] Implanted:Qty: 1 on 07/22/2022 by Pratik Carver MD at [facility] N/A: Spine Lumbar [facility]-[id number] 04/21/2027 PCAN1/2 / [id number] / [id number] Graft Vivigen 5cc - [id number] - [id number] Implanted:Qty: 1 on 07/22/2022 by Pratik Carver MD at [facility] N/A: Spine Lumbar [facility]-[id number] 07/01/2023 BL-1500-002 / [id number] / [id number] Screw 5.5mm Viper Ti Fen Crtcl Polyax 5mm X 40mm - [id number] Implanted:Qty: 2 on 07/22/2022 by Pratik Carver MD at [facility] N/A: Spine Lumbar [id number] 07/22/2023 [id number] / / Screw Exp Viper Lg Tit 9x100 - [id number] Implanted:Qty: 1 on 07/22/2022 by Pratik Carver MD at [facility] N/A: Spine Lumbar [employer] LP-[id number] 07/22/2023 [id number] / / Screw 5.5mm Viper Ti Polyax Fullthrd 8mm X 100mm - [id number] Implanted:Qty: 1 on 07/22/2022 by Pratik Carver MD at [facility] N/A: Spine Lumbar [employer] -[id number] 07/22/2023 [id number] / / Single Inner Setscrew - [id number] Implanted:Qty: 23 on 07/22/2022 by Pratik Carver MD at [facility] N/A: Spine Lumbar [employer] -[id number] 07/22/2023 [id number] / / Ap Expedium Ti Precontoured Small 5.5mm - [id number] Implanted:Qty: 2 on 07/22/2022 by Pratik Carver MD at [facility] N/A: Spine Lumbar [employer] -[id number] 07/22/2023 [id number] / / Plate Sfx 5.5 Ti Med Size A5 - [id number] Implanted:Qty: 1 on 07/22/2022 by Pratik Carver MD at [facility] N/A: Spine Lumbar [employer] -[id number] 07/22/2023 [id number] / / Procedures Procedure Name Priority Date/Time Associated Diagnosis Comments XR KNEE RIGHT 1 OR 2 VIEWS Routine 02/26/2025 12:51 PM EDT Pain XR HIPS BILATERAL 2 VIEWS Routine 02/26/2025 12:51 PM EDT Hip pain, bilateral XR KNEE LEFT 1 OR 2 VIEWS Routine 02/26/2025 12:51 PM EDT Left knee pain, unspecified chronicity [place] ARTHROCENTESIS ASPIR&/INJ MAJOR JT/BURSA W/O US Routine [...] no evidence of hardware loosening or failure. Olze-jb-efhqcven right hip osteoarthrosis. CRITICAL RESULT: No. COMMUNICATION: [...] joints posterior fusion hardware is partially visualized. Xpcg-dy-nkdmilev osteoarthrosis of the right hip. Femoral head [...] sacroiliac joints posterior fusionhardware is partially visualized. Qbsw-fc-qpjxayja osteoarthrosis of theright hip. Femoral head is well-seated within the acetabulum. No acutefracture or dislocation.. IMPRESSION: Redemonstration of bilateral total knee arthroplasties in unchangedalignment with no hardware complications. Left total hip arthroplasty in unchanged alignment with no evidence ofhardware loosening or failure. Blns-zs-pzuzbalf right hip osteoarthrosis. CRITICAL RESULT: No. COMMUNICATION: Per this written report. By electronically signing this report, I, the attending physician, attestthat I have personally reviewed the images/data for the aboveexamination(s) and agree with the final edited report. Drafted by Braulio Thurman MD on 02/26/2025 1:10 PM Final report signed by Jaiden Bower on 02/26/2025 3:04 PM Jaiden Fuentes MD IM XR PROCEDURES Final Resul t * XR Knee Right 1 or 2 Views (02/26/2025 12:51 PM EDT) Anatomical Region Laterality Modality Lower Extremities, Knee Right Digital Radiography Impressions 02/26/2025 3:04 PM EDT Redemonstration of bilateral total knee arthroplasties in unchanged alignment with no hardware complications. Left total hip arthroplasty in unchanged alignment with no evidence of hardware loosening or failure. Ojxp-rn-oucpyvls right hip osteoarthrosis. CRITICAL RESULT: No. COMMUNICATION: [...] joints posterior fusion hardware is partially visualized. Luoi-in-xakptwux osteoarthrosis of the right hip. Femoral head [...] sacroiliac joints posterior fusionhardware is partially visualized. Vqap-xi-ohtazkpz osteoarthrosis of theright hip. Femoral head is well-seated within the acetabulum. No acutefracture or dislocation.. IMPRESSION: Redemonstration of bilateral total knee arthroplasties in unchangedalignment with no hardware complications. Left total hip arthroplasty in unchanged alignment with no evidence ofhardware loosening or failure. Cymd-we-refyvbnx right hip osteoarthrosis. CRITICAL RESULT: No. COMMUNICATION: [...] no evidence of hardware loosening or failure. Wdgo-ux-mtcuvclr right hip osteoarthrosis. CRITICAL RESULT: No. COMMUNICATION: [...] joints posterior fusion hardware is partially visualized. Bjri-jw-fbvuqnml osteoarthrosis of the right hip. Femoral head [...] sacroiliac joints posterior fusionhardware is partially visualized. Hlwa-dx-fzqcqkuh osteoarthrosis of theright hip. Femoral head is well-seated within the acetabulum. No acutefracture or dislocation.. IMPRESSION: Redemonstration of bilateral total knee arthroplasties in unchangedalignment with no hardware complications. Left total hip arthroplasty in unchanged alignment with no evidence ofhardware loosening or failure. Zwrh-hg-uchsjtux right hip osteoarthrosis. CRITICAL RESULT: No. COMMUNICATION: [...] IMG XR PROCEDURES Final Resul t * [place] ARTHROCENTESIS ASPIR&/INJ MAJOR JT/BURSA W/O US (02/26/2025 [...] to verify the correct patient, procedure, equipment, client support analyst and site/side marked as required. Patient was prepped and draped in the usual sterile fashion. us Jaiden Fuentes MD IN CLINIC/BEDSIDE ORDERABLES Final Result * Dexa Bone Density (08/25/2024 11:50 AM EDT) Anatomical Region Laterality Modality L-spine Radiographic Deepali ging Narrative 09/06/2024 8:02 AM EDT [facility] - Bone [facility] Mineral Metabolism Clinic [address] [place] [address] DXA Bone Densitometry Report: [08/25/2024] BMD test performed using the [employer] DXA System (analysis version: 14.10) manufactured by [employer]. REFERRING PROVIDER: Dr. Eric Barrientos MD CLINICAL [...] 6.4(H) <5.7 % 04/10/2022 8:39 AM EDT [facility] Blood Venous blood specimen / Unknown [...] Adults <6.0% Children and Adolescents <7.5% Source: [place] [employer]. Standards of medical care in diabetes,2017. Diabetes Care.2017:40 (suppl 1):S1-S135. HbA1c assay performed by an ion-exchange chromatography method that is certified traceable to the DCCT. us Pratik Carver MD LAB BLOOD ORDERABLES Final Res ult [facility] [address] [place] [address] from Last 3 Months or Most Recently Relevant to Health Maintenance Insurance [facility] MEDICARE Advance Directives * Full Code (Latest Code Status on File) Date Activated Date Inactivated Comments 07/22/2022 1:01 PM 07/25/2022 4:04 PM Question Answer Comments Patient has decision-making capacity? Yes Care Teams Account Associate Relationship Specialty Start Date End Date Gary Roberts MD [address] [place] [address] PCP - General 10/18/20
--- OUTSIDE RECORDS SUMMARY | 2025-05-23 12:35 | XMS_ITS | Clinical Summary ---
[facility] Address [address] [place] [address] Care Team Providers Care Brand Recorder Name Role Phone Gary Roberts MD Primary [...] (ZYLOPRIM) 300 MG tablet 7 Active ZENPEP 48793-71090 units capsule delayed-release particles TAKE 1 CAPSULE [...] Take 1 packet by mouth Daily. Active [place]-3 Fatty Acids (fish oil) 1000 MG capsule [...] Every 12 (Twelve) Hours. Active nystatin (MYCOSTATIN) 093412 UNIT/GM powder Apply topically to the appropriate [...] Department Care Team Description 04/04/2025 Prior Authorization [facility] [address] [address] Martha Hutchinson MD 03/28/2025 Refill [facility] [address] [address] Martha Hutchinson MD Atrophy of vagina 03/19/2025 2:10 PM EDT Office Visit [facility] [address] [address] Martha Hutchinson MD Women's annual routine gynecological examination (Primary Dx); Encounter for screening mammogram for breast cancer; Vaginal atrophy 03/19/2025 Travel 03/13/2025 Telephone [facility] G[facility]OLOG[facility] [address] [facility] [address] [place] [address] Martha Hutchinson MD Med Refill [...] Info) Description 09/17/2025 11:10 AM EDT Appointment [facility] [address] [place] [address] 03/28/2026 11:10 AM EDT Office Visit [facility] GYN[facility]OLOGY [address] [place] [phone] Martha Hutchinson MD [address] [facility] [address] [place] [address] Health Maintenance Due Date Last Done Comments TDAP/TD VACCINES (1 - Tdap) 1969 COLOGUARD 12/24/1995 COLON CANCER SCREENING 5 YEA R SIGMOIDOSCOPY 12/24/1995 CT COLONOGRAPHY 12/24/1995 FECAL OCCULT BLOOD TEST 12/24/1995 FIT Testing (1 year) 12/24/1995 ZOSTER VACCINE (1 of 2) 2000 ANNUAL WELLNESS VISIT 10/09/2016 HEPATITIS C SCREENING 10/09/2016 HEMOGLOBIN A1C 10/07/2022 04/09/2022, 1108/2021, 06/26/2014 COLONOSCOPY 12/21/2022 12/21/2012 COLORECTAL CANCER SCREENING 12/21/2022 INFLUENZA VACCINE 01/05/2025 04/03/2021, , 02/23/2020, Additional history exists COVID-19 Vaccine (2024- 6 season) 2025 03/11/2022, 03/12/2021, 07/22/2020, Additional [...] fall-prevention measurements. The National Osteoporosis Foundation recommends (http://www.nof.org/hcp/practice/tbobqmyu-ulg-wzbrjqet-guidelines/clinic ans-guide) that FDA-approved medical therapies be considered [...] the left hip with 95% confidence is 0.552183 gm/cm2 at the hip and 0.080177 g/cm2 at the lumbar spine. This report [...] fall-prevention measurements. The National Osteoporosis Foundation recommends (http://www.nof.org/hcp/practice/latutenu-lpz-yugzyxff-guidelines/clinic ans-guide) that FDA-approved medical therapies be considered [...] the left hip with 95% confidence is 0.932887 gm/cm2 at the hip and 0.685907 g/cm2 at the lumbar spine. This report was finalized on 11/24/2018 12:[address] Jose Latif. Jacky Quezada MD IMG DXA ORDERABLES Final Result * (ABNORMAL) Hemoglobin A1c (06/26/2014 10:55 AM EST) Hemoglobin A1C 6.5(H) 4.00 - 6.00 % [facility] Comment: DF by IF @ 06/26/2014 11:44 The [place] Diabetes [employer] recommends maintenance of Hemoglobin A1C at 7.0% or lower. Goals for Hemoglobin A1C reduction may need to be modified if hypoglycemia is a problem. Mean Bld Glu Estim. 135 mg/dL [facility] Blood specimen (specimen) 06/26/2014 10:55 AM EST Narrative [facility] - 06/26/2014 11:44 AM EST Specimen Type: Blood us Curt Gipson MD LAB BLOOD ORDERABLES Final Resu lt [facility] [address] [place] [address], from Last 3 Months or Most Recently Relevant to Health Maintenance Insurance [facility] Medicare [employer] PPO Care Teams Brand Recorder Relationship Specialty Start Date End Date Gary Roberts MD [facility] [address] [facility] [address] [place] [address] PCP - General 11/11/15
--- OUTSIDE RECORDS SUMMARY | 2025-05-23 12:36 | XMS_ITS | Encounter Summary ---
[facility] [address] [place] [id number] Care Team Providers Care Second Officer Name Role Phone Gary Roberts MD Primary Care Provider Encounter Details Date Type Department Care Team (Late st Contact Info) Description 03/28/2025 Refill [facility] [address] [address] Martha Hutchinson MD [address] [place] [address] Atrophy of vagina Social History Tobacco Use [...] refill of Estradiol 10 MCG VA TAB [facility] [phone] documented in this encounter Plan of Treatment Upcoming Encounters Date Type Department Care Team (Late st Contact Info) Description 09/17/2025 11:10 AM EDT Appointment [facility] [address] [place] [phone] 03/28/2026 11:10 AM EDT Office Visit [facility] G[facility] [address] [phone] Martha Hutchinson MD [address] [address] documented as of this encounter Visit Diagnoses Diagnosis Atrophy of vagina Postmenopausal atrophic vaginitis documented in this encounter Care Teams Second Officer Relationship Specialty Start Date End Date Gary Roberts MD [address] [facility] [address] [place] [address] PCP - General 11/11/15 documented as of this encounter
--- OUTSIDE RECORDS SUMMARY | 2025-05-23 12:37 | XMS_ITS | Encounter Summary ---
Author Organization [facility] Address [address] [place] [address] Care Team Providers Care Safety And Health Manager Name Role Phone Gary Roberts MD Primary Care Provider +1- [phone] Encounter Details Date Type Department Care Team (Late st Contact Info) Description 04/04/2025 Telephone [facility] Infusion [address] [place] [address] Frida Gallardo, [place] [address] Social History Tobacco Use Types Packs/Day Years [...] drink first t figueroa in the morning (EYE-JAVA J2EE TECHNICAL LEAD) to steady your nerves or to get [...] Prolia J-Code: J0897 CPT Code: n/a S-Codes ([place]): n/a Quantity and Units of Measure Authorized: 120 Day Supply: 180 Diagnosis Code: M81.0 Insurance Name: [facility] Insurance Type: Medicare Where did you submit request and how (portal/fax/phone number): [facility] portal Authorization/Reference Number: [id number] Approval Dates: 04/04/2025-04/04/2026 Filling Pharmacy/SOC: [facility] Patient has been approved to receive infusion treatment at outside facility. [facility] will follow up with facility to make sure patient has been scheduled and received first dose. Specialty Medication: Prolia Filling Pharmacy/SOC: [facility] documented in this encounter Plan of Treatment Upcoming Encounters Date Type Department Care Team ([facility] st Contact Info) Description 03/21/2026 11:40 AM EDT Office Visit [facility] Nephrology, Bone & Mineral Metabolism [address] [facility], [address] [place] [address] Edinson Reyes MD [address] [place] [address] 05/28/2026 11:20 AM EST Appointment [facility] Bone & Mineral Metabolism [address], [address] [place] [address] 05/28/2026 11:40 AM EST Office Visit [facility] [address] [facility] [address] [facility], [address] [place] [address] Eric Barrientos MD [address] [facility] [facility] [address] [place] [address] documented as of this encounter Visit Diagnoses [...] documented as of this encounter Care Teams Safety And Health Manager Relationship Specialty Start Date End Date Gary Roberts MD [address] [place] [address] PCP - General 10/18/20 documented as of this encounter
--- OUTSIDE RECORDS SUMMARY | 2025-05-23 12:37 | XMS_ITS | Encounter Summary ---
Author Organization Healthcare Address [address] [place] [place] [address] Care Team Providers Care Nuclear Equipment Research Engineer Name Role Phone Gary Roberts MD Primary Care Provider +1- [phone] Encounter Details Date Type Department Care Team [...] drink first t figueroa in the morning (EYE-CYTOGENETICS TECHNOLOGIST) to steady your nerves or to get [...] [facility], [address] [place] [address] Edinson Reyes MD [address] [place] [phone] 05/28/2026 11:20 AM EST Appointment [facility] Bone & Mineral Metabolism [address] [facility], [address] [place] [address] 05/28/2026 11:40 AM EST Office Visit [facility] Bone & Mineral Metabolism [address] [facility], [facility] [address] [place] [address] Eric Barrientos MD [address] [facility] [address] [place] [address] documented as of this encounter Visit [...] documented as of this encounter Care Teams Nuclear Equipment Research Engineer Relationship Specialty Start Date End Date Gary Roberts MD [address] [place] [address] PCP - General 10/18/20 documented as of this encounter
--- OUTSIDE RECORDS SUMMARY | 2025-05-23 12:37 | XMS_ITS | Encounter Summary ---
Author Organization Healthcare Address [address] [place] [address] Care Team Providers Care Sap Solutions Architect Name Role Phone Gary Roberts MD Primary Care Provider +1- [phone] Encounter Details Date Type Department Care Team [...] drink first t figueroa in the morning (EYE-SCOURING PADS SUPERVISOR) to steady your nerves or to [...] Description 03/21/2026 11:40 AM EDT Office Visit [facility] Nephrology, Bone & Mineral Metabolism [address] [facility], [address] [place] [address] Edinson Reyes MD [address] [place] [address] 05/28/2026 11:20 AM EST Appointment [facility] Bone & Mineral Metabolism [address] [facility], [address] [place] [address] 05/28/2026 11:40 AM EST Office Visit [facility] Bone & Mineral Metabolism [address] [facility], [address] [place] [address] Eric Barrientos MD [address] [facility] [address] [place] [address] documented as of this encounter [...] documented as of this encounter Care Teams Sap Solutions Architect Relationship Specialty Start Date End Date Gary Roberts MD [address] [place] [address] PCP - General 10/18/20 documented as of this encounter
--- OUTSIDE RECORDS SUMMARY | 2025-05-23 12:37 | XMS_ITS | Encounter Summary ---
Author Organization [facility] Address [address] [place] [address] Care Team Providers Care Bariatric Surgeon Name Role Phone Gary Roberts MD Primary Care Provider +1- [phone] Encounter Details Date Type Department Care Team ([facility] st Contact Info) Description 04/26/2025 Telephone [facility] Bone [facility] Mineral Metabolism [address] [facility], [address] [place] [address] Chapo Santoro, PharmD [address] [place] [address] Social History Tobacco Use Types [...] drink first t figueroa in the morning (EYE-INVESTMENT RECOVERY TECHNICIAN) to steady your nerves or to [...] as of this encounter Miscellaneous Notes * Addendum Note - Chapo Santoro PharmD - 05/15/2025 12:36 PM ESTAddended by: CHAPO SANTORO on: 05/15/2025 12:36 PM Modules accepted: Orders * Addendum Note - Chapo Santoro PharmD - 05/15/2025 12:19 PM ESTAddended by: CHAPO SANTORO on: 05/15/2025 12:19 PM Modules accepted: Orders * Clinician Note - Chapo Santoro PharmD - 05/15/2025 12:15 PM EST Spoke with Dr. Barrientos today. She is agreeable with plan to transition to Reclast 5mg at this time given infection risk and ongoing cellulitis. Of note, patient does have CKD with most recent GFR ~49 (2020 CKD-EPI Cystatin C). We will monitor closely with post-labs. I called patient to discuss and leftvoicemail with instructions to call back at my direct line. Will place order after discussing with patient if she is agreeable. Addendum 05/15/25 Patient returned call. She is still being evaluated for cellulitis and possible complications. She is pending an MRI. She is agreeable with plan to transition to Reclast. Will place order and notify [facility]. Chapo Santoro PharmD, RANDI Clinical Pharmacist Nephrology, [facility] [address] [place] [address] * Clinician Note - Chapo Santoro PharmD - 05/11/2025 12:47 PM EST Patient called clinic today to discuss Prolia. She states [facility] called to schedule dosebut she is still dealing with cellulitis for which she was recently hospitalized. She is undergoingworkup including imaging. She is currently on linezolid for treatment. Counseled patient to avoid Prolia administration while on antibiotics. I will reach out to Dr. Barrientos to see if Prolia is still theoptimal treatment or if we should consider bisphosphonate. Chapo Santoro PharmD, RANDI Clinical Pharmacist Nephrology, [facility] [address] [place] [id number] * Clinician Note - Chapo Santoro PharmD - 04/26/2025 9:29 AM EST Called [...] ~2 weeks after finishing antibiotics before calling [facility] to schedule. Patient expressed understanding of plan outlined above, encouraged to call clinic with any questions or concerns. Chapo Santoro PharmD, RANDI Clinical Pharmacist Nephrology, [facility] [address] [place] [address] documented in this encounter Plan of Treatment Upcoming Encounters Date Type Department Care Team (Late st Contact Info) Description 03/21/2026 11:40 AM EDT Office Visit [facility] Nephrology, Bone & Mineral Metabolism [address] [facility], [address] [place] [address] Edinson Reyes MD [address] [place] [phone] 05/28/2026 11:20 AM EST Appointment [facility] Bone & Mineral Metabolism [address] [facility], [address] [place] [address] 05/28/2026 11:40 AM EST Office Visit [facility] Bone & Mineral Metabolism [address] [facility], [facility] [address] [place] [address] Eric Barrientos MD [address] [place] [address] documented as of this encounter [...] documented as of this encounter Care Teams Bariatric Surgeon Relationship Specialty Start Date End Date Gary Roberts MD [address] [place] [address] PCP - General 10/18/20 documented as of this encounter
--- OUTSIDE RECORDS SUMMARY | 2025-05-23 12:37 | XMS_ITS | Encounter Summary ---
Author Organization Healthcare Address [address] [place] [address] Care Team Providers Care Pet Feeder Name Role Phone Gary Roberts MD Primary Care Provider +1- [phone] Encounter Details Date Type Department Care Team ([facility] st Contact Info) Description 04/12/2025 Orders Only [facility] Mineral Met[facility] [address] [facility], [address] [place] [address] Chapo Santoro, PharmD [address] [place] [address] Age-related osteoporosis without current pathological [...] drink first t figueroa in the morning (EYE-COMMUNITY PRODUCT SPECIALIST) to steady your nerves or to [...] Description 03/21/2026 11:40 AM EDT Office Visit [facility] Nephrology, Bone & Mineral Metabolism [address] [facility], [address] [place] [address] Edinson Reyes MD [address] [place] [phone] 05/28/2026 11:20 AM EST Appointment [facility] Bone & Mineral Metabolism [address] [facility], [address] [place] [address] 05/28/2026 11:40 AM EST Office Visit [facility] Bone & Mineral Metabolism [address] [facility], [address] [place] [address] Eric Barrientos MD [address] [facility] [address] [place] [address] documented as of this encounter Visit [...] documented as of this encounter Care Teams Pet Feeder Relationship Specialty Start Date End Date Gary Roberts MD [address] [place] [address] PCP - General 10/18/20 documented as of this encounter
[2025-05-23] MEDS: SODIUM CHLORIDE 0.9% 10ML SYR (RAD ONLY) 10 ML IV ×2 (13:37)
[2025-05-23] MEDS: ISOTOPE MYOVIEW (PER STUDY) 1 DOSE IV (13:37)
== END 2025-05-23 23:59 | disposition home or self-care (01) ==
LOC: RAD 10:55
PROVIDERS: PCP Family Medicine; Visit Provider Physician Assistant
DX: I48.0 Paroxysmal atrial fibrillation (principal); E78.00 Pure hypercholesterolemia, unspecified; R94.39 Abnormal result of other cardiovascular function study; R03.0 Elevated blood-pressure reading, without diagnosis of hypertension; R79.89 Other specified abnormal findings of blood chemistry; R42 Dizziness and giddiness; R94.31 Abnormal electrocardiogram [ECG] [EKG]
CPT/HCPCS: 78452; 93017; 93018; A9502; J2785